=== PATIENT | female | born 1945 | race Caucasian/White ===

== ENCOUNTER → 2017-12-27 12:06 | Outpatient (CLI) | payer MEDICARE, OTHER, SELFPAY ==
--- NOTE | 2017-12-27 | IMM_PTH ---
PATIENT: GABBY TOWNSEND LOC: [facility] U#:[id number] AGE/SX: 80/F ROOM: RE12/27/[address]: Dr. Alexandre Otto MD : 1945 BED: DIS: SPEC #: [id number] RECD: 12/28/17 10:25 STATUS: LUZ REDeniz #: [id number] RENATA: 12/27/17 00:[address]: Alexandre Otto DEPT: IMMUNOHISTOCHEMISTRY RECD BY: Gianna Belle ENTERED: 12/28/17 10:26 SP TYPE: IMMUNO OTHR DR: Dr. Jb Cast MD Tissues: Right breast, NOS Procedures: CK5-6 (add) CK8 (add) E-CAD (add) HER2 CHONG (add) KI-67 (add) P53 (add) KY (add) ER (initial) PHYSICIAN & INSTITUTION [place] [id number] SPECIMEN INFORMATION: Tissue Source: Right breast Clinical Info: Right breast lump Specimen Number: [id number] CPT code: 46741, 73037 x4, 46412 x3 METHODOLOGY: Deparaffinized sections of prefer/formalin-fixed tissue or PAP/DQ stained slides are incubated with monoclonal/polyclonal antibodies/oligonucleotide probes. Localization is made via biotin free immunoperoxidase method. Appropriate controls are performed and reacted as expected. Results on target cell population are indicated in the following table: RESULTS: ANTIBODY / CLONE RESULT E-Cad (ECH-6) positive CK8 (49ogioN24) positive CK5-6 (D5 & 1684) negative Ki-67 (30-9) positive, low P53 (DO-7) positive MORPHOMETRIC ANALYSIS ER (clone 6F11) >95%, strong KY (clone 16/1E2) 51%, weak Her-2Neu (clone CB11) 0 The prognostic test for HER2 is performed on formalin-fixed paraffin embedded tissue. A 3+ (positive) staining pattern is defined as intense, homogeneous, complete, circumferential membranous staining in >10% of contiguous tumor cells. A similar weak (2+) staining pattern is interpreted as equivocal. ARISTIDES follow-up testing is recommended for all equivocal cases. Positivity/negativity for ER/KY is reported if > or < 1% of the tumor cells are immuno- reactive, respectively. The ASCO/CAP criteria is used for scoring. Reference: Journal of Clinical Oncology, 2013; 31:9871-4042 & 2010; 16:0079-5004. Duration of fixation: 9.5 Hrs; Sample Adequate: Yes. These assays have not been validated on decalcified tissues. Results should be interpreted with caution given the likelihood of false negativity on decalcified specimens. These tests were developed and their performance characteristics determined by [facility]. They may not have been cleared or approved by the U.S. Food and Drug Administration. The FDA has determined that such clearance or approval is not necessary. INTERPRETATION: Right breast, biopsy: Invasive ductal carcinoma, nuclear grade 2. Positive for estrogen receptors (favorable prognostic indicator). Positive for progesterone receptors (favorable prognostic indicator). Negative for overexpression of [id number]. SJ:tori 12/31/17
--- NOTE | 2017-12-27 10:00 | BRBX_PTH ---
PATIENT: GABBY TOWNSEDN LOC: [facility] U#:[id number] AGE/SX: 80/F ROOM: RE12/27/[address]: Dr. Alexandre Otto MD : 1945 BED: DIS: SPEC #: [id number] RECD: 12/27/17 11:50 STATUS: LUZ JUDY #: [id number] RENATA: 12/27/17 10:[address]: Alexandre Otto DEPT: SURGICAL PATHOLOGY RECD BY: Desmond Richardson ENTERED: 12/27/17 13:27 SP TYPE: BREAST BX OTHR DR: Dr. Jb Cast MD Tissues: Right breast, NOS Procedures: Surgery Specimen Level IV HEADER OPERATION: Right breast biopsy PRE-OP DIAGNOSIS: Right breast lump TISSUE SUBMITTED: Right breast tissue ISCHEMIC TIME: 1 minute FIXATION TIME: 9.5 hours MICROSCOPIC DIAGNOSIS Right breast, core biopsy: Invasive ductal carcinoma with apocrine features, nuclear 2 (1 cm in greatest length). SJ:tori 12/28/17 COMMENT Immunohistochemistry ([id number]) supports the above diagnosis. ER/OR/Zrx4taw studies are being performed on sections of tumor and the results from this study will be reported separately ([id number]). Case has been reviewed in consultation with Dr. Beck who concurs with the above diagnosis. IDC:AM MICROSCOPIC DESCRIPTION Slides are reviewed. GROSS DESCRIPTION Received in fixative is one container labeled with the patient's name and designated right breast. The specimen consists of two elongated fragments of coreas-yellow fibroadipose tissue that in aggregate measure 2 x 0.2 x 0.1 cm. The entire specimen is submitted in one cassette. / JACK:tori 12/27/17 TC:0 CPT: 36067
== END ==
PROVIDERS: Visit Provider Surgery
DX: C50.911 Malignant neoplasm of unspecified site of right female breast (principal)
CPT/HCPCS: 88305; 88341; 88342

== ENCOUNTER → 2018-01-08 09:09 | Outpatient (CLI) | payer MEDICARE, OTHER, SELFPAY ==
--- NOTE | 2018-01-08 09:18 | MRI_ITS ---
STUDY: BILATERAL BREAST MR WITHOUT AND WITH CONTRAST REASON FOR EXAM: Female, 72 years old. Newly diagnosed right invasive ductal carcinoma. TECHNIQUE: Multi-sequence multi-echo imaging of both breasts was performed with a dedicated breast coil. T1-weighted and T2-weighted images were performed before the administration of contrast. T1-weighted images were also performed after the administration of 10 mL of Gadavist contrast intravenously without complications. COMPARISON: Bilateral mammogram dated December 12, 2017 and right breast ultrasound dated December 18, 2017. FINDINGS: RIGHT BREAST: The breast tissue is fatty with minimal background enhancement. At the 9:00 position of the right breast there is a 1.4 cm x 1 cm x 0.9 cm. Irregular enhancing mass corresponding to the hypoechoic mass seen on the right breast ultrasound dated December 18, 2017. LEFT BREAST: The breast tissue is fatty with minimal background enhancement. At the 12:00 position of the left breast approximately 3.2 cm above the nipple and 4.8 cm behind the nipple there is an irregular enhancing mass measuring 1.9 cm x 1.5 cm x 1.3 cm. This lesion is highly suspicious for a contralateral breast cancer and a second look ultrasound with subsequent ultrasound-guided biopsy of this lesion is recommended. There are no enlarged or abnormal lymph nodes. There is no abnormality in the visualized regions of the chest or liver. MRI/Breast w/o and/or W Cont Bilat IMPRESSION: Lesion in the right breast corresponding to the ultrasonographic abnormality representing invasive ductal carcinoma. Left breast lesion highly suspicious, for which second look ultrasound with subsequent ultrasound-guided biopsy is recommended. Dr. Otto, the referring physician was given this information by Dr. Perez by phone at 1:35 PM, EST. CATEGORY: BIRADS Category 0: Incomplete. Need additional imaging evaluation. A letter regarding these results will be sent to the patient by the facility within 30 days. N.B. : The above information has been verbally conveyed by Blayne Perez MD to Alexandre Gannon , Referring Physician, on 01/08/2018 13:41:31 (ET). Electronically Signed: Blayne Perez MD at 13:43 EST , Service support , N.B. : The above information has been verbally conveyed by Blayne Perez MD to Alexandre Gannon , Referring Physician, on 01/08/2018 13:41:31 (ET).
--- NOTE | 2018-01-08 15:12 | US_ITS ---
STUDY: ULTRASOUND BREAST - LEFT REASON FOR EXAM: Female, 72 years old. Pain in the left breast. TECHNIQUE: Axial and longitudinal images of the LEFT breast were performed with a high resolution ultrasound transducer. COMPARISON: Comparison is made with prior MRI of the breast done earlier in the day. FINDINGS: LEFT Breast: There is a 1.1 cm x 1 cm x 1.2 cm hypoechoic irregular solid nodule at the 12:00 position of the breast at 3 cm from nipple. This lesion is taller than wide. A biopsy is recommended for further evaluation. US/Breast Limited Unilateral IMPRESSION: 1.1 cm x 1 cm x 1.2 cm irregular nodule at the 12:00 position of the breast at 3 cm from nipple as described. A biopsy is recommended. ASSESSMENT CATEGORY: BIRADS Category 5: Highly Suggestive of Malignancy - Appropriate Action Should Be Taken. A letter regarding these results will be sent to the patient by the facility within 30 days. Electronically Signed: Gabriel Tabor MD at 16:01 EST Tel [phone], Service support ,
== END ==
PROVIDERS: Family Provider Family Medicine; PCP Family Medicine; Visit Provider Surgery
DX: C50.911 Malignant neoplasm of unspecified site of right female breast (principal); N64.4 Mastodynia
CPT/HCPCS: 76642; 77059; A9585; C8908

== ENCOUNTER → 2018-01-10 12:40 | Outpatient (CLI) | payer MEDICARE, OTHER, SELFPAY ==
--- NOTE | 2018-01-10 | IMM_PTH ---
PATIENT: GABBY TOWNSEND LOC: [facility] U#:[id number] AGE/SX: 80/F ROOM: RE01/10/[address]: Dr. Alexandre Otto MD : 1945 BED: DIS: SPEC #: [id number] RECD: 01/11/18 10:58 STATUS: LUZ REQ #: [id number] RENATA: 01/10/18 00:[address]: Alexandre Otto DEPT: IMMUNOHISTOCHEMISTRY RECD BY: Gianna Belle ENTERED: 01/11/18 10:59 SP TYPE: IMMUNO OTHR DR: Dr. Jb Cast MD Tissues: Left breast, NOS Procedures: CALPONIN-1 (add) CK5-6 (add) CK8 (add) E-CAD (add) HER2 CHONG (add) KI-67 (add) P53 (add) GA (add) P40 (add) ER (initial) PHYSICIAN & INSTITUTION [address] [address] SPECIMEN INFORMATION: Tissue Source: Left breast tissue Clinical Info: Left breast abnormal MRI Specimen Number: [id number] CPT code: 00527, 11445 x6, 37933 x3 METHODOLOGY: Deparaffinized sections of prefer/formalin-fixed tissue or PAP/DQ stained slides are incubated with monoclonal/polyclonal antibodies/oligonucleotide probes. Localization is made via biotin free immunoperoxidase method. Appropriate controls are performed and reacted as expected. Results on target cell population are indicated in the following table: RESULTS: ANTIBODY / CLONE RESULT P53 (DO-7) positive, 5% Ki-67 (30-9) positive, low to moderate CK8 (40frwsH86) positive CK5-6 (D5 & 1684) negative Calponin-1 (WQ176K) negative P40 (BC28) negative E-Cad (ECH-6) positive MORPHOMETRIC ANALYSIS ER (clone 6F11) >95%, strong GA (clone 16/1E2) 3%, dim Her-2Neu (clone CB11) 3+ The prognostic test for HER2 is performed on formalin-fixed paraffin embedded tissue. A 3+ (positive) staining pattern is defined as intense, homogeneous, complete, circumferential membranous staining in >10% of contiguous tumor cells. A similar weak (2+) staining pattern is interpreted as equivocal. ARISTIDES follow-up testing is recommended for all equivocal cases. Positivity/negativity for ER/GA is reported if > or < 1% of the tumor cells are immuno- reactive, respectively. The ASCO/CAP criteria is used for scoring. Reference: Journal of Clinical Oncology, 2013; 31:0638-5083 & 2010; 16:9087-9932. Duration of fixation: 8 Hrs; Sample Adequate: Yes. These assays have not been validated on decalcified tissues. Results should be interpreted with caution given the likelihood of false negativity on decalcified specimens. These tests were developed and their performance characteristics determined by [facility]. They may not have been cleared or approved by the U.S. Food and Drug Administration. The FDA has determined that such clearance or approval is not necessary. INTERPRETATION: Left breast, biopsy: Invasive ductal carcinoma, nuclear grade 3/3. Positive for estrogen receptors (favorable prognostic indicator). Positive for progesterone receptors (favorable prognostic indicator). Positive for overexpression of EMO0akz. AM:tori 01/14/18
--- NOTE | 2018-01-10 | BRBX_PTH ---
PATIENT: GABBY TOWNSEND [facility] U#:[id number] AGE/SX: 80/F ROOM: RE01/10/[address]: Dr. Alexandre Otto MD : 1945 BED: DIS: SPEC #: [id number] RECD: 01/10/18 15:00 STATUS: LUZ JUDY #: [id number] RENATA: 01/10/18 00:[address]: Alexandre Otto DEPT: SURGICAL PATHOLOGY RECD BY: Raul Serrano ENTERED: 01/10/18 15:00 SP TYPE: BREAST BX OTHR DR: Dr. Jb Cast MD Tissues: Left breast, NOS Procedures: Surgery Specimen Level IV HEADER OPERATION: Left breast biopsy PRE-OP DIAGNOSIS: Left breast abnormal MRI TISSUE SUBMITTED: Left breast tissue ISCHEMIC TIME: 1 minute FIXATION TIME: 8 hours MICROSCOPIC DIAGNOSIS Left breast, core biopsy: Invasive ductal carcinoma with the following characteristics: Maximal length - 8 mm Nuclear grade ? 01/26 AM:rg 01/11/18 COMMENT The carcinoma has apocrine features. ER/NE/Wgp4mym studies are being performed on sections of tumor and the results from this study will be reported separately ([id number]). Reference is made to the patient?s right breast needle core biopsy from 12/28/17 ([id number]) in which invasive ductal carcinoma with apocrine features and nuclear grade 2 was identified. Case has been reviewed in consultation with Dr. Escobar who concurs with the above diagnosis. IDC:JACK MICROSCOPIC DESCRIPTION Slides are reviewed. GROSS DESCRIPTION Received in fixative is one container labeled with the patient's name and designated left breast. The specimen consists of multiple elongated fragments of coreas-yellow fibroadipose tissue that in aggregate measure 2.5 x 0.5 x 0.1 cm. The entire specimen is submitted in one cassette. / JACK:tori 01/10/18 TC:0 CPT: 40874
== END ==
PROVIDERS: Family Provider Family Medicine; PCP Family Medicine; Visit Provider Surgery
DX: R92.8 Other abnormal and inconclusive findings on diagnostic imaging of breast (principal); C50.912 Malignant neoplasm of unspecified site of left female breast
CPT/HCPCS: 88305; 88341; 88342

== ENCOUNTER → 2018-01-14 07:24 | Outpatient (CLI) | payer MEDICARE, OTHER, SELFPAY ==
--- NOTE | 2018-01-14 08:00 | PET_ITS ---
EXAMINATION: FDG PET CT INDICATIONS: A 72-year-old female with reported history of carcinoma of the breast presenting for initial staging examination. COMPARISON EXAMINATION: None available. INDEX LESION SIZE SUV INTERPRETATION Left breast nodular 11.6 mm (frame 227) 4.4 Fulfills quantitative criteria for viable neoplasm NON-INDEX LESION SIZE SUV INTERPRETATION Left adrenal gland 1.9 Quantitative criteria for viable neoplasm are not fulfilled TECHNIQUE: Following the intravenous administration of 13.4 mCi of F-18 deoxyglucose via the left hand, multiplanar image acquisitions of the neck, chest, abdomen and pelvis to level of mid thigh, obtained at one hour post radiopharmaceutical administration contemporaneously interpreted with the current CT of the neck, chest, abdomen and pelvis to level of mid thigh, dated 01/14/18 via coregistration reveal: SERUM GLUCOSE LEVEL: 133 mg/dl. HEIGHT: 65 inches. WEIGHT: 230 lbs. FINDINGS: 1. Focal increased glucose concentration is defined in a single nodular focus within the left breast. The calculated maximum standard uptake value is 4.4. The maximal axial diameter of the corresponding metabolic, morphologic abnormality on review of CT of the thorax dated 01/14/18 is 11.6 mm (AP). 2. Asymmetric increased glucose concentration is observed in the left upper abdomen contiguous to the left adrenal gland generating a calculated maximum standard uptake value of 1.9. Quantitative criteria for viable neoplasm are not fulfilled. 3. Normal physiologic distribution of the radiopharmaceutical is apparent in the hepatic (2.9) and splenic parenchyma, both renal units, bladder and visualized intestinal tract. There is uniform distribution of the radiopharmaceutical concentration compared on the cerebellar hemispheres and cerebral cortex. Diffuse intestinal tract activity is noted throughout all four quadrants of the abdominal-pelvic retroperitoneum, mesentery consistent with normal physiologic distribution of the radiopharmaceutical. Prominent glucose metabolism is diffusely defined in the descending thoracic and focally apparent in the abdominal aorta. Pertinent CT findings are as follows. CHEST: An azygos fissure is defined. There are no parenchymal densities-nodules noted in the right-left hemithorax manifesting quantitatively significant increased glucose metabolism. Bilateral subcentimeter axillary soft tissue densities-lymph nodes with fatty hilus formation are ametabolic. Atherosclerotic calcification is defined in the thoracic aorta without evidence of dilatation, aneurysm formation. Coronary arterial calcification is observed. ABDOMEN AND PELVIS: Atherosclerotic calcification is defined in the abdominal aorta without evidence of dilatation, aneurysm formation. Abdominal-pelvic arterial calcification is observed. A fat-containing ventral periumbilical hernia is noted. Colonic diverticulosis is defined. Calcifications are noted in the bilateral lower hemipelvis in proximity to the adnexa without evidence of facilitated glucose metabolism. SKELETAL: Degenerative changes defined in the cervical, thoracic and lumbar spine demonstrate no evidence for glucose hypermetabolism. PET/PET/CT Tumor Base -Thigh Init IMPRESSION: 1. ABNORMAL EXAMINATION INDICATIVE OF MALIGNANT VIABLE NEOPLASM. 2. Increased glucose concentration observed in the left breast fulfills quantitative criteria for viable neoplasm. 3. Enhanced glucose concentration demonstrated in the left adrenal gland does not fulfill quantitative criteria for viable adrenal gland neoplasm. (Jessi and Chito, Journal of Nuclear Medicine 42:151 P 2002. Lyle, Journal of Nuclear Medicine 45:1340, 2004). 4. Facilitated glucose metabolism manifest in descending thoracic, as well as abdominal aorta is commensurate with activated leukocytes associated with atherosclerotic plaque formation. (Margo hamlin al, Clinical Nuclear Medicine 29:93, 2004). 5. No other quantitatively significant hypermetabolic abnormalities are noted. There is no definitive scintigraphic evidence of distant metastatic disease. Electronic Signature Desmond Delgado D.O. Electronically Signed: Desmond Delgado DO at 23:06 EST Tel , Service support ,
== END ==
PROVIDERS: Family Provider Family Medicine; PCP Family Medicine; Visit Provider Surgery
DX: C50.411 Malignant neoplasm of upper-outer quadrant of right female breast (principal); C50.912 Malignant neoplasm of unspecified site of left female breast
CPT/HCPCS: 78815; A9552

== ENCOUNTER 2018-01-16 10:39 | Observation (INO) | payer MEDICARE, OTHER, SELFPAY ==
[2018-01-08 09:43] LABS: Hematocrit 43.5 % (37-47); Mean Corp Hgb Conc 32.2 g/gl (32-36); Mean Corpuscular Hgb 29.2 pg (27.0-32.0); Mean Corpuscular Volume 90.6 fL (81-99); Mean Platelet Vol. 10.2 fl (6.2-12.0); Platelet Count 347 K/mm3 (150-450); RBC Distribution Width CV 13.4 % (11.6-14.6); Scan Indicated on CBC? Y/N NO
[2018-01-08 09:48] LABS: ALB/GLOB Ratio 0.9 RATIO (0.9-2.4); AST(SGOT) 12 U/L (15-37); Alanine Aminotransfer ALT/SGPT 22 U/L (13-56); Albumin, Serum 3.7 g/dL (3.2-5.0); Alkaline Phosphatase 77 U/L (45-117); Anion Gap 5 (5-15); BUN 13 mg/dL (7-18); BUN/Creat Ratio 16.8 RATIO (10-20); Calcium,Total 9.5 mg/dL (8.5-10.1); Chloride 101 mmol/L (98-107); Creatinine, Serum 0.78 mg/dL (0.55-1.02); EST Glomerular Filtration Rate 78 mL/min (>60); Est Glom Filt Rate - Afr Amer 94 mL/min (>60); Globulin 4.1 g/dL (2.2-4.2); Glucose 178 mg/dL (74-106); Potassium 3.8 mmol/L (3.5-5.1); Protein, Total 7.8 g/dL (6.4-8.2); Sodium Level 138 mmol/L (136-145)
--- NOTE | 2018-01-08 10:51 | EKG12_ITS ---
Test Reason : PRE OP Blood Pressure : / mmHG Vent. Rate : 066 BPM Atrial Rate : 066 BPM P-R Int : 144 ms QRS Dur : 094 ms QT Int : 402 ms P-R-T Axes : 019 030 048 degrees QTc Int : 421 ms Sinus rhythm with frequent Premature ventricular complexes in a pattern of bigeminy Confirmed by DEVIKA CHERY, THOMAS ([id number]), marketing editor SAY GARCIA ([id number]) on 01/09/2018 1:25:29 PM Referred By: Alexandre Otto Confirmed By:THOMAS FORTUNE MD
--- NOTE | 2018-01-08 11:00 | RAD_ITS ---
STUDY: X-RAY CHEST REASON FOR EXAM: Female, 72 years old. Preoperative evaluation. Right breast lumpectomy. TECHNIQUE: Frontal and lateral views of the chest. COMPARISON: November 23, 2015 FINDINGS: The lungs are clear and expanded. There is no demonstrated pleural abnormality. There is stable borderline cardiomegaly. Normal mediastinum and miryam. Normal visualized pulmonary arteries. Normal visualized aortic arch and descending thoracic aorta. There are diffuse degenerative changes of the visualized thoracic spine. Normal visualized ribs, clavicles, and shoulders. There is no demonstrated abnormality of the visualized soft tissue structures of the upper abdomen. RAD/Chest PA and Lateral IMPRESSION: No active or acute cardiopulmonary disease. Electronically Signed: Blayne Perez MD at 11:37 EST , Service support ,
[2018-01-08 13:58] LABS: Hemoglobin A1c 6.9 % (4.2-6.3)
[2018-01-16] VITALS (14 sets, daily range): BP systolic 117–171; BP diastolic 58–70; PULSE 61–78; RESP 16–20; TEMP 36.6–36.7; O2SAT 92–97; BMI 38.0
--- NOTE | 2018-01-16 | IMM_PTH ---
PATIENT: GABBY TOWNSEND LOC: [facility] U#:[id number] AGE/SX: 72/F ROOM: [facility]08 RE01/16/[address]: Dr. Alexandre Otto MD : 1945 BED: 1 DIS: 01/17/2018 SPEC #: [id number] RECD: 01/18/18 10:46 STATUS: LUZ REQ #: [id number] RENATA: 01/16/18 00:[address]: Alexandre Otto DEPT: IMMUNOHISTOCHEMISTRY RECD BY: Gianna Belle ENTERED: 01/18/18 10:49 SP TYPE: IMMUNO OTHR DR: Dr. Jb Cast MD Tissues: A - Axillary lymph node, NOS B - Axillary lymph node, NOS C - Axillary lymph node, NOS Procedures: CK7 (add) Pankeratin (initial) Pankeratin (add) PHYSICIAN & INSTITUTION [place] [address] SPECIMEN INFORMATION: Tissue Source: A ? Right axillary sentinel lymph nodes, B ? Right breast and additional sentinel lymph node, C - Left axillary sentinel lymph nodes Clinical Info: Bilateral breast CA Specimen Number: [id number] A1-A3, A5-A13, B1 & 2, C1-C6 CPT code: 88992 x3, 15231 x37 METHODOLOGY: Deparaffinized sections of prefer/formalin-fixed tissue or PAP/DQ stained slides are incubated with monoclonal/polyclonal antibodies/oligonucleotide probes. Localization is made via biotin free immunoperoxidase method. Appropriate controls are performed and reacted as expected. Results on target cell population are indicated in the following table: RESULTS: ANTIBODY / CLONE RESULT Block A1 AE1-3 (AE1/AE3/PCK26) negative CK7 (OV-TL12/30) negative Block A2 AE1-3 (AE1/AE3/PCK26) negative CK7 (OV-TL12/30) negative Block A3 AE1-3 (AE1/AE3/PCK26) negative CK7 (OV-TL12/30) negative Block A5 AE1-3 (AE1/AE3/PCK26) negative CK7 (OV-TL12/30) negative Block A6 AE1-3 (AE1/AE3/PCK26) negative CK7 (OV-TL12/30) negative Block A7 AE1-3 (AE1/AE3/PCK26) negative CK7 (OV-TL12/30) negative Block A8 AE1-3 (AE1/AE3/PCK26) negative CK7 (OV-TL12/30) negative Block A9 AE1-3 (AE1/AE3/PCK26) negative CK7 (OV-TL12/30) negative Block A10 AE1-3 (AE1/AE3/PCK26) negative CK7 (OV-TL12/30) negative Block A11 AE1-3 (AE1/AE3/PCK26) negative CK7 (OV-TL12/30) negative Block A12 AE1-3 (AE1/AE3/PCK26) negative CK7 (OV-TL12/30) negative Block A13 AE1-3 (AE1/AE3/PCK26) negative CK7 (OV-TL12/30) negative Block B1 AE1-3 (AE1/AE3/PCK26) negative CK7 (OV-TL12/30) negative Block B2 AE1-3 (AE1/AE3/PCK26) negative CK7 (OV-TL12/30) negative Block C1 AE1-3 (AE1/AE3/PCK26) negative CK7 (OV-TL12/30) negative Block C2 AE1-3 (AE1/AE3/PCK26) negative CK7 (OV-TL12/30) negative Block C3 AE1-3 (AE1/AE3/PCK26) negative CK7 (OV-TL12/30) negative Block C4 AE1-3 (AE1/AE3/PCK26) negative CK7 (OV-TL12/30) negative Block C5 AE1-3 (AE1/AE3/PCK26) negative CK7 (OV-TL12/30) negative Block C6 AE1-3 (AE1/AE3/PCK26) negative CK7 (OV-TL12/30) negative These tests were developed and their performance characteristics determined by [facility]. They may not have been cleared or approved by the U.S. Food and Drug Administration. The FDA has determined that such clearance or approval is not necessary. INTERPRETATION: A. Right axillary sentinel lymph nodes, biopsy: Four out of four lymph nodes, negative for metastatic carcinoma. B. Right breast and sentinel lymph node, mastectomy and sentinel lymph node, biopsy: One lymph node, negative for metastatic carcinoma. C. Left axillary sentinel lymph nodes, biopsy: Three out of three lymph nodes, negative for metastatic carcinoma. SJ:tori 01/21/18
--- NOTE | 2018-01-16 | AXNB_PTH ---
PATIENT: GABBY TOWNSEND LOC: MS2 U#:[id number] AGE/SX: 72/F ROOM: [facility] [place] [facility] [place] RE01/16/[address]: Dr. Alexandre Otto MD : 1945 BED: 1 DIS: 01/17/2018 SPEC #: [id number] RECD: 01/16/18 08:26 STATUS: LUZ REDeniz #: [id number] RENATA: 01/16/18 00:[address]: Alexandre Otto DEPT: SURGICAL PATHOLOGY RECD BY: Gianna Belle ENTERED: 01/16/18 09:34 SP TYPE: AX NODE BX OTHR DR: Dr. Jb Cast MD Tissues: A - Axillary lymph node, NOS B - Axillary lymph node, NOS C - Axillary lymph node, NOS D - Left breast, NOS Procedures: Frozen Section (charge) Frozen Section Add'l ([facility]) Surgery Specimen Level V Surgery Specimen Level Frozen (no charge) HEADER OPERATION: Bilateral mastectomy with sentinel lymph node biopsies PRE-OP DIAGNOSIS: Bilateral breast CA TISSUE SUBMITTED: A ? Right sentinel lymph node tissue FS 0823, B ? Right breast and sentinel node FS 0839, C ? Left sentinel node FS 0953, D ? Left breast (suture at axillary aspect) FROZEN SECTION DIAGNOSIS A. Right axillary sentinel lymph nodes, biopsy: Four out of four lymph nodes negative for carcinoma. B. Right breast additional sentinel lymph node, biopsy: One out of one lymph node negative for carcinoma. C. Left axillary sentinel lymph node, biopsy: Two out of two lymph nodes negative for carcinoma. AM:tori 01/16/18 MICROSCOPIC DIAGNOSIS A. Right axillary sentinel lymph node tissue, biopsy: Four out of four lymph nodes, negative for metastatic carcinoma. B. 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 One sentinel lymph node, negative for metastatic carcinoma. C. Left axillary sentinel lymph node tissue, biopsy: Three out of three lymph nodes, negative for metastatic carcinoma. D. 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 INVASIVE BREAST CANCER SUMMARY: (Including specimens A & B) Right breast and axillary sentinel lymph nodes. Specimen ? total breast (including nipple and skin). Procedure ? total mastectomy (including nipple and skin). Lymph node sampling ? sentinel lymph nodes Specimen integrity ? single, intact specimen Specimen laterality ? right breast Tumor site ? central portion Tumor size ? 1.5 x 1.2 x 1 cm Tumor focality ? single focus of invasive carcinoma. Macroscopic and Microscopic extent of tumor: Skin ? invasive carcinoma does not invade into the dermis or epidermis. Nipple ? ductal carcinoma does not involve nipple epidermis. Skeletal muscle ? 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 Extensive intraductal component (EIC) - negative Estimated size (extent) of DCIS - ductal carcinoma in situ comprises about 10% of the total tumor volume and it is present in the area of invasive ductal carcinoma. Number of blocks with DCIS - 2 Number of blocks examined ? 10 (breast tissue) Architectural patterns ? solid and cribriform Nuclear grade ? grade 2 (intermediate) Necrosis ? present, focal (single cell necrosis) Lobular carcinoma in situ (LCIS) ? not identified Histologic type of invasive carcinoma ? invasive ductal carcinoma (no special type) Histologic Grade ([place] grade): Glandular/tubular differentiation - score 3 Nuclear pleomorphism - score 2 Mitotic count ? score 1 Overall grade - 2 (score of 6) Margins: Margins uninvolved by invasive carcinoma. The invasive ductal carcinoma and ductal carcinoma in situ are 1.6 cm away from closest posterior margin. Treatment effect ? response to presurgical (neoadjuvant) therapy ? no known presurgical therapy. Lymph-Vascular invasion ? not identified Dermal lymph-vascular invasion - not identified Lymph nodes: Number of sentinel lymph nodes examined - 5 Total number of lymph nodes examined (sentinel and nonsentinel) - 5 Number of lymph nodes with macrometastases - 0 Number of lymph nodes with micrometastases - 0 Number of lymph nodes with isolated tumor cells - 0 Method of evaluation of sentinel lymph nodes - H & E, multiple levels and IHC. Distance metastasis ? not applicable Additional pathologic findings ? fibrocystic changes Ancillary studies - previously performed on section of tumor ([id number] / [id number]). ER ? positive (>95%, strong) UT ? positive (51%, weak) Her2 homero ? negative (0) Her2 by dual ARISTIDES ? not performed Microcalcifications ? not identified Clinical history - please make reference to previous specimen ([id number]) right breast, core biopsy with diagnosis of invasive ductal carcinoma with apocrine features, nuclear grade 2. PATHOLOGIC STAGE: pT1c pN0(sn) Mx The above summary is in compliance with [employer] (CAP) Cancer Protocols Checklist and [place] [employer] Committee on Cancer (AJCC), Staging Manual, 8th Ed. INVASIVE BREAST CANCER SUMMARY: (including specimens C & D) left breast and sentinel lymph node. Specimen ? total breast (including nipple and skin). Procedure ? total mastectomy (including nipple and skin). Lymph node sampling ? sentinel lymph node Specimen integrity ? single, intact specimen Specimen laterality - left Tumor site ? central portion Tumor size ? 1.5 cm in diameter Tumor focality ? single focus of invasive carcinoma Macroscopic and Microscopic extent of tumor: Skin - invasive carcinoma does not invade into the dermis or epidermis. Nipple - ductal carcinoma in situ does not involve nipple epidermis. Skeletal muscle ? no skeletal muscle present. 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 Extensive intraductal component (EIC) - negative Estimated size (extent) of DCIS - ductal carcinoma in situ comprises about 1% of the total tumor volume and present in the area of invasive ductal carcinoma. Number of blocks with DCIS - 3 Number of blocks examined - 12 Architectural patterns ? cribriform Nuclear grade ? nuclear grade 3 (high) Necrosis ? not identified Lobular carcinoma in situ (LCIS) ? not present Histologic type of invasive carcinoma - invasive ductal carcinoma (no special type) Histologic Grade ([place] grade): Glandular/tubular differentiation - score 3 Nuclear pleomorphism - score 3 Mitotic count ? score 1 Overall grade - 2 (score of 7) Margins: Margins uninvolved by invasive carcinoma. The invasive carcinoma and ductal carcinoma in situ are 3 cm away from the closest posterior margin. Treatment effect ? response to presurgical (neoadjuvant) therapy ? no known presurgical therapy. Lymph-Vascular invasion ? not identified Dermal lymph-vascular invasion - not identified Lymph nodes: Number of sentinel lymph nodes examined - 3 Total number of lymph nodes examined (sentinel and nonsentinel) - 3 Number of lymph nodes with macrometastases, micrometastases and isolated tumor cells - 0 Method of evaluation of sentinel lymph nodes - H & E, multiple levels and IHC. Distance metastasis ? not applicable Additional pathologic findings ? fibrocystic changes and intraductal hyperplasia without atypia. Ancillary studies - previously performed on section of tumor ([id number] / [id number]). ER ? positive (>95%, strong) UT ? positive (3%, dim) Her2 homero ? positive (+) Her2 by dual ARISTIDES ? not performed Microcalcifications ? present in benign breast tissue Clinical history - please make reference to previous specimen ([id number]) left breast, core biopsy with diagnosis of invasive ductal carcinoma. PATHOLOGIC STAGE: pT1c pN0(sn) Mx The above summary is in compliance with [employer] (CAP) Cancer Protocols Checklist and [place] [employer] Committee on Cancer (AJCC), Staging Manual, 8th Ed. SJ:tori 01/21/18 COMMENT A-C. The lymph nodes are negative for metastatic carcinoma on multiple H & E levels and immunohistochemical stains for cytokeratins ([id number]). Case has been reviewed in consultation with Dr. Beck who concurs with the above diagnosis. IDC:AM MICROSCOPIC DESCRIPTION Slides are reviewed. GROSS DESCRIPTION A - Received fresh for frozen section diagnosis labeled with the patient's name is a specimen designated right sentinel lymph node tissue. The specimen consists of a piece of adipose tissue containing nodule measuring 10 x 10 x 2 cm. Four fatty lymph nodes are identified measuring 1, 2, 3.5 and 5 cm in greatest dimension. Four frozen sections are done as follows: 1 ? one lymph node, entirely submitted, 2 ? one lymph node, entirely submitted, 3 ? lead generation representative section third largest lymph node, 4- lead generation representative section fourth lymph node (largest lymph node). / AM:tori 01/16/18 More sections are submitted as follows: 5-9 ? lymph node (third largest lymph node), 10-13 ? lymph node (largest lymph node). Fatty portions of the lymph nodes are not submitted. / SJ:tori 01/17/18 B - Received fresh for frozen section consultation labeled with the patient's name is a specimen designated right breast. The specimen consists of a right mastectomy specimen measuring 29 x 21 x 6.5 cm and weighing 1091 gm. The anterior surface contains an ellipse of skin containing grossly unremarkable nipple and areola. The skin fragment measures 18 x 8.5 cm. The axillary portion of the breast is marked with a suture adjacent to a lymph node. The nodule at the suture measures 2.5 x 1.5 x 0.8 cm. This nodule is serially sectioned and totally submitted for frozen section consultation in two blocks. The mastectomy specimen is inked as follows: superior ? blue, inferior ? green and posterior ? black. Serial sections reveal a firm, coreas-white mass measuring 1.5 x 1.2 x 1 cm in the central portion of breast. The mass is located 1.6 cm from its closest (posterior) margin of excision. The remainder of the breast parenchyma is coreas-yellow and interrupted focally by dense white fibrous streaks. No other mass lesions are identified. Careful dissection of the tissue from its most medial portion does not reveal additional nodules resembling lymph node. Block Tester sections are submitted in 12 cassettes as follows: 1 & 2 ? lymph node for frozen section, 3 ? nipple and areola, 4 ? perpendicular superior and inferior margins, 5 ? perpendicular medial margin, 6 ? perpendicular lateral margin, 7 & 8 ? tumor, totally submitted, 9-12 ? lead generation representative sections of uninvolved breast parenchyma. / AM: 01/16/18 More sections are submitted as follows: 13 ? posterior resection margin. / SJ: 01/18/18 C - Received fresh for frozen section diagnosis labeled with the patient's name is a specimen designated left sentinel lymph node. The specimen consists of two pieces of yellow adipose tissue containing nodule measuring 10 x 5.5 x 2 cm. Two lymph nodes are identified measuring 2 and 5 cm in greatest dimension. The lymph nodes are submitted for frozen section diagnosis as follows: 1 ? one smaller lymph node, entirely submitted, 2 ? lead generation representative section of larger lymph node. / AM: 01/16/18 A third smaller lymph node measuring 0.5 cm in greatest dimension is also noted. More sections are submitted as follows: 3-5 ? lead generation representative sections of larger lymph node, (fatty portion is not submitted). 6 ? smallest bisected lymph node, entirely submitted. / SJ: 01/17/18 D - Received in fixative is one container labeled with the patient's name and designated left breast. The specimen consists of a mastectomy specimen consisting of breast tissue with overlying skin ellipse and portion of axillary tail. The breast tissue measures 23 x 22 x 7 cm and the axillary tail measures 8 x 3 x 3 cm. The overlying skin ellipse measures 22 x 6 cm and nipple measures 1 cm in greatest dimension. No skin lesion is identified. The resection margins are inked as follows: superior ? blue, inferior ? green, medial ? red, lateral ? orange including axillary tail, posterior ? black. Serial sections reveal a coreas round nodular mass in the central portion of the breast tissue measuring 1.5 cm in diameter. The tumor is 3 cm away from the closest posterior margin. Sections of the rest of the specimen reveal coreas-yellow adipose cut surfaces mixed with coreas-white fibrous areas. Sections of the axillary tail tissue do not reveal any obvious lymph node tissue. Block Tester sections are submitted in 12 cassettes as follows: 1 ? nipple, entirely submitted, 2 ? perpendicular medial, lateral margin and skin, 3 ? perpendicular superior margin and posterior margin, 4-6 ? entire tumor, 7 & 8 ? lead generation representative sections adjacent to the tumor, 9-12 - lead generation representative sections away from the tumor. / JACK:tori 01/17/18 TC:0 CPT: 98715 x3, 45974, 43959 x3, 26799 x5
[2018-01-16 06:15] LABS: Bedside Glucose 149 mg/dL (70-110)
--- NOTE | 2018-01-16 06:47 | PCM.DC.BS ---
Discharge Diet: No Restrictions Discharge Activity: May Not Drive - for 2-3 days or while taking narcotic pain meds. May shower in (days): 6 - May shower 1 day after drains removed Lifting Restrictions: 10 pounds for 1 week. Call your doctor if your incision/area has: Continuous Slow Oozing, Sudden Increased Bleeding Call your doctor if you observe: Fever of 101 or Higher Suture Line Care: Avoid Pulling/Pushing, Avoid Pinching/Bending Remove Dressing in (days):: 1 Additional Dressing/Incision Instructions:: Please change the dressings around your drains daily. You may use Q-tips and peroxide to cleanse around the drains themselves. We apply dry gauze and paper tape. You may then reapply the bias ply elastic wrap to hold dressings in place Allergies/Adverse Reactions: Allergies povidone-iodine [From Betadine] Allergy (Verified 01/07/18 08:50) Itching soap [From Betadine] Allergy (Verified 01/07/18 08:50) Itching pravastatin sodium [From Pravachol] Adverse Reaction (Verified 01/07/18 08:50) LEG CRAMPS rosuvastatin calcium [From Crestor] Adverse Reaction (Verified 01/07/18 08:50) LEG CRAMPS simvastatin Adverse Reaction (Verified 01/07/18 08:50) LEG CRAMPS Medications to take at Discharge Atorvastatin Calcium [Lipitor] 10 mg PO QHS 05/26/15 Ergocalciferol [Vitamin D] 50,000 unit PO MOTH 05/26/15 Hydrochlorothiazide [Hctz] 25 mg PO DAILY 05/26/15 Nitroglycerin [Nitrostat] 0.4 mg SUBLINGUAL Q5M PRN 05/26/15 Ramipril [Altace] 2.5 mg PO DAILY 05/26/15 Aspirin [Aspirin, Baby] 81 mg PO DAILY@0800 #1 06/10/15 Atenolol [Tenormin (beta leonard)] 50 mg PO DAILY 11/23/15 Ibandronate Sodium [Boniva] 150 mg PO Q30D 11/23/15 Metformin HCl [Glucophage] 500 mg PO BIDCM 11/23/15 Isosorbide Mononitrate [Imdur] 30 mg PO DAILY #30 tab 11/24/15 Hydrocodone Bitart/Apap 5-325 [[place] 5MG-325MG] 1 tab PO Q6H PRN PRN 3 Days #10 tab 01/16/18 The following prescriptions were given: Hydrocodone Bitart/Apap 5-325 [[place] 5MG-325MG] 1 tab PO Q6H PRN PRN 3 Days #10 tab PRN Reason: Pain Primary Care Physician: Jb Cast MD [Primary Care Provider] - Please Follow Up With: Alexandre Otto MD When: [phone] Appt. on Sunday 01/21 please
--- NOTE | 2018-01-16 06:50 | DCINST_ITS ---
Discharge Diet: No Restrictions Discharge Activity: May Not Drive - for 2-3 days or while taking narcotic pain meds. May shower in (days): 6 - May shower 1 day after drains removed Lifting Restrictions: 10 pounds for 1 week. Call your doctor if your incision/area has: Continuous Slow Oozing, Sudden Increased Bleeding Call your doctor if you observe: Fever of 101 or Higher Suture Line Care: Avoid Pulling/Pushing, Avoid Pinching/Bending Remove Dressing in (days):: 1 Additional Dressing/Incision Instructions:: Please change the dressings around your drains daily. You may use Q-tips and peroxide to cleanse around the drains themselves. We apply dry gauze and paper tape. You may then reapply the bias ply elastic wrap to hold dressings in place Allergies/Adverse Reactions: Allergies povidone-iodine [From Betadine] Allergy (Verified 01/07/18 08:50) Itching soap [From Betadine] Allergy (Verified 01/07/18 08:50) Itching pravastatin sodium [From Pravachol] Adverse Reaction (Verified 01/07/18 08:50) LEG CRAMPS rosuvastatin calcium [From Crestor] Adverse Reaction (Verified 01/07/18 08:50) LEG CRAMPS simvastatin Adverse Reaction (Verified 01/07/18 08:50) LEG CRAMPS Medications to take at Discharge Atorvastatin Calcium [Lipitor] 10 mg PO QHS 05/26/15 Ergocalciferol [Vitamin D] 50,000 unit PO MOTH 05/26/15 Hydrochlorothiazide [Hctz] 25 mg PO DAILY 05/26/15 Nitroglycerin [Nitrostat] 0.4 mg SUBLINGUAL Q5M PRN 05/26/15 Ramipril [Altace] 2.5 mg PO DAILY 05/26/15 Aspirin [Aspirin, Baby] 81 mg PO DAILY@0800 #1 06/10/15 Atenolol [Tenormin (beta leonard)] 50 mg PO DAILY 11/23/15 Ibandronate Sodium [Boniva] 150 mg PO Q30D 11/23/15 Metformin HCl [Glucophage] 500 mg PO BIDCM 11/23/15 Isosorbide Mononitrate [Imdur] 30 mg PO DAILY #30 tab 11/24/15 Hydrocodone Bitart/Apap 5-325 [[place] 5MG-325MG] 1 tab PO Q6H PRN PRN 3 Days #10 tab 01/16/18 The following prescriptions were given: Hydrocodone Bitart/Apap 5-325 [[place] 5MG-325MG] 1 tab PO Q6H PRN PRN 3 Days #10 tab PRN Reason: Pain Primary Care Physician: Jb Cast MD [Primary Care Provider] - Please Follow Up With: Alexandre Otto MD When: [phone] Appt. on Sunday 01/21 please
[2018-01-16] MEDS: Isosulfan Blue 1% 5 ML Vial (07:35)
--- NOTE | 2018-01-16 10:50 | OP.PCM_ITS ---
Problem List (1) Bilateral breast cancer Status: Acute Qualifiers: Breast location: unspecified site of breast Estrogen receptor status: positive Patient sex: female Qualified Code(s): C50.911 - Malignant neoplasm of unspecified site of right female breast; C50.912 - Malignant neoplasm of unspecified site of left female breast; Z17.0 - Estrogen receptor positive status [ER+] Report of Operation Date of Procedure: 01/16/18 Pre-Operative Diagnosis: Outer mid right breast cancer, invasive ductal carcinoma. Upper mid left breast cancer, invasive ductal carcinoma Post-Operative Diagnosis: Same Surgery/Procedure Performed:: Bilateral axillary blue dye sentinel lymph node biopsies with bilateral mastectomies Description of Surgical Findings:: Timeout and informed consent was obtained. 72-year-old female was taken out from placement table. She underwent general anesthesia. Bilateral arms were carefully wrapped with soft roll. There were placed at right angles to the table on arm holders. Then the right breast was prepped with alcohol 2 cc of oral size over an blue dye was injected retroareolar this was chased with 5 cc of saline massage was performed for 3 minutes. Subsequently bilateral breasts were prepped and draped. A transverse elliptical excision of the nipple areolar complex on the right and a mastectomy form was pursued. Superior flaps were created first hemostasis was obtained throughout with hemoclips and electrocautery. The axillary was encountered and large fibrofatty conglomerate of lymph nodes encountered I dissected that free with hemostasis attained electrocautery and hemoclips that was submitted as axillary tissue on retrograde dissection identified blue dye lymphatic tracking that went to a single lymph node that was marked with a nylon suture and kept in place with the axillary tail the breast. The inferior flap was then created. The breast tissue was dissected off the pectoralis major with the electrocautery. 4 nodes in the axillary conglomerate was said to be negative for metastatic disease. The separate sentinel lymph node also is negative. That entire breast specimen was submitted fresh. Irrigation was performed with sterile water. Hemostasis was intact. 2 stab incision was made inferior and lateral to the wound and 2 BECCA drains were placed. There was secured skin with 3-0 nylon. The axillary drain was shortened. Then the superior and inferior flaps were secured to the chest wall with multiple sutures of interrupted 3-0 Vicryl. The wound was then closed with the same interrupted 3-0 Vicryl subdermal stitch. A similar procedure was performed on the left. Blue dye was injected retroareolar he was massaged after chasing it with 5 cc of saline. Again a transverse ellipse to include the nipple areolar complex was performed the superior flaps are created blue dye tracking was very quickly identified on the left this was used to dissect out 2 lymph nodes which were submitted and on frozen section was said to be negative. The inferior flaps were then created and again as on the right the breast tissue was dissected off the pectoralis major including the fascia with the specimen. A suture was placed in the axillary area of that specimen. Hemostasis was again intact again the wound was closed by completing the flaps to the chest wall with multiple interrupted 3 -0 Vicryl. Again 2 additional drains were placed in the left the wound was closed with the same technique. Steri-Strips Telfa bulky dry dressings were applied. The drains were connected to bulb suction. Sponge instrument and needle count were reported to the surgeon to be correct. Blood loss throughout the procedure was actually quite minimal at likely well under 100 cc for both procedures. Specimens include the right axillary conglomerative nodes. The right mastectomy with the suture marked sentinel node. The left blue dye sentinel lymph nodes ?2. The left breast specimen. Drains: 2 BECCA drains on either side. Blood loss minimal at less than 100 cc. Complications none. Alexandre Otto M.D., F.A.C.S.
[2018-01-16 11:36] LABS: Bedside Glucose 151 mg/dL (70-110)
[2018-01-16] MEDS: Lactated Ringers 1,000 ML 30 ML IV (11:50)
[2018-01-16 18:06] LABS: Bedside Glucose 152 mg/dL (70-110)
[2018-01-16] MEDS: Atorvastatin Calcium 10 MG Tablet PO (21:00)
[2018-01-16 21:35] LABS: Bedside Glucose 132 mg/dL (70-110)
[2018-01-16] MEDS: HYDROcodone Bitartrate/Apap 5/325 Tablet PO (21:57)
[2018-01-17 02:47] VITALS: BP 131/54; PULSE 69; RESP 18; TEMP 36.6; O2SAT 94
--- NOTE | 2018-01-17 05:57 | PCM.PROGNOTE ---
Patient Problems: Active and Suspected Problems (Last Reviewed 01/01/18 @ 10:13 by Mayr Lou Samuels) Bilateral breast cancer (Acute) Subjective: Pt comfortable ON oxygen--she stated this happened after a cscope as well - Physical Exam Lungs: - - Mastectomy incisions clean and viable Vital Signs Temp Pulse Resp BP Pulse Ox 97.9 F 69 18 131/54 H 94 01/17/18 02:47 01/17/18 02:47 01/17/18 02:47 01/17/18 02:47 01/17/18 02:47 Oxygen Flow Rate 1 Oxygen Delivery Method Room Air Weight: 228 lb 13.437 oz Body Mass Index (BMI) 38.0 Finger Stick Blood Glucose 151 Intake and Output for Last 24 Hours 01/15/18 01/16/18 01/17/18 23:59 23:59 23:59 Intake Total 3233 / 3233 256 / 256 Output Total 859 / 859 291 / 291 Balance 2374 / 2374 -35 / -35 POC Glucose 01/16/18 01/16/18 01/16/18 20:54 17:27 11:31 POC Glucose 132 H 152 H 151 H 01/16/18 06:12 POC Glucose 149 H Assessment/Plan Active and Suspected Problems (Last Reviewed 01/01/18 @ 10:13 by Mary Lou Samuels) Bilateral breast cancer (Acute) Dressing change Discharge Home oxygen if required F/U appt Sunday
--- NOTE | 2018-01-17 07:07 | NURSING ---
dressing to breast changed. telfa dressing applied to chest incision. steri stripes intact with old dried blood. hard to get quaze off due to sticking.then 4x4 quaze then abd dressing applied. drain sponge applied around ryan after site cleaned with perioxide. then new bio dressing applied
[2018-01-17 07:11] LABS: Bedside Glucose 119 mg/dL (70-110)
[2018-01-17 08:07] VITALS: O2SAT 92
[2018-01-17] MEDS: Aspirin 81 MG TAB.CHEW PO (08:13)
[2018-01-17 08:54] VITALS: BP 150/55; PULSE 75; RESP 16; TEMP 37.3; O2SAT 96
== END 2018-01-17 10:02 | disposition home or self-care (01) ==
LOC: SDC 11:49
PROVIDERS: Admitting Provider Surgery; Family Provider Family Medicine; PCP Family Medicine; Visit Provider Surgery
PROC: (CPT 19307; principal; 2018-01-16 07:00)
DX: C50.811 Malignant neoplasm of overlapping sites of right female breast (principal); C50.812 Malignant neoplasm of overlapping sites of left female breast; Z17.0 Estrogen receptor positive status [ER+]; Z79.899 Other long term (current) drug therapy; Z79.84 Long term (current) use of oral hypoglycemic drugs; Z79.82 Long term (current) use of aspirin; I10 Essential (primary) hypertension; Z95.5 Presence of coronary angioplasty implant and graft; E11.9 Type 2 diabetes mellitus without complications; I25.10 Atherosclerotic heart disease of native coronary artery without angina pectoris; E78.5 Hyperlipidemia, unspecified; Z86.718 Personal history of other venous thrombosis and embolism
CPT/HCPCS: 01922; 19303; 38525; 38900; 36415; 71046; 80053; 82962; 83036; 85027; 88305; 88307; 88309; 88331; 88332; 88341; 88342; 93005; 94762; 96374; 97802; 99218; J7120; G0378; G0379; J2405; J3490; Q9968

== ENCOUNTER → 2018-02-11 09:30 | Outpatient (CLI) | payer MEDICARE, OTHER, SELFPAY ==
--- NOTE | 2018-02-11 09:32 | ECHOD_ITS ---
Reason For Study: malignant neoplasm of right and left breast, EF evalualtion prior to chem. Procedure This was a 2D Doppler, Color Flow transthoracic echocardiogram. Exam performed in department. Left Ventricle Normal LV size. Left ventricular systolic function is normal. The estimated ejection fraction is 60 %. Transmitral and pulmonary venous doppler flow suggestive of elevated left atrial pressure. Transmitral diastolic flow velocities suggest mild (stage 1) diastolic dysfunction (reversed pattern). No regional wall motion abnormalities noted. Right Ventricle Normal RV size. Normal systolic function. Atria Normal left atrium. Normal right atrium. Mitral Valve Normal mitral valve. Tricuspid Valve Normal tricuspid valve. Aortic Valve Normal aortic valve. Pulmonic Valve Normal pulmonic valve. Great Vessels Normal aortic root. The pulmonary artery is normal size. Inferior vena cava collapse with respiration. Pericardium/Pleural No pericardial effusion. MMode/2D Measurements & Calculations LVIDd: 4.3 cm IVSd: 1.2 cm Ao root diam: 3.1 cm LVIDs: 3.0 cm LVPWd: 1.1 cm LA dimension: 4.0 cm RVDd: 3.1 cm FS: 30.4 % LAV(MOD-bp): 62.2 ml EDV(MOD-sp4): 80.3 ml EDV(MOD-sp2): 71.0 ml LAV(MOD-bp) Indexed: 30.2 ml/m2 ESV(MOD-sp4): 37.0 ml EF(MOD-sp2): 60.9 % LAV(MOD-sp2): 58.3 ml EF(MOD-sp4): 53.9 % LAV(MOD-sp4): 57.4 ml SV(MOD-sp4): 43.2 ml SV(MOD-sp2): 43.3 ml LA A4 area: 20.7 cm2 RA A4 area: 17.0 cm2 Time Measurements MV dec time: 0.21 sec Doppler Measurements & Calculations MV E max lc: 101.2 cm/sec Lat Peak E' Lc: 10.5 cm/sec Med Peak E' Lc: 13.5 cm/sec MV A max lc: 81.1 cm/sec E/E' lat: 9.7 E/E' med: 7.5 MV E/A: 1.2 Ao V2 max: 133.2 cm/sec LV V1 max: 94.8 cm/sec PA V2 max: 87.9 cm/sec Ao max P.1 mmHg LV V1 max P.6 mmHg TR max lc: 278.7 cm/sec TR max P.2 mmHg Interpretation Summary Normal LV size. Left ventricular systolic function is normal. The estimated ejection fraction is 60 %. Transmitral and pulmonary venous doppler flow suggestive of elevated left atrial pressure. Transmitral diastolic flow velocities suggest mild (stage 1) diastolic dysfunction (reversed pattern). Ordering Physician: Jessica Ochoa Referring Physician: Jb Cast Performed By: Mary Lou Fuchs RDCS, RVT
== END ==
PROVIDERS: Family Provider Family Medicine; PCP Family Medicine; Visit Provider Internal Medicine Hematology & Oncology
DX: Z01.818 Encounter for other preprocedural examination (principal); C50.911 Malignant neoplasm of unspecified site of right female breast; C50.912 Malignant neoplasm of unspecified site of left female breast; N64.89 Other specified disorders of breast
CPT/HCPCS: 87070; 87075; 87205; 93306

== ENCOUNTER → 2018-02-11 18:33 | Outpatient (CLI) | payer MEDICARE, OTHER, SELFPAY | PROVIDERS: Family Provider Family Medicine; Visit Provider Physician Assistant | DX: N64.89 Other specified disorders of breast (principal) | CPT/HCPCS: 87070; 87075; 87205 ==

== ENCOUNTER 2018-03-11 05:43 | Day surgery (SDC) | payer MEDICARE, OTHER, SELFPAY ==
[2018-03-11] VITALS (8 sets, daily range): BP systolic 107–154; BP diastolic 65–71; PULSE 53–58; RESP 16–18; TEMP 36.2–36.7; O2SAT 91–97; BMI 38.4
[2018-03-11 06:29] LABS: BUN 10 mg/dL (7-18); Calcium,Total 8.8 mg/dL (8.5-10.1); Chloride 106 mmol/L (98-107); Creatinine, Serum 0.72 mg/dL (0.55-1.02); EST Glomerular Filtration Rate 85 mL/min (>60); Est Glom Filt Rate - Afr Amer 103 mL/min (>60); Glucose 162 mg/dL (74-106); Potassium 3.7 mmol/L (3.5-5.1); Sodium Level 141 mmol/L (136-145)
[2018-03-11 06:30] LABS: Anion Gap 6 (5-15)
[2018-03-11 06:31] LABS: Hematocrit 41.8 % (37-47); Hemoglobin 13.1 g/dl (12.0-15.0); Mean Corp Hgb Conc 31.3 g/gl (32-36); Mean Corpuscular Hgb 28.1 pg (27.0-32.0); Mean Corpuscular Volume 89.5 fL (81-99); Mean Platelet Vol. 9.8 fl (6.2-12.0); Platelet Count 326 K/mm3 (150-450); RBC Distribution Width CV 13.7 % (11.6-14.6); RBC Distribution Width SD 44.4 fl (35.1-43.9); Red Blood Count 4.67 M/mm3 (4.2-5.4); White Blood Count 7.5 K/mm3 (4.4-11.0)
[2018-03-11 06:33] LABS: Scan Indicated on CBC? Y/N NO
--- NOTE | 2018-03-11 07:04 | RAD_ITS ---
STUDY: X-RAY CHEST REASON FOR EXAM: Female, 72 years old. Left-sided port placement. TECHNIQUE: Single AP portable view of the chest. COMPARISON: Comparison is made with prior study dated January 08, 2018. FINDINGS: A left-sided Port-A-Cath has been placed. The tip is at the junction of the left brachiocephalic vein and superior vena cava. The lungs are clear and expanded. There is no demonstrated pleural abnormality. There is moderate cardiac enlargement. Normal mediastinum and miryam. Normal visualized pulmonary arteries. Normal visualized aortic arch and descending thoracic aorta. There are diffuse degenerative changes of the visualized thoracic spine. Normal visualized ribs, clavicles, and shoulders. There is no demonstrated abnormality of the visualized soft tissue structures of the upper abdomen. RAD/CXR for Line Placement IMPRESSION: A left-sided portacatheter is seen. The tip is at the junction of the left brachiocephalic vein and superior vena cava. Electronically Signed: Gabriel Tabor MD at 9:48 EDT Tel [phone], Service support ,
--- NOTE | 2018-03-11 07:04 | PCM.DC.GS ---
Discharge Diet: Light diet - advance as tolerated - if you have questions about your diet instructions, please talk to you doctor. Discharge Activity: May Not Drive - for 1 week or while taking narcotic pain medicine. May shower in (days): 1 Lifting Restrictions: 10 pounds Call your doctor if your incision/area has: Continuous Slow Oozing, Sudden Increased Bleeding, Increased Pain/ Swelling, Increased Redness, Foul Smelling Discharge Call your doctor if you observe: Fever of 101 or Higher Suture Line Care: Avoid Pulling/Pushing, Avoid Pinching/Bending Additional Dressing/Incision Instructions:: Change or remove dressing in 3 days. Leave steri-strips in place for 1 week. Allergies/Adverse Reactions: Allergies povidone-iodine [From Betadine] Adverse Reaction (Severe, Verified 03/08/18 11:03) Itching pravastatin sodium [From Pravachol] Adverse Reaction (Severe, Verified 03/08/18 11:03) LEG CRAMPS rosuvastatin calcium [From Crestor] Adverse Reaction (Severe, Verified 03/08/18 11:03) LEG CRAMPS simvastatin Adverse Reaction (Severe, Verified 03/08/18 11:03) LEG CRAMPS soap [From Betadine] Adverse Reaction (Severe, Verified 03/08/18 11:03) Itching Medications to take at Discharge Atorvastatin Calcium [Lipitor] 10 mg PO QHS 05/26/15 Ergocalciferol [Vitamin D] 50,000 unit PO MOTH 05/26/15 Hydrochlorothiazide [Hctz] 25 mg PO DAILY 05/26/15 Nitroglycerin [Nitrostat] 0.4 mg SUBLINGUAL Q5M PRN 05/26/15 Ramipril [Altace] 2.5 mg PO DAILY 05/26/15 Aspirin [Aspirin, Baby] 81 mg PO DAILY@0800 #1 06/10/15 Atenolol [Tenormin (beta leonard)] 50 mg PO DAILY 11/23/15 Ibandronate Sodium [Boniva] 150 mg PO Q30D 11/23/15 Metformin HCl [Glucophage] 500 mg PO BIDCM 11/23/15 silver sulfadiazine 1 % topical cream 1 applic TOPICAL BID #25 g 02/04/18 potassium chloride ER 10 mEq tablet,extended release 20 meq PO BID #360 tab 02/11/18 isosorbide mononitrate ER 30 mg tablet,extended release 24 hr 30 mg PO DAILY #90 tab 03/07/18 Primary Care Physician: Jb Cast MD [Primary Care Provider] - Please Follow Up With: Alexandre Otto MD - [phone] When: Call to make an appointment to be seen in about 10 days.
[2018-03-11 07:06] LABS: Bedside Glucose 175 mg/dL (70-110)
[2018-03-11] MEDS: Cefazolin 2 GM in 0.9% Normal Saline 100 ML IV (07:08)
[2018-03-11] MEDS: Bupivacaine Mpf 0.5% 30 ML VIAL (07:31)
--- NOTE | 2018-03-11 08:27 | PCM.OPRPT ---
Problem List (1) Bilateral malignant neoplasm of breast in female Status: Acute Qualifiers: Breast location: unspecified site of breast Estrogen receptor status: unspecified Qualified Code(s): C50.911 - Malignant neoplasm of unspecified site of right female breast; C50.912 - Malignant neoplasm of unspecified site of left female breast Report of Operation Date of Procedure: 03/11/18 Pre-Operative Diagnosis: Bilateral breast cancer Post-Operative Diagnosis: Same Surgery/Procedure Performed:: left internal jugular 6 Romanian PowerPort placement Description of Surgical Findings:: Timeout and informed consent was obtained. 72-year-old female was taken out from placement table underwent monitored care local anesthetic Ancef 2 g given the left neck and chest were sterilely prepped draped with ChloraPrep under ultrasound guidance 1% lidocaine mixed 50-50 with 0.5% Marcaine was used as a local anesthetic a total of 25 cc was used. Under ultrasound guidance a micropuncture needle was inserted and left internal jugular vein by Seldinger wire advancement local was instilled down upon the left chest wall rather high left chest wall to stay away from this mastectomy site transverse incision was created and electrocautery was used to make a subtenons pocket. The tubing was tunneled from the chest of the neck. Then the 035 J-wire was inserted through the sheath however the sheath dilator could not be advanced several maneuvers and additionally using 035 angled Glidewire was attempted then I switched out to an 035 Magic wire and was able to advance the sheath dilator over that the dilator and wire removed the catheter was advanced to the sheath the sheath was split the catheter was positioned at the SVC atrial junction the tubing was connected the port secured the port attachment device port was placed in the pocket and secured there with 2-0 silk skin edges proximate interrupted 4 Monocryl subdermal stitches Steri-Strips Telfa and OpSite dressings applied the port was accessed it aspirated easily was flushed with saline and 2 cc of heparinized saline sponge instrument and needle counts were reported to the surgeon for correct blood loss was minimal specimens none. Drains none. She was taken to the recovery room where stat portable chest x-ray is pending Alexandre Otto M.D., F.A.C.S.
--- NOTE | 2018-03-11 10:21 | RAD_ITS ---
STUDY: X-RAY CHEST REASON FOR EXAM: Female, 72 years old. Post line placement. TECHNIQUE: Single AP portable view of the chest. COMPARISON: Comparison is made with prior examination done earlier in the day. FINDINGS: A left-sided portacatheter has been placed. The tip is in the midportion of the superior vena cava. The lungs are clear and expanded. There is no demonstrated pleural abnormality. There is mild cardiac enlargement. Normal mediastinum and miryam. Normal visualized pulmonary arteries. Normal visualized aortic arch and descending thoracic aorta. Normal visualized thoracic spine. Normal visualized ribs, clavicles, and shoulders. There is no demonstrated abnormality of the visualized soft tissue structures of the upper abdomen. RAD/Chest 1 View (Portable) IMPRESSION: The tip of the karyn catheter is in the midportion of the superior vena cava. Electronically Signed: Gabriel Tabro MD at 11:24 EDT Tel [phone], Service support ,
--- NOTE | 2018-03-11 11:20 | SUR.PHASEII ---
SECOND PORTABLE CHEST X-RAY DONE
== END 2018-03-11 11:50 | disposition home or self-care (01) ==
LOC: SDC 05:43 → AC 05:44
PROVIDERS: Anesthesiology; Family Provider Family Medicine; PCP Family Medicine; Visit Provider Surgery
PROC: (CPT 36561; principal; 2018-03-11 07:00)
DX: C50.911 Malignant neoplasm of unspecified site of right female breast (principal); C50.912 Malignant neoplasm of unspecified site of left female breast; Z17.0 Estrogen receptor positive status [ER+]; I25.10 Atherosclerotic heart disease of native coronary artery without angina pectoris; E11.9 Type 2 diabetes mellitus without complications; I10 Essential (primary) hypertension; E78.5 Hyperlipidemia, unspecified; G47.30 Sleep apnea, unspecified; Z79.84 Long term (current) use of oral hypoglycemic drugs; Z79.82 Long term (current) use of aspirin; Z79.899 Other long term (current) drug therapy; Z86.718 Personal history of other venous thrombosis and embolism; Z95.5 Presence of coronary angioplasty implant and graft
CPT/HCPCS: 36561; 76937; 36415; 71045; 77001; 80048; 82962; 85027; 87070; 87075; 87077; 87186; 87205; J7120; C1769; C1788; J2405

== ENCOUNTER → 2018-05-20 09:11 | Outpatient (CLI) | payer MEDICARE, OTHER, SELFPAY ==
[2018-05-20 10:28] LABS: AST(SGOT) 16 U/L (15-37); Alanine Aminotransfer ALT/SGPT 21 U/L (13-56); Albumin, Serum 3.4 g/dL (3.2-5.0); Alkaline Phosphatase 87 U/L (45-117); Bilirubin, Direct 0.15 mg/dL (0.00-0.30); Cholesterol 137 mg/dL (200); High Density Lipoprotein 39 mg/dL; Protein, Total 7.4 g/dL (6.4-8.2); Triglycerides 216 mg/dL; Very Low Density Lipoprotein 43 mg/dL (5-40)
== END ==
PROVIDERS: Family Provider Family Medicine; PCP Family Medicine; Visit Provider Physician Assistant Medical
DX: E78.5 Hyperlipidemia, unspecified (principal); Z79.899 Other long term (current) drug therapy
CPT/HCPCS: 36415; 80061; 80076

== ENCOUNTER → 2018-06-10 13:48 | Outpatient (CLI) | payer MEDICARE, OTHER, SELFPAY ==
--- NOTE | 2018-06-10 14:05 | ECHOD_ITS ---
Reason For Study: THERAPEUTIC DRUG LEVEL MONITORING Procedure This was a 2D Doppler, Color Flow transthoracic echocardiogram. Exam performed in department. Left Ventricle Normal LV size. Mild concentric left ventricular hypertrophy. Left ventricular systolic function is normal. The estimated ejection fraction is 65 %. Transmitral diastolic flow velocities suggest mild (stage 1) diastolic dysfunction (reversed pattern). No regional wall motion abnormalities noted. Right Ventricle Normal RV size. Normal systolic function. Atria Normal left atrium. Normal right atrium. Mitral Valve Normal mitral valve. Tricuspid Valve Normal tricuspid valve. Mild (1+) tricuspid valve insufficiency. Pulmonary artery systolic pressure is 38 mmHg. Aortic Valve Normal aortic valve. Trisinus/trileaflet aortic valve. Pulmonic Valve Normal pulmonic valve. Great Vessels Normal aortic root. The pulmonary artery is normal size. Normal inferior vena cava. Pericardium/Pleural No pericardial effusion. MMode/2D Measurements & Calculations LVIDd: 3.9 cm IVSd: 1.2 cm Ao root diam: 3.4 cm LVIDs: 2.1 cm LVPWd: 1.3 cm LA dimension: 4.0 cm RVDd: 2.9 cm FS: 44.8 % LAV(MOD-bp): 55.5 ml LVAd ap4: 29.7 cm2 SV(MOD-sp4): 55.5 ml LAV(MOD-bp) Indexed: 27.1 ml/m2 EDV(MOD-sp4): 93.8 ml LAV(MOD-sp2): 49.5 ml EDV(sp4-el): 97.1 ml LAV(MOD-sp4): 53.9 ml LVAs ap4: 17.0 cm2 ESV(MOD-sp4): 38.3 ml ESV(sp4-el): 38.6 ml EF(MOD-sp4): 59.1 % EF(sp4-el): 60.2 % SV(sp4-el): 58.4 ml LA A4 area: 19.5 cm2 RA A4 area: 15.7 cm2 Time Measurements MV dec time: 0.25 sec Doppler Measurements & Calculations MV E max lc: 76.1 cm/sec Lat Peak E' Lc: 8.1 cm/sec Med Peak E' Lc: 5.4 cm/sec MV A max lc: 99.3 cm/sec E/E' lat: 9.3 E/E' med: 14.2 MV E/A: 0.77 Ao V2 max: 191.0 cm/sec AI max lc: 347.7 cm/sec LV V1 max: 133.4 cm/sec Ao max P.6 mmHg AI max P.4 mmHg LV V1 max P.1 mmHg AI dec slope: 159.5 cm/sec2 AI P1/2t: 638.6 msec PA V2 max: 130.0 cm/sec TR max lc: 285.4 cm/sec TR max P.6 mmHg Interpretation Summary Normal LV size. Mild concentric left ventricular hypertrophy. Left ventricular systolic function is normal. The estimated ejection fraction is 65 %. Transmitral diastolic flow velocities suggest mild (stage 1) diastolic dysfunction (reversed pattern). Global longitudinal strain of 19.-- Normal Ordering Physician: Xiomara Ramirez Referring Physician: THOMAS GOLDSTEIN Performed By: Mel Patterson RDCS
== END ==
PROVIDERS: Family Provider Family Medicine; PCP Family Medicine; Visit Provider Nurse Practitioner Family
DX: Z79.899 Other long term (current) drug therapy (principal)
CPT/HCPCS: 93306

== ENCOUNTER → 2018-07-23 13:27 | Outpatient (CLI) | payer MEDICARE, OTHER, SELFPAY | PROVIDERS: Family Provider Family Medicine; PCP Family Medicine; Visit Provider Internal Medicine Hematology & Oncology | DX: C50.911 Malignant neoplasm of unspecified site of right female breast (principal); C50.912 Malignant neoplasm of unspecified site of left female breast; Z78.0 Asymptomatic menopausal state; Z79.899 Other long term (current) drug therapy | CPT/HCPCS: 77080 ==

== ENCOUNTER 2018-08-18 08:48 | Emergency (ER) | payer MEDICARE, OTHER, SELFPAY ==
[2018-08-18 08:48] VITALS: BP 198/87; PULSE 72; RESP 18; TEMP 36.6; O2SAT 96; BMI 34.8
--- NOTE | 2018-08-18 09:07 | ED.DCSUM_ITS ---
- ER Visit Summary Date of Service: 08/18/18 Chief Complaint: Stiff neck History of Present Illness: The patient is a 72 F with a stiff neck for the past couple days. She denies any new injury. She has not had cough or congestion. Patient did start a new medication for breast cancer possibly 3 weeks ago. She is concerned about this being a side effect of the medication as arthritis and bone pain is listed as a side effect. She took a single dose of Aleve yesterday without significant improvement. Patient does not have pain radiating into her arms. She does not have paresthesias. She describes a sensation of a full feeling in the back of her head. Physical Examination: Blood pressure is 198/87, temperature 98, heart rate 72, respiratory rate 18, pulse ox 96% on room air. Head neck examination reveals no external sign of trauma. She has no midline cervical tenderness. She has no meningismus. She does have bilateral cervical paraspinal tenderness, right greater than left. She does have reproducible pain with turning her head. Heart is regular rate and rhythm. Lung sounds are clear. Port is noted in the left upper chest. Abdomen is soft nontender. Neuro exam reveals good strength and sensation throughout. Strong radial pulses are noted bilaterally and equal. Test Results: [] Emergency Department Course and Treatment: Patient is given a dose of Naprosyn and 2 mg of p.o. Valium as a muscle relaxer. I did speak with Dr. Summers. He suggested a C-spine x-ray to ensure no evidence of bony metastasis. C-spine x- ray shows no acute osseous abnormality. There is mild narrowing of the disc spaces. He advised the patient could hold her medication tonight and come see him in the clinic tomorrow to discuss this. This was discussed with the patient she is in agreement. Treatment Plan: [] Disposition: Discharge Impression: Cervical muscle spasm This note was generated with [employer] dictation software. It may contain incorrect words, spelling, and punctuation that were not noted in review of the chart prior to signing ED Disposition - Plan for ED Patient: Chief Complaint: Other, Pain/Inj Referrals: Jb Cast MD [Primary Care Provider] -
--- NOTE | 2018-08-18 09:48 | RAD_ITS ---
STUDY: X-RAY - CERVICAL SPINE REASON FOR EXAM: Female, 72 years old. Right neck and head pain x4 days. No trauma. TECHNIQUE: 3 view(s) of the cervical spine were obtained. COMPARISON: None FINDINGS: Degenerative narrowing of the predental space. Normal odontoid process. Normal cervical lordosis. Normal vertebral bodies and endplates. Mild disc space height narrowing at C4-C5, C5-C6, C6-C7 and C7-T1 disc space levels. The soft tissue structures are unremarkable. RAD/Cerv Spine 2 or 3 Views IMPRESSION: 1. No acute osseous abnormality of the cervical spine. 2. Mild narrowing of the disc space heights at C4-C5 down to C7-T1 disc space levels. 3. Left IJ approach Ftkg-G-Beiytevs tip is in the SVC. Electronically Signed: Allen Martinez MD at 10:27 EDT , Service support ,
[2018-08-18] MEDS: diazePAM 2 MG Tablet PO (09:52)
[2018-08-18] MEDS: Naproxen 500 MG Tablet PO (09:52)
--- NOTE | 2018-08-18 10:38 | ED.DEP ---
ED Disposition - Plan for ED Patient: Disposition: Home or Assisted Living Chief Complaint: Other, Pain/Inj Instructions: ED Spasm Neck No Injury Prescriptions: Diazepam [Valium] 2 mg PO TID PRN PRN #10 tablet PRN Reason: Spasms Referrals: Jessica Ochoa MD [STAFF PHYSICIAN] - 1 Day
[2018-08-18 11:13] VITALS: BP 95/66; PULSE 58; RESP 18; O2SAT 92
== END 2018-08-18 11:14 | disposition home or self-care (01) ==
PROVIDERS: Emergency Provider Emergency Medicine; Family Provider Family Medicine; PCP Family Medicine
DX: M62.838 Other muscle spasm (principal); M54.2 Cervicalgia; E11.9 Type 2 diabetes mellitus without complications; I10 Essential (primary) hypertension; Z79.84 Long term (current) use of oral hypoglycemic drugs; Z79.82 Long term (current) use of aspirin; Z79.899 Other long term (current) drug therapy; Z86.718 Personal history of other venous thrombosis and embolism; Z85.3 Personal history of malignant neoplasm of breast; Z90.13 Acquired absence of bilateral breasts and nipples
CPT/HCPCS: 72040; 99283

== ENCOUNTER → 2018-09-11 12:41 | Outpatient (CLI) | payer MEDICARE, OTHER, SELFPAY ==
--- NOTE | 2018-09-11 12:44 | ECHOLONC_ITS ---
Reason For Study: BREAST CANCER Procedure This was a limited 2D transthoracic echocardiogram. Myocardial strain analysis was performed in this exam to aid in the assessment of cardiac function. Exam performed in department. Left Ventricle Normal left ventricle. Left ventricular systolic function is normal. The estimated ejection fraction is 60 %. The global longitudinal strain = -16.6% (abnormal). No regional wall motion abnormalities noted. Mitral Valve Normal mitral valve. Tricuspid Valve Normal tricuspid valve. Pericardium/Pleural No pericardial effusion. MMode/2D Measurements & Calculations LVIDd: 4.4 cm IVSd: 1.0 cm LVAd ap4: 29.7 cm2 LVIDs: 2.8 cm LVPWd: 0.97 cm EDV(MOD-sp4): 93.9 ml FS: 36.3 % EDV(sp4-el): 98.8 ml LVAs ap4: 17.9 cm2 ESV(MOD-sp4): 40.5 ml ESV(sp4-el): 41.9 ml EF(MOD-sp4): 56.9 % EF(sp4-el): 57.5 % SV(MOD-sp4): 53.4 ml SV(sp4-el): 56.9 ml Interpretation Summary Normal left ventricle. Left ventricular systolic function is normal. The estimated ejection fraction is 60 %. The global longitudinal strain = -16.6% (borderline). Ordering Physician: Jessica Ochoa Referring Physician: THOMAS ALVA Performed By: Archer, Mel, RDCS
== END ==
PROVIDERS: Family Provider Family Medicine; PCP Family Medicine; Referring Provider Internal Medicine Hematology & Oncology; Visit Provider Internal Medicine Hematology & Oncology
DX: Z01.818 Encounter for other preprocedural examination (principal); C50.911 Malignant neoplasm of unspecified site of right female breast; C50.912 Malignant neoplasm of unspecified site of left female breast; Z79.899 Other long term (current) drug therapy
CPT/HCPCS: 0399T; 93308

== ENCOUNTER → 2018-12-02 13:52 | Outpatient (CLI) | payer MEDICARE, OTHER, SELFPAY ==
[2018-11-20 09:34] VITALS: BMI 37.1
--- NOTE | 2018-12-02 14:09 | ECHODONC_ITS ---
Reason For Study: HIGH RISK MEDS Procedure This was a 2D Doppler, Color Flow transthoracic echocardiogram. Myocardial strain analysis was performed in this exam to aid in the assessment of cardiac function. Exam performed portable in patient room. Left Ventricle Normal LV size. Left ventricular systolic function is normal. The estimated ejection fraction is 60 %. Stage 2 diastolic dysfunction. No regional wall motion abnormalities noted. Right Ventricle Normal RV size. Normal systolic function. Atria Normal left atrium. Normal right atrium. Mitral Valve Normal mitral valve. Tricuspid Valve Normal tricuspid valve. Mild (1+) tricuspid valve insufficiency. Pulmonary artery systolic pressure is 34 mmHg. Aortic Valve Trisinus/trileaflet aortic valve. Mild focal aortic valve thickening. Pulmonic Valve Normal pulmonic valve. Great Vessels Normal aortic root. The pulmonary artery is normal size. Normal inferior vena cava. Pericardium/Pleural No pericardial effusion. MMode/2D Measurements & Calculations LVIDd: 4.6 cm IVSd: 1.0 cm Ao root diam: 3.8 cm LVIDs: 3.1 cm LVPWd: 0.94 cm RVDd: 3.1 cm FS: 32.7 % LAV(MOD-bp): 55.8 ml EDV(MOD-sp4): 92.4 ml EDV(MOD-sp2): 84.8 ml LAV(MOD-bp) Indexed: 27.6 ml/m2 ESV(MOD-sp4): 39.9 ml EF(MOD-sp2): 66.3 % LAV(MOD-sp2): 55.6 ml EF(MOD-sp4): 56.8 % LAV(MOD-sp4): 55.3 ml SV(MOD-sp4): 52.5 ml SV(MOD-sp2): 56.2 ml LA A4 area: 20.3 cm2 LA dimension(2D): 4.7 cm RA A4 area: 16.3 cm2 Time Measurements MV dec time: 0.30 sec Doppler Measurements & Calculations MV E max lc: 94.1 cm/sec Lat Peak E' Lc: 8.7 cm/sec Med Peak E' Lc: 6.3 cm/sec MV A max lc: 74.4 cm/sec E/E' lat: 10.8 E/E' med: 15.0 MV E/A: 1.3 Ao V2 max: 169.4 cm/sec LV V1 max: 112.2 cm/sec PA V2 max: 116.6 cm/sec Ao max P.5 mmHg LV V1 max P.0 mmHg PI end-d lc: 97.7 cm/sec TR max lc: 271.1 cm/sec TR max P.5 mmHg Interpretation Summary Normal LV size. Left ventricular systolic function is normal. The estimated ejection fraction is 60 %. Stage 2 diastolic dysfunction. Mild (1+) tricuspid valve insufficiency. The global longitudinal strain is normal. The global longitudinal strain = -17.7 % (normal). Ordering Physician: Xiomara Ramirez Referring Physician: THOMAS ALVA Performed By: Heidi Matos, VI, RVT
== END ==
PROVIDERS: Family Provider Family Medicine; PCP Family Medicine; Referring Provider Nurse Practitioner Family; Visit Provider Nurse Practitioner Family
DX: Z51.81 Encounter for therapeutic drug level monitoring (principal); Z79.899 Other long term (current) drug therapy
CPT/HCPCS: 0399T; 93306

== ENCOUNTER → 2018-12-10 09:08 | Outpatient (CLI) | payer MEDICARE, OTHER, SELFPAY ==
[2018-11-20 09:34] VITALS: BMI 37.1
[2018-12-10 10:23] LABS: AST(SGOT) 11 U/L (15-37); Alanine Aminotransfer ALT/SGPT 20 U/L (13-56); Albumin, Serum 3.9 g/dL (3.2-5.0); Alkaline Phosphatase 88 U/L (45-117); Bilirubin, Direct 0.23 mg/dL (0.00-0.30); Cholesterol 159 mg/dL (200); Globulin 3.9 g/dL (2.2-4.2); High Density Lipoprotein 51 mg/dL; Protein, Total 7.8 g/dL (6.4-8.2); Triglycerides 171 mg/dL; Very Low Density Lipoprotein 34 mg/dL (5-40)
== END ==
PROVIDERS: Family Provider Family Medicine; PCP Family Medicine; Referring Provider Physician Assistant Medical; Visit Provider Physician Assistant Medical
DX: E78.5 Hyperlipidemia, unspecified (principal)
CPT/HCPCS: 36415; 80061; 80076

== ENCOUNTER → 2019-02-12 11:57 | Outpatient (CLI) | payer MEDICARE, OTHER, SELFPAY ==
[2019-02-12 09:07] VITALS: BMI 37.5
--- NOTE | 2019-02-12 12:00 | RAD_ITS ---
STUDY: X-RAY - PELVIS AND RIGHT HIP REASON FOR EXAM: Female, 73 years old. Right hip pain. Currently undergoing treatment for breast cancer. TECHNIQUE: 3 views of the pelvis and hip. COMPARISON: None. FINDINGS: There is a non-specific bowel gas pattern. Normal visualized soft tissue structures. There are multilevel degenerative changes of the visualized lumbar spine. Probable post laminectomy defect at L4. There are cortical enthesophytes at the lateral margins of the bilateral iliac wings. Normal bilateral sacroiliac joints and visualized sacrum. Normal bilateral superior and inferior pubic rami. There are mild degenerative changes of the pubic symphysis with some articular narrowing and sclerosis. Normal bilateral ischial tuberosities. Normal visualized femoral head. There is early osteoarthritic spur formation of the acetabular rim. Normal hip joint. There is no demonstrated osseous structure lesion or acute fracture. RAD/HIP, UNI W/ Pelvis 2-3 Views IMPRESSION: Degenerative changes of the spine and pelvis, as noted. No demonstrated osseous destructive lesion or fracture. Electronically Signed: Oscar Molina MD at 16:07 EDT , Service support ,
== END ==
PROVIDERS: Family Provider Family Medicine; PCP Family Medicine; Referring Provider Nurse Practitioner Family; Visit Provider Nurse Practitioner Family
DX: M25.551 Pain in right hip (principal); C50.911 Malignant neoplasm of unspecified site of right female breast
CPT/HCPCS: 36591; 73502; 80053; 85025; 96413; J7050; J9355; A4216

== ENCOUNTER → 2019-03-03 07:45 | Outpatient (CLI) | payer MEDICARE, OTHER, SELFPAY ==
[2018-11-20 09:34] VITALS: BMI 37.1
[2019-02-12 09:07] VITALS: BMI 37.5
--- NOTE | 2019-03-03 07:48 | ECHOCSONC_ITS ---
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 Procedure This was a 2D Doppler, Color Flow transthoracic echocardiogram. Myocardial strain analysis was performed in this exam to aid in the assessment of cardiac function. Exam performed in department. Left Ventricle Normal LV size. Left ventricular systolic function is normal. The estimated ejection fraction is 60 %. Stage 2 diastolic dysfunction. No regional wall motion abnormalities noted. Right Ventricle Normal RV size. Normal systolic function. Atria The left atrium is mildly enlarged. Normal right atrium. Mitral Valve Normal mitral valve. Trivial eccentric mitral valve insufficiency. Tricuspid Valve Normal tricuspid valve. Mild (1+) tricuspid valve insufficiency. Pulmonary artery systolic pressure is 37 mmHg. Aortic Valve Normal aortic valve. Pulmonic Valve Normal pulmonic valve. Great Vessels Normal aortic root. The pulmonary artery is normal size. Normal inferior vena cava. Pericardium/Pleural No pericardial effusion. MMode/2D Measurements & Calculations LVIDd: 4.9 cm IVSd: 1.2 cm Ao root diam: 3.6 cm LVIDs: 3.3 cm LVPWd: 1.1 cm RVDd: 3.5 cm FS: 31.6 % LAV(MOD-bp): 72.0 ml LA A4 area: 21.5 cm2 LA dimension(2D): 4.3 cm LAV(MOD-bp) Indexed: 35.6 ml/m2 LAV(MOD-sp2): 68.4 ml LAV(MOD-sp4): 68.7 ml RA A4 area: 18.4 cm2 Time Measurements MV dec time: 0.27 sec Doppler Measurements & Calculations MV E max lc: 95.8 cm/sec Lat Peak E' Lc: 8.8 cm/sec Med Peak E' Lc: 6.4 cm/sec MV A max lc: 80.1 cm/sec E/E' lat: 10.9 E/E' med: 15.1 MV E/A: 1.2 Ao V2 max: 170.8 cm/sec LV V1 max: 105.2 cm/sec PA V2 max: 101.2 cm/sec Ao max P.7 mmHg LV V1 max P.4 mmHg PI dec slope: 146.1 cm/sec2 TR max lc: 285.6 cm/sec TR max P.7 mmHg Interpretation Summary Normal LV size. Left ventricular systolic function is normal. The estimated ejection fraction is 60 %. Stage 2 diastolic dysfunction. Mild (1+) tricuspid valve insufficiency. The global longitudinal strain is normal. The global longitudinal strain = -19.1 % (normal). Ordering Physician: Xiomara Ramirez Referring Physician: Xiomara Ramirez Performed By: Mary Lou Fuchs RDCS, RVT
== END ==
PROVIDERS: Family Provider Family Medicine; PCP Family Medicine; Referring Provider Nurse Practitioner Family; Visit Provider Nurse Practitioner Family
DX: Z51.81 Encounter for therapeutic drug level monitoring (principal); Z79.899 Other long term (current) drug therapy
CPT/HCPCS: 0399T; 93306; C8929

== ENCOUNTER 2019-07-23 08:56 | Inpatient (IN) | payer MEDICARE, OTHER, SELFPAY ==
[2019-06-25 11:33] VITALS: BMI 37.1
[2019-07-23 08:57] VITALS: BP 133/97; PULSE 60; RESP 11; TEMP 36.8; O2SAT 95; BMI 41.7
--- NOTE | 2019-07-23 09:28 | ED.DCSUM_ITS ---
History of Present Illness Chief Complaint: Lower Extremity Injury Narrative: 73-year-old female presents with right hip pain. She suffered a mechanical fall on her porch landing directly on her right hip. She did not lose consciousness or hit her head. She denies any other injuries other than her right hip. She was unable to bear weight afterwards. The pain is currently moderate in severity. Past Medical History - Allergies and Home Meds Allergies/Adverse Reactions: Allergies iodine Allergy (Severe, Verified 07/23/19 11:57) Rash povidone-iodine [From Betadine] Adverse Reaction (Severe, Verified 07/23/19 11:57) Itching pravastatin sodium [From Pravachol] Adverse Reaction (Severe, Verified 07/23/19 11:57) LEG CRAMPS rosuvastatin calcium [From Crestor] Adverse Reaction (Severe, Verified 07/23/19 11:57) LEG CRAMPS simvastatin Adverse Reaction (Severe, Verified 07/23/19 11:57) LEG CRAMPS soap [From Betadine] Adverse Reaction (Severe, Verified 07/23/19 11:57) Itching Surgical History: angioplasty Smoking Status: Never smoker - Family History Paternal Family History: Family History (Last Reviewed 06/25/19 @ 11:32 by Lety Larsen) Sister Pancreatic cancer Diabetes Heart disease Breast cancer Hypertension Leukemia Brother Diabetes Bone cancer Heart disease Hypertension CVA (cerebral vascular accident) Leukemia Mother Ovarian cancer Father Heart disease Family History: Reports: No pertinent history Additional Family History: As above Maternal Family History: Family History (Last Reviewed 06/25/19 @ 11:32 by Lety Larsen) Sister Pancreatic cancer Diabetes Heart disease Breast cancer Hypertension Leukemia Brother Diabetes Bone cancer Heart disease Hypertension CVA (cerebral vascular accident) Leukemia Mother Ovarian cancer Father Heart disease Family History: Reports: No pertinent history Sibling Family History: Family History (Last Reviewed 06/25/19 @ 11:32 by Lety Larsen) Sister Pancreatic cancer Diabetes Heart disease Breast cancer Hypertension Leukemia Brother Diabetes Bone cancer Heart disease Hypertension CVA (cerebral vascular accident) Leukemia Mother Ovarian cancer Father Heart disease Family History: Reports: No pertinent history Additional Family History: As above Review of Systems General: Denies: Chills, Fever, Sweats Eyes: Denies: Visual changes - bilaterally, Diplopia ENT: Denies: Rhinorrhea, Sore throat Cardiovascular: Denies: Chest pain, Palpitations Respiratory: Denies: Dyspnea, Cough, Dyspnea on exertion Gastrointestinal: Denies: Abdominal pain, Nausea, Vomiting, Diarrhea, Melena, Hematochezia Genitourinary: Denies: Dysuria, Hematuria, Frequency Musculoskeletal: Reports: Extremity Pain. Denies: Back pain Skin: Denies: Rash, Wounds Neurological: Denies: Headache, Weakness, Numbness Physical Exam Vital Signs/Narrative: Vital Signs Temp Pulse Resp BP Pulse Ox 07/23/19 08:57 98.3 F 60 11 L 133/97 H 95 General: Well nourished, Well developed, No Acute Distress Head: Normocephalic, Atraumatic Eyes: Perrl, EOMI ENT: Moist mucous membranes, No rhinorrhea Neck: Supple, Nontender Cardiovascular: Regular rate, Regular rhythm, No murmurs Respiratory: No distress, CTA bilaterally, Chest nontender Abdomen: Soft, Nontender, Nondistended, Normal bowel sounds Back: Nontender, Normal Inspection Extremities: No edema, Tenderness - right hip laterally Skin: Normal color, No rash Neurological: Alert, Oriented x3, Cranial nerves II-XII grossly intact, Normal Strength, Normal Sensation Psychological: Normal affect, Normal Mood Diagnostic/Tx/Re-eval - Medical Decision Making Initial right hip plain film was somewhat equivocal. Questionable avulsion fracture at the greater trochanter. Subsequent CT scan confirmed this fracture. No apparent extension into the intertrochanteric space. I discussed the case with Dr. Piedra who recommended an MRI. She will be admitted medically because she is unable to bear weight. Dr. Piedra will check MRI results. ED Disposition - Plan for ED Patient: Disposition: Acute Care Hospital [facility] Diagnosis: Fracture of hip, right, closed
--- NOTE | 2019-07-23 09:33 | RAD_ITS ---
STUDY: X-RAY - PELVIS AND RIGHT HIP REASON FOR EXAM: Female, 73 years old. Right hip pain following a fall. TECHNIQUE: 3 views of the pelvis and hip. COMPARISON: None. FINDINGS: There is a non-specific bowel gas pattern. There are multiple calcified phleboliths. There is narrowing with cortical sclerosis and osteophyte formation of the sacroiliac joint consistent with degenerative osteoarthritic changes. Normal bilateral superior and inferior pubic rami. There are degenerative changes of the pubic symphysis with articular narrowing and sclerosis. Normal bilateral ischial tuberosities. I suspect an avulsion fracture of the greater trochanter of the proximal right femur. There is mild articular joint space narrowing of the hip. RAD/HIP, UNI W/ Pelvis 2-3 Views IMPRESSION: Findings suggestive of a nondisplaced avulsion fracture of the right greater trochanter. Electronically Signed: Gabriel Tabor, at 10:13 EDT , Service support ,
--- NOTE | 2019-07-23 09:43 | ED.RN ---
PUREWICK PLACED FOR PT COMFORT.
--- NOTE | 2019-07-23 10:21 | CT_ITS ---
STUDY: CT RIGHT FEMUR WITHOUT CONTRAST REASON FOR EXAM: Female, 73 years old. Right-sided hip pain following a recent fall. RADIATION DOSAGE (If Supplied By Facility): CTDIvol = ( 26.83 ) mGy, DLP = ( 719 ) mGycm TECHNIQUE: Transaxial CT imaging of the femur was performed. Sagittal and coronal images were reconstructed. Individualized dose optimization techniques were used for this CT. COMPARISON: Comparison is made with prior radiographs of the right hip done earlier in the day. FINDINGS: There is a nondisplaced comminuted avulsion fracture of the greater trochanter of the proximal right femur. This extends posteriorly. This does not involve the intertrochanteric region of the proximal right femur. Soft tissue swelling. CT/Extremity Lower without Contra IMPRESSION: Comminuted nondisplaced avulsion fracture of the greater trochanter of the proximal right femur as described. This does not extend into the intertrochanteric region. Electronically Signed: Gabriel Tabor, at 11:26 EDT , Service support ,
--- NOTE | 2019-07-23 11:43 | MRI_ITS ---
STUDY: MRI RIGHT HIP REASON FOR EXAM: Female, 73 years old. Fall. Right hip pain. Abnormal CT scan. TECHNIQUE: Standardized fat and water weighted pulse sequences were obtained in all 3 orthogonal planes. COMPARISON: CT scan from the same day. FINDINGS: Reidentified comminuted avulsed right greater trochanter fracture. No intertrochanteric extension. No proximal femoral extension. Femoral head intact. Proximal femoral shaft intact. No dislocation. No bone destruction. Moderate/severe tissue swelling at the right hip. Small-volume hip joint effusion. Bilateral hip labral degeneration without discrete tears. Right greater trochanteric bursitis. Mild bilateral hamstring tendinosis without tears. Mild right gluteus medius/minimus tendinosis with high-grade partial tear (axial images 18 through 23 series 2). Left gluteus medius/minimus tendons intact with minimal peritendinitis. Normal bilateral rectus femoris tendons. Normal bilateral iliopsoas tendons. Normal bilateral adductor tendons. No muscle atrophy. Visualized intra-abdominal/pelvic findings within normal limits. No solid, cystic or lipomatous soft tissue lesions. Normal bilateral neural vascular bundles. Visualized sacrum intact. Visualized pelvis intact. Visualized lower lumbar spine intact. Moderate pubic symphysis arthrosis. Mild bilateral hip arthrosis. Normal sacroiliac joints. Levoscoliosis. Mild lumbar spine arthrosis. MRI/Lower Ext Joint Only (Routine) IMPRESSION: Reidentified comminuted avulsed right greater trochanter fracture without additional extension High-grade partial-thickness right gluteus medius/minimus tendon tears Soft tissue swelling, greater trochanteric bursitis and hip joint effusion Osteoarthritic changes with labral degeneration Electronically Signed: Darin Madrid DO at 13:47 EDT Tel , Service support ,
--- NOTE | 2019-07-23 11:50 | NURSING ---
DR WANG MCNALLY
--- NOTE | 2019-07-23 11:57 | NURSING ---
MED SURG HIP FX, CAD, HX BREAST CA SEMENTI
--- NOTE | 2019-07-23 12:06 | CON.PCM_ITS ---
Reason for Consult Date of Consultation: 07/23/19 History of Present Illness: The patient is a 73 year old F [] Past Medical History Past Medical History (Chronic Problems): Chronic Problems (Last Reviewed 06/25/19 @ 11:32 by Lety Larsen) Atherosclerotic heart disease of [place] coronary artery without angina pectoris (Chronic) PTCA of the DX1 10/04; PCI/HOOD of CX and balloon angioplasty of AV groove diag 09/26/11; IVUS for stenting mid DX1 with fractured pre existing stent 03/12/12 Presence of stent in coronary artery (Chronic) PTCA of the DX1 10/04; PCI/HOOD of CX and balloon angioplasty of AV groove diag 09/26/11; IVUS for stenting mid DX1 with fractured pre existing stent 03/12/12 Bilateral malignant neoplasm of breast in female (Chronic) TP 53 (variant of uncertain significance) Murmur, cardiac (Chronic) HLD (hyperlipidemia) (Chronic) HTN (hypertension) (Chronic) Medical History: Medical History (Last Reviewed 06/25/19 @ 11:32 by Lety Larsen) Pulmonary hypertension (Acute) I27.20 Nonrheumatic tricuspid (valve) insufficiency (Acute) I36.1 Nonrheumatic mitral valve regurgitation (Acute) I34.0 Atherosclerotic heart disease of [place] coronary artery without angina pectoris (Chronic) I25.10 PTCA of the DX1 10/04; PCI/HOOD of CX and balloon angioplasty of AV groove diag 09/26/11; IVUS for stenting mid DX1 with fractured pre existing stent 03/12/12 Diabetes (Acute) E11.9 Chest pain (Acute) R07.9 Dyspnea (Acute) R06.00 Fatigue (Acute) R53.83 Murmur, cardiac (Chronic) R01.1 HLD (hyperlipidemia) (Chronic) E78.5 HTN (hypertension) (Chronic) I10 Heel spur M77.30 History of DVT (deep vein thrombosis) Z86.718 ZITA (obstructive sleep apnea) G47.33 PORT PLACEMENT Osteoarthritis M19.90 Allergies iodine Allergy (Severe, Verified 07/23/19 11:57) Rash povidone-iodine [From Betadine] Adverse Reaction (Severe, Verified 07/23/19 11:57) Itching pravastatin sodium [From Pravachol] Adverse Reaction (Severe, Verified 07/23/19 11:57) LEG CRAMPS rosuvastatin calcium [From Crestor] Adverse Reaction (Severe, Verified 07/23/19 11:57) LEG CRAMPS simvastatin Adverse Reaction (Severe, Verified 07/23/19 11:57) LEG CRAMPS soap [From Betadine] Adverse Reaction (Severe, Verified 07/23/19 11:57) Itching Home Medications: Ambulatory Orders Medication Instructions Recorded Ergocalciferol [Vitamin D] 50,000 unit PO MOTH 05/26/15 Nitroglycerin (INPATIENT USE) 0.4 mg SUBLINGUAL Q5M PRN 05/26/15 [Nitrostat] Aspirin [Aspirin, Baby] 81 mg PO DAILY@0800 #1 06/10/15 Ibandronate Sodium [Boniva] 150 mg PO Q30D 11/23/15 silver sulfadiazine 1 % topical 1 applic TOPICAL BID #25 g 02/04/18 cream Loperamide [Imodium] 2 mg PO Q4H PRN PRN 04/24/18 metformin 500 mg tablet 1,000 mg PO BIDCM tab 06/28/18 atenolol 50 mg tablet 50 mg PO DAILY #90 tab 07/01/18 atorvastatin 10 mg tablet 10 mg PO QHS #90 tab 07/01/18 hydrochlorothiazide 25 mg tablet 25 mg PO DAILY #90 tab 07/01/18 ramipril 2.5 mg capsule 2.5 mg PO DAILY #90 cap 07/01/18 Diazepam [Valium] 2 mg PO TID PRN PRN #10 tab 08/18/18 isosorbide mononitrate ER 30 mg 30 mg PO DAILY #90 tab 02/14/19 tablet,extended release 24 hr potassium chloride ER 10 mEq 20 meq PO BID #360 tab 02/14/19 tablet,extended release Anastrozole [Arimidex] 1 mg PO DAILY #90 tab 06/25/19 Surgical History: Surgical History (Last Reviewed 06/25/19 @ 11:32 by Lety Larsen) Presence of stent in coronary artery (Chronic) Z95.5 PTCA of the DX1 10/04; PCI/HOOD of CX and balloon angioplasty of AV groove diag 09/26/11; IVUS for stenting mid DX1 with fractured pre existing stent 03/12/12 Postsurgical percutaneous transluminal coronary angioplasty (PTCA) status Z98.61 PTCA of the DX1 10/04; PCI/HOOD of CX and balloon angioplasty of AV groove diag 09/26/11; IVUS for stenting mid DX1 with fractured pre existing stent 03/12/12 History of bilateral mastectomy Z90.13 History of carpal tunnel surgery Z98.890 History of cholecystectomy Z90.49 History of colonoscopy Z98.890 History of knee joint replacement Z96.659 History of right breast biopsy Z98.890 Surgical History: angioplasty Smoking Status: Never smoker - *Family History Paternal Family History: Family History (Last Reviewed 06/25/19 @ 11:32 by Lety Larsen) Sister Pancreatic cancer Diabetes Heart disease Breast cancer Hypertension Leukemia Brother Diabetes Bone cancer Heart disease Hypertension CVA (cerebral vascular accident) Leukemia Mother Ovarian cancer Father Heart disease History Items: No pertinent history Maternal Family History: Family History (Last Reviewed 06/25/19 @ 11:32 by Lety Larsen) Sister Pancreatic cancer Diabetes Heart disease Breast cancer Hypertension Leukemia Brother Diabetes Bone cancer Heart disease Hypertension CVA (cerebral vascular accident) Leukemia Mother Ovarian cancer Father Heart disease History Items: No pertinent history Sibling Family History: Family History (Last Reviewed 06/25/19 @ 11:32 by Lety Larsen) Sister Pancreatic cancer Diabetes Heart disease Breast cancer Hypertension Leukemia Brother Diabetes Bone cancer Heart disease Hypertension CVA (cerebral vascular accident) Leukemia Mother Ovarian cancer Father Heart disease History Items: No pertinent history - Physical Exam Vital Signs Temp Pulse Resp BP Pulse Ox 98.3 F 60 11 L 133/97 H 95 07/23/19 08:57 07/23/19 08:57 07/23/19 08:57 07/23/19 08:57 07/23/19 08:57 Oxygen Delivery Method Room Air Weight: 242 lb 15.19 oz Body Mass Index (BMI) 41.7 Finger Stick Blood Glucose 151 Assessment/Plan All Active Problems (Last Reviewed 06/25/19 @ 11:32 by Lety Larsen) Encounter for monitoring cardiotoxic drug therapy (Acute) Pulmonary hypertension (Acute) Nonrheumatic tricuspid (valve) insufficiency (Acute) Nonrheumatic mitral valve regurgitation (Acute) Chemotherapy induced diarrhea (Acute) Genetic counseling (Acute) Chemotherapy management, encounter for (Acute) Rash and nonspecific skin eruption (Resolved) Educational circumstance (Acute) Breast cancer (Acute) Dehiscence of incision (Acute) Diabetes (Acute) Chest pain (Acute) Dyspnea (Acute) Fatigue (Acute)
[2019-07-23 13:45] VITALS: BP 110/85; PULSE 64; RESP 18; TEMP 36.8; O2SAT 97; BMI 36.6; BMI 36.7
[2019-07-23 13:51] LABS: Absolute Lymphocyte Count 2.29 X10^3/uL (0.83-4.51); Absolute Neutrophil Count 8.9 X10^3/uL (2.0-7.7); Basophil# 0.04 X10^3/uL; Basophil% 0.3 % (0-1); Eosinophil# 0.16 X10^3/uL; Eosinophils% 1.3 % (0-5); Hematocrit 39.4 % (37-47); Hemoglobin 12.9 g/dL (12.0-15.0); Lymphocyte # 2.29 X10^3/ul (4.0); Lymphocyte % 18.6 % (19-41); Mean Corp Hgb Conc 32.7 g/dL (32-36); Mean Corpuscular Hgb 28.7 pg (27.0-32.0); Mean Corpuscular Volume 87.6 fL (81-99); Mean Platelet Vol. 9.8 fl (6.2-12.0); Monocyte# 0.82 X10^3/uL; Monocyte% 6.7 % (0-10); NRBC Flagged by Analyzer 0 % (0-5); Neutrophil # 8.94 X10^3/uL (2.7-7.7); Neutrophil % 72.7 % (47-70); Platelet Count 300 K/mm3 (150-450); RBC Distribution Width CV 13.3 % (11.6-14.6); RBC Distribution Width SD 42.7 fl (35.1-43.9); White Blood Count 12.3 K/mm3 (4.4-11.0)
[2019-07-23 14:00] VITALS: PULSE 65
[2019-07-23 14:03] LABS: Anion Gap 8 (5-15); BUN 14 mg/dL (7-18); Calcium,Total 9.4 mg/dL (8.5-10.1); Chloride 105 mmol/L (98-107); Creatinine, Serum 0.67 mg/dL (0.55-1.02); EST Glomerular Filtration Rate 92 mL/min (>60); Est Glom Filt Rate - Afr Amer 112 mL/min (>60); Estimated Creatinine Clearance 43.91 ml/min; Glucose 99 mg/dL (74-106); International Normalized Ratio 1.1; Potassium 3.8 mmol/L (3.5-5.1); Prothrombin Time (Protime)PT. 13.5 SECONDS (11.7-14.9); Sodium Level 143 mmol/L (136-145)
--- NOTE | 2019-07-23 14:16 | HP.PCM_ITS ---
Problem List (1) Fracture of hip, right, closed Status: Acute (2) ZITA (obstructive sleep apnea) Status: Chronic (3) Pulmonary hypertension Status: Chronic (4) Nonrheumatic tricuspid (valve) insufficiency Status: Chronic (5) Nonrheumatic mitral valve regurgitation Status: Chronic (6) Atherosclerotic heart disease of [place] coronary artery without angina pectoris Status: Chronic Qualifiers: [place] vs. transplanted heart: [place] heart Qualified Code(s): I25.10 - A therosclerotic heart disease of [place] coronary artery without angina pectoris Comment: PTCA of the DX1 10/04; PCI/HOOD of CX and balloon angioplasty of AV groove diag 09/26/11; IVUS for stenting mid DX1 with fractured pre existing stent 03/12/12 (7) Presence of stent in coronary artery Status: Chronic Comment: PTCA of the DX1 10/04; PCI/HOOD of CX and balloon angioplasty of AV groove diag 09/26/11; IVUS for stenting mid DX1 with fractured pre existing stent 03/12/12 (8) Breast cancer Status: Chronic Qualifiers: Breast location: unspecified site of breast Estrogen receptor status: positive Patient sex: female Laterality: bilateral Qualified Code(s): C50.911 - Malignant neoplasm of unspecified site of right female breast; C50.912 - Malignant neoplasm of unspecified site of left female breast; Z17.0 - Estrogen receptor positive status [ER+] (9) Diabetes Status: Chronic Qualifiers: Diabetes mellitus type: type 2 (10) HLD (hyperlipidemia) Status: Chronic Qualifiers: Hyperlipidemia type: unspecified Qualified Code(s): E78.5 - Hyperlipidemia, unspecified (11) HTN (hypertension) Status: Chronic Qualifiers: Hypertension type: unspecified Qualified Code(s): I10 - Essential (primary) hypertension History of Present Illness Date of Admission: 07/23/19 Chief Complaint: fall on right hip The patient is a 73 year old F with pmhx as above who presents to the ER after a fall today. She was cleaning the rail on her back porch and tripped over a chair, falling onto her right hip. She developed severe hip pain and subsequently could not walk. She denied striking any other parts of her body. She had no dizziness/LH prior to fall. She was brought to the ER and was found to have an acute right trochanteric avulsion fracture. Dr. Harper agreed to see the patient. Pain is currently 8/10 with no movement, worse with any movement. No numbess/tingling in the RLE. She is agreeable to surgery. [] Past Medical History Past Medical History (Chronic Problems): Chronic Problems (Last Reviewed 06/25/19 @ 11:32 by Lety Larsen) ZITA (obstructive sleep apnea) (Chronic) Pulmonary hypertension (Chronic) Nonrheumatic tricuspid (valve) insufficiency (Chronic) Nonrheumatic mitral valve regurgitation (Chronic) Atherosclerotic heart disease of [place] coronary artery without angina pectoris (Chronic) PTCA of the DX1 10/04; PCI/HOOD of CX and balloon angioplasty of AV groove diag 09/26/11; IVUS for stenting mid DX1 with fractured pre existing stent 03/12/12 Presence of stent in coronary artery (Chronic) PTCA of the DX1 10/04; PCI/HOOD of CX and balloon angioplasty of AV groove diag 09/26/11; IVUS for stenting mid DX1 with fractured pre existing stent 03/12/12 Bilateral malignant neoplasm of breast in female (Chronic) TP 53 (variant of uncertain significance) Breast cancer (Chronic) Diabetes (Chronic) Murmur, cardiac (Chronic) HLD (hyperlipidemia) (Chronic) HTN (hypertension) (Chronic) Medical History: Medical History (Last Reviewed 06/25/19 @ 11:32 by Lety Larsen) Pulmonary hypertension (Acute) I27.20 Nonrheumatic tricuspid (valve) insufficiency (Acute) I36.1 Nonrheumatic mitral valve regurgitation (Acute) I34.0 Atherosclerotic heart disease of [place] coronary artery without angina pectoris (Chronic) I25.10 PTCA of the DX1 10/04; PCI/HOOD of CX and balloon angioplasty of AV groove diag 09/26/11; IVUS for stenting mid DX1 with fractured pre existing stent 03/12/12 Diabetes (Acute) E11.9 Chest pain (Acute) R07.9 Dyspnea (Acute) R06.00 Fatigue (Acute) R53.83 Murmur, cardiac (Chronic) R01.1 HLD (hyperlipidemia) (Chronic) E78.5 HTN (hypertension) (Chronic) I10 Heel spur M77.30 History of DVT (deep vein thrombosis) Z86.718 IZTA (obstructive sleep apnea) G47.33 PORT PLACEMENT Osteoarthritis M19.90 Allergies iodine Allergy (Severe, Verified 07/23/19 11:57) Rash povidone-iodine [From Betadine] Adverse Reaction (Severe, Verified 07/23/19 11:57) Itching pravastatin sodium [From Pravachol] Adverse Reaction (Severe, Verified 07/23/19 11:57) LEG CRAMPS rosuvastatin calcium [From Crestor] Adverse Reaction (Severe, Verified 07/23/19 11:57) LEG CRAMPS simvastatin Adverse Reaction (Severe, Verified 07/23/19 11:57) LEG CRAMPS soap [From Betadine] Adverse Reaction (Severe, Verified 07/23/19 11:57) Itching Home Medications: Ambulatory Orders Medication Instructions Recorded Ergocalciferol [Vitamin D] 50,000 unit PO MOTH 05/26/15 Aspirin [Aspirin, Baby] 81 mg PO DAILY@0800 #1 06/10/15 Ibandronate Sodium [Boniva] 150 mg PO Q30D 11/23/15 metformin 500 mg tablet 1,000 mg PO BIDCM tab 06/28/18 atenolol 50 mg tablet 50 mg PO DAILY #90 tab 07/01/18 atorvastatin 10 mg tablet 10 mg PO QHS #90 tab 07/01/18 hydrochlorothiazide 25 mg tablet 25 mg PO DAILY #90 tab 07/01/18 Diazepam [Valium] 2 mg PO TID PRN PRN #10 tab 08/18/18 isosorbide mononitrate ER 30 mg 30 mg PO DAILY #90 tab 02/14/19 tablet,extended release 24 hr Anastrozole [Arimidex] 1 mg PO DAILY #90 tab 06/25/19 Potassium Chloride [K-Tab ER] 10 meq PO 4X/DAY 07/23/19 Ramipril [Altace] 2.5 mg PO DAILY 07/23/19 Surgical History: Surgical History (Last Reviewed 06/25/19 @ 11:32 by Lety Larsen) Presence of stent in coronary artery (Chronic) Z95.5 PTCA of the DX1 10/04; PCI/HOOD of CX and balloon angioplasty of AV groove diag 09/26/11; IVUS for stenting mid DX1 with fractured pre existing stent 03/12/12 Postsurgical percutaneous transluminal coronary angioplasty (PTCA) status Z98.61 PTCA of the DX1 10/04; PCI/HOOD of CX and balloon angioplasty of AV groove diag 09/26/11; IVUS for stenting mid DX1 with fractured pre existing stent 03/12/12 History of bilateral mastectomy Z90.13 History of carpal tunnel surgery Z98.890 History of cholecystectomy Z90.49 History of colonoscopy Z98.890 History of knee joint replacement Z96.659 History of right breast biopsy Z98.890 Surgical History: angioplasty, arthroscopy, knee, cholecystectomy, - - bone spur removal Psychiatric History: No pertinent psych hx TAX APPRAISER History: No pertinent TAX 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 history Lives: Alone Smoking Status: Never smoker Tobacco Use: Non-smoker Alcohol: None Drugs: None - *Family History Paternal Family History: Family History (Last Reviewed 06/25/19 @ 11:32 by Lety Larsen) Sister Pancreatic cancer Diabetes Heart disease Breast cancer Hypertension Leukemia Brother Diabetes Bone cancer Heart disease Hypertension CVA (cerebral vascular accident) Leukemia Mother Ovarian cancer Father Heart disease History Items: No pertinent history Maternal Family History: Family History (Last Reviewed 06/25/19 @ 11:32 by Lety Larsen) Sister Pancreatic cancer Diabetes Heart disease Breast cancer Hypertension Leukemia Brother Diabetes Bone cancer Heart disease Hypertension CVA (cerebral vascular accident) Leukemia Mother Ovarian cancer Father Heart disease History Items: No pertinent history Sibling Family History: Family History (Last Reviewed 06/25/19 @ 11:32 by eLty Larsen) Sister Pancreatic cancer Diabetes Heart disease Breast cancer Hypertension Leukemia Brother Diabetes Bone cancer Heart disease Hypertension CVA (cerebral vascular accident) Leukemia Mother Ovarian cancer Father Heart disease History Items: No pertinent history Review of Systems Constitutional: Denies: Chills, Fever, Weight Change HEENT: Denies: Head Aches, Sinus Congestion, Sinus Drainage Cardiovascular: Denies: Chest Pain, Palpitations Respiratory: Denies: Cough, Shortness of breath at rest, Sputum production Gastrointestinal: Denies: Abdominal Pain, Nausea, Vomiting Genitourinary: Denies: Dysuria Musculoskeletal: Reports: Joint Pain, Joint swelling, Joint Tenderness. Denies: Neck Pain Skin: Denies: Rash, Wounds Neurological: Denies: Numbness, Tingling, Focal weakness Psychiatric: Denies: Anxiety, Depression, Homicidal Ideations, Suicidal Ideations Hematologic/ Lymphatic: Denies: Easy Bruising, Easy Bleeding VTE Information - Inpt Only VTE Present on Admission: No VTE Mechan Device Prophylaxis: None VTE Pharm Prophylaxis ordered?: Yes Patient Problems: Active and Suspected Problems (Last Reviewed 06/25/19 @ 11:32 by Lety Larsen) Fracture of hip, right, closed (Acute) - Physical Exam General: Alert, Oriented x3, Cooperative HEENT: Atraumatic, PERRLA, EOMI, Normocephalic Neck: Supple, No JVD, Negative Carotid Bruits Lungs: Clear to auscultation, Normal air movement Cardiovascular: Regular rate, No murmurs Abdomen: Bowel Sounds Present, Soft, Non Tender Extremities: No edema, Capillary Refill Less than 3 Seconds Skin: No rashes, No breakdown Musculoskeletal: No Tenderness to Palpation of Joints or Extremities, - - PMS intact BL LE Neurological: Cranial nerves II-XII grossly intact Psych/Mental Status: Normal Affect, Appropriate, Alert and oriented to time, place, person, mood and affect Vital Signs Temp Pulse Resp BP Pulse Ox 98.2 F 64 18 110/85 H 97 07/23/19 13:45 07/23/19 13:45 07/23/19 13:45 07/23/19 13:45 07/23/19 13:45 Oxygen Delivery Method Room Air Weight: 213 lb 12.8 oz Body Mass Index (BMI) 36.6 Finger Stick Blood Glucose 151 Laboratory Tests Past 24 Hrs 07/23/19 07/23/19 07/23/19 13:40 13:40 13:40 WBC 12.3 H RBC 4.50 Hgb 12.9 Hct 39.4 MCV 87.6 MCH 28.7 MCHC 32.7 RDW Std Deviation 42.7 RDW Coeff of Ruel 13.3 Plt Count 300 MPV 9.8 Immature Gran % (Auto) 0.400 Neut % (Auto) 72.7 H Lymph % (Auto) 18.6 L [place] % (Auto) 6.7 Eos % (Auto) 1.3 Baso % (Auto) 0.3 Absolute Neuts (auto) 8.9 H Absolute Lymphs (auto) 2.29 Nucleated RBC % 0 PT 13.5 INR 1.1 Sodium 143 Potassium 3.8 Chloride 105 Carbon Dioxide 30.0 Anion Gap 8 BUN 14 Creatinine 0.67 Estim Creat Clear Calc 43.91 Est GFR (MDRD) Af Amer 112 Est GFR (MDRD) Non-Af 92 BUN/Creatinine Ratio 21.0 H Glucose 99 Calcium 9.4 Assessment/Plan All Active Problems (Last Reviewed 06/25/19 @ 11:32 by Lety Larsen) Encounter for monitoring cardiotoxic drug therapy (Acute) Fracture of hip, right, closed (Acute) Chemotherapy induced diarrhea (Acute) Genetic counseling (Acute) Chemotherapy management, encounter for (Acute) Rash and nonspecific skin eruption (Resolved) Educational circumstance (Acute) Dehiscence of incision (Acute) Chest pain (Acute) Dyspnea (Acute) Fatigue (Acute) 1. Acute right trochanteric avulsion fracture and right gluteus minimus tears, bursitis, hip effusion 2/2 mechanical fall - See MRI report. Dr. Jones following. Mild reactive leukocytosis - trend. No prior hx of issues with anaesthesia. Last ate at 8am today. 2. CAD with hx stents, HTN, HLD - last seen by Dr. Segovia in July and was doing well at that time. Echo 02/2019 with EF 60%, St2 diastolic dysfunction, PASP 37mmHg. On JENNI-I, beta leonard, aspirin, statin, HCTZ, isosorbide 3. Hx Breast cancer reportedly in remission - on azathioprine. Pt of Dr. Ochoa. Prior BL mastectomy. 4. Hx DVT - not on OAC. 5. Hx ZITA - compliant with Bipap at home - she will have this brought in today. 6. DMt2 - hold orals - SSI. 7. Anxiety - prn valium 8. Osteoporosis - ibandronate, Vit D. DVT ppx: per ortho DC planning: PTOT - lives alone This patient was seen by Eladio Heath PA-C under the supervision of Dr. Sarabia.
[2019-07-23 16:00] VITALS: PULSE 65
[2019-07-23 16:31] LABS: Bedside Glucose 112 mg/dL (70-110)
[2019-07-23 16:44] LABS: Hemoglobin A1c 6.8 % (4.2-6.3)
[2019-07-23] MEDS: oxyCODONE 5 MG Tablet PO ×2 (17:36→21:53)
[2019-07-23 20:01] VITALS: BP 126/54; PULSE 67; RESP 18; TEMP 37.1; O2SAT 94
[2019-07-23 20:02] VITALS: PULSE 67
[2019-07-23] MEDS: Atorvastatin Calcium 10 MG Tablet PO (21:47)
[2019-07-23] MEDS: Insulin Lispro 100 UNIT/ML INSULN.PEN SC (21:52)
[2019-07-23 22:01] LABS: Bedside Glucose 162 mg/dL (70-110)
[2019-07-24] VITALS (8 sets, daily range): BP systolic 129–147; BP diastolic 56–67; PULSE 61–72; RESP 18; TEMP 37–37.2; O2SAT 94–96
[2019-07-24] MEDS: oxyCODONE 5 MG Tablet PO (06:20)
[2019-07-24] MEDS: 0.9% NaCl Peripheral Flush Adult/Peds IV (06:31)
[2019-07-24 06:36] LABS: Bedside Glucose 132 mg/dL (70-110)
[2019-07-24] MEDS: Aspirin 81 MG TAB.CHEW PO (08:29)
--- NOTE | 2019-07-24 09:30 | CASEMGMT ---
Social Work Note ARTIE spoke with Marta with [facility]. Marta states [facility] is able to accept pt if pt is agreeable. ARTIE informed Marta this worker will speak with pt. Plan: [facility] if pt is agreeable Joselyn Couch POLISHER AND BUFFER, SOFTWARE TEST ANALYST
[2019-07-24] MEDS: Atenolol 50 MG Tablet PO (10:01)
[2019-07-24] MEDS: Isosorbide Mononitrate 30 MG Tablet PO (10:01)
[2019-07-24] MEDS: Anastrozole 1 MG Tablet PO (10:01)
[2019-07-24] MEDS: Enoxaparin 40 MG/0.4 ML Syringe SC (10:01)
[2019-07-24] MEDS: hydroCHLOROthiazide 25 MG Tablet PO (10:01)
[2019-07-24] MEDS: Ramipril 2.5 MG Capsule PO (10:01)
--- NOTE | 2019-07-24 11:04 | CASEMGMT ---
Social Work Assessment Referral Date: 07/24/2019 Date of Assessment: 07/24/2019 Reason for consult: [facility] Informant: SW Personal Status: SW met with pt to complete initial assessment. SW introduced self and role at [facility]. Pt is alert and orientated x4. Pt states that she lives alone in a one story home with one step to enter. Pt states that she was previously independent with ADLs. DME include cane and walker. PCP is Dr. Cast and preferred pharmacy is [facility]. Substance Abuse Hx: Pt denied Mental Health Hx: Pt denied SW reviewed PT/OT and the recommendation is for pt to go to [facility]. SW discussed [facility] with pt. Pt is agreeable to [facility]. Physician updated. SW placed a call to Marta with [facility] and updated her that pt is agreeable to [facility] and will be discharged today. Plan: [facility] today Joselyn Couch INSULATION MANAGER, TECHNICIAN ANATOMIC PATHOLOGY
--- NOTE | 2019-07-24 11:22 | DCINST_ITS ---
- Discharge Diagnoses Current Active Problems: Current Active and Chronic Problems (Last Reviewed 06/25/19 @ 11:32 by Lety Larsen) Fracture of hip, right, closed (Acute) ZITA (obstructive sleep apnea) (Chronic) You will use the following diet at home:: Calorie/Carbohydrate Controlled (specify 1200, 1400, etc) - 1800, Cardiac Your food should be the consistency of: Regular Your liquids should be the consistency of: Regular/Thin Discharge Activity: Use Walker Allergies/Adverse Reactions: Allergies iodine Allergy (Severe, Verified 07/23/19 11:57) Rash povidone-iodine [From Betadine] Adverse Reaction (Severe, Verified 07/23/19 11:57) Itching pravastatin sodium [From Pravachol] Adverse Reaction (Severe, Verified 07/23/19 11:57) LEG CRAMPS rosuvastatin calcium [From Crestor] Adverse Reaction (Severe, Verified 07/23/19 11:57) LEG CRAMPS simvastatin Adverse Reaction (Severe, Verified 07/23/19 11:57) LEG CRAMPS soap [From Betadine] Adverse Reaction (Severe, Verified 07/23/19 11:57) Itching Medications to take at Discharge Ergocalciferol [Vitamin D] 50,000 unit PO MOTH 05/26/15 Ibandronate Sodium [Boniva] 150 mg PO Q30D 11/23/15 metformin 500 mg tablet 1,000 mg PO BIDCM tab 06/28/18 atenolol 50 mg tablet 50 mg PO DAILY #90 tab 07/01/18 atorvastatin 10 mg tablet 10 mg PO QHS #90 tab 07/01/18 hydrochlorothiazide 25 mg tablet 25 mg PO DAILY #90 tab 07/01/18 Diazepam [Valium] 2 mg PO TID PRN PRN #10 tab 08/18/18 isosorbide mononitrate ER 30 mg tablet,extended release 24 hr 30 mg PO DAILY #90 tab 02/14/19 Anastrozole [Arimidex] 1 mg PO DAILY #90 tab 06/25/19 Potassium Chloride [K-Tab ER] 10 meq PO 4X/DAY 07/23/19 Ramipril [Altace] 2.5 mg PO DAILY 07/23/19 Acetaminophen [Tylenol Tablet] 650 mg PO Q6H PRN PRN tab 07/24/19 Aspirin [Aspirin, Baby] 81 mg PO BID #1 07/24/19 Mag Hydrox/Al Hydrox/Simeth [Mylanta II] 30 ml PO Q6H PRN PRN udc 07/24/19 Magnesium Hydroxide [Milk Of Magnesia] 30 ml PO DAILY PRN PRN #1 udc 07/24/19 Melatonin 3 mg PO QHS tab 07/24/19 Nitroglycerin (INPATIENT USE) [Nitrostat] 0.4 mg SUBLINGUAL Q5M PRN tab.subl 07/24/19 Oxycodone [Oxyir] 5 mg PO Q4H PRN PRN 1 Days #1 tab 07/24/19 The following prescriptions were given: Magnesium Hydroxide [Milk Of Magnesia] 30 ml PO DAILY PRN PRN #1 udc PRN Reason: Constipation Primary Care Physician: Jb Cast MD [Primary Care Provider] - Please follow up with your Primary Care Physician in: following DC from rehab Test Results: Test results from this visit will be discussed in further detail at your follow- up appointment, if applicable. Please Follow Up With: Jenny Jones DO When: 3 weeks Proposed Discharge Date: 07/24/19
--- NOTE | 2019-07-24 11:28 | DS.PCM_ITS ---
Discharge Date and Diagnosis - Problem List Patient Problems: Active and Suspected Problems (Last Reviewed 06/25/19 @ 11:32 by Lety Larsen) Fall (Acute) Diabetes mellitus type 2 in obese (Acute) Fracture of hip, right, closed (Acute) Date of Admission: 07/23/19 Date of Discharge: 07/24/19 - Primary Discharge Diagnosis Active and Suspected Problems (Last Reviewed 06/25/19 @ 11:32 by Lety Larsen) Fall (Acute) Traumatic Fracture of R hip due to a fall, closed (Acute) - Secondary Discharge Diagnosis Chronic Problems (Last Reviewed 06/25/19 @ 11:32 by Lety Larsen) Obesity (BMI 30-39.9) (Chronic) Encounter for monitoring cardiotoxic drug therapy (Chronic) ZITA (obstructive sleep apnea) (Chronic) Pulmonary hypertension (Chronic) Nonrheumatic tricuspid (valve) insufficiency (Chronic) Nonrheumatic mitral valve regurgitation (Chronic) Atherosclerotic heart disease of [place] coronary artery without angina pectoris (Chronic) PTCA of the DX1 10/04; PCI/HOOD of CX and balloon angioplasty of AV groove diag 09/26/11; IVUS for stenting mid DX1 with fractured pre existing stent 03/12/12 Presence of stent in coronary artery (Chronic) PTCA of the DX1 10/04; PCI/HOOD of CX and balloon angioplasty of AV groove diag 09/26/11; IVUS for stenting mid DX1 with fractured pre existing stent 03/12/12 Chemotherapy induced diarrhea (Chronic) Genetic counseling (Chronic) Chemotherapy management, encounter for (Chronic) Bilateral malignant neoplasm of breast in female (Chronic) TP 53 (variant of uncertain significance) Breast cancer (Chronic) Diabetes Mellitus II (Chronic) Murmur, cardiac (Chronic) HLD (hyperlipidemia) (Chronic) HTN (hypertension) (Chronic) Hospital Course and Treatment Imaging Results: Clinical Impression(s) from Imaging Studies Hip/Pelvis X-Ray 07/23/19 09:33 IMPRESSION: Findings suggestive of a nondisplaced avulsion fracture of the right greater trochanter. Electronically Signed: Gabriel Tabor, at 10:13 EDT , Service support , Lower Extremity CT 07/23/19 10:21 IMPRESSION: Comminuted nondisplaced avulsion fracture of the greater trochanter of the proximal right femur as described. This does not extend into the intertrochanteric region. Electronically Signed: Gabriel Sharona, at 11:26 EDT , Service support , Lower Extremity MRI 07/23/19 11:43 IMPRESSION: Reidentified comminuted avulsed right greater trochanter fracture without additional extension High-grade partial-thickness right gluteus medius/minimus tendon tears Soft tissue swelling, greater trochanteric bursitis and hip joint effusion Osteoarthritic changes with labral degeneration Electronically Signed: Darin Madrid, DO at 13:47 EDT Tel , Service support , Laboratory Results - last 24 hr 07/23/19 07/23/19 07/23/19 13:40 13:40 13:40 WBC 12.3 H RBC 4.50 Hgb 12.9 Hct 39.4 MCV 87.6 MCH 28.7 MCHC 32.7 RDW Std Deviation 42.7 RDW Coeff of Ruel 13.3 Plt Count 300 MPV 9.8 Immature Gran % (Auto) 0.400 Neut % (Auto) 72.7 H Lymph % (Auto) 18.6 L [place] % (Auto) 6.7 Eos % (Auto) 1.3 Baso % (Auto) 0.3 Absolute Neuts (auto) 8.9 H Absolute Lymphs (auto) 2.29 Nucleated RBC % 0 PT 13.5 INR 1.1 Sodium 143 Potassium 3.8 Chloride 105 Carbon Dioxide 30.0 Anion Gap 8 BUN 14 Creatinine 0.67 Estim Creat Clear Calc 43.91 Est GFR (MDRD) Af Amer 112 Est GFR (MDRD) Non-Af 92 BUN/Creatinine Ratio 21.0 H Glucose 99 Hemoglobin A1c Calcium 9.4 POC Glucose 07/23/19 07/23/19 07/23/19 13:51 16:14 21:45 WBC RBC Hgb Hct MCV MCH MCHC RDW Std Deviation RDW Coeff of Ruel Plt Count MPV Immature Gran % (Auto) Neut % (Auto) Lymph % (Auto) [place] % (Auto) Eos % (Auto) Baso % (Auto) Absolute Neuts (auto) Absolute Lymphs (auto) Nucleated RBC % PT INR Sodium Potassium Chloride Carbon Dioxide Anion Gap BUN Creatinine Estim Creat Clear Calc Est GFR (MDRD) Af Amer Est GFR (MDRD) Non-Af BUN/Creatinine Ratio Glucose Hemoglobin A1c 6.8 H Calcium POC Glucose 112 H 162 H 07/24/19 06:29 WBC RBC Hgb Hct MCV MCH MCHC RDW Std Deviation RDW Coeff of Ruel Plt Count MPV Immature Gran % (Auto) Neut % (Auto) Lymph % (Auto) [place] % (Auto) Eos % (Auto) Baso % (Auto) Absolute Neuts (auto) Absolute Lymphs (auto) Nucleated RBC % PT INR Sodium Potassium Chloride Carbon Dioxide Anion Gap BUN Creatinine Estim Creat Clear Calc Est GFR (MDRD) Af Amer Est GFR (MDRD) Non-Af BUN/Creatinine Ratio Glucose Hemoglobin A1c Calcium POC Glucose [address] Jenny Jones-orthopedics Operations: None Procedures: None Summary of Care Provided: Mrs. Wolfe is a 73 YO F with a past medical history of PTCA/HOOD of the CX and mid diagonal #1, diabetes mellitus type 2, obesity, breast cancer (follow with Dr. Ochoa), BL mastectomy, hyperlipidemia and HTN who tripped and fell at home and landed on her R hip. She had severe pain and was unable to bear weight. She had plain x-ray, CT scan and an MRI of the right hip and results were consistent with an avulsion fracture of the right greater trochanter without intertrochanteric extension. She was seen in consultation by Dr. Jones who recommended pain control and weightbearing as tolerated. No surgical intervention was indicated. Patient lives by herself and had some difficulty using the walker. Physical therapy recommended rehab. She was agreeable and she was transferred to the rehab unit at [facility] on 07/24/2019. She was afebrile in the hospital with stable vital signs. Prior to discharge she stated her pain was adequately controlled with OxyIR 5 mg every 4 hours as needed. Bed admission was unremarkable. Blood sugars are well controlled and her hemoglobin A1c was 6.8. He denied nausea, vomiting, abdominal pain, constipation, shortness of breath or chest pain at the time of discharge. PHYSICAL EXAM: GENERAL: alert, oriented X 3, Cooperative, NAD, sitting in the recliner when I examined her. I observed her ambulating in the room and she is very slow and a little unsteady. ORAL: moist mucosa, no mucosal lesions NECK: No JVD, supple, trachea midline LUNGS: CTA, symmetric chest expansion....with BL mastectomies HEART: RRR, Normal S1 and S2, no rub, no gallop ABDOMEN: soft, NT, ND, BS present, no guarding with palpation EXTREMITIES: no edema, no cyanosis, no calf tenderness, intact neurovascular bundle to both LE's SKIN: No rashes, no breakdown NEUROLOGIC: no focal neurologic deficits PSYCH: appropriate, normal affect, pleasant This note was generated with [employer] dictation software. It may contain incorrect words, spelling, and punctuation that were not noted in checking the note before signing. Patient Problems: Active and Suspected Problems (Last Reviewed 06/25/19 @ 11:32 by Lety Larsen) Fall (Acute) Diabetes mellitus type 2 in obese (Acute) Fracture of hip, right, closed (Acute) - Physical Exam Vital Signs Temp Pulse Resp BP Pulse Ox 98.6 F 72 18 147/67 H 94 07/24/19 08:25 07/24/19 08:35 07/24/19 08:25 07/24/19 08:25 07/24/19 08:25 Oxygen Delivery Method Room Air Weight: 213 lb 12.8 oz Body Mass Index (BMI) 36.6 Finger Stick Blood Glucose 151 Intake and Output for Last 24 Hours 07/22/19 07/23/19 07/24/19 23:59 23:59 23:59 Intake Total 600 / 600 Output Total 250 / 250 450 / 450 Balance 350 / 350 -450 / -450 Laboratory Tests Past 24 Hrs 07/23/19 07/23/19 07/23/19 13:40 13:40 13:40 WBC 12.3 H RBC 4.50 Hgb 12.9 Hct 39.4 MCV 87.6 MCH 28.7 MCHC 32.7 RDW Std Deviation 42.7 RDW Coeff of Ruel 13.3 Plt Count 300 MPV 9.8 Immature Gran % (Auto) 0.400 Neut % (Auto) 72.7 H Lymph % (Auto) 18.6 L [place] % (Auto) 6.7 Eos % (Auto) 1.3 Baso % (Auto) 0.3 Absolute Neuts (auto) 8.9 H Absolute Lymphs (auto) 2.29 Nucleated RBC % 0 PT 13.5 INR 1.1 Sodium 143 Potassium 3.8 Chloride 105 Carbon Dioxide 30.0 Anion Gap 8 BUN 14 Creatinine 0.67 Estim Creat Clear Calc 43.91 Est GFR (MDRD) Af Amer 112 Est GFR (MDRD) Non-Af 92 BUN/Creatinine Ratio 21.0 H Glucose 99 Hemoglobin A1c Calcium 9.4 07/23/19 13:51 WBC RBC Hgb Hct MCV MCH MCHC RDW Std Deviation RDW Coeff of Ruel Plt Count MPV Immature Gran % (Auto) Neut % (Auto) Lymph % (Auto) [place] % (Auto) Eos % (Auto) Baso % (Auto) Absolute Neuts (auto) Absolute Lymphs (auto) Nucleated RBC % PT INR Sodium Potassium Chloride Carbon Dioxide Anion Gap BUN Creatinine Estim Creat Clear Calc Est GFR (MDRD) Af Amer Est GFR (MDRD) Non-Af BUN/Creatinine Ratio Glucose Hemoglobin A1c 6.8 H Calcium POC Glucose 07/24/19 07/23/19 07/23/19 06:29 21:45 16:14 POC Glucose 132 H 162 H 112 H Discharge Activity: Use Walker Home Medications: Medications to take at Discharge Ergocalciferol [Vitamin D] 50,000 unit PO MOTH 05/26/15 Ibandronate Sodium [Boniva] 150 mg PO Q30D 11/23/15 metformin 500 mg tablet 1,000 mg PO BIDCM tab 06/28/18 atenolol 50 mg tablet 50 mg PO DAILY #90 tab 07/01/18 atorvastatin 10 mg tablet 10 mg PO QHS #90 tab 07/01/18 hydrochlorothiazide 25 mg tablet 25 mg PO DAILY #90 tab 07/01/18 Diazepam [Valium] 2 mg PO TID PRN PRN #10 tab 08/18/18 isosorbide mononitrate ER 30 mg tablet,extended release 24 hr 30 mg PO DAILY #90 tab 02/14/19 Anastrozole [Arimidex] 1 mg PO DAILY #90 tab 06/25/19 Potassium Chloride [K-Tab ER] 10 meq PO 4X/DAY 07/23/19 Ramipril [Altace] 2.5 mg PO DAILY 07/23/19 Acetaminophen [Tylenol Tablet] 650 mg PO Q6H PRN PRN tab 07/24/19 Aspirin [Aspirin, Baby] 81 mg PO BID #1 07/24/19 Mag Hydrox/Al Hydrox/Simeth [Mylanta II] 30 ml PO Q6H PRN PRN udc 07/24/19 Magnesium Hydroxide [Milk Of Magnesia] 30 ml PO DAILY PRN PRN #1 udc 07/24/19 Melatonin 3 mg PO QHS tab 07/24/19 Nitroglycerin (INPATIENT USE) [Nitrostat] 0.4 mg SUBLINGUAL Q5M PRN tab.subl 07/24/19 Oxycodone [Oxyir] 5 mg PO Q4H PRN PRN 1 Days #1 tab 07/24/19 Following Prescrptions Were Given to Patient: Magnesium Hydroxide [Milk Of Magnesia] 30 ml PO DAILY PRN PRN #1 udc PRN Reason: Constipation Primary Care Physician: Jb Cast MD [Primary Care Provider] - Please follow up with your Primary Care Physician in: following DC from rehab Please Follow Up With: Jenny Jones DO When: 3 weeks Disposition: Inpt Rehab Unit/Facility - [facility] rehab floor Minutes spent on discharge:: 30 Patient Condition:: Good Medical Necessity - Tobacco Use Smoking Status: Never smoker Tobacco Use: Non-smoker Meaningful Use Info Meaningful Use Diagnoses (Choose all that apply): None applicable Code Visit Inpatient E&M: 59358 Disch Hosp
[2019-07-24] MEDS: Insulin Lispro 100 UNIT/ML INSULN.PEN SC (11:39)
[2019-07-24 11:46] LABS: Bedside Glucose 152 mg/dL (70-110)
--- NOTE | 2019-07-24 14:13 | PCM.HP.COS ---
History of Present Illness Date of Admission: 07/24/19 Chief Complaint: Debility secondary to right greater trochanter fx, nonsurgical The patient is a 73 year old F with PMH of HTN, ZITA, DM type II, HLD, Osteoporosis, Chronic nonrheumatic tricuspid insufficiency, nonrheumatic mitral valve regurgitation, atherosclerosis heart disease with HX of stent placement x3, HX of breast CA, post bilateral mastectomy in 2016, with last chemotherapy in March [address] Ochoa, admitted to [facility] on 07/24/19 for debility secondary to right trochanter fx-nonsurgical for greater than 3 hours of therapy per day with a goal of returning home at or near her prior level of independence. Patient was cleaning her porch rail off to hang sheets on them, she tripped over a porch chair and fell onto her right hip. She denies hitting head. X-ray of right hip and pelvis showed a nondisplaced avulsion fx of the right greater trochanter. CT of right femur showed a comminute nondisplaced avulsion fx of the greater trochanter ot the proximal right femur, without extension into intertochanteric region. MRI of right hip showed comminuted avulsed right greater trochanter fx without additional extension with high high-grade partial-thickness right gluteus medius/minimus tendon tears, Soft tissue swelling, greater trochanteric bursitis and hip joint effusion, Osteoarthritic changes with labral degeneration. Orthopedic surgeon Dr. Jones was consulted, no surgery required, RLE WBAT, and pain control. Patient lives alone in a one level house with 1 step to enter. Patient was independent with all ADLs, mobility and driving prior to hospitalization. Past Medical History Past Medical History (Chronic Problems): Chronic Problems (Last Updated 07/24/19 @ 11:24 by Odilia Sarabia DO) Obesity (BMI 30-39.9) (Chronic) Encounter for monitoring cardiotoxic drug therapy (Chronic) ZITA (obstructive sleep apnea) (Chronic) Pulmonary hypertension (Chronic) Nonrheumatic tricuspid (valve) insufficiency (Chronic) Nonrheumatic mitral valve regurgitation (Chronic) Atherosclerotic heart disease of [place] coronary artery without angina pectoris (Chronic) PTCA of the DX1 10/04; PCI/HOOD of CX and balloon angioplasty of AV groove diag 09/26/11; IVUS for stenting mid DX1 with fractured pre existing stent 03/12/12 Presence of stent in coronary artery (Chronic) PTCA of the DX1 10/04; PCI/HOOD of CX and balloon angioplasty of AV groove diag 09/26/11; IVUS for stenting mid DX1 with fractured pre existing stent 03/12/12 Chemotherapy induced diarrhea (Chronic) Genetic counseling (Chronic) Chemotherapy management, encounter for (Chronic) Bilateral malignant neoplasm of breast in female (Chronic) TP 53 (variant of uncertain significance) Breast cancer (Chronic) Diabetes (Chronic) Murmur, cardiac (Chronic) HLD (hyperlipidemia) (Chronic) HTN (hypertension) (Chronic) Medical History: Medical History (Last Updated 07/24/19 @ 11:24 by Odilia Sarabia DO) Pulmonary hypertension (Chronic) I27.20 Nonrheumatic tricuspid (valve) insufficiency (Chronic) I36.1 Nonrheumatic mitral valve regurgitation (Chronic) I34.0 Atherosclerotic heart disease of [place] coronary artery without angina pectoris (Chronic) I25.10 PTCA of the DX1 10/04; PCI/HOOD of CX and balloon angioplasty of AV groove diag 09/26/11; IVUS for stenting mid DX1 with fractured pre existing stent 03/12/12 Diabetes (Chronic) E11.9 Murmur, cardiac (Chronic) R01.1 HLD (hyperlipidemia) (Chronic) E78.5 HTN (hypertension) (Chronic) I10 Heel spur M77.30 History of DVT (deep vein thrombosis) Z86.718 ZITA (obstructive sleep apnea) G47.33 PORT PLACEMENT Osteoarthritis M19.90 Chest pain (Resolved) R07.9 Allergies iodine Allergy (Severe, Verified 07/23/19 11:57) Rash povidone-iodine [From Betadine] Adverse Reaction (Severe, Verified 07/23/19 11:57) Itching pravastatin sodium [From Pravachol] Adverse Reaction (Severe, Verified 07/23/19 11:57) LEG CRAMPS rosuvastatin calcium [From Crestor] Adverse Reaction (Severe, Verified 07/23/19 11:57) LEG CRAMPS simvastatin Adverse Reaction (Severe, Verified 07/23/19 11:57) LEG CRAMPS soap [From Betadine] Adverse Reaction (Severe, Verified 07/23/19 11:57) Itching Home Medications: Ambulatory Orders Medication Instructions Recorded Ergocalciferol [Vitamin D] 50,000 unit PO MOTH 05/26/15 Ibandronate Sodium [Boniva] 150 mg PO Q30D 11/23/15 metformin 500 mg tablet 1,000 mg PO BIDCM tab 06/28/18 atenolol 50 mg tablet 50 mg PO DAILY #90 tab 07/01/18 atorvastatin 10 mg tablet 10 mg PO QHS #90 tab 07/01/18 hydrochlorothiazide 25 mg tablet 25 mg PO DAILY #90 tab 07/01/18 Diazepam [Valium] 2 mg PO TID PRN PRN #10 tab 08/18/18 isosorbide mononitrate ER 30 mg 30 mg PO DAILY #90 tab 02/14/19 tablet,extended release 24 hr Anastrozole [Arimidex] 1 mg PO DAILY #90 tab 06/25/19 Potassium Chloride [K-Tab ER] 10 meq PO 4X/DAY 07/23/19 Ramipril [Altace] 2.5 mg PO DAILY 07/23/19 Acetaminophen [Tylenol Tablet] 650 mg PO Q6H PRN PRN tab 07/24/19 Aspirin [Aspirin, Baby] 81 mg PO BID #1 07/24/19 Mag Hydrox/Al Hydrox/Simeth 30 ml PO Q6H PRN PRN udc 07/24/19 [Mylanta II] Magnesium Hydroxide [Milk Of 30 ml PO DAILY PRN PRN #1 udc 07/24/19 Magnesia] Melatonin 3 mg PO QHS tab 07/24/19 Nitroglycerin (INPATIENT USE) 0.4 mg SUBLINGUAL Q5M PRN tab.subl 07/24/19 [Nitrostat] Oxycodone [Oxyir] 5 mg PO Q4H PRN PRN 1 Days #1 tab 07/24/19 Surgical History: Surgical History (Last Reviewed 06/25/19 @ 11:32 by Lety Larsen) Presence of stent in coronary artery (Chronic) Z95.5 PTCA of the DX1 10/04; PCI/HOOD of CX and balloon angioplasty of AV groove diag 09/26/11; IVUS for stenting mid DX1 with fractured pre existing stent 03/12/12 Postsurgical percutaneous transluminal coronary angioplasty (PTCA) status Z98.61 PTCA of the DX1 10/04; PCI/HOOD of CX and balloon angioplasty of AV groove diag 09/26/11; IVUS for stenting mid DX1 with fractured pre existing stent 03/12/12 History of bilateral mastectomy Z90.13 History of carpal tunnel surgery Z98.890 History of cholecystectomy Z90.49 History of colonoscopy Z98.890 History of knee joint replacement Z96.659 History of right breast biopsy Z98.890 Surgical History: angioplasty, arthroscopy, knee, cholecystectomy, - - bone spur removal bilateral heels Psychiatric History: No pertinent psych hx FAMILY RESOURCE MANAGEMENT PROFESSOR History: No pertinent FAMILY RESOURCE MANAGEMENT PROFESSOR history Lives: Alone Smoking Status: Never smoker Tobacco Use: Non-smoker Alcohol: None Drugs: None - *Family History Paternal Family History: Family History (Last Updated 07/24/19 @ 14:49 by BELINDA Daily) Sister Pancreatic cancer Diabetes Heart disease Leukemia Breast cancer Hypertension Brother Diabetes Bone cancer Heart disease Hypertension CVA (cerebral vascular accident) Father No problems noted. History Items: Heart Disease, - - Heart attack at age 62 Maternal Family History: Family History (Last Updated 07/24/19 @ 14:49 by BELINDA Daily) Sister Pancreatic cancer Diabetes Heart disease Leukemia Breast cancer Hypertension Brother Diabetes Bone cancer Heart disease Hypertension CVA (cerebral vascular accident) Father No problems noted. History Items: Heart Disease, - - Ovarian CA at age 76 Sibling Family History: Family History (Last Updated 07/24/19 @ 14:43 by BELINDA Daily) Sister No problems noted. Brother No problems noted. Father No problems noted. Other Bone cancer Breast cancer CVA (cerebral vascular accident) Diabetes Heart disease Hypertension Leukemia Myocardial infarction Ovarian cancer Pancreatic cancer Review of Systems Constitutional: Denies: Chills, Fever, Weight Change Eyes: Denies: Blurred vision, Cataracts, Double vision, Vision Change HEENT: Denies: Difficulty Hearing, Difficulty Swallowing, Head Aches, Sinus Congestion, Sinus Drainage Cardiovascular: Denies: Chest Pain, Chest Pressure, Chest Tightness, Palpitations Respiratory: Denies: Cough, Shortness of Breath, Shortness of breath at rest, Sputum production Gastrointestinal: Denies: Abdominal Pain, Constipation, Diarrhea, Nausea, Vomiting Genitourinary: Denies: Dysuria, Frequency, Urgency Musculoskeletal: Reports: Joint Pain - mild to right hip Neurological: Denies: Balance problems, Double vision, Change in Speech, Slurred speech, Confusion, Focal weakness, Numbness, Tingling Psychiatric: Denies: Anxiety, Depression, Homicidal Ideations, Suicidal Ideations Hematologic/ Lymphatic: Denies: Easy Bruising, Easy Bleeding VTE Information - Inpt Only VTE Present on Admission: No VTE Mechan Device Prophylaxis: Knee High AMANDA Hose VTE Pharm Prophylaxis ordered?: Yes Patient Problems: Active and Suspected Problems (Last Updated 07/24/19 @ 11:24 by Odilia Sarabia DO) Fall (Acute) Diabetes mellitus type 2 in obese (Acute) Fracture of hip, right, closed (Acute) - Physical Exam General: Alert, Oriented x3, Cooperative HEENT: Atraumatic Oral: Moist Mucosa Neck: Supple, No JVD Lungs: Clear to auscultation, Normal air movement Cardiovascular: Regular rate, Regular Rhythm Abdomen: Bowel Sounds Present, Soft, Non Tender Extremities: No clubbing, No cyanosis, No edema Skin: - - ecchymotic area to right hip Neurological: Cranial nerves II-XII grossly intact, Deep Tendon Reflexes 2+/4 and Symmetrical, Motor Exam 5/5 strength throughout Psych/Mental Status: Normal Affect, Appropriate, Alert and oriented to time, place, person, mood and affect Vital Signs Temp Pulse Resp BP Pulse Ox 98.6 F 68 18 147/67 H 94 07/24/19 08:25 07/24/19 13:49 07/24/19 08:25 07/24/19 08:25 07/24/19 08:25 Oxygen Delivery Method Room Air Weight: 96.978 kg Body Mass Index (BMI) 36.6 Finger Stick Blood Glucose 151 Intake and Output for Last 24 Hours 07/22/19 07/23/19 07/24/19 23:59 23:59 23:59 Intake Total 600 / 600 Output Total 250 / 250 450 / 450 Balance 350 / 350 -450 / -450 Laboratory Tests Past 24 Hrs 07/23/19 07/23/19 13:40 13:51 PT 13.5 INR 1.1 Hemoglobin A1c 6.8 H POC Glucose 07/24/19 07/24/19 07/23/19 11:37 06:29 21:45 POC Glucose 152 H 132 H 162 H 07/23/19 16:14 POC Glucose 112 H Assessment/Plan All Active Problems (Last Updated 07/24/19 @ 11:24 by Odilia Sarabia DO) Fall (Acute) Diabetes mellitus type 2 in obese (Acute) Fracture of hip, right, closed (Acute) Rash and nonspecific skin eruption (Resolved) Chest pain (Resolved) Dehiscence of incision (Resolved) Educational circumstance (Resolved) The patient is a 73 year old F with PMH of HTN, ZITA, DM type II, HLD, Osteoporosis, Chronic nonrheumatic tricuspid insufficiency, nonrheumatic mitral valve regurgitation, atherosclerosis heart disease with HX of stent placement x3, HX of breast CA, post bilateral mastectomy in 2017, with last chemotherapy in March [address] Ochoa, admitted to [facility] on 07/24/19 for debility secondary to right trochanter fx-nonsurgical for greater than 3 hours of therapy per day with a goal of returning home at or near her prior level of independence. Patient was cleaning her porch rail off to hang sheets on them, she tripped over a porch chair and fell onto her right hip. She denies hitting head. X-ray of right hip and pelvis showed a nondisplaced avulsion fx of the right greater trochanter. CT of right femur showed a comminute nondisplaced avulsion fx of the greater trochanter ot the proximal right femur, without extension into intertochanteric region. MRI of right hip showed comminuted avulsed right greater trochanter fx without additional extension with high high-grade partial-thickness right gluteus medius/minimus tendon tears, Soft tissue swelling, greater trochanteric bursitis and hip joint effusion, Osteoarthritic changes with labral degeneration. Orthopedic surgeon Dr. Jones was consulted, no surgery required, RLE WBAT, and pain control. Patient lives alone in a one level house with 1 step to enter. Patient was independent with all ADLs, mobility and driving prior to hospitalization. Plan - PT for mobility - OT for ADLs - Analgesics - Right greater trochanter- non-surgical- WBAT, pain control - HTN on atenolol, Hctz, isosorbide mononitrate, Altace - DM type II on metformin, humalog S.C. monitor glucose AC&HS - HLD on lipitor - Osteoporosis on Vitamin D and Boniva - ZITA on Bipap - CAD on asa - Breast CA- post bilateral mastectomy by Dr. Otto, last chemotherapy March [address] Ochoa - currently on Arimidex - GI/DVT prophylaxis - pepcid/lovenox, knee high amanda hose - Medical management per hospitalist- consult - Bowel protocol - Fall precautions - F/U with PCP, Dr. Jones, Dr. Ochoa
== END 2019-07-24 16:02 | DRG 536 ==
LOC: ED 09:59 → MS3 12:13
PROVIDERS: Admitting Provider Internal Medicine; Emergency Provider Emergency Medicine; Family Provider Family Medicine; PCP Family Medicine; Referring Provider Internal Medicine; Visit Provider Internal Medicine
DX: S72.111A Displaced fracture of greater trochanter of right femur, initial encounter for closed fracture (principal); W01.0XXA Fall on same level from slipping, tripping and stumbling without subsequent striking against object, initial encounter; Y92.018 Other place in single-family (private) house as the place of occurrence of the external cause; M81.0 Age-related osteoporosis without current pathological fracture; E11.9 Type 2 diabetes mellitus without complications; G47.33 Obstructive sleep apnea (adult) (pediatric); Z86.718 Personal history of other venous thrombosis and embolism; Z85.3 Personal history of malignant neoplasm of breast; Z90.13 Acquired absence of bilateral breasts and nipples; I25.10 Atherosclerotic heart disease of native coronary artery without angina pectoris; Z95.5 Presence of coronary angioplasty implant and graft; Z79.84 Long term (current) use of oral hypoglycemic drugs; I36.1 Nonrheumatic tricuspid (valve) insufficiency; I27.20 Pulmonary hypertension, unspecified; E66.9 Obesity, unspecified; Z68.36 Body mass index [BMI] 36.0-36.9, adult; I10 Essential (primary) hypertension; E78.5 Hyperlipidemia, unspecified
CPT/HCPCS: 73502; 73700; 73721; 80048; 82962; 83036; 85025; 85610; 97162; 97166; 99285; A4216

== ENCOUNTER 2019-07-24 16:03 | Inpatient (IN) | payer MEDICARE, OTHER, SELFPAY ==
[2019-07-23 13:45] VITALS: BMI 36.6
[2019-07-24 16:14] VITALS: BP 109/79; PULSE 72; RESP 16; TEMP 37.2; O2SAT 93; BMI 36.4
[2019-07-24 17:01] LABS: Bedside Glucose 116 mg/dL (70-110)
[2019-07-24] MEDS: metFORMIN HCl 500 MG Tablet 1000 MG PO (17:42)
[2019-07-24] MEDS: Aspirin 81 MG TAB.CHEW PO (17:43)
[2019-07-24 18:40] VITALS: BP 126/63; PULSE 79; RESP 16; TEMP 37; O2SAT 92
[2019-07-24] MEDS: Acetaminophen 325 MG Tablet 650 MG PO (19:42)
[2019-07-24] MEDS: Atorvastatin Calcium 10 MG Tablet PO (20:38)
[2019-07-24] MEDS: Senna/Docusate Sodium 1 Tablet 2 TABLET PO (20:38)
[2019-07-24 20:56] LABS: Bedside Glucose 107 mg/dL (70-110)
[2019-07-24 23:26] VITALS: O2SAT 96
[2019-07-25 05:39] LABS: Hematocrit 39.9 % (37-47); Hemoglobin 12.9 g/dL (12.0-15.0); Mean Corp Hgb Conc 32.3 g/dL (32-36); Mean Corpuscular Hgb 28.3 pg (27.0-32.0); Mean Corpuscular Volume 87.5 fL (81-99); Mean Platelet Vol. 10.1 fl (6.2-12.0); Platelet Count 263 K/mm3 (150-450); RBC Distribution Width CV 13.5 % (11.6-14.6); Red Blood Count 4.56 M/mm3 (4.2-5.4); White Blood Count 9.8 K/mm3 (4.4-11.0)
[2019-07-25 05:51] LABS: Anion Gap 7 (5-15); BUN 17 mg/dL (7-18); BUN/Creat Ratio 20.1 RATIO (10-20); Calcium,Total 9.1 mg/dL (8.5-10.1); Chloride 102 mmol/L (98-107); Creatinine, Serum 0.85 mg/dL (0.55-1.02); EST Glomerular Filtration Rate 70 mL/min (>60); Est Glom Filt Rate - Afr Amer 85 mL/min (>60); Estimated Creatinine Clearance 51.66 ml/min; Glucose 139 mg/dL (74-106); Potassium 3.7 mmol/L (3.5-5.1); Sodium Level 139 mmol/L (136-145)
[2019-07-25] MEDS: Enoxaparin 40 MG/0.4 ML Syringe SC ×2 (05:57→07:58)
[2019-07-25] MEDS: Acetaminophen 325 MG Tablet 650 MG PO ×2 (05:57→21:34)
[2019-07-25 06:21] LABS: Bedside Glucose 138 mg/dL (70-110)
[2019-07-25] MEDS: Atenolol 50 MG Tablet PO (07:56)
[2019-07-25] MEDS: Isosorbide Mononitrate 30 MG Tablet PO (07:56)
[2019-07-25] MEDS: Famotidine 20 MG Tablet PO (07:56)
[2019-07-25] MEDS: Aspirin 81 MG TAB.CHEW PO ×2 (07:58→17:55)
[2019-07-25] MEDS: metFORMIN HCl 500 MG Tablet 1000 MG PO ×2 (07:58→17:55)
[2019-07-25] MEDS: Senna/Docusate Sodium 1 Tablet 2 TABLET PO ×2 (07:58→21:34)
[2019-07-25] MEDS: hydroCHLOROthiazide 25 MG Tablet PO (07:58)
[2019-07-25] MEDS: Anastrozole 1 MG Tablet PO (07:58)
[2019-07-25] MEDS: Ramipril 2.5 MG Capsule PO (07:58)
[2019-07-25 08:00] VITALS: BP 128/70; PULSE 68; RESP 18; TEMP 36.7; O2SAT 93
--- NOTE | 2019-07-25 09:26 | REHABEVAL_ITS ---
Admission Information Status Changes from Prescreening?: No changes Identified Actual Problem List:: Mobility Impaired, Self Care Deficit Potential Problem List:: DVT, Bleeding, Infection, UTI, Aspiration, Falls, Skin Integrity, Depression Risk of Complications DVT: LMWH, AMANDA Hose, Sequential Compression Device Bleeding: Monitor Lab Values, Nursing to Teach Precautions for anti-coagulation therapy., Wound, if applicable, to be assessed every shift., Stroke patients assessed for lethargy or change in status. Infection: Clinical Staff to Monitor for S/S of infection:, S/S of infection include fever, redness, warmth, etc. Urinary Tract Infection: Monitor for frequency, burning, discomfort, or incontinence., Nursing will obtain urine sample for urinalysis and C&S when ordered. Aspiration: Clinical staff will monitor for coughing, drooling, congestion., Speech will evaluate swallowing and dsyphasia., Nursing will monitor patient swallowing during meals. Falls: Patient will be evaluated for Fall Precautions, Patient will be placed on Fall Precautions as indicated per protocol. Skin Breakdown: Nursing will assess skin daily using assessment tool., Nursing will place on Skin Breakdown Precautions as indicated. Pain: Clinical staff will assess patient's pain level per protocol., Medications will be given, if needed, and the pain level reassessed., Other methods: Massage, distraction, decrease stimulus, etc. used PRN. Plan of Care Patient requires physician specializing in physical medicine and rehab oversight to provide close medical supervision of rehab issues including: Pain Management, Sleep Problems, Bowel and Bladder, Medical and co-morbidity Management, DVT prophylaxis, Rehabilitation Leadership, Coordination of treatment team Patient needs Physical Therapy: For a minimum of 1 hour, At least 5 out of 7 days Patient needs Physical Therapy to improve:: Mobility, Mobility, Mobility, Strengthening, Transfers, Stretching, ROM, Endurance, Stairs, Gait, Balance Patient needs Occupational Therapy: For a minimum of 1 hour, At least 5 out of 7 days Patient needs Occupational Therapy to improve ADL's incl.: Eating, Grooming, Bathing, Dressing, Toileting, Toilet transfers, Community Reintegration, Higher functioning activities, Household tasks, Adaptive Equipment, Splinting, Other activities as determined Patient requires speech therapy: For a minimum of 1 hour, At least 5 out of 7 days Patient requires speech therapy for: Swallowing, Cognition, Language Skills, Compensatory Strategies Patient requires 24/ Rehabilitation Nursing for: Pain Issues, Identifying and preventing risk factors, Monitoring and reporting current medical conditions, Assisting with ambulation, transfer, and all ADL's, Teaching patients about disease process and medications, Family teaching, Providing safe environment, Bowel and Bladder Issues, Skin integrity, Medication Management Patient needs Repairer Evaporator/ Case Management for: Discharge Planning, Arranging Home Equipment or Services, Family Interventions Patient needs Dietary and Nutrition Services for: Adequate Nutrition, Nutritional Supplements, Nutritional Education Goals Patient will remain: free from falls, or injury at time of discharge. Patient will perform bed mobility at: MOD I level of assist. Patient will complete transfers from bed to chair at: MOD I level of assist. Patient will ambulate: 100 feet, with MOD I assist, with LRD Patient will complete upper body dressing at: MOD I level of assist. Patient will complete lower body dressing at: MOD I level of assist. Patient will complete toileting at: MOD I level of assist. Patient will perform bathing at: MOD I level of assist. Patient will complete grooming at: MOD I level of assist. Patient will complete home management skills at: MOD I level of assist. Patient will achieve: 12 stairs, at MOD I assist Patient will have pain level of: of 3 or less Patient's skin will: remain intact, free from infection. Patient will receive: adequate nutrition. Discharge Planning Pt Prognosis for Sig. Practical Improv. w/in Reasonable Time: Good Estimated Length of stay (days): 16 Anticipated D/C Destination: Home with Outpt Therapy Was Preadmission Assessment Accurate?: Yes
--- NOTE | 2019-07-25 10:23 | PCM.PN.NEU ---
Patient Problems: Active and Suspected Problems (Last Updated 07/24/19 @ 11:24 by Odilia Sarabia DO) Fall (Acute) Diabetes mellitus type 2 in obese (Acute) Subjective: Per nursing, no issues overnight. Per patient tolerating therapies well this am, voiced only mild pain to right hip and tylenol prn is effective. Denies further questions or concerns. - Physical Exam General: Alert, Oriented x3, Cooperative HEENT: Atraumatic, PERRLA Oral: Moist Mucosa Neck: Supple, No JVD Lungs: Clear to auscultation, Normal air movement Cardiovascular: Regular rate, Regular Rhythm Abdomen: Bowel Sounds Present, Soft, Non Tender Extremities: No clubbing, No cyanosis, No edema Skin: - - ecchymotic to right hip Neurological: Cranial nerves II-XII grossly intact, Deep Tendon Reflexes 2+/4 and Symmetrical, Motor Exam 5/5 strength throughout Psych/Mental Status: Normal Affect, Appropriate, Alert and oriented to time, place, person, mood and affect Vital Signs Temp Pulse Resp BP Pulse Ox 98.1 F 68 18 128/70 H 93 07/25/19 08:00 07/25/19 08:00 07/25/19 08:00 07/25/19 08:00 07/25/19 08:00 Oxygen Delivery Method Room Air Weight: 96.3 kg Body Mass Index (BMI) 36.4 Finger Stick Blood Glucose 151 Intake and Output for Last 24 Hours 07/23/19 07/24/19 07/25/19 23:59 23:59 23:59 Intake Total 440 / 440 440 / 440 Output Total 200 / 200 200 / 200 Balance 240 / 240 240 / 240 Laboratory Tests Past 24 Hrs 07/25/19 07/25/19 05:10 05:10 WBC 9.8 RBC 4.56 Hgb 12.9 Hct 39.9 MCV 87.5 MCH 28.3 MCHC 32.3 RDW Std Deviation 43.0 RDW Coeff of Ruel 13.5 Plt Count 263 MPV 10.1 Sodium 139 Potassium 3.7 Chloride 102 Carbon Dioxide 30.0 Anion Gap 7 BUN 17 Creatinine 0.85 Estim Creat Clear Calc 51.66 Est GFR (MDRD) Af Amer 85 Est GFR (MDRD) Non-Af 70 BUN/Creatinine Ratio 20.1 H Glucose 139 H Calcium 9.1 POC Glucose 07/25/19 07/24/19 07/24/19 06:12 20:44 16:55 POC Glucose 138 H 107 116 H Medical Necessity - Tobacco Use Smoking Status: Never smoker Assessment/Plan All Active Problems (Last Updated 07/24/19 @ 11:24 by Odilia Sarabia DO) Fall (Acute) Diabetes mellitus type 2 in obese (Acute) Fracture of hip, right, closed (Acute) Rash and nonspecific skin eruption (Resolved) Chest pain (Resolved) Dehiscence of incision (Resolved) Educational circumstance (Resolved) The patient is a 73 year old F with PMH of HTN, ZITA, DM type II, HLD, Osteoporosis, Chronic nonrheumatic tricuspid insufficiency, nonrheumatic mitral valve regurgitation, atherosclerosis heart disease with HX of stent placement x3, HX of breast CA, post bilateral mastectomy in 2016, with last chemotherapy in March [address] Ochoa, admitted to [email or web address] on 07/24/19 for debility secondary to right trochanter fx-nonsurgical for greater than 3 hours of therapy per day with a goal of returning home at or near her prior level of independence. Patient was cleaning her porch rail off to hang sheets on them, she tripped over a porch chair and fell onto her right hip. She denies hitting head. X-ray of right hip and pelvis showed a nondisplaced avulsion fx of the right greater trochanter. CT of right femur showed a comminute nondisplaced avulsion fx of the greater trochanter ot the proximal right femur, without extension into intertochanteric region. MRI of right hip showed comminuted avulsed right greater trochanter fx without additional extension with high high-grade partial-thickness right gluteus medius/minimus tendon tears, Soft tissue swelling, greater trochanteric bursitis and hip joint effusion, Osteoarthritic changes with labral degeneration. Orthopedic surgeon Dr. Jones was consulted, no surgery required, RLE WBAT, and pain control. Patient lives alone in a one level house with 1 step to enter. Patient was independent with all ADLs, mobility and driving prior to hospitalization. Plan - PT for mobility - OT for ADLs - Analgesics - Right greater trochanter- non-surgical- WBAT, pain control - HTN on atenolol, Hctz, isosorbide mononitrate, Altace - DM type II on metformin, humalog S.C. monitor glucose AC&HS - HLD on lipitor - Osteoporosis on Vitamin D and Boniva - ZITA on Bipap - CAD on asa - Breast CA- post bilateral mastectomy by Dr. Otto, last chemotherapy March [address] Ochoa - currently on Arimidex - GI/DVT prophylaxis - pepcid/lovenox, knee high davis hose - Medical management per hospitalist- consult - Bowel protocol - Fall precautions - F/U with PCP, Dr. Jones, Dr. Ochoa
[2019-07-25 10:57] VITALS: O2SAT 97
[2019-07-25 11:51] LABS: Bedside Glucose 116 mg/dL (70-110)
[2019-07-25 16:55] LABS: Bedside Glucose 149 mg/dL (70-110)
[2019-07-25 19:53] VITALS: BP 121/64; PULSE 80; RESP 16; TEMP 36.9; O2SAT 92
[2019-07-25 20:56] LABS: Bedside Glucose 176 mg/dL (70-110)
[2019-07-25] MEDS: Atorvastatin Calcium 10 MG Tablet PO (21:34)
[2019-07-25] MEDS: Insulin Lispro 100 UNIT/ML INSULN.PEN SC (21:35)
[2019-07-25] MEDS: MELATONIN 3 MG TABLET PO (21:40)
[2019-07-26] MEDS: Acetaminophen 325 MG Tablet 650 MG PO (07:04)
[2019-07-26 07:06] LABS: Bedside Glucose 143 mg/dL (70-110)
[2019-07-26] MEDS: Aspirin 81 MG TAB.CHEW PO ×2 (08:27→17:09)
[2019-07-26] MEDS: Famotidine 20 MG Tablet PO (08:27)
[2019-07-26] MEDS: Senna/Docusate Sodium 1 Tablet 2 TABLET PO ×2 (08:27→20:30)
[2019-07-26] MEDS: Isosorbide Mononitrate 30 MG Tablet PO (08:27)
[2019-07-26] MEDS: Anastrozole 1 MG Tablet PO (08:27)
[2019-07-26] MEDS: metFORMIN HCl 500 MG Tablet 1000 MG PO ×2 (08:27→17:09)
[2019-07-26] MEDS: hydroCHLOROthiazide 25 MG Tablet PO (08:27)
[2019-07-26] MEDS: Atenolol 50 MG Tablet PO (08:27)
[2019-07-26] MEDS: Enoxaparin 40 MG/0.4 ML Syringe SC (08:27)
[2019-07-26] MEDS: Ramipril 2.5 MG Capsule PO (08:27)
[2019-07-26] MEDS: oxyCODONE 5 MG Tablet PO ×2 (08:32→20:28)
[2019-07-26 09:57] VITALS: BP 140/77; PULSE 80; RESP 16; TEMP 36.6; O2SAT 97
[2019-07-26 11:45] LABS: Bedside Glucose 110 mg/dL (70-110)
[2019-07-26 16:56] LABS: Bedside Glucose 105 mg/dL (70-110)
[2019-07-26 19:46] VITALS: BP 119/78; PULSE 79; RESP 18; TEMP 36.9; O2SAT 95
[2019-07-26 20:05] LABS: Bedside Glucose 151 mg/dL (70-110)
[2019-07-26] MEDS: Atorvastatin Calcium 10 MG Tablet PO (20:29)
[2019-07-26] MEDS: MELATONIN 3 MG TABLET PO (20:29)
[2019-07-26] MEDS: Insulin Lispro 100 UNIT/ML INSULN.PEN SC (20:30)
[2019-07-27 06:40] LABS: Bedside Glucose 131 mg/dL (70-110)
[2019-07-27 07:29] VITALS: BP 153/77; PULSE 73; RESP 16; TEMP 36.6; O2SAT 96
[2019-07-27] MEDS: Famotidine 20 MG Tablet PO (07:56)
[2019-07-27] MEDS: Senna/Docusate Sodium 1 Tablet 2 TABLET PO (07:56)
[2019-07-27] MEDS: Atenolol 50 MG Tablet PO (07:56)
[2019-07-27] MEDS: metFORMIN HCl 500 MG Tablet 1000 MG PO ×2 (07:57→17:21)
[2019-07-27] MEDS: Isosorbide Mononitrate 30 MG Tablet PO (07:57)
[2019-07-27] MEDS: Ramipril 2.5 MG Capsule PO (07:57)
[2019-07-27] MEDS: hydroCHLOROthiazide 25 MG Tablet PO (07:57)
[2019-07-27] MEDS: Aspirin 81 MG TAB.CHEW PO ×2 (07:57→17:21)
[2019-07-27] MEDS: Anastrozole 1 MG Tablet PO (07:57)
[2019-07-27] MEDS: Enoxaparin 40 MG/0.4 ML Syringe SC (07:57)
[2019-07-27 11:46] LABS: Bedside Glucose 110 mg/dL (70-110)
[2019-07-27 16:30] VITALS: O2SAT 95
[2019-07-27 16:31] LABS: Bedside Glucose 113 mg/dL (70-110)
--- NOTE | 2019-07-27 18:40 | NURSING ---
Reviewed and agree with GAME ENGINEER's FIMS and charting
--- NOTE | 2019-07-27 19:49 | PCM.PROGNOTE ---
Subjective: Mrs. Wolfe is a 73 YO F with a past medical history of PTCA/HOOD of the CX and mid diagonal #1, diabetes mellitus type 2, obesity, breast cancer (follows with Dr. Ochoa), BL mastectomy, hyperlipidemia and HTN who tripped and fell at home and landed on her R hip. She had severe pain and was unable to bear weight. She had plain x-ray, CT scan and an MRI of the right hip and results were consistent with an avulsion fracture of the right greater trochanter without intertrochanteric extension. She was seen in consultation by Dr. Jones who recommended pain control and weightbearing as tolerated. No surgical intervention was indicated. Patient lives by herself and had some difficulty using the walker. Physical therapy recommended rehab. She was agreeable and she was transferred to the rehab unit at [facility] on 07/24/2019. She is afebrile with stable vital signs. She is complaining of some mild constipation despite senna/docusate 2 tablets p.o. twice daily. She tells me that she is drinking plenty of water. She states her pain is adequately controlled. She denies nausea, vomiting, abdominal pain. Denies lightheadedness. Denies chest pain and shortness of breath. She was having problems sleeping but last night had melatonin 3 mg and slept very well. Objective: PHYSICAL EXAM: GENERAL: alert, oriented X 3, Cooperative, NAD, sitting in the recliner when I examined her. Has been doing her exercises in the chair by herself since there is no physical therapy on Sunday. ORAL: moist mucosa, no mucosal lesions NECK: No JVD, supple, trachea midline LUNGS: CTA, symmetric chest expansion....with BL mastectomies HEART: RRR, Normal S1 and S2, no rub, no gallop ABDOMEN: soft, NT, ND, BS present, no guarding with palpation EXTREMITIES: no edema, no cyanosis, no calf tenderness, intact neurovascular bundle to both LE's SKIN: No rashes, no breakdown NEUROLOGIC: no focal neurologic deficits PSYCH: appropriate, normal affect, pleasant - Physical Exam Vital Signs Temp Pulse Resp BP Pulse Ox 97.8 F 73 16 153/77 H 95 07/27/19 07:07/27/19 07:07/27/19 07:07/27/19 07:07/27/19 16:30 Oxygen Delivery Method Room Air Weight: 212 lb 4.882 oz Body Mass Index (BMI) 36.4 Finger Stick Blood Glucose 151 Intake and Output for Last 24 Hours 07/25/19 07/26/19 07/27/19 23:59 23:59 23:59 Intake Total 920 / 920 540 / 540 Output Total 200 / 200 Balance 720 / 720 540 / 540 POC Glucose 07/27/19 07/27/19 07/27/19 16:25 11:38 06:32 POC Glucose 113 H 110 131 H 07/26/19 20:00 POC Glucose 151 H Medical Necessity - Tobacco Use Smoking Status: Never smoker Assessment/Plan All Active Problems (Last Updated 07/24/19 @ 11:24 by Odilia Sarabia DO) Fall (Acute) Diabetes mellitus type 2 in obese (Acute) Fracture of hip, right, closed (Acute) Rash and nonspecific skin eruption (Resolved) Chest pain (Resolved) Dehiscence of incision (Resolved) Educational circumstance (Resolved) Impressions 1. Traumatic avulsion fracture of the right hip secondary to a fall with no intertrochanteric extension. Continue PT/OT. 2. Diabetes mellitus type 2-blood sugars are well controlled 3. Obstructive sleep apnea-compliant with CPAP 4. Obesity 5. Pulmonary hypertension 6. History of coronary artery disease with PTCA/HOOD in the past 7. Breast cancer with bilateral mastectomy-follows with Dr. Ochoa 8. Hyperlipidemia 9. [id number] 10. Constipation-we will discontinue current stool softener and start MiraLAX 17 g p.o. daily. Will give prune juice with breakfast in the a.m.
[2019-07-27 20:12] VITALS: BP 136/60; PULSE 78; RESP 16; TEMP 36.8; O2SAT 95
[2019-07-27] MEDS: MELATONIN 3 MG TABLET PO (20:37)
[2019-07-27] MEDS: oxyCODONE 5 MG Tablet PO (20:38)
[2019-07-27] MEDS: Insulin Lispro 100 UNIT/ML INSULN.PEN SC (20:39)
[2019-07-27] MEDS: Atorvastatin Calcium 10 MG Tablet PO (20:39)
--- NOTE | 2019-07-27 21:42 | NURSING ---
Dr Sarabia in room to see pt and answer pt questions.
[2019-07-27 22:00] VITALS: PULSE 78; RESP 16; O2SAT 95
[2019-07-27 23:01] LABS: Bedside Glucose 161 mg/dL (70-110)
[2019-07-28] MEDS: oxyCODONE 5 MG Tablet PO ×2 (05:41→14:10)
[2019-07-28 07:10] LABS: Bedside Glucose 136 mg/dL (70-110)
[2019-07-28 07:25] VITALS: BP 137/82; PULSE 65; RESP 17; TEMP 36.6; O2SAT 99
[2019-07-28] MEDS: Isosorbide Mononitrate 30 MG Tablet PO (07:58)
[2019-07-28] MEDS: Aspirin 81 MG TAB.CHEW PO ×2 (07:58→17:18)
[2019-07-28] MEDS: Ramipril 2.5 MG Capsule PO (07:58)
[2019-07-28] MEDS: Atenolol 50 MG Tablet PO (07:58)
[2019-07-28] MEDS: hydroCHLOROthiazide 25 MG Tablet PO (07:58)
[2019-07-28] MEDS: Famotidine 20 MG Tablet PO (07:58)
[2019-07-28] MEDS: Enoxaparin 40 MG/0.4 ML Syringe SC (07:58)
[2019-07-28] MEDS: metFORMIN HCl 500 MG Tablet 1000 MG PO ×2 (07:58→17:18)
[2019-07-28] MEDS: Anastrozole 1 MG Tablet PO (07:58)
[2019-07-28 11:55] LABS: Bedside Glucose 84 mg/dL (70-110)
[2019-07-28 17:16] LABS: Bedside Glucose 113 mg/dL (70-110)
[2019-07-28 19:21] VITALS: BP 144/74; PULSE 67; RESP 16; TEMP 36.4; O2SAT 98
[2019-07-28 21:00] VITALS: BP 146/71; PULSE 74; RESP 16; TEMP 36.8; O2SAT 96
[2019-07-28] MEDS: Atorvastatin Calcium 10 MG Tablet PO (21:24)
[2019-07-28] MEDS: MELATONIN 3 MG TABLET PO (21:24)
[2019-07-28 21:35] LABS: Bedside Glucose 125 mg/dL (70-110)
--- NOTE | 2019-07-29 03:23 | NURSING ---
Reviewed and agree with TRANSLATION DIRECTOR documention and FIMs charting.
[2019-07-29] MEDS: oxyCODONE 5 MG Tablet PO (05:18)
[2019-07-29 07:10] LABS: Bedside Glucose 146 mg/dL (70-110)
[2019-07-29 07:24] VITALS: BP 139/71; PULSE 65; RESP 18; TEMP 36.8; O2SAT 98
--- NOTE | 2019-07-29 09:02 | PCM.PN.NEU ---
Subjective: Per nursing, no issues overnight. Patient pain is well controlled and is tolerating therapies well. Denies further questions or concerns. - Physical Exam General: Alert, Oriented x3, Cooperative HEENT: Atraumatic, PERRLA Oral: Moist Mucosa Neck: Supple, No JVD Lungs: Clear to auscultation, Normal air movement Cardiovascular: Regular rate, Regular Rhythm Abdomen: Bowel Sounds Present, Soft, Non Tender Extremities: No clubbing, No cyanosis, No edema Skin: - - ecchymotic area right hip improving Neurological: Cranial nerves II-XII grossly intact, Deep Tendon Reflexes 2+/4 and Symmetrical, Motor Exam 5/5 strength throughout Psych/Mental Status: Normal Affect, Appropriate, Alert and oriented to time, place, person, mood and affect Vital Signs Temp Pulse Resp BP Pulse Ox 98.3 F 65 18 139/71 H 98 07/29/19 07:24 07/29/19 07:24 07/29/19 07:24 07/29/19 07:24 07/29/19 07:24 Oxygen Delivery Method Room Air Weight: 96.3 kg Body Mass Index (BMI) 36.4 Finger Stick Blood Glucose 151 Intake and Output for Last 24 Hours 07/27/19 07/28/19 07/29/19 23:59 23:59 23:59 Intake Total 240 / 240 240 / 240 Balance 240 / 240 240 / 240 POC Glucose 07/29/19 07/28/19 07/28/19 06:58 20:58 17:04 POC Glucose 146 H 125 H 113 H 07/28/19 11:48 POC Glucose 84 Medical Necessity - Tobacco Use Smoking Status: Never smoker Assessment/Plan All Active Problems (Last Updated 07/24/19 @ 11:24 by Odilia Sarabia DO) Fall (Acute) Diabetes mellitus type 2 in obese (Acute) Fracture of hip, right, closed (Acute) Rash and nonspecific skin eruption (Resolved) Chest pain (Resolved) Dehiscence of incision (Resolved) Educational circumstance (Resolved) The patient is a 73 year old F with PMH of HTN, ZITA, DM type II, HLD, Osteoporosis, Chronic nonrheumatic tricuspid insufficiency, nonrheumatic mitral valve regurgitation, atherosclerosis heart disease with HX of stent placement x3, HX of breast CA, post bilateral mastectomy in 2016, with last chemotherapy in March [address] Ochoa, admitted to [facility] on 07/24/19 for debility secondary to right trochanter fx-nonsurgical for greater than 3 hours of therapy per day with a goal of returning home at or near her prior level of independence. Patient was cleaning her porch rail off to hang sheets on them, she tripped over a porch chair and fell onto her right hip. She denies hitting head. X-ray of right hip and pelvis showed a nondisplaced avulsion fx of the right greater trochanter. CT of right femur showed a comminute nondisplaced avulsion fx of the greater trochanter ot the proximal right femur, without extension into intertochanteric region. MRI of right hip showed comminuted avulsed right greater trochanter fx without additional extension with high high-grade partial-thickness right gluteus medius/minimus tendon tears, Soft tissue swelling, greater trochanteric bursitis and hip joint effusion, Osteoarthritic changes with labral degeneration. Orthopedic surgeon Dr. Jones was consulted, no surgery required, RLE WBAT, and pain control. Patient lives alone in a one level house with 1 step to enter. Patient was independent with all ADLs, mobility and driving prior to hospitalization. Plan - PT for mobility - OT for ADLs - Analgesics - Right greater trochanter- non-surgical- WBAT, pain control - HTN on atenolol, Hctz, isosorbide mononitrate, Altace - DM type II on metformin, humalog S.C. monitor glucose AC&HS - HLD on lipitor - Osteoporosis on Vitamin D and Boniva - ZITA on Bipap - CAD on asa - Breast CA- post bilateral mastectomy by Dr. Otto, last chemotherapy March [address] Ochoa - currently on Arimidex - DVT prophylaxis - lovenox, knee high davis hose - Medical management per hospitalist- consult - Bowel protocol - Fall precautions - F/U with PCP, Dr. Jones, Dr. Ochoa
[2019-07-29] MEDS: Atenolol 50 MG Tablet PO (09:25)
[2019-07-29] MEDS: Anastrozole 1 MG Tablet PO (09:25)
[2019-07-29] MEDS: Famotidine 20 MG Tablet PO (09:25)
[2019-07-29] MEDS: hydroCHLOROthiazide 25 MG Tablet PO (09:25)
[2019-07-29] MEDS: Polyethylene Glycol 3350 17 GM PACKET PO (09:25)
[2019-07-29] MEDS: Ramipril 2.5 MG Capsule PO (09:25)
[2019-07-29] MEDS: Isosorbide Mononitrate 30 MG Tablet PO (09:25)
[2019-07-29] MEDS: Enoxaparin 40 MG/0.4 ML Syringe SC (09:26)
[2019-07-29] MEDS: metFORMIN HCl 500 MG Tablet 1000 MG PO ×2 (09:26→17:32)
[2019-07-29] MEDS: Aspirin 81 MG TAB.CHEW PO ×2 (09:26→17:32)
[2019-07-29 11:46] LABS: Bedside Glucose 141 mg/dL (70-110)
--- NOTE | 2019-07-29 12:05 | CASEMGMT ---
Social Work IDT met with patient and daughter for Team Meeting. Patient doing well in therapy. SBA assist for transfers, walking long distances on different surfaces with FWW. SBA for ADLs. Pt ready to DC home tomorrow. IDT agreed. Pt good at completing home exercises - will let things heal and PCP or ortho can refer to outpatient therapy at f/u appt after DC. No DC needs. Plan: DC home alone with family support 07/30 with no DC needs. FRANKY Hampton ATHLETIC COACH
--- NOTE | 2019-07-29 14:48 | DCINST_ITS ---
- Discharge Diagnoses Reason(s) for Visit for Discharge Instructions: Debility secondary to right greater trochanter fx-(non-surgical) You will use the following diet at home:: Calorie/Carbohydrate Controlled (specify 1200, 1400, etc) - 1800 Your food should be the consistency of: Regular Your liquids should be the consistency of: Regular/Thin Discharge Activity: Return to Normal Activity, May Not Drive, May Shower, Use Walker Weight Bearing Status: Weight bearing as tolerated - Right lower extremity Call your doctor if you observe: Fever of 101 or Higher, Coldness, Increased Pain, Numbness or Tingling, Change in Color, Inability to urinate, Inability to have a bowel movement, Shortness of breath, Dizziness, Fainting spells, Swelling in the ankles, Chest pain, Prolonged hiccoughing, Increased palpitations (irregular heartbeat), Calf discomfort, Uncontrolled pain Allergies/Adverse Reactions: Allergies iodine Allergy (Severe, Verified 07/24/19 16:19) Rash povidone-iodine [From Betadine] Adverse Reaction (Severe, Verified 07/24/19 16:19) Itching pravastatin sodium [From Pravachol] Adverse Reaction (Severe, Verified 07/24/19 16:19) LEG CRAMPS rosuvastatin calcium [From Crestor] Adverse Reaction (Severe, Verified 07/24/19 16:19) LEG CRAMPS simvastatin Adverse Reaction (Severe, Verified 07/24/19 16:19) LEG CRAMPS soap [From Betadine] Adverse Reaction (Severe, Verified 07/24/19 16:19) Itching Medications to take at Discharge Ergocalciferol [Vitamin D] 50,000 unit PO MOTH 05/26/15 Ibandronate Sodium [Boniva] 150 mg PO Q30D 11/23/15 Anastrozole [Arimidex] 1 mg PO DAILY 07/24/19 Nitroglycerin (INPATIENT USE) [Nitrostat] 0.4 mg SUBLINGUAL Q5M PRN tab.subl 07/24/19 Acetaminophen [Tylenol Tablet] 650 mg PO Q6H PRN PRN tab 07/29/19 Aspirin [Aspirin, Baby] 81 mg PO BIDCM tab.chew 07/29/19 Atenolol [Tenormin (beta leonard)] 50 mg PO DAILY tab 07/29/19 Atorvastatin Calcium [Lipitor] 10 mg PO QHS tab 07/29/19 Hydrochlorothiazide [Hctz] 25 mg PO DAILY tab 07/29/19 Isosorbide Mononitrate [Imdur] 30 mg PO DAILY tab 07/29/19 Melatonin 3 mg PO QHS tab 07/29/19 Polyethylene Glycol 3350 [Miralax] 17 gm PO DAILY packet 07/29/19 Potassium Chloride [K-Dur] 20 meq PO BIDCM tab 07/29/19 Ramipril [Altace] 2.5 mg PO DAILY cap 07/29/19 metFORMIN HCl [Glucophage] 1,000 mg PO BIDCM tab 07/29/19 Primary Care Physician: Jb Cast MD [Primary Care Provider] - Test Results: Test results from this visit will be discussed in further detail at your follow- up appointment, if applicable. Please Follow Up With: Jb Cast MD When: call to schedule at discharge Please Follow Up With: Jessica Ochoa MD - [phone] When: call to schedule at discharge Please Follow Up With: Jenny Jones DO - [phone] When: call to schedule at discharge Proposed Discharge Date: 07/30/19
[2019-07-29 17:01] LABS: Bedside Glucose 106 mg/dL (70-110)
[2019-07-29 18:47] VITALS: BP 138/70; PULSE 73; RESP 16; TEMP 36.5; O2SAT 96
[2019-07-29] MEDS: Atorvastatin Calcium 10 MG Tablet PO (21:27)
[2019-07-29] MEDS: MELATONIN 3 MG TABLET PO (21:27)
[2019-07-29] MEDS: Acetaminophen 325 MG Tablet 650 MG PO (21:27)
[2019-07-29 22:00] VITALS: PULSE 73; RESP 16; O2SAT 96
[2019-07-29 22:25] LABS: Bedside Glucose 90 mg/dL (70-110)
[2019-07-30 06:35] LABS: Bedside Glucose 125 mg/dL (70-110)
[2019-07-30 07:03] VITALS: BP 130/73; PULSE 62; RESP 17; TEMP 36.9; O2SAT 95
[2019-07-30] MEDS: Famotidine 20 MG Tablet PO (07:39)
[2019-07-30] MEDS: hydroCHLOROthiazide 25 MG Tablet PO (07:40)
[2019-07-30] MEDS: Aspirin 81 MG TAB.CHEW PO (07:40)
[2019-07-30] MEDS: Isosorbide Mononitrate 30 MG Tablet PO (07:40)
[2019-07-30] MEDS: metFORMIN HCl 500 MG Tablet 1000 MG PO (07:40)
[2019-07-30] MEDS: Ramipril 2.5 MG Capsule PO (07:40)
[2019-07-30] MEDS: Anastrozole 1 MG Tablet PO (07:40)
[2019-07-30] MEDS: Atenolol 50 MG Tablet PO (07:41)
[2019-07-30 10:15] VITALS: BP 130/73; PULSE 62; RESP 17; TEMP 36.9; O2SAT 95
--- NOTE | 2019-07-30 10:15 | NURSING ---
Discharged to home, daughter and patient verbalized understanding to discharge instructions.
--- NOTE | 2019-07-30 11:00 | DS.PCM_ITS ---
Rehab Discharge Summary DATE OF ADMISSION: 07/24/19 DATE OF DISCHARGE: 07/30/19 - Rehab Diagnosis Debility secondary to Right greater trochanter fx - non-surgical Subjective: Patient tolerated therapies well and is pain to right hip is described as mild, intermittent, dull ache. Prn tylenol effective, denies need for RX for oxy-ir at discharge. Patient is ready to be discharged home today on 07/30/19. - Physical Exam General: Alert, Oriented x3, Cooperative HEENT: Atraumatic, PERRLA Oral: Moist Mucosa Neck: Supple, No JVD Lungs: Clear to auscultation, Normal air movement Cardiovascular: Regular rate, Regular Rhythm Abdomen: Bowel Sounds Present, Soft, Non Tender Extremities: No clubbing, No cyanosis, No edema Skin: - - ecchymotic area right hip improving Neurological: Cranial nerves II-XII grossly intact, Deep Tendon Reflexes 2+/4 and Symmetrical, Motor Exam 5/5 strength throughout Psych/Mental Status: Normal Affect, Appropriate, Alert and oriented to time, place, person, mood and affect Vital Signs Temp Pulse Resp BP Pulse Ox 98.4 F 62 17 130/73 H 95 07/30/19 10:15 07/30/19 10:15 07/30/19 10:15 07/30/19 10:15 07/30/19 10:15 Oxygen Delivery Method Room Air Weight: 95.4 kg Body Mass Index (BMI) 36.4 Finger Stick Blood Glucose 151 Intake and Output for Last 24 Hours 07/28/19 07/29/19 07/30/19 23:59 23:59 23:59 Intake Total 240 / 240 880 / 880 180 / 180 Balance 240 / 240 880 / 880 180 / 180 POC Glucose 07/30/19 07/29/19 07/29/19 06:15 21:25 16:51 POC Glucose 125 H 90 106 07/29/19 11:38 POC Glucose 141 H Discharge Diet: 1800 Calorie Control Diet Discharge Activity: Return to Normal Activity, May Not Drive, May Shower, Use Walker Weight Bearing Status: Weight bearing as tolerated - Right lower extremity Call your doctor if you observe: Fever of 101 or Higher, Coldness, Increased Pain, Numbness or Tingling, Change in Color, Inability to urinate, Inability to have a bowel movement, Shortness of breath, Dizziness, Fainting spells, Swelling in the ankles, Chest pain, Prolonged hiccoughing, Increased palpitations (irregular heartbeat), Calf discomfort, Uncontrolled pain Home Medications: Medications to take at Discharge Ergocalciferol [Vitamin D] 50,000 unit PO MOTH 05/26/15 Ibandronate Sodium [Boniva] 150 mg PO Q30D 11/23/15 Anastrozole [Arimidex] 1 mg PO DAILY 07/24/19 Nitroglycerin (INPATIENT USE) [Nitrostat] 0.4 mg SUBLINGUAL Q5M PRN tab.subl 07/24/19 Acetaminophen [Tylenol Tablet] 650 mg PO Q6H PRN PRN tab 07/29/19 Aspirin [Aspirin, Baby] 81 mg PO BIDCM tab.chew 07/29/19 Atenolol [Tenormin (beta leonard)] 50 mg PO DAILY tab 07/29/19 Atorvastatin Calcium [Lipitor] 10 mg PO QHS tab 07/29/19 Hydrochlorothiazide [Hctz] 25 mg PO DAILY tab 07/29/19 Isosorbide Mononitrate [Imdur] 30 mg PO DAILY tab 07/29/19 Melatonin 3 mg PO QHS tab 07/29/19 Polyethylene Glycol 3350 [Miralax] 17 gm PO DAILY packet 07/29/19 Potassium Chloride [K-Dur] 20 meq PO BIDCM tab 07/29/19 Ramipril [Altace] 2.5 mg PO DAILY cap 07/29/19 metFORMIN HCl [Glucophage] 1,000 mg PO BIDCM tab 07/29/19 Primary Care Physician: Jb Cast MD [Primary Care Provider] - Please Follow Up With: Jb Cast MD When: call to schedule at discharge Please Follow Up With: Jessica Ochoa MD - [phone] When: call to schedule at discharge Please Follow Up With: Jenny Jones DO - [phone] When: call to schedule at discharge Disposition: Home Patient Condition:: Stable Rehab Course The patient is a 73 year old F with PMH of HTN, ZITA, DM type II, HLD, Osteoporosis, Chronic nonrheumatic tricuspid insufficiency, nonrheumatic mitral valve regurgitation, atherosclerosis heart disease with HX of stent placement x3, HX of breast CA, post bilateral mastectomy in 2017, with last chemotherapy in March [address] Ochoa, admitted to [facility] on 07/24/19 for debility secondary to right trochanter fx-nonsurgical for greater than 3 hours of therapy per day with a goal of returning home at or near her prior level of independence. Patient was cleaning her porch rail off to hang sheets on them, she tripped over a porch chair and fell onto her right hip. She denies hitting head. X-ray of right hip and pelvis showed a nondisplaced avulsion fx of the right greater trochanter. CT of right femur showed a comminute nondisplaced avulsion fx of the greater trochanter to the proximal right femur, without extension into intertochanteric region. MRI of right hip showed comminuted avulsed right greater trochanter fx without additional extension with high high-grade partial- thickness right gluteus medius/minimus tendon tears, Soft tissue swelling, greater trochanteric bursitis and hip joint effusion, Osteoarthritic changes with labral degeneration. Orthopedic surgeon Dr. Jones was consulted, no surgery required, RLE WBAT, and pain control. Patient lives alone in a one level house with 1 step to enter. Patient was independent with all ADLs, mobility and driving prior to hospitalization. During IP RU course, was uncomplicated. Patient increased strength and mobility to return home, pain is well controlled with Tylenol as needed. Patient will be discharged home on 07/30/19 with no therapies recommendations at this time. Patient to F/U with PCP, Dr. Jones, and Dr. Ochoa. Meaningful Use Info Meaningful Use Diagnoses (Choose all that apply): None applicable
== END 2019-07-30 10:15 | disposition home or self-care (01) | DRG 561 ==
PROVIDERS: Internal Medicine; Nurse Practitioner Family; Admitting Provider Psychiatry & Neurology Neurology; Family Provider Family Medicine; PCP Family Medicine; Referring Provider Psychiatry & Neurology Neurology; Visit Provider Internal Medicine
DX: S72.114D Nondisplaced fracture of greater trochanter of right femur, subsequent encounter for closed fracture with routine healing (principal); W01.0XXD Fall on same level from slipping, tripping and stumbling without subsequent striking against object, subsequent encounter; G47.33 Obstructive sleep apnea (adult) (pediatric); E11.9 Type 2 diabetes mellitus without complications; E78.5 Hyperlipidemia, unspecified; I25.10 Atherosclerotic heart disease of native coronary artery without angina pectoris; I10 Essential (primary) hypertension; Z95.5 Presence of coronary angioplasty implant and graft; Z85.3 Personal history of malignant neoplasm of breast; E66.9 Obesity, unspecified; Z68.36 Body mass index [BMI] 36.0-36.9, adult; Z86.718 Personal history of other venous thrombosis and embolism; I27.20 Pulmonary hypertension, unspecified
CPT/HCPCS: 36415; 80048; 82962; 85027; 97110; 97116; 97162; 97166; 97530; 97535; 97802

== ENCOUNTER → 2019-08-14 06:32 | Outpatient (CLI) | payer MEDICARE, OTHER, SELFPAY ==
[2019-07-24 16:14] VITALS: BMI 36.4
[2019-08-14 07:38] LABS: AST(SGOT) 11 U/L (15-37); Alanine Aminotransfer ALT/SGPT 19 U/L (13-56); Albumin, Serum 4.1 g/dL (3.2-5.0); Alkaline Phosphatase 154 U/L (45-117); Cholesterol 159 mg/dL (200); Globulin 4.2 g/dL (2.2-4.2); High Density Lipoprotein 53 mg/dL; Protein, Total 8.3 g/dL (6.4-8.2); Triglycerides 231 mg/dL; Very Low Density Lipoprotein 46 mg/dL (5-40)
== END ==
PROVIDERS: Family Provider Family Medicine; PCP Family Medicine; Referring Provider Physician Assistant Medical; Visit Provider Physician Assistant Medical
DX: E78.5 Hyperlipidemia, unspecified (principal)
CPT/HCPCS: 36415; 80061; 80076

== ENCOUNTER → 2019-08-19 09:42 | Outpatient (CLI) | payer MEDICARE, OTHER, SELFPAY ==
[2019-08-19 09:00] VITALS: BMI 36.8
--- NOTE | 2019-08-19 09:44 | RAD_ITS ---
STUDY: X-RAY - PELVIS AND RIGHT HIP REASON FOR EXAM: Hip pain, injury. TECHNIQUE: 2 views of the pelvis and hip. COMPARISON: Radiographs 07/15/2019. FINDINGS: There are small pelvic phleboliths. There is enthesopathy of the iliac wings bilaterally. Normal bilateral sacroiliac joints and visualized sacrum. Normal bilateral superior and inferior pubic rami. Normal pubic symphysis. Normal bilateral ischial tuberosities. There is avulsion fracture of the right greater trochanter with increased resorption at the fracture site indicating healing. Normal acetabulum. Normal hip joint. RAD/HIP, UNI W/ Pelvis 2-3 Views IMPRESSION: Avulsion fracture of the right greater trochanter with increased resorption at the fracture site. Electronically Signed: Clinton Cho MD at 12:41 EDT Tel , Service support ,
== END ==
PROVIDERS: Family Provider Family Medicine; PCP Family Medicine; Referring Provider Orthopaedic Surgery; Visit Provider Orthopaedic Surgery
DX: M25.551 Pain in right hip (principal)
CPT/HCPCS: 73502

== ENCOUNTER → 2019-10-29 09:09 | Outpatient (CLI) | payer MEDICARE, OTHER, SELFPAY ==
[2019-09-24 13:03] VITALS: BMI 37.5
--- NOTE | 2019-10-29 09:15 | RAD_ITS ---
STUDY: X-RAY - LEFT HAND REASON FOR EXAM: Female, 74 years old. Arthritis, pain and swelling of fingers TECHNIQUE: 3 view(s) of the hand. COMPARISON: None. FINDINGS: Normal radiocarpal articulation. Normal distal radioulnar joint. Normal visualized carpal bones. Normal carpal articulations There are severe degenerative changes of the first metacarpal greater multangular joint. Normal second through fifth carpometacarpal joints. Normal metacarpi. Normal metacarpophalangeal joint of the thumb. Normal interphalangeal joint of the thumb. Normal proximal and distal phalanges of the thumb. Normal metacarpophalangeal joints of the second through fifth fingers. There are mild degenerative changes of the second and third DIP joints. Normal phalanges of the second through fifth fingers. The soft tissue structures are unremarkable. RAD/Hand Min 3 Views IMPRESSION: Severe arthritic changes of the first metacarpal greater multangular joint. Mild arthritic changes of the second and third DIP joints. Electronically Signed: Manjit Landon MD at 18:53 EST , Service support ,
== END ==
PROVIDERS: Family Provider Family Medicine; PCP Family Medicine; Referring Provider Family Medicine; Visit Provider Family Medicine
DX: M19.042 Primary osteoarthritis, left hand (principal)
CPT/HCPCS: 73130

== ENCOUNTER → 2020-04-05 12:50 | Outpatient (CLI) | payer MEDICARE, OTHER, SELFPAY ==
[2020-04-05 12:48] VITALS: BMI 38.2
--- NOTE | 2020-04-05 12:50 | MASS_PTH ---
PATIENT: GABBY TOWNSEND LOC: [facility] U#:[id number] AGE/SX: 80/F ROOM: RE04/05/[address]: Dr. Alexandre Otto MD : 1945 BED: DIS: SPEC #: [id number] RECD: 04/05/20 14:07 STATUS: LUZ JUDY #: [id number] RENATA: 04/05/20 12:[address]: Alexandre Otto DEPT: SURGICAL PATHOLOGY RECD BY: Cristine Elizabeth ENTERED: 04/06/20 08:57 SP TYPE: Mass OTHR DR: Dr. Jb Cast MD Tissues: Chest wall, NOS Procedures: Surgery Specimen Level IV HEADER OPERATION: Left chest wall biopsy PRE-OP DIAGNOSIS: Left chest mass TISSUE SUBMITTED: Left chest wall MICROSCOPIC DIAGNOSIS Left chest wall mass, core biopsy: Fragments of fibroadipose tissue with fat necrosis, chronic inflammation, histiocytic reaction and dystrophic calcifications. Negative for malignancy. SJ:tori 04/07/20 COMMENT Please make reference to previous specimen ([id number]) right breast and additional lymph node tissue, mastectomy and sentinel lymph node biopsy with diagnosis of invasive ductal carcinoma, focal ductal carcinoma in situ and one sentinel lymph node tissue negative for metastatic carcinoma and left breast mastectomy with diagnosis of invasive ductal carcinoma and focal ductal carcinoma in situ. MICROSCOPIC DESCRIPTION Slides are reviewed. GROSS DESCRIPTION Received in fixative is one container labeled with the patient name and designated left chest wall. The specimen consists of multiple elongated fragments of coreas-yellow fibroadipose tissue that in aggregate measure 1.5 x 0.5 x 0.1 cm. The entire specimen is submitted in one cassette. / JACK:tori 04/06/20 TC:5 CPT: 25987
== END ==
PROVIDERS: PCP Family Medicine; Referring Provider Surgery; Visit Provider Surgery
DX: R22.2 Localized swelling, mass and lump, trunk (principal)
CPT/HCPCS: 88305

== ENCOUNTER → 2020-04-26 09:31 | Outpatient (CLI) | payer MEDICARE, OTHER, SELFPAY ==
[2020-04-05 12:48] VITALS: BMI 38.2
[2020-04-26 13:02] LABS: AST(SGOT) 16 U/L (15-37); Alanine Aminotransfer ALT/SGPT 20 U/L (13-56); Albumin, Serum 3.8 g/dL (3.2-5.0); Alkaline Phosphatase 76 U/L (45-117); Bilirubin, Direct 0.18 mg/dL (0.00-0.30); Cholesterol 167 mg/dL (200); Globulin 3.9 g/dL (2.2-4.2); High Density Lipoprotein 47 mg/dL; Protein, Total 7.7 g/dL (6.4-8.2); Triglycerides 204 mg/dL; Very Low Density Lipoprotein 41 mg/dL (5-40)
== END ==
PROVIDERS: PCP Family Medicine; Referring Provider Internal Medicine Cardiovascular Disease; Visit Provider Internal Medicine Cardiovascular Disease
DX: E78.00 Pure hypercholesterolemia, unspecified (principal)
CPT/HCPCS: 36415; 80061; 80076

== ENCOUNTER → 2020-07-27 08:57 | Outpatient (CLI) | payer MEDICARE, OTHER, SELFPAY ==
[2020-07-07 13:22] VITALS: BMI 38.2
--- NOTE | 2020-07-27 09:07 | BD_ITS ---
STUDY: DUAL ENERGY X-RAY ABSORPTIOMETRY / DXA REASON FOR EXAM: Female, 74 years old. 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 COMPARISON: Comparison is made with prior study dated 07/23/2018. FINDINGS: Lumbar Spine (L1-L4): g/cm2 (1.279) / T-score (0.9) / Z-score (2.7) Findings are suggestive of normal bone density with a low fracture risk. Left Femur Total: g/cm2 (1.003) / T-score (0.0) / Z-score (1.6) Left Femoral Neck: g/cm2 (0.854) / T-score (-1.3) / Z-score (0.5) The T-Scores on the most recent prior examination were: Lumbar Spine (L1-L4): There has been worsening of bone density since the previous examination. Left Femur Total: which represents a worsening of 3%. BD/Dexa Bone Density Study IMPRESSION: The patient is considered osteopenic as outlined below according to World Edd Organization (WHO) criteria with a low fracture risk. There has been worsening of bone density since the previous examination. Reference Information: The T-score is the number of standard deviations above or below the standard which is normal for young adults at their peak bone mineral density. The World Health Organization (WHO) interprets the T-scores as follows: Above -1 Normal bone density Between -1 and -2.5 Osteopenia Equal to / or below -2.5 Osteoporosis As a practical clinical guideline, osteopenia may be graded as follows: Mild -1 through -1.5 Moderate -1.6 through -2.0 Severe -2.1 through -2.4 The Z-score is the number of standard deviations above or below age-matched controls. A Z-score of less than -1.5 would be considered abnormal. References: 1. NIH Osteoporosis and Related Bone Diseases http://www.osteo.org 2. International Society for Clinical Densitometry http://www.iscd.org 3. National Osteoporosis Foundation http://www.nof.org Electronically Signed: Gabriel Tabor, at 14:50 EDT , Service support ,
== END ==
PROVIDERS: PCP Family Medicine; Referring Provider Internal Medicine Hematology & Oncology; Visit Provider Internal Medicine Hematology & Oncology
DX: C50.911 Malignant neoplasm of unspecified site of right female breast (principal); C50.912 Malignant neoplasm of unspecified site of left female breast; Z78.0 Asymptomatic menopausal state; Z92.29 Personal history of other drug therapy
CPT/HCPCS: 77080

== ENCOUNTER → 2020-09-27 14:54 | Outpatient (CLI) | payer MEDICARE, OTHER, SELFPAY ==
[2020-07-07 13:22] VITALS: BMI 38.2
--- NOTE | 2020-09-27 15:00 | RAD_ITS ---
STUDY: X-RAY LEFT FOOT, FIRST TOE REASON FOR EXAM: Female, 74 years old. Left 1st toe pain after stubbing injury TECHNIQUE: 3 view(s) of the toe were obtained. COMPARISON: Left foot 10/29/2012 FINDINGS: Normal visualized metatarsus. Normal metatarsophalangeal (M.T.P) joint. Normal interphalangeal joints. Normal phalanges and interphalangeal joints. Deformity of the second proximal phalanx distal metaphysis not visualized on previous examination without acute cortical disruption. The soft tissue structures are unremarkable. RAD/Toe(s) Min 2 Views IMPRESSION: There is no acute displaced fracture or dislocation. Remote injury second proximal phalanx. Electronically Signed: Sugey Adorno MD at 5:36 EST , Service support ,
== END ==
PROVIDERS: PCP Family Medicine; Referring Provider Family Medicine; Visit Provider Family Medicine
DX: S92.912A Unspecified fracture of left toe(s), initial encounter for closed fracture (principal); X58.XXXA Exposure to other specified factors, initial encounter
CPT/HCPCS: 73660

== ENCOUNTER → 2020-11-17 09:37 | Outpatient (CLI) | payer MEDICARE, OTHER, SELFPAY ==
[2020-07-07 13:22] VITALS: BMI 38.2
--- NOTE | 2020-11-17 09:42 | ECHOD_ITS ---
Reason For Study: PHTN Procedure This was a 2D Doppler, Color Flow transthoracic echocardiogram. The study was technically difficult. Due to bilateral mastectomy. Exam performed in department. Left Ventricle Normal LV size. Left ventricular systolic function is normal. The estimated ejection fraction is 65 %. The global longitudinal strain = -20 % (normal). Diastolic function is indeterminate. No regional wall motion abnormalities noted. Right Ventricle Normal RV size. Normal systolic function. Atria The left atrium is mildly enlarged. Normal right atrium. No doppler evidence for ASD. Mitral Valve There is mild mitral annular calcification. Extension of the mitral annular calcification on the base of the posterior mitral valve leaflet. Trivial mitral valve insufficiency. Tricuspid Valve Normal tricuspid valve. Trivial tricuspid valve insufficiency. Right ventricular systolic pressure estimated to be 32 mmHg. Aortic Valve Trisinus/trileaflet aortic valve. Mild focal aortic valve calcification. Pulmonic Valve The pulmonic valve is not well visualized. Mild (1+) pulmonic valve insufficiency. Great Vessels Normal sized aortic root. Pericardium/Pleural No pericardial effusion. MMode/2D Measurements & Calculations LVIDd: 4.9 cm IVSd: 1.2 cm Ao root diam: 3.6 cm LVIDs: 3.3 cm LVPWd: 1.0 cm RVDd: 3.6 cm FS: 32.6 % LAV(MOD-bp): 75.4 ml LA A4 area: 21.0 cm2 LA dimension(2D): 4.3 cm LAV(MOD-bp) Indexed: 36.5 ml/m2 LAV(MOD-sp2): 79.0 ml LAV(MOD-sp4): 65.6 ml RA A4 area: 17.7 cm2 Time Measurements MV dec time: 0.31 sec Doppler Measurements & Calculations MV E max lc: 66.3 cm/sec Lat Peak E' Lc: 7.7 cm/sec Med Peak E' Lc: 4.9 cm/sec MV A max lc: 81.8 cm/sec E/E' lat: 8.6 E/E' med: 13.4 MV E/A: 0.81 Ao V2 max: 163.7 cm/sec LV V1 max: 106.1 cm/sec PA V2 max: 93.4 cm/sec Ao max P.7 mmHg LV V1 max P.5 mmHg TR max lc: 269.4 cm/sec TR max P.1 mmHg Interpretation Summary The study was technically difficult. Left ventricular systolic function is normal. The estimated ejection fraction is 65 %. The global longitudinal strain = -20 % (normal). The left atrium is mildly enlarged. There is mild mitral annular calcification. Extension of the mitral annular calcification on the base of the posterior mitral valve leaflet. Trivial mitral valve insufficiency. Trivial tricuspid valve insufficiency. Mild focal aortic valve calcification. Mild (1+) pulmonic valve insufficiency. Right ventricular systolic pressure estimated to be 32 mmHg. Diastolic function is indeterminate. Ordering Physician: Yunior^Alexandre^Diana^^ Referring Physician: Jb Cast Performed By: Mary Lou Fuchs, VI, RVT
== END ==
PROVIDERS: PCP Family Medicine; Referring Provider Internal Medicine Pulmonary Disease; Visit Provider Internal Medicine Pulmonary Disease
DX: I27.0 Primary pulmonary hypertension (principal)
CPT/HCPCS: 93306

== ENCOUNTER → 2020-11-24 11:57 | Outpatient (CLI) | payer MEDICARE, OTHER, SELFPAY ==
[2020-07-07 13:22] VITALS: BMI 38.2
== END ==
PROVIDERS: PCP Family Medicine; Visit Provider Family Medicine
DX: Z20.828 Contact with and (suspected) exposure to other viral communicable diseases (principal)
CPT/HCPCS: 87635; U0003

== ENCOUNTER → 2020-12-29 11:12 | Outpatient (CLI) | payer MEDICARE, OTHER, SELFPAY ==
[2020-12-29 10:16] VITALS: BMI 37.9
[2020-12-29 13:13] LABS: AST(SGOT) 14 U/L (15-37); Alanine Aminotransfer ALT/SGPT 21 U/L (13-56); Albumin, Serum 3.8 g/dL (3.2-5.0); Alkaline Phosphatase 86 U/L (45-117); Bilirubin, Direct 0.11 mg/dL (0.00-0.30); Cholesterol 187 mg/dL (200); High Density Lipoprotein 56 mg/dL; Protein, Total 7.8 g/dL (6.4-8.2); Triglycerides 180 mg/dL; Very Low Density Lipoprotein 36 mg/dL (5-40)
== END ==
PROVIDERS: PCP Family Medicine; Referring Provider Internal Medicine Cardiovascular Disease; Visit Provider Internal Medicine Cardiovascular Disease
DX: E78.00 Pure hypercholesterolemia, unspecified (principal)
CPT/HCPCS: 36415; 80061; 80076

== ENCOUNTER → 2021-01-25 06:17 | Outpatient (CLI) | payer MEDICARE, OTHER, SELFPAY ==
[2020-12-29 10:16] VITALS: BMI 37.9
--- NOTE | 2021-01-25 07:56 | STRESSREP ---
Stress Test Report Date: 01-25-2021 Procedure: Pharmacologic stress nuclear imaging study Indications: Chest pain; CAD; PCI Consent: Per the patient Procedure: The patient underwent pharmacologic (Regadenoson 0.4mg ) evaluation with a peak heart rate of 90 beats per minute (61%predicted maximal heart rate) and a peak blood pressure of 148/82 mmHg. The baseline ECG demonstrated sinus rhythm. The peak pharmacologic ECG demonstrated no obvious ECG changes. There were no cardiac dysrhythmias pretest, during pharmacologic infusion, or recovery. There was no complaint of chest discomfort during pharmacologic infusion or recovery. The examination was discontinued secondary to completion of protocol. Impression: 1. Pharmacologic (Regadenoson) evaluation 2. Peak pharmacologic ECG with no obvious ECG changes. 3. There were no cardiac dysrhythmias pretest, during pharmacologic infusion, or recovery. 4. Nuclear images pending Myocardial perfusion imaging study: Technique: The patient was injected with 13.6 millicuries of technetium 99m Cardiolite and subsequently rest SPECT Cardiolite nuclear imaging was obtained in the horizontal long, vertical long, and short axis views. The patient underwent pharmacologic (Regadenoson) evaluation with a peak heart rate of 90 beats per minute (61% percent predicted maximal heart rate) and a peak blood pressure of 148/82 mmHg. The patient was injected with 44.6 millicuries of technetium 99m Cardiolite and subsequently stress SPECT Cardiolite nuclear imaging was obtained in the horizontal long, vertical long, and short axis views. A gated Cardiolite study at peak stress was obtained. Interpretation: Rest and stress SPECT Cardiolite nuclear imaging status post realignment, normalization, and attenuation correction demonstrate at rest relative uniform tracer uptake and is post stress the appearance of subtle diminished tracer uptake in portions of the distal anterior and anteroapical segments. There are similar type findings on the resting and stress polar map images. There is end systolic thickening and brightening. The gated Cardiolite study demonstrates myocardial thickening and inward wall motion. The reported LVEF is 71%. Impression: 1. Rest and stress SPECT Cardiolite nuclear imaging demonstrate myocardial perfusion changes concerning for an area of stress-induced myocardial ischemia in portions of the distal anterior and anteroapical segments although an element of shifting soft tissue attenuation/artifact cannot necessarily be excluded. 2. The gated Cardiolite study reports an LVEF of 71%. This note was generated with Dragon dictation software. It may contain incorrect words, spelling, and punctuation that were not noted in checking the note before signing.
== END ==
PROVIDERS: PCP Family Medicine; Referring Provider Internal Medicine Cardiovascular Disease; Visit Provider Internal Medicine Cardiovascular Disease
DX: I25.10 Atherosclerotic heart disease of native coronary artery without angina pectoris (principal); R07.9 Chest pain, unspecified; Z95.5 Presence of coronary angioplasty implant and graft
CPT/HCPCS: 78452; 93017; A9500; A4216; J2785

== ENCOUNTER 2021-02-02 07:03 | Day surgery (SDC) | payer MEDICARE, OTHER, SELFPAY ==
[2020-12-29 10:16] VITALS: BMI 37.9
--- NOTE | 2021-01-28 08:38 | RAD_ITS ---
STUDY: X-RAY CHEST REASON FOR EXAM: Female, 75 years old. Chest pain . Abnormal stress test. TECHNIQUE: PA and lateral views of the chest. COMPARISON: Comparison is made with prior study 03/11/2018. FINDINGS: The previously seen left-sided portacatheter has been removed. Surgical clips are seen in both axillary regions. Stable minimal increased linear markings at the lung bases suggest mild bibasilar scarring There is no demonstrated pleural abnormality. Normal size heart. Normal mediastinum and miryam. Normal visualized pulmonary arteries. Normal visualized aortic arch and descending thoracic aorta. There are diffuse degenerative changes of the visualized thoracic spine. Mild degree of dextroscoliosis. Normal visualized ribs, clavicles, and shoulders. There is no demonstrated abnormality of the visualized soft tissue structures of the upper abdomen. RAD/Chest PA and Lateral IMPRESSION: Mild linear bibasilar scarring. Surgical clips are seen in both axillary regions. Electronically Signed: Gabriel Tabor MD at 12:47 EST , Service support ,
[2021-01-28 09:18] LABS: Hematocrit 41.4 % (37-47); Hemoglobin 13.8 g/dL (12.0-15.0); Mean Corp Hgb Conc 33.3 g/dL (32-36); Mean Corpuscular Hgb 30.5 pg (27.0-32.0); Mean Corpuscular Volume 91.4 fL (81-99); Mean Platelet Vol. 9.9 fl (6.2-12.0); Platelet Count 320 K/mm3 (150-450); RBC Distribution Width CV 13.4 % (11.6-14.6); RBC Distribution Width SD 43.8 fl (35.1-43.9); Red Blood Count 4.53 M/mm3 (4.2-5.4); White Blood Count 8.3 K/mm3 (4.4-11.0)
[2021-01-28 09:27] LABS: Prothrombin Time (Protime)PT. 12.2 SECONDS (11.7-14.9)
[2021-01-28 09:28] LABS: Partial Thromboplast Time 22.9 Seconds (24.1-36.2)
[2021-01-28 09:49] LABS: Anion Gap 6 (5-15); BUN 14 mg/dL (7-18); BUN/Creat Ratio 16.6 RATIO (10-20); Calcium,Total 9.7 mg/dL (8.5-10.1); Chloride 102 mmol/L (98-107); Creatinine, Serum 0.84 mg/dL (0.55-1.02); EST Glomerular Filtration Rate 70 mL/min (>60); Est Glom Filt Rate - Afr Amer 85 mL/min (>60); Glucose 177 mg/dL (74-106); Potassium 3.9 mmol/L (3.5-5.1); Sodium Level 140 mmol/L (136-145)
[2021-01-31 12:58] VITALS: BMI 38.9
[2021-02-01 11:36] VITALS: BMI 37.8
--- NOTE | 2021-02-02 08:01 | PCM.HP.BLA ---
Problem List (1) Chest pain Status: Acute (2) Abnormal stress test Status: Acute (3) CAD (coronary artery disease) Status: Acute (4) Presence of stent in coronary artery Status: Chronic Comment: PTCA of the DX1 10/04; PCI/HOOD of CX and balloon angioplasty of AV groove diag 09/26/11; IVUS for stenting mid DX1 with fractured pre existing stent 03/12/12 (5) HLD (hyperlipidemia) Status: Chronic Qualifiers: History and Physical Date of Admission: 02/02/21 [facility] [address] [place] [address] OFFICE VISIT Date of Service: 12/29/20 MR#: [id number] Acct: [id number] Name: GABBY TOWNSEND Rep #: [id number] : 1945 Provider: Dr. Jb Segovia MD Age/Sex: 75/F Location: [facility] Status: Signed HPI HPI History of Present Illness Details: GABBY TOWNSEND, is a 75 year old white female who presents to the office today for outpatient cardiovascular follow-up of her history of underlying CAD status post PCI superimposed on hyperlipidemia and hypertension. She states she has been getting intermittent episodes of precordial chest pressure/tightness. She notes that these episodes can come when she is sitting doing nothing and not necessarily just when she is up and active. They do not necessarily radiate nor are they necessarily associated with other symptoms. They can be brief. They can occur daily. She has not had any orthopnea or PND or ongoing peripheral pitting edema. There has been no near syncope or syncope. She had an ECG in the office today. She was noted to be in sinus rhythm with poor R wave progression. She recently had a transthoracic echocardiogram performed in October 2020. The results are as noted below. Her other noninvasive and invasive cardiovascular history was reviewed with her. It is noted below. 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: No Accompanied by: Self Allergies iodine Allergy (Severe, Verified 12/29/20 10:16) Rash povidone-iodine [From Betadine] Adverse Reaction (Severe, Verified 12/29/20 10:16) Itching pravastatin sodium [From Pravachol] Adverse Reaction (Severe, Verified 12/29/20 10:16) LEG CRAMPS rosuvastatin calcium [From Crestor] Adverse Reaction (Severe, Verified 12/29/20 10:16) LEG CRAMPS simvastatin Adverse Reaction (Severe, Verified 12/29/20 10:16) LEG CRAMPS soap [From Betadine] Adverse Reaction (Severe, Verified 12/29/20 10:16) Itching Medications Nitroglycerin (INPATIENT USE) [Nitrostat] 0.4 mg SUBLINGUAL Q5M PRN tab.subl 07/24/19 [Rx Confirmed 12/29/20] Acetaminophen [Tylenol Tablet] 650 mg PO Q6H PRN PRN tab 07/29/19 [Rx Confirmed 12/29/20] Potassium Chloride [K-Dur] 20 meq PO BIDCM tab 07/29/19 [Rx Confirmed 12/29/20] metFORMIN HCl [Glucophage] 1,000 mg PO BIDCM tab 07/29/19 [Rx Confirmed 12/29/20] aspirin 81 mg chewable tablet 81 mg PO DAILY tab 05/24/20 [History Confirmed 12/29/20] atenolol 50 mg tablet 50 mg PO DAILY #90 tab 05/24/20 [Rx Confirmed 12/29/20] atorvastatin 10 mg tablet 10 mg PO QHS #90 tab 05/24/20 [Rx Confirmed 12/29/20] ergocalciferol (vitamin D2) 1,250 mcg (50,000 unit) capsule 50,000 unit PO 2XW cap 05/24/20 [History Confirmed 12/29/20] hydrochlorothiazide 25 mg tablet 25 mg PO DAILY #90 tab 05/24/20 [Rx Confirmed 12/29/20] isosorbide mononitrate 30 mg tablet,extended release 24 hr 30 mg PO DAILY #90 tab 05/24/20 [Rx Confirmed 12/29/20] ramipril 2.5 mg capsule 2.5 mg PO DAILY #90 cap 05/24/20 [Rx Confirmed 12/29/20] Anastrozole [Arimidex] 1 mg PO DAILY 90 Days #90 tab 08/18/20 [Rx Confirmed 12/29/20] calcium citrate 250 mg PO BID 12/29/20 [History Confirmed 12/29/20] dicyclomine 20 mg tablet 20 mg PO BID 12/29/20 [History Confirmed 12/29/20] FORMERLY [facility], [facility] Medical History Mass of left breast (Acute) Essential hypertension (Chronic) Diabetes mellitus type 2 in obese (Chronic) Fracture of hip, right, closed (Resolved) ZITA (obstructive sleep apnea) (Chronic) Pulmonary hypertension (Chronic) Nonrheumatic tricuspid (valve) insufficiency (Chronic) Nonrheumatic mitral valve regurgitation (Chronic) Atherosclerotic heart disease of [place] coronary artery without angina pectoris (Chronic) Presence of stent in coronary artery (Chronic ~03/12/12) Chemotherapy induced diarrhea (Chronic) Genetic counseling (Chronic) Chemotherapy management, encounter for (Chronic) Bilateral malignant neoplasm of breast in female (Chronic) Breast cancer (Chronic) Murmur, cardiac (Chronic) HLD (hyperlipidemia) (Chronic) Heel spur (Acute) History of DVT (deep vein thrombosis) (Acute) ZITA (obstructive sleep apnea) (Acute) PORT PLACEMENT (Acute) Osteoarthritis (Chronic) Chest pain (Resolved) Surgical History Postsurgical percutaneous transluminal coronary angioplasty (PTCA) status (Chronic) Presence of coronary angioplasty implant and graft (Chronic ~03/12/12) History of bilateral mastectomy (Resolved) History of carpal tunnel surgery (Resolved) History of cholecystectomy (Resolved) History of colonoscopy (Resolved) History of knee joint replacement (Resolved) History of right breast biopsy (Resolved) Family History Sister Pancreatic cancer Diabetes Heart disease Leukemia Breast cancer Hypertension Brother Diabetes Bone cancer Heart disease Hypertension CVA (cerebral vascular accident) Father No problems noted. Social History (Updated 12/29/20 @ 11:[address] Jb Segovia MD) Smoking Status: Never smoker alcohol intake: never substance use type: does not use ROS Const Const: Negative for fatigue, weakness, frequent falls, excessive sweating, weight gain or weight loss Eyes Eyes: Negative for transient loss of vision, blurry vision or change in vision ENT ENT: Negative for dizziness or balance problems Cardio Chest Pain: Yes (occasional) Character: dull Onset: at rest Location: left chest, other (across chest) Duration: minutes (30 minutes) Relieving: rest Palpitations: No Edema: None Muscle aches with walking: None Resp Respiratory: Positive for SOB with activity (baseline); negative for SOB at rest GI GI: Negative vomiting or vomiting blood/hematemesis : Negative for hematuria Musc Musc: Negative for muscle aches/ myalgia, muscle weakness, joint pain or balance problems Skin Skin: Negative non-healing lesions or rash Neuro Neuro: Negative for dizziness, lightheadedness, orthostatic symptoms, frequent falls, weakness or blurry vision Randy Hematologic/Lymphatic: Negative for easy bleeding Endo Endo: Negative for fatigue or excessive sweating Psych Psych: Negative for anxiety or depression Allergy Allergy/Immunology: Negative for hives, Negative for rash Cardiology Exam Const Appearance: cooperative, healthy appearing, comfortable, no acute distress, well developed and well groomed Nutritional Appearance: overweight Orientation: alert, awake and oriented x3 Head Head: normal to inspection, normocephalic and atraumatic Ears: hearing grossly normal bilaterally Nose: external nose normal Face and Sinus: face symmetric Eyes Eyelids: eyelids normal Conjunctivae: conjunctivae normal Pupils: PERRL EOM: EOM intact bilaterally Neck Neck: normal visual inspection and full ROM Carotids: normal carotid upstroke Chest Chest inspection: normal inspection of the chest, symmetric chest movement and normal respiratory effort Auscultation: Bilateral: Clear to Auscultation Cardio Palpation: normal PMI Rate: regular rate Heart sounds: S1 normal, S2 normal and positive S4 Murmur: Grade 2/6, soft, mid systolic and sternal notch GI GI: normal to inspection, soft and bowel sounds present Neuro General: alert, awake, oriented x3, gait normal and moves all extremities Skin Skin: no rashes or lesions noted Extremities Pulses: Normal: Right Radial Pulse, Left Radial Pulse Lower Extremity Edema: None: Bilateral Psych Psychological: normal affect Assessment & Plan 1. Atherosclerosis of [place] coronary artery of [place] heart without angina pectoris I25.10 PTCA of the DX1 10/04; PCI/HOOD of CX and balloon angioplasty of AV groove diag 09/26/11; IVUS for stenting mid DX1 with fractured pre existing stent 03/12/12 Plan At the present time she does have a history of CAD and previous PCI as noted. Her symptoms are somewhat mixed with characteristics that are concerning for angina pectoris but other characteristics that are not necessarily classic for angina pectoris. However based upon her history, her previous risk factors, her previous diagnosis, etc. she will undergo further evaluation. This will include an exercise tolerance test/imaging study which for her will be a pharmacologic stress nuclear imaging study as she is unable to walk on a treadmill. Depending upon the findings she may or may not need reevaluation in the cardiac catheterization laboratory. Orders Orders: 12 Lead EKG performed by [facility] Today 2. Presence of stent in coronary artery Z95.5 PTCA of the DX1 10/04; PCI/HOOD of CX and balloon angioplasty of AV groove diag 09/26/11; IVUS for stenting mid DX1 with fractured pre existing stent 03/12/12 Plan She will continue evaluation care as noted above. Orders Orders: 12 Lead EKG performed by [facility] Today Nuclear Stress Test - Chemical Today 3. Hyperlipidemia, unspecified hyperlipidemia type E78.5 Plan She will be asked to have future fasting lipid and hepatic profile performed. 4. Essential hypertension I10 Plan Her blood pressure appears to be reasonably well controlled. She will continue medical therapy. 5. Precordial pain R07.2 Plan Again she has chest pressure/precordial discomfort. The concerns are as noted above. She will be asked to proceed with further noninvasive evaluation at this time. Plan Detail Other Orders Orders: Lipid Profile 1 Day E78.00 Liver Profile 1 Day E78.00 Follow Up 6 Months (PFM) Coding Level of Care Code Off vis,est,level 4 Diagnoses Atherosclerosis of [place] coronary artery of [place] heart without angina pectoris I25.10 ??[place] vs. transplanted heart: [place] heart Presence of stent in coronary artery Z95.5 Hyperlipidemia, unspecified hyperlipidemia type E78.5 ??Hyperlipidemia type: unspecified Essential hypertension I10 Precordial pain R07.2 ??Chest pain type: precordial pain Coding Level of Care Code Off vis,est,level 4 Diagnoses Atherosclerosis of [place] coronary artery of [place] heart without angina pectoris I25.10 ??[place] vs. transplanted heart: [place] heart Presence of stent in coronary artery Z95.5 Hyperlipidemia, unspecified hyperlipidemia type E78.5 ??Hyperlipidemia type: unspecified Essential hypertension I10 Precordial pain R07.2 ??Chest pain type: precordial pain Supplemental Info Supplemental Information Transthoracic echocardiogram: 03-03-19 Interpretation Summary Normal LV size. Left ventricular systolic function is normal. The estimated ejection fraction is 60 %. Stage 2 diastolic dysfunction. Mild (1+) tricuspid valve insufficiency. The global longitudinal strain is normal. The global longitudinal strain = -19.1 % (normal). Echocardiogram: 11/17/2020 Interpretation Summary The study was technically difficult. Left ventricular systolic function is normal. The estimated ejection fraction is 65 %. The global longitudinal strain = -20 % (normal). The left atrium is mildly enlarged. There is mild mitral annular calcification. Extension of the mitral annular calcification on the base of the posterior mitral valve leaflet. Trivial mitral valve insufficiency. Trivial tricuspid valve insufficiency. Mild focal aortic valve calcification. Mild (1+) pulmonic valve insufficiency. Right ventricular systolic pressure estimated to be 32 mmHg. Diastolic function is indeterminate. He had a stress test performed at [facility] on 03/12/2015. The patient underwent pharmacologic (regadenoson) evaluation with a peak heart rate of 87 beats per minute (57% predicted maximum heart rate) with a peak blood pressure of 138/76 mmHg. The baseline ECG demonstrated normal sinus rhythm. The peak pharmacologic ECG demonstrated no obvious ECG changes. There were occasional PVCs in the form of ventricular bigeminy pretest, during pharmacologic infusion, and occasional PVCs in the form of ventricular bigeminy and trigeminy in recovery. Of note, the PVCs appeared to be uniform in morphology. There was no complaint of chest discomfort during pharmacologic infusion or recovery. The examination was discontinued secondary to secondary to completion of protocol. IMPRESSION: 1. Pharmacologic (regadenoson) evaluation. 2. Peak pharmacologic ECG with no obvious ECG changes. 3. Occasional PVCs in the form of ventricular bigeminy pretest and during pharmacologic infusion and occasional PVCs in the form of ventricular bigeminy/ trigeminy during recovery. 4. Nuclear images pending. MYOCARDIAL PERFUSION IMAGING STUDY: TECHNIQUE: The patient was injected with 15.0 mCi of Tc99m Cardiolite and subsequently stress SPECT Cardiolite nuclear imaging was obtained in the horizontal long, vertical long, and short axes views. The patient underwent pharmacologic ( regadenoson) evaluation with a peak heart rate of 87 beats per minute (57% predicted maximum heart rate) and a peak blood pressure of 138/76 mmHg. The patient was injected with 44.6 mCi of Tc99m Cardiolite and subsequently stress SPECT Cardiolite nuclear imaging was obtained in the horizontal long, vertical long, and short axes views. A gated Cardiolite study at peak stress was obtained. INTERPRETATION: Rest and stress SPECT Cardiolite nuclear imaging both demonstrate an element of extracardiac/hepatic and gastrointestinal tracer uptake near the inferior segments. Otherwise there appears to be relative uniform tracer uptake. There is end systolic thickening and brightening. The gated Cardiolite study demonstrates myocardial thickening and inward wall motion. The reported LVEF is 58%. IMPRESSION: 1. Rest and stress SPECT Cardiolite nuclear imaging demonstrate relative uniform tracer uptake with no myocardial perfusion changes considered diagnostic for stress induced myocardial ischemia or previous myocardial injury/infarction. 2. The gated Cardiolite study reports an LVEF of 58%. Her most recent cardiac catheterization was performed at [facility] on 11/24/2015. impression: 1. Elevated left ventricular end diastolic pressure compatible decreased diastolic compliance 2. Left ventricle: A. Normal left ventricular size, wall motion, and systolic function 6. Estimated LVEF of 70 % 3. Left main coronary artery: A. Mild calcification 4. Left anterior descending coronary artery: A. Proximal mild calcification B. Mid to distal diffuse minimal luminal irregularities C. Apical 50% eccentric hazy appearing stenosis 5. Diagonal branch #2: A. Small caliber vessel B. Proximal stent: Patent: Minimal luminal irregularities 6. Left circumflex coronary artery: A. Ostial calcification and a 50% eccentric tapering/stenosis B. Proximal stent: Patent: Minimal luminal irregularities C. Immediately status post takeoff of the 1st ON there is 25-50% appearing stenosis subsequent followed by minimal luminal irregularities 7. Right coronary artery: A. Large dominant vessel B. Proximal minimal luminal irregularities C. Mid 10-25% eccentric appearing stenosis-serial lesions D. Distal: Minimal luminal irregularities 8. Mitral valve: A. Trace to mild mitral valve regurgitation: PVC induced Her most recent PCI procedure was performed at [facility] on 03/12/2012. At that time she received PTCA/stent of a fractured pre-existing stent and 70% stenosis in the mid first diagonal artery with notation of a patent pre-existing stent in the proximal LCx. Labs LDL Cholesterol 79 mg/dL (0-130) 04/26/20 HDL Cholesterol 47 mg/dL (40-) 04/26/20 Triglycerides 204 mg/dL (-199) H 04/26/20 VLDL Cholesterol 41 mg/dL (5-40) H 04/26/20 Diagnostics Electrocardiogram 12/29/20 Echocardiogram 11/17/20 Stress Test Nuclear Medicine 03/12/15 Cardiac Catheterization 11/24/15 Chest X-Ray 03/11/18 12/29/20 1106 <Electronically signed by Jb Segovia MD> Date Jb Segovia MD Cosigner Signature: Date (if applicable) CC: Dr. Jb Cast MD ~ I have examined the patient the following changes are noted: The patient underwent further evaluation with exercise tolerance test/imaging study. The results are as noted below. [facility] [address] [place] [address] MR#: [id number] Acct: [id number] Name: GABBY TOWNSEND Rep #: [id number] : 1945 75 From: Jb Segovia MD Primary Care: Dr. Jb Cast MD Status: REG I Referring Dr: Jb Segovia MD Sex: F C Stress Test Report Date: 01-25-2021 Procedure: Pharmacologic stress nuclear imaging study Indications: Chest pain; CAD; PCI Consent: Per the patient Procedure: The patient underwent pharmacologic (Regadenoson 0.4mg ) evaluation with a peak heart rate of 90 beats per minute (61%predicted maximal heart rate) and a peak blood pressure of 148/82 mmHg. The baseline ECG demonstrated sinus rhythm. The peak pharmacologic ECG demonstrated no obvious ECG changes. There were no cardiac dysrhythmias pretest, during pharmacologic infusion, or recovery. There was no complaint of chest discomfort during pharmacologic infusion or recovery. The examination was discontinued secondary to completion of protocol. Impression: 1. Pharmacologic (Regadenoson) evaluation 2. Peak pharmacologic ECG with no obvious ECG changes. 3. There were no cardiac dysrhythmias pretest, during pharmacologic infusion, or recovery. 4. Nuclear images pending Myocardial perfusion imaging study: Technique: The patient was injected with 13.6 millicuries of technetium 99m Cardiolite and subsequently rest SPECT Cardiolite nuclear imaging was obtained in the horizontal long, vertical long, and short axis views. The patient underwent pharmacologic (Regadenoson) evaluation with a peak heart rate of 90 beats per minute (61% percent predicted maximal heart rate) and a peak blood pressure of 148/82 mmHg. The patient was injected with 44.6 millicuries of technetium 99m Cardiolite and subsequently stress SPECT Cardiolite nuclear imaging was obtained in the horizontal long, vertical long, and short axis views. A gated Cardiolite study at peak stress was obtained. Interpretation: Rest and stress SPECT Cardiolite nuclear imaging status post realignment, normalization, and attenuation correction demonstrate at rest relative uniform tracer uptake and is post stress the appearance of subtle diminished tracer uptake in portions of the distal anterior and anteroapical segments. There are similar type findings on the resting and stress polar map images. There is end systolic thickening and brightening. The gated Cardiolite study demonstrates myocardial thickening and inward wall motion. The reported LVEF is 71%. Impression: 1. Rest and stress SPECT Cardiolite nuclear imaging demonstrate myocardial perfusion changes concerning for an area of stress-induced myocardial ischemia in portions of the distal anterior and anteroapical segments although an element of shifting soft tissue attenuation/artifact cannot necessarily be excluded. 2. The gated Cardiolite study reports an LVEF of 71%. This note was generated with OzVisionation software. It may contain incorrect words, spelling, and punctuation that were not noted in checking the note before signing. 01/25/21 0907 <Electronically signed by Jb Segovia MD> Date Jb Segovia MD CC: Dr. Jb Segovia MD; Dr. Jb Cast MD ~ Date Dictated: 01/25/21 0756 Date Transcribed: 01/25/21755 Assistant Professor Of English: PM Signed The patient was recommended for further evaluation with diagnostic cardiac catheterization. The procedure and risk were discussed with the patient. She was agreeable to this approach. Procedure Criteria Procedure Type: Elective COVID Risk Discussion: The surgeon/proceduralist and patient have discussed in detail the risk of exposure to and/or potential harm posed by the COVID-19 virus with having a surgery/procedure at this time versus the risk of delaying the surgery/procedure. It is not possible to know either the risk of delaying the surgery or procedure or chance of getting an infection with perfect accuracy, but a joint decision was made between the patient and the surgeon/proceduralist to proceed at this time with the scheduled surgery/procedure as indicated on the consent form.
--- NOTE | 2021-02-02 10:58 | CL.D_ITS ---
Patient Name: GABBY TOWNSEND Study Date: 02/02/2021 Performing: Jb Segovia MD Ht: 64.56 inches 164 cm : 1945 Wt: 224.87 lbs 102 kg Age: 75 Gender: female BSA: 2.07 PROCEDURE(S) PERFORMED [id number]/LV CLINICAL PROFILE AND INDICATIONS Indications: Worsening Angina, Suspected CAD Heart Failure: None Stress/Imaging Date: 01/25/2021tress Test with SPECT MPI: Positive Intermediate Risk Angina Classification Anginal Classification w/in 2 Weeks: CCS III CAD Presentations: Stable angina. CONCLUSIONS Normal Left Ventricular End Diastolic Pressure Normal LV size, wall motion,and systolic function LVEF: by LV gram 60 % [place] Multivessel CAD RECOMMENDATIONS Medical therapy Surgery consult for coronary revascularization DESCRIPTION OF PROCEDURE The patient arrived to the procedure lab. The risks and benefits of the procedure as well as a full d escription of our services here and current unavailability of surgical backup were fully explained to the patient and/or their significant other prior to the catheterization. The Timeout was completed, verifying the correct patient and procedure. The patient's procedural site was prepped and draped in the usual fashion. Local anesthetic was given subcutaneously to right groin region with Lidocaine 2%. Using a modified Seldinger technique, arterial access was obtained via the right femoral artery, a 4 Fr sheath was inserted Left Coronary Artery selective angiography was performed in multiple views us ing a 4 Fr. JL5 catheter. Right Coronary Artery selective angiography was then performed in multiple views using a 4 Fr. 3DRC catheter. Left Ventriculography was performed in TAVERA projection using a 4 Fr . Pigtail catheter. LV to AO pullback pressures were then recorded.The arterial sheath was pulled and manual compression applied until hemostasis is achieved. CORONARY ANGIOGRAPHY DOMINANCE: Right Dominant LEFT HEART ASSESSMENT Left Ventricular Ejection Fraction: by LV Gram 60 % Normal LV wall motion Normal Left Ventricular End Diastolic Pressure LVEDP: 12 mmHg LEFT MAIN: Mild calcification LEFT ANTERIOR DESCENDING ARTERY: OSTIAL LAD: 90 % Stenosis PROX LAD: Mild calcification, Previously placed stent is patent, Mild luminal irregularities MID LAD: Mild luminal irregularities DISTAL LAD: Mild luminal irregularities DIAGONAL 1: Ostial - 85 % Stenosis, Proximal - Mild luminal irregularities CIRCUMFLEX ARTERY: OSTIAL CIRC: 85 % Stenosis PROX CIRC: Previously placed stent has an instent hazy: 25 % restenosis RIGHT CORONARY ARTERY: Mild luminal irregularities AORTIC ROOT: Angiographically normal COMPLICATIONS No Complications PROCEDURE MEDICATIONS Versed 1 mg IV Oxygen: 2 L/min via nasal cannula Solu-medrol 125 mg IV 02/02/2021 08:12:43 SUMMARY OF HEMODYNAMIC DATA Time AIR REST ECG 07:26:43 AO 122/52 (81) SA 08:13:37 LV 123/-1, 17 08:21:21 LV 123/-12, 12 08:21:27 LV 124/-4, 19 08:22:21 LVp 124/-5, 17 08:22:26 AOp 121/49 (77) 08:22:32 Signed By Jb Segovia MD On 02/02/2021 10:57:15 Jb Segovia MD
== END 2021-02-02 13:43 | disposition short-term general hospital (02) ==
LOC: CLSP 07:04
PROVIDERS: PCP Family Medicine; Referring Provider Internal Medicine Cardiovascular Disease; Visit Provider Internal Medicine Cardiovascular Disease
DX: I25.119 Atherosclerotic heart disease of native coronary artery with unspecified angina pectoris (principal); I27.20 Pulmonary hypertension, unspecified; I49.3 Ventricular premature depolarization; E11.9 Type 2 diabetes mellitus without complications; I10 Essential (primary) hypertension; E78.5 Hyperlipidemia, unspecified; R07.9 Chest pain, unspecified; G47.33 Obstructive sleep apnea (adult) (pediatric); E66.9 Obesity, unspecified; Z79.84 Long term (current) use of oral hypoglycemic drugs; Z79.02 Long term (current) use of antithrombotics/antiplatelets; Z79.82 Long term (current) use of aspirin; Z79.899 Other long term (current) drug therapy; Z95.5 Presence of coronary angioplasty implant and graft; Z86.718 Personal history of other venous thrombosis and embolism
CPT/HCPCS: 36415; 71046; 80048; 85027; 85610; 85730; 93458; 99152; 99153; J7040; Q9967; C1769; C1894

== ENCOUNTER → 2021-03-17 10:01 | Outpatient (CLI) | payer MEDICARE, OTHER, SELFPAY ==
[2021-03-09 10:52] VITALS: BMI 36.5
--- NOTE | 2021-03-17 10:06 | CR.ITP_ITS ---
Diagnosis - General Information Admitting Diagnosis: S/P CABG Secondary Diagnosis: HYPERLIPIDEMIA, HYPERTENSION Personal Learning Style:: Written Barriers to Learning: Hearing Impairment, Vision Impairment Stage of change r/t lifestyle modifications:: Action Gave educational material for:: Treating Heart Disease, Emotions & Heart Disease, Stress Management & Relaxation, Sleep Disorders & Heart Disease, How The Heart Works, What it means to have Heart Disease, How Coronary Artery Disease is Diagnosed, Heart Procedures, What Heart Medications Do, Risk Factors & Modifications, Living an Active Life, Nutrition - Education/Goals Individual Counseling: Initial Assessment: Abnormal Cholesterol Levels, High Blood Pressure, Overweight/Obesity Cardiac Rehabilitation Goals: 1. Maintain the individual as the primary focus of care. 2. To improve the patient's quality of life. 3. Identification of cardiac risk factors and provide cardiac risk factor management. 4. Enhance the psychosocial status of the patient. 5. Reconditioning enough to allow the patient to resume customary activities. 6. Control symptoms of cardiac disease Personal Goals: Initial Assessment: Improve management of stress and emotions, Improve energy level, Participate in home exercise program, Improve knowledge of cardiac disease, Improve muscle strength and endurance, Improve diet and eating habits (eat healthier), Control risk factors (learn risk factor modification) Scale for measuring improvement of personal goals: Enter appropriate number in Comments. 2 = Unchanged. 3 = Slightly Better. 4 = Moderate Improvement. 5 = Met my Goal - Diagnosis & Disease Process Outcomes/Goals: Pt IDs own risk factors & lifestyle modifications by Session 10, Verbalizes symptoms of angina & response by session 3., Pt independently manages Plan/Interventions: Assist Pt to ID & engage in lifestyle modification to reduce CVD risk, Instruct on individual risk factors, Review symptoms of angina & emergency actions, Review secondary diagnosis & identify educational needs. - Safety Referral to Physical Therapy: No Referral to [facility] Case Management: No Fall Risk Assessed:: Yes Assistive Devices:: None Exercise - Initial Assessment - Visit Date of Eval: 03/17/21 Session #:: 0 - PRE-CARDIAC REHAB EVALUATION Mets: Pre-: >5 METS for 30 minutes by discharge - Physician Prescribed Exercise Modalities: Treadmill, Airdyne, NuStep, SciFit Frequency: 3x/week for 12 weeks [36 sessions] Intensity: 60-80% of age predicted maximum heart rate reserve Current METSs:: 2.5 Target Heart Rate:: 94-124 EKG Type: SINUS RHYTHM WITH POOR R WAVE PROGRESSION - Outcomes & Goals Goals:: Verbalizes understanding of THR, RPE & goal METS by session 6, Documents in home exercise log/reports 30 min aerobic 5 day/wk by DC, Demonstrates accurate pulse taking by DC - Intervention & Plan Exercise Program Goals: Instruct on personal THR & RPE, Instruct on MET level & personal MET goal, Show patient to take own pulse /validate performance until accurate, Instruct on home exercise - Physical Activity Home Exercise Physical Activity - Home Exercise: Safe Exercise, Warm-up, Self-monitoring, Cool-Down, Home Exercise > 30 min Daily, Sitting Time <3 hours/daily - Outcomes & Goals Outcomes/Goals: Demonstrates correct Warm-up/exercise Cool-Down (S3) if = 2.5 METs, Verbalizes symptoms of exercise intolerance by Session 3 (S3), Demonstrate safe equipment use (S3) & follows exercise prescrition (6) Nutrition - Initial Assessment - Program Goals Nutrition Program Goals: LDL <100 optimal. 100 - 129 Near optimal. 130 - 159 Borderline High. 160 - 189 High. Total Cholesterol <200 desirable. 200 - 239 Borderline High. >/= 240 High. HDL < 40 Low >/=60 High. Triglycerides <150 desirable. <199 optimal. VlDL 5 - 40. HgbA1C <7%. BMI <25 Patient has diagnosis of Hyperlipidemia (ICD E78)?: Yes - Visit Date of Assessment:: 03/17/21 Session #:: 0 - PRE-CARDIAC REHAB EVALUATION - Cholesterol/Lipids Triglycerides (mg/dL): 180 Total Cholesterol (mg/dL): 187 LDL Cholesterol (mg/dL): 95 HDL Cholesterol (mg/dL): 56 Determine presence & major risk factors that modify LDL goal: Hypertension or hypertensive medication, Age men > 45 years; women >/= 55 years Outcomes/Goals: Pt IDs own risk factors & lifestyle modifications by Session 10, Verbalizes symptoms of angina & response by session 3., Pt independently manages Intervention/Plan: Instruct on personal lipid levels & lipid goals/NCEP guidelines, Instruct on cholesterol Referral to dietitian:: Yes - MEDICAL NUTRITION THERAPY - Diabetes (Other Core Measures) Diabetes Type: Diagnosis Type II ICD-10 E11 Insulin dependent injection/pump?: No Non-Insulin Dependent?: Yes - METFORMIN 1,000MG BID Referral to Diabetic Clinic:: Yes - Weight Mgt (Other Care) Height: 5 ft 4.5 in Weight:: 216 lb BMI: 36.5 Diagnosis Overweight/Obesity BMI> 30% ICD-10 E66: Yes Diagnosis High BMI/Morbid Obesity BMI> 35% ICD-10 Z68: Yes Outcomes/Goals: Pt sets, maintains & shows weight loss goal & trend during rehab Intervention/Plan: Instruct on ideal BMI & set weight loss goal w/patient, Assist pt to ID & incorporate diet changes for weight loss by S9, Refer to Structured Weight Loss program as appropriate, Encourage goal of using 250- 300dcal per session for weight loss - Healthy Eating Habits Will attend diet classes:: Yes Outcomes/Goals:: Consume diet rich in vegs,fruits,whole grain/high fiber,fish,lean meat, Limit sat/trans fats,cholesterol & added salts & sugars Intervention/Plan:: Assess current eating habits Medical - Initial Assessment - Visit Date of Eval: 03/17/21 Session #:: 0 - PRE-CARDIAC REHAB EVALUATION - Medication Compliance Preventative Medication(s):: Aspirin, Clopidogrel/P2Y12 inhibit, Statin/lipid, Beta leonard H/O mental health issues: depression, anxiety, or addiction?: No Doesn?t believe in the benefits of treatment?: No Believes medications are unnecessary or harmful?: No Has a concern about medication side effects?: No Expresses concern over the cost of medications?: No Outcomes/Goals: Verbalizes medications,desired effect & common side effects @ DC, Pt self-reports following medication regimen, Keeps card in wallet w/medications listed by DC Interventions/plans: Instruct on medication effects & side effects, Review medication list w/patient every two weeks, Instruct importance of taking meds as ordered & assist problem solving - Tobacco Use Tobacco Use: Non-smoker - Hypertension Hypertension Diagnosis:: Hypertension ICD-10 I10 Resting Blood Pressure:: 108/64 [place] [employer] Hypertension Guidelines: [place] [employer] Hypertension Guidelines. Normal BP Less than 120/80. Elevated BP 120/80. Hypertension Stage 1: BP 130-139/80-89. Hypertesnion Stage 2: BP 140 or higher/90 or higher. Hypertension Crisis: BP higher than 180/120 Outcomes/Goals: Able to verbalize/achieve optimal blood pressure <130/80, Incorporates diet changes & exercise for blood pressure control by DC Interventions/plan: Instruct on optimal blood pressure, hypertension & medicatio ns, Instruct on effects of sodium, alcohol, stress, exercise &hypertension - Tobacco Cessation Referral Smoking Cessation Referral:: No Individual Education/Counseling:: No Education Schedule Given:: Yes Psychosocial - Initial Assess - VIsit Date of Eval: 03/17/21 Session #:: 0 - PRE-CARDIAC REHAB EVALUATION Not Applicable: Yes History of previous Mental disease:: No - Target Goals Target Goals: Assess presence or absence of depression. Using a valid screening tool, maximizes coping skills. Positive support system - Psychosocial Test Tool Used:: Tam Dsouza QOL Cardiac, PHQ-9 Questionnaire phq-9 Severity: Severity. 1-4 Minimal Depression. 5-9 Mild Depression. 10-14 Moderate Depression. 15-19 Moderately Sever Depression. 20-27 Severe Depression. Rule: See PHQ-9 Score: 17 - PHQ-9 score indicative of moderate-severe depression - Referral to Behavioral Health PS - Interventions: Yes Referral to Physician if PHQ-9 if score is 5-9: - PHQ-9 17, Yes Attend Stress Management Classes, No Referral to Behavioral Health if PHQ-9 score >9:, No Referral to [facility] - Outcomes/Goals: See list Psychosocial Outcomes/Goals:: ID's personal stressors & 2 strategies to manage stress by discharge - Intervention/Plan: See List Interventions/Plan:: Assess stressors,coping strategies & signs of derpression on admission, Instruct/assist pt to develop coping & personal stress Mgt strategies, Instruct patient to recognize signs & symptoms of depression, Instruct patient to recog Patient Health Questionnaire Initial Assessment 1. Little interest or pleasure in doing things: More than half the days 2. Feeling down, depressed, or hopeless: Several days 3. Trouble falling or staying asleep, or sleeping too much: Nearly every day 4. Feeling tired or having little energy: Nearly every day 5. Poor appetite or overeating: More than half the days 6. Feeling bad about yourself -- or that you are a failure or have let yourself or your family down: Several days 7. Trouble concentrating on things, such as reading the newspaper or watching television: Nearly every day 8. Moving or speaking so slowly that other people could have noticed. Or the opposite - being so fidgety or restless that you have been moving around a lot more than usual: More than half the days 9. Thoughts that you would be better off , or of hurting yourself in some way: Not at all How difficult have these problems made it for you to do your work, take care of things at home, or get along with other people?: Somewhat difficult Total Score: 17 SURINDER-Q SV Test - Statements CAD is a disease of the arteries in the heart: False Examples of risk factors for heart disease: False Angina is chest pain or discomfort: I Don't Know The benefits of resistance training include: I Don't Know Eating more meat and dairy products: False Anti-platelet medications such as aspirin are important: True The only effective way to manage stress: I Don't Know An exercise warm-up slowly increases heart rate: I Don't Know Prepared, processed foods usually have high sodium: True Depression is common after a heart attack: False The statin medications lower cholesterol: True To control blood pressure, lower the amount of sodium: True If someone gets chest discomfort during walking: False Transfats are partially hydrogenated vegetable oils: True Sleep apnea that is not treated increases the risk: True To control cholesterol, one should become a vegetarian: False Someone knows if he/she is exercising at the right level: I Don't Know Diabetes cannot be prevented with exercise & health eating: True Stress is a large risk for heart attack: True A diet that can help lower blood pressure is rich in: True - Total Score Total Correct Responses: 11 Self-Efficacy Initial Assessment We would like to know how confident you are in doing certain activities. Please select your confidence level for:: Select your confidence level for the following using the scale 1-10 where 1 is not at all confident and 10 is totally confident. Your score is the average of all 6 responses. Fatigue: How confident are you that you can keep the fatigue caused by your disease from interfering with the things you want to do? Select Number: 9 Physical Discomfort or Pain: How confident are you that you can keep the physical discomfort or pain of your disease from interfering with the things you want to do? Select Number: 8 Emotional Distress: How confident are you that you can keep the emotional distress caused by your disease from interfering with the things you want to do? Select Number: 9 Other Symptoms or Health Problems: How confident are you that you can keep other symptoms or health problems from interfering with the things you want to do? Select Number: 7 Different Tasks and Activities: How confident are you that you can do the different tasks and activities needed to manage your health condition so as to reduce your need to see a doctor? Select Number: 8 Medication: How confident are you that you can do things other than just taking medication to reduce how much your illness affects your everyday life? Select Number: 9 Total Score:: 8 Nutrition Survey - Nutrition Survey Instructions Scoring Instructions: Scoring is as follows: Yes = 1 points. No = 0 point. Patient score that is >/=12 is considered to be at potential nutritional risk and could benefit from a referral to a registered dietitian. - Nutrition Survey Initial Have you lost >10 lbs over the past 2 months without trying?: Yes Are you following a special diet at home for diabetes, low fat, or low salt?: Yes Are you interested in meeting with a dietitian for help understanding your diet?: No Do you eat less than 3 meals a day?: No Do you eat fatty meats (penny, sausage, ribs, etc), fried foods, desserts, large amounts of salad dressings, margarine, butter, or cheese most days?: Yes Do you have food allergies? [Enter types in comment field]: No Do you eat in restaurants more than 3 times a week?: No Do you season food with salt, seasoning salt, or garlic salt?: Yes Do you used canned, boxed, frozen meals, or soups, seasoning packets?: No - DM TYpe II, previous cancer patient, overweight BMI 36.5 Total Score:: 4
--- NOTE | 2021-03-17 10:07 | PCM.CR.HP2 ---
CR - History & Physical - General Arrival date:: 03/17/21 Arrival time:: 10:00 Date of Referral:: 03/09/21 Date of CR Evaluation:: 03/17/21 Referring Physician: Dr. Jb Segovia Primary Diagnosis: S/P CABG - History of Present Cardiac Event Onset Date: Enter Onset Date of cardiac illnesses in Comment field below Coronary Artery Bypass Graft:: Yes - Jennifer Merritt on 02/09/2021 Type of Symptoms:: chest pain,fatigue, and palpitations Interventions with present event:: Regular routine check-up; EKG and nuclear stress test, heart cath showed up - Medications Home Medications: Ambulatory Orders Medication Instructions Recorded Nitroglycerin (INPATIENT USE) 0.4 mg SL Q5M PRN tab.subl 07/24/19 [Nitrostat] Potassium Chloride Oral Tablet 20 meq PO BIDCM tab 07/29/19 [K-Dur] aspirin 81 mg chewable tablet 81 mg PO DAILY tab 05/24/20 atorvastatin 10 mg tablet 10 mg PO QHS #90 tab 05/24/20 ergocalciferol (vitamin D2) 1,250 50,000 unit PO 2XW cap 05/24/20 mcg (50,000 unit) capsule hydrochlorothiazide 25 mg tablet 25 mg PO DAILY #90 tab 05/24/20 ramipril 2.5 mg capsule 2.5 mg PO DAILY #90 cap 05/24/20 Anastrozole [Arimidex] 1 mg PO DAILY 90 Days #90 tab 08/18/20 clopidogrel 75 mg tablet 75 mg PO DAILY #30 tab 01/26/21 calcium citrate 315 mg 1 tablet PO BID 02/22/21 calcium-vitamin D3 6.25 mcg (250 unit) tablet dicyclomine 20 mg tablet 20 mg PO Q6H tablet 02/22/21 dulaglutide 0.75 mg/0.5 mL 0.75 mg SC QWEEK 02/22/21 subcutaneous pen injector metoprolol tartrate 25 mg tablet 25 mg PO BID 02/22/21 polyethylene glycol 3350 17 gram 17 gm PO DAILY 02/22/21 oral powder packet metformin 1,000 mg tablet 1,000 mg PO BID 03/09/21 - Allergies Allergies/Adverse Reactions: Allergies iodine Allergy (Severe, Verified 03/09/21 11:01) Rash povidone-iodine [From Betadine] Adverse Reaction (Severe, Verified 03/09/21 11:01) Itching pravastatin sodium [From Pravachol] Adverse Reaction (Severe, Verified 03/09/21 11:01) LEG CRAMPS rosuvastatin calcium [From Crestor] Adverse Reaction (Severe, Verified 03/09/21 11:01) LEG CRAMPS simvastatin Adverse Reaction (Severe, Verified 03/09/21 11:01) LEG CRAMPS soap [From Betadine] Adverse Reaction (Severe, Verified 03/09/21 11:01) Itching - Sleep Disorder Evaluation Hx of Sleep Apnea: Yes Do you snore loudly (louder than talking or can be heard through closed doors)?: Yes Do you often feel tired/ fatigued/ sleepy during daytime?: No Has anyone observed you stop breathing during sleep?: No History of Hypertension (for STOP score): Yes - wears CPAP at HS for ZITA. STOP Results: Positive Advanced Directives - Advanced Directives Power of Corporate Strategy Intern: No Living Will: No Advance Directives Information Provided: Yes Advance Directives on File: No DNR Order?:: No - MOLST See MOLST form: No Past Medical History - Covid-19 Screening Fever: No - jd has been fully vaccinated for COVID-19 Moderna shot. Unexplained muscle aches: No Current respiratory symptoms: No Upper respiratory infections symptoms: No Gastro-intestinal symptoms: No Pfj-[id number]-Qdmway symptoms: No Has tested positive for COVID-19 in last 30 days: No Has High Risk Exposures ID'd by Health dept/Inf Control team: No 65 years or older:: Yes Lives in Assisted Living facility:: No Has a chronic lung disease or moderate to severe asthma:: No Has a serious heart condition:: Yes Immunocompromised:: Yes Severely obese (Body Mass Index of 40 or higher):: No Diabetic:: No Has chronic kidney disease undergoing dialysis:: No Has liver disease:: No - Past Medical Illness Medical History: Past Medical History (Last Updated 03/09/21 @ 11:25 by Saranya Gerber) Essential hypertension (Chronic) I10 Diabetes mellitus type 2 in obese (Chronic) E11.69, E66.9 Fracture of hip, right, closed (Resolved) S72.001A Pulmonary hypertension (Chronic) I27.20 Nonrheumatic tricuspid (valve) insufficiency (Chronic) I36.1 Nonrheumatic mitral valve regurgitation (Chronic) I34.0 Atherosclerotic heart disease of [place] coronary artery without angina pectoris (Chronic) I25.10 PTCA of the DX1 10/04; PCI/HOOD of CX and balloon angioplasty of AV groove diag 09/26/11; IVUS for stenting mid DX1 with fractured pre existing stent 03/12/12 Presence of stent in coronary artery (Chronic) Onset Date: ~03/12/12 Z95.5 PTCA of the DX1 10/04; PCI/HOOD of CX and balloon angioplasty of AV groove diag 09/26/11; IVUS for stenting mid DX1 with fractured pre existing stent 03/12/12 Genetic counseling (Chronic) Murmur, cardiac (Chronic) R01.1 HLD (hyperlipidemia) (Chronic) E78.5 Heel spur M77.30 ZITA on CPAP G47.33, Z99.89 Osteoarthritis M19.90 Bilateral malignant neoplasm of breast in female C50.911, C50.912 TP 53 (variant of uncertain significance) Breast cancer C50.919 Chemotherapy induced diarrhea (Resolved) K52.1, T45.1X5A Chest pain (Resolved) R07.9 History of DVT (deep vein thrombosis) Z86.718 History of left heart catheterization (LHC) Onset Date: ~02/02/21 Z98.890 LEFT MAIN: Mild calcification; LEFT ANTERIOR DESCENDING ARTERY: OSTIAL LAD: 90 % Stenosis,PROX LAD: Mild calcification, Previously placed stent is patent, Mild luminal irregularities, MID LAD: Mild luminal irregularities DISTAL LAD: Mild luminal irregularities; DIAGONAL 1: Ostial - 85 % Stenosis, Proximal - Mild luminal irregularities; CIRCUMFLEX ARTERY: OSTIAL CIRC: 85 % Stenosis, PROX CIRC: Previously placed stent has an instent hazy: 25 % restenosis; RIGHT CORONARY ARTERY: Mild luminal irregularities; AORTIC ROOT: Angiographically normal; Recommendation: Surgery consult for coronary revascularization per cardiac cath 02/02/21 Mass of left breast N63.20 PORT PLACEMENT Chemotherapy management, encounter for Z51.11 - Past Surgical History Surgical History: Past Surgical History (Last Updated 02/22/21 @ 12:10 by Dora Alberts) S/P coronary artery bypass graft x 3 (Chronic) Onset Date: ~02/09/21 Z95.1 MAYS to LAD, SVG to OM, SVG to Diagonal by DR. Lao 02/09/21 @ [facility] History of coronary artery bypass graft x 3 (Chronic) Onset Date: ~02/09/21 Z95.1 MAYS to LAD, SVG to OM, SVG to Diagonal by DR. Lao 02/09/21 @ [facility] Postsurgical percutaneous transluminal coronary angioplasty (PTCA) status Z98.61 PTCA of the DX1 10/04; PCI/HOOD of CX and balloon angioplasty of AV groove diag 09/26/11; IVUS for stenting mid DX1 with fractured pre existing stent 03/12/12 Presence of coronary angioplasty implant and graft Onset Date: ~03/12/12 Z95.5 PTCA of the DX1 10/04; PCI/HOOD of CX and balloon angioplasty of AV groove diag 09/26/11; IVUS for stenting mid DX1 with fractured pre existing stent 03/12/12 History of bilateral mastectomy Z90.13 History of carpal tunnel surgery Z98.890 History of cholecystectomy Z90.49 History of colonoscopy Z98.890 History of knee joint replacement Z96.659 History of right breast biopsy Z98.890 Surgical History: angioplasty, arthroscopy, knee, cholecystectomy, - - bone spur removal bilateral heels - Family History Summary Family History: Family History (Last Reviewed 01/31/21 @ 12:55 by Lety Larsen) Sister Pancreatic cancer Diabetes Heart disease Leukemia Breast cancer Hypertension Brother Diabetes Bone cancer Heart disease Hypertension CVA (cerebral vascular accident) Father No problems noted. Social History - Smoking History Smoking Status: Never smoker Hx Tobacco Use: No Hx Smoking Exposure: No - Alcohol Use Alcohol Usage: No - Substance Abuse Hx Substance Use: No - Occupation Occupation (List type of work in comments):: Retired - Hobbies, Recreation, Social Activities Hobbies: Watch TV, Other - lunch w/friends 35 yrs. family. Play cards Recreational Activities: I am able to engage in most, but not all activities - at least 75% or them Social Environment - Status Marital Status: - Current Living Arrangements Living Environment:: Alone - Children How many children do you have?: 3 - local Do any of your children live nearby?: Yes - Safety Do you feel safe in your surroundings?: Yes Review of Systems - Review of Systems Hints: Right click = Denies ([place]). Left click = Reports ([place]) Review of Present Symptoms: Reports: Shortness of Breath with Exertion - still a little bit, somewhat improved since surgery., Fatigue - usually in the evening 5 or 6 o'clock will get tired occasionally take a nap. Routinely gets up and walks about every hour and does home P.T. exercises given to her at discharge., Appetite - Normal, Appetite - Special Diet - trying to watch, more mindful of what I am eating now., Sleep - Normal. Denies: Operative Discomfort, Dizziness/Lightheadedness, Heart Arrhythmia/Irregularities - Pain Is Patient Pain Free?: Yes Pain Location: none Pain Level: 0/10 - has had previous hip fracture and Right knee replacement done previously. Risk Factor Assessment - Chief Complaint Chief Complaint: yr old female patient of Dr. Segovia who presentst o cardiac rehab today following recent CABG done on 02/09/2021 at [facility] in [facility]. - Vital Signs Temperature: 97.3 F Pulse Ox: 18 Blood Pressure: 108/64 - Pulse Pulse Rate: 80 Pulse Rhythm: Regular - Hypertension Blood Pressure Sitting - Left Arm: 108/64 - Blood Cholesterol/Lipids Total Cholesterol (mg/dL) Goal = less than 200 mg/dL: 187 - 12/29/2020 HDL Cholesterol (mg/dL) Goal = less than 40 mg/dL: 56 LDL Cholesterol (mg/dL) Goal = less than 70 mg/dL: 95 Triglycerides (mg/dL) Goal = less than 150 mg/dL: 180 - Diabetes Diabetic History: Type II, Medication Dependent - Trulicty on Sunday's q/weekly adn the metformin 1,00mg BID. Nutrition Referral for Diabetes: Yes - Obesity Height: 5 ft 4.5 in Weight:: 216 lb Weight in Pounds: 216.0 lbs Weight Source: Standing Scale Body Mass Index (BMI): 36.5 Nutritional Referral for Obesity: Yes - Risk Stratification Risk Guidelines: Lowest Risk: Risk Factor for Smoking, Risk Factor for Diabetes, Risk Factor for Hypertension, Risk Factor for Depression, Moderate Risk: Risk Factor for Dyslipidemia, Risk Factor for Sedentary Lifestyle, Highest Risk: Risk Factor for Obesity - For Smoking Smoking Risk Guidelines: Smoking Low Risk: None or quit greater than 6 months ago. Smoking Moderate Risk: Smoker or quit 6 months or less ago. Smoking High Risk: Smoker - For Dyslipidemia Dyslipidemia Risk Guidelines: Low Risk: Moderate Risk: High Risk: 15-25% fat 25.1-29% fat >/= 30% fat. <7% sat fat 7-9% sat fat >9% sat fat. <150 mg chol 150-299 mg chol >/= 300 mg chol. LDL <100 LDL 100-129 LDL >/= 130. Chol/HDL ratio <5.0 Chol/HDL ratio 5.0-6.0 Chol/HDL ratio >6.0. Triglycerides <100 Triglycerides 100-149 Triglycerides >/= 150 - For Diabetes Mellitus Diabetes Risk Guidelines: Diabetes Low Risk: HgA1c <6.5% and/or FBG <120. Diabetes Moderate Risk: HgA1c 6.6-7.9% and/or FBG 120-180. Diabetes High Risk: HgA1c >/= 8% and/or FBG >180 - For Obesity/Overweight Obesity/Overweight Risk Guidelines: Obesity Low Risk: BMI <25.0. Obesity Moderate Risk: BMI 25-29.9. Obesity High Risk: BMI >/= 30.0 - For Hypertension Hypertension Risk Guidelines: Hypertension Low Risk: Systolic <120 and Diastolic <80. Hypertension Moderate Risk: Systolic 120-139 and Diastolic 80-89. Hypertension High Risk: Systolic >/= 140 and Diastolic >/= 90 - For Sedentary Lifestyle Sedentary Lifestyle Risk Guidelines: Sedentary Lifestyle Low Risk: >/= 1,500 kcal/week. Sedentary Lifestyle Moderate Risk: 700-1,499 kcal/week. Sedentary Lifestyle High Risk: < 700 kcal/week - For Depression Depression Risk Guidelines: Depression Low Risk: Not clinically depressed. Depression Moderate Risk: Mildly depressed. Depression High Risk: Clinically depressed - Family History Family History: Family History (Last Reviewed 01/31/21 @ 12:55 by Lety Larsen) Sister Pancreatic cancer Diabetes Heart disease Leukemia Breast cancer Hypertension Brother Diabetes Bone cancer Heart disease Hypertension CVA (cerebral vascular accident) Father No problems noted. Motivation - Motivation to Participate On a scale of 1 to 10, how prepared are you to commit to attending program?: 10 What do you see as barriers to successfully being able to complete the program?: none What do you see as the benefits of succesfully completing the program? In other words, what do you hope to get out of participating in the program?: improving life, energy and strength. Are there issues you are dealing with that will interfere with completing the program?: none Do you have a spouse or signficant other, family or friends who will help support you to complete the program?: yes
[2021-03-17 10:27] VITALS: BP 108/64; BMI 36.5
[2021-03-17 10:39] VITALS: BP 108/64; PULSE 80; TEMP 36.3; O2SAT 18; BMI 36.5
== END ==
PROVIDERS: PCP Family Medicine; Visit Provider Internal Medicine Cardiovascular Disease
DX: I25.10 Atherosclerotic heart disease of native coronary artery without angina pectoris (principal); E11.69 Type 2 diabetes mellitus with other specified complication; E78.5 Hyperlipidemia, unspecified; E66.9 Obesity, unspecified; Z95.1 Presence of aortocoronary bypass graft

== ENCOUNTER 2021-03-25 15:15 | Outpatient (RCR) | payer MEDICARE, OTHER, SELFPAY ==
[2021-03-17 10:27] VITALS: BMI 36.5
[2021-03-17 10:39] VITALS: BMI 36.5
== END 2021-03-25 23:59 ==
LOC: CR 15:15
PROVIDERS: PCP Family Medicine; Referring Provider Internal Medicine Cardiovascular Disease; Visit Provider Internal Medicine Cardiovascular Disease
DX: I25.10 Atherosclerotic heart disease of native coronary artery without angina pectoris (principal); Z95.1 Presence of aortocoronary bypass graft
CPT/HCPCS: 93798

== ENCOUNTER 2021-04-22 08:00 | Outpatient (RCR) | payer MEDICARE, OTHER, SELFPAY ==
[2021-03-17 10:27] VITALS: BMI 36.5
[2021-03-17 10:39] VITALS: BMI 36.5
--- NOTE | 2021-04-12 09:28 | PCM.CR.ITP ---
Diagnosis Exercise - 30-day Assessment - Visit Date of Eval: 04/12/21 Session #:: 10 - 100% compliant to date - Physician Prescribed Exercise Modalities: Treadmill, NuStep Frequency: 3x/week for 12 weeks [36 sessions] Intensity: 60-80% of age predicted maximum heart rate reserve Current METSs:: 2.0 unchanged Target Heart Rate:: 94-124 Current RPE:: 11 Maximum Excercise HR:: 96 Resting Blood Pressure: 136/68 - still somewhat elevated resting BPs Maximum Exercise Blood Pressure: 162/72 EKG Type: SR to sinus tach with occasional PAC - Outcomes & Goals Goals:: Verbalizes understanding of THR, RPE & goal METS by session 6, Documents in home exercise log/reports 30 min aerobic 5 day/wk by DC, Demonstrates accurate pulse taking by DC - Intervention & Plan Exercise Program Goals: Instruct on personal THR & RPE, Instruct on MET level & personal MET goal, Show patient to take own pulse /validate performance until accurate, Instruct on home exercise - 30-day Reassessments 30 day Reassessments:: Progressing - Physical Activity Home Exercise Physical Activity - Home Exercise: Safe Exercise, Warm-up, Self-monitoring, Cool-Down, Home Exercise > 30 min Daily, Sitting Time <3 hours/daily - Outcomes & Goals Outcomes/Goals: Demonstrates correct Warm-up/exercise Cool-Down (S3) if = 2.5 METs, Verbalizes symptoms of exercise intolerance by Session 3 (S3), Demonstrate safe equipment use (S3) & follows exercise prescrition (6) - Intervention & Plan Plan/Intervention: Instruct warm-up & cool-down if exercising at > 2 METs, Instruct on symptoms of exercise intolerance & actions to take, Instruct & monitor on saf, Assess intial functional capacity & safety risk - 30-day Reassessments 30 day Reassessments:: Progressing Nutrition - Initial Assessment Nutrition - 30-Day Assessment - Program Goals Nutrition Program Goals: LDL <100 optimal. 100 - 129 Near optimal. 130 - 159 Borderline High. 160 - 189 High. Total Cholesterol <200 desirable. 200 - 239 Borderline High. >/= 240 High. HDL < 40 Low >/=60 High. Triglycerides <150 desirable. <199 optimal. VlDL 5 - 40. HgbA1C <7%. BMI <25 Patient has diagnosis of Hyperlipidemia (ICD E78)?: Yes - Visit Date of Assessment:: 04/12/21 Session #:: 10 - Cholesterol/Lipids Triglycerides (mg/dL): 180 - 12/29/2020 Total Cholesterol (mg/dL): 187 LDL Cholesterol (mg/dL): 95 HDL Cholesterol (mg/dL): 56 Determine presence & major risk factors that modify LDL goal: Hypertension or hypertensive medication, Family history of premature CHD in Male < 55 years: female <65 yearsFa, Age men > 45 years; women >/= 55 years Outcomes/Goals: Pt IDs own risk factors & lifestyle modifications by Session 10, Verbalizes symptoms of angina & response by session 3., Pt independently manages Intervention/Plan: Instruct on personal lipid levels & lipid goals/NCEP guidelines, Instruct on cholesterol Referral to dietitian:: Yes - Medical Nutrition Therapy 30-day Reassessments:: Progressing - Diabetes (Other Core Measures) Diabetes Type: Diagnosis Type II ICD-10 E11 Fasting blood glucose:: 177 Hgb A1C (4.2 -6.3): 6.8 Insulin dependent injection/pump?: Yes - Dulaglutide 0.75mg/0.5ml Qweek Do you monitor your blood sugar at home?: Yes Referral to Diabetic Clinic:: Yes - [facility] & MNT Outcomes/Goals:: Able to state symptoms of, Able to state, Able to state Intervention/Plan:: Instruct on, Refer to, Instruct on 30-day Reassessments:: Progressing - Weight Mgt (Other Care) Not Applicable: No Height: 5 ft 4.5 in Weight:: 218 lb BMI: 36.8 Diagnosis Overweight/Obesity BMI> 30% ICD-10 E66: Yes Diagnosis High BMI/Morbid Obesity BMI> 35% ICD-10 Z68: Yes Outcomes/Goals: Pt sets, maintains & shows weight loss goal & trend during rehab Intervention/Plan: Instruct on ideal BMI & set weight loss goal w/patient, Assist pt to ID & incorporate diet changes for weight loss by S9, Refer to Structured Weight Loss program as appropriate, Encourage goal of using 250-300dcal per session for weight loss 30 day Reassessments:: Progressing - Healthy Eating Habits Will attend diet classes:: Yes Outcomes/Goals:: Consume diet rich in vegs,fruits,whole grain/high fiber,fish,lean meat, Limit sat/trans fats,cholesterol & added salts & sugars Intervention/Plan:: Assess current eating habits 30-day Reassessments:: Progressing - Education Gave educational materials for:: Signs & symptoms of hypoglycemia, Signs & symptoms of hyperglycemia, Relate diabetes to coronary artery disease, Healthy eating Nutrition - 60-Day Assessment Nutrition - 90-Day Assessment Nutrition - Final Assessment Medical - Initial Assessment Medical- 30-Day Assessment - Visit Date of Eval: 04/12/21 Session #:: 10 - Medication Compliance Preventative Medication(s):: Aspirin, Clopidogrel/P2Y12 inhibit, Statin/lipid, Beta leonard H/O mental health issues: depression, anxiety, or addiction?: No Doesn?t believe in the benefits of treatment?: No Believes medications are unnecessary or harmful?: No Has a concern about medication side effects?: No Expresses concern over the cost of medications?: No Outcomes/Goals: Verbalizes medications,desired effect & common side effects @ DC, Pt self-reports following medication regimen, Keeps card in wallet w/medications listed by DC Interventions/plans: Instruct on medication effects & side effects, Review medication list w/patient every two weeks, Instruct importance of taking meds as ordered & assist problem solving 30-day Reassessments:: Progressing - Tobacco Use Tobacco Use: Non-smoker - Hypertension Hypertension Diagnosis:: Hypertension ICD-10 I10 Resting Blood Pressure:: 136/68 [place] [employer] Hypertension Guidelines: [place] [employer] Hypertension Guidelines. Normal BP Less than 120/80. Elevated BP 120/80. Hypertension Stage 1: BP 130-139/80-89. Hypertesnion Stage 2: BP 140 or higher/90 or higher. Hypertension Crisis: BP higher than 180/120 Peak Exercise Blood Pressure:: 162/72 Outcomes/Goals: Able to verbalize/achieve optimal blood pressure <130/80, Incorporates diet changes & exercise for blood pressure control by DC Interventions/plan: Instruct on optimal blood pressure, hypertension & medications, Instruct on effects of sodium, alcohol, stress, exercise &hypertension 30 day Reassessments:: Progressing - Tobacco Cessation Referral Smoking Cessation Referral:: No Individual Education/Counseling:: No Education Schedule Given:: Yes Medical- 60-Day Assessment Medical- 90-Day Assessment Medical - Final Assessment Psychosocial - Initial Assess Psychosocial - 30-Day Assess - VIsit Date of Eval: 04/12/21 Session #:: 10 Not Applicable: Yes History of previous Mental disease:: No - Psychosocial Test Tool Used:: PHQ-9 Questionnaire phq-9 Severity: Severity. 1-4 Minimal Depression. 5-9 Mild Depression. 10-14 Moderate Depression. 15-19 Moderately Sever Depression. 20-27 Severe Depression. Rule: - Referral to Behavioral Health PS - Interventions: Yes Attend Stress Management Classes, No Referral to Behavioral Health if PHQ-9 score >9:, No Referral to [facility], No Referral to Physician if PHQ-9 if score is 5-9: - Outcomes/Goals: See list Psychosocial Outcomes/Goals:: ID's personal stressors & 2 strategies to manage stress by discharge - Intervention/Plan: See List Interventions/Plan:: Assess stressors,coping strategies & signs of derpression on admission, Instruct/assist pt to develop coping & personal stress Mgt strategies, Instruct patient to recognize signs & symptoms of depression, Instruct patient to recog - 30-day Reassessments: 30 day Reassessments:: Progressing Psychosocial - 60-Day Assess Psychosocial - 90-Day Assess Psychosocial - Final Assessmen Patient Health Questionnaire 30-Day Re-eval Assessment 1. Little interest or pleasure in doing things: More than half the days 2. Feeling down, depressed, or hopeless: Several days 3. Trouble falling or staying asleep, or sleeping too much: Nearly every day 4. Feeling tired or having little energy: Nearly every day 5. Poor appetite or overeating: More than half the days 6. Feeling bad about yourself -- or that you are a failure or have let yourself or your family down: Several days 7. Trouble concentrating on things, such as reading the newspaper or watching television: Nearly every day 8. Moving or speaking so slowly that other people could have noticed. Or the opposite - being so fidgety or restless that you have been moving around a lot more than usual: More than half the days 9. Thoughts that you would be better off , or of hurting yourself in some way: Not at all Total Score: 17 Self-Efficacy 30-Day Re-eval Assessment We would like to know how confident you are in doing certain activities. Please select your confidence level for:: Select your confidence level for the following using the scale 1-10 where 1 is not at all confident and 10 is totally confident. Your score is the average of all 6 responses. Fatigue: How confident are you that you can keep the fatigue caused by your disease from interfering with the things you want to do? Select Number: 9 Physical Discomfort or Pain: How confident are you that you can keep the physical discomfort or pain of your disease from interfering with the things you want to do? Select Number: 8 Emotional Distress: How confident are you that you can keep the emotional distress caused by your disease from interfering with the things you want to do? Select Number: 9 Other Symptoms or Health Problems: How confident are you that you can keep other symptoms or health problems from interfering with the things you want to do? Select Number: 8 Different Tasks and Activities: How confident are you that you can do the different tasks and activities needed to manage your health condition so as to reduce your need to see a doctor? Select Number: 9 Medication: How confident are you that you can do things other than just taking medication to reduce how much your illness affects your everyday life? Select Number: 9 Total Score:: 8 Nutrition Survey
[2021-04-12 09:37] VITALS: BP 136/68; BP 162/72; BMI 36.8
== END 2021-04-25 23:59 ==
LOC: CR 08:00
PROVIDERS: PCP Family Medicine; Referring Provider Internal Medicine Cardiovascular Disease; Visit Provider Internal Medicine Cardiovascular Disease
DX: I25.10 Atherosclerotic heart disease of native coronary artery without angina pectoris (principal); Z95.1 Presence of aortocoronary bypass graft; E78.5 Hyperlipidemia, unspecified; I10 Essential (primary) hypertension; E11.69 Type 2 diabetes mellitus with other specified complication; E66.9 Obesity, unspecified; Z68.36 Body mass index [BMI] 36.0-36.9, adult
CPT/HCPCS: 93798

== ENCOUNTER 2021-05-25 08:00 | Outpatient (RCR) | payer MEDICARE, OTHER, SELFPAY ==
[2021-03-17 10:39] VITALS: BMI 36.5
[2021-04-12 09:37] VITALS: BMI 36.8
[2021-04-26 00:37] VITALS: BP 136/68; BP 162/72
--- NOTE | 2021-05-13 07:21 | PCM.CR.ITP ---
Diagnosis Exercise - 60-day Assessment - Visit Date of Eval: 05/13/21 Session #:: 22 - Physician Prescribed Exercise Modalities: Treadmill, NuStep Frequency: 3x/week for 12 weeks [36 sessions] Intensity: 60-80% of age predicted maximum heart rate reserve Current METSs:: 3.5 unchanged fatigue and discomfort Target RPE 12-16:: Current RPE:: 12-13 Maximum Excercise HR:: 101 Resting Blood Pressure: 132/68 Maximum Exercise Blood Pressure: 178/80 EKG Type: NSR to sinus tach occasional PACs. - Outcomes & Goals Goals:: Verbalizes understanding of THR, RPE & goal METS by session 6, Documents in home exercise log/reports 30 min aerobic 5 day/wk by DC, Demonstrates accurate pulse taking by DC - Intervention & Plan Exercise Program Goals: Instruct on personal THR & RPE, Instruct on MET level & personal MET goal, Show patient to take own pulse /validate performance until accurate, Instruct on home exercise - 30-day Reassessments 30 day Reassessments:: Progressing - Physical Activity Home Exercise Physical Activity - Home Exercise: Safe Exercise, Warm-up, Self-monitoring, Cool-Down, Home Exercise > 30 min Daily, Sitting Time <3 hours/daily - Intervention & Plan Plan/Intervention: Instruct warm-up & cool-down if exercising at > 2 METs, Instruct on symptoms of exercise intolerance & actions to take, Instruct & monitor on saf, Assess intial functional capacity & safety risk - 30-day Reassessments 30 day Reassessments:: Progressing Nutrition - Initial Assessment Nutrition - 30-Day Assessment Nutrition - 60-Day Assessment - Program Goals Nutrition Program Goals: LDL <100 optimal. 100 - 129 Near optimal. 130 - 159 Borderline High. 160 - 189 High. Total Cholesterol <200 desirable. 200 - 239 Borderline High. >/= 240 High. HDL < 40 Low >/=60 High. Triglycerides <150 desirable. <199 optimal. VlDL 5 - 40. HgbA1C <7%. BMI <25 Patient has diagnosis of Hyperlipidemia (ICD E78)?: Yes - Visit Date of Assessment:: 05/13/21 Session #:: 22 - Cholesterol/Lipids Triglycerides (mg/dL): 180 - 12/29/2020 Total Cholesterol (mg/dL): 187 LDL Cholesterol (mg/dL): 95 HDL Cholesterol (mg/dL): 56 Determine presence & major risk factors that modify LDL goal: Hypertension or hypertensive medication, Family history of premature CHD in Male < 55 years: female <65 yearsFa, Age men > 45 years; women >/= 55 years Outcomes/Goals: Pt IDs own risk factors & lifestyle modifications by Session 10, Verbalizes symptoms of angina & response by session 3., Pt independently manages Intervention/Plan: Instruct on personal lipid levels & lipid goals/NCEP guidelines, Instruct on cholesterol Referral to dietitian:: Yes - MEdical Nutrition Therapy Why Weight program 30-day Reassessments:: Progressing - Diabetes (Other Core Measures) Diabetes Type: Diagnosis Type II ICD-10 E11 - in obese Insulin dependent injection/pump?: No Non-Insulin Dependent?: Yes - metformin 1,000mg BID Referral to Diabetic Clinic:: Yes Intervention/Plan:: Refer to 30-day Reassessments:: Progressing - Weight Mgt (Other Care) Not Applicable: No Height: 5 ft 4.5 in Weight:: 217 lb BMI: 36.6 Diagnosis Overweight/Obesity BMI> 30% ICD-10 E66: Yes Diagnosis High BMI/Morbid Obesity BMI> 35% ICD-10 Z68: Yes Outcomes/Goals: Pt sets, maintains & shows weight loss goal & trend during rehab Intervention/Plan: Instruct on ideal BMI & set weight loss goal w/patient, Assist pt to ID & incorporate diet changes for weight loss by S9, Refer to Structured Weight Loss program as appropriate, Encourage goal of using 250-300dcal per session for weight loss 30 day Reassessments:: Progressing - Healthy Eating Habits Will attend diet classes:: Yes Outcomes/Goals:: Consume diet rich in vegs,fruits,whole grain/high fiber,fish,lean meat, Limit sat/trans fats,cholesterol & added salts & sugars Intervention/Plan:: Assess current eating habits 30-day Reassessments:: Progressing - Education Gave educational materials for:: Healthy eating Nutrition - 90-Day Assessment Nutrition - Final Assessment Medical - Initial Assessment Medical- 30-Day Assessment Medical- 60-Day Assessment - Visit Date of Eval: 05/13/21 Session #:: 22 - Medication Compliance Preventative Medication(s):: Aspirin, Clopidogrel/P2Y12 inhibit, Statin/lipid, Beta leonard H/O mental health issues: depression, anxiety, or addiction?: No Doesn?t believe in the benefits of treatment?: No Believes medications are unnecessary or harmful?: No Has a concern about medication side effects?: No Expresses concern over the cost of medications?: No Outcomes/Goals: Verbalizes medications,desired effect & common side effects @ DC, Pt self-reports following medication regimen, Keeps card in wallet w/medications listed by DC Interventions/plans: Instruct on medication effects & side effects, Review medication list w/patient every two weeks, Instruct importance of taking meds as ordered & assist problem solving 30-day Reassessments:: Progressing - Tobacco Use Tobacco Use: Non-smoker - Hypertension Hypertension Diagnosis:: Hypertension ICD-10 I10 Resting Blood Pressure:: 132/68 [place] [employer] Hypertension Guidelines: [place] [employer] Hypertension Guidelines. Normal BP Less than 120/80. Elevated BP 120/80. Hypertension Stage 1: BP 130-139/80-89. Hypertesnion Stage 2: BP 140 or higher/90 or higher. Hypertension Crisis: BP higher than 180/120 Peak Exercise Blood Pressure:: 178/80 Outcomes/Goals: Able to verbalize/achieve optimal blood pressure <130/80, Incorporates diet changes & exercise for blood pressure control by DC Interventions/plan: Instruct on optimal blood pressure, hypertension & medications, Instruct on effects of sodium, alcohol, stress, exercise &hypertension 30 day Reassessments:: Progressing - Tobacco Cessation Referral Smoking Cessation Referral:: No Individual Education/Counseling:: No Education Schedule Given:: Yes Medical- 90-Day Assessment Medical - Final Assessment Psychosocial - Initial Assess Psychosocial - 30-Day Assess Psychosocial - 60-Day Assess - VIsit Date of Eval: 05/13/21 Session #:: 22 Not Applicable: Yes History of previous Mental disease:: No - Psychosocial Test Tool Used:: PHQ-9 Questionnaire phq-9 Severity: Severity. 1-4 Minimal Depression. 5-9 Mild Depression. 10-14 Moderate Depression. 15-19 Moderately Sever Depression. 20-27 Severe Depression. Rule: - Referral to Behavioral Health PS - Interventions: Yes Attend Stress Management Classes, No Referral to Behavioral Health if PHQ-9 score >9:, No Referral to [facility], No Referral to Physician if PHQ-9 if score is 5-9: - Outcomes/Goals: See list Psychosocial Outcomes/Goals:: ID's personal stressors & 2 strategies to manage stress by discharge - Intervention/Plan: See List Interventions/Plan:: Assess stressors,coping strategies & signs of derpression on admission, Instruct/assist pt to develop coping & personal stress Mgt strategies, Instruct patient to recognize signs & symptoms of depression, Instruct patient to recog - 30-day Reassessments: 30 day Reassessments:: Progressing Psychosocial - 90-Day Assess Psychosocial - Final Assessmen Patient Health Questionnaire 60-Day Re-eval Assessment 1. Little interest or pleasure in doing things: Several days 2. Feeling down, depressed, or hopeless: Not at all 3. Trouble falling or staying asleep, or sleeping too much: More than half the days 4. Feeling tired or having little energy: More than half the days 5. Poor appetite or overeating: Several days 6. Feeling bad about yourself -- or that you are a failure or have let yourself or your family down: Several days 7. Trouble concentrating on things, such as reading the newspaper or watching television: More than half the days 8. Moving or speaking so slowly that other people could have noticed. Or the opposite - being so fidgety or restless that you have been moving around a lot more than usual: More than half the days 9. Thoughts that you would be better off , or of hurting yourself in some way: Not at all How difficult have these problems made it for you to do your work, take care of things at home, or get along with other people?: Somewhat difficult Total Score: 11 Self-Efficacy 60-Day Re-eval Assessment We would like to know how confident you are in doing certain activities. Please select your confidence level for:: Select your confidence level for the following using the scale 1-10 where 1 is not at all confident and 10 is totally confident. Your score is the average of all 6 responses. Fatigue: How confident are you that you can keep the fatigue caused by your disease from interfering with the things you want to do? Select Number: 9 Physical Discomfort or Pain: How confident are you that you can keep the physical discomfort or pain of your disease from interfering with the things you want to do? Select Number: 8 Emotional Distress: How confident are you that you can keep the emotional distress caused by your disease from interfering with the things you want to do? Select Number: 9 Other Symptoms or Health Problems: How confident are you that you can keep other symptoms or health problems from interfering with the things you want to do? Select Number: 7 Different Tasks and Activities: How confident are you that you can do the different tasks and activities needed to manage your health condition so as to reduce your need to see a doctor? Select Number: 8 Medication: How confident are you that you can do things other than just taking medication to reduce how much your illness affects your everyday life? Select Number: 9 Total Score:: 8 Nutrition Survey
[2021-05-13 07:30] VITALS: BP 132/68; BP 178/80; BMI 36.6
== END 2021-05-25 23:59 ==
LOC: CR 08:00
PROVIDERS: PCP Family Medicine; Referring Provider Internal Medicine Cardiovascular Disease; Visit Provider Internal Medicine Cardiovascular Disease
DX: I25.10 Atherosclerotic heart disease of native coronary artery without angina pectoris (principal); Z95.1 Presence of aortocoronary bypass graft; E78.5 Hyperlipidemia, unspecified; I10 Essential (primary) hypertension; E11.69 Type 2 diabetes mellitus with other specified complication; E66.9 Obesity, unspecified
CPT/HCPCS: 93798

== ENCOUNTER 2021-06-15 08:00 | Outpatient (RCR) | payer MEDICARE, OTHER, SELFPAY ==
[2021-03-17 10:39] VITALS: BMI 36.5
[2021-05-13 07:30] VITALS: BMI 36.6
[2021-05-26 00:27] VITALS: BP 132/68; BP 178/80
[2021-06-06 14:25] VITALS: BMI 36.3
--- NOTE | 2021-06-10 07:07 | CR.ITP_ITS ---
Diagnosis Exercise - Final/Discharge - Visit Date of Eval: 06/10/21 Session #:: 33 - Physician Prescribed Exercise Modalities: Treadmill, NuStep Frequency: 3x/week for 12 weeks [36 sessions] Intensity: 60-80% of age predicted maximum heart rate reserve Current METSs:: 3.5 unchanged per patient request Current RPE:: 11-12 Maximum Excercise HR:: 99 Resting Blood Pressure: 124/60 - controlled with medications Maximum Exercise Blood Pressure: 148/80 EKG Type: NSR to sinus tach w/occas. PACs - Outcomes & Goals Goals:: Verbalizes understanding of THR, RPE & goal METS by session 6, Documents in home exercise log/reports 30 min aerobic 5 day/wk by DC, Demonstrates accurate pulse taking by DC - Intervention & Plan Exercise Program Goals: Instruct on personal THR & RPE, Instruct on MET level & personal MET goal, Show patient to take own pulse /validate performance until accurate, Instruct on home exercise - Physical Activity Home Exercise Physical Activity - Home Exercise: Safe Exercise, Warm-up, Self-monitoring, Cool-Down, Home Exercise > 30 min Daily, Sitting Time <3 hours/daily - Outcomes & Goals Outcomes/Goals: Demonstrates correct Warm-up/exercise Cool-Down (S3) if = 2.5 METs, Verbalizes symptoms of exercise intolerance by Session 3 (S3), Demonstrate safe equipment use (S3) & follows exercise prescrition (6) - Intervention & Plan Plan/Intervention: Instruct warm-up & cool-down if exercising at > 2 METs, Instruct on symptoms of exercise intolerance & actions to take, Instruct & monitor on saf, Assess intial functional capacity & safety risk - 30-day Reassessments 30 day Reassessments:: Not Met - Goal was to achieve 5.0 MET level. Nutrition - Initial Assessment Nutrition - 30-Day Assessment Nutrition - 60-Day Assessment Nutrition - 90-Day Assessment Nutrition - Final Assessment - Program Goals Nutrition Program Goals: LDL <100 optimal. 100 - 129 Near optimal. 130 - 159 Borderline High. 160 - 189 High. Total Cholesterol <200 desirable. 200 - 239 Borderline High. >/= 240 High. HDL < 40 Low >/=60 High. Triglycerides <150 desirable. <199 optimal. VlDL 5 - 40. HgbA1C <7%. BMI <25 Patient has diagnosis of Hyperlipidemia (ICD E78)?: Yes - Visit Date of Assessment:: 06/10/21 Session #:: 33 - Cholesterol/Lipids Triglycerides (mg/dL): 180 - 12/29/2020 Total Cholesterol (mg/dL): 187 LDL Cholesterol (mg/dL): 95 HDL Cholesterol (mg/dL): 56 Determine presence & major risk factors that modify LDL goal: Hypertension or hypertensive medication, Family history of premature CHD in Male < 55 years: female <65 yearsFa, Age men > 45 years; women >/= 55 years Outcomes/Goals: Pt IDs own risk factors & lifestyle modifications by Session 10, Verbalizes symptoms of angina & response by session 3., Pt independently manages Intervention/Plan: Instruct on personal lipid levels & lipid goals/NCEP guidelines, Instruct on cholesterol Referral to dietitian:: No - Patient declined services 30-day Reassessments:: Not Met - Diabetes (Other Core Measures) Diabetes Type: Not Applicable - Weight Mgt (Other Care) Not Applicable: No Height: 5 ft 4.5 in Weight:: 217 lb BMI: 36.6 Diagnosis Overweight/Obesity BMI> 30% ICD-10 E66: Yes Diagnosis High BMI/Morbid Obesity BMI> 35% ICD-10 Z68: Yes Outcomes/Goals: Pt sets, maintains & shows weight loss goal & trend during rehab Intervention/Plan: Instruct on ideal BMI & set weight loss goal w/patient, Assist pt to ID & incorporate diet changes for weight loss by S9, Encourage goal of using 250-300dcal per session for weight loss 30 day Reassessments:: Not Met - Patient lost no weight, refused participation in our structured weight loss program - Healthy Eating Habits Will attend diet classes:: Yes Outcomes/Goals:: Consume diet rich in vegs,fruits,whole grain/high fiber,fish,le an meat, Limit sat/trans fats,cholesterol & added salts & sugars Intervention/Plan:: Assess current eating habits Medical - Initial Assessment Medical- 30-Day Assessment Medical- 60-Day Assessment Medical- 90-Day Assessment Medical - Final Assessment - Visit Date of Eval: 06/10/21 Session #:: 33 - Medication Compliance Preventative Medication(s):: Aspirin, Clopidogrel/P2Y12 inhibit, Statin/lipid, Beta leonard H/O mental health issues: depression, anxiety, or addiction?: No Doesn?t believe in the benefits of treatment?: No Believes medications are unnecessary or harmful?: No Has a concern about medication side effects?: No Expresses concern over the cost of medications?: No Outcomes/Goals: Verbalizes medications,desired effect & common side effects @ DC, Pt self-reports following medication regimen, Keeps card in wallet w/medications listed by DC Interventions/plans: Instruct on medication effects & side effects, Review medication list w/patient every two weeks, Instruct importance of taking meds as ordered & assist problem solving 30-day Reassessments:: Progressing - Tobacco Use Tobacco Use: Non-smoker - Hypertension Hypertension Diagnosis:: Hypertension ICD-10 I10 Resting Blood Pressure:: 124/60 - controlled with medication [place] [employer] Hypertension Guidelines: [place] [employer] Hypertension Guidelines. Normal BP Less than 120/80. Elevated BP 120/80. Hypertension Stage 1: BP 130-139/80-89. Hypertesnion Stage 2: BP 140 or higher/90 or higher. Hypertension Crisis: BP higher than 180/120 Peak Exercise Blood Pressure:: 148/80 Outcomes/Goals: Able to verbalize/achieve optimal blood pressure <130/80, Incorporates diet changes & exercise for blood pressure control by DC Interventions/plan: Instruct on optimal blood pressure, hypertension & medications, Instruct on effects of sodium, alcohol, stress, exercise &hypertension 30 day Reassessments:: Progressing - Tobacco Cessation Referral Smoking Cessation Referral:: No Individual Education/Counseling:: No Education Schedule Given:: Yes Psychosocial - Initial Assess Psychosocial - 30-Day Assess Psychosocial - 60-Day Assess Psychosocial - 90-Day Assess Psychosocial - Final Assessmen - VIsit Date of Eval: 06/10/21 Session #:: 33 Not Applicable: Yes History of previous Mental disease:: No - Psychosocial Test Tool Used:: PHQ-9 Questionnaire phq-9 Severity: Severity. 1-4 Minimal Depression. 5-9 Mild Depression. 10-14 Moderate Depression. 15-19 Moderately Sever Depression. 20-27 Severe Depression. Rule: - Referral to Behavioral Health PS - Interventions: Yes Attend Stress Management Classes, No Referral to Behavioral Health if PHQ-9 score >9:, No Referral to [facility], No Referral to Physician if PHQ-9 if score is 5-9: - Outcomes/Goals: See list Psychosocial Outcomes/Goals:: ID's personal stressors & 2 strategies to manage stress by discharge - Intervention/Plan: See List Interventions/Plan:: Assess stressors,coping strategies & signs of derpression on admission, Instruct/assist pt to develop coping & personal stress Mgt strategies, Instruct patient to recognize signs & symptoms of depression, Instruct patient to recog - 30-day Reassessments: 30 day Reassessments:: Progressing Patient Health Questionnaire Discharge Assessment 1. Little interest or pleasure in doing things: Several days 2. Feeling down, depressed, or hopeless: Not at all 3. Trouble falling or staying asleep, or sleeping too much: Several days 4. Feeling tired or having little energy: Several days 5. Poor appetite or overeating: Not at all 6. Feeling bad about yourself -- or that you are a failure or have let yourself or your family down: Not at all 7. Trouble concentrating on things, such as reading the newspaper or watching television: Several days 8. Moving or speaking so slowly that other people could have noticed. Or the opposite - being so fidgety or restless that you have been moving around a lot more than usual: Several days 9. Thoughts that you would be better off , or of hurting yourself in some way: Not at all How difficult have these problems made it for you to do your work, take care of things at home, or get along with other people?: Somewhat difficult Total Score: 5 Self-Efficacy Discharge Assessment We would like to know how confident you are in doing certain activities. Please select your confidence level for:: Select your confidence level for the following using the scale 1-10 where 1 is not at all confident and 10 is totally confident. Your score is the average of all 6 responses. Fatigue: How confident are you that you can keep the fatigue caused by your disease from interfering with the things you want to do? Select Number: 9 Physical Discomfort or Pain: How confident are you that you can keep the physical discomfort or pain of your disease from interfering with the things you want to do? Select Number: 9 Emotional Distress: How confident are you that you can keep the emotional distress caused by your disease from interfering with the things you want to do? Select Number: 9 Other Symptoms or Health Problems: How confident are you that you can keep other symptoms or health problems from interfering with the things you want to do? Select Number: 9 Different Tasks and Activities: How confident are you that you can do the different tasks and activities needed to manage your health condition so as to reduce your need to see a doctor? Select Number: 9 Medication: How confident are you that you can do things other than just taking medication to reduce how much your illness affects your everyday life? Nutrition Survey
[2021-06-10 07:21] VITALS: BP 124/60; BP 148/80; BMI 36.6
== END 2021-06-25 23:59 ==
LOC: CR 08:00
PROVIDERS: PCP Family Medicine; Referring Provider Internal Medicine Cardiovascular Disease; Visit Provider Internal Medicine Cardiovascular Disease
DX: Z95.1 Presence of aortocoronary bypass graft (principal); I25.10 Atherosclerotic heart disease of native coronary artery without angina pectoris; E78.5 Hyperlipidemia, unspecified; E11.8 Type 2 diabetes mellitus with unspecified complications; I10 Essential (primary) hypertension
CPT/HCPCS: 93798

== ENCOUNTER → 2021-07-27 11:00 | Outpatient (CLI) | payer MEDICARE, OTHER, SELFPAY ==
[2021-06-10 07:21] VITALS: BMI 36.6
[2021-07-27 11:57] LABS: AST(SGOT) 15 U/L (15-37); Alanine Aminotransfer ALT/SGPT 23 U/L (13-56); Albumin, Serum 3.9 g/dL (3.2-5.0); Alkaline Phosphatase 82 U/L (45-117); Bilirubin, Direct 0.19 mg/dL (0.00-0.30); Cholesterol 203 mg/dL (200); Globulin 3.4 g/dL (2.2-4.2); High Density Lipoprotein 60 mg/dL; Protein, Total 7.3 g/dL (6.4-8.2); Triglycerides 172 mg/dL; Very Low Density Lipoprotein 34 mg/dL (5-40)
== END ==
PROVIDERS: PCP Family Medicine; Visit Provider Physician Assistant Medical
DX: E78.00 Pure hypercholesterolemia, unspecified (principal); E78.5 Hyperlipidemia, unspecified
CPT/HCPCS: 36415; 80061; 80076

== ENCOUNTER → 2021-08-31 16:36 | Outpatient (CLI) | payer MEDICARE, OTHER, SELFPAY ==
[2021-06-10 07:21] VITALS: BMI 36.6
[2021-08-31 18:09] LABS: Hemoglobin A1c 6.5 % (3.8-5.6)
[2021-08-31 18:10] LABS: Anion Gap 7 (5-15); BUN 16 mg/dL (7-18); BUN/Creat Ratio 18.4 RATIO (10-20); Calcium,Total 10.7 mg/dL (8.5-10.1); Chloride 101 mmol/L (98-107); Creatinine, Serum 0.87 mg/dL (0.55-1.02); EST Glomerular Filtration Rate 68 mL/min (>60); Est Glom Filt Rate - Afr Amer 82 mL/min (>60); Glucose 160 mg/dL (74-106); Potassium 3.7 mmol/L (3.5-5.1); Sodium Level 139 mmol/L (136-145)
== END ==
PROVIDERS: PCP Family Medicine; Referring Provider Family Medicine; Visit Provider Family Medicine
DX: E11.9 Type 2 diabetes mellitus without complications (principal)
CPT/HCPCS: 36415; 80048; 83036

== ENCOUNTER 2021-09-05 01:48 | Observation (INO) | payer MEDICARE, OTHER, SELFPAY ==
[2021-06-10 07:21] VITALS: BMI 36.6
[2021-09-05] VITALS (9 sets, daily range): BP systolic 112–142; BP diastolic 53–70; PULSE 63–77; RESP 15–18; TEMP 36.1–36.7; O2SAT 95–97; BMI 31.2; BMI 36.4
--- NOTE | 2021-09-05 02:07 | EKG12_ITS ---
Test Reason : CP Blood Pressure : / mmHG Vent. Rate : 066 BPM Atrial Rate : 066 BPM P-R Int : 150 ms QRS Dur : 088 ms QT Int : 402 ms P-R-T Axes : -02 007 004 degrees QTc Int : 421 ms Normal sinus rhythm with sinus arrhythmia Septal infarct , age undetermined Inferior infarct , age undetermined Abnormal ECG Confirmed by SUDHIR CHERY, IAN ([id number]), make up editor JESSICA HOFFMAN ([id number]) on 09/05/2021 1:11:34 PM Referred By: YON Confirmed By:IAN PEGUERO MD
--- NOTE | 2021-09-05 02:08 | EDS_ITS ---
HPI History of Present Illness Chief Complaint: Chest Pain Informant: patient Narrative Narrative: Patient had onset of some chest pressure to the left side of her chest at about 11:00 this evening. It radiated to her axilla and a little bit down the inside of her left arm. She had a little dyspnea with it. No nausea vomiting or diaphoresis. She took a nitroglycerin and it got better. But then it came back in about 15 minutes. She took a second nitroglycerin that helped it but now is down to just a dull ache on the left side. She just still feels that it has not gone completely away. She has no pleuritic pain. No fevers or chills. She has not been ill recently. Patient does have known heart disease. She had several stents. In January of this year she had triple bypass done at [facility]. She is only had 1 other episode where she took nitroglycerin and that was about 2 months ago where she took a single dose. She told her flat surfacer jewel. She was told to come to the hospital if she has to do this again. [facility] Medical History Atherosclerotic heart disease of [place] coronary artery without angina pectoris Bilateral malignant neoplasm of breast in female Breast cancer Chemotherapy induced diarrhea Chemotherapy management, encounter for Diabetes mellitus type 2 in obese Essential hypertension Fracture of hip, right, closed Genetic counseling Heel spur History of DVT (deep vein thrombosis) History of left heart catheterization (LHC) (~02/02/21) HLD (hyperlipidemia) Mass of left breast Nonrheumatic mitral valve regurgitation Nonrheumatic tricuspid (valve) insufficiency ZITA on CPAP Osteoarthritis PORT PLACEMENT Presence of stent in coronary artery (~03/12/12) Pulmonary hypertension Home Medications potassium chloride 20 meq PO BIDCM tab 07/29/19 [Rx Last Taken Unknown] aspirin 81 mg chewable tablet 81 mg PO DAILY tab 05/24/20 [History Last Taken 02/02/21] ergocalciferol (vitamin D2) 1,250 mcg (50,000 unit) capsule 50,000 unit PO 2XW cap 05/24/20 [History Last Taken Unknown] calcium citrate 315 mg calcium-vitamin D3 6.25 mcg (250 unit) tablet 1 tablet PO BID 02/22/21 [History Last Taken Unknown] dicyclomine 20 mg tablet 20 mg PO Q6H tablet 02/22/21 [History Last Taken Unknown] dulaglutide 0.75 mg/0.5 mL subcutaneous pen injector 0.75 mg SC QWEEK 02/22/21 [History Last Taken Unknown] polyethylene glycol 3350 17 gram oral powder packet 17 gm PO DAILY 02/22/21 [History Last Taken Unknown] metformin 1,000 mg tablet 1,000 mg PO BID 03/09/21 [History Last Taken Unknown] anastrozole 1 mg PO DAILY 90 Days #90 tab 06/06/21 [Rx Last Taken Unknown] Breast prosthesis (left) #1 ea 06/14/21 [Rx Last Taken Unknown] Breast prosthesis (right) #1 ea 06/14/21 [Rx Last Taken Unknown] mastectomy bra #12 ea 06/14/21 [Rx Last Taken Unknown] clopidogrel 75 mg tablet 75 mg PO DAILY #30 tab 06/22/21 [Rx Last Taken Unknown] atorvastatin 10 mg tablet 10 mg PO QHS #90 tab 06/23/21 [Rx Last Taken Unknown] metoprolol tartrate 25 mg tablet 25 mg PO BID #180 tab 07/22/21 [Rx Last Taken Unknown] nitroglycerin 0.4 mg sublingual tablet 0.4 mg SL Q5M PRN #25 tab 07/22/21 [Rx Last Taken Unknown] ramipril 2.5 mg capsule 2.5 mg PO DAILY #90 cap 08/16/21 [Rx Last Taken Unknown] hydrochlorothiazide 25 mg tablet 25 mg PO DAILY #90 tab 08/17/21 [Rx Last Taken Unknown] Allergy/AdvReac Type Severity Reaction Status Date / Time iodine Allergy Severe Rash Verified 09/05/21 01:51 povidone-iodine AdvReac Severe Itching Verified 09/05/21 01:51 [From Betadine] pravastatin sodium AdvReac Severe LEG CRAMPS Verified 09/05/21 01:51 [From Pravachol] rosuvastatin calcium AdvReac Severe LEG CRAMPS Verified 09/05/21 01:51 [From Crestor] simvastatin AdvReac Severe LEG CRAMPS Verified 09/05/21 01:51 soap [From Betadine] AdvReac Severe Itching Verified 09/05/21 01:51 Family History Sister Pancreatic cancer Diabetes Heart disease Leukemia Breast cancer Hypertension Brother Diabetes Bone cancer Heart disease Hypertension CVA (cerebral vascular accident) Father No problems noted. Surgical History History of bilateral mastectomy History of carpal tunnel surgery History of cholecystectomy History of colonoscopy History of coronary artery bypass graft x 3 (~02/09/21) History of knee joint replacement History of right breast biopsy Postsurgical percutaneous transluminal coronary angioplasty (PTCA) status Presence of coronary angioplasty implant and graft (~03/12/12) S/P coronary artery bypass graft x 3 (~02/09/21) Social History Smoking Status: Never smoker alcohol intake: never substance use type: does not use caffeine: Yes Type: tea Number of servings: 1 ROS ROS ED Constitutional Constitutional ED: Denies chills, subjective or sweats Eyes Eyes: Denies change in vision ENT ENT ED: Denies rhinorrhea or sore throat Cardiovascular Cardiovascular: Reports chest pain; Denies palpitations Respiratory/Chest Respiratory/Chest: Reports dyspnea; Denies cough or sputum Gastrointestinal Gastrointestinal: Denies nausea or vomiting Musculoskeletal Musculoskeletal: Reports other Details: Patient does have radiation to the left arm as above. ; Denies back pain or neck pain Integumentary Denies rash Neurologic Neurologic: Denies headache(s), paresthesias or weakness Psychiatric Psychiatric: Denies anxiety or depression Endocrine Endocrinology: Denies polyuria Hematologic/Lymphatic Hematologic/Lymphatic: Denies easy bleeding or easy bruising Allergic/Immunologic Allergic/Immunologic ED: Denies urticaria EXAM Physical Exam Const Vital Signs: 09/05/21 01:51 09/05/21 01:57 09/05/21 02:08 Temperature 96.9 F L Temperature Source Temporal Pulse Rate 66 Respiratory Rate 16 Respiratory Effort Normal Respiratory Pattern Normal Blood Pressure 133/69 H Blood Pressure Mean 90 Pulse Ox 97 Oxygen Delivery Method Room Air Room Air 09/05/21 02:12 09/05/21 02:41 Temperature Temperature Source Pulse Rate 69 Respiratory Rate Respiratory Effort Respiratory Pattern Blood Pressure 124/65 H 112/57 L Blood Pressure Mean 75 Pulse Ox Oxygen Delivery Method Positive well nourished and well developed General Appearance ED: well developed and NAD HEENT normocephalic and atraumatic Eyes General Eye ED: Negative for pale conjunctiva or scleral icterus Neck no JVD Chest Wall palpation of chest normal Resp normal respiratory effort Auscultation: Negative for rales, rhonchi or wheezes Cardio regular rate and regular rhythm GI normal to inspection, nondistended, normoactive bowel sounds, soft to palpation and non-tender Back/Spine no CVA tenderness Extremity General Extremety ED: Negative for edema or tenderness General Extremity: Negative for edema Neuro Sensorium / Orientation: awake and alert Psych mental status grossly normal Skin no rashes or lesions noted and no wounds Heart Score History: Moderately Suspicious ECG: Nonspecific Repolarization Age: >/= 65 years Risk Factors: >/= 3 Risk Factors or History of CAD Troponin: </= Normal Limit Score: 6 MDM MDM MDM Narrative Medical decision making narrative: Patient's blood work including CBC, electrolytes glucose and troponin show no acute process. Chest x-ray showed no acute process. EKG was okay and unchanged. However, patient has high heart score and high risk profile. I did discuss case with the hospitalist and the patient will be brought in the hospital. Lab Data Attestation: I reviewed the patient's lab results. Labs: Laboratory Results - last 24 hr 09/05/21 09/05/21 01:56 01:56 WBC 8.7 RBC 4.57 Hgb 13.0 Hct 40.7 MCV 89.1 MCH 28.4 MCHC 31.9 L RDW Std Deviation 44.9 H RDW Coeff of [place]uel 13.8 Plt Count 376 MPV 9.9 Immature Gran % (Auto) 0.300 Neut % (Auto) 52.4 Lymph % (Auto) 33.5 [place] % (Auto) 10.0 Eos % (Auto) 3.1 Baso % (Auto) 0.7 Absolute Neuts (auto) 4.5 Absolute Lymphs (auto) 2.90 Nucleated RBC % 0 Sodium 142 Potassium 3.9 Chloride 106 Carbon Dioxide 31.0 Anion Gap 5 BUN 11 Creatinine 0.75 Estim Creat Clear Calc 44.41 Est GFR (MDRD) Af Amer 97 Est GFR (MDRD) Non-Af 80 BUN/Creatinine Ratio 14.6 Glucose 111 H Calcium 9.5 Troponin I High Sens 10 Radiography Diagnostic Testing: Clinical Impression(s) from Imaging Studies Chest X-Ray 09/05/21 02:15 IMPRESSION: No acute findings in the chest. at 0239 Reported and signed by: Rito Kwon MD Electronically Signed: Rito Kwon MD at 2:38 EDT Tel , Service support , EKG Initial EKG: Comments: EKG done for chest pain read by me shows normal sinus rhythm with some sinus arrhythmia and overall rate of 66. She had nonspecific ST changes mostly anterior with slightly poor R wave progression. However this is similar to June of this year. No sign of acute ST elevation or depression consistent with infarct or ischemia. CO interval, QRS duration and QTc normal. Discharge Plan Triage Chief Complaint: Chest Pain ED Provider: Hernando Guerrero Dx/Rx/DC Orders Clinical Impression: Chest pain Primary Care Provider: Jb Cast Disposition Disposition: Acute Care Hospital [facility]
[2021-09-05] MEDS: Nitroglycerin SL (ED/IMG/CATH) 0.4 MG TABLET SL (02:12)
--- NOTE | 2021-09-05 02:15 | RAD_ITS ---
EXAM: XR CHEST, 1 VIEW : 1945 CLINICAL INDICATION: chest pain TECHNIQUE: Frontal view of the chest. This report was created using [employer] report generation technology. COMPARISON: 01/28/21 FINDINGS: LUNGS AND PLEURAL SPACES: Unremarkable. No consolidation or edema. No pneumothorax. No effusion. HEART: Mild enlargement of the cardiac silhouette. MEDIASTINUM: Surgical changes of the mediastinum. BONES/JOINTS: Unremarkable. SOFT TISSUES: Unremarkable. RAD/Chest 1 View (Portable) IMPRESSION: No acute findings in the chest. at 0239 Reported and signed by: Rito Kwon MD Electronically Signed: Rito Kwon MD at 2:38 EDT Tel , Service support ,
[2021-09-05 02:18] LABS: Absolute Neutrophil Count 4.5 X10^3/uL (2.0-7.7); Basophil# 0.06 X10^3/uL; Basophil% 0.7 % (0-1); Eosinophil# 0.27 X10^3/uL; Eosinophils% 3.1 % (0-5); Hematocrit 40.7 % (37-47); Lymphocyte % 33.5 % (19-41); Mean Corp Hgb Conc 31.9 g/dL (32-36); Mean Corpuscular Hgb 28.4 pg (27.0-32.0); Mean Corpuscular Volume 89.1 fL (81-99); Mean Platelet Vol. 9.9 fl (6.2-12.0); Monocyte# 0.87 X10^3/uL; NRBC Flagged by Analyzer 0 % (0-5); Neutrophil # 4.53 X10^3/uL (2.7-7.7); Neutrophil % 52.4 % (47-70); Platelet Count 376 K/mm3 (150-450); RBC Distribution Width CV 13.8 % (11.6-14.6); RBC Distribution Width SD 44.9 fl (35.1-43.9); Red Blood Count 4.57 M/mm3 (4.2-5.4); White Blood Count 8.7 K/mm3 (4.4-11.0)
[2021-09-05 02:27] LABS: Anion Gap 5 (5-15); BUN 11 mg/dL (7-18); BUN/Creat Ratio 14.6 RATIO (10-20); Calcium,Total 9.5 mg/dL (8.5-10.1); Chloride 106 mmol/L (98-107); Creatinine, Serum 0.75 mg/dL (0.55-1.02); EST Glomerular Filtration Rate 80 mL/min (>60); Est Glom Filt Rate - Afr Amer 97 mL/min (>60); Estimated Creatinine Clearance 44.41 ml/min; Glucose 111 mg/dL (74-106); Potassium 3.9 mmol/L (3.5-5.1); Sodium Level 142 mmol/L (136-145); Troponin-I HS 10 pg/mL (3.0-54.0)
--- NOTE | 2021-09-05 03:54 | HP.PCM.HOS_ITS ---
HPI - General HPI Narrative GABBY TOWNSEND, is a 75 F with a significant history of breast cancer status post double mastectomy; CAD status post CABG and 3 coronary stents who presents to the emergency department with a persistent left sided chest pain that radiated to under her left armpit. She described the pain as sharp and dull aching. She took 2 nitroglycerin at home and each gave her some relief only for her pain to return. At emergent department she was given nitroglycerin that helped with her pain. She denies any aggravating factors to the pain. Associated with her symptom is mild shortness of breath. Patient denies any nausea, vomiting and diaphoresis. In January 2021 patient had a triple-vessel CABG at [facility]. Patient follows up with Dr. Segovia, cardiology. [facility] Medical History Atherosclerotic heart disease of [place] coronary artery without angina pectoris Bilateral malignant neoplasm of breast in female Breast cancer Chemotherapy induced diarrhea Chemotherapy management, encounter for Diabetes mellitus type 2 in obese Essential hypertension Fracture of hip, right, closed Genetic counseling Heel spur History of DVT (deep vein thrombosis) History of left heart catheterization (LHC) (~02/02/21) HLD (hyperlipidemia) Mass of left breast Nonrheumatic mitral valve regurgitation Nonrheumatic tricuspid (valve) insufficiency ZITA on CPAP Osteoarthritis PORT PLACEMENT Presence of stent in coronary artery (~03/12/12) Pulmonary hypertension Home Medications potassium chloride 20 meq PO BIDCM tab 07/29/19 [Rx Last Taken Unknown] aspirin 81 mg chewable tablet 81 mg PO DAILY tab 05/24/20 [History Last Taken 02/02/21] ergocalciferol (vitamin D2) 1,250 mcg (50,000 unit) capsule 50,000 unit PO 2XW cap 05/24/20 [History Last Taken Unknown] calcium citrate 315 mg calcium-vitamin D3 6.25 mcg (250 unit) tablet 1 tablet PO BID 02/22/21 [History Last Taken Unknown] dicyclomine 20 mg tablet 20 mg PO Q6H tablet 02/22/21 [History Last Taken Unknown] dulaglutide 0.75 mg/0.5 mL subcutaneous pen injector 0.75 mg SC QWEEK 02/22/21 [History Last Taken Unknown] polyethylene glycol 3350 17 gram oral powder packet 17 gm PO DAILY 02/22/21 [History Last Taken Unknown] metformin 1,000 mg tablet 1,000 mg PO BID 03/09/21 [History Last Taken Unknown] anastrozole 1 mg PO DAILY 90 Days #90 tab 06/06/21 [Rx Last Taken Unknown] Breast prosthesis (left) #1 ea 06/14/21 [Rx Last Taken Unknown] Breast prosthesis (right) #1 ea 06/14/21 [Rx Last Taken Unknown] mastectomy bra #12 ea 06/14/21 [Rx Last Taken Unknown] clopidogrel 75 mg tablet 75 mg PO DAILY #30 tab 06/22/21 [Rx Last Taken Unknown] atorvastatin 10 mg tablet 10 mg PO QHS #90 tab 06/23/21 [Rx Last Taken Unknown] metoprolol tartrate 25 mg tablet 25 mg PO BID #180 tab 07/22/21 [Rx Last Taken Unknown] nitroglycerin 0.4 mg sublingual tablet 0.4 mg SL Q5M PRN #25 tab 07/22/21 [Rx Last Taken Unknown] ramipril 2.5 mg capsule 2.5 mg PO DAILY #90 cap 08/16/21 [Rx Last Taken Unknown] hydrochlorothiazide 25 mg tablet 25 mg PO DAILY #90 tab 08/17/21 [Rx Last Taken Unknown] Allergy/AdvReac Type Severity Reaction Status Date / Time iodine Allergy Severe Rash Verified 09/05/21 01:51 povidone-iodine AdvReac Severe Itching Verified 09/05/21 01:51 [From Betadine] pravastatin sodium AdvReac Severe LEG CRAMPS Verified 09/05/21 01:51 [From Pravachol] rosuvastatin calcium AdvReac Severe LEG CRAMPS Verified 09/05/21 01:51 [From Crestor] simvastatin AdvReac Severe LEG CRAMPS Verified 09/05/21 01:51 soap [From Betadine] AdvReac Severe Itching Verified 09/05/21 01:51 Family History Sister Pancreatic cancer Diabetes Heart disease Leukemia Breast cancer Hypertension Brother Diabetes Bone cancer Heart disease Hypertension CVA (cerebral vascular accident) Father No problems noted. Surgical History History of bilateral mastectomy History of carpal tunnel surgery History of cholecystectomy History of colonoscopy History of coronary artery bypass graft x 3 (~02/09/21) History of knee joint replacement History of right breast biopsy Postsurgical percutaneous transluminal coronary angioplasty (PTCA) status Presence of coronary angioplasty implant and graft (~03/12/12) S/P coronary artery bypass graft x 3 (~02/09/21) Social History Smoking Status: Never smoker alcohol intake: never substance use type: does not use caffeine: Yes Type: tea Number of servings: 1 ROS ROS Narrative Constitutional: Denies fever, chills, fatigue, anorexia and change in weight Eyes: Denies blurry vision, change in eye color, change in vision, discharge from eye(s), double vision, erythema, eye pain, loss of vision or other HEENT: Denies abnormal hearing, dysphagia, ear pain, epistaxis, headache(s), hearing loss, nasal congestion, nasal discharge, post nasal drip, sinus pressure, sore throat or other Cardiovascular: Reports chest pain. Denies palpitations. Respiratory/Chest: Reports SOB. Denies cough, excessive phlegm production. Gastrointestinal: Denies abdominal pain, coffee ground emesis, constipation, diarrhea, dyspepsia, hematemesis, hematochezia, loose stools, melena, nausea, vomiting or other Genitourinary: Denies burning urination, difficulty urinating, dysuria, hematuria, nocturia, urinary frequency, urinary hesitancy, urinary incontinence, urinary urgency or other Musculoskeletal: Denies arthralgias, back pain, joint pain, joint stiffness, joint swelling, myalgias, neck pain or other Neurologic: Denies abnormal gait, abnormal speech, confusion, disequilibrium, dizziness, focal weakness, headache(s), numbness, paresthesias, seizure-like activity, seizures, syncope, tingling, tremor(s) or other Psychiatric: Denies anxiety, depression, homicidal ideation, suicidal ideation or other Endocrinology: Denies change in body appearance, cold intolerance, excessive sweating, heat intolerance, polydipsia, polyuria or other Hematologic/Lymphatic: Denies anemia, easy bleeding, easy bruising, lymphadenopathy or other Integumentary: Denies rashes Allergic/Immunologic: Denies rhinitis, hives, eczema, asthma or other Vital Signs Vital Signs Vital Signs: 09/05/21 01:51 09/05/21 01:57 09/05/21 02:08 Temperature 96.9 F L Temperature Source Temporal Pulse Rate 66 Respiratory Rate 16 Respiratory Effort Normal Respiratory Pattern Normal Blood Pressure 133/69 H Blood Pressure Mean 90 Pulse Ox 97 Oxygen Delivery Method Room Air Room Air 09/05/21 02:12 09/05/21 02:41 Temperature Temperature Source Pulse Rate 69 Respiratory Rate Respiratory Effort Respiratory Pattern Blood Pressure 124/65 H 112/57 L Blood Pressure Mean 75 Pulse Ox Oxygen Delivery Method Weight Weight: 85.1 kg Body Mass Index (BMI) 31.2 Physical Exam Narrative Physical exam: General: Well-nourished, well-developed. Head: Normocephalic, atraumatic, no tenderness Eyes: PERRLA, EOMI ENT, no trauma, moist mucous membranes, no rhinorrhea Neck: Nontender, full range of motion, no spinal tenderness, deformities, step- off CVS: Regular rate and rhythm. S1-S2 present. No murmur, gallop or rub. Respiratory : clear to auscultation bilaterally, chest wall nontender, no wheezing Abdomen: Soft, nontender, nondistended, normal bowel sounds, no masses : Deferred Back: Nontender, no CVA tenderness, no midline spinal tenderness, deformities, step-offs Extremities: Nontender full range of motion, no trauma Skin: Normal color, no trauma, abrasions Neuro: Alert, oriented, cranial nerves II through XII grossly intact. Psychiatry: Normal mood. Normal affect. Not depressed. Not anxious. Results Lab / Micro Data Result Diagrams: 09/05/21 01:56 09/05/21 01:56 Labs: Laboratory Results - last 24 hr 09/05/21 01:56: WBC 8.7, RBC 4.57, Hgb 13.0, Hct 40.7, MCV 89.1, MCH 28.4, MCHC 31.9 L, RDW Std Deviation 44.9 H, RDW Coeff of [place] 13.8, Plt Count 376, MPV 9.9, Immature Gran % (Auto) 0.300, Neut % (Auto) 52.4, Lymph % (Auto) 33.5, [place] % (Auto) 10.0, Eos % (Auto) 3.1, Baso % (Auto) 0.7, Absolute Neuts (auto) 4.5, Absolute Lymphs (auto) 2.90, Nucleated RBC % 0 09/05/21 01:56: Sodium 142, Potassium 3.9, Chloride 106, Carbon Dioxide 31.0, Anion Gap 5, BUN 11, Creatinine 0.75, Estim Creat Clear Calc 44.41, Est GFR (MDRD) Af Amer 97, Est GFR (MDRD) Non-Af 80, BUN/Creatinine Ratio 14.6, Glucose 111 H, Calcium 9.5, Troponin I High Sens 10 Radiology Impression Chest X-Ray 09/05/21 02:15 IMPRESSION: No acute findings in the chest. at 0239 Reported and signed by: Rito Kwon MD Electronically Signed: Rito Kwon MD at 2:38 EDT Tel , Service support , Assessment & Plan Assessment/Plan (1) Chest pain: QUALIFIERS: Chest pain type: unspecified Qualified Code(s): R07.9 - Chest pain, unspecified PLAN: Chest pain Place on a monitored bed at the PCU Actual CXR image was independently visualized. No acute cardiopulmonary process was noted. I agree with alleges interpretation Actual EKG tracing was independently visualized. EKG tracing showed T waves in V1 and V2 and poor R wave progression. EKG was not different from that of June 2021. Patient is on daily baby aspirin and Plavix; continued. Discussed with emergency department doctor to give 162mg ASA SL NTG 0.4 mg prn as needed for chest pain ordered Morphine as needed for pain ordered We will check lipid panel. Statin: Continue home statin. Of note patient has adverse reactions to statins. Serial cardiac enzymes ordered Stat EKG as needed for chest pain Patient with high heart score and had a CABG in January 2021. Cardiology consult. Diabetes mellitus Patient with hyperglycemia on presentation Patient on home Trulicity that he takes every Sunday. Hold Trulicity in hospital. Hold Metformin. Accu-Chek with correction scale insulin ordered. Hypertension Blood pressure is stable Metoprolol and hydrochlorothiazide continued. Trend blood pressure and adjust blood pressure medications. DVT prophylaxis: SCD ordered. Charges/Coding Visit Charges OBSV E&M: 43432 Initial observation care L3
[2021-09-05] MEDS: Aspirin 81 MG TAB.CHEW 162 MG PO (04:24)
--- NOTE | 2021-09-05 05:46 | EKG12_ITS ---
Test Reason : CP Blood Pressure : / mmHG Vent. Rate : 061 BPM Atrial Rate : 061 BPM P-R Int : 142 ms QRS Dur : 098 ms QT Int : 426 ms P-R-T Axes : 053 042 031 degrees QTc Int : 428 ms Normal sinus rhythm Septal infarct , age undetermined Abnormal ECG When compared with ECG of 05-SEP-2021 02:12, MANUAL COMPARISON REQUIRED, DATA IS UNCONFIRMED Confirmed by SUDHIR CHERY, IAN ([id number]), make up editor JESSICA HOFFMAN ([id number]) on 09/06/2021 9:47:57 AM Referred By: GABBIE Confirmed By:IAN PEGUERO MD
--- NOTE | 2021-09-05 05:46 | PCS.PANDOC ---
PANDEMIC DOCUMENTATION INITIATED: Date: 07/11/2021 Time: 190
[2021-09-05 06:51] LABS: Anion Gap 5 (5-15); BUN 11 mg/dL (7-18); BUN/Creat Ratio 15.3 RATIO (10-20); Calcium,Total 9.2 mg/dL (8.5-10.1); Chloride 106 mmol/L (98-107); Cholesterol 139 mg/dL (200); Creatinine, Serum 0.72 mg/dL (0.55-1.02); EST Glomerular Filtration Rate 84 mL/min (>60); Est Glom Filt Rate - Afr Amer 102 mL/min (>60); Estimated Creatinine Clearance 44.41 ml/min; Glucose 121 mg/dL (74-106); High Density Lipoprotein 50 mg/dL; Potassium 3.7 mmol/L (3.5-5.1); Sodium Level 141 mmol/L (136-145); Triglycerides 178 mg/dL; Troponin-I HS 10 pg/mL (3.0-54.0); Very Low Density Lipoprotein 36 mg/dL (5-40)
[2021-09-05 07:01] LABS: Bedside Glucose 115 mg/dL (70-110)
--- NOTE | 2021-09-05 07:10 | CON.PCM.CA_ITS ---
Assessment & Plan Assessment/Plan (1) Chest pain: QUALIFIERS: Chest pain type: unspecified Qualified Code(s): R07.9 - Chest pain, unspecified PLAN: She presents with chest discomfort with some features suggestive of angina. She appears to be have been appropriately revascularized. Her cardiac enzymes are completely normal as well as her electrocardiogram demonstrating no acute changes. Based on the above I would suggest that we obtain a pharmacologic myocardial perfusion stress test and depending on the findings further recommendations made. We may need to optimize her medical therapy and added nitrates, or ranolazine or increase her beta-leonard. (2) S/P coronary artery bypass graft x 3: PLAN: She is status post recent coronary artery bypass surgery within the last 6 months. I do not think that this represents early graft failure. Will obtain an echocardiogram to make sure that there is no new ventricular wall motion abnormality. Her previous ejection fraction was noted to be 60%. If there is evidence of wall motion abnormality then we may need to investigate th is further. (3) Essential hypertension: PLAN: Her blood pressure appears to be under good control on the current medical therapy and I would not recommend we make any changes. (4) HLD (hyperlipidemia): QUALIFIERS: Hyperlipidemia type: unspecified Qualified Code(s): E78.5 - Hyperlipidemia, unspecified PLAN: She does have a history of hyperlipidemia with adequate control. She will remain on the current medical therapy. Thank you for allowing me to participate in the care of your patient. Please don't hesitate to call if any issues arise. HPI Consult Data Date of Consult: 09/05/21 HPI Narrative HPI Narrative: GABBY TOWNSEND, is a 75 F who presents to the emergency room with complaints of chest discomfort. She describes this as a heaviness across her chest. She has a known history of coronary artery disease status post cardiac catheterization earlier this year which demonstrated an ostial 90% LAD lesion, distal LAD with luminal irregularities, a first diagonal vessel with 85% stenosis, and ostial circumflex artery with 85% stenosis with the previously placed stent which was hazy. She was referred for coronary artery bypass surgery. She underwent coronary artery bypass surgery on February 09 with a left internal mammary artery to the left anterior descending artery, saphenous vein graft to obtuse marginal branch, and saphenous vein graft to the diagonal ve ssel. She had presented to the office in June of this year with an episode of chest discomfort woke her up in the middle of the night and having to use sublingual nitroglycerin. She was not able to complete her cardiac rehabilitation. She has not had any worsening shortness of breath no dizziness or diaphoresis near syncope or syncope she has been compliant with all her medications. She did take a sublingual nitroglycerin at home after this episode occurred with resolution. She subsequently had another episode of chest discomfort and so decided to present to the emergency room as had been instructed by her office visit. She is currently pain-free. [facility] Medical History Atherosclerotic heart disease of [place] coronary artery without angina pectoris Bilateral malignant neoplasm of breast in female Breast cancer Chemotherapy induced diarrhea Chemotherapy management, encounter for Diabetes mellitus type 2 in obese Essential hypertension Fracture of hip, right, closed Genetic counseling Heel spur History of DVT (deep vein thrombosis) History of left heart catheterization (LHC) (~02/02/21) HLD (hyperlipidemia) Mass of left breast Nonrheumatic mitral valve regurgitation Nonrheumatic tricuspid (valve) insufficiency ZITA on CPAP Osteoarthritis PORT PLACEMENT Presence of stent in coronary artery (~03/12/12) Pulmonary hypertension Home Medications potassium chloride 20 meq PO BIDCM tab 07/29/19 [Rx Last Taken Unknown] aspirin 81 mg chewable tablet 81 mg PO DAILY tab 05/24/20 [History Last Taken 02/02/21] ergocalciferol (vitamin D2) 1,250 mcg (50,000 unit) capsule 50,000 unit PO 2XW cap 05/24/20 [History Last Taken Unknown] calcium citrate 315 mg calcium-vitamin D3 6.25 mcg (250 unit) tablet 1 tablet PO BID 02/22/21 [History Last Taken Unknown] dicyclomine 20 mg tablet 20 mg PO Q6H PRN PRN tablet 02/22/21 [History Last Taken Unknown] dulaglutide 0.75 mg/0.5 mL subcutaneous pen injector 0.75 mg SC QWEEK 02/22/21 [History Last Taken Unknown] polyethylene glycol 3350 17 gram oral powder packet 17 gm PO DAILY 02/22/21 [History Last Taken Unknown] metformin 1,000 mg tablet 1,000 mg PO BID 03/09/21 [History Last Taken Unknown] anastrozole 1 mg PO DAILY 90 Days #90 tab 06/06/21 [Rx Last Taken Unknown] Breast prosthesis (left) #1 ea 06/14/21 [Rx Last Taken Unknown] Breast prosthesis (right) #1 ea 06/14/21 [Rx Last Taken Unknown] mastectomy bra #12 ea 06/14/21 [Rx Last Taken Unknown] clopidogrel 75 mg tablet 75 mg PO DAILY #30 tab 06/22/21 [Rx Last Taken Unknown] metoprolol tartrate 25 mg tablet 25 mg PO BID #180 tab 07/22/21 [Rx Last Taken Unknown] nitroglycerin 0.4 mg sublingual tablet 0.4 mg SL Q5M PRN #25 tab 07/22/21 [Rx Last Taken Unknown] ramipril 2.5 mg capsule 2.5 mg PO DAILY #90 cap 08/16/21 [Rx Last Taken Unknown] hydrochlorothiazide 25 mg tablet 25 mg PO DAILY #90 tab 08/17/21 [Rx Last Taken Unknown] Lipitor 20 mg PO/SL QHS 09/05/21 [History Last Taken Unknown] Allergy/AdvReac Type Severity Reaction Status Date / Time iodine Allergy Severe Rash Verified 09/05/21 05:58 povidone-iodine AdvReac Severe Itching Verified 09/05/21 05:58 [From Betadine] pravastatin sodium AdvReac Severe LEG CRAMPS Verified 09/05/21 05:58 [From Pravachol] rosuvastatin calcium AdvReac Severe LEG CRAMPS Verified 09/05/21 05:58 [From Crestor] simvastatin AdvReac Severe LEG CRAMPS Verified 09/05/21 05:58 soap [From Betadine] AdvReac Severe Itching Verified 09/05/21 05:58 Family History Sister Pancreatic cancer Diabetes Heart disease Leukemia Breast cancer Hypertension Brother Diabetes Bone cancer Heart disease Hypertension CVA (cerebral vascular accident) Father No problems noted. Surgical History History of bilateral mastectomy History of carpal tunnel surgery History of cholecystectomy History of colonoscopy History of coronary artery bypass graft x 3 (~02/09/21) History of knee joint replacement History of right breast biopsy Postsurgical percutaneous transluminal coronary angioplasty (PTCA) status Presence of coronary angioplasty implant and graft (~03/12/12) S/P coronary artery bypass graft x 3 (~02/09/21) Social History Smoking Status: Never smoker alcohol intake: never substance use type: does not use caffeine: Yes Type: tea Number of servings: 1 ROS Constitutional Constitutional: Denies fever(s) or weight loss Eyes Eyes: Reports systems reviewed and no addt'l complaints, except as documented ENT HEENT: Reports systems reviewed and no addt'l complaints, except as documented Cardiovascular Cardiovascular: Reports chest pain at rest and chest pain with activity; Denies dyspnea at rest, dyspnea on exertion, edema, palpitations or paroxysmal nocturnal dyspnea Respiratory/Chest Respiratory/Chest: Denies dyspnea on exertion, productive cough, shortness of b reath at rest or shortness of breath with exertion Gastrointestinal Gastrointestinal: Denies change in bowel habits, nausea, vomiting or weight changes Genitourinary Genitourinary: Denies difficulty urinating Musculoskeletal Musculoskeletal: Denies joint stiffness or muscle weakness Integumentary Integumentary: Denies lesions Neurologic Neurologic: Denies dizziness or syncope Psychiatric Psychiatric: Denies anxiety Endocrine Endocrinology: Denies excessive sweating or fatigue Hematologic/Lymphatic Hematologic/Lymphatic: Denies anemia Allergic/Immunologic Allergic/Immunologic: Denies seasonal rhinorrhea Physical Exam Const alert, oriented x3 and no apparent distress General Appearance: cooperative HEENT hearing grossly normal bilaterally Head and Scalp: atraumatic Eyes EOMs intact bilaterally Neck General: normal visual inspection Chest inspection of chest normal and palpation of chest normal Resp normal respiratory effort Auscultation: clear to auscultation bilaterally Cardio regular rate, regular rhythm, S1 normal heart sound and S2 normal heart sound Jugular Venous Distention: JVD GI normal to inspection, nondistended, normoactive bowel sounds Extremity normal capillary refill and no pedal edema Peripheral Pulses: Yes pulses 2+ throughout and femoral pulses present Skin no rashes or lesions noted Neuro oriented x3 and CN's II-XII intact bilaterally Psych Appearance: grossly normal and appropriate Objective Data Vital Signs: Vital Signs Temp Pulse Resp BP Pulse Ox 98.0 F 63 18 142/70 H 96 09/05/21 05:50 09/05/21 06:23 09/05/21 05:50 09/05/21 05:50 09/05/21 05:50 Oxygen Delivery Method Room Air Weight: 219 lb 2.232 oz Body Mass Index (BMI) 36.4 Intake & Output: Intake and Output for Last 24 Hours 09/03/21 09/04/21 09/05/21 23:59 23:59 23:59 Intake Total 0 / 0 Balance 0 / 0 Lab / Micro Data Result Diagrams: 09/05/21 01:56 09/05/21 06:12 Labs: Laboratory Results - last 24 hr 09/05/21 01:56: WBC 8.7, RBC 4.57, Hgb 13.0, Hct 40.7, MCV 89.1, MCH 28.4, MCHC 31.9 L, RDW Std Deviation 44.9 H, RDW Coeff of Ruel 13.8, Plt Count 376, MPV 9.9, Immature Gran % (Auto) 0.300, Neut % (Auto) 52.4, Lymph % (Auto) 33.5, Grainger % (Auto) 10.0, Eos % (Auto) 3.1, Baso % (Auto) 0.7, Absolute Neuts (auto) 4.5, A bsolute Lymphs (auto) 2.90, Nucleated RBC % 0 09/05/21 01:56: Sodium 142, Potassium 3.9, Chloride 106, Carbon Dioxide 31.0, Anion Gap 5, BUN 11, Creatinine 0.75, Estim Creat Clear Calc 44.41, Est GFR (MDRD) Af Amer 97, Est GFR (MDRD) Non-Af 80, BUN/Creatinine Ratio 14.6, Glucose 111 H, Calcium 9.5, Troponin I High Sens 10 09/05/21 06:12: Sodium 141, Potassium 3.7, Chloride 106, Carbon Dioxide 30.0, Anion Gap 5, BUN 11, Creatinine 0.72, Estim Creat Clear Calc 44.41, Est GFR (MDRD) Af Amer 102, Est GFR (MDRD) Non-Af 84, BUN/Creatinine Ratio 15.3, Glucose 121 H, Calcium 9.2, Troponin I High Sens 10, Triglycerides 178, Cholesterol 139, LDL Cholesterol 53, VLDL Cholesterol 36, HDL Cholesterol 50 09/05/21 06:17: POC Glucose 115 H Cardiology Labs/Tests 09/05/21 01:56: WBC 8.7, RBC 4.57, Hgb 13.0, Hct 40.7, MCV 89.1, MCH 28.4, MCHC 31.9 L, Plt Count 376, MPV 9.9, Immature Gran % (Auto) 0.300, Neut % (Auto) 52.4, Lymph % (Auto) 33.5, Grainger % (Auto) 10.0, Eos % (Auto) 3.1, Baso % (Auto) 0.7, Absolute Neuts (auto) 4.5, Nucleated RBC % 0 09/05/21 01:56: Sodium 142, Potassium 3.9, Chloride 106, Carbon Dioxide 31.0, Anion Gap 5, BUN 11, Creatinine 0.75, Est GFR (MDRD) Af Amer 97, Est GFR (MDRD) Non-Af 80, BUN/Creatinine Ratio 14.6, Glucose 111 H, Calcium 9.5 09/05/21 06:12: Sodium 141, Potassium 3.7, Chloride 106, Carbon Dioxide 30.0, Anion Gap 5, BUN 11, Creatinine 0.72, Est GFR (MDRD) Af Amer 102, Est GFR (MDRD) Non-Af 84, BUN/Creatinine Ratio 15.3, Glucose 121 H, Calcium 9.2, Triglycerides 178, Cholesterol 139, LDL Cholesterol 53, VLDL Cholesterol 36, HDL Cholesterol 50 Rhythm: EKG: Normal sinus rhythm with no acute changes ECHO: Stress Test: Cardiac Cath: PCI: CT Surgery: Holter monitor: EPS: PPM: CXR: Chest CT Scan: Radiography Diagnostic Testing: Radiology Impression Chest X-Ray 09/05/21 02:15 IMPRESSION: No acute findings in the chest. at 0239 Reported and signed by: Rito Kwon MD Electronically Signed: Rito Kwon MD at 2:38 EDT Tel , Service support ,
--- NOTE | 2021-09-05 07:17 | ECHOD_ITS ---
Reason For Study: s/p CABG Procedure This was a 2D Doppler, Color Flow transthoracic echocardiogram. Myocardial strain analysis was performed in this exam to aid in the assessment of cardiac function. Exam performed portable in patient room. Left Ventricle Normal LV size. Left ventricular systolic function is normal. The estimated ejection fraction is 60 %. No regional wall motion abnormalities noted. Right Ventricle Normal RV size. Normal systolic function. Atria Normal left atrium. Normal right atrium. Tricuspid Valve Normal tricuspid valve. Mild (1+) tricuspid valve insufficiency. Pulmonary artery systolic pressure is 37 mmHg. Aortic Valve Trisinus/trileaflet aortic valve. Trivial aortic valve insufficiency. Pulmonic Valve Normal pulmonic valve. Great Vessels Normal aortic root. The pulmonary artery is normal size. Normal inferior vena cava. Pericardium/Pleural No pericardial effusion. MMode/2D Measurements & Calculations LVIDd: 4.2 cm IVSd: 1.3 cm Ao root diam: 3.1 cm LVIDs: 2.1 cm LVPWd: 1.0 cm LA dimension: 4.4 cm FS: 50.4 % LAV(MOD-bp): 57.3 ml LA A4 area: 19.6 cm2 LA dimension(2D): 4.2 cm LAV(MOD-bp) Indexed: 27.9 ml/m2 LAV(MOD-sp2): 54.8 ml LAV(MOD-sp4): 55.8 ml RA A4 area: 13.3 cm2 Time Measurements MV dec time: 0.27 sec Doppler Measurements & Calculations MV E max lc: 103.5 cm/sec Lat Peak E' Lc: 9.3 cm/sec Med Peak E' Lc: 3.9 cm/sec MV A max lc: 94.4 cm/sec E/E' lat: 11.1 E/E' med: 26.3 MV E/A: 1.1 Ao V2 max: 151.0 cm/sec LV V1 max: 109.0 cm/sec PI dec slope: 227.8 cm/sec2 Ao max P.1 mmHg LV V1 max P.8 mmHg TR max lc: 289.9 cm/sec TR max P.6 mmHg ECHO/Echo Complete Interpretation Summary Normal LV size. Left ventricular systolic function is normal. The estimated ejection fraction is 60 %. The global longitudinal strain is normal. The global longitudinal strain = -19. 1 % (normal). Ordering Physician: Markel Guardado Referring Physician: Jb Cast Performed By: Angela Hdez RDCS, RVT
[2021-09-05 09:03] LABS: Troponin-I HS 10 pg/mL (3.0-54.0)
[2021-09-05] MEDS: 0.9% Saline Lock 10 ML Syringe IV (09:24)
--- NOTE | 2021-09-05 11:41 | STRESSREP ---
Stress Test Report Pharmacologic myocardial perfusion stress test. 75-year-old lady with a history of coronary bypass surgery. Stress protocol: Resting EKG demonstrates normal sinus rhythm with a rate of 63 bpm normal intervals are noted resting blood pressure is 142/62 mmHg. 0.4 mg of regadenoson was infused per usual protocol followed by rapid intravenous saline flush injection continuous EKG monitoring was performed. The maximum heart rate attained was 95 bpm which was 65% of maximum. Heart rate the maximum workload was 1 metabolic equivalent. At rest there were no ST or T wave changes noted to suggest abnormal flow reserve and at peak infusion nonspecific ST changes were noted. No clinical angina was noted. Myocardial perfusion protocol. 14.1 mCi of technetium 99m sestamibi was injected at rest. 0.4 mg of regadenoson was infused per usual protocol. At peak infusion 44.5 mCi of technetium 99m sestamibi was injected stress images were obtained stress and rest images were reconstructed in comparing the short axis vertical long horizontal long axis. Gated images were also obtained per Perfusion SPECT analysis: Review of the stress images demonstrate normal uptake of tracer noted in all areas of the myocardium. The resting images similarly demonstrate normal uptake of tracer noted in all areas of the myocardium. No areas of reversibility are noted to suggest ischemia and no previous infarct is noted. Gated SPECT analysis: The gated ejection fraction is noted to be 67%. Conclusion: Normal pharmacologic myocardial perfusion stress test. Preserved ejection fraction.
[2021-09-05 12:11] LABS: Bedside Glucose 146 mg/dL (70-110)
--- NOTE | 2021-09-05 12:54 | PCM.DC ---
Discharge Instructions Diet Discharge Diet: Low fat / Low cholesterol and 2000 mg Sodium Diet Activity Discharge Activity: Return to Normal Activity Follow Up Care Test Results: Test results from this visit will be discussed in further detail at your follow-up appointment, if applicable. Discharge Plan Admission Admit Date/Time: 09/05/21 03:42 Primary Reason for Your Visit: Acute chest pain Attending Provider: Jaclyn Grace Primary Care Provider: Jb Cast Consulting Providers: Alma Hartman Instructions Additional Instructions / Restrictions: Take note of changes to your medications. Continue to take your medications as ordered. Follow-up with cardiology within 2 weeks Discharge Orders/Prescriptions Prescriptions: New isosorbide mononitrate 30 mg Tablet Extended Release 24 Hr 30 mg PO DAILY 30 Days Qty: 30 RF: 0 metoprolol tartrate 50 mg Tablet 50 mg PO BID 30 Days Qty: 60 RF: 0 Continued aspirin 81 mg tablet,chewable 81 mg PO DAILY RF: 0 nitroglycerin 0.4 mg tablet, sublingual 0.4 mg SL Q5M PRN (Reason: Cardiac/Chest Pain) Qty: 25 RF: 3 metformin 1,000 mg tablet 1,000 mg PO BID RF: 0 ergocalciferol (vitamin D2) 1,250 mcg (50,000 unit) capsule 50,000 unit PO 2XW RF: 0 anastrozole 1 MG tablet 1 mg PO DAILY 90 Days Qty: 90 RF: 3 potassium chloride 10 MEQ tablet 20 meq PO BIDCM RF: 0 Lipitor 20 mg PO/SL QHS RF: 0 polyethylene glycol 3350 [Miralax] 17 gram powder in packet 17 gm PO DAILY RF: 0 Trulicity 0.75 mg/0.5 mL pen injector 0.75 mg SC QWEEK RF: 0 calcium citrate-vitamin D3 315 mg-6.25 mcg (250 unit) tablet 1 tablet PO BID RF: 0 dicyclomine 20 mg tablet 20 mg PO Q6H PRN PRN (Reason: Diarrhea) RF: 0 (DME) mastectomy bra See Rx Instructions .Route .MEDSUPPLY Qty: 12 RF: 0 (DME) Breast prosthesis (left) See Rx Instructions .Route .MEDSUPPLY Qty: 1 RF: 0 (DME) Breast prosthesis (right) See Rx Instructions .Route .MEDSUPPLY Qty: 1 RF: 0 clopidogrel 75 mg tablet 75 mg PO DAILY Qty: 30 RF: 3 ramipril 2.5 mg capsule 2.5 mg PO DAILY Qty: 90 RF: 4 hydrochlorothiazide 25 mg tablet 25 mg PO DAILY Qty: 90 RF: 4 Discontinued metoprolol tartrate 25 mg tablet 25 mg PO BID Qty: 180 RF: 3 Referrals / Follow Up: bJ Cast MD [Primary Care Provider] - Within 2 Weeks Jb Segovia MD [STAFF PHYSICIAN] - Within 2 Weeks Disposition Disposition (needs filled in before D/C Order can be placed): Home, Self Care
--- NOTE | 2021-09-05 13:07 | PCM.DC.SUM ---
Providers Date of Admission: 09/05/21 Date of Discharge: 09/05/21 Primary Care Physician: Dr. Jb Cast MD Consultations 09/05/21 05:46 Consult: Cardiology Routine Consulting Provider: Alma Hartman Reason for Consult: Chest Pain with high risk features EMERGENT Consult: No MD Notified: Yes Date Notified: 09/05/21 Time Notified: 06:40 Method of Notification: Text Reason For Visit: CHEST TOMA N Diagnosis Discharge Diagnosis (1) Chest pain: Status: Resolved Code(s): R07.9 - Chest pain, unspecified Qualifiers: Chest pain type: unspecified Qualified Code(s): R07.9 - Chest pain, unspecified (2) S/P coronary artery bypass graft x 3: Status: Chronic Code(s): Z95.1 - Presence of aortocoronary bypass graft (3) Essential hypertension: Status: Chronic Code(s): I10 - Essential (primary) hypertension (4) HLD (hyperlipidemia): Status: Chronic Code(s): E78.5 - Hyperlipidemia, unspecified Qualifiers: Hyperlipidemia type: unspecified Qualified Code(s): E78.5 - Hyperlipidemia, unspecified Medications at Discharge Home Medications potassium chloride 20 meq PO BIDCM tab 07/29/19 aspirin 81 mg chewable tablet 81 mg PO DAILY tab 05/24/20 ergocalciferol (vitamin D2) 1,250 mcg (50,000 unit) capsule 50,000 unit PO 2XW cap 05/24/20 calcium citrate 315 mg calcium-vitamin D3 6.25 mcg (250 unit) tablet 1 tablet PO BID 02/22/21 dicyclomine 20 mg tablet 20 mg PO Q6H PRN PRN tablet 02/22/21 dulaglutide 0.75 mg/0.5 mL subcutaneous pen injector 0.75 mg SC QWEEK 02/22/21 polyethylene glycol 3350 17 gram oral powder packet 17 gm PO DAILY 02/22/21 metformin 1,000 mg tablet 1,000 mg PO BID 03/09/21 anastrozole 1 mg PO DAILY 90 Days #90 tab 06/06/21 Breast prosthesis (left) #1 ea 06/14/21 Breast prosthesis (right) #1 ea 06/14/21 mastectomy bra #12 ea 06/14/21 clopidogrel 75 mg tablet 75 mg PO DAILY #30 tab 06/22/21 nitroglycerin 0.4 mg sublingual tablet 0.4 mg SL Q5M PRN #25 tab 07/22/21 ramipril 2.5 mg capsule 2.5 mg PO DAILY #90 cap 08/16/21 hydrochlorothiazide 25 mg tablet 25 mg PO DAILY #90 tab 08/17/21 Lipitor 20 mg PO/SL QHS 09/05/21 isosorbide mononitrate 30 mg PO DAILY 30 Days #30 tab 09/05/21 metoprolol tartrate 50 mg PO BID 30 Days #60 tab 09/05/21 Hospital Course Operations None Procedures Stress test Summary of Care Provided Minutes Spent on Discharge: 35 Hospital Course: 75 y/o female with past medical history of CAD status post CABG, stents, recently had a CABG done in January 2021, who comes in complains of substernal chest pain that radiates to the left and under her breast. Patient's admitting EKG showed no acute ST-T changes. Her chest pain improved with nitro. She was admitted to the telemetry floor and cardiology was consulted. She also underwent nuclear stress test that was unremarkable. There was no acute events during her hospital stay. Changes were made to her medications by cardiology; notably. Metoprolol was increased to 50 mg p.o. twice daily and she was started on nitrates. Patient will follow up with cardiology in the outpatient. Physical Exam Narrative Physical exam: General: Alert, Oriented x3, Cooperative, No apparent distress, Well developed HEENT: Atraumatic Oral: Moist Mucosa Neck: Supple Lungs: Clear to auscultation Cardiovascular: HS I+II, regular, no murmurs Abdomen: Bowel Sounds Present, Soft, Non Tender Extremities: No edema Weight / BMI Weight Weight: 99.4 kg Body Mass Index (BMI) 36.4 ABG / Lab / Microbiology Data Result Diagrams: 09/05/21 01:56 09/05/21 06:12 Laboratory: Laboratory Results - last 24 hr 09/05/21 01:56: WBC 8.7, RBC 4.57, Hgb 13.0, Hct 40.7, MCV 89.1, MCH 28.4, MCHC 31.9 L, RDW Std Deviation 44.9 H, RDW Coeff of Ruel 13.8, Plt Count 376, MPV 9.9, Immature Gran % (Auto) 0.300, Neut % (Auto) 52.4, Lymph % (Auto) 33.5, [place] % (Auto) 10.0, Eos % (Auto) 3.1, Baso % (Auto) 0.7, Absolute Neuts (auto) 4.5, Absolute Lymphs (auto) 2.90, Nucleated RBC % 0 09/05/21 01:56: Sodium 142, Potassium 3.9, Chloride 106, Carbon Dioxide 31.0, Anion Gap 5, BUN 11, Creatinine 0.75, Estim Creat Clear Calc 44.41, Est GFR (MDRD) Af Amer 97, Est GFR (MDRD) Non-Af 80, BUN/Creatinine Ratio 14.6, Glucose 111 H, Calcium 9.5, Troponin I High Sens 10 09/05/21 06:12: Sodium 141, Potassium 3.7, Chloride 106, Carbon Dioxide 30.0, Anion Gap 5, BUN 11, Creatinine 0.72, Estim Creat Clear Calc 44.41, Est GFR (MDRD) Af Amer 102, Est GFR (MDRD) Non-Af 84, BUN/Creatinine Ratio 15.3, Glucose 121 H, Calcium 9.2, Troponin I High Sens 10, Triglycerides 178, Cholesterol 139, LDL Cholesterol 53, VLDL Cholesterol 36, HDL Cholesterol 50 09/05/21 06:17: POC Glucose 115 H 09/05/21 08:06: Troponin I High Sens 10 09/05/21 12:00: POC Glucose 146 H Radiography Diagnostic Testing: Radiology Impression Chest X-Ray 09/05/21 02:15 IMPRESSION: No acute findings in the chest. at 0239 Reported and signed by: Rito Kwon MD Electronically Signed: Rito Kwon MD at 2:38 EDT Tel , Service support , D/C Instructions Discharge Diet: Low fat / Low cholesterol and 2000 mg Sodium Diet Meaningful Use Info Meaningful Use Diagnoses (Choose all that apply): None applicable Discharge Plan Admission Admit Date/Time: 09/05/21 03:42 Primary Reason for Your Visit: Acute chest pain Attending Provider: [place],Crawford Primary Care Provider: Jb Cast Consulting Providers: Alma Hartman Instructions Additional Instructions / Restrictions: Take note of changes to your medications. Continue to take your medications as ordered. Follow-up with cardiology within 2 weeks Discharge Orders/Prescriptions Prescriptions: New isosorbide mononitrate 30 mg Tablet Extended Release 24 Hr 30 mg PO DAILY 30 Days Qty: 30 RF: 0 metoprolol tartrate 50 mg Tablet 50 mg PO BID 30 Days Qty: 60 RF: 0 Continued aspirin 81 mg tablet,chewable 81 mg PO DAILY RF: 0 nitroglycerin 0.4 mg tablet, sublingual 0.4 mg SL Q5M PRN (Reason: Cardiac/Chest Pain) Qty: 25 RF: 3 metformin 1,000 mg tablet 1,000 mg PO BID RF: 0 ergocalciferol (vitamin D2) 1,250 mcg (50,000 unit) capsule 50,000 unit PO 2XW RF: 0 anastrozole 1 MG tablet 1 mg PO DAILY 90 Days Qty: 90 RF: 3 potassium chloride 10 MEQ tablet 20 meq PO BIDCM RF: 0 Lipitor 20 mg PO/SL QHS RF: 0 polyethylene glycol 3350 [Miralax] 17 gram powder in packet 17 gm PO DAILY RF: 0 Trulicity 0.75 mg/0.5 mL pen injector 0.75 mg SC QWEEK RF: 0 calcium citrate-vitamin D3 315 mg-6.25 mcg (250 unit) tablet 1 tablet PO BID RF: 0 dicyclomine 20 mg tablet 20 mg PO Q6H PRN PRN (Reason: Diarrhea) RF: 0 (DME) mastectomy bra See Rx Instructions .Route .MEDSUPPLY Qty: 12 RF: 0 (DME) Breast prosthesis (left) See Rx Instructions .Route .MEDSUPPLY Qty: 1 RF: 0 (DME) Breast prosthesis (right) See Rx Instructions .Route .MEDSUPPLY Qty: 1 RF: 0 clopidogrel 75 mg tablet 75 mg PO DAILY Qty: 30 RF: 3 ramipril 2.5 mg capsule 2.5 mg PO DAILY Qty: 90 RF: 4 hydrochlorothiazide 25 mg tablet 25 mg PO DAILY Qty: 90 RF: 4 Discontinued metoprolol tartrate 25 mg tablet 25 mg PO BID Qty: 180 RF: 3 Referrals / Follow Up: Jb Segovia MD [STAFF PHYSICIAN] - Within 2 Weeks Jb Cast MD [Primary Care Provider] - Within 2 Weeks Disposition Disposition (needs filled in before D/C Order can be placed): Home, Self Care Charges/Coding Visit Charges OBSV E&M: 14214 Observation care discharge
--- NOTE | 2021-09-05 14:10 | PHA.DC.MC ---
Pharmacy Service has performed discharge medication reconciliation and counseling for this patient. 1. ISOSORBIDE MONONITRATE 30MG PO DAILY The patient's discharge medication list was reviewed for discrepancies and discrepancies were resolved. Home Medications potassium chloride 20 meq PO BIDCM tab 07/29/19 aspirin 81 mg chewable tablet 81 mg PO DAILY tab 05/24/20 ergocalciferol (vitamin D2) 1,250 mcg (50,000 unit) capsule 50,000 unit PO 2XW cap 05/24/20 calcium citrate 315 mg calcium-vitamin D3 6.25 mcg (250 unit) tablet 1 tablet PO BID 02/22/21 dicyclomine 20 mg tablet 20 mg PO Q6H PRN PRN tablet 02/22/21 dulaglutide 0.75 mg/0.5 mL subcutaneous pen injector 0.75 mg SC QWEEK 02/22/21 polyethylene glycol 3350 17 gram oral powder packet 17 gm PO DAILY 02/22/21 metformin 1,000 mg tablet 1,000 mg PO BID 03/09/21 anastrozole 1 mg PO DAILY 90 Days #90 tab 06/06/21 Breast prosthesis (left) #1 ea 06/14/21 Breast prosthesis (right) #1 ea 06/14/21 mastectomy bra #12 ea 06/14/21 clopidogrel 75 mg tablet 75 mg PO DAILY #30 tab 06/22/21 nitroglycerin 0.4 mg sublingual tablet 0.4 mg SL Q5M PRN #25 tab 07/22/21 ramipril 2.5 mg capsule 2.5 mg PO DAILY #90 cap 08/16/21 hydrochlorothiazide 25 mg tablet 25 mg PO DAILY #90 tab 08/17/21 Lipitor 20 mg PO/SL QHS 09/05/21 isosorbide mononitrate 30 mg PO DAILY 30 Days #30 tab 09/05/21 metoprolol tartrate 50 mg PO BID 30 Days #60 tab 09/05/21 The patient was counseled on the following discharge medications and changes in medications for homegoing were reviewed. The Reason for Use, instructions for use, and potential side effects were reviewed for all new medications. The patient's questions regarding all of their medications were answered. The patient was able to verbally demonstrate an understanding of their discharge medications.
== END 2021-09-05 12:16 | disposition home or self-care (01) ==
LOC: ED 03:54 → PCU 04:52
PROVIDERS: Admitting Provider Hospitalist; Emergency Provider Emergency Medicine; PCP Family Medicine; Visit Provider Internal Medicine
DX: R07.89 Other chest pain (principal); I25.10 Atherosclerotic heart disease of native coronary artery without angina pectoris; E78.5 Hyperlipidemia, unspecified; E66.9 Obesity, unspecified; E11.65 Type 2 diabetes mellitus with hyperglycemia; I10 Essential (primary) hypertension; G47.33 Obstructive sleep apnea (adult) (pediatric); M19.90 Unspecified osteoarthritis, unspecified site; I27.20 Pulmonary hypertension, unspecified; Z79.899 Other long term (current) drug therapy; Z79.84 Long term (current) use of oral hypoglycemic drugs; Z86.718 Personal history of other venous thrombosis and embolism; Z79.82 Long term (current) use of aspirin; Z85.3 Personal history of malignant neoplasm of breast; Z95.1 Presence of aortocoronary bypass graft; Z79.02 Long term (current) use of antithrombotics/antiplatelets
CPT/HCPCS: 36415; 71045; 78452; 80048; 80061; 82962; 84484; 85025; 93005; 93017; 93306; 99218; 99283; A9500; A4216; G0378; J2785

== ENCOUNTER → 2022-04-17 | Outpatient (CLI) | payer MEDICARE, OTHER, SELFPAY ==
[2021-06-10 07:21] VITALS: BMI 36.6
[2022-04-17 10:41] LABS: AST(SGOT) 15 U/L (15-37); Alanine Aminotransfer ALT/SGPT 18 U/L (13-56); Albumin, Serum 3.8 g/dL (3.2-5.0); Alkaline Phosphatase 84 U/L (45-117); Bilirubin, Direct 0.25 mg/dL (0.00-0.30); Cholesterol 156 mg/dL (200); Globulin 3.7 g/dL (2.2-4.2); High Density Lipoprotein 53 mg/dL; Protein, Total 7.5 g/dL (6.4-8.2); Triglycerides 219 mg/dL; Very Low Density Lipoprotein 44 mg/dL (5-40)
== END | disposition home or self-care (01) ==
LOC: MTLAB 07:55
PROVIDERS: PCP Family Medicine; Referring Provider Physician Assistant Medical; Visit Provider Physician Assistant Medical
DX: E78.5 Hyperlipidemia, unspecified (principal); I10 Essential (primary) hypertension; I25.10 Atherosclerotic heart disease of native coronary artery without angina pectoris
CPT/HCPCS: 36415; 80061; 80076

== ENCOUNTER 2022-07-17 07:46 | Day surgery (SDC) | payer MEDICARE, OTHER, SELFPAY ==
[2021-06-10 07:21] VITALS: BMI 36.6
--- NOTE | 2022-07-17 | COLBX_PTH ---
PATIENT: GABBY TOWNSEND LOC: EN U#:[id number] AGE/SX: 76/F ROOM: RE07/17/[address]: Dr. Ivan Mar DO : 1945 BED: DIS: 07/17/2022 SPEC #: [id number] RECD: 07/17/22 12:34 STATUS: LUZ JUDY #: [id number] RENATA: 07/17/22 00:[address]: Ivan Mar DEPT: SURGICAL PATHOLOGY RECD BY: Raul Serrano ENTERED: 07/17/22 12:34 SP TYPE: COLON BX OTHR DR: Dr. Jb Cast MD Tissues: A - Cecum, NOS B - Sigmoid colon biopsy Procedures: Surgery Specimen Level IV HEADER OPERATION: Colonoscopy, snare of polyp (MAC) PRE-OP DIAGNOSIS: Screening, history of colon polyps TISSUE SUBMITTED: A ? Cecum polyp, B ? Sigmoid colon polyp MICROSCOPIC DIAGNOSIS A. Cecal polyp, biopsy: Fragments of tubular adenoma. Fragments of hyperplastic polyp. B. Sigmoid colon polyp, biopsy: Fragments of tubular adenoma. AM:tori 07/18/2022 COMMENT Case has been reviewed in consultation with Dr. Escobar who concurs with the above diagnosis. IDC:JACK MICROSCOPIC DESCRIPTION Slides are reviewed. GROSS DESCRIPTION A - Received in fixative is one container labeled with the patient's name and designated cecum polyp. The specimen consists of multiple irregular fragments of light coreas soft tissue mixed with fecal material that in aggregate measure 1.5 x 0.3 x 0.2 cm. The specimen is totally submitted in one cassette. B - Received in fixative is one container labeled with the patient's name and designated sigmoid colon polyp. The specimen consists of one irregular fragment of light coreas soft tissue that measures 0.3 x 0.3 x 0.2 cm. The specimen is totally submitted in one cassette. / JACK:tori 07/17/2022 TC:5 CPT: 31069 x2
[2022-07-17 08:10] VITALS: BP 120/85; PULSE 64; RESP 16; TEMP 36.8; O2SAT 96; BMI 34.0
[2022-07-17] MEDS: Lactated Ringers 1,000 ML 15 ML IV (08:26)
--- NOTE | 2022-07-17 08:41 | HP.PCM_ITS ---
History and Physical Date of Admission: 07/17/22 GABBY TOWNSEND, is a 76 F who presents to the office today for requests a screening colonoscopy, referred by Oncology. She herself has a hx of bilateral breast cancer, and she reports a strong FH cancers. She has had 2 screening colonoscopies, years ago by Dr Elias at [facility], she had benign polyps. She denies any bowel issues--no diarrhea, constipation, melena, hematochezia. No abdominal pain. She denies any upper GI complaints--no heartburn, reflux, pain, nausea, vomiting, difficulty swallowing. ROS Const Constitutional: No fatigue ENT ENT: No difficulty swallowing Cardio Cardiology: No leg pain with exertion Gastro GI: No abdominal pain, belching, bloating, change in bowel habits, change in stool character, coffee ground emesis, constipation, cramping, diarrhea, heartburn, difficulty swallowing, feeling full early, excessive flatus, incontinent of stools, Vomiting blood/hematemesis, Blood in stool, loose stools, Black,tarry stools, nausea/dyspepsia, pain with swallowing, vomiting or other Musc Musculoskeletal: No joint pain, back pain, stiffness, Arthritis or leg pain with exertion Skin Skin: No yellowing of the eye or itchy eyes Psych Psychiatric: No anxiety and No depression Endo Endocrine: No fatigue Aller/Imm Allergy/Immunologic: No itchy eyes Randy/Lymp Hematologic/Lymphatic: No easy bleeding or easy bruising Exam Const General: healthy appearing, well developed and well groomed Eyes General: appearance normal, both eyes and all related structures Neck Neck: normal visual inspection Resp Effort & Inspection: normal respiratory effort Neuro General: patient alert, patient awake and patient oriented x3 Cognition: normal cognition Speech: speech normal Gait: normal gait Psych Mood: euthymic mood Affect: normal affect Quality Reporting Tobacco Screening ([facility] 138) Smoking Status: Never smoker Assessment and Plan Assessment and Plan (1) Screening for colon cancer: ?Status:?Acute (2) History of colon polyps: ?Status:?Acute (3) Bilateral malignant neoplasm of breast in female: ?Status:?Resolved ?Qualifiers: ?Breast location:?unspecified site of breast??Estrogen receptor status:? unspecified? Qualified Code(s):?C50.911 - Malignant neoplasm of unspecified site of right female breast; C50.912 - Malignant neoplasm of unspecified site of left female breast ?Comment: TP 53 (variant of uncertain significance) ?Plan - Analy [employer], [employer]-C: 76-year-old female who will be scheduled for a screening colonoscopy considering her history of breast cancer and strong family history of other cancers (not colon cancer).? As per usual we will schedule 2 week follow-up after the endoscopy to review biopsy results. I have re-examined the patient. There are no clinical changes since date of franklyn talavera
[2022-07-17 09:40] VITALS: BP 120/85; BP 91/58; PULSE 59; RESP 16; TEMP 37.3; O2SAT 92
--- NOTE | 2022-07-17 09:41 | OP.COLON_ITS ---
Patient Name: Danii Wolfe Procedure Date: 07/17/2022 9:05 AM Date of : 1945 Age: 76 Procedure: Colonoscopy Indications: Screening for colorectal malignant neoplasm Providers: Ivan Mar DO Medicines: Monitored Anesthesia Care Patient Profile: Last Colonoscopy: 5 years ago. Complications: No immediate complications. Procedure: Pre-Anesthesia Assessment: - Prior to the procedure, a History and Physical was performed, and patient medications and allergies were reviewed. The patient is competent. The risks and benefits of the procedure and the sedation options and risks were discussed with the patient. All questions were answered and informed consent was obtained. Patient identification and proposed procedure were verified by the physician in the pre-procedure area. Mental Status Examination: alert and oriented. Airway Examination: normal oropharyngeal airway and neck mobility. Respiratory Examination: clear to auscultation. CV Examination: normal. Prophylactic Antibiotics: The patient does not require prophylactic antibiotics. Prior Anticoagulants: The patient has taken no previous anticoagulant or antiplatelet agents. ASA Grade Assessment: II - A patient with mild systemic disease. After reviewing the risks and benefits, the patient was deemed in satisfactory condition to undergo the procedure. The anesthesia plan was to use moderate sedation / analgesia (conscious sedation). Immediately prior to administration of medications, the patient was re-assessed for adequacy to receive sedatives. The heart rate, respiratory rate, oxygen saturations, blood pressure, adequacy of pulmonary ventilation, and response to care were monitored throughout the procedure. The physical status of the patient was re-assessed after the procedure. After I obtained informed consent, the scope was passed under direct vision. Throughout the procedure, the patient's blood pressure, pulse, and oxygen saturations were monitored continuously. The colonoscope was introduced through the anus and advanced to the cecum, identified by the appendiceal orifice, ileocecal valve and palpation. The colonoscopy was performed without difficulty. The patient tolerated the procedure well. The quality of the bowel preparation was good. Scope In: 9:16:00 AM Scope Withdrawal Time 0 hours 14 minutes 1 second Scope Out: 9:34:54 AM Total Procedure Duration Time 0 hours 18 minutes 54 seconds Findings: The perianal and digital rectal examinations were normal. Multiple small and large-mouthed diverticula were found in the recto-sigmoid colon, sigmoid colon and descending colon. Two sessile polyps were found in the sigmoid colon and cecum. The polyps were 1 to 2 mm in size. These polyps were removed with a hot snare. Resection and retrieval were complete. Verification of patient identification for the specimen was done. No additional abnormalities were found on retroflexion. Impression: - Diverticulosis in the recto-sigmoid colon, in the sigmoid colon and in the descending colon. - Two 1 to 2 mm polyps in the sigmoid colon and in the cecum, removed with a hot snare. Resected and retrieved. Recommendation: - Await pathology results. - Repeat colonoscopy in 5 years for surveillance. - Return to GI office in 1 week. - Continue present medications. Procedure Code(s): --- Professional --- 56812, Colonoscopy, flexible; with removal of tumor(s), polyp(s), or other lesion(s) by snare technique CPT copyright 2017 [employer]. All rights reserved. The codes documented in this report are preliminary and upon chief merchandising officer review may be revised to meet current compliance requirements. Ivan Mar DO 07/17/2022 9:40:33 AM This report has been signed electronically. Number of Addenda: 1 Note Initiated On: 07/17/2022 9:05 AM Addendum Number: 1 Addendum Date: 08/31/2022 6:09:31 AM MAC was used as sedation for this procedure. Ivan Mar DO 08/31/2022 6:09:35 AM This report has been signed electronically.
--- NOTE | 2022-07-17 09:42 | OP.CCLET_ITS ---
08/31/2022 Jb Cast MD [address] [place] [address] Re : Colonoscopy procedure for Danii Wolfe Dear Dr. Cast This procedure was performed on Sunday, July 17, 2022. My impressions and recommendations are as follows: Impressions : - Diverticulosis in the recto-sigmoid colon, in the sigmoid colon and in the descending colon. - Two 1 to 2 mm polyps in the sigmoid colon and in the cecum, removed with a hot snare. Resected and retrieved. Recommendations : - Await pathology results. - Repeat colonoscopy in 5 years for surveillance. - Return to GI office in 1 week. - Continue present medications. My findings are described in the full procedure note, which is enclosed. If I can be of further assistance, please feel free to contact me at . Sincerely, Ivan Mar, 07/17/2022 9:40:33 AM This report has been signed electronically.
[2022-07-17 09:45] VITALS: BP 120/85; BP 88/54; PULSE 61; RESP 16; O2SAT 92
[2022-07-17 09:45] LABS: Bedside Glucose 152 mg/dL (74-106)
[2022-07-17 09:50] VITALS: BP 107/58; BP 120/85; PULSE 59; RESP 16; O2SAT 93
[2022-07-17 09:56] VITALS: BP 103/59; BP 120/85; PULSE 64; RESP 16; O2SAT 96
[2022-07-17 10:17] VITALS: BP 120/85
== END 2022-07-17 10:23 | disposition home or self-care (01) ==
LOC: EN 07:47 → AC 07:48
PROVIDERS: PCP Family Medicine; Referring Provider Family Medicine; Visit Provider Internal Medicine Gastroenterology
PROC: 0DJD8ZZ Inspection of Lower Intestinal Tract, Via Natural or Artificial Opening Endoscopic (ICD-10-PCS; CPT 45378; principal; 2022-07-17 08:55)
DX: Z12.11 Encounter for screening for malignant neoplasm of colon (principal); D12.0 Benign neoplasm of cecum; D12.5 Benign neoplasm of sigmoid colon; K57.30 Diverticulosis of large intestine without perforation or abscess without bleeding; Z79.02 Long term (current) use of antithrombotics/antiplatelets; Z79.84 Long term (current) use of oral hypoglycemic drugs; Z79.899 Other long term (current) drug therapy; Z86.010 Personal history of colon polyps; Z85.3 Personal history of malignant neoplasm of breast
CPT/HCPCS: 45385; 82962; 88305; J7120; J2405

== ENCOUNTER → 2022-08-01 | Outpatient (CLI) | payer MEDICARE, OTHER, SELFPAY ==
[2021-06-10 07:21] VITALS: BMI 36.6
--- NOTE | 2022-08-01 08:50 | BD_ITS ---
STUDY: DUAL ENERGY X-RAY ABSORPTIOMETRY / DXA REASON FOR EXAM: Female, 76 years old. SCREENING TECHNIQUE: Bone Mineral Density (BMD) measurements of lumbar spine and left hip were obtained. COMPARISON: Comparison is made with prior study 07/27/2020. FINDINGS: Lumbar Spine (L1-L4): g/cm2 (1.110) / T-score (0.8) / Z-score (3.2) Findings are suggestive of normal bone density with a low fracture risk. Left Femur Total: g/cm2 (0.947) / T-score (0.0) / Z-score (1.9) Left Femoral Neck: g/cm2 (0.719) / T-score (-1.2) / Z-score (0.9) The T-Scores on the most recent prior examination were: Lumbar Spine (L1-L4): There has been worsening of bone density since the previous examination. Left Femur Total: which represents an improvement of 1.1%. BD/Dexa Bone Density Study IMPRESSION: The patient is considered osteopenic as outlined below according to World Edd Organization (WHO) criteria with a low fracture risk. There has been worsening of bone density since the previous examination. Reference Information: The T-score is the number of standard deviations above or below the standard which is normal for young adults at their peak bone mineral density. The World Health Organization (WHO) interprets the T-scores as follows: Above -1 Normal bone density Between -1 and -2.5 Osteopenia Equal to / or below -2.5 Osteoporosis As a practical clinical guideline, osteopenia may be graded as follows: Mild -1 through -1.5 Moderate -1.6 through -2.0 Severe -2.1 through -2.4 The Z-score is the number of standard deviations above or below age-matched controls. A Z-score of less than -1.5 would be considered abnormal. References: 1. NIH Osteoporosis and Related Bone Diseases www osteo.org 2. International Society for Clinical Densitometry www iscd.org 3. National Osteoporosis Foundation www nof.org Electronically Signed: Gabriel Tabor MD at 10:36 EDT ,
== END | disposition home or self-care (01) ==
LOC: OPBD 08:42
PROVIDERS: PCP Family Medicine; Visit Provider Internal Medicine Hematology & Oncology
DX: M85.852 Other specified disorders of bone density and structure, left thigh (principal); Z13.820 Encounter for screening for osteoporosis; Z79.811 Long term (current) use of aromatase inhibitors
CPT/HCPCS: 77080

== ENCOUNTER → 2022-11-15 | Outpatient (CLI) | payer MEDICARE, OTHER, SELFPAY ==
[2021-06-10 07:21] VITALS: BMI 36.6
--- NOTE | 2022-11-15 | IMM_PTH ---
PATIENT: GABBY TOWNSEND LOC: [facility] U#:[id number] AGE/SX: 77/F ROOM: RE11/15/[address]: Dr. Alexandre Otto MD : 1945 BED: DIS: 11/15/2022 SPEC #: [id number] RECD: 11/17/22 13:25 STATUS: LUZ REQ #: [id number] RENATA: 11/15/22 00:[address]: Alexandre Otto DEPT: IMMUNOHISTOCHEMISTRY RECD BY: Gianna Belle ENTERED: 11/17/22 13:27 SP TYPE: IMMUNO OTHR DR: Dr. Jb Cast MD Tissues: A - Chest wall, NOS Procedures: RCC (add) NAPSIN A (add) CK20 (add) CK5-6 (add) CK7 (add) CK8 (add) E-CAD (add) HEP PAR (add) HER2 CHONG (add) KI-67 (add) MAMM (add) NJ (add) TTF1 (add) Pankeratin (add) GATA3 (add) P40 (add) ER (initial) PHYSICIAN & INSTITUTION [facility] [id number] SPECIMEN INFORMATION: Tissue Source: A ? Left superior chest wall mass Clinical Info: Chest wall mass x2 Specimen Number: [id number] CPT code: 79627, 72141 x16 METHODOLOGY: Deparaffinized sections of prefer/formalin-fixed tissue or PAP/DQ stained slides are incubated with monoclonal/polyclonal antibodies/oligonucleotide probes. Localization is made via biotin free immunoperoxidase method. Appropriate controls are performed and reacted as expected. Results on target cell population are indicated in the following table: RESULTS: ANTIBODY / CLONE RESULT Block A ER (6F11) positive (>95%, strong intensity) NJ (1E2) positive (30%, weak intensity) AE1-3 (AE1/AE3/PCK26) positive CK7 (OV-TL12/30) negative CK8 (84oxivK84) positive CK20 (KS20.8) negative TTF-1 (8G7G3/1) negative Napsin A (Rabbit Polyclonal) negative HepPar (OCh1E5) negative RCC (PN-15) negative CK5-6 (D5 & 1684) negative P40 (BC28) negative Mammaglobin (31A5) positive GATA3 (L50-823) positive Ki-67 (30-9) positive, moderate Her-2neu (CB11) positive (3+) E-Cad (ECH-6) positive These tests were developed and their performance characteristics determined by [facility]. They may not have been cleared or approved by the U.S. Food and Drug Administration. The FDA has determined that such clearance or approval is not necessary. The above immunohistochemical/dualISH markers are ordered and reviewed by the Pathologist. INTERPRETATION: A. 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 SJ:tori 11/21/2022
--- NOTE | 2022-11-15 14:20 | MASS_PTH ---
PATIENT: GABBY TOWNSEND LOC: [facility] U#:[id number] AGE/SX: 77/F ROOM: RE11/15/[address]: Dr. Alexandre Otto MD : [id number] BED: DIS: 11/15/2022 SPEC #: [id number] RECD: 11/15/22 16:42 STATUS: LUZ REDeniz #: [id number] RENATA: 11/15/22 14:[address]: Alexandre Otto DEPT: SURGICAL PATHOLOGY RECD BY: Beronica Maddox ENTERED: 11/16/22 12:36 SP TYPE: Mass OTHR DR: MD Dr. Jb Li MD Tissues: A - Chest wall, NOS B - Chest wall, NOS Procedures: Surgery Specimen Level IV HEADER OPERATION: Biopsy of left chest wall mass x2 PRE-OP DIAGNOSIS: Chest wall mass x2 TISSUE SUBMITTED: A ? Left superior chest wall mass, B ? Left inferior chest wall mass MICROSCOPIC DIAGNOSIS A. Left superior chest wall mass, core biopsy: Consistent with recurrent/metastatic adenocarcinoma, consistent with breast primary (ductal carcinoma). See comment. B. Left inferior chest wall mass, core biopsy: Consistent with recurrent/metastatic adenocarcinoma, consistent with breast primary (ductal carcinoma). SJ:rg 11/17/2022 COMMENT A. Immunohistochemistry ([id number]) supports the above diagnosis. Tumor shows similar morphology in both specimen A & B. Please make reference to previous specimen ([id number]), right and left breast mastectomy with diagnosis of ?invasive ductal carcinoma.? Clinical correlation and appropriate follow up are necessary. MICROSCOPIC DESCRIPTION Slides are reviewed. GROSS DESCRIPTION A - Received in fixative is one container labeled with the patient's name and designated left superior mass. The specimen consists of one elongated piece of coreas soft tissue measuring 2 cm in length and 0.1 cm in diameter. The specimen is totally submitted in one cassette. B - Received in fixative is one container labeled with the patient's name and designated left inferior mass. The specimen consists of one elongated piece of coreas soft tissue measuring 1.5 cm in length and 0.1 cm in diameter. The specimen is totally submitted in one cassette. / SJ:rg 11/16/2022 TC:0 [facility]: [id number] x2 ADDENDUM ADDENDUM ADDENDUM ADDENDUM ADDENDUM ADDENDUM ADDENDUM ADDENDUM ADDENDUM ADDENDUM ADDENDUM ADDENDUM ADDENDUM ADDENDUM ADDENDUM ADDENDUM ADDENDUM ADDENDUM 03/26/2023 15:19 ADDENDUM 03/26/2023 15:19 ADDENDUM 03/26/2023 15:19 ADDENDUM 03/26/2023 15:19 ADDENDUM 03/26/2023 15:19 [facility] ADVANCED BREAST CANCER NGS REPORT FROM [facility] RESULT SUMMARY: Abnormal IMMUNOTHERAPY BIOMARKERS: Tumor Mutation [place]: Low (8.6 Mutations / MB) Microsatellite Instability: MSI Negative (2.44%) PERTINENT NEGATIVE RESULTS: The following genes are NEGATIVE for clinically relevant mutations. Mutational hotspots and surrounding exonic regions were interrogated for DNA level point mutations and indels (fusions not assayed). AKT1, AR, BESSY, ATR, ATRX, BARD1, BRAF, BRCA1, BRCA2, BRIP1, CDH1, CDK12, CHEK1, CHEK2, EGFR, EPCAM, ERBB3, ERBB4, ESR1, FANCA, FANCC, FANCL, FGFR1, FOXA1, KRAS, MLH1, MRE11A, MSH2, MSH6, MUTYH, MYC, NBN, PALB2, PIK3CA, PMS2, PTEN, RAD50, RAD51, RAD51B, RAD51C, RAD51D, RAD54L, RB1, RECQL4, TERT, TP53, XRCC2 Please see complete report in e-chart or EMR
== END | disposition home or self-care (01) ==
PROVIDERS: PCP Family Medicine; Visit Provider Surgery
DX: R22.2 Localized swelling, mass and lump, trunk (principal)
CPT/HCPCS: 88305; 88341; 88342

== ENCOUNTER → 2022-12-18 | Outpatient (CLI) | payer MEDICARE, OTHER, SELFPAY ==
[2021-06-10 07:21] VITALS: BMI 36.6
--- NOTE | 2022-12-18 12:33 | ECHODONC_ITS ---
Reason For Study: Malignant Neoplasm Procedure This was a 2D Doppler, Color Flow transthoracic echocardiogram. Myocardial strain analysis was performed in this exam to aid in the assessment of cardiac function. Exam performed in department. Left Ventricle Normal LV size. Left ventricular systolic function is normal. The estimated ejection fraction is 65 %. Stage 1 diastolic dysfunction. No regional wall motion abnormalities noted. Right Ventricle Normal RV size. Normal systolic function. Atria Normal left atrium. Normal right atrium. Mitral Valve Normal mitral valve. Tricuspid Valve Normal tricuspid valve. Mild tricuspid valve insufficiency. Pulmonary artery systolic pressure is 36 mmHg. Aortic Valve Trisinus/trileaflet aortic valve. Pulmonic Valve Normal pulmonic valve. Great Vessels Normal aortic root. The pulmonary artery is normal size. Normal inferior vena cava. Pericardium/Pleural No pericardial effusion. MMode/2D Measurements & Calculations LVIDd: 4.3 cm IVSd: 1.2 cm Ao root diam: 3.5 cm LVIDs: 2.0 cm LVPWd: 1.1 cm LA dimension: 4.6 cm RVDd: 3.3 cm FS: 54.2 % LAV(MOD-bp): 47.1 ml LVAd ap4: 23.9 cm2 SV(MOD-sp4): 47.9 ml LAV(MOD-bp) Indexed: 23.3 ml/m2 LVLd ap4: 6.9 cm LAV(MOD-sp2): 36.5 ml EDV(MOD-sp4): 69.4 ml LAV(MOD-sp4): 56.2 ml EDV(sp4-el): 70.6 ml LVAs ap4: 11.7 cm2 LVLs ap4: 5.7 cm ESV(MOD-sp4): 21.5 ml ESV(sp4-el): 20.6 ml EF(MOD-sp4): 69.0 % EF(sp4-el): 70.9 % SV(sp4-el): 50.1 ml LA A4 area: 20.6 cm2 RA A4 area: 16.5 cm2 Time Measurements MV dec time: 0.30 sec Doppler Measurements & Calculations MV E max lc: 66.8 cm/sec Lat Peak E' Lc: 10.0 cm/sec Med Peak E' Lc: 6.2 cm/sec MV A max lc: 91.8 cm/sec E/E' lat: 6.7 E/E' med: 10.8 MV E/A: 0.73 MV V2 max: 103.3 cm/sec MV P1/2t max lc: 95.3 cm/sec Ao V2 max: 190.7 cm/sec MV max P.3 mmHg MV P1/2t: 107.8 msec Ao max P.6 mmHg MV V2 mean: 53.5 cm/sec Ao V2 mean: 131.8 cm/sec MV mean P.4 mmHg MV dec slope: 258.9 cm/sec2 Ao mean P.8 mmHg MV V2 VTI: 27.0 cm MVA(P1/2t): 2.0 cm2 Ao V2 VTI: 41.0 cm AV (velocity ratio): 0.55 LV V1 max: 117.8 cm/sec PA V2 max: 129.4 cm/sec PI dec slope: 264.8 cm/sec2 LV V1 max P.6 mmHg LV V1 mean P.0 mmHg LV V1 mean: 80.8 cm/sec LV V1 VTI: 22.4 cm TR max lc: 285.4 cm/sec TR max P.6 mmHg ECHO/ONC Echo Complete Interpretation Summary Normal LV size. Left ventricular systolic function is normal. The estimated ejection fraction is 65 %. Stage 1 diastolic dysfunction. The global longitudinal strain = -16.2% (abnormal). The global longitudinal str ain is borderline abnormal. Ordering Physician: Jessica Ochoa Referring Physician: Jb Cast Performed By: Ken Watkins RCS
== END | disposition home or self-care (01) ==
LOC: CVS 12:32
PROVIDERS: PCP Family Medicine; Visit Provider Internal Medicine Hematology & Oncology
DX: I07.1 Rheumatic tricuspid insufficiency (principal)
CPT/HCPCS: 93306; 93356

== ENCOUNTER 2022-12-20 08:54 | Day surgery (SDC) | payer MEDICARE, OTHER, SELFPAY ==
[2021-06-10 07:21] VITALS: BMI 36.6
--- NOTE | 2022-12-18 12:31 | EKG12_ITS ---
Test Reason : PRE-OP Blood Pressure : / mmHG Vent. Rate : 080 BPM Atrial Rate : 080 BPM P-R Int : 144 ms QRS Dur : 080 ms QT Int : 386 ms P-R-T Axes : 002 018 015 degrees QTc Int : 445 ms Normal sinus rhythm with sinus arrhythmia Normal ECG Confirmed by SUDHIR CHERY, IAN ([id number]), city editor JESSICA HOFFMAN ([id number]) on 12/19/2022 11:29:33 AM Referred By: Alexandre Otto Confirmed By:IAN PEGUERO MD
[2022-12-20] VITALS (9 sets, daily range): BP systolic 100–125; BP diastolic 54–69; PULSE 76–95; RESP 16; TEMP 36.3–36.6; O2SAT 91–97; BMI 34.8
--- NOTE | 2022-12-20 09:07 | PCM.HP.BLA ---
History and Physical Date of Admission: 12/20/22 Visit Reasons:?PORT PLACEMENT Chief Complaint: port placement Traveling Engineer Required: No Is patient in pain?: No Allergies iodine Allergy (Severe, Verified 12/13/22 06:52) Rashpovidone-iodine [From Betadine] Adverse Reaction (Severe, Verified 12/13/22 06:52) Itchingpravastatin sodium [From Pravachol] Adverse Reaction (Severe, Verified 12/13/22 06:52) LEG CRAMPSrosuvastatin calcium [From Crestor] Adverse Reaction (Severe, Verified 12/13/22 06:52) LEG CRAMPSsimvastatin Adverse Reaction (Severe, Verified 12/13/22 06:52) LEG CRAMPSsoap [From Betadine] Adverse Reaction (Severe, Verified 12/13/22 06:52) Itchingramipril Adverse Reaction (Intermediate, Verified 12/13/22 06:52) coughing Medications potassium chloride 10 mEq tablet,extended release(part/cryst) 20 meq PO BIDCM 07/29/19 [Rx Confirmed 12/13/22] aspirin 81 mg chewable tablet 81 mg PO DAILY 05/24/20 [History Confirmed 12/13/22] ergocalciferol (vitamin D2) 1,250 mcg (50,000 unit) capsule 50,000 unit PO 2XW supplement 05/24/20 [History Confirmed 12/13/22] dulaglutide 0.75 mg/0.5 mL subcutaneous pen injector (Trulicity) 0.75 mg subcut QWEEK 02/22/21 [History Confirmed 12/13/22] metformin 1,000 mg tablet 1,000 mg PO BID 03/09/21 [History Confirmed 12/13/22] nitroglycerin 0.4 mg sublingual tablet 0.4 mg sublingual Q5M PRN Cardiac/Chest Pain #25 tabs 07/22/21 [Rx Confirmed 12/13/22] hydrochlorothiazide 25 mg tablet 25 mg PO DAILY #90 tabs 08/17/21 [Rx Confirmed 12/13/22] atorvastatin 20 mg tablet 20 mg PO QPM 10/03/21 [History Confirmed 12/13/22] calcium carbonate 600 mg calcium (1,500 mg) tablet (Calcium) 600 mg PO BID 01/06/22 [History Confirmed 12/13/22] isosorbide mononitrate 30 mg tablet,extended release 24 hr 30 mg PO DAILY #90 tabs 01/06/22 [Rx Confirmed 12/13/22] anastrozole 1 mg tablet 1 mg PO DAILY 90 days #90 tabs 06/12/22 [Rx Confirmed 12/13/22] metoprolol tartrate 50 mg tablet 50 mg PO BID #180 tabs 10/18/22 [Rx Confirmed 12/13/22] Breast prosthesis (left) #1 ea 11/07/22 [Rx Confirmed 12/13/22] Breast prosthesis (right) #3 ea 11/07/22 [Rx Confirmed 12/13/22] Mastectomy bra #3 ea 11/07/22 [Rx Confirmed 12/13/22] clopidogrel 75 mg tablet 75 mg PO DAILY #90 tabs 11/13/22 [Rx Confirmed 12/13/22] PFSH Medical History? Arthritis Atherosclerotic heart disease of [place] coronary artery without angina pectoris Bilateral malignant neoplasm of breast in female Bone metastases Breast cancer CAD (coronary artery disease) Cancer Cardiology follow-up encounter Chemotherapy induced diarrhea Chemotherapy management, encounter for CPAP (continuous positive airway pressure) dependence Diabetes Diabetes mellitus type 2 in obese Essential hypertension Fracture of hip, right, closed Genetic counseling Heel spur High cholesterol History of colon polyps History of DVT (deep vein thrombosis) History of echocardiogram History of left heart catheterization (LHC) (~02/02/21) History of stress test HLD (hyperlipidemia) Liver metastases Mass of left breast 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 Non-smoker Nonrheumatic mitral valve regurgitation Nonrheumatic tricuspid (valve) insufficiency ZITA on CPAP Osteoarthritis PORT PLACEMENT Presence of stent in coronary artery (~03/12/12) Pulmonary hypertension Recurrent breast cancer Screening for colon cancer Sleep apnea Surgical History? History of bilateral mastectomy History of cardiac catheterization History of carpal tunnel surgery History of cholecystectomy History of colonoscopy History of coronary artery bypass graft x 3 (~02/09/21) History of knee joint replacement History of right breast biopsy History of surgery Postsurgical percutaneous transluminal coronary angioplasty (PTCA) status Presence of coronary angioplasty implant and graft (~03/12/12) S/P coronary artery bypass graft x 3 (~02/09/21) Family History? Sister Pancreatic cancer Diabetes Heart disease Leukemia Breast cancer HypertensionBrother Diabetes Bone cancer Heart disease Hypertension CVA (cerebral vascular accident)Father ?? No problems noted. Social History? Smoking Status:? Never smoker alcohol intake:? never substance use type:? does not use caffeine:? Yes Type: tea Number of servings: 1 HPI HPI HPI: 77-year-old female who I have most recently seen in the office on November 15, 2022.? At that time I did an ultrasound-guided needle core biopsy left anterior mastectomy chest wall site x2 masses. A.? Left superior chest wall mass, core biopsy: Consistent with recurrent/metastatic adenocarcinoma, consistent with breast primary (ductal carcinoma). See comment. B.? Left inferior chest wall mass, core biopsy: Consistent with recurrent/metastatic adenocarcinoma, consistent with breast primary (ductal carcinoma Is yet to have a brain MRI.? She may need cerebral radiation.? She was not quite sure she wants to proceed with any of this.? It is very evident however that she is enjoying an extraordinarily high quality of life and her mentation is very clear and intact Patient presents today the patient's most recent medical oncology appointment with Dr. Jessica Ochoa on December 11, 2022.? The core biopsies estrogen receptor greater than 95% positive.? Progesterone receptor positive at 30%.? HER2/homero positive at 3+.? The patient had a PET/CT on December 06, 2022.? She had demonstrated increased uptake left mastectomy site.? There is increased uptake in the left axillary and retropectoral lymph nodes and retroclavicular lymph nodes.? There is Hanssen activity and seen in the left lobe of the liver.? Also left adrenal gland.? She is to be treated with Taxotere and Herceptin and Perjeta.? I requested the need for port placement 77-year-old female.? On January 16, 2018 I performed bilateral total mastectomies for her with bilateral sentinel lymph node biopsies.? The right breast a 1.5 cm area of invasive ductal carcinoma no lymphovascular invasion and 5 lymph nodes negative.? Margins were clear.? The left breast had invasive ductal carcinoma 1.5 cm in diameter with negative margins no lymphovascular invasion's and 3 sentinel lymph nodes were negative.? She had prolonged wound healing of the right chest wall that required wound VAC to facilitate. Patient is being referred because of lumps of her chest wall on the left.? It is of note that April 05, 2020 a left chest wall core biopsy was performed showing fragments of fibroadipose tissue and fat necrosis chronic inflammation and histiocytic reaction and was negative for malignancy at that time.? She is maintained on anastrozole therapy States that she has noted to left chest wall masses.? 1 has been there for an extended period of time and is simply been getting larger that is the more inferior 1.? The more superior 1 close to the pectoralis major is newer and it is slightly tender.? It is unclear as to whether either of these 2 sites were the sites that were biopsied April 05, 2020 ROS General General: Yes breast cancer; No weight change, appetite, fatigue, colon cancer or weakness HEENT HEENT: No difficulty swallowing, eye injury, eye surgery, swollen glands or hoarseness Endo Endocrine: Yes diabetes mellitus; No thyroid disease, thyroid cancer, Hair loss, heat intolerance or cold intolerance Skin Skin: No rash or changing moles Musc Musculoskeletal: Yes arthritis; No back problems, rheumatoid arthritis, gout or joint pain Cardio Cardiovascular: Yes murmur, heart disease, high blood pressure and heart stent; No pacemaker, atrial fibrillation, heart attack, palpitations, shortness of breat with exertion or chest pain Psych Psychiatric: No depression, anxiety or hearing voices Resp Respiratory: No shortness of breath, Yes sleep apnea, No cough, No COPD, No asthma, No emphysema and No wheezing Gastro Gastrointestinal: No abdominal pain, No nausea or vomiting, No diarrhea, No constipation, No blood in stool, No acid reflux, No hemorrhoids, No ulcers, No gallbladder problem and No black,tarry stools Randy Hematologic: Yes blood thinners, No blood disorders, No bleeding, No anemia and No blood clots Neuro Neurologic: No system reviewed and no additional complaints, except as documented, No as per HPI, No abnormal gait, No abnormal hearing, No abnormal movements, No abnormal speech, No behavioral changes, No burning sensations, No confusion, No convulsions, No disequilibrium, No dizziness, No localized weakness, No frequent falls, No headache(s), No lack of coordination, No loss of vision, No memory loss, No numbness, No other visual disturbances, No radicular pain, No restless legs, No sensory deficit, No syncope, No tingling, No tremor(s), No weakness and No other Exam Const General: cooperative, healthy appearing, comfortable and no acute distress [facility] Head: normal to inspection Eyes General: appearance normal, both eyes and all related structures Neck Neck: normal visual inspection Chest Other: Bilateral mastectomies.? Obvious tumor bulk left chest wall laterally Well-healed median sternotomy Resp Other: Slightly diminished bibasilar Cardio Rate: regular rate Rhythm: regular rhythm GI Palpation: soft and no hepatosplenomegaly Neuro General: patient alert, patient awake and patient oriented x3 Extrem General: no calf tenderness Psych Appearance: grossly normal Assessment and Plan Assessment and Plan (1) 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: ?Status:?Acute (2) Bone metastases: ?Status:?Acute (3) Liver metastases: ?Status:?Acute (4) Recurrent breast cancer: ?Status:?Acute ?Plan: The patient despite her metastatic disease appears to be enjoying an extraordinarily high quality of life.? I do recommend to her a port placement and will consider a right internal jugular placement.? I think with her high mentation and quality that at least a trial of oncologic treatment would be appropriate.? If the patient then elects to cease treatment then at least she would have given it an attempt.? She concurs with that.? With that in mind we will proceed with planned port placement on December 20, 2022.? I have explained the technique, benefit, risk, alternatives.? She has had an opportunity to ask and have questions answered.? We will proceed as noted. Copy: Dr. Jessica Ochoa and Dr. Jb Otto M.D., F.A.C.S. Plan I anticipate attempt at right internal jugular port placement.? The patient is aware of the technique, benefit, risk, alternatives.? She has had an opportunity to ask and have questions answered.? We will expedite the patient's care pending operating room availability. Copy: Dr. Jessica Ochoa and Dr. Ghassan Fox and Dr. Jb Otto M.D., F.A.C.S I have examined the patient and the H&P has been reviewed. There are no clinical changes since date of exam. Alexandre Otto M.D., F.A.C.S.
[2022-12-20] MEDS: Lactated Ringers 1,000 ML 15 ML IV (09:20)
--- NOTE | 2022-12-20 09:47 | DCINST_ITS ---
Discharge Instructions Procedure Port-A-Cath Diet Discharge Diet: No restrictions (Pain medication may cause nausea. You should typically eat light foods as you take your pain medication.) Activity Discharge Activity: Return to Normal Activity and May Shower (Leave the bandage on for 2-3 days. When you remove the bandage, leave the steri-strips intact until they fall off.) Additional Activity Instructions:: May not drive, work with heavy equipment, or sign legal documents for [address]. [address] if you are no longer taking narcotic pain medications. You may drive when you are no longer taking pain medications. Dressing / Incision Additional Dressing/Incision Instructions:: Leave the bandage on for 2-3 days. When you remove the bandage, leave the steri-strips intact until they fall off. Follow Up Care Please Follow Up With: Alexandre Otto MD When: Is call [phone] for any difficulties. Mandatory office follow-up will not be required unless of course you have concerns. Test Results: Test results from this visit will be discussed in further detail at your follow- up appointment, if applicable. Discharge Plan Admission Primary Reason for Your Visit: Establishment of IV access for chemotherapy Attending Provider: Alexandre Otto Primary Care Provider: Jb Cast Discharge Orders/Prescriptions Prescriptions: Continued aspirin 81 mg tablet,chewable 81 mg PO DAILY nitroglycerin 0.4 mg tablet, sublingual 0.4 mg SL Q5M PRN (Reason: Cardiac/Chest Pain) Qty: 25 3RF metformin 1,000 mg tablet 1,000 mg PO BID calcium carbonate [Calcium 600] 600 mg calcium (1,500 mg) tablet 600 mg PO BID isosorbide mononitrate 30 mg tablet extended release 24 hr 30 mg PO DAILY Qty: 90 4RF atorvastatin 20 mg tablet 20 mg PO QPM (DME) Breast prosthesis (left) See Rx Instructions .Route .MEDSUPPLY Qty: 1 0RF Rx Instructions: As directed (DME) Breast prosthesis (right) See Rx Instructions .Route .MEDSUPPLY Qty: 3 3RF Rx Instructions: As directed (DME) Mastectomy bra See Rx Instructions .Route .MEDSUPPLY Qty: 3 3RF Rx Instructions: As directed ondansetron 8 mg tablet,disintegrating 8 mg PO Q8H PRN (Reason: nausea and vomiting) Qty: 30 2RF lidocaine-prilocaine 2.5-2.5 % cream 1 applic topical ONCE PRN (Reason: port access) 30 Days Qty: 30 2RF dexamethasone 4 mg tablet 8 mg PO .COMPLEX Qty: 12 5RF Rx Instructions: 8 mg orally ONLY the day before, the day of, and the day after chemotherapy; omeprazole magnesium [Prilosec OTC] 20 mg tablet,delayed release (DR/EC) 20 mg PO DAILY Qty: 30 0RF ergocalciferol (vitamin D2) 1,250 mcg (50,000 unit) capsule 50,000 unit PO MOFR Label Comments: Vitamin D supplement TAKES 1 TAB 2X PER WEEK TAKES SUNDAY AND SUNDAY--supplement potassium chloride 10 MEQ tablet 20 meq PO BIDCM 0RF Trulicity 0.75 mg/0.5 mL pen injector 0.75 mg SC MO Rx Instructions: mondays hydrochlorothiazide 25 mg tablet 25 mg PO DAILY Qty: 90 4RF metoprolol tartrate 50 mg tablet 50 mg PO BID Qty: 180 3RF clopidogrel 75 mg tablet 75 mg PO DAILY Qty: 90 3RF Referrals / Follow Up: Jb Cast MD [Primary Care Provider] - Disposition Disposition (needs filled in before D/C Order can be placed): Home, Self Care
[2022-12-20] MEDS: Cefazolin 2 GM in 0.9% Normal Saline 100 ML IV (10:37)
[2022-12-20] MEDS: Lidocaine 1% (30 ml sdv) 30 ML Vial (10:37)
[2022-12-20] MEDS: Bupivacaine Mpf 0.5% 30 ML VIAL (10:37)
[2022-12-20 10:56] LABS: Bedside Glucose 116 mg/dL (74-106)
--- NOTE | 2022-12-20 11:43 | OP.PCM_ITS ---
Report of Operation Date of Procedure: 12/20/22 Pre-Operative Diagnosis: Metastatic breast cancer Post-Operative Diagnosis: Same Surgery/Procedure Performed:: Right internal jugular 6 [place] [employer] placemen reference [id number] Lot number [id number], expiry date 06/25/2024 t Description of Surgical Findings:: Timeout informed consent was obtained. The patient was taken to the operating placed upon the table the right neck was sterilely prepped and draped with chlorhexidine. She received 2 g of Ancef intravenously. 1% lidocaine mixed 50- 50 with 0.25% Marcaine was used as a local anesthetic. A total of 22 cc was used. Under ultrasound guidance local was instilled over the right internal jugular vein micropuncture technique used micropuncture wire inserted 6 micropuncture sheath inserted an 035 J-wire inserted fluoroscopy demonstrated good positioning local was instilled down upon the right anterior chest wall midclavicular space second and costal area transverse incision was created electrocautery was used to make a subcutaneous pocket the tubing was tunneled from the neck to the chest a sheath dilator was placed over the wire the dilator wire removed the catheter advanced through the sheath the sheath was split the cath was positioned at the SVC atrial junction it was amputated length connected the port secured with a port attachment device the port was placed in the pocket secured there with 2-0 silk the port site was closed interrupted 3-0 Vicryl and the neck site with interrupted 5-0 Vicryl subdermal stitches. The port was accessed it aspirated easily it was flushed with saline and then 2 cc of heparinized saline Steri-Strips Telfa OpSite dressings applied sponge and instrument and needle counts were reported to the surgeon to be correct Specimens none. Drains none. Blood loss minimal. The patient was taken to the recovery room in satisfied condition without apparent complication. Stat portable chest x-ray is pending. Alexandre Otto M.D., F.A.C.S. Surgeon: Alexandre Otto Type of Anesthesia: Local MAC Anesthesiologist: Frank Cabral
--- NOTE | 2022-12-20 11:50 | RAD_ITS ---
EXAM: XR CHEST, 1 VIEW CLINICAL INDICATION: Line placement TECHNIQUE: Frontal view of the chest. This report was created using [employer] report generation technology. COMPARISON: 09/05/2021. FINDINGS: LUNGS AND PLEURAL SPACES: Prominent interstitial lung markings in the left midlung, left lower lobe and right upper lobe. No effusion. No pneumothorax. HEART: Cardiomegaly is unchanged. Intact sternal wires from prior CABG procedure. MEDIASTINUM: Central airways and mediastinal contour are unremarkable. BONES/JOINTS: Unremarkable. SOFT TISSUES: Unremarkable. TUBES, LINES AND DEVICES: Right IJ approach karyn catheter tip is in the proximal SVC. RAD/CXR for Line Placement IMPRESSION: 1. No pneumothorax following right IJ approach portacatheter placement. 2. Suspicious interstitial infiltrates in the lower half of left lung and right upper lobe. If pneumonia is a clinical consideration, HRCT chest will help clarify. Electronically Signed: Allen Martinez MD at 12:25 [facility] ,
== END 2022-12-20 13:15 | disposition home or self-care (01) ==
LOC: SDC 08:55 → AC 08:56
PROVIDERS: PCP Family Medicine; Referring Provider Surgery; Visit Provider Surgery
PROC: (CPT 36561; principal; 2022-12-20 10:45)
DX: Z45.2 Encounter for adjustment and management of vascular access device (principal); C79.51 Secondary malignant neoplasm of bone; C78.7 Secondary malignant neoplasm of liver and intrahepatic bile duct; C50.919 Malignant neoplasm of unspecified site of unspecified female breast; E11.9 Type 2 diabetes mellitus without complications; Z79.84 Long term (current) use of oral hypoglycemic drugs; Z79.02 Long term (current) use of antithrombotics/antiplatelets; Z79.899 Other long term (current) drug therapy; Z85.3 Personal history of malignant neoplasm of breast; Z90.13 Acquired absence of bilateral breasts and nipples; Z95.1 Presence of aortocoronary bypass graft
CPT/HCPCS: 36561; 00532; 71045; 77001; 82962; 93005; J7120

== ENCOUNTER → 2022-12-21 | Outpatient (CLI) | payer MEDICARE, OTHER, SELFPAY ==
[2021-06-10 07:21] VITALS: BMI 36.6
[2022-12-21 12:56] LABS: AST(SGOT) 20 U/L (15-37); Alanine Aminotransfer ALT/SGPT 19 U/L (13-56); Albumin, Serum 3.7 g/dL (3.2-5.0); Alkaline Phosphatase 80 U/L (45-117); Bilirubin, Direct 0.16 mg/dL (0.00-0.30); Cholesterol 166 mg/dL (200); Globulin 3.8 g/dL (2.2-4.2); High Density Lipoprotein 54 mg/dL; Protein, Total 7.5 g/dL (6.4-8.2); Triglycerides 184 mg/dL; Very Low Density Lipoprotein 37 mg/dL (5-40)
== END | disposition home or self-care (01) ==
LOC: MTLAB 09:45
PROVIDERS: PCP Family Medicine; Referring Provider Physician Assistant Medical; Visit Provider Physician Assistant Medical
DX: E78.5 Hyperlipidemia, unspecified (principal)
CPT/HCPCS: 36415; 80061; 80076

== ENCOUNTER → 2022-12-25 | Outpatient (CLI) | payer MEDICARE, OTHER, SELFPAY ==
[2021-06-10 07:21] VITALS: BMI 36.6
--- NOTE | 2022-12-25 12:16 | MRI_ITS ---
HISTORY: Restaging recurrent breast cancer. TECHNIQUE: Multiplanar and multisequence MR images of the brain were obtained before and after the intravenous administration of 19 mL Clariscan. 669 images. COMPARISON: PET-CT 12/06/2022. FINDINGS: BRAIN PARENCHYMA: Mild periventricular white matter changes. No enhancing lesion in the brain parenchyma. No abnormal focus of restricted diffusion. No acute intracranial hemorrhage identified. CSF SPACES: Mild generalized volume loss. No significant midline shift or other mass effect.No extra-axial fluid collection. VASCULAR SYSTEM: Major intracranial flow voids are maintained. PARANASAL SINUSES AND MASTOID AIR CELLS: No significant air fluid levels. ORBITS: Symmetric contents. MRI/Brain W/WO Contrast IMPRESSION: No evidence for intracranial metastatic disease. Mild chronic involutional and white matter changes. Electronically Signed: Yoly Hernandez MD at 15:52 EST ,
== END | disposition home or self-care (01) ==
LOC: MRI 12:16
PROVIDERS: PCP Family Medicine; Referring Provider Internal Medicine Hematology & Oncology; Visit Provider Internal Medicine Hematology & Oncology
DX: C50.919 Malignant neoplasm of unspecified site of unspecified female breast (principal)
CPT/HCPCS: 70553; A9575

== ENCOUNTER 2023-01-02 10:13 | Emergency (ER) | payer MEDICARE, OTHER, SELFPAY ==
[2021-06-10 07:21] VITALS: BMI 36.6
[2023-01-02 10:15] VITALS: BP 140/75; PULSE 96; RESP 14; TEMP 36.2; O2SAT 95; BMI 33.5
--- NOTE | 2023-01-02 10:33 | EX.ED.DYSGE1 ---
HPI History of Present Illness Chief Complaint: Nausea/Vomiting/Diarrhea Detail of Chief Complaint: Nausea, vomiting, and diarrhea x6 days Informant: patient Narrative Narrative: Patient presents with vomiting and diarrhea x6 days. Patient states that she had chemotherapy 6 days ago and later that evening developed the symptoms. Patient vomiting frequently and having frequent watery stools. Patient states that about a week and 1/2 to 2 weeks ago she had a cold and was treated with antibiotics. Patient denies blood in her stool or black tarry stool. Patient says she cannot keep anything down. Overall she feels weak. Patient complains of some myalgias. She denies fever. She denies urinary symptoms. Prior similar symptoms: No PFSH PFSH Medical History Arthritis Atherosclerotic heart disease of [place] coronary artery without angina pectoris Bilateral malignant neoplasm of breast in female Bone metastases Breast cancer CAD (coronary artery disease) Cancer Cardiology follow-up encounter Chemotherapy induced diarrhea Chemotherapy management, encounter for CPAP (continuous positive airway pressure) dependence Diabetes Diabetes mellitus type 2 in obese Encounter for education Essential hypertension Fracture of hip, right, closed Genetic counseling Heel spur High cholesterol History of colon polyps History of DVT (deep vein thrombosis) History of echocardiogram History of left heart catheterization (LHC) (~02/02/21) History of stress test HLD (hyperlipidemia) Hypertension Liver metastases Mass of left breast 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 Non-smoker Nonrheumatic mitral valve regurgitation Nonrheumatic tricuspid (valve) insufficiency Osteoarthritis PORT PLACEMENT Presence of stent in coronary artery (~03/12/12) Pulmonary hypertension Recurrent breast cancer Screening for colon cancer Home Medications potassium chloride 10 mEq tablet,extended release(part/cryst) 20 meq PO BIDCM 07/29/19 [Rx Last Taken Unknown] aspirin 81 mg chewable tablet 81 mg PO DAILY 05/24/20 [History Last Taken 02/02/21] ergocalciferol (vitamin D2) 1,250 mcg (50,000 unit) capsule 50,000 unit PO MOFR supplement 05/24/20 [History Last Taken Unknown] dulaglutide 0.75 mg/0.5 mL subcutaneous pen injector (Trulicity) 0.75 mg subcut MO 02/22/21 [History Last Taken Unknown] metformin 1,000 mg tablet 1,000 mg PO BID 03/09/21 [History Last Taken Unknown] nitroglycerin 0.4 mg sublingual tablet 0.4 mg sublingual Q5M PRN Cardiac/Chest Pain #25 tabs 07/22/21 [Rx Last Taken Unknown] hydrochlorothiazide 25 mg tablet 25 mg PO DAILY #90 tabs 08/17/21 [Rx Last Taken Unknown] atorvastatin 20 mg tablet 20 mg PO QPM 10/03/21 [History Last Taken Unknown] calcium carbonate 600 mg calcium (1,500 mg) tablet (Calcium) 600 mg PO BID 01/06/22 [History Last Taken Unknown] isosorbide mononitrate 30 mg tablet,extended release 24 hr 30 mg PO DAILY #90 tabs 01/06/22 [Rx Last Taken 12/20/22] metoprolol tartrate 50 mg tablet 50 mg PO BID #180 tabs 10/18/22 [Rx Last Taken Unknown] Breast prosthesis (left) #1 ea 11/07/22 [Rx Last Taken Unknown] Breast prosthesis (right) #3 ea 11/07/22 [Rx Last Taken Unknown] Mastectomy bra #3 ea 11/07/22 [Rx Last Taken Unknown] clopidogrel 75 mg tablet 75 mg PO DAILY #90 tabs 11/13/22 [Rx Last Taken 12/16/22] dexamethasone 4 mg tablet 8 mg PO .COMPLEX #12 tabs 12/18/22 [Rx Last Taken Unknown] lidocaine-prilocaine 2.5 %-2.5 % topical cream 1 applic topical ONCE PRN port access 30 days #30 grams 12/18/22 [Rx Last Taken Unknown] omeprazole magnesium 20 mg tablet,delayed release (Prilosec OTC) 20 mg PO DAILY #30 tabs 12/18/22 [Rx Last Taken Unknown] ondansetron 8 mg disintegrating tablet 8 mg PO Q8H PRN nausea and vomiting #30 tabs 12/18/22 [Rx Last Taken Unknown] Allergy/AdvReac Type Severity Reaction Status Date / Time iodine Allergy Severe Rash Verified 01/02/23 10:19 povidone-iodine AdvReac Severe Itching Verified 01/02/23 10:19 [From Betadine] pravastatin sodium AdvReac Severe LEG CRAMPS Verified 01/02/23 10:19 [From Pravachol] rosuvastatin calcium AdvReac Severe LEG CRAMPS Verified 01/02/23 10:19 [From Crestor] simvastatin AdvReac Severe LEG CRAMPS Verified 01/02/23 10:19 soap [From Betadine] AdvReac Severe Itching Verified 01/02/23 10:19 ramipril AdvReac Intermediate coughing Verified 01/02/23 10:19 Family History Sister Pancreatic cancer Diabetes Heart disease Leukemia Breast cancer Hypertension Brother Diabetes Bone cancer Heart disease Hypertension CVA (cerebral vascular accident) Father No problems noted. Surgical History History of bilateral mastectomy History of cardiac catheterization History of carpal tunnel surgery History of cholecystectomy History of colonoscopy History of coronary artery bypass graft x 3 (~02/09/21) History of knee joint replacement History of right breast biopsy History of surgery Hx of colonoscopy Postsurgical percutaneous transluminal coronary angioplasty (PTCA) status Presence of coronary angioplasty implant and graft (~03/12/12) S/P coronary artery bypass graft x 3 (~02/09/21) Social History Smoking Status: Never smoker alcohol intake: never substance use type: does not use caffeine: Yes Type: tea Number of servings: 1 ROS ROS ED Review of Systems ROS Unobtainable: other Constitutional Constitutional ED: Reports lethargy; Denies chills, fever(s), sweats or weight loss Eyes Eyes: Denies blurry vision, change in vision or diplopia ENT ENT ED: Denies rhinorrhea or sore throat Cardiovascular Cardiovascular: Denies chest pain, orthopnea or racing heartbeat Respiratory/Chest Respiratory/Chest: Denies cough, dyspnea, dyspnea on exertion, orthopnea or sputum Gastrointestinal Gastrointestinal: Reports diarrhea, nausea and vomiting; Denies abdominal pain Genitourinary Genitourinary ED: Denies dysuria, hematuria or urinary frequency Musculoskeletal Musculoskeletal: Denies arthralgias, back pain, myalgias or neck pain Integumentary Denies abscess, Abrasions or rash Neurologic Neurologic: Denies headache(s) or weakness Psychiatric Psychiatric: Denies anxiety, depression or suicidal thoughts Endocrine Endocrinology: Denies polydipsia, polyphagia or polyuria Hematologic/Lymphatic Hematologic/Lymphatic: Denies easy bleeding, easy bruising or lymphadenopathy Allergic/Immunologic Allergic/Immunologic ED: Denies mouth swelling, tongue swelling or urticaria EXAM Physical Exam Const Vital Signs: 01/02/23 10:15 01/02/23 11:24 Temperature 97.1 F L Temperature Source Temporal Pulse Rate 96 94 Respiratory Rate 14 17 Blood Pressure 140/75 H 139/66 H Blood Pressure Mean 96 90 Pulse Ox 95 95 Oxygen Delivery Method Room Air Room Air Positive well nourished and well developed General Appearance ED: well developed and NAD HEENT Reports TM's clear and moist mucous membranes normocephalic and atraumatic; Negative for trauma or tenderness Tympanic Membrane ED: Yes TM's clear Eyes PERRL and EOMs intact bilaterally General Eye ED: Negative for pale conjunctiva or scleral icterus Neck no lymphadenopathy, supple and no JVD General: Negative for tenderness Chest Wall inspection of chest normal and palpation of chest normal Chest: Negative for tenderness Resp normal respiratory effort and clear to auscultation bilaterally Effort and Inspection: Negative for respiratory distress or pain with movement Auscultation: Negative for rhonchi, wheezes or diminished lung sounds Cardio regular rate, regular rhythm, S1 normal heart sound, S2 normal heart sound and no murmurs Peripheral Pulses: pulses 2+ throughout GI normal to inspection, nondistended, normoactive bowel sounds, soft to palpation, non-tender, non-distended and no masses Back/Spine no CVA tenderness and no thoracic nor lumbar tenderness Extremity normal to inspection General Extremety ED: Negative for edema General Extremity: Negative for edema Neuro oriented x3, CN's II-XII intact bilaterally, no sensory deficits noted and gait normal Sensorium / Orientation: awake, alert, oriented to person, oriented to place and oriented to time Motor Exam: strength 5/5 throughout and strength abnormal Psych mental status grossly normal Skin no rashes or lesions noted and no wounds MDM MDM MDM Narrative Medical decision making narrative: IV established on arrival. Patient given liter mostly of fluid bolus. Patient given Zofran 4 mg IV. Patient also given potassium 40 mEq p.o. after blood work did show a slightly depressed potassium of 3.1. CBC with differential white count 4.4 with absolute neutrophil count of 1.2. Lactate normal at 1.6. LFTs unremarkable. Urinalysis unremarkable. I did send stool for C. difficile as well as enteric pathogens. Patient had no further vomiting in the department. She is now not dizzy with standing. Patient feels well. She will be discharged to home. I did discuss case with oncologist on-call Dr. Summers who will inform her oncologist regarding patient's visit. Patient advised to return if persistent vomiting, diarrhea, dehydration. At this time she has no abdominal discomfort and her abdomen is benign therefore I do not feel any imaging is indicated. I suspect her vomiting and diarrhea may be related to the chemotherapy. Lab Data Attestation: I reviewed the patient's lab results. Labs: Laboratory Results - last 24 hr 01/02/23 01/02/23 01/02/23 10:50 10:50 10:50 WBC 4.4 RBC 4.54 Hgb 13.0 Hct 39.5 MCV 87.0 MCH 28.6 MCHC 32.9 RDW Std Deviation 43.1 RDW Coeff of [place]uel 13.4 Plt Count 317 MPV 10.1 Neut % (Auto) Not Reportable Absolute Neuts (auto) 1.2 L Absolute Lymphs (auto) 2.38 Total Counted 100 Neutrophils % (Manual) 25 L Band Neutrophils % 2 Lymphocytes % (Manual) 54 H Monocytes % (Manual) 11 H Eosinophils % (Manual) 3 Metamyelocytes % 1 Myelocytes % 1 H Promyelocytes % 1 H Blast Cells % 2 H* Nucleated RBCs/100 WBC 1 Diff Path Review May foll Platelet Estimate ADEQUATE RBC Morphology NORM C+C Sodium 138 Potassium 3.1 L Chloride 101 Carbon Dioxide 31.0 Anion Gap 6 BUN 13 Creatinine 0.78 Estim Creat Clear Calc 43.07 Est GFR (MDRD) Af Amer 93 Est GFR (MDRD) Non-Af 77 BUN/Creatinine Ratio 16.8 Glucose 131 H Lactic Acid 1.6 Calcium 8.6 Total Bilirubin 1.30 H AST 18 ALT 14 Alkaline Phosphatase 79 Total Protein 7.2 Albumin 3.3 Globulin 3.9 Albumin/Globulin Ratio 0.8 L Urine Color Urine Clarity Urine pH Ur Specific [place] Urine Protein Urine Glucose (UA) Urine Ketones Urine Occult Blood Urine Nitrite Urine Bilirubin Urine Urobilinogen Ur Leukocyte Esterase Urine RBC Urine WBC Ur Squamous Epith Cells Urine Bacteria Urine Mucus 01/02/23 12:30 WBC RBC Hgb Hct MCV MCH MCHC RDW Std Deviation RDW Coeff of [place] Plt Count MPV Neut % (Auto) Absolute Neuts (auto) Absolute Lymphs (auto) Total Counted Neutrophils % (Manual) Band Neutrophils % Lymphocytes % (Manual) Monocytes % (Manual) Eosinophils % (Manual) Metamyelocytes % Myelocytes % Promyelocytes % Blast Cells % Nucleated RBCs/100 WBC Diff Path Review Platelet Estimate RBC Morphology Sodium Potassium Chloride Carbon Dioxide Anion Gap BUN Creatinine Estim Creat Clear Calc Est GFR (MDRD) Af Amer Est GFR (MDRD) Non-Af BUN/Creatinine Ratio Glucose Lactic Acid Calcium Total Bilirubin AST ALT Alkaline Phosphatase Total Protein Albumin Globulin Albumin/Globulin Ratio Urine Color Yellow Urine Clarity Clear Urine pH 5.0 Ur Specific [place] 1.015 Urine Protein 30 H Urine Glucose (UA) Normal Urine Ketones 5 H Urine Occult Blood 10 H Urine Nitrite Negative Urine Bilirubin Negative Urine Urobilinogen Normal Ur Leukocyte Esterase 25 H Urine RBC 0-5 SEEN Urine WBC 0-5 SEEN Ur Squamous Epith Cells 0 SEEN Urine Bacteria 0 SEEN Urine Mucus 0 SEEN Discharge Plan Triage Chief Complaint: Nausea/Vomiting/Diarrhea ED Provider: Seth Mosqueda Dx/Rx/DC Orders Clinical Impression: Vomiting, Diarrhea, Side effect of drug, Acute hypokalemia Instructions: Cancer Tx Control Nausea Vomiting, ED Diarrhea, Unknown Cause, ED Diet Vomiting Diarrhea, ED Hypokalemia Prescriptions: No Action aspirin 81 mg tablet,chewable 81 mg PO DAILY nitroglycerin 0.4 mg tablet, sublingual 0.4 mg SL Q5M PRN (Reason: Cardiac/Chest Pain) Qty: 25 3RF metformin 1,000 mg tablet 1,000 mg PO BID calcium carbonate [Calcium 600] 600 mg calcium (1,500 mg) tablet 600 mg PO BID isosorbide mononitrate 30 mg tablet extended release 24 hr 30 mg PO DAILY Qty: 90 4RF atorvastatin 20 mg tablet 20 mg PO QPM (DME) Breast prosthesis (left) See Rx Instructions .Route .MEDSUPPLY Qty: 1 0RF Rx Instructions: As directed (DME) Breast prosthesis (right) See Rx Instructions .Route .MEDSUPPLY Qty: 3 3RF Rx Instructions: As directed (DME) Mastectomy bra See Rx Instructions .Route .MEDSUPPLY Qty: 3 3RF Rx Instructions: As directed ondansetron 8 mg tablet,disintegrating 8 mg PO Q8H PRN (Reason: nausea and vomiting) Qty: 30 2RF lidocaine-prilocaine 2.5-2.5 % cream 1 applic topical ONCE PRN (Reason: port access) 30 Days Qty: 30 2RF dexamethasone 4 mg tablet 8 mg PO .COMPLEX Qty: 12 5RF Rx Instructions: 8 mg orally ONLY the day before, the day of, and the day after chemotherapy; omeprazole magnesium [Prilosec OTC] 20 mg tablet,delayed release (DR/EC) 20 mg PO DAILY Qty: 30 0RF ergocalciferol (vitamin D2) 1,250 mcg (50,000 unit) capsule 50,000 unit PO MOFR Label Comments: Vitamin D supplement TAKES 1 TAB 2X PER WEEK TAKES SUNDAY AND SUNDAY--supplement potassium chloride 10 MEQ tablet 20 meq PO BIDCM 0RF Trulicity 0.75 mg/0.5 mL pen injector 0.75 mg SC MO Rx Instructions: mondays hydrochlorothiazide 25 mg tablet 25 mg PO DAILY Qty: 90 4RF metoprolol tartrate 50 mg tablet 50 mg PO BID Qty: 180 3RF clopidogrel 75 mg tablet 75 mg PO DAILY Qty: 90 3RF Primary Care Provider: Jb Cast Referrals: Jessica Ochoa MD [Med Staff - Active Staff] - 1-2 Days if not improving Jb Cast MD [Primary Care Provider] - Disposition Disposition: Home, Self Care
[2023-01-02] MEDS: 0.9% Normal Saline 1,000 ML 1000 ML IV (10:57)
[2023-01-02] MEDS: Ondansetron 4 MG/2 ML Vial IV (10:57)
[2023-01-02 11:01] LABS: Hematocrit 39.5 % (37-47); Mean Corp Hgb Conc 32.9 g/dL (32-36); Mean Corpuscular Hgb 28.6 pg (27.0-32.0); Mean Platelet Vol. 10.1 fl (6.2-12.0); POSITIVE COUNT YES; POSITIVE MORPHOLOGY YES; Platelet Count 317 K/mm3 (150-450); RBC Distribution Width CV 13.4 % (11.6-14.6); RBC Distribution Width SD 43.1 fl (35.1-43.9); Red Blood Count 4.54 M/mm3 (4.2-5.4); White Blood Count 4.4 K/mm3 (4.4-11.0)
[2023-01-02 11:13] LABS: ALB/GLOB Ratio 0.8 RATIO (0.9-2.4); AST(SGOT) 18 U/L (15-37); Alanine Aminotransfer ALT/SGPT 14 U/L (13-56); Albumin, Serum 3.3 g/dL (3.2-5.0); Alkaline Phosphatase 79 U/L (45-117); Anion Gap 6 (5-15); BUN 13 mg/dL (7-18); BUN/Creat Ratio 16.8 RATIO (10-20); Calcium,Total 8.6 mg/dL (8.5-10.1); Chloride 101 mmol/L (98-107); Creatinine, Serum 0.78 mg/dL (0.55-1.02); EST Glomerular Filtration Rate 77 mL/min (>60); Est Glom Filt Rate - Afr Amer 93 mL/min (>60); Estimated Creatinine Clearance 43.07 ml/min; Globulin 3.9 g/dL (2.2-4.2); Glucose 131 mg/dL (74-106); Potassium 3.1 mmol/L (3.5-5.1); Protein, Total 7.2 g/dL (6.4-8.2); Sodium Level 138 mmol/L (136-145)
[2023-01-02 11:17] LABS: Differential Indicated MANUAL DIFF
[2023-01-02 11:24] VITALS: BP 139/66; PULSE 94; RESP 17; O2SAT 95
[2023-01-02 11:31] LABS: Blast 2 % (0-0); Eosinophil 3 % (0-5); Lymphocyte 54 % (19-41); Metamyelocyte 1 % (0-1); Monocyte 11 % (0-10); Myelocyte 1 % (0-0); Neutrophil-Band 2 % (0-5); Neutrophil-Segmented 25 % (47-70); Nucleated Red Bld Cells,Manual 1 % (0-5); Promyelocyte 1 % (0-0); Total Cells Counted 100 (MANUAL DIFF)
[2023-01-02 11:32] LABS: Absolute Lymphocyte Count 2.38 X10^3/uL (0.83-4.51); Lymphocyte # 2.38 X10^3/ul (0.83-4.51); Platelet Estimate ADEQUATE (ADEQ); Red Cell Morphology NORM C+C NORMAL (NORM C&C)
[2023-01-02 11:33] LABS: Absolute Neutrophil Count 1.2 X10^3/uL (2.0-7.7); Neutrophil # 1.19 X10^3/uL (2.7-7.7)
[2023-01-02 11:53] LABS: Lactic Acid 1.6 mmol/L (0.4-1.9)
[2023-01-02 12:47] LABS: Bacteria 0 SEEN /hpf (None Seen); Mucous, Urine 0 SEEN /hpf (<or=2+); Squamous Epithelial Cells - UA 0 SEEN /hpf (5-10)
[2023-01-02 12:56] LABS: Color, Urine Yellow (Yellow); Glucose, Dipstick Normal (Normal); Ketone-Dipstick 5 mg/dl (Negative); Leukocyte Esterase-Dipstick 25 /ul (Negative); Nitrite-Dipstick Negative (Negative); Occult Blood-Urine 10 /ul (Negative); Protein-Dipstick 30 mg/dl (Negative); Specific Gravity, Urine 1.015 (1.002-1.030); Urine Bilirubin Dipstick Negative (Negative); Urine Clarity Clear (Clear); Urine Urobilinogen Normal (Normal)
[2023-01-02 13:08] LABS: Red Blood Cells-Urine 0-5 SEEN /hpf (0-5); White Blood Cells 0-5 SEEN /hpf (0-5)
[2023-01-02] MEDS: 0.9% Normal Saline 1,000 ML 999 ML IV (13:12)
[2023-01-02] MEDS: Potassium Chloride Oral Tablet 20 MEQ 40 MEQ PO (13:12)
[2023-01-02 14:55] VITALS: BP 130/61; PULSE 74; RESP 16; O2SAT 100
[2023-01-04 13:50] LABS: Pathologist Review Reviewed
== END 2023-01-02 15:22 | disposition home or self-care (01) ==
PROVIDERS: Emergency Provider Emergency Medicine; PCP Family Medicine; Visit Provider Emergency Medicine
DX: R11.2 Nausea with vomiting, unspecified (principal); E11.9 Type 2 diabetes mellitus without complications; E87.6 Hypokalemia; R19.7 Diarrhea, unspecified; I10 Essential (primary) hypertension; E78.5 Hyperlipidemia, unspecified; I25.10 Atherosclerotic heart disease of native coronary artery without angina pectoris; Z92.21 Personal history of antineoplastic chemotherapy
CPT/HCPCS: 36591; 80053; 81001; 83605; 85025; 87493; 87506; 96361; 96374; 99284; J7030; A4216; J2405

== ENCOUNTER 2023-01-21 07:19 | Emergency (ER) | payer MEDICARE, OTHER, SELFPAY ==
[2023-01-17 10:06] VITALS: BMI 36.6
[2023-01-21 07:20] VITALS: BP 143/68; PULSE 83; RESP 14; TEMP 35.9; O2SAT 93
[2023-01-21 08:20] LABS: Hemoglobin 11.8 g/dL (12.0-15.0); Mean Corp Hgb Conc 32.8 g/dL (32-36); Mean Corpuscular Hgb 29.2 pg (27.0-32.0); Mean Corpuscular Volume 89.1 fL (81-99); Mean Platelet Vol. 9.5 fl (6.2-12.0); POSITIVE COUNT YES; POSITIVE MORPHOLOGY YES; Platelet Count 369 K/mm3 (150-450); RBC Distribution Width CV 14.8 % (11.6-14.6); RBC Distribution Width SD 47.5 fl (35.1-43.9); Red Blood Count 4.04 M/mm3 (4.2-5.4); White Blood Count 16.2 K/mm3 (4.4-11.0)
[2023-01-21 08:23] LABS: Differential Indicated MANUAL DIFF
--- NOTE | 2023-01-21 08:27 | EDS_ITS ---
HPI History of Present Illness Chief Complaint: Weakness Informant: patient Narrative Narrative: Patient is a cancer patient presenting because she feels dehydrated due to poor appetite, nausea, and taking in little fluids. She has metastatic breast cancer, her last chemotherapy treatment was 4 days ago, she has been having nausea off and on but no vomiting. She did take a nausea pill today but is still feeling nauseated. Been drinking very poorly. Has been getting IV fluid infusions 3 times per week for this, today is Sunday and so she presents here asking for more fluids. As a separate issue but also 1 that she wants addressed, she is having a sore intertriginous red rash in both of her groins that she noticed 1 or 2 days ago. No recent antibiotics. She states when she first noticed it it had some white caking on it that she brushed off. She has had no bleeding or other discharge. She denies any recent fevers or chills or other illness. [facility] Medical History (Updated 01/21/23 @ 09:[address] Uday Goode MD) Arthritis Atherosclerotic heart disease of [place] coronary artery without angina pectoris Bilateral malignant neoplasm of breast in female Bone metastases Breast cancer CAD (coronary artery disease) Cancer Candidiasis Cardiology follow-up encounter Chemotherapy induced diarrhea Chemotherapy management, encounter for CPAP (continuous positive airway pressure) dependence Dehydration Diabetes Diabetes mellitus type 2 in obese Diarrhea due to drug Dysuria Electrolyte abnormality Encounter for education Essential hypertension Fracture of hip, right, closed Genetic counseling Heel spur High cholesterol History of colon polyps History of DVT (deep vein thrombosis) History of echocardiogram History of left heart catheterization (LHC) (~02/02/21) History of stress test HLD (hyperlipidemia) Hypertension Hypokalemia Liver metastases Mass of left breast 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 Mucositis Non-smoker Nonrheumatic mitral valve regurgitation Nonrheumatic tricuspid (valve) insufficiency Osteoarthritis PORT PLACEMENT Presence of stent in coronary artery (~03/12/12) Pulmonary hypertension Recurrent breast cancer Screening for colon cancer UTI (urinary tract infection) Home Medications potassium chloride 10 mEq tablet,extended release(part/cryst) 20 meq PO BIDCM 07/29/19 [Rx Last Taken Unknown] aspirin 81 mg chewable tablet 81 mg PO DAILY 05/24/20 [History Last Taken 02/02/21] ergocalciferol (vitamin D2) 1,250 mcg (50,000 unit) capsule 50,000 unit PO MOFR supplement 05/24/20 [History Last Taken Unknown] dulaglutide 0.75 mg/0.5 mL subcutaneous pen injector (Trulicity) 0.75 mg subcut MO 02/22/21 [History Last Taken Unknown] metformin 1,000 mg tablet 1,000 mg PO BID 03/09/21 [History Last Taken Unknown] nitroglycerin 0.4 mg sublingual tablet 0.4 mg sublingual Q5M PRN Cardiac/Chest Pain #25 tabs 07/22/21 [Rx Last Taken Unknown] hydrochlorothiazide 25 mg tablet 25 mg PO DAILY #90 tabs 08/17/21 [Rx Last Taken Unknown] atorvastatin 20 mg tablet 20 mg PO QPM 10/03/21 [History Last Taken Unknown] calcium carbonate 600 mg calcium (1,500 mg) tablet (Calcium) 600 mg PO BID 01/06 [History Last Taken Unknown] isosorbide mononitrate 30 mg tablet,extended release 24 hr 30 mg PO DAILY #90 tabs 01/06/22 [Rx Last Taken 12/20/22] metoprolol tartrate 50 mg tablet 50 mg PO BID #180 tabs 10/18/22 [Rx Last Taken Unknown] Breast prosthesis (left) #1 ea 11/07/22 [Rx Last Taken Unknown] Breast prosthesis (right) #3 ea 11/07/22 [Rx Last Taken Unknown] Mastectomy bra #3 ea 11/07/22 [Rx Last Taken Unknown] clopidogrel 75 mg tablet 75 mg PO DAILY #90 tabs 11/13/22 [Rx Last Taken 12/16/22] dexamethasone 4 mg tablet 8 mg PO .COMPLEX #12 tabs 12/18/22 [Rx Last Taken Unknown] lidocaine-prilocaine 2.5 %-2.5 % topical cream 1 applic topical ONCE PRN port access 30 days #30 grams 12/18/22 [Rx Last Taken Unknown] omeprazole magnesium 20 mg tablet,delayed release (Prilosec OTC) 20 mg PO DAILY #30 tabs 12/18/22 [Rx Last Taken Unknown] ondansetron 8 mg disintegrating tablet 8 mg PO Q8H PRN nausea and vomiting #30 tabs 12/18/22 [Rx Last Taken Unknown] nystatin 100,000 unit/gram topical cream 1 applic topical TID PRN Rash #30 grams 01/21/23 [Rx Last Taken Unknown] Allergy/AdvReac Type Severity Reaction Status Date / Time iodine Allergy Severe Rash Verified 01/21/23 07:20 povidone-iodine AdvReac Severe Itching Verified 01/21/23 07:20 [From Betadine] pravastatin sodium AdvReac Severe LEG CRAMPS Verified 01/21/23 07:20 [From Pravachol] rosuvastatin calcium AdvReac Severe LEG CRAMPS Verified 01/21/23 07:20 [From Crestor] simvastatin AdvReac Severe LEG CRAMPS Verified 01/21/23 07:20 soap [From Betadine] AdvReac Severe Itching Verified 01/21/23 07:20 ramipril AdvReac Intermediate coughing Verified 01/21/23 07:20 Family History Sister Pancreatic cancer Diabetes Heart disease Leukemia Breast cancer Hypertension Brother Diabetes Bone cancer Heart disease Hypertension CVA (cerebral vascular accident) Father No problems noted. Surgical History History of bilateral mastectomy History of cardiac catheterization History of carpal tunnel surgery History of cholecystectomy History of colonoscopy History of coronary artery bypass graft x 3 (~02/09/21) History of knee joint replacement History of right breast biopsy History of surgery Hx of colonoscopy Postsurgical percutaneous transluminal coronary angioplasty (PTCA) status Presence of coronary angioplasty implant and graft (~03/12/12) S/P coronary artery bypass graft x 3 (~02/09/21) Social History Smoking Status: Never smoker alcohol intake: never substance use type: does not use caffeine: Yes Type: tea Number of servings: 1 ROS ROS ED Constitutional Constitutional ED: Reports malaise; Denies chills or fever(s) Eyes Eyes: Denies change in vision or diplopia ENT ENT ED: Denies rhinorrhea or sore throat Cardiovascular Cardiovascular: Denies chest pain or palpitations Respiratory/Chest Respiratory/Chest: Denies cough or dyspnea Gastrointestinal Gastrointestinal: Reports diarrhea, nausea and other Details: Diarrhea has been mild, loose, nonbloody nonmelanotic ; Denies abdominal pain or vomiting Genitourinary Genitourinary ED: Denies dysuria or hematuria Musculoskeletal Musculoskeletal: Denies back pain or neck pain Integumentary Reports rash; Denies abscess Neurologic Neurologic: Denies headache(s), paresthesias or weakness Psychiatric Psychiatric: Denies anxiety or suicidal thoughts EXAM Physical Exam Const Vital Signs: 01/21/23 07:20 01/21/23 09:03 01/21/23 09:03 Temperature 96.7 F L 98.8 F 98.8 F Temperature Source Temporal Oral Oral Pulse Rate 83 87 87 Respiratory Rate 14 16 16 Blood Pressure 143/68 H 111/58 L 111/58 L Blood Pressure Mean 93 75 75 Pulse Ox 93 98 98 Oxygen Delivery Method Room Air Room Air Room Air Positive well nourished, well developed and obese General Appearance ED: well developed and NAD Nutritional Appearance: obese HEENT Reports dry mucous membranes normocephalic and atraumatic Mouth ED: Yes dry mucous membranes Mouth: dry mucous membranes Eyes PERRL and EOMs intact bilaterally Neck full ROM and supple Resp normal respiratory effort and clear to auscultation bilaterally Cardio regular rate, regular rhythm and no murmurs Rate: Negative for tachycardic GI non-tender and non-distended Auscultation: normoactive bowel sounds Palpation: soft Back/Spine no CVA tenderness General Back: other FROM Extremity normal to inspection General Extremety ED: Negative for edema, pulses abnormal or tenderness General Extremity: Negative for edema or pulses abnormal Neuro oriented x3, CN's II-XII intact bilaterally and no sensory deficits noted Sensorium / Orientation: awake and alert Motor Exam: strength 5/5 throughout Psych mental status grossly normal Skin no wounds Skin Narrative: Bilateral inguinal intertriginous mildly tender erythematous rash with a few satellite lesions, no petechiae, bullae, papules or pustules MDM MDM MDM Narrative Medical decision making narrative: Patient was given IV fluids and Zofran while we checked some labs. She is a little prerenal and her potassium is low. We will give her oral and IV replacement prior to discharge. On reevaluation she was doing better after the fluids and Zofran. I suspect her rash is most likely Esther based on its appearance, I am happy to prescribe her an antifungal and she can follow-up after the weekend for that as well and she is comfortable with that plan. Lab Data Attestation: I reviewed the patient's lab results. Labs: Laboratory Results - last 24 hr 01/21/23 01/21/23 08:10 08:10 WBC 16.2 H RBC 4.04 L Hgb 11.8 L Hct 36.0 L MCV 89.1 MCH 29.2 MCHC 32.8 RDW Std Deviation 47.5 H RDW Coeff of Ruel 14.8 H Plt Count 369 MPV 9.5 Neut % (Auto) Not Reportable Absolute Neuts (auto) 15.2 H Absolute Lymphs (auto) 0.32 L Total Counted 100 Neutrophils % (Manual) 93 H Band Neutrophils % 1 Lymphocytes % (Manual) 2 L Metamyelocytes % 4 H Diff Path Review May foll Platelet Estimate ADEQUATE RBC Morphology NORM C+C Sodium 142 Potassium 3.2 L Chloride 104 Carbon Dioxide 34.0 H Anion Gap 4 L BUN 12 Creatinine 0.50 L Est GFR (MDRD) Af Amer 155 Est GFR (MDRD) Non-Af 128 BUN/Creatinine Ratio 24.0 H Glucose 124 H Calcium 7.4 L Discharge Plan Triage Chief Complaint: Weakness ED Provider: Uday Goode Dx/Rx/DC Orders Clinical Impression: Mild dehydration, Hypokalemia, Intertriginous candidiasis Instructions: ED Esther Skin Infection (Adult), ED Hypokalemia Prescriptions: Continued aspirin 81 mg tablet,chewable 81 mg PO DAILY nitroglycerin 0.4 mg tablet, sublingual 0.4 mg SL Q5M PRN (Reason: Cardiac/Chest Pain) Qty: 25 3RF metformin 1,000 mg tablet 1,000 mg PO BID calcium carbonate [Calcium 600] 600 mg calcium (1,500 mg) tablet 600 mg PO BID isosorbide mononitrate 30 mg tablet extended release 24 hr 30 mg PO DAILY Qty: 90 4RF atorvastatin 20 mg tablet 20 mg PO QPM ondansetron 8 mg tablet,disintegrating 8 mg PO Q8H PRN (Reason: nausea and vomiting) Qty: 30 2RF lidocaine-prilocaine 2.5-2.5 % cream 1 applic topical ONCE PRN (Reason: port access) 30 Days Qty: 30 2RF dexamethasone 4 mg tablet 8 mg PO .COMPLEX Qty: 12 5RF Rx Instructions: 8 mg orally ONLY the day before, the day of, and the day after chemotherapy; omeprazole magnesium [Prilosec OTC] 20 mg tablet,delayed release (DR/EC) 20 mg PO DAILY Qty: 30 0RF ergocalciferol (vitamin D2) 1,250 mcg (50,000 unit) capsule 50,000 unit PO MOFR Label Comments: Vitamin D supplement TAKES 1 TAB 2X PER WEEK TAKES SUNDAY AND SUNDAY--supplement potassium chloride 10 MEQ tablet 20 meq PO BIDCM 0RF Trulicity 0.75 mg/0.5 mL pen injector 0.75 mg SC MO Rx Instructions: mondays hydrochlorothiazide 25 mg tablet 25 mg PO DAILY Qty: 90 4RF metoprolol tartrate 50 mg tablet 50 mg PO BID Qty: 180 3RF clopidogrel 75 mg tablet 75 mg PO DAILY Qty: 90 3RF Changed nystatin 100,000 unit/gram cream 1 applic topical TID PRN (Reason: Rash) Qty: 30 0RF No Action (DME) Breast prosthesis (left) See Rx Instructions .Route .MEDSUPPLY Qty: 1 0RF Rx Instructions: As directed (DME) Breast prosthesis (right) See Rx Instructions .Route .MEDSUPPLY Qty: 3 3RF Rx Instructions: As directed (DME) Mastectomy bra See Rx Instructions .Route .MEDSUPPLY Qty: 3 3RF Rx Instructions: As directed Primary Care Provider: Jb Cast Referrals: Jb Cast MD [Primary Care Provider] - (And/or your oncologist this coming week) Disposition Disposition: Home, Self Care
[2023-01-21 08:39] LABS: Anion Gap 4 (5-15); BUN 12 mg/dL (7-18); Calcium,Total 7.4 mg/dL (8.5-10.1); Chloride 104 mmol/L (98-107); EST Glomerular Filtration Rate 128 mL/min (>60); Est Glom Filt Rate - Afr Amer 155 mL/min (>60); Glucose 124 mg/dL (74-106); Potassium 3.2 mmol/L (3.5-5.1); Sodium Level 142 mmol/L (136-145)
[2023-01-21] MEDS: 0.9% Normal Saline 1,000 ML 999 ML IV (08:42)
[2023-01-21] MEDS: Ondansetron 4 MG/2 ML Vial IV (08:43)
[2023-01-21 08:50] LABS: Lymphocyte 2 % (19-41); Metamyelocyte 4 % (0-1); Neutrophil-Band 1 % (0-5); Neutrophil-Segmented 93 % (47-70); Platelet Estimate ADEQUATE (ADEQ); Red Cell Morphology NORM C+C NORMAL (NORM C&C); Total Cells Counted 100 (MANUAL DIFF)
[2023-01-21 08:51] LABS: Absolute Neutrophil Count 15.2 X10^3/uL (2.0-7.7)
[2023-01-21 08:52] LABS: Absolute Lymphocyte Count 0.32 X10^3/uL (0.83-4.51)
[2023-01-21 09:03] VITALS: BP 111/58; PULSE 87; RESP 16; TEMP 37.1; O2SAT 98; BMI 35.8
[2023-01-21] MEDS: Potassium Chloride 10mEq/100mL 10 MEQ/100 ML IV.SOLN. 100 MEQ IV BOLUS (09:41)
[2023-01-21] MEDS: Potassium Chloride Oral Tablet 20 MEQ 40 MEQ PO (09:41)
[2023-01-21 10:52] VITALS: BP 113/59; PULSE 81; RESP 14; TEMP 36.9; O2SAT 93
[2023-01-21 11:37] VITALS: BP 129/61; PULSE 93; RESP 16; O2SAT 98
[2023-01-21 11:40] VITALS: BP 129/61; PULSE 93; RESP 16; O2SAT 98
[2023-01-22 14:26] LABS: Pathologist Review Reviewed
== END 2023-01-21 11:41 | disposition home or self-care (01) ==
PROVIDERS: Emergency Provider Emergency Medicine; PCP Family Medicine; Visit Provider Emergency Medicine
DX: E86.0 Dehydration (principal); C50.919 Malignant neoplasm of unspecified site of unspecified female breast; E11.9 Type 2 diabetes mellitus without complications; E87.6 Hypokalemia; I25.10 Atherosclerotic heart disease of native coronary artery without angina pectoris; E78.00 Pure hypercholesterolemia, unspecified; R11.0 Nausea; I10 Essential (primary) hypertension; B37.2 Candidiasis of skin and nail; R19.7 Diarrhea, unspecified
CPT/HCPCS: 96361; 96365; 96375; 99283; 36591; 80048; 85025; J7030; A4216; J2405

== ENCOUNTER 2023-01-22 15:39 | Inpatient (IN) | payer MEDICARE, OTHER, SELFPAY ==
[2023-01-17 10:06] VITALS: BMI 36.6
[2023-01-22] VITALS (7 sets, daily range): BP systolic 116–134; BP diastolic 54–69; PULSE 100–110; RESP 18; TEMP 36.9–38.2; O2SAT 91–94; BMI 35.4; BMI 34.2
--- NOTE | 2023-01-22 15:58 | EX.ED.DYSGE1 ---
HPI History of Present Illness Chief Complaint: Nausea/Vomiting/Diarrhea Detail of Chief Complaint: Nausea, vomiting and diarrhea due to chemotherapy. Informant: patient, family and other (Nurse practitioner Caprice Beauchamp) Onset/Context/Timing Onset: Yesterday Context: Sudden Onset Timing: Continuous Quality: Nausea, vomiting diarrhea Location: GI Current Severity: Severe Maximum Severity: Severe Worsened by: Chemotherapy Relieved by: Nothing Associated Symptoms Associated Symptoms: Thirst, dry mouth, weakness, lightheadedness Narrative Narrative: Patient is a 77-year-old female with recurrent breast cancer diagnosed December 2017. She was noted to have invasive ductal carcinoma ER positive and H ER?2 positive. Patient was seen on Sunday at the infusion center and receive IV fluids. She was seen today at the infusion center. Blood work was obtained. White count is 2.6. She is day 10 from last cycle of chemo. H&H is elevated from baseline to to 13.4 and 40.4. Platelet count was normal. Differential is unremarkable. BUN and creatinine are 9 and 0.9 with an estimated GFR of 94. Glucose was slightly elevated 155. Calcium is 7.2, which is low. Magnesium is low at 1.5 with the lower limit of normal being 1.6. Patient had a colonoscopy for cancer screening by Dr. Mar that was unremarkable. Patient states she had 4-5 large emesis since last night. She filled the sink with each emesis. She did not know blood or coffee-ground material. She has had profuse diarrhea with mucus and no blood. Patient reports being weak and lightheaded. Patient denies fever, chills night sweats. Patient denies cough or shortness of breath. Patient denies urologic symptoms. Patient is amenable to palliative care. Confirmed that she was given option for different chemotherapy which would be less GI toxic and more tolerable. She and family confirmed that she was given that option and would like to pursue that option. Prior similar symptoms: Yes Recent Illness/Hospitalization: No PFSH PFSH Medical History Arthritis Atherosclerotic heart disease of [place] coronary artery without angina pectoris Bilateral malignant neoplasm of breast in female Bone metastases Breast cancer CAD (coronary artery disease) Cancer Candidiasis Cardiology follow-up encounter Chemotherapy induced diarrhea Chemotherapy management, encounter for CPAP (continuous positive airway pressure) dependence Dehydration Diabetes Diabetes mellitus type 2 in obese Diarrhea due to drug Dysuria Electrolyte abnormality Encounter for education Essential hypertension Fracture of hip, right, closed Genetic counseling Heel spur High cholesterol History of colon polyps History of DVT (deep vein thrombosis) History of echocardiogram History of left heart catheterization (LHC) (~02/02/21) History of stress test HLD (hyperlipidemia) Hypertension Hypokalemia Liver metastases Mass of left breast 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 Mucositis Non-smoker Nonrheumatic mitral valve regurgitation Nonrheumatic tricuspid (valve) insufficiency Osteoarthritis PORT PLACEMENT Presence of stent in coronary artery (~03/12/12) Pulmonary hypertension Recurrent breast cancer Screening for colon cancer UTI (urinary tract infection) Home Medications potassium chloride 10 mEq tablet,extended release(part/cryst) 20 meq PO BIDCM 07/29/19 [Rx Last Taken 01/21/23] aspirin 81 mg chewable tablet 81 mg PO DAILY 05/24/20 [History Last Taken 1 Week Ago ~01/15/23] ergocalciferol (vitamin D2) 1,250 mcg (50,000 unit) capsule 50,000 unit PO MOFR supplement 05/24/20 [History Last Taken 1 Week Ago ~01/15/23] dulaglutide 0.75 mg/0.5 mL subcutaneous pen injector (Trulicity) 0.75 mg subcut MO 02/22/21 [History Last Taken 01/15/23] metformin 1,000 mg tablet 1,000 mg PO BID 03/09/21 [History Last Taken 1 Week Ago ~01/15/23] nitroglycerin 0.4 mg sublingual tablet 0.4 mg sublingual Q5M PRN Cardiac/Chest Pain #25 tabs 07/22/21 [Rx Last Taken Unknown] hydrochlorothiazide 25 mg tablet 25 mg PO DAILY #90 tabs 08/17/21 [Rx Last Taken 1 Week Ago ~01/15/23] atorvastatin 20 mg tablet 20 mg PO QPM 10/03/21 [History Last Taken 1 Week Ago ~01/15/23] calcium carbonate 600 mg calcium (1,500 mg) tablet (Calcium) 600 mg PO BID 01/06/22 [History Last Taken 1 Week Ago ~01/15/23] isosorbide mononitrate 30 mg tablet,extended release 24 hr 30 mg PO DAILY #90 tabs 01/06/22 [Rx Last Taken 1 Week Ago ~01/15/23] metoprolol tartrate 50 mg tablet 50 mg PO BID #180 tabs 10/18/22 [Rx Last Taken 1 Week Ago ~01/15/23] Breast prosthesis (left) #1 ea 11/07/22 [Rx Last Taken Unknown] Breast prosthesis (right) #3 ea 11/07/22 [Rx Last Taken Unknown] Mastectomy bra #3 ea 11/07/22 [Rx Last Taken Unknown] clopidogrel 75 mg tablet 75 mg PO DAILY #90 tabs 11/13/22 [Rx Last Taken 1 Week Ago ~01/15/23] dexamethasone 4 mg tablet 8 mg PO .COMPLEX #12 tabs 12/18/22 [Rx Last Taken 01/18/23] lidocaine-prilocaine 2.5 %-2.5 % topical cream 1 applic topical ONCE PRN port access 30 days #30 grams 12/18/22 [Rx Last Taken 01/22/23] omeprazole magnesium 20 mg tablet,delayed release (Prilosec OTC) 20 mg PO DAILY #30 tabs 12/18/22 [Rx Last Taken 01/18/23] ondansetron 8 mg disintegrating tablet 8 mg PO Q8H PRN nausea and vomiting #30 tabs 12/18/22 [Rx Last Taken 01/21/23] nystatin 100,000 unit/gram topical cream 1 applic topical TID PRN Rash #30 grams 01/21/23 [Rx Last Taken 01/22/23] Allergy/AdvReac Type Severity Reaction Status Date / Time iodine Allergy Severe Rash Verified 01/22/23 15:40 povidone-iodine AdvReac Severe Itching Verified 01/22/23 15:40 [From Betadine] pravastatin sodium AdvReac Severe LEG CRAMPS Verified 01/22/23 15:40 [From Pravachol] rosuvastatin calcium AdvReac Severe LEG CRAMPS Verified 01/22/23 15:40 [From Crestor] simvastatin AdvReac Severe LEG CRAMPS Verified 01/22/23 15:40 soap [From Betadine] AdvReac Severe Itching Verified 01/22/23 15:40 ramipril AdvReac Intermediate coughing Verified 01/22/23 15:40 Family History Sister Pancreatic cancer Diabetes Heart disease Leukemia Breast cancer Hypertension Brother Diabetes Bone cancer Heart disease Hypertension CVA (cerebral vascular accident) Father No problems noted. Surgical History History of bilateral mastectomy History of cardiac catheterization History of carpal tunnel surgery History of cholecystectomy History of colonoscopy History of coronary artery bypass graft x 3 (~02/09/21) History of knee joint replacement History of right breast biopsy History of surgery Hx of colonoscopy Postsurgical percutaneous transluminal coronary angioplasty (PTCA) status Presence of coronary angioplasty implant and graft (~03/12/12) S/P coronary artery bypass graft x 3 (~02/09/21) Social History Smoking Status: Never smoker alcohol intake: never substance use type: does not use caffeine: Yes Type: tea Number of servings: 1 ROS ROS ED Constitutional Constitutional ED: Reports weight loss; Denies chills, fever(s), subjective or sweats Eyes Eyes: Denies blurry vision, change in vision or diplopia ENT ENT ED: Denies ear pain, rhinorrhea or sore throat Cardiovascular Cardiovascular: Reports palpitations and racing heartbeat; Denies chest pain, orthopnea or paroxysmal nocturnal dyspnea Respiratory/Chest Respiratory/Chest: Denies cough, dyspnea, dyspnea on exertion, orthopnea or paroxysmal nocturnal dyspnea Gastrointestinal Gastrointestinal: Reports abdominal pain, diarrhea, nausea and vomiting; Denies constipation or melena Genitourinary Genitourinary ED: Denies dysuria, hematuria or urinary frequency Musculoskeletal Musculoskeletal: Denies arthralgias, back pain, myalgias or neck pain Neurologic Neurologic: Reports weakness; Denies headache(s) or paresthesias Psychiatric Psychiatric: Denies anxiety or depression Endocrine Endocrinology: Denies cold intolerance or heat intolerance Hematologic/Lymphatic Hematologic/Lymphatic: Denies anemia, easy bleeding or easy bruising EXAM Physical Exam Const Vital Signs: 01/22/23 15:40 01/22/23 16:15 Temperature 98.5 F Temperature Source Oral Pulse Rate 110 H Respiratory Rate 18 Blood Pressure 127/68 H Blood Pressure [Lying] 125/69 H Blood Pressure Mean 87 Blood Pressure Mean [Lying] 87 Pulse Ox 93 Oxygen Delivery Method Room Air Positive well nourished, well developed and obese Constitutional Narrative: Patient appears pale and not well. General Appearance ED: well developed; Negative for cyanotic, diaphoretic or pallor Nutritional Appearance: obese HEENT Reports dry mucous membranes HEENT Narrative: Head is atraumatic normocephalic. Ears normal. Nares patent. Posterior pharynx is normal. Mouth ED: Yes dry mucous membranes Mouth: dry mucous membranes Eyes PERRL and EOMs intact bilaterally General Eye ED: Negative for pale conjunctiva or scleral icterus Neck supple and no JVD Neck Narrative: Trachea is midline. Chest Wall Negative for inspection of chest normal or palpation of chest normal Resp normal respiratory effort and clear to auscultation bilaterally Cardio regular rhythm, S1 normal heart sound, S2 normal heart sound and no murmurs GI normal to inspection, nondistended, normoactive bowel sounds, non-tender and non-distended; Negative for hepatosplenomegaly Auscultation: hypoactive bowel sounds Palpation: soft Extremity normal to inspection General Extremety ED: Negative for tenderness Neuro oriented x3, CN's II-XII intact bilaterally and no sensory deficits noted Neuro Narrative: Patient is awake but not alert she answers questions appropriately. Sensorium / Orientation: Negative for alert Psych Psych Narrative: Affect is flat. Skin no rashes or lesions noted, no wounds and No skin turgor normal General Skin Exam: Negative for elasticity normal, jaundice or pallor MDM MDM MDM Narrative Medical decision making narrative: Blood work was not repeated since this was performed 1 to 2 hours prior to presentation. Clinically she appears dehydrated and tachycardic. 1 L of normal saline was ordered followed by a 250 cc/h infusion. Liver profile was obtained to assess total protein and albumin since she has hypocalcemia. Patient's white count is expected be normal. She did get Neulasta per Caprice. Patient's absolute neutrophil count is greater than the thousand. Lab Data Attestation: I reviewed the patient's lab results. Lab results narrative: Total bili is slightly elevated 1.1 with a direct of 0.34. Albumin is low at 2.7. Calcium is 8.0 mg/dL once corrected for albumin of 2.7. Labs: Laboratory Results - last 24 hr 01/22/23 16:04 Total Bilirubin 1.10 H Direct Bilirubin 0.34 H AST 12 L ALT 18 Alkaline Phosphatase 89 Total Protein 5.7 L Albumin 2.7 L Globulin 3.0 Rhythm Strip Rhythm Strip: Sinus Tach Rate: 108 Ectopy: None Discharge Plan Triage Chief Complaint: Nausea/Vomiting/Diarrhea ED Provider: Devonte Priest Dx/Rx/DC Orders Clinical Impression: Abdominal pain, vomiting, and diarrhea, Atherosclerotic heart disease of [place] coronary artery without angina pectoris, Essential hypertension, Recurrent breast cancer, Liver metastases, Bone metastases, Neutropenia due to and not concurrent with chemotherapy, Hypocalcemia Prescriptions: No Action aspirin 81 mg tablet,chewable 81 mg PO DAILY nitroglycerin 0.4 mg tablet, sublingual 0.4 mg SL Q5M PRN (Reason: Cardiac/Chest Pain) Qty: 25 3RF metformin 1,000 mg tablet 1,000 mg PO BID calcium carbonate [Calcium 600] 600 mg calcium (1,500 mg) tablet 600 mg PO BID isosorbide mononitrate 30 mg tablet extended release 24 hr 30 mg PO DAILY Qty: 90 4RF atorvastatin 20 mg tablet 20 mg PO QPM (DME) Breast prosthesis (left) See Rx Instructions .Route .MEDSUPPLY Qty: 1 0RF Rx Instructions: As directed (DME) Breast prosthesis (right) See Rx Instructions .Route .MEDSUPPLY Qty: 3 3RF Rx Instructions: As directed (DME) Mastectomy bra See Rx Instructions .Route .MEDSUPPLY Qty: 3 3RF Rx Instructions: As directed ondansetron 8 mg tablet,disintegrating 8 mg PO Q8H PRN (Reason: nausea and vomiting) Qty: 30 2RF lidocaine-prilocaine 2.5-2.5 % cream 1 applic topical ONCE PRN (Reason: port access) 30 Days Qty: 30 2RF dexamethasone 4 mg tablet 8 mg PO .COMPLEX Qty: 12 5RF Rx Instructions: 8 mg orally ONLY the day before, the day of, and the day after chemotherapy; omeprazole magnesium [Prilosec OTC] 20 mg tablet,delayed release (DR/EC) 20 mg PO DAILY Qty: 30 0RF ergocalciferol (vitamin D2) 1,250 mcg (50,000 unit) capsule 50,000 unit PO MOFR Label Comments: Vitamin D supplement TAKES 1 TAB 2X PER WEEK TAKES SUNDAY AND SUNDAY--supplement potassium chloride 10 MEQ tablet 20 meq PO BIDCM 0RF nystatin 100,000 unit/gram cream 1 applic topical TID PRN (Reason: Rash) Qty: 30 0RF Trulicity 0.75 mg/0.5 mL pen injector 0.75 mg SC MO Rx Instructions: mondays hydrochlorothiazide 25 mg tablet 25 mg PO DAILY Qty: 90 4RF metoprolol tartrate 50 mg tablet 50 mg PO BID Qty: 180 3RF clopidogrel 75 mg tablet 75 mg PO DAILY Qty: 90 3RF Primary Care Provider: Jb Cast Referrals: Jb Cast MD [Primary Care Provider] - Disposition Disposition: Acute Care Hospital [facility]
[2023-01-22] MEDS: 0.9% Normal Saline 1,000 ML 1000 ML IV (16:10)
[2023-01-22 16:31] LABS: AST(SGOT) 12 U/L (15-37); Alanine Aminotransfer ALT/SGPT 18 U/L (13-56); Albumin, Serum 2.7 g/dL (3.2-5.0); Alkaline Phosphatase 89 U/L (45-117); Bilirubin, Direct 0.34 mg/dL (0.00-0.30); Protein, Total 5.7 g/dL (6.4-8.2)
[2023-01-22] MEDS: 0.9% Normal Saline 1,000 ML 250 ML IV (17:28)
--- NOTE | 2023-01-22 18:50 | CT_ITS ---
EXAM: CT ABDOMEN AND PELVIS WITHOUT INTRAVENOUS CONTRAST CLINICAL INDICATION: abdominal pain, N/V/D TECHNIQUE: Helically acquired images were obtained of the abdomen and pelvis without intravenous contrast. This CT exam was performed using one or more of the following dose reduction techniques: automated exposure control, adjustment of the mA and/or kV according to patient size, and/or use of iterative reconstruction technique. This report was created using [employer] report generation technology. COMPARISON: PET/CT scan dated 12/06/2022. FINDINGS: LOWER THORAX: Unremarkable. Lung bases are clear. No cardiomegaly. No significant pericardial effusion. ABDOMEN: LIVER: Unremarkable. Homogeneous. GALLBLADDER AND BILE DUCTS: Unremarkable. No calcified gallstones. No gallbladder distention or wall edema. No intra- or extrahepatic biliary ductal dilation. PANCREAS: Unremarkable. No focal cystic mass. SPLEEN: Unremarkable. Normal size without focal cystic or solid mass. ADRENALS: There is a left adrenal mass that measures 2.5 x 2.8 cm which is stable. KIDNEYS AND URETERS: There is a small low-density mass in the left kidney compatible no follow-up imaging is necessary. No hydronephrosis. STOMACH AND BOWEL: There are fluid-filled loops of large and small bowel. No stomach or bowel distention. No focal inflammatory change. PELVIS: APPENDIX: No evidence of acute appendicitis. BLADDER: Unremarkable. REPRODUCTIVE: Unremarkable as visualized. No mass. ABDOMEN and PELVIS: INTRAPERITONEAL SPACE: Unremarkable. No ascites or other fluid collection. No free air. BONES/JOINTS: Unremarkable. No suspicious lytic or blastic abnormality. SOFT TISSUES: Unremarkable. No discrete abdominal or pelvic wall hernia. VASCULATURE: Unremarkable. Abdominal aorta is non-dilated. LYMPH NODES: Unremarkable. No enlarged lymph nodes. CT/Abdomen/Pelvis without Cont IMPRESSION: 1. Fluid-filled loops of large and small bow which may represent enteritis with incipient diarrhea. No other acute abnormalities are identified. 2. Stable left adrenal mass. Electronically Signed: Josue Yang MD at 19:52 EST ,
--- NOTE | 2023-01-22 18:51 | HP.PCM.HOS_ITS ---
HPI - General General Date of Admission: 01/22/23 Date of Service: 01/22/23 Chief Complaint: Nausea, vomiting and diarrhea HPI Narrative GABBY TOWNSEND, is a 77 F who presents presents with ongoing nausea, vomiting and diarrhea. This is been cyclical over the past several weeks. Though this bout appears to be worse than previous. Patient is unable to keep anything down and has been having nausea vomiting and diarrhea. She has also gotten weak during this time. Patient presented to the emergency room where her work-up was unremarkable. Patient did receive IV fluids in the emergency room. [facility] Medical History Arthritis Atherosclerotic heart disease of [place] coronary artery without angina pectoris Bilateral malignant neoplasm of breast in female Bone metastases Breast cancer CAD (coronary artery disease) Cancer Candidiasis Cardiology follow-up encounter Chemotherapy induced diarrhea Chemotherapy management, encounter for CPAP (continuous positive airway pressure) dependence Dehydration Diabetes Diabetes mellitus type 2 in obese Diarrhea due to drug Dysuria Electrolyte abnormality Encounter for education Essential hypertension Fracture of hip, right, closed Genetic counseling Heel spur High cholesterol History of colon polyps History of DVT (deep vein thrombosis) History of echocardiogram History of left heart catheterization (LHC) (~02/02/21) History of stress test HLD (hyperlipidemia) Hypertension Hypokalemia Liver metastases Mass of left breast 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 Mucositis Non-smoker Nonrheumatic mitral valve regurgitation Nonrheumatic tricuspid (valve) insufficiency Osteoarthritis PORT PLACEMENT Presence of stent in coronary artery (~03/12/12) Pulmonary hypertension Recurrent breast cancer Screening for colon cancer UTI (urinary tract infection) Home Medications potassium chloride 10 mEq tablet,extended release(part/cryst) 20 meq PO BIDCM 07/29/19 [Rx Last Taken 01/21/23] aspirin 81 mg chewable tablet 81 mg PO DAILY 05/24/20 [History Last Taken 1 Week Ago ~01/15/23] ergocalciferol (vitamin D2) 1,250 mcg (50,000 unit) capsule 50,000 unit PO MOFR supplement 05/24/20 [History Last Taken 1 Week Ago ~01/15/23] dulaglutide 0.75 mg/0.5 mL subcutaneous pen injector (Trulicity) 0.75 mg subcut MO 02/22/21 [History Last Taken 01/15/23] metformin 1,000 mg tablet 1,000 mg PO BID 03/09/21 [History Last Taken 1 Week Ago ~01/15/23] nitroglycerin 0.4 mg sublingual tablet 0.4 mg sublingual Q5M PRN Cardiac/Chest Pain #25 tabs 07/22/21 [Rx Last Taken Unknown] hydrochlorothiazide 25 mg tablet 25 mg PO DAILY #90 tabs 08/17/21 [Rx Last Taken 1 Week Ago ~01/15/23] atorvastatin 20 mg tablet 20 mg PO QPM 10/03/21 [History Last Taken 1 Week Ago ~01/15/23] calcium carbonate 600 mg calcium (1,500 mg) tablet (Calcium) 600 mg PO BID 01/06/22 [History Last Taken 1 Week Ago ~01/15/23] isosorbide mononitrate 30 mg tablet,extended release 24 hr 30 mg PO DAILY #90 tabs 01/06/22 [Rx Last Taken 1 Week Ago ~01/15/23] metoprolol tartrate 50 mg tablet 50 mg PO BID #180 tabs 10/18/22 [Rx Last Taken 1 Week Ago ~01/15/23] Breast prosthesis (left) #1 ea 11/07/22 [Rx Last Taken Unknown] Breast prosthesis (right) #3 ea 11/07/22 [Rx Last Taken Unknown] Mastectomy bra #3 ea 11/07/22 [Rx Last Taken Unknown] clopidogrel 75 mg tablet 75 mg PO DAILY #90 tabs 11/13/22 [Rx Last Taken 1 Week Ago ~01/15/23] dexamethasone 4 mg tablet 8 mg PO .COMPLEX #12 tabs 12/18/22 [Rx Last Taken 01/18/23] lidocaine-prilocaine 2.5 %-2.5 % topical cream 1 applic topical ONCE PRN port access 30 days #30 grams 12/18/22 [Rx Last Taken 01/22/23] omeprazole magnesium 20 mg tablet,delayed release (Prilosec OTC) 20 mg PO DAILY #30 tabs 12/18/22 [Rx Last Taken 01/18/23] ondansetron 8 mg disintegrating tablet 8 mg PO Q8H PRN nausea and vomiting #30 tabs 12/18/22 [Rx Last Taken 01/21/23] nystatin 100,000 unit/gram topical cream 1 applic topical TID PRN Rash #30 grams 01/21/23 [Rx Last Taken 01/22/23] Allergy/AdvReac Type Severity Reaction Status Date / Time iodine Allergy Severe Rash Verified 01/22/23 15:40 povidone-iodine AdvReac Severe Itching Verified 01/22/23 15:40 [From Betadine] pravastatin sodium AdvReac Severe LEG CRAMPS Verified 01/22/23 15:40 [From Pravachol] rosuvastatin calcium AdvReac Severe LEG CRAMPS Verified 01/22/23 15:40 [From Crestor] simvastatin AdvReac Severe LEG CRAMPS Verified 01/22/23 15:40 soap [From Betadine] AdvReac Severe Itching Verified 01/22/23 15:40 ramipril AdvReac Intermediate coughing Verified 01/22/23 15:40 Family History Sister Pancreatic cancer Diabetes Heart disease Leukemia Breast cancer Hypertension Brother Diabetes Bone cancer Heart disease Hypertension CVA (cerebral vascular accident) Father No problems noted. Surgical History History of bilateral mastectomy History of cardiac catheterization History of carpal tunnel surgery History of cholecystectomy History of colonoscopy History of coronary artery bypass graft x 3 (~02/09/21) History of knee joint replacement History of right breast biopsy History of surgery Hx of colonoscopy Postsurgical percutaneous transluminal coronary angioplasty (PTCA) status Presence of coronary angioplasty implant and graft (~03/12/12) S/P coronary artery bypass graft x 3 (~02/09/21) Social History Smoking Status: Never smoker alcohol intake: never substance use type: does not use caffeine: Yes Type: tea Number of servings: 1 ROS ROS Narrative Does complain of abdominal bloating. But denies abdominal tenderness. All review of systems were negative except as mentioned above in the history of present illness and the other review of systems. Vital Signs Vital Signs Vital Signs: 01/22/23 15:40 01/22/23 16:15 Temperature 36.9 C Temperature Source Oral Pulse Rate 110 H Respiratory Rate 18 Blood Pressure 127/68 H Blood Pressure [Lying] 125/69 H Blood Pressure Mean 87 Blood Pressure Mean [Lying] 87 Pulse Ox 93 Oxygen Delivery Method Room Air Weight Weight: 96.6 kg Body Mass Index (BMI) 35.4 Physical Exam Narrative - Physical Exam General: Alert, Oriented x3, Cooperative HEENT: Atraumatic, PERRLA, EOMI, Normocephalic Oral: Moist Mucosa, No Gingival or Mucosal Lesions/ Ulcerations Neck: Supple, No JVD, Negative Carotid Bruits Lungs: Clear to auscultation, Normal air movement Cardiovascular: Regular rate, Normal S1, Normal S2, No murmurs Abdomen: Bowel Sounds Present, Soft, Non-Distended, No Hepato-splenomegaly, generalized mild abdominal tenderness. Extremities: No clubbing, No cyanosis, No edema, Capillary Refill Less than 3 Seconds Skin: No rashes, No breakdown Musculoskeletal: No Tenderness to Palpation of Joints or Extremities Neurological: Neuro grossly intact Psych/Mental Status: Normal Affect, Appropriate Results Lab / Micro Data Attestation: I reviewed the patient's lab results. Labs: Laboratory Results - last 24 hr 01/22/23 16:04: Total Bilirubin 1.10 H, Direct Bilirubin 0.34 H, AST 12 L, ALT 18, Alkaline Phosphatase 89, Total Protein 5.7 L, Albumin 2.7 L, Globulin 3.0 Rhythm Strip Rhythm Strip: Sinus Tach Rate: 108 Ectopy: None Assessment & Plan Assessment/Plan (1) Abdominal pain, vomiting, and diarrhea: PLAN: Likely chemotherapy induced. Patient has previously been checked for C. difficile and enteric pathogens which have been negative. Certainly not a surgical abdomen but will check a CAT scan without contrast. Checking CAT scan with Compal contrast as patient will not be able to tolerate oral contrast and does have a known iodine allergy. Recheck C. difficile and enteric pathogen's Supportive management with antiemetics, pain control (2) Neutropenia due to and not concurrent with chemotherapy: PLAN: ANC 1500. Would continue to monitor for now (3) Hypokalemia: PLAN: Secondary to nausea vomiting and diarrhea Replace Check magnesium PLAN: Plan Chronic conditions * Breast cancer: Follow-up with oncology as outpatient. Patient only takes dexamethasone around chemotherapy is not a chronic medication so I do not feel the patient is going through an adrenal crisis. Patient has a history of bilateral breast cancers. Patient had a PET scan in November 2022 that showed widespread metastatic disease involving liver, bones in addition to the chest wall recurrence. * Diabetes mellitus type 2: Hold dulaglutide and metformin for now * Hypertension: Stable at this time. Monitor * Coronary artery disease: Continue with metoprolol, aspirin and clopidogrel. VTE prophylaxis: Moderate risk. Enoxaparin. CODE STATUS: Addressed with the patient and family. Patient is full code. Charges/Coding Visit Charges Inpatient E&M: 50566 Init Hosp L3
[2023-01-22] MEDS: 0.9% Normal Saline 1,000 ML 150 ML IV (21:30)
[2023-01-22] MEDS: Potassium Chloride 10mEq/100mL 10 MEQ/100 ML IV.SOLN. 100 MEQ IV BOLUS ×3 (21:30→23:19)
[2023-01-22] MEDS: Metoprolol Tartrate 50 MG Tablet PO (22:25)
[2023-01-22 23:50] LABS: Bedside Glucose 114 mg/dL (74-106)
[2023-01-23] MEDS: Ondansetron 4 MG/2 ML Vial IV ×2 (02:08→10:27)
[2023-01-23] MEDS: 0.9% Saline Lock 10 ML Syringe IV (02:08)
[2023-01-23] MEDS: 0.9% Normal Saline 1,000 ML 150 ML IV ×3 (05:00→17:37)
[2023-01-23 06:00] VITALS: BP 103/53; PULSE 81; RESP 18; TEMP 36.6; O2SAT 93
[2023-01-23] MEDS: Menthol/Lanolin/Calamine/Znox 113 GM Tube 1 APPLIC TOPICAL ×3 (06:07→22:07)
[2023-01-23] MEDS: Nystatin Ointment 1 APPLIC TOPICAL (06:09)
[2023-01-23 06:45] LABS: Absolute Lymphocyte Count 0.94 X10^3/uL (0.83-4.51); Absolute Neutrophil Count 0.6 X10^3/uL (2.0-7.7); Basophil# 0.06 X10^3/uL; Eosinophil# 0.09 X10^3/uL; Eosinophils% 4.5 % (0-5); Hematocrit 34.9 % (37-47); Hemoglobin 11.2 g/dL (12.0-15.0); Lymphocyte # 0.94 X10^3/ul (0.83-4.51); Lymphocyte % 46.8 % (19-41); Mean Corp Hgb Conc 32.1 g/dL (32-36); Mean Corpuscular Hgb 28.4 pg (27.0-32.0); Mean Corpuscular Volume 88.4 fL (81-99); Mean Platelet Vol. 10.3 fl (6.2-12.0); Monocyte# 0.33 X10^3/uL; Monocyte% 16.4 % (0-10); NRBC Flagged by Analyzer 0 % (0-5); Neutrophil # 0.58 X10^3/uL (2.7-7.7); Neutrophil % 28.8 % (47-70); POSITIVE DIFFERENTIAL YES; POSITIVE MORPHOLOGY YES; Platelet Count 313 K/mm3 (150-450); RBC Distribution Width CV 14.8 % (11.6-14.6); RBC Distribution Width SD 47.5 fl (35.1-43.9); Red Blood Count 3.95 M/mm3 (4.2-5.4)
[2023-01-23 06:53] LABS: Differential Indicated SCAN CRITERIA MET
[2023-01-23 07:11] LABS: Bedside Glucose 104 mg/dL (74-106)
[2023-01-23 07:27] LABS: ALB/GLOB Ratio 0.9 RATIO (0.9-2.4); AST(SGOT) 21 U/L (15-37); Alanine Aminotransfer ALT/SGPT 18 U/L (13-56); Albumin, Serum 2.3 g/dL (3.2-5.0); Alkaline Phosphatase 75 U/L (45-117); Anion Gap 7 (5-15); BUN 9 mg/dL (7-18); BUN/Creat Ratio 18.2 RATIO (10-20); Calcium,Total 6.2 mg/dL (8.5-10.1); Chloride 109 mmol/L (98-107); Creatinine, Serum 0.49 mg/dL (0.55-1.02); EST Glomerular Filtration Rate 129 mL/min (>60); Est Glom Filt Rate - Afr Amer 156 mL/min (>60); Estimated Creatinine Clearance 43.07 ml/min; Globulin 2.6 g/dL (2.2-4.2); Glucose 114 mg/dL (74-106); Magnesium 1.6 mg/dL (1.6-2.6); Potassium 3.2 mmol/L (3.5-5.1); Protein, Total 4.9 g/dL (6.4-8.2); Sodium Level 141 mmol/L (136-145)
[2023-01-23 08:11] LABS: Differential Comment SCANNED
[2023-01-23 10:21] VITALS: PULSE 90
[2023-01-23] MEDS: Enoxaparin 40 MG/0.4 ML Syringe SC (10:21)
[2023-01-23] MEDS: Aspirin 81 MG TAB.CHEW PO (10:21)
[2023-01-23] MEDS: Clopidogrel Bisulfate 75 MG Tablet PO (10:21)
[2023-01-23] MEDS: Metoprolol Tartrate 50 MG Tablet PO (10:21)
[2023-01-23 11:00] VITALS: BP 97/44; PULSE 76; RESP 18; TEMP 37.3; O2SAT 95
[2023-01-23 11:00] LABS: Bedside Glucose 92 mg/dL (74-106)
[2023-01-23] MEDS: Potassium Chloride 10mEq/100mL 10 MEQ/100 ML IV.SOLN. 100 MEQ IV BOLUS ×2 (13:58→16:35)
--- NOTE | 2023-01-23 14:00 | CASEMGMT ---
FLAVIA MALDONADO DC Planning Assessment: Face to Face with patient for initial transition planning/care coordination assessment. FLAVIA MALDONADO introduced self and role at [facility], pt voices understanding. Pt easily aroused, alert and oriented x4. Pt's son and DIL at bedside and pt agreeable to participating in the assessment with family present. Care providers, pharmacy, and demographics verified. Admitting Dx: Intractable n/v/d 2/2 chemo, Breast CA with mets to bone and liver PCP: [facility] Specialists: Kristopher (oncology), Yunior (pulmonary), Luca (cardiology) Preferred [facility]acy: [facility] Insurance: MCR A/B, [employer] Prescription Benefit: yes Living Will/HPOA: Yes/Yes, Asked pt to have documents brought in for inclusion in her medical record LNOK: Daughter Sanford, son Haider and son Robert Living Arrangements: Pt lives alone in a single story home with two steps to enter without a handrail. Pt states she is independent with ADLS including self care and household tasks. Pt's family is supportive and able to assist if needed. Transportation: Pt drives and family is able to assist if needed. DME: walker, raised toilet seat, shower chair, hand held shower, grab bars, Cpap from [employer] without O2, glucometer. Pt states she checks her sugars daily. SNF/HHC: denies any previous providers Plan: Pt plans to return home with the support of her family. Pt states she participated in therapy today and denies any concerns with returning home at this time. Will continue to monitor and assist with DC needs as identified. Kamille Mendes RN CM
[2023-01-23 16:45] VITALS: BP 101/46; PULSE 72; RESP 18; TEMP 37.4; O2SAT 94
[2023-01-23] MEDS: Ensure Clear 120 ML Liquid PO (17:41)
[2023-01-23 18:05] LABS: Bedside Glucose 95 mg/dL (74-106)
--- NOTE | 2023-01-23 18:47 | PN.HOSP_ITS ---
Reason for Visit Reason for Visit: Diagnoses Agranulocytosis secondary to cancer chemotherapy (01/22/23) Hypokalemia (01/22/23) Unspecified abdominal pain (01/22/23) Vomiting, unspecified (01/22/23) Diarrhea, unspecified (01/22/23) Adverse effect of antineoplastic and immunosuppressive drugs, sequela (01/22/23) Subjective Subjective Patient was seen and examined today, she states her nausea was better today but she still had some diarrhea-nursing stated to me that they were not aware of any diarrhea today from the patient however. Patient requested that her diet be increased if possible-she was okay with a regular diet. I placed the patient on Bentyl to see if it was slow down any diarrhea. Patient's enteric panel and C. difficile test were negative. Objective Data Objective Data Vital Signs: Vital Signs Temp Pulse Resp BP Pulse Ox O2 Del Method 99.3 F H 72 18 101/46 L 94 Room Air 01/23/23 16:45 01/23/23 16:45 01/23/23 16:45 01/23/23 16:45 01/23/23 16:45 01/23/23 16:45 Oxygen Delivery Method Room Air Weight: 93.5 kg Body Mass Index (BMI) 34.2 Intake & Output: Intake and Output for Last 24 Hours 01/21/23 01/22/23 01/23/23 23:59 23:59 23:59 Intake Total 2181.67 / 2181.67 3355 / 3355 Balance 2181.67 / 2181.67 3355 / 3355 Lab / Micro Data Result Diagrams: 01/23/23 06:15 01/23/23 06:15 Labs: Laboratory Results - last 24 hr 01/22/23 23:15: POC Glucose 114 H 01/23/23 06:11: POC Glucose 104 01/23/23 06:15: WBC 2.0 L, RBC 3.95 L, Hgb 11.2 L, Hct 34.9 L, MCV 88.4, MCH 28.4, MCHC 32.1, RDW Std Deviation 47.5 H, RDW Coeff of Ruel 14.8 H, Plt Count 313, MPV 10.3, Immature Gran % (Auto) 0.500, Neut % (Auto) 28.8 L, Lymph % (Auto) 46.8 H, [place] % (Auto) 16.4 H, Eos % (Auto) 4.5, Baso % (Auto) 3.0 H, Absolute Neuts (auto) 0.6 L, Absolute Lymphs (auto) 0.94, Nucleated RBC % 0, Differential Comment SCANNED 01/23/23 06:15: Sodium 141, Potassium 3.2 L, Chloride 109 H, Carbon Dioxide 25.0, Anion Gap 7, BUN 9, Creatinine 0.49 L, Estim Creat Clear Calc 43.07, Est GFR (MDRD) Af Amer 156, Est GFR (MDRD) Non-Af 129, BUN/Creatinine Ratio 18.2, Glucose 114 H, Calcium 6.2 L*, Magnesium 1.6, Total Bilirubin 0.70, AST 21, ALT 18, Alkaline Phosphatase 75, Total Protein 4.9 L, Albumin 2.3 L, Globulin 2.6, Albumin/Globulin Ratio 0.9 01/23/23 10:39: POC Glucose 92 01/23/23 17:45: POC Glucose 95 Micro: Microbiology 01/22/23 21:50 Stool C. difficile DNA Amplification - Final 01/22/23 21:50 Stool Enteric Bacteriology - Final Radiography Diagnostic Testing: Radiology Impression Abdomen/Pelvis CT 01/22/23 18:50 IMPRESSION: 1. Fluid-filled loops of large and small bow which may represent enteritis with incipient diarrhea. No other acute abnormalities are identified. 2. Stable left adrenal mass. Electronically Signed: Josue Yang MD at 19:52 EST Reading Location ID and State: [facility] / [place] Tel , Service support , Rhythm Strip Rhythm Strip: Sinus Tach Rate: 108 Ectopy: None Physical Exam Const alert, oriented x3, no apparent distress, average body habitus and healthy appearing General Appearance: cooperative, well kempt and well developed Orientation / Consciousness: awake, oriented to person, oriented to place and oriented to time HEENT normocephalic and moist oral mucous membranes Eyes PERRL, EOMs intact bilaterally and conjunctivae normal Neck supple, no JVD, thyroid normal and no carotid bruits General: trachea midline Resp normal respiratory effort and clear to auscultation bilaterally Auscultation: Negative for rales, rhonchi or wheezes Cardio regular rate, regular rhythm, S1 normal heart sound, S2 normal heart sound, no murmurs, no rub and no gallops GI normal to inspection, nondistended, normoactive bowel sounds, soft to palpation, non-tender and non-distended Extremity normal to inspection and no clubbing, cyanosis or edema Skin no rashes or lesions noted General Skin Exam: no breakdown Neuro oriented x3, CN's II-XII intact bilaterally, moves all extremities, no focal motor deficits and no sensory deficits noted Sensorium / Orientation: awake, alert, oriented to person, oriented to place and oriented to time Speech: speech normal Psych affect normal Assessment & Plan Assessment/Plan (1) Abdominal pain, vomiting, and diarrhea: PLAN: Plan 1. Nausea and vomiting with diarrhea-etiology unclear, possibly secondary to chemotherapy, I will advance patient's diet and continue IV fluids for now at 100 cc/h, patient was placed on Bentyl for prevention of diarrhea. #2 hypokalemia-patient was given potassium supplementation today, labs will be rechecked tomorrow #3 hypocalcemia-patient was given IV calcium supplementation today #4 neutropenia-secondary to chemotherapy, patient will be monitored as needed #5 breast cancer-complicates care, medical course, recovery, and prognosis Total clinical time spent by myself addressing the patient's medical issues, reviewing all of her data, and collaborating with patient's care team: 35 minutes. Charges/Coding Visit Charges Inpatient E&M: 85533 Subs Hosp L2
[2023-01-23 22:04] VITALS: BP 109/50; PULSE 92; RESP 16; TEMP 37.2; O2SAT 95
[2023-01-23 22:09] VITALS: BP 109/50; PULSE 92
[2023-01-23 22:45] LABS: Bedside Glucose 93 mg/dL (74-106)
[2023-01-24] VITALS (7 sets, daily range): BP systolic 97–124; BP diastolic 53–77; PULSE 69–93; RESP 16–18; TEMP 36.8–37.2; O2SAT 94–96
[2023-01-24] MEDS: 0.9% Normal Saline 1,000 ML 100 ML IV ×3 (00:59→21:49)
[2023-01-24] MEDS: Menthol/Lanolin/Calamine/Znox 113 GM Tube 1 APPLIC TOPICAL ×3 (06:47→21:41)
[2023-01-24] MEDS: Dicyclomine 10 MG Capsule PO ×3 (06:48→16:21)
[2023-01-24 07:10] LABS: Bedside Glucose 85 mg/dL (74-106)
[2023-01-24 07:53] LABS: ALB/GLOB Ratio 0.8 RATIO (0.9-2.4); AST(SGOT) 13 U/L (15-37); Alanine Aminotransfer ALT/SGPT 15 U/L (13-56); Albumin, Serum 2.2 g/dL (3.2-5.0); Alkaline Phosphatase 70 U/L (45-117); Anion Gap 5 (5-15); BUN 6 mg/dL (7-18); BUN/Creat Ratio 12.3 RATIO (10-20); Calcium,Total 6.2 mg/dL (8.5-10.1); Chloride 113 mmol/L (98-107); Creatinine, Serum 0.49 mg/dL (0.55-1.02); EST Glomerular Filtration Rate 131 mL/min (>60); Est Glom Filt Rate - Afr Amer 159 mL/min (>60); Estimated Creatinine Clearance 43.07 ml/min; Globulin 2.7 g/dL (2.2-4.2); Glucose 90 mg/dL (74-106); Potassium 3.2 mmol/L (3.5-5.1); Protein, Total 4.9 g/dL (6.4-8.2); Sodium Level 143 mmol/L (136-145)
--- NOTE | 2023-01-24 07:59 | WOUNDNOTE ---
Dr Salmon aware that Ca+ level is 6.2 again this am.
[2023-01-24] MEDS: Ondansetron 4 MG/2 ML Vial IV ×2 (08:58→17:03)
--- NOTE | 2023-01-24 09:52 | CASEMGMT ---
FLAVIA CM in to pt room, pt friend at bedside. Pt states she feels that she is getting better but not quite where she wants to be. States the hospitalist will re evaluate her this afternoon for dc home. Pt states she does still want to go home. She denies any homegoing needs. She states she is walking to the bathroom and getting to the chair on her own. Pt states she just needs to get her nausea under control.
[2023-01-24] MEDS: Aspirin 81 MG TAB.CHEW PO (10:59)
[2023-01-24] MEDS: Metoprolol Tartrate 50 MG Tablet PO (10:59)
[2023-01-24] MEDS: Enoxaparin 40 MG/0.4 ML Syringe SC (11:03)
[2023-01-24] MEDS: Clopidogrel Bisulfate 75 MG Tablet PO (11:04)
[2023-01-24 12:36] LABS: Bedside Glucose 94 mg/dL (74-106)
--- NOTE | 2023-01-24 14:35 | CASEMGMT ---
Social work Pt confirmed with SW that Robert Wolfe is agent named in HCPOA documents. Pt stated also has LW. SW informed copies of these documents are not on file with [facility] and pt could bring copies in and either give to Education Reviewer or if later, drop them off at Medical Records Department. Pt disagreeing, stated does not want them on file. MINH Pink
[2023-01-24 16:25] LABS: Bedside Glucose 90 mg/dL (74-106)
--- NOTE | 2023-01-24 17:07 | PCM.PN.HOSP ---
Reason for Visit Reason for Visit: Diagnoses Agranulocytosis secondary to cancer chemotherapy (01/22/23) Hypokalemia (01/22/23) Unspecified abdominal pain (01/22/23) Vomiting, unspecified (01/22/23) Diarrhea, unspecified (01/22/23) Adverse effect of antineoplastic and immunosuppressive drugs, sequela (01/22/23) Subjective Subjective Patient was seen and examined today, she states she is more nauseated today and does not feel well in general. Patient's calcium today was 6.2, I will write for IV replacement. Objective Data Objective Data Vital Signs: Vital Signs Temp Pulse Resp BP Pulse Ox O2 Del Method 98.9 F 93 18 124/56 H 96 Room Air 01/24/23 09:09 01/24/23 10:59 01/24/23 09:09 01/24/23 10:59 01/24/23 09:09 01/24/23 17:04 Oxygen Delivery Method Room Air Weight: 93.5 kg Body Mass Index (BMI) 34.2 Intake & Output: Intake and Output for Last 24 Hours 01/22/23 01/23/23 01/24/23 23:59 23:59 23:59 Intake Total 2181.67 / 2181.67 3560 / 3560 2160 / 2160 Balance 2181.67 / 2181.67 3560 / 3560 2160 / 2160 Lab / Micro Data Result Diagrams: 01/23/23 06:15 01/24/23 06:10 Labs: Laboratory Results - last 24 hr 01/23/23 17:45: POC Glucose 95 01/23/23 22:24: POC Glucose 93 01/24/23 06:10: Sodium 143, Potassium 3.2 L, Chloride 113 H, Carbon Dioxide 25.0, Anion Gap 5, BUN 6 L, Creatinine 0.49 L, Estim Creat Clear Calc 43.07, Est GFR (MDRD) Af Amer 159, Est GFR (MDRD) Non-Af 131, BUN/Creatinine Ratio 12.3, Glucose 90, Calcium 6.2 L*, Total Bilirubin 0.50, AST 13 L, ALT 15, Alkaline Phosphatase 70, Total Protein 4.9 L, Albumin 2.2 L, Globulin 2.7, Albumin/Globulin Ratio 0.8 L 01/24/23 06:46: POC Glucose 85 01/24/23 11:21: POC Glucose 94 01/24/23 16:05: POC Glucose 90 Micro: Microbiology 01/22/23 21:50 Stool C. difficile DNA Amplification - Final 01/22/23 21:50 Stool Enteric Bacteriology - Final Rhythm Strip Rhythm Strip: Sinus Tach Rate: 108 Ectopy: None Physical Exam Narrative alert, oriented x3, no apparent distress, average body habitus and healthy appearing General Appearance: cooperative, well kempt and well developed Orientation / Consciousness: awake, oriented to person, oriented to place and oriented to time HEENT normocephalic and moist oral mucous membranes Eyes PERRL, EOMs intact bilaterally and conjunctivae normal Neck supple, no JVD, thyroid normal and no carotid bruits General: trachea midline Resp normal respiratory effort and clear to auscultation bilaterally Auscultation: Negative for rales, rhonchi or wheezes Cardio regular rate, regular rhythm, S1 normal heart sound, S2 normal heart sound, no murmurs, no rub and no gallops GI normal to inspection, nondistended, normoactive bowel sounds, soft to palpation, non-tender and non-distended Extremity normal to inspection and no clubbing, cyanosis or edema Skin no rashes or lesions noted General Skin Exam: no breakdown Neuro oriented x3, CN's II-XII intact bilaterally, moves all extremities, no focal motor deficits and no sensory deficits noted Sensorium / Orientation: awake, alert, oriented to person, oriented to place and oriented to time Speech: speech normal Psych affect normal Assessment & Plan Assessment/Plan (1) Abdominal pain, vomiting, and diarrhea: PLAN: Plan 1. Nausea and vomiting with diarrhea-etiology unclear, possibly secondary to chemotherapy, I will advance patient's diet and continue IV fluids for now at 100 cc/h, patient was placed on Bentyl for prevention of diarrhea. #2 hypokalemia-patient was given potassium supplementation today, labs will be rechecked tomorrow #3 hypocalcemia-patient was given IV calcium supplementation today #4 neutropenia-secondary to chemotherapy, patient will be monitored as needed #5 breast cancer-complicates care, medical course, recovery, and prognosis Total clinical time spent by myself addressing the patient's medical issues, reviewing all of her data, and collaborating with patient's care team: 35 minutes. Charges/Coding Visit Charges Inpatient E&M: 07518 Subs Hosp L2
[2023-01-24] MEDS: Potassium Chloride Oral Tablet 20 MEQ 40 MEQ PO (18:00)
[2023-01-24 22:11] LABS: Bedside Glucose 97 mg/dL (74-106)
[2023-01-25 04:49] VITALS: BP 113/45; PULSE 83; RESP 18; TEMP 36.7; O2SAT 95
[2023-01-25 06:29] LABS: Hematocrit 34.5 % (37-47); Hemoglobin 10.8 g/dL (12.0-15.0); Mean Corp Hgb Conc 31.3 g/dL (32-36); Mean Corpuscular Hgb 28.6 pg (27.0-32.0); Mean Corpuscular Volume 91.5 fL (81-99); POSITIVE COUNT YES; POSITIVE DIFFERENTIAL YES; POSITIVE MORPHOLOGY YES; Platelet Count 354 K/mm3 (150-450); RBC Distribution Width CV 15.9 % (11.6-14.6); RBC Distribution Width SD 51.8 fl (35.1-43.9); Red Blood Count 3.77 M/mm3 (4.2-5.4); White Blood Count 22.1 K/mm3 (4.4-11.0)
[2023-01-25 06:38] LABS: Differential Indicated MANUAL DIFF
[2023-01-25] MEDS: 0.9% Normal Saline 1,000 ML 100 ML IV (06:41)
[2023-01-25] MEDS: Menthol/Lanolin/Calamine/Znox 113 GM Tube 1 APPLIC TOPICAL ×2 (06:42→15:37)
[2023-01-25 06:59] LABS: Eosinophil 1 % (0-5); Lymphocyte 13 % (19-41); Metamyelocyte 4 % (0-1); Monocyte 6 % (0-10); Myelocyte 2 % (0-0); Neutrophil-Band 14 % (0-5); Neutrophil-Segmented 60 % (47-70); Total Cells Counted 100 (MANUAL DIFF)
[2023-01-25 07:00] LABS: Platelet Estimate ADEQUATE (ADEQ)
[2023-01-25 07:01] LABS: Absolute Neutrophil Count 16.4 X10^3/uL (2.0-7.7); Acanthocytes RARE; Anisocytosis 1+; Macrocytosis RARE; Microcytosis RARE; Neutrophil # 16.37 X10^3/uL (2.7-7.7); Ovalocyte RARE; Polychromasia RARE
[2023-01-25 07:02] LABS: Absolute Lymphocyte Count 2.88 X10^3/uL (0.83-4.51); Lymphocyte # 2.88 X10^3/ul (0.83-4.51)
[2023-01-25 07:06] LABS: ALB/GLOB Ratio 0.9 RATIO (0.9-2.4); AST(SGOT) 15 U/L (15-37); Alanine Aminotransfer ALT/SGPT 14 U/L (13-56); Albumin, Serum 2.3 g/dL (3.2-5.0); Alkaline Phosphatase 75 U/L (45-117); Anion Gap 8 (5-15); BUN 3 mg/dL (7-18); Calcium,Total 6.7 mg/dL (8.5-10.1); Chloride 116 mmol/L (98-107); EST Glomerular Filtration Rate 127 mL/min (>60); Est Glom Filt Rate - Afr Amer 153 mL/min (>60); Estimated Creatinine Clearance 43.07 ml/min; Globulin 2.7 g/dL (2.2-4.2); Glucose 88 mg/dL (74-106); Potassium 3.1 mmol/L (3.5-5.1); Sodium Level 146 mmol/L (136-145)
[2023-01-25 07:11] LABS: Bedside Glucose 88 mg/dL (74-106)
[2023-01-25 08:12] VITALS: BP 139/63; PULSE 94; RESP 18; TEMP 36.7; O2SAT 96
[2023-01-25] MEDS: Aspirin 81 MG TAB.CHEW PO (08:15)
[2023-01-25 09:21] VITALS: O2SAT 96
[2023-01-25 09:54] VITALS: BP 139/63; PULSE 94
[2023-01-25] MEDS: Metoprolol Tartrate 50 MG Tablet PO (09:54)
[2023-01-25] MEDS: Enoxaparin 40 MG/0.4 ML Syringe SC (09:54)
[2023-01-25] MEDS: Clopidogrel Bisulfate 75 MG Tablet PO (09:55)
[2023-01-25 13:01] LABS: Pathologist Review Reviewed
[2023-01-25] MEDS: Ondansetron 4 MG/2 ML Vial IV (15:38)
[2023-01-25] MEDS: Potassium Chloride 10mEq/100mL 10 MEQ/100 ML IV.SOLN. 100 MEQ IV BOLUS ×2 (15:50→16:52)
[2023-01-25 15:53] VITALS: BP 106/64; PULSE 84; RESP 16; TEMP 36.8; O2SAT 94
[2023-01-25 16:16] LABS: Bedside Glucose 106 mg/dL (74-106)
[2023-01-25 16:25] LABS: Bedside Glucose 98 mg/dL (74-106)
--- NOTE | 2023-01-25 16:36 | DCINST_ITS ---
Discharge Instructions Diet Discharge Diet: 1800 Calorie Control Diet Activity Discharge Activity: Return to Normal Activity Weight Bearing Status: Full weight bearing Follow Up Care Test Results: Test results from this visit will be discussed in further detail at your follow- up appointment, if applicable. Discharge Plan Admission Admit Date/Time: 01/22/23 18:40 Primary Reason for Your Visit: nausea/vomiting/diarrhea Attending Provider: Claudio Ovalle Primary Care Provider: Jb Cast Consulting Providers: Darin Goodwin Instructions Additional Instructions / Restrictions: Take Immodium for diarrhea Discharge Orders/Prescriptions Prescriptions: Continued aspirin 81 mg tablet,chewable 81 mg PO DAILY nitroglycerin 0.4 mg tablet, sublingual 0.4 mg SL Q5M PRN (Reason: Cardiac/Chest Pain) Qty: 25 3RF metformin 1,000 mg tablet 1,000 mg PO BID calcium carbonate [Calcium 600] 600 mg calcium (1,500 mg) tablet 600 mg PO BID isosorbide mononitrate 30 mg tablet extended release 24 hr 30 mg PO DAILY Qty: 90 4RF atorvastatin 20 mg tablet 20 mg PO QPM (DME) Breast prosthesis (left) See Rx Instructions .Route .MEDSUPPLY Qty: 1 0RF Rx Instructions: As directed (DME) Breast prosthesis (right) See Rx Instructions .Route .MEDSUPPLY Qty: 3 3RF Rx Instructions: As directed (DME) Mastectomy bra See Rx Instructions .Route .MEDSUPPLY Qty: 3 3RF Rx Instructions: As directed ondansetron 8 mg tablet,disintegrating 8 mg PO Q8H PRN (Reason: nausea and vomiting) Qty: 30 2RF lidocaine-prilocaine 2.5-2.5 % cream 1 applic topical ONCE PRN (Reason: port access) 30 Days Qty: 30 2RF dexamethasone 4 mg tablet 8 mg PO .COMPLEX Qty: 12 5RF Rx Instructions: 8 mg orally ONLY the day before, the day of, and the day after chemotherapy; omeprazole magnesium [Prilosec OTC] 20 mg tablet,delayed release (DR/EC) 20 mg PO DAILY Qty: 30 0RF ergocalciferol (vitamin D2) 1,250 mcg (50,000 unit) capsule 50,000 unit PO MOFR Label Comments: Vitamin D supplement TAKES 1 TAB 2X PER WEEK TAKES SUNDAY AND SUNDAY--supplement potassium chloride 10 MEQ tablet 20 meq PO BIDCM 0RF nystatin 100,000 unit/gram cream 1 applic topical TID PRN (Reason: Rash) Qty: 30 0RF Trulicity 0.75 mg/0.5 mL pen injector 0.75 mg SC MO Rx Instructions: mondays metoprolol tartrate 50 mg tablet 50 mg PO BID Qty: 180 3RF clopidogrel 75 mg tablet 75 mg PO DAILY Qty: 90 3RF Discontinued hydrochlorothiazide 25 mg tablet 25 mg PO DAILY Qty: 90 4RF Referrals / Follow Up: Jessica Ochoa MD [Med Staff - Active Staff] - See Referral Note (call office for appointment) Jb Cast MD [Primary Care Provider] - Within 2 Weeks Disposition Disposition (needs filled in before D/C Order can be placed): Home, Self Care
--- NOTE | 2023-01-25 16:43 | DS.PCM_ITS ---
Providers Date of Admission: 01/22/23 Date of Discharge: 01/25/23 Primary Care Physician: Dr. Jb Cast MD Reason For Visit: INTRACTABLE N/V/D Diagnosis Discharge Diagnosis (1) Abdominal pain, vomiting, and diarrhea: Status: Resolved Code(s): R10.9 - Unspecified abdominal pain; R11.10 - Vomiting, unspecified; R19.7 - Diarrhea, unspecified Plan 1. Nausea and vomiting with diarrhea-etiology unclear, possibly secondary to chemotherapy, I will advance patient's diet and continue IV fluids for now at 100 cc/h, patient was placed on Bentyl for prevention of diarrhea. #2 hypokalemia-patient was given potassium supplementation today, labs will be rechecked tomorrow #3 hypocalcemia-patient was given IV calcium supplementation today #4 neutropenia-secondary to chemotherapy, patient will be monitored as needed #5 breast cancer-complicates care, medical course, recovery, and prognosis Total clinical time spent by myself addressing the patient's medical issues, reviewing all of her data, and collaborating with patient's care team: 35 minutes. Medications at Discharge Home Medications potassium chloride 10 mEq tablet,extended release(part/cryst) 20 meq PO BIDCM 07/29/19 aspirin 81 mg chewable tablet 81 mg PO DAILY 05/24/20 ergocalciferol (vitamin D2) 1,250 mcg (50,000 unit) capsule 50,000 unit PO MOFR supplement 05/24/20 dulaglutide 0.75 mg/0.5 mL subcutaneous pen injector (Trulicity) 0.75 mg subcut MO 02/22/21 metformin 1,000 mg tablet 1,000 mg PO BID 03/09/21 nitroglycerin 0.4 mg sublingual tablet 0.4 mg sublingual Q5M PRN Cardiac/Chest Pain #25 tabs 07/22/21 atorvastatin 20 mg tablet 20 mg PO QPM 10/03/21 calcium carbonate 600 mg calcium (1,500 mg) tablet (Calcium) 600 mg PO BID 01/06/22 isosorbide mononitrate 30 mg tablet,extended release 24 hr 30 mg PO DAILY #90 tabs 01/06/22 metoprolol tartrate 50 mg tablet 50 mg PO BID #180 tabs 10/18/22 Breast prosthesis (left) #1 ea 11/07/22 Breast prosthesis (right) #3 ea 11/07/22 Mastectomy bra #3 ea 11/07/22 clopidogrel 75 mg tablet 75 mg PO DAILY #90 tabs 11/13/22 dexamethasone 4 mg tablet 8 mg PO .COMPLEX #12 tabs 12/18/22 lidocaine-prilocaine 2.5 %-2.5 % topical cream 1 applic topical ONCE PRN port access 30 days #30 grams 12/18/22 omeprazole magnesium 20 mg tablet,delayed release (Prilosec OTC) 20 mg PO DAILY #30 tabs 12/18/22 ondansetron 8 mg disintegrating tablet 8 mg PO Q8H PRN nausea and vomiting #30 tabs 12/18/22 nystatin 100,000 unit/gram topical cream 1 applic topical TID PRN Rash #30 grams 01/21/23 Hospital Course Operations None Procedures None Summary of Care Provided Minutes Spent on Discharge: 31 Hospital Course: This 77-year-old white female was seen in the emergency room at [facility] with complaints of nausea, vomiting, and diarrhea. She had received IV fluids as an outpatient 3 days prior at the infusion center, patient is being treated for invasive ductal carcinoma of the breast. Lab obtained in the emergency room showed a normal BUN and creatinine, calcium was 7.2 and magnesium was 1.5. Patient received IV fluids in the emergency room but was too weak to go home and she was admitted to [place] [address] and given IV fluids, IV calcium replacement, and IV potassium supplementation. On 01/25/2023, patient was seen and examined: On examination she appeared in good health and spirits, she does not appear to be in any distress. Vital signs as documented. Skin warm and dry and without overt rashes. Neck without JVD, thyroid appears normal, trachea is midline, neck is supple. Lungs clear, normal air movement was noted. Heart exam notable for regular rhythm, normal sounds and absence of murmurs, rubs or gallops. Abdomen unremarkable and without evidence of organomegaly, masses, or abdominal aortic enlargement, bowel sounds are present in all 4 quadrants, no abdominal tenderness was noted. Extremities nonedematous, no cyanosis was noted, no clubbing was noted. Neuro: Cranial nerves II through XII are grossly intact, no focal motor deficits were noted, sensation to light touch and pinprick is intact, motor exam 5/5 throughout. Psych: Patient is alert and oriented x3, she does not appear anxious or depressed, she does not appear agitated. Patient appears stable for discharge home on 01/25/2023. Weight / BMI Weight Weight: 93.5 kg Body Mass Index (BMI) 34.2 ABG / Lab / Microbiology Data Result Diagrams: 01/25/23 06:00 01/25/23 06:00 Laboratory: Laboratory Results - last 24 hr 01/24/23 21:40: POC Glucose 97 01/25/23 06:00: Sodium 146 H, Potassium 3.1 L, Chloride 116 H, Carbon Dioxide 22.0, Anion Gap 8, BUN 3 L, Creatinine 0.50 L, Estim Creat Clear Calc 43.07, Est GFR (MDRD) Af Amer 153, Est GFR (MDRD) Non-Af 127, BUN/Creatinine Ratio 6.0 L, Glucose 88, Calcium 6.7 L, Total Bilirubin 0.40, AST 15, ALT 14, Alkaline Phosphatase 75, Total Protein 5.0 L, Albumin 2.3 L, Globulin 2.7, Albumin/Globulin Ratio 0.9 01/25/23 06:00: WBC 22.1 H, RBC 3.77 L, Hgb 10.8 L, Hct 34.5 L, MCV 91.5, MCH 28.6, MCHC 31.3 L, RDW Std Deviation 51.8 H, RDW Coeff of Ruel 15.9 H, Plt Count 354, MPV 10.0, Neut % (Auto) Not Reportable, Absolute Neuts (auto) 16.4 H, Absolute Lymphs (auto) 2.88, Total Counted 100, Neutrophils % (Manual) 60, Band Neutrophils % 14 H, Lymphocytes % (Manual) 13 L, Monocytes % (Manual) 6, Eosinophils % (Manual) 1, Metamyelocytes % 4 H, Myelocytes % 2 H, Diff Path Review Reviewed, Platelet Estimate ADEQUATE, Polychromasia RARE, Anisocytosis 1+, Microcytosis RARE, Macrocytosis RARE, Ovalocytes RARE, Acanthocytes (Spur) RARE 01/25/23 06:46: POC Glucose 88 01/25/23 11:42: POC Glucose 106 01/25/23 16:02: POC Glucose 98 Microbiology: Microbiology 01/22/23 21:50 Stool C. difficile DNA Amplification - Final 01/22/23 21:50 Stool Enteric Bacteriology - Final D/C Instructions Discharge Diet: 1800 Calorie Control Diet Weight Bearing Status: Full weight bearing Meaningful Use Info Meaningful Use Diagnoses (Choose all that apply): None applicable Discharge Plan Admission Admit Date/Time: 01/22/23 18:40 Primary Reason for Your Visit: nausea/vomiting/diarrhea Attending Provider: Claudio Ovalle Primary Care Provider: Jb Cast Consulting Providers: Darin Goodwin Instructions Additional Instructions / Restrictions: Take Immodium for diarrhea Discharge Orders/Prescriptions Prescriptions: Continued aspirin 81 mg tablet,chewable 81 mg PO DAILY nitroglycerin 0.4 mg tablet, sublingual 0.4 mg SL Q5M PRN (Reason: Cardiac/Chest Pain) Qty: 25 3RF metformin 1,000 mg tablet 1,000 mg PO BID calcium carbonate [Calcium 600] 600 mg calcium (1,500 mg) tablet 600 mg PO BID isosorbide mononitrate 30 mg tablet extended release 24 hr 30 mg PO DAILY Qty: 90 4RF atorvastatin 20 mg tablet 20 mg PO QPM (DME) Breast prosthesis (left) See Rx Instructions .Route .MEDSUPPLY Qty: 1 0RF Rx Instructions: As directed (DME) Breast prosthesis (right) See Rx Instructions .Route .MEDSUPPLY Qty: 3 3RF Rx Instructions: As directed (DME) Mastectomy bra See Rx Instructions .Route .MEDSUPPLY Qty: 3 3RF Rx Instructions: As directed ondansetron 8 mg tablet,disintegrating 8 mg PO Q8H PRN (Reason: nausea and vomiting) Qty: 30 2RF lidocaine-prilocaine 2.5-2.5 % cream 1 applic topical ONCE PRN (Reason: port access) 30 Days Qty: 30 2RF dexamethasone 4 mg tablet 8 mg PO .COMPLEX Qty: 12 5RF Rx Instructions: 8 mg orally ONLY the day before, the day of, and the day after chemotherapy; omeprazole magnesium [Prilosec OTC] 20 mg tablet,delayed release (DR/EC) 20 mg PO DAILY Qty: 30 0RF ergocalciferol (vitamin D2) 1,250 mcg (50,000 unit) capsule 50,000 unit PO MOFR Label Comments: Vitamin D supplement TAKES 1 TAB 2X PER WEEK TAKES SUNDAY AND SUNDAY--supplement potassium chloride 10 MEQ tablet 20 meq PO BIDCM 0RF nystatin 100,000 unit/gram cream 1 applic topical TID PRN (Reason: Rash) Qty: 30 0RF Trulicity 0.75 mg/0.5 mL pen injector 0.75 mg SC MO Rx Instructions: mondays metoprolol tartrate 50 mg tablet 50 mg PO BID Qty: 180 3RF clopidogrel 75 mg tablet 75 mg PO DAILY Qty: 90 3RF Discontinued hydrochlorothiazide 25 mg tablet 25 mg PO DAILY Qty: 90 4RF Referrals / Follow Up: Jessica Ochoa MD [Med Staff - Active Staff] - See Referral Note (call office for appointment) Jb Cast MD [Primary Care Provider] - Within 2 Weeks Disposition Disposition (needs filled in before D/C Order can be placed): Home, Self Care Charges/Coding Visit Charges Inpatient E&M: 48847 Disch Hosp >30min
[2023-01-25 18:00] VITALS: BP 112/76; PULSE 78; RESP 18; TEMP 36.6; O2SAT 97
[2023-01-25] MEDS: 0.9% Saline Lock 10 ML Syringe IV (18:28)
== END 2023-01-25 18:45 | disposition home or self-care (01) | DRG 394 ==
LOC: ED 17:43 → MS3 01-23 00:29
PROVIDERS: Emergency Provider Emergency Medicine; PCP Family Medicine; Visit Provider Internal Medicine
DX: K52.1 Toxic gastroenteritis and colitis (principal); C79.51 Secondary malignant neoplasm of bone; C79.89 Secondary malignant neoplasm of other specified sites; C78.7 Secondary malignant neoplasm of liver and intrahepatic bile duct; D70.1 Agranulocytosis secondary to cancer chemotherapy; E83.51 Hypocalcemia; C50.811 Malignant neoplasm of overlapping sites of right female breast; E86.0 Dehydration; C50.812 Malignant neoplasm of overlapping sites of left female breast; E11.65 Type 2 diabetes mellitus with hyperglycemia; R11.2 Nausea with vomiting, unspecified; I10 Essential (primary) hypertension; E78.00 Pure hypercholesterolemia, unspecified; I25.10 Atherosclerotic heart disease of native coronary artery without angina pectoris; E87.6 Hypokalemia; B37.2 Candidiasis of skin and nail; T45.1X5A Adverse effect of antineoplastic and immunosuppressive drugs, initial encounter; R30.0 Dysuria; Z79.52 Long term (current) use of systemic steroids; Z79.02 Long term (current) use of antithrombotics/antiplatelets; Z79.82 Long term (current) use of aspirin; Z95.5 Presence of coronary angioplasty implant and graft; Z95.1 Presence of aortocoronary bypass graft; Z90.13 Acquired absence of bilateral breasts and nipples; Z79.899 Other long term (current) drug therapy
CPT/HCPCS: 36415; 36591; 74176; 80048; 80053; 80076; 82962; 83735; 85025; 87493; 87506; 96360; 96361; 96365; 96375; 97162; 97166; 97530; 99283; 99284; J7030; A4216; J0610; J2405

== ENCOUNTER → 2023-03-22 | Outpatient (CLI) | payer MEDICARE, OTHER, SELFPAY ==
[2023-01-17 10:06] VITALS: BMI 36.6
--- NOTE | 2023-03-22 12:42 | ECHODONC_ITS ---
Reason For Study: SHORTNESS OF BREATH Procedure This was a 2D Doppler, Color Flow transthoracic echocardiogram. Myocardial strain analysis was performed in this exam to aid in the assessment of cardiac function. Exam performed in department. Left Ventricle Normal LV size. Left ventricular systolic function is normal. The estimated ejection fraction is 60 %. Stage 2 diastolic dysfunction. No regional wall motion abnormalities noted. Right Ventricle Normal RV size. Normal systolic function. Atria Normal left atrium. Normal right atrium. Mitral Valve Normal mitral valve. Tricuspid Valve Normal tricuspid valve. Mild (1+) tricuspid valve insufficiency. Pulmonary artery systolic pressure is 42 mmHg. Aortic Valve Trisinus/trileaflet aortic valve. Pulmonic Valve Normal pulmonic valve. Mild (1+) pulmonic valve insufficiency. Great Vessels Normal aortic root. The pulmonary artery is normal size. Normal inferior vena cava. Pericardium/Pleural No pericardial effusion. MMode/2D Measurements & Calculations LVIDd: 4.4 cm IVSd: 1.0 cm Ao root diam: 3.3 cm LVIDs: 2.8 cm LVPWd: 0.73 cm RVDd: 4.0 cm FS: 37.7 % LAV(MOD-bp): 56.7 ml LVAd ap4: 26.8 cm2 SV(MOD-sp4): 57.4 ml LAV(MOD-bp) Indexed: 28.3 ml/m2 LVLd ap4: 7.4 cm LAV(MOD-sp2): 55.9 ml EDV(MOD-sp4): 82.3 ml LAV(MOD-sp4): 57.9 ml EDV(sp4-el): 82.2 ml LVAs ap4: 14.1 cm2 LVLs ap4: 6.5 cm ESV(MOD-sp4): 24.9 ml ESV(sp4-el): 26.0 ml EF(MOD-sp4): 69.8 % EF(sp4-el): 68.4 % SV(sp4-el): 56.3 ml LA A4 area: 20.6 cm2 LA dimension(2D): 4.2 cm RA A4 area: 18.7 cm2 Time Measurements MV dec time: 0.22 sec Doppler Measurements & Calculations MV E max lc: 101.4 cm/sec Lat Peak E' Lc: 13.3 cm/sec Med Peak E' Lc: 8.7 cm/sec MV A max lc: 77.1 cm/sec E/E' lat: 7.6 E/E' med: 11.6 MV E/A: 1.3 Ao V2 max: 164.5 cm/sec LV V1 max: 96.9 cm/sec PA V2 max: 114.1 cm/sec Ao max P.8 mmHg LV V1 max P.8 mmHg TR max lc: 309.4 cm/sec TR max P.3 mmHg ECHO/ONC Echo Complete Interpretation Summary Normal LV size. Left ventricular systolic function is normal. The estimated ejection fraction is 60 %. Stage 2 diastolic dysfunction. Mild (1+) tricuspid valve insufficiency. The global longitudinal strain is normal. The global longitudinal strain = -17. 9 % (normal). The global longitudinal strain has improved. Ordering Physician: Xiomara Ramirez Referring Physician: THOMAS ALVA Performed By: Mel Patterson RDCS
== END | disposition home or self-care (01) ==
LOC: CVS 12:40
PROVIDERS: PCP Family Medicine; Referring Provider Nurse Practitioner Family; Visit Provider Nurse Practitioner Family
DX: R06.02 Shortness of breath (principal); Z51.81 Encounter for therapeutic drug level monitoring; Z79.899 Other long term (current) drug therapy
CPT/HCPCS: 93306; 93356

== ENCOUNTER 2023-06-18 08:43 | Outpatient (CLI) | payer MEDICARE, OTHER, SELFPAY ==
[2023-01-17 10:06] VITALS: BMI 36.6
--- NOTE | 2023-06-18 08:46 | ECHOLONC_ITS ---
Reason For Study: [employer] Drug Therapy Procedure This was a limited 2D transthoracic echocardiogram. Myocardial strain analysis was performed in this exam to aid in the assessment of cardiac function. Exam performed in department. Left Ventricle Normal LV size. The estimated ejection fraction is 55 %. No regional wall motion abnormalities noted. Right Ventricle Normal RV size. Normal systolic function. Tricuspid Valve Normal tricuspid valve. Mild tricuspid valve insufficiency. Pulmonary artery systolic pressure is 31 mmHg. Aortic Valve Trivial aortic valve insufficiency. Great Vessels Normal aortic root. The pulmonary artery is normal size. Pericardium/Pleural No pericardial effusion. MMode/2D Measurements & Calculations LVIDd: 4.5 cm IVSd: 1.2 cm LVIDs: 2.9 cm LVPWd: 1.0 cm LVAd ap4: 21.1 cm2 FS: 35.3 % LVLd ap4: 6.6 cm EDV(MOD-sp4): 56.3 ml EDV(sp4-el): 57.3 ml LVAs ap4: 12.9 cm2 LVLs ap4: 6.3 cm ESV(MOD-sp4): 22.6 ml ESV(sp4-el): 22.4 ml EF(MOD-sp4): 59.8 % EF(sp4-el): 60.9 % SV(MOD-sp4): 33.7 ml SV(sp4-el): 34.9 ml Doppler Measurements & Calculations TR max nadine: 262.5 cm/sec TR max P.6 mmHg ECHO/ONC Echo, Limited Study Interpretation Summary Normal LV size. The estimated ejection fraction is 55 %. The global longitudinal strain is moderately abnormal. The global longitudinal strain = -14.2% (abnormal). Compared to previous study, the left ventricular systolic function has worsened.. The global longitudinal strain has worsened. Ordering Physician: Jessica Ochoa Referring Physician: Jb Cast Performed By: Angela Hdez, VI, RVT
== END 2023-06-18 23:59 | disposition home or self-care (01) ==
LOC: CVS 08:45
PROVIDERS: PCP Family Medicine; Referring Provider Internal Medicine Hematology & Oncology; Visit Provider Internal Medicine Hematology & Oncology
DX: Z51.81 Encounter for therapeutic drug level monitoring (principal); Z79.899 Other long term (current) drug therapy
CPT/HCPCS: 93308; 93356

== ENCOUNTER → 2023-06-22 | Outpatient (CLI) | payer MEDICARE, OTHER, SELFPAY ==
[2023-01-17 10:06] VITALS: BMI 36.6
== END | disposition home or self-care (01) ==
LOC: LABSPEC 15:51
PROVIDERS: PCP Family Medicine; Referring Provider Family Medicine; Visit Provider Family Medicine
DX: R30.0 Dysuria (principal)
CPT/HCPCS: 87077; 87086; 87088; 87186

== ENCOUNTER → 2023-08-20 | Outpatient (CLI) | payer MEDICARE, OTHER, SELFPAY ==
[2023-01-17 10:06] VITALS: BMI 36.6
[2023-08-20 12:08] LABS: Absolute Lymphocyte Count 2.76 X10^3/uL (0.83-4.51); Absolute Neutrophil Count 4.9 X10^3/uL (2.0-7.7); Basophil# 0.05 X10^3/uL; Basophil% 0.6 % (0-1); Eosinophil# 0.12 X10^3/uL; Eosinophils% 1.4 % (0-5); Hematocrit 40.1 % (37-47); Hemoglobin 12.6 g/dL (12.0-15.0); Lymphocyte # 2.76 X10^3/ul (0.83-4.51); Lymphocyte % 32.5 % (19-41); Mean Corp Hgb Conc 31.4 g/dL (32-36); Mean Corpuscular Hgb 28.7 pg (27.0-32.0); Mean Corpuscular Volume 91.3 fL (81-99); Mean Platelet Vol. 9.9 fl (6.2-12.0); Monocyte# 0.65 X10^3/uL; Monocyte% 7.6 % (0-10); NRBC Flagged by Analyzer 0 % (0-5); Neutrophil # 4.87 X10^3/uL (2.7-7.7); Neutrophil % 57.3 % (47-70); Platelet Count 272 K/mm3 (150-450); RBC Distribution Width CV 15.8 % (11.6-14.6); RBC Distribution Width SD 52.7 fl (35.1-43.9); Red Blood Count 4.39 M/mm3 (4.2-5.4); White Blood Count 8.5 K/mm3 (4.4-11.0)
[2023-08-20 12:32] LABS: ALB/GLOB Ratio 0.9 RATIO (0.9-2.4); AST(SGOT) 23 U/L (15-37); Alanine Aminotransfer ALT/SGPT 39 U/L (13-56); Albumin, Serum 3.4 g/dL (3.2-5.0); Alkaline Phosphatase 61 U/L (45-117); Anion Gap 3 (5-15); BUN 21 mg/dL (7-18); BUN/Creat Ratio 23.8 RATIO (10-20); Chloride 107 mmol/L (98-107); Cholesterol 207 mg/dL (200); Creatinine, Serum 0.88 mg/dL (0.55-1.02); EST Glomerular Filtration Rate 66 mL/min (>60); Est Glom Filt Rate - Afr Amer 80 mL/min (>60); Globulin 3.7 g/dL (2.2-4.2); Glucose 131 mg/dL (74-106); High Density Lipoprotein 92 mg/dL; Potassium 3.9 mmol/L (3.5-5.1); Protein, Total 7.1 g/dL (6.4-8.2); Sodium Level 140 mmol/L (136-145); Triglycerides 94 mg/dL; Very Low Density Lipoprotein 19 mg/dL (5-40)
== END | disposition home or self-care (01) ==
LOC: MTLAB 10:06
PROVIDERS: PCP Family Medicine; Referring Provider Nurse Practitioner Family; Visit Provider Nurse Practitioner Family
DX: E11.9 Type 2 diabetes mellitus without complications (principal); C79.89 Secondary malignant neoplasm of other specified sites; C79.51 Secondary malignant neoplasm of bone; C50.911 Malignant neoplasm of unspecified site of right female breast; C50.912 Malignant neoplasm of unspecified site of left female breast
CPT/HCPCS: 36415; 80053; 80061; 85025; 86300

== ENCOUNTER → 2023-09-10 | Outpatient (CLI) | payer MEDICARE, OTHER, SELFPAY ==
[2023-01-17 10:06] VITALS: BMI 36.6
--- NOTE | 2023-09-10 08:55 | ECHODONC_ITS ---
Reason For Study: SOB Procedure This was a 2D Doppler, Color Flow transthoracic echocardiogram. Myocardial strain analysis was performed in this exam to aid in the assessment of cardiac function. Exam performed in department. Left Ventricle Normal LV size. Left ventricular systolic function is normal. The estimated ejection fraction is 55 %. Stage 1 diastolic dysfunction. No regional wall motion abnormalities noted. Right Ventricle Normal RV size. Normal systolic function. Atria Normal left atrium. Normal right atrium. Mitral Valve Normal mitral valve. There is mild mitral annular calcification. Mild (1+) eccentric mitral valve insufficiency. Tricuspid Valve Normal tricuspid valve. Mild (1+) tricuspid valve insufficiency. Pulmonary artery systolic pressure is 38 mmHg. Aortic Valve Normal aortic valve. Mild (1+) aortic valve insufficiency. Pulmonic Valve Normal pulmonic valve. Great Vessels Normal aortic root. The pulmonary artery is normal size. Normal inferior vena cava. Pericardium/Pleural No pericardial effusion. MMode/2D Measurements & Calculations LVIDd: 4.6 cm IVSd: 1.0 cm Ao root diam: 3.3 cm LVIDs: 2.9 cm LVPWd: 0.86 cm RVDd: 3.7 cm FS: 36.8 % LAV(MOD-bp): 45.8 ml LVAd ap4: 19.3 cm2 SV(MOD-sp4): 28.2 ml LAV(MOD-bp) Indexed: 22.7 ml/m2 LVLd ap4: 6.3 cm LAV(MOD-sp2): 34.1 ml EDV(MOD-sp4): 49.2 ml LAV(MOD-sp4): 54.0 ml EDV(sp4-el): 49.7 ml LVAs ap4: 12.0 cm2 LVLs ap4: 5.8 cm ESV(MOD-sp4): 21.0 ml ESV(sp4-el): 21.1 ml EF(MOD-sp4): 57.3 % EF(sp4-el): 57.5 % SV(sp4-el): 28.6 ml LA A4 area: 20.3 cm2 LA dimension(2D): 4.8 cm RA A4 area: 16.8 cm2 Time Measurements MV dec time: 0.19 sec Doppler Measurements & Calculations MV E max lc: 71.6 cm/sec Lat Peak E' Lc: 11.6 cm/sec Med Peak E' Lc: 4.9 cm/sec MV A max lc: 75.4 cm/sec E/E' lat: 6.2 E/E' med: 14.7 MV E/A: 0.95 Ao V2 max: 138.1 cm/sec LV V1 max: 112.9 cm/sec MV dec slope: 377.6 cm/sec2 Ao max P.6 mmHg LV V1 max P.1 mmHg Ao V2 mean: 106.2 cm/sec Ao mean P.9 mmHg Ao V2 VTI: 31.5 cm PA V2 max: 107.8 cm/sec PI end-d lc: 122.2 cm/sec TR max lc: 290.5 cm/sec TR max P.7 mmHg ECHO/ONC Echo Complete Interpretation Summary Normal LV size. Left ventricular systolic function is normal. The estimated ejection fraction is 55 %. Stage 1 diastolic dysfunction. Mild (1+) eccentric mitral valve insufficiency. Mild (1+) aortic valve insufficiency. The global longitudinal strain is moderately abnormal. The global longitudinal strain = -13.6% (abnormal). Ordering Physician: Xiomara Ramirez Referring Physician: Jb Cast Performed By: Angela Hdez, VI, RVT
== END | disposition home or self-care (01) ==
PROVIDERS: PCP Family Medicine; Referring Provider Nurse Practitioner Family; Visit Provider Nurse Practitioner Family
DX: R06.02 Shortness of breath (principal); C50.919 Malignant neoplasm of unspecified site of unspecified female breast; Z51.81 Encounter for therapeutic drug level monitoring; Z79.899 Other long term (current) drug therapy
CPT/HCPCS: 93306; 93356

== ENCOUNTER 2023-11-30 05:54 | Emergency (ER) | payer MEDICARE, OTHER, SELFPAY ==
[2023-01-17 10:06] VITALS: BMI 36.6
[2023-11-30 05:55] VITALS: BP 147/55; PULSE 93; RESP 18; TEMP 35.6; O2SAT 94; BMI 35.2
--- NOTE | 2023-11-30 06:03 | CT_ITS ---
EXAM: CT ABDOMEN AND PELVIS WITHOUT INTRAVENOUS CONTRAST CLINICAL INDICATION: bilious vomiting TECHNIQUE: Helically acquired images were obtained of the abdomen and pelvis without intravenous contrast. This CT exam was performed using one or more of the following dose reduction techniques: automated exposure control, adjustment of the mA and/or kV according to patient size, and/or use of iterative reconstruction technique. RADIATION DOSE: CTDIvol = 18.36 mGy, DLP = 1105.51 mGy-cm COMPARISON: CT abdomen and pelvis 01/22/2023 FINDINGS: LOWER THORAX: Unremarkable. Lung bases are clear. No cardiomegaly. No significant pericardial effusion. ABDOMEN: LIVER: Indeterminate hypodense lesion in the right hepatic lobe measuring 3 cm. GALLBLADDER AND BILE DUCTS: Cholecystectomy. No intra- or extrahepatic biliary ductal dilation. PANCREAS: Unremarkable. No focal cystic mass. SPLEEN: Unremarkable. Normal size without focal cystic or solid mass. ADRENALS: Stable previously described left adrenal lesion. KIDNEYS AND URETERS: Unremarkable. Normal renal size and position. No hydronephrosis. STOMACH AND BOWEL: Diverticular disease of the colon with no diverticulitis. No stomach or bowel distention. PELVIS: APPENDIX: No evidence of acute appendicitis. BLADDER: Unremarkable. REPRODUCTIVE: Unremarkable as visualized. No mass. ABDOMEN and PELVIS: INTRAPERITONEAL SPACE: Unremarkable. No ascites or other fluid collection. No free air. BONES/JOINTS: Sclerotic lesion in the T7 vertebral body. Degenerative changes of the spine. SOFT TISSUES: Unremarkable. No discrete abdominal or pelvic wall hernia. VASCULATURE: Unremarkable. Abdominal aorta is non-dilated. LYMPH NODES: Unremarkable. No enlarged lymph nodes. CT/Abdomen/Pelvis without Cont IMPRESSION: 1. No acute abnormalities identified in the abdomen/pelvis. 2. Indeterminate hypodense lesion in the right hepatic lobe measuring 3 cm. This does not meet simple cyst criteria, and may indicate metastatic disease. Follow-up hepatic protocol MRI or CT is recommended. 3. Stable previously described left adrenal lesion. 4. Sclerotic lesion in the T7 vertebral body. This likely indicates metastatic disease. Electronically Signed: Rito Kwon MD at 6:58 EST ,
--- NOTE | 2023-11-30 06:04 | ED.VIS.GI ---
HPI HPI - GI History of Present Illness Chief Complaint: Nausea/Vomiting Informant: patient and family Nausea/Vomiting/Emesis GI Symptom: Positive for Nausea and Vomiting Onset: Hours (10) Quality: Positive for - ( Green ) Severity: Severe Diarrhea/Melena/Hematochezia GI Symptom: Negative for Diarrhea, Melena or Hematochezia Associated Symptoms Associated Symptoms: Negative for Dysuria, Frequency or Hematuria Narrative Narrative: 78-year-old female states she started Ozempic injections weekly about 7 or 8 weeks ago, and she has been nauseated almost daily, intermittently, for the past 5 or 6 weeks. For the past 10 hours or so she has been vomiting despite not eating anything this past day, she tried to eat a piece of an orange at 1 point but vomited it up immediately. She denies having any pain with this. She denies any fevers or chills. She has a history of metastatic breast cancer and is on Herceptin, and the daughter states that diarrhea is a daily fact of life, but the patient states she has not had any bowel movements or diarrhea in the past day or so. She is feeling lightheaded, but has had no syncope. She is concerned that this is the medication doing this. She denies any known sick contacts. [facility] Medical History Arthritis Atherosclerotic heart disease of [place] coronary artery without angina pectoris Bilateral malignant neoplasm of breast in female Bone metastases Breast cancer CAD (coronary artery disease) Cancer Candidiasis Cardiology follow-up encounter Chemotherapy induced diarrhea Chemotherapy management, encounter for CPAP (continuous positive airway pressure) dependence Dehydration Diabetes Diabetes mellitus type 2 in obese Diarrhea due to drug Dysuria Electrolyte abnormality Encounter for education Essential hypertension Fracture of hip, right, closed Genetic counseling Heel spur HER2-positive carcinoma of breast High cholesterol History of colon polyps History of DVT (deep vein thrombosis) History of echocardiogram History of left heart catheterization (LHC) (~02/02/21) History of stress test HLD (hyperlipidemia) Hypertension Hypokalemia Liver metastases Mass of left breast 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 Mucositis Non-smoker Nonrheumatic mitral valve regurgitation Nonrheumatic tricuspid (valve) insufficiency Osteoarthritis PORT PLACEMENT Presence of stent in coronary artery (~03/12/12) Pulmonary hypertension Recurrent breast cancer Screening for colon cancer Shortness of breath UTI (urinary tract infection) Home Medications aspirin 81 mg chewable tablet 81 mg PO DAILY 05/24/20 [History Last Taken 1 Week Ago ~01/15/23] ergocalciferol (vitamin D2) 1,250 mcg (50,000 unit) capsule 50,000 unit PO MOFR supplement 05/24/20 [History Last Taken 1 Week Ago ~01/15/23] nitroglycerin 0.4 mg sublingual tablet 0.4 mg sublingual Q5M PRN Cardiac/Chest Pain #25 tabs 07/22/21 [Rx Last Taken Unknown] atorvastatin 20 mg tablet 20 mg PO QPM 10/03/21 [History Last Taken 1 Week Ago ~01/15/23] calcium carbonate 600 mg calcium (1,500 mg) tablet (Calcium) 600 mg PO BID 01/06/22 [History Last Taken 1 Week Ago ~01/15/23] Mastectomy bra #3 ea 11/07/22 [Rx Last Taken Unknown] lidocaine-prilocaine 2.5 %-2.5 % topical cream 1 applic topical ONCE PRN port access 30 days #30 grams 12/18/22 [Rx Last Taken 01/22/23] potassium chloride 10 mEq tablet,extended release(part/cryst) 10 meq PO 4X/DAY 02/07/23 [History Last Taken Unknown] isosorbide mononitrate 30 mg tablet,extended release 24 hr 30 mg PO DAILY #90 tabs 02/13/23 [Rx Last Taken Unknown] hydrochlorothiazide 25 mg tablet 25 tablet PO DAILY 03/29/23 [History Last Taken Unknown] metformin 625 mg tablet 625 mg PO BID 03/29/23 [History Last Taken Unknown] omeprazole 20 mg capsule,delayed release 20 mg PO DAILY 03/29/23 [History Last Taken Unknown] clopidogrel 75 mg tablet 75 mg PO DAILY #90 tabs 04/16/23 [Rx Last Taken Unknown] Breast prosthesis (left) #1 ea 08/27/23 [Rx Last Taken Unknown] Breast prosthesis (right) #3 ea 08/27/23 [Rx Last Taken Unknown] semaglutide 0.25 mg or 0.5 mg (2 mg/3 mL) subcutaneous pen injector (Ozempic) 0.5 mg subcut QWEEK 10/29/23 [History Last Taken Unknown] metoprolol tartrate 50 mg tablet 50 mg PO BID #180 tabs 11/21/23 [Rx Last Taken Unknown] ondansetron 8 mg disintegrating tablet 8 mg PO Q8H PRN nausea and vomiting #20 tabs 11/30/23 [Rx Last Taken Unknown] Allergy/AdvReac Type Severity Reaction Status Date / Time iodine Allergy Severe Rash Verified 11/30/23 06:06 povidone-iodine AdvReac Severe Itching Verified 11/30/23 06:06 [From Betadine] pravastatin sodium AdvReac Severe LEG CRAMPS Verified 11/30/23 06:06 [From Pravachol] rosuvastatin calcium AdvReac Severe LEG CRAMPS Verified 11/30/23 06:06 [From Crestor] simvastatin AdvReac Severe LEG CRAMPS Verified 11/30/23 06:06 soap [From Betadine] AdvReac Severe Itching Verified 11/30/23 06:06 ramipril AdvReac Intermediate coughing Verified 11/30/23 06:06 Family History Sister Pancreatic cancer Diabetes Heart disease Leukemia Breast cancer Hypertension Brother Diabetes Bone cancer Heart disease Hypertension CVA (cerebral vascular accident) Father No problems noted. Surgical History History of bilateral mastectomy History of cardiac catheterization History of carpal tunnel surgery History of cholecystectomy History of colonoscopy History of coronary artery bypass graft x 3 (~02/09/21) History of knee joint replacement History of right breast biopsy History of surgery Hx of colonoscopy Postsurgical percutaneous transluminal coronary angioplasty (PTCA) status Presence of coronary angioplasty implant and graft (~03/12/12) S/P coronary artery bypass graft x 3 (~02/09/21) Social History Smoking Status: Never smoker alcohol intake: never substance use type: does not use caffeine: Yes Type: tea Number of servings: 1 ROS ROS ED Constitutional Constitutional ED: Reports weakness; Denies chills or fever(s) Eyes Eyes: Denies change in vision or diplopia ENT ENT ED: Denies rhinorrhea or sore throat Cardiovascular Cardiovascular: Reports lightheadedness; Denies chest pain, palpitations or syncope Respiratory/Chest Respiratory/Chest: Denies cough or dyspnea Gastrointestinal Gastrointestinal: Reports nausea and vomiting; Denies abdominal pain, diarrhea, hematemesis, hematochezia or melena Genitourinary Genitourinary ED: Denies dysuria or hematuria Musculoskeletal Musculoskeletal: Denies back pain or neck pain Integumentary Denies abscess or rash Neurologic Neurologic: Denies headache(s), paresthesias or weakness Psychiatric Psychiatric: Denies anxiety or suicidal thoughts EXAM Physical Exam Const Vital Signs: 11/30/23 05:55 Temperature 96.1 F L Temperature Source Temporal Pulse Rate 93 Respiratory Rate 18 Blood Pressure 147/55 H Blood Pressure Mean 85 Pulse Ox 94 Oxygen Delivery Method Room Air Positive well nourished and well developed General Appearance ED: well developed and NAD HEENT Reports moist mucous membranes normocephalic and atraumatic Eyes PERRL and EOMs intact bilaterally Neck full ROM and supple Resp normal respiratory effort and clear to auscultation bilaterally Cardio regular rate, regular rhythm and no murmurs Rate: Negative for tachycardic GI non-tender and non-distended Auscultation: hypoactive bowel sounds Palpation: soft Back/Spine no CVA tenderness General Back: other FROM Extremity normal to inspection General Extremety ED: Negative for edema, pulses abnormal or tenderness General Extremity: Negative for edema or pulses abnormal Neuro oriented x3, CN's II-XII intact bilaterally and no sensory deficits noted Sensorium / Orientation: awake and alert Motor Exam: strength 5/5 throughout Psych mental status grossly normal and thought process normal Skin no rashes or lesions noted and no wounds MDM MDM MDM Narrative Medical decision making narrative: Differential here includes a viral illness which is highly prevalent in the community right now, multiple causes, in addition to medication side effect certainly are possible, but given that she has hypoactive bowel sounds and a history of breast cancer with metastases to the liver and other areas, stage IV, I think in addition to getting labs and hydrating her and treating her symptoms, a CT is warranted in order to make sure she does not have a bowel obstruction or other organic intra-abdominal etiology given that she is suggesting that the vomiting is bilious. Acute coronary syndrome with atypical presentation in an older diabetic female is also in the differential diagnosis, but on my interpretation her EKG is normal, and a high-sensitivity troponin is also within normal limits, arguing against this after 10 hours of symptoms. Labs are reviewed and unremarkable except for mild hypokalemia likely due to GI losses but not necessarily low enough to require emergent replacement, and slightly higher total bilirubin compared with her prior but the rest of her liver enzymes are normal. This is probably related to her metastatic disease to the liver which is already known. I reviewed the CT images and report which I agree with, it is negative for small bowel obstruction or anything else acute. No known sequela of metastatic disease are noted on the CT. Patient is doing much better after IV fluids and Zofran. Tolerating oral fluids. Will discharge her home with Zofran and she can follow-up and talk with her doctor about whether they are going to change any of her medications which may or may not be related to her vomiting this morning. Lab Data Attestation: I reviewed the patient's lab results. Labs: Laboratory Results - last 24 hr 11/30/23 06:25 WBC 9.1 RBC 4.66 Hgb 13.5 Hct 41.8 MCV 89.7 MCH 29.0 MCHC 32.3 RDW Std Deviation 43.1 RDW Coeff of [place]uel 13.2 Plt Count 319 MPV 10.0 Immature Gran % (Auto) 0.600 Neut % (Auto) 75.4 H Lymph % (Auto) 14.7 L [place] % (Auto) 6.3 Eos % (Auto) 2.8 Baso % (Auto) 0.2 Absolute Neuts (auto) 6.8 Absolute Lymphs (auto) 1.33 Nucleated RBC % 0 Sodium 140 Potassium 3.4 L Chloride 101 Carbon Dioxide 31.0 Anion Gap 8 BUN 13 Creatinine 0.88 Estim Creat Clear Calc 48.17 Est GFR (MDRD) Af Amer 80 Est GFR (MDRD) Non-Af 66 BUN/Creatinine Ratio 14.7 Glucose 189 H Calcium 9.4 Total Bilirubin 1.80 H AST 23 ALT 19 Alkaline Phosphatase 78 Troponin I High Sens 15 Total Protein 7.4 Albumin 3.3 Globulin 4.1 Albumin/Globulin Ratio 0.8 L Lipase 25 Radiography Diagnostic Testing: Clinical Impression(s) from Imaging Studies Abdomen/Pelvis CT 11/30/23 06:03 IMPRESSION: 1. No acute abnormalities identified in the abdomen/pelvis. 2. Indeterminate hypodense lesion in the right hepatic lobe measuring 3 cm. This does not meet simple cyst criteria, and may indicate metastatic disease. Follow-up hepatic protocol MRI or CT is recommended. 3. Stable previously described left adrenal lesion. 4. Sclerotic lesion in the T7 vertebral body. This likely indicates metastatic disease. Electronically Signed: Rito Kwon MD at 6:58 EST , Rhythm Strip Rhythm Strip: Sinus Rhythm Rate: 90 Ectopy: None EKG Initial EKG: Attestation: I personally reviewed and interpreted this EKG as follows: Interpretation: Sinus Rhythm and No Acute Injury Pattern Comments: Normal EKG Discharge Plan Triage Chief Complaint: Nausea/Vomiting ED Provider: Uday Goode Dx/Rx/DC Orders Clinical Impression: Hypokalemia due to excessive gastrointestinal loss of potassium, Bilateral malignant neoplasm of breast in female, Vomiting Instructions: ED Hypokalemia, ED Vomiting (Adult) Prescriptions: Continued ondansetron 8 mg tablet,disintegrating 8 mg PO Q8H PRN (Reason: nausea and vomiting) Qty: 20 0RF No Action aspirin 81 mg tablet,chewable 81 mg PO DAILY nitroglycerin 0.4 mg tablet, sublingual 0.4 mg SL Q5M PRN (Reason: Cardiac/Chest Pain) Qty: 25 3RF calcium carbonate [Calcium 600] 600 mg calcium (1,500 mg) tablet 600 mg PO BID atorvastatin 20 mg tablet 20 mg PO QPM (DME) Mastectomy bra See Rx Instructions .Route .MEDSUPPLY Qty: 3 3RF Rx Instructions: As directed lidocaine-prilocaine 2.5-2.5 % cream 1 applic topical ONCE PRN (Reason: port access) 30 Days Qty: 30 2RF potassium chloride 10 MEQ tablet,ER particles/crystals 10 meq PO 4X/DAY omeprazole 20 mg capsule,delayed release(DR/EC) 20 mg PO DAILY hydrochlorothiazide 25 mg tablet 25 tablet PO DAILY metformin 625 mg tablet 625 mg PO BID (DME) Breast prosthesis (left) See Rx Instructions .Route .MEDSUPPLY Qty: 1 0RF Rx Instructions: As directed (DME) Breast prosthesis (right) See Rx Instructions .Route .MEDSUPPLY Qty: 3 3RF Rx Instructions: As directed Ozempic 0.25 mg or 0.5 mg (2 mg/3 mL) pen injector 0.5 mg subcut QWEEK ergocalciferol (vitamin D2) 1,250 mcg (50,000 unit) capsule 50,000 unit PO MOFR Patient Comments: Vitamin D supplement TAKES 1 TAB 2X PER WEEK TAKES SUNDAY AND SUNDAY--supplement isosorbide mononitrate 30 mg tablet extended release 24 hr 30 mg PO DAILY Qty: 90 4RF clopidogrel 75 mg tablet 75 mg PO DAILY Qty: 90 3RF metoprolol tartrate 50 mg tablet 50 mg PO BID Qty: 180 3RF Primary Care Provider: Jb Cast Referrals: Jb Cast MD [Primary Care Provider] - As soon as possible Disposition Disposition: Home, Self Care
[2023-11-30] MEDS: Ondansetron 4 MG/2 ML Vial IV (06:19)
[2023-11-30] MEDS: 0.9% Normal Saline (1000mL) 1,000 ML 125 ML IV (06:21)
[2023-11-30 06:31] LABS: Absolute Lymphocyte Count 1.33 X10^3/uL (0.83-4.51); Absolute Neutrophil Count 6.8 X10^3/uL (2.0-7.7); Basophil# 0.02 X10^3/uL; Basophil% 0.2 % (0-1); Eosinophil# 0.25 X10^3/uL; Eosinophils% 2.8 % (0-5); Hematocrit 41.8 % (37-47); Hemoglobin 13.5 g/dL (12.0-15.0); Lymphocyte # 1.33 X10^3/ul (0.83-4.51); Lymphocyte % 14.7 % (19-41); Mean Corp Hgb Conc 32.3 g/dL (32-36); Mean Corpuscular Volume 89.7 fL (81-99); Monocyte# 0.57 X10^3/uL; Monocyte% 6.3 % (0-10); NRBC Flagged by Analyzer 0 % (0-5); Neutrophil # 6.83 X10^3/uL (2.7-7.7); Neutrophil % 75.4 % (47-70); POSITIVE COUNT YES; RBC Distribution Width CV 13.2 % (11.6-14.6); RBC Distribution Width SD 43.1 fl (35.1-43.9); Red Blood Count 4.66 M/mm3 (4.2-5.4); White Blood Count 9.1 K/mm3 (4.4-11.0)
[2023-11-30 06:43] LABS: Differential Indicated SCAN CRITERIA MET
[2023-11-30 06:51] LABS: ALB/GLOB Ratio 0.8 RATIO (0.9-2.4); AST(SGOT) 23 U/L (15-37); Alanine Aminotransfer ALT/SGPT 19 U/L (13-56); Albumin, Serum 3.3 g/dL (3.2-5.0); Alkaline Phosphatase 78 U/L (45-117); Anion Gap 8 (5-15); BUN 13 mg/dL (7-18); BUN/Creat Ratio 14.7 RATIO (10-20); Calcium,Total 9.4 mg/dL (8.5-10.1); Chloride 101 mmol/L (98-107); Creatinine, Serum 0.88 mg/dL (0.55-1.02); EST Glomerular Filtration Rate 66 mL/min (>60); Est Glom Filt Rate - Afr Amer 80 mL/min (>60); Estimated Creatinine Clearance 48.17 ml/min; Globulin 4.1 g/dL (2.2-4.2); Glucose 189 mg/dL (74-106); Lipase 25 U/L (13-75); Potassium 3.4 mmol/L (3.5-5.1); Protein, Total 7.4 g/dL (6.4-8.2); Sodium Level 140 mmol/L (136-145); Troponin-I HS 15 pg/mL (3.0-54.0)
[2023-11-30 07:16] LABS: Platelet Estimate ADEQUATE (ADEQ)
== END 2023-11-30 07:34 | disposition home or self-care (01) ==
LOC: ED 07:11
PROVIDERS: Emergency Provider Emergency Medicine; PCP Family Medicine; Visit Provider Emergency Medicine
DX: E87.6 Hypokalemia (principal); C50.911 Malignant neoplasm of unspecified site of right female breast; C50.912 Malignant neoplasm of unspecified site of left female breast; E11.9 Type 2 diabetes mellitus without complications; R11.2 Nausea with vomiting, unspecified; R19.7 Diarrhea, unspecified; I10 Essential (primary) hypertension; E78.00 Pure hypercholesterolemia, unspecified; Z79.82 Long term (current) use of aspirin; Z79.02 Long term (current) use of antithrombotics/antiplatelets; Z79.84 Long term (current) use of oral hypoglycemic drugs; Z79.85 Long-term (current) use of injectable non-insulin antidiabetic drugs; Z79.899 Other long term (current) drug therapy; Z95.1 Presence of aortocoronary bypass graft; Z95.5 Presence of coronary angioplasty implant and graft
CPT/HCPCS: 74176; 80053; 83690; 84484; 85025; 93005; 96361; 96374; 99282; J7030; A4216; J2405

== ENCOUNTER 2023-12-19 08:04 | Emergency (ER) | payer MEDICARE, OTHER, SELFPAY ==
[2023-01-17 10:06] VITALS: BMI 36.6
[2023-12-19 08:05] VITALS: BP 199/100; PULSE 86; RESP 14; TEMP 36.3; O2SAT 99; BMI 35.6
--- NOTE | 2023-12-19 08:21 | EDS_ITS ---
HPI History of Present Illness Chief Complaint: Upper Extremity Injury Detail of Chief Complaint: Left shoulder/arm pain Informant: patient Onset/Context/Timing Onset: Days (Onset Sunday) Context: Sudden Onset Timing: Continuous Quality of Pain: - (Pain) Location: Anterior left chest and left shoulder region Current Severity: Mild Maximum Severity: Moderate Worsened by: Movement Relieved by: Lying on Associated Symptoms Associated Symptoms: Negative for Parasthesia, Weakness or Loss of Funtion Narrative Narrative: Patient is a 78-year-old [id number] woman who presents with left anterior chest pain, left shoulder and left arm pain that started Sunday. Pain constant. This pain is similar to when she had angina requiring multiple stents 7 years ago. She does report improvement if she lies on it. She reports increased pain with movement. There is no history of trauma or overuse. She denies associated symptoms. She is status post three-vessel bypass surgery 3 years ago at [facility]. She does have a history of metastatic breast cancer. She has a remote history of DVT. She denies swelling of her left upper extremity, discoloration or difference in size. She denies pleuritic pain. She denies leg pain, asymmetry or discoloration. She is on a baby aspirin. She is on no anticoagulant. Prior similar symptoms: Yes Recent Illness/Hospitalization: No PFSH PFSH Medical History Arthritis Atherosclerotic heart disease of [place] coronary artery without angina pectoris Bilateral malignant neoplasm of breast in female Bone metastases Breast cancer CAD (coronary artery disease) Cancer Candidiasis Cardiology follow-up encounter Chemotherapy induced diarrhea Chemotherapy management, encounter for CPAP (continuous positive airway pressure) dependence Dehydration Diabetes Diabetes mellitus type 2 in obese Diarrhea due to drug Dysuria Electrolyte abnormality Encounter for education Essential hypertension Fracture of hip, right, closed Genetic counseling Heel spur HER2-positive carcinoma of breast High cholesterol History of colon polyps History of DVT (deep vein thrombosis) History of echocardiogram History of left heart catheterization (LHC) (~02/02/21) History of stress test HLD (hyperlipidemia) Hypertension Hypokalemia Liver metastases Mass of left breast 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 Mucositis Non-smoker Nonrheumatic mitral valve regurgitation Nonrheumatic tricuspid (valve) insufficiency Osteoarthritis PORT PLACEMENT Presence of stent in coronary artery (~03/12/12) Pulmonary hypertension Recurrent breast cancer Screening for colon cancer Shortness of breath UTI (urinary tract infection) Home Medications aspirin 81 mg chewable tablet 81 mg PO DAILY 05/24/20 [History Last Taken 1 Week Ago ~01/15/23] ergocalciferol (vitamin D2) 1,250 mcg (50,000 unit) capsule 50,000 unit PO MOFR supplement 05/24/20 [History Last Taken 1 Week Ago ~01/15/23] nitroglycerin 0.4 mg sublingual tablet 0.4 mg sublingual Q5M PRN Cardiac/Chest Pain #25 tabs 07/22/21 [Rx Last Taken Unknown] atorvastatin 20 mg tablet 20 mg PO QPM 10/03/21 [History Last Taken 1 Week Ago ~01/15/23] calcium carbonate 600 mg calcium (1,500 mg) tablet (Calcium) 600 mg PO BID 01/06/22 [History Last Taken 1 Week Ago ~01/15/23] Mastectomy bra #3 ea 11/07/22 [Rx Last Taken Unknown] lidocaine-prilocaine 2.5 %-2.5 % topical cream 1 applic topical ONCE PRN port access 30 days #30 grams 12/18/22 [Rx Last Taken 01/22/23] potassium chloride 10 mEq tablet,extended release(part/cryst) 10 meq PO 4X/DAY 02/07/23 [History Last Taken Unknown] isosorbide mononitrate 30 mg tablet,extended release 24 hr 30 mg PO DAILY #90 tabs 02/13/23 [Rx Last Taken Unknown] hydrochlorothiazide 25 mg tablet 25 tablet PO DAILY 03/29/23 [History Last Taken Unknown] metformin 625 mg tablet 625 mg PO BID 03/29/23 [History Last Taken Unknown] omeprazole 20 mg capsule,delayed release 20 mg PO DAILY 03/29/23 [History Last Taken Unknown] clopidogrel 75 mg tablet 75 mg PO DAILY #90 tabs 04/16/23 [Rx Last Taken Unknown] Breast prosthesis (left) #1 ea 08/27/23 [Rx Last Taken Unknown] Breast prosthesis (right) #3 ea 08/27/23 [Rx Last Taken Unknown] metoprolol tartrate 50 mg tablet 50 mg PO BID #180 tabs 11/21/23 [Rx Last Taken Unknown] ondansetron 8 mg disintegrating tablet 8 mg PO Q8H PRN nausea and vomiting #20 tabs 11/30/23 [Rx Last Taken Unknown] hydrocodone-acetaminophen 5-325mg 5mg-325mg 1 tab PO Q6H PRN PRN Pain 3 days #10 TABLETS 12/19/23 [Rx Last Taken Unknown] Allergy/AdvReac Type Severity Reaction Status Date / Time iodine Allergy Severe Rash Verified 12/19/23 08:07 povidone-iodine AdvReac Severe Itching Verified 12/19/23 08:07 [From Betadine] pravastatin sodium AdvReac Severe LEG CRAMPS Verified 12/19/23 08:07 [From Pravachol] rosuvastatin calcium AdvReac Severe LEG CRAMPS Verified 12/19/23 08:07 [From Crestor] simvastatin AdvReac Severe LEG CRAMPS Verified 12/19/23 08:07 soap [From Betadine] AdvReac Severe Itching Verified 12/19/23 08:07 ramipril AdvReac Intermediate coughing Verified 12/19/23 08:07 Family History Sister Pancreatic cancer Diabetes Heart disease Leukemia Breast cancer Hypertension Brother Diabetes Bone cancer Heart disease Hypertension CVA (cerebral vascular accident) Father No problems noted. Surgical History History of bilateral mastectomy History of cardiac catheterization History of carpal tunnel surgery History of cholecystectomy History of colonoscopy History of coronary artery bypass graft x 3 (~02/09/21) History of knee joint replacement History of right breast biopsy History of surgery Hx of colonoscopy Postsurgical percutaneous transluminal coronary angioplasty (PTCA) status Presence of coronary angioplasty implant and graft (~03/12/12) S/P coronary artery bypass graft x 3 (~02/09/21) Social History Smoking Status: Never smoker alcohol intake: never substance use type: does not use caffeine: Yes Type: tea Number of servings: 1 ROS ROS ED Constitutional Constitutional ED: Denies chills, fever(s), subjective, sweats or weight loss Eyes Eyes: Denies blurry vision or change in vision ENT ENT ED: Denies ear pain, rhinorrhea or sore throat Cardiovascular Cardiovascular: Reports chest pain; Denies orthopnea, palpitations, paroxysmal nocturnal dyspnea or racing heartbeat Respiratory/Chest Respiratory/Chest: Denies cough, dyspnea, dyspnea on exertion, orthopnea or paroxysmal nocturnal dyspnea Gastrointestinal Gastrointestinal: Denies abdominal pain, nausea or vomiting Musculoskeletal Musculoskeletal: Denies back pain or neck pain Integumentary Denies rash Neurologic Neurologic: Denies headache(s) or paresthesias Hematologic/Lymphatic Hematologic/Lymphatic: Denies easy bleeding or easy bruising EXAM Physical Exam Const Vital Signs: 12/19/23 08:05 Temperature 97.4 F L Temperature Source Temporal Pulse Rate 86 Respiratory Rate 14 Blood Pressure 199/100 H Blood Pressure Mean 133 Pulse Ox 99 Oxygen Delivery Method Room Air Positive well nourished and well developed General Appearance ED: well developed and NAD; Negative for cyanotic or diaphoretic HEENT Reports moist mucous membranes normocephalic and atraumatic Eyes PERRL and EOMs intact bilaterally Eyes Narrative: Ears normal. Nares patent. Neck full ROM and supple Neck Narrative: There is no JVD. Trachea is midline. Chest Wall inspection of chest normal and palpation of chest normal Resp normal respiratory effort and clear to auscultation bilaterally Cardio regular rate, regular rhythm, S1 normal heart sound, S2 normal heart sound and no murmurs GI non-tender, non-distended and no masses GI Narrative: There is no palpable pulsatile mass. There is no abdominal bruit. Auscultation: hypoactive bowel sounds Palpation: soft Back/Spine no CVA tenderness Extremity normal to inspection Extremity Narrative: Patient motion is limited due to pain. There is reproducible pain over the region of the bicipital groove. There is also pain involving the joint. There is no pain ovation over the clavicle or AC joint. Axillary, median, radial and ulnar function intact. There is no pain outpatient over the lateral or medial epicondyle or radial head. There is no pain ovation over the wrist, metacarpal bones or phalanges. Passive external rotation causes her discomfort in the shoulder. Passive abduction past 90 degrees causes her discomfort in the shoulder. Neuro oriented x3, CN's II-XII intact bilaterally and moves all extremities Neuro Narrative: Documented under the extremity portion of the medical record. Sensorium / Orientation: alert Psych mental status grossly normal Skin General Skin Exam: Negative for petechiae Lesions: no lesions Rashes: no rashes Trauma: no lacerations or abrasions MDM MDM MDM Narrative Medical decision making narrative: Since patient had similar discomfort prior to cardiac catheterization with placement of multiple stents obtain EKG and troponin since her pain has been constant since the weekend. Suspect this is musculoskeletal. X-ray was obtained to assess for degenerative changes. Doubt fracture. Lab Data Attestation: I reviewed the patient's lab results. Lab results narrative: Troponin is 12. With 4 to 5 days of continuous pain and a normal troponin with a unremarkable EKG there is no concern that this is atypical presentation for cardiac disease. Will treat her shoulder pain with opiate analgesics since NSAIDs are contraindicated. Radiography Chest X-Ray - ED: Read by ED Physician (4 view x-ray of the left shoulder was independent reviewed interpreted by me as negative for any acute process. There is no fracture, subluxation or dislocation. There is no significant arthritic changes noted. X-ray was interpreted at 0910.) EKG Initial EKG: Attestation: I personally reviewed and interpreted this EKG as follows: Interpretation: Sinus Rhythm (Rate is 83. Patient has an intraventricular conduction delay. CA interval is 158 ms. QRS duration 94 ms. QT duration 378 ms. [place] is normal. There is decreased anterior force noted.) Prior: Unchanged Discharge Plan Triage Chief Complaint: Upper Extremity Injury ED Provider: Devonte Priest Dx/Rx/DC Orders Clinical Impression: Arthralgia of left shoulder region, HER2-positive carcinoma of breast, Diabetes mellitus type 2 in obese, Obesity (BMI 30-39.9), History of coronary artery bypass graft x 3, HLD (hyperlipidemia) Instructions: ED Shoulder Pain, Uncertain Cause Prescriptions: New hydrocodone-acetaminophen [hydrocodone-acetaminophen] 5-325 mg tablet 1 tab PO Q6H PRN PRN (Reason: Pain) 3 Days Qty: 10 0RF No Action aspirin 81 mg tablet,chewable 81 mg PO DAILY nitroglycerin 0.4 mg tablet, sublingual 0.4 mg SL Q5M PRN (Reason: Cardiac/Chest Pain) Qty: 25 3RF calcium carbonate [Calcium 600] 600 mg calcium (1,500 mg) tablet 600 mg PO BID atorvastatin 20 mg tablet 20 mg PO QPM (DME) Mastectomy bra See Rx Instructions .Route .MEDSUPPLY Qty: 3 3RF Rx Instructions: As directed lidocaine-prilocaine 2.5-2.5 % cream 1 applic topical ONCE PRN (Reason: port access) 30 Days Qty: 30 2RF potassium chloride 10 MEQ tablet,ER particles/crystals 10 meq PO 4X/DAY omeprazole 20 mg capsule,delayed release(DR/EC) 20 mg PO DAILY hydrochlorothiazide 25 mg tablet 25 tablet PO DAILY metformin 625 mg tablet 625 mg PO BID (DME) Breast prosthesis (left) See Rx Instructions .Route .MEDSUPPLY Qty: 1 0RF Rx Instructions: As directed (DME) Breast prosthesis (right) See Rx Instructions .Route .MEDSUPPLY Qty: 3 3RF Rx Instructions: As directed ergocalciferol (vitamin D2) 1,250 mcg (50,000 unit) capsule 50,000 unit PO MOFR Patient Comments: Vitamin D supplement TAKES 1 TAB 2X PER WEEK TAKES SUNDAY AND SUNDAY--supplement ondansetron 8 mg tablet,disintegrating 8 mg PO Q8H PRN (Reason: nausea and vomiting) Qty: 20 0RF isosorbide mononitrate 30 mg tablet extended release 24 hr 30 mg PO DAILY Qty: 90 4RF clopidogrel 75 mg tablet 75 mg PO DAILY Qty: 90 3RF metoprolol tartrate 50 mg tablet 50 mg PO BID Qty: 180 3RF Primary Care Provider: Jb Cast Referrals: Jb Cast MD [Primary Care Provider] - 3-5 Days if not improving Disposition Disposition: Home, Self Care
--- NOTE | 2023-12-19 08:35 | RAD_ITS ---
STUDY: X-RAY - LEFT SHOULDER REASON FOR EXAM: Female, 78 years old. One week history of pain. No known injury. TECHNIQUE: 4 view(s) of the shoulder. COMPARISON: None. FINDINGS: Normal glenohumeral articulation. There is degenerative arthrosis of the acromioclavicular joint without inferior osseous spur formation. Normal acromion. Normal humeral head and visualized proximal humerus. The soft tissue structures are unremarkable. Normal visualized pulmonary apex. RAD/Shoulder min 2 Views IMPRESSION: Mild degree of osteoarthritis. No fracture or dislocation is seen. Electronically Signed: Gabriel Tabor MD at 9:07 EST ,
[2023-12-19 08:55] LABS: Troponin-I HS 12 pg/mL (3.0-54.0)
[2023-12-19 09:05] VITALS: BP 144/73; PULSE 84; RESP 18; O2SAT 94
[2023-12-19 09:19] VITALS: BP 130/64; PULSE 78; RESP 16; TEMP 36.4; O2SAT 99
== END 2023-12-19 09:23 | disposition home or self-care (01) ==
PROVIDERS: Emergency Provider Emergency Medicine; PCP Family Medicine; Visit Provider Emergency Medicine
DX: M25.512 Pain in left shoulder (principal); C50.919 Malignant neoplasm of unspecified site of unspecified female breast; E11.9 Type 2 diabetes mellitus without complications; R07.89 Other chest pain; M79.602 Pain in left arm; E66.9 Obesity, unspecified; I25.10 Atherosclerotic heart disease of native coronary artery without angina pectoris; E78.5 Hyperlipidemia, unspecified; Z79.82 Long term (current) use of aspirin; Z79.84 Long term (current) use of oral hypoglycemic drugs; Z79.01 Long term (current) use of anticoagulants; Z79.899 Other long term (current) drug therapy; Z86.718 Personal history of other venous thrombosis and embolism; Z95.1 Presence of aortocoronary bypass graft; Z95.5 Presence of coronary angioplasty implant and graft
CPT/HCPCS: 73030; 84484; 93005; 99282; A4216

== ENCOUNTER → 2024-01-24 | Outpatient (CLI) | payer MEDICARE, OTHER, SELFPAY ==
[2023-01-17 10:06] VITALS: BMI 36.6
--- NOTE | 2024-01-24 09:45 | RAD_ITS ---
STUDY: PORTOGRAM. REASON FOR EXAM: Female, 78 years old. PROBLEMS WITH PORT FLUOROSCOPY TIME (if supplied): ( 44 seconds ) minutes/seconds. 8.59 mGy TECHNIQUE: Under direct fluoroscopic guidance, contrast was injected into the indwelling portacatheter. Free flow of contrast. No evidence obstruction. COMPARISON: None. RAD/Con Inj Chase Eval CVP Inc Fluro IMPRESSION: Normal portogram. Electronically Signed: Gabriel Tabor MD at 12:28 EST ,
[2024-01-24] MEDS: 0.9% Saline Lock 10 ML Syringe IV (10:00)
== END | disposition home or self-care (01) ==
PROVIDERS: PCP Family Medicine; Referring Provider Internal Medicine Hematology & Oncology; Visit Provider Internal Medicine Hematology & Oncology
DX: Z45.2 Encounter for adjustment and management of vascular access device (principal)
CPT/HCPCS: 36598; Q9967; A4216

== ENCOUNTER → 2024-02-26 | Outpatient (CLI) | payer MEDICARE, OTHER, SELFPAY ==
[2023-01-17 10:06] VITALS: BMI 36.6
--- NOTE | 2024-02-26 10:46 | ECHOLONC_ITS ---
Reason For Study: DRUG LEVEL MONITORING Procedure This was a limited 2D transthoracic echocardiogram. Myocardial strain analysis was performed in this exam to aid in the assessment of cardiac function. Exam performed in department. Left Ventricle Normal LV size. The left ventricular ejection fraction is 55 %. No regional wall motion abnormalities noted. Right Ventricle Normal RV size. Normal systolic function. Atria The left atrium is mildly enlarged. The right atrium is mildly enlarged. Mitral Valve Normal mitral valve. Mild (1+) eccentric mitral valve insufficiency. Tricuspid Valve Normal tricuspid valve. Mild (1+) tricuspid valve insufficiency. Pulmonary artery systolic pressure is 30 mmHg. Aortic Valve Trisinus/trileaflet aortic valve. MMode/2D Measurements & Calculations LVIDd: 4.5 cm IVSd: 0.96 cm Ao root diam: 3.5 cm LVIDs: 3.0 cm LVPWd: 1.1 cm FS: 34.7 % LAV(MOD-bp): 73.6 ml LVAd ap4: 21.9 cm2 LVAd ap2: 23.4 cm2 LAV(MOD-bp) Indexed: 36.9 ml/m2 LVLd ap4: 6.5 cm LVLd ap2: 7.0 cm LAV(MOD-sp2): 53.7 ml EDV(MOD-sp4): 63.6 ml EDV(MOD-sp2): 67.6 ml LAV(MOD-sp4): 75.4 ml EDV(sp4-el): 62.2 ml EDV(sp2-el): 66.5 ml LVAs ap4: 12.8 cm2 LVAs ap2: 13.4 cm2 LVLs ap4: 5.9 cm LVLs ap2: 6.0 cm ESV(MOD-sp4): 24.3 ml ESV(MOD-sp2): 27.7 ml ESV(sp4-el): 23.6 ml ESV(sp2-el): 25.3 ml EF(MOD-sp4): 61.7 % EF(MOD-sp2): 59.0 % EF(sp4-el): 62.0 % SV(MOD-sp4): 39.3 ml SV(MOD-sp2): 39.9 ml SV(sp4-el): 38.6 ml LA A4 area: 24.7 cm2 LA dimension(2D): 4.7 cm RA A4 area: 23.0 cm2 TAPSE: 1.3 cm Time Measurements MV dec time: 0.19 sec Doppler Measurements & Calculations MV E max lc: 96.5 cm/sec Lat Peak E' Lc: 11.0 cm/sec Med Peak E' Lc: 8.2 cm/sec MV A max lc: 76.1 cm/sec E/E' lat: 8.8 E/E' med: 11.7 MV E/A: 1.3 Ao V2 max: 118.5 cm/sec LV V1 max: 86.8 cm/sec MV dec slope: 510.9 cm/sec2 Ao max P.6 mmHg LV V1 max P.0 mmHg Ao V2 mean: 94.0 cm/sec LV V1 mean P.7 mmHg Ao mean P.8 mmHg LV V1 mean: 61.9 cm/sec Ao V2 VTI: 25.7 cm LV V1 VTI: 17.1 cm AV (velocity ratio): 0.67 PA V2 max: 100.6 cm/sec PI end-d lc: 91.0 cm/sec TR max lc: 259.8 cm/sec TR max P.0 mmHg ECHO/ONC Echo, Limited Study Interpretation Summary Normal LV size. The left ventricular ejection fraction is 55 %. Pulmonary artery systolic pressure is 30 mmHg. The global longitudinal strain is mildly abnormal. The global longitudinal stra in = -14.2% (abnormal). The global longitudinal strain has worsened. Compared to previous s betty, the left ventricular systolic function is the same.. Ordering Physician: Jessica Ochoa Referring Physician: Jb Cast Performed By: Michelle Magallanes RDCS
== END | disposition home or self-care (01) ==
LOC: CVS 10:45
PROVIDERS: PCP Family Medicine; Referring Provider Internal Medicine Hematology & Oncology; Visit Provider Internal Medicine Hematology & Oncology
DX: C79.89 Secondary malignant neoplasm of other specified sites (principal)
CPT/HCPCS: 93308; 93356

== ENCOUNTER → 2024-03-05 | Outpatient (CLI) | payer MEDICARE, OTHER, SELFPAY ==
[2023-01-17 10:06] VITALS: BMI 36.6
[2024-03-05 18:15] LABS: Uric Acid 7.4 mg/dL (2.6-6.0)
== END | disposition home or self-care (01) ==
LOC: MFPLAB 16:43
PROVIDERS: PCP Family Medicine; Visit Provider Family Medicine
DX: M10.9 Gout, unspecified (principal)
CPT/HCPCS: 36415; 84550

== ENCOUNTER 2024-03-15 08:30 | Emergency (ER) | payer MEDICARE, OTHER, SELFPAY ==
[2023-01-17 10:06] VITALS: BMI 36.6
[2024-03-15 08:31] VITALS: BP 189/78; PULSE 80; RESP 18; TEMP 36.4; O2SAT 96; BMI 35.9
--- NOTE | 2024-03-15 08:36 | RAD_ITS ---
INDICATION: injury EXAMINATION/TECHNIQUE: X-RAY - LEFT XR Wrist Min 3 Views 3 VIEWS COMPARISON: No relevant prior comparison study available FINDINGS: SOFT TISSUES: No soft tissue swelling or gas. No radiopaque foreign body. BONES/JOINTS: No evidence of acute fracture or dislocation. Normal alignment. Severe degenerative arthrosis of the carpometacarpal joint of the thumb. No sclerotic or destructive changes observed. RAD/Wrist min 3 Views IMPRESSION: Degenerative arthrosis. No evidence of acute fracture. Electronically Signed: Adalid Salas MD at 9:41 EDT ,
--- NOTE | 2024-03-15 08:44 | CT_ITS ---
INDICATION: head trauma EXAMINATION: CT BRAIN - CT Head or Brain W/O Contrast Injection TECHNIQUE: Multiple axial images were obtained of the head without intravenous contrast. A radiation dose optimization technique was used for this scan. IV Contrast dosage and agent: None. RADIATION DOSAGE (If Supplied By Facility): CTDIvol = ( 44.99 ) mGy, DLP = ( 779.24 ) mGycm COMPARISON: MRI of the brain of 12/25/2022 FINDINGS: BRAIN PARENCHYMA: No intra- or extra-axial hemorrhage. No evidence of acute infarct. No intracranial mass or mass effect. There is preservation of the [place]/white matter interface. Mild periventricular departmental changes likely due to mild chronic microvascular disease. Posterior fossa structures are unremarkable. Atherosclerotic calcifications of the cavernous internal carotid arteries. CSF SPACES: Appropriate for age. No hydrocephalus. Basal cisterns are patent. CALVARIUM, SKULL BASE, PARANASAL SINUSES AND MASTOID AIR CELLS: Mucosal thickening of the right maxillary sinus. No discrete lytic or blastic abnormalities. ORBITS: Both globes, extraocular muscles, optic nerves and retrobulbar fat appear unremarkable. CT/Brain/Head without Contrast IMPRESSION: No acute intracranial process. Electronically Signed: Adalid Salas MD at 9:49 EDT ,
--- NOTE | 2024-03-15 08:44 | EX.ED.UPPERE ---
HPI History of Present Illness HPI Narrative: 78-year-old female was in her basement 2 days ago on slipped on a plastic bag was on the floor fell forward struck her left forehead causing a laceration. May have had a brief loss of consciousness. Also when she fell she injured her left wrist. Initially thought she was okay was not evaluated till the day but she has had continued pain in her left wrist. Denies any headache or vomiting. She is on both Plavix and baby aspirin. Denies a headache. Denies vomiting. Chief Complaint: Upper Extremity Injury Informant: patient Occured/Mechanism Mechanism/Context: Yes injury and Yes blunt trauma Onset/Context/Timing Onset: Days Context: Sudden Onset Timing: Continuous Quality of Pain: Sharp Maximum Severity: Mild Associated Symptoms Associated Symptoms: Negative for Parasthesia, Weakness or Loss of Funtion Narrative Narrative: 78-year-old female fell 2 days ago injuring her left forehead with a laceration and her left wrist. She is right-hand dominant. Was not seen until today. Prior similar symptoms: No Recent Illness/Hospitalization: No PFSH PFSH Medical History Arthritis Atherosclerotic heart disease of [place] coronary artery without angina pectoris Bilateral malignant neoplasm of breast in female Bone metastases Breast cancer CAD (coronary artery disease) Cancer Candidiasis Cardiology follow-up encounter Chemotherapy induced diarrhea Chemotherapy management, encounter for CPAP (continuous positive airway pressure) dependence Dehydration Diabetes Diabetes mellitus type 2 in obese Diarrhea due to drug Dysuria Electrolyte abnormality Encounter for education Essential hypertension Fracture of hip, right, closed Genetic counseling Heel spur HER2-positive carcinoma of breast High cholesterol History of colon polyps History of DVT (deep vein thrombosis) History of echocardiogram History of left heart catheterization (LHC) (~02/02/21) History of stress test HLD (hyperlipidemia) Hypertension Hypokalemia Liver metastases Mass of left breast 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 Mucositis Non-smoker Nonrheumatic mitral valve regurgitation Nonrheumatic tricuspid (valve) insufficiency Osteoarthritis PORT PLACEMENT Presence of stent in coronary artery (~03/12/12) Pulmonary hypertension Recurrent breast cancer Screening for colon cancer Shortness of breath UTI (urinary tract infection) Home Medications aspirin 81 mg chewable tablet 81 mg PO DAILY 05/24/20 [History Last Taken 1 Week Ago ~01/15/23] nitroglycerin 0.4 mg sublingual tablet 0.4 mg sublingual Q5M PRN Cardiac/Chest Pain #25 tabs 07/22/21 [Rx Last Taken Unknown] lidocaine-prilocaine 2.5 %-2.5 % topical cream 1 applic topical ONCE PRN port access 30 days #30 grams 12/18/22 [Rx Last Taken 01/22/23] potassium chloride 10 mEq tablet,extended release(part/cryst) 10 meq PO 4X/DAY 02/07/23 [History Last Taken Unknown] isosorbide mononitrate 30 mg tablet,extended release 24 hr 30 mg PO DAILY #90 tabs 02/13/23 [Rx Last Taken Unknown] hydrochlorothiazide 25 mg tablet 25 tablet PO DAILY 03/29/23 [History Last Taken Unknown] metformin 625 mg tablet 625 mg PO BID 03/29/23 [History Last Taken Unknown] metoprolol tartrate 50 mg tablet 50 mg PO BID #180 tabs 11/21/23 [Rx Last Taken Unknown] ondansetron 8 mg disintegrating tablet 8 mg PO Q8H PRN nausea and vomiting #20 tabs 11/30/23 [Rx Last Taken Unknown] hydrocodone-acetaminophen 5-325mg 5mg-325mg 1 tab PO Q6H PRN PRN Pain 3 days #10 TABLETS 12/19/23 [Rx Last Taken Unknown] dulaglutide 0.75 mg/0.5 mL subcutaneous pen injector (Trulicity) mg subcut 12/31/23 [History Last Taken Unknown] tamoxifen 20 mg tablet 20 mg PO DAILY #30 tabs 12/31/23 [Rx Last Taken Unknown] Breast prosthesis (left) #1 ea 02/13/24 [Rx Last Taken Unknown] Breast prosthesis (right) #3 ea 02/13/24 [Rx Last Taken Unknown] Mastectomy bra #3 ea 02/13/24 [Rx Last Taken Unknown] clopidogrel 75 mg tablet 75 mg PO DAILY 03/15/24 [History Last Taken Unknown] Allergy/AdvReac Type Severity Reaction Status Date / Time iodine Allergy Severe Rash Verified 03/15/24 08:31 povidone-iodine AdvReac Severe Itching Verified 03/15/24 08:31 [From Betadine] pravastatin sodium AdvReac Severe LEG CRAMPS Verified 03/15/24 08:31 [From Pravachol] rosuvastatin calcium AdvReac Severe LEG CRAMPS Verified 03/15/24 08:31 [From Crestor] simvastatin AdvReac Severe LEG CRAMPS Verified 03/15/24 08:31 soap [From Betadine] AdvReac Severe Itching Verified 03/15/24 08:31 ramipril AdvReac Intermediate coughing Verified 03/15/24 08:31 Family History Sister Pancreatic cancer Diabetes Heart disease Leukemia Breast cancer Hypertension Brother Diabetes Bone cancer Heart disease Hypertension CVA (cerebral vascular accident) Father No problems noted. Surgical History History of bilateral mastectomy History of cardiac catheterization History of carpal tunnel surgery History of cholecystectomy History of colonoscopy History of coronary artery bypass graft x 3 (~02/09/21) History of knee joint replacement History of right breast biopsy History of surgery Hx of colonoscopy Postsurgical percutaneous transluminal coronary angioplasty (PTCA) status Presence of coronary angioplasty implant and graft (~03/12/12) S/P coronary artery bypass graft x 3 (~02/09/21) Social History Smoking Status: Never smoker alcohol intake: never substance use type: does not use caffeine: Yes Type: tea Number of servings: 1 ROS ROS ED ROS Narrative Denies recent illness. Denies headache. Review of Systems ROS Unobtainable: Denies due to encephalopathy Constitutional Constitutional ED: Denies chills or fever(s) Eyes Eyes: Denies blurry vision ENT ENT ED: Denies ear pain Cardiovascular Cardiovascular: Denies chest pain or palpitations Respiratory/Chest Respiratory/Chest: Denies cough or dyspnea Gastrointestinal Gastrointestinal: Denies abdominal pain, nausea or vomiting Genitourinary Genitourinary ED: Denies dysuria or hematuria Musculoskeletal Musculoskeletal: Denies back pain Integumentary Denies abscess Neurologic Neurologic: Denies headache(s) Endocrine Endocrinology: Denies cold intolerance Hematologic/Lymphatic Hematologic/Lymphatic: Denies lymphadenopathy Allergic/Immunologic Allergic/Immunologic ED: Denies mouth swelling, tongue swelling or urticaria EXAM Physical Exam Narrative Exam Narrative: Well-appearing 78-year-old female. Vital signs stable afebrile. HEENT exam pupils round and light extra motions intact. She is a Band-Aid on the left forehead above her eyebrow she is about a 1 to 2 inch laceration there that is 2 days old and is healing. No bleeding. She has a small bruise on her left cheek. Scalp nontender. Neck and back are nontender. Trachea midline. Normal range of motion of her neck. Lungs clear to auscultation. Heart regular rhythm no murmur. Chest wall and ribs nontender. Abdomen soft nontender. Pelvic girdle intact. Moving all 4 extremities. Tender over her distal radius with mild swelling. And decreased flexion extension due to pain. He is able to open close her left hand. No deformity to the hand. Left elbow and shoulder unremarkable. Right upper and both lower extremities are nontender with normal range of motion. Neurologically she is awake and alert with no focal motor deficits. Const Vital Signs: 03/15/24 08:31 Temperature 97.6 F L Temperature Source Temporal Pulse Rate 80 Respiratory Rate 18 Blood Pressure 189/78 H Blood Pressure Mean 115 Pulse Ox 96 Oxygen Delivery Method Room Air Positive well nourished and well developed; Negative for cachectic, contractures or unkempt General Appearance ED: well developed and NAD; Negative for unkempt, cachectic, contractures, cyanotic or diaphoretic Nutritional Appearance: Negative for cachectic HEENT Reports moist mucous membranes normocephalic, trauma and tenderness; Negative for atraumatic Eyes PERRL and EOMs intact bilaterally Neck supple General: Negative for tenderness Lymph Lymphatic: Negative for other Chest Wall inspection of chest normal and palpation of chest normal Chest: Negative for other Resp normal respiratory effort and clear to auscultation bilaterally Effort and Inspection: Negative for pain with movement Auscultation: Negative for rales, rhonchi or wheezes Cardio regular rate, regular rhythm, S1 normal heart sound, S2 normal heart sound and no murmurs Rate: Negative for bradycardia, tachycardic or other Rhythm: Negative for abnormal rhythm GI non-tender, non-distended and no masses Inspection: Negative for abdominal distention Auscultation: normoactive bowel sounds Palpation: soft; Negative for tender, guarding or rebound tenderness present Back/Spine no CVA tenderness General Back: Negative for CVA tenderness Cervical Spine: Negative for cervical spine tenderness Thoracic Spine / Upper Back: Negative for thoracic spinal tenderness Lumbar Spine / Lower Back: Negative for lumbar spinal tenderness Extremity normal to inspection and full ROM Extremity Narrative: Except left wrist. Tender distally. Swollen. Decreased range of motion and pain with range of motion. Concern for possible fracture versus sprain. General Extremety ED: Yes edema General Extremity: edema Neuro oriented x3, CN's II-XII intact bilaterally, moves all extremities and no focal motor deficits Sensorium / Orientation: alert, oriented to person, oriented to place and oriented to time; Negative for orientation impaired, lethargic or stuporous Motor Exam: strength 5/5 throughout Psych mental status grossly normal Appearance: Negative for unkempt Attitude: No agitated Mood & Affect: Negative for depressed, anxious or tearful Skin Lesions: no lesions Rashes: no rashes MDM MDM MDM Narrative Medical decision making narrative: 78-year-old female fell 2 days ago on at home when she slipped on a plastic bag. Struck the left side of her head causing a laceration. She is on Plavix and aspirin will get a CAT scan of her head. I suspicion is low though for an intracranial bleed. She is a laceration that will be repaired as again it is 2 days old. She also injured her left wrist were obtaining an x-ray for possible left wrist fracture. Repeat exam patient is doing well at 9:25 AM. I went over the wrist x-rays with her. Also the CAT scan of the brain. She knows we are awaiting formal radiology interpretation of the CAT scan. She will be discharged home. Head injury instructions. Left wrist sprain. Ice and elevate. Follow-up if not improving. History & Record Review Discussion w/independent historian: Patient Additional record(s) reviewed:: Prior inpatient record, Prior outpatient record, Prior ED visit and Prior labs Radiography Chest X-Ray - ED: Read by ED Physician Diagnostic Testing: Left wrist x-ray, 3 views, interpreted by myself shows no acute fracture. No dislocation. Degenerative arthritis at the carpal bones near the thumb. Interpreted by myself. CAT scan of the brain shows no acute bleed. Chronic changes. Calcifications. Interpreted by myself but awaiting formal radiology interpretation of the CAT scan of the brain. Discharge Plan Triage Chief Complaint: Upper Extremity Injury ED Provider: Osman Whitman Dx/Rx/DC Orders Clinical Impression: Head injury, Forehead laceration, Fall, Left wrist sprain Instructions: ED Head Injury (Adult), ED Wrist Sprain Prescriptions: No Action aspirin 81 mg tablet,chewable 81 mg PO DAILY nitroglycerin 0.4 mg tablet, sublingual 0.4 mg SL Q5M PRN (Reason: Cardiac/Chest Pain) Qty: 25 3RF lidocaine-prilocaine 2.5-2.5 % cream 1 applic topical ONCE PRN (Reason: port access) 30 Days Qty: 30 2RF potassium chloride 10 MEQ tablet,ER particles/crystals 10 meq PO 4X/DAY hydrochlorothiazide 25 mg tablet 25 tablet PO DAILY metformin 625 mg tablet 625 mg PO BID Trulicity 0.75 mg/0.5 mL pen injector subcut tamoxifen 20 mg tablet 20 mg PO DAILY Qty: 30 12RF hydrocodone-acetaminophen [hydrocodone-acetaminophen] 5-325 mg tablet 1 tab PO Q6H PRN PRN (Reason: Pain) 3 Days Qty: 10 0RF ondansetron 8 mg tablet,disintegrating 8 mg PO Q8H PRN (Reason: nausea and vomiting) Qty: 20 0RF clopidogrel 75 mg tablet 75 mg PO DAILY isosorbide mononitrate 30 mg tablet extended release 24 hr 30 mg PO DAILY Qty: 90 4RF metoprolol tartrate 50 mg tablet 50 mg PO BID Qty: 180 3RF (DME) Breast prosthesis (left) See Rx Instructions .Route .MEDSUPPLY Qty: 1 0RF Rx Instructions: As directed (DME) Breast prosthesis (right) See Rx Instructions .Route .MEDSUPPLY Qty: 3 3RF Rx Instructions: As directed (DME) Mastectomy bra See Rx Instructions .Route .MEDSUPPLY Qty: 3 3RF Rx Instructions: As directed Primary Care Provider: Jb Cast Referrals: Jb Cast MD [Primary Care Provider] - 1 Week if not improving Activity Restrictions/Additional Instructions: Ice and elevate your wrist to decrease pain and swelling. There is no broken bones on the x-ray. The inflammation should progressively improve over the next week. Tylenol for pain. If you get a severe headache, have intractable vomiting or you not acting right return but the CAT scan your brain looks good also. There is no signs of bleeding in your brain. Follow-up with your doctor if not improving. If your wrist pain does not improve over the next 1 to 2 weeks and get back to normal get it fidel-rayed. Keep the laceration on your left forehead clean. Watch for any signs of infection. It should heal over the next 1 to 2 weeks. Disposition Disposition: Home, Self Care
[2024-03-15 10:07] VITALS: BP 152/75; PULSE 66; RESP 16; TEMP 36.6; O2SAT 98
== END 2024-03-15 10:09 | disposition home or self-care (01) ==
LOC: ED 09:37
PROVIDERS: Emergency Provider Emergency Medicine; PCP Family Medicine; Visit Provider Emergency Medicine
DX: S01.81XA Laceration without foreign body of other part of head, initial encounter (principal); E11.9 Type 2 diabetes mellitus without complications; S63.92XA Sprain of unspecified part of left wrist and hand, initial encounter; W01.10XA Fall on same level from slipping, tripping and stumbling with subsequent striking against unspecified object, initial encounter; Y92.89 Other specified places as the place of occurrence of the external cause; I25.10 Atherosclerotic heart disease of native coronary artery without angina pectoris; I10 Essential (primary) hypertension; E78.00 Pure hypercholesterolemia, unspecified; Z79.84 Long term (current) use of oral hypoglycemic drugs; Z79.02 Long term (current) use of antithrombotics/antiplatelets; Z79.899 Other long term (current) drug therapy; Z95.1 Presence of aortocoronary bypass graft; Z79.82 Long term (current) use of aspirin; Z95.5 Presence of coronary angioplasty implant and graft
CPT/HCPCS: 70450; 73110; 99283

== ENCOUNTER → 2024-05-07 | Outpatient (CLI) | payer MEDICARE, OTHER, SELFPAY ==
[2023-01-17 10:06] VITALS: BMI 36.6
--- NOTE | 2024-05-07 10:35 | RAD_ITS ---
STUDY: X-RAY - LEFT HAND REASON FOR EXAM: Female, 78 years old. SWELLING OF LEFT HAND TECHNIQUE: 3 view(s) of the hand. COMPARISON: Comparison is made with prior study October 29, 2019. FINDINGS: Normal radiocarpal articulation. Normal distal radioulnar joint. Normal visualized carpal bones. Normal carpal articulations There is degenerative arthrosis of the carpometacarpal (CMC) articulation of the thumb. Normal second through fifth carpometacarpal joints. Normal metacarpi. Normal metacarpophalangeal joint of the thumb. Normal interphalangeal joint of the thumb. Normal proximal and distal phalanges of the thumb. Normal metacarpophalangeal joints of the second through fifth fingers. Normal proximal and distal interphalangeal joints of the second through fifth fingers. Normal phalanges of the second through fifth fingers. Diffuse soft tissue swelling. RAD/Hand Min 3 Views IMPRESSION: Degenerative joint disease of the hand, as described above. Soft tissue swelling. Electronically Signed: Gabriel Tabor MD at 15:52 EDT ,
== END | disposition home or self-care (01) ==
PROVIDERS: PCP Family Medicine; Referring Provider Family Medicine; Visit Provider Family Medicine
DX: M79.89 Other specified soft tissue disorders (principal)
CPT/HCPCS: 73130

== ENCOUNTER → 2024-06-10 | Outpatient (CLI) | payer MEDICARE, OTHER, SELFPAY ==
[2023-01-17 10:06] VITALS: BMI 36.6
--- NOTE | 2024-06-10 12:34 | ECHOLONC_ITS ---
Reason For Study: [facility] [employer] [employer] [employer] [facility] Procedure This was a limited 2D transthoracic echocardiogram. Myocardial strain analysis was performed in this exam to aid in the assessment of cardiac function. Exam performed in department. Left Ventricle Normal LV size. Left ventricular systolic function is normal. The left ventricular ejection fraction is 65 %. No regional wall motion abnormalities noted. Right Ventricle Normal RV size. Normal systolic function. Atria Normal left atrium. Normal right atrium. Mitral Valve Normal mitral valve. Tricuspid Valve Normal tricuspid valve. Aortic Valve Trisinus/trileaflet aortic valve. Mild focal aortic valve calcification. Pulmonic Valve Normal pulmonic valve. Great Vessels Normal aortic root. The pulmonary artery is normal size. Normal inferior vena cava. Pericardium/Pleural No pericardial effusion. MMode/2D Measurements & Calculations LVIDd: 5.1 cm IVSd: 1.0 cm Ao root diam: 3.7 cm LVIDs: 3.3 cm LVPWd: 0.94 cm RVDd: 3.4 cm FS: 35.6 % LAV(MOD-bp): 92.1 ml LVAd ap4: 24.8 cm2 SV(MOD-sp4): 46.6 ml LAV(MOD-bp) Indexed: 46.8 ml/m2 LVLd ap4: 7.2 cm LAV(MOD-sp2): 83.1 ml EDV(MOD-sp4): 73.9 ml LAV(MOD-sp4): 97.8 ml EDV(sp4-el): 72.5 ml LVAs ap4: 13.6 cm2 LVLs ap4: 6.1 cm ESV(MOD-sp4): 27.2 ml ESV(sp4-el): 25.7 ml EF(MOD-sp4): 63.1 % EF(sp4-el): 64.6 % SV(sp4-el): 46.8 ml LA A4 area: 27.6 cm2 LA dimension(2D): 4.6 cm RA A4 area: 23.0 cm2 TAPSE: 2.1 cm ECHO/ONC Echo, Limited Study Interpretation Summary Normal LV size. Left ventricular systolic function is normal. The left ventricular ejection fraction is 65 %. The global longitudinal strain = -16.3% (abnormal). The global longitudinal str ain is mildly abnormal. Compared to previous study, the left ventricular systolic function cueto s improved.. The prior global longitudinal strain was -14 % . Ordering Physician: Jessica Ochoa Referring Physician: Jb Cast Performed By: Mary Lou Fuchs RDCS, RVT
== END | disposition home or self-care (01) ==
LOC: CVS 12:34
PROVIDERS: PCP Family Medicine; Referring Provider Internal Medicine Hematology & Oncology; Visit Provider Internal Medicine Hematology & Oncology
DX: Z79.899 Other long term (current) drug therapy (principal); Z51.81 Encounter for therapeutic drug level monitoring
CPT/HCPCS: 93308; 93356

== ENCOUNTER → 2024-09-22 | Outpatient (CLI) | payer MEDICARE, OTHER, SELFPAY ==
[2023-01-17 10:06] VITALS: BMI 36.6
--- NOTE | 2024-09-22 07:45 | ECHOLONC_ITS ---
Version 2 Reason For Study: antineoplastic chemo Procedure Myocardial strain analysis was performed in this exam to aid in the assessment of cardiac function. This was a limited 2D transthoracic echocardiogram. Exam performed in department. Left Ventricle Normal LV size. Left ventricular systolic function is normal. The estimated ejection fraction is 58 %. No regional wall motion abnormalities noted. Right Ventricle Normal RV size. Normal systolic function. Atria Normal left atrium. The right atrium is moderately enlarged. Mitral Valve Normal mitral valve. Tricuspid Valve Normal tricuspid valve. Aortic Valve Trisinus/trileaflet aortic valve. Pulmonic Valve Normal pulmonic valve. Great Vessels Normal aortic root. The pulmonary artery is normal size. Inferior vena cava collapse with respiration. Pericardium/Pleural No pericardial effusion. MMode/2D Measurements & Calculations LVIDd: 4.1 cm IVSd: 1.1 cm LVOT diam: 2.2 cm LVIDs: 2.9 cm LVPWd: 1.3 cm LVOT area: 3.6 cm2 FS: 30.1 % LAV(MOD-bp): 60.3 ml LVAd ap4: 23.6 cm2 SV(MOD-sp4): 35.3 ml LAV(MOD-bp) Indexed: 30.6 ml/m2 LVLd ap4: 7.1 cm LAV(MOD-sp2): 53.7 ml EDV(MOD-sp4): 67.7 ml LAV(MOD-sp4): 57.5 ml EDV(sp4-el): 66.1 ml LVAs ap4: 14.8 cm2 LVLs ap4: 6.2 cm ESV(MOD-sp4): 32.4 ml ESV(sp4-el): 29.6 ml EF(MOD-sp4): 52.2 % EF(sp4-el): 55.3 % SV(sp4-el): 36.6 ml LA A4 area: 20.4 cm2 LA dimension(2D): 4.4 cm RA A4 area: 25.0 cm2 ECHO/ONC Echo, Limited Study Interpretation Summary Normal LV size. Left ventricular systolic function is normal. The right atrium is moderately enlarged. The estimated ejection fraction is 58 %. The global longitudinal strain is borderline abnormal. The global longitudinal strain = -16.9% (abnormal). Ordering Physician: Jessica Ochoa Referring Physician: Jessica Ochoa Performed By: Malina Lopez RCS
--- OUTSIDE RECORDS SUMMARY | 2024-09-22 08:07 | XMS RPT_ITS | CCD ---
Author Organization [facility] ion Partnership [facility] [place] [facility] Care Team Providers Care Outsole Caser Name Role Phone Aristeo ALEJANDRO, Dora Clancy Unavailable TRESSA GRAY Attending Unavailable NENA LESLIE Referring Unavailable JB ALVA Primary Care Unavailable YADIRA LOCKHART Attending Unavailable YADIRA LOCKHART Referring Unavailable JB ALVA Primary Care Unavailable TRESSA GRAY Attending Unavailable ANUJ, NENA S Referring Unavailable JB ALVA Primary Care Unavailable Unavailable Primary Care Provider Unavailwil e Mana, Harumi Y Unavailable Unavailable HARITHA Delgado, Dora Hopper Unavailable [phone] Ethel Benavides RN Unavailable Unavailable Yecenia Zaragoza Unavailable Yecenia Zaragoza Unavailable Allergies Allergy Classification Reported Allergen(s) Allergy Type Date of Onset Reaction(s) Facility (7 sources) iodine; Translations: [IODINE] Drug Allergy 1 CT dye/Heart cath dye - RASH [facility] Work Phone: [phone] (6 sources) pravastatin Drug Allergy 3 myalgias [facility] Work Phone: [phone] (6 sources) rosuvastatin Drug Allergy 3 myalgias [facility] Work Phone: [phone] (8 sources) simvastatin; Translations: [SIMVASTATIN] Drug Allergy 3 myalgias [facility] Work Phone: [phone] (1 source) Petrolatum; Translations: [PETROLATUM] Drug Allergy 8 [facility] Repository (1 source) Povidone-Iodine; Translations: [POVIDONE IODINE] Drug Allergy 8 [facility] Repository (2 sources) Pravastatin; Translations: [PRAVASTATIN SODIUM] Drug Allergy 8 [facility] Repository (2 sources) rosuvastatin; Translations: [ROSUVASTATIN CALCIUM] Drug Allergy 8 [facility] Repository (1 source) Povidone-Iodine Drug Allergy 1 [facility] Work Phone: (1 source) Iodides Propensity to adverse reactions to drug 1 Other (See Comments) [facility] Work Phone: Medications Current Medications Medication Drug Class(es) Dates Sig (Normalized) Sig (Original) acetaminophen 500 mg oral tablet (1 source) Start: 02-09-2021 take 1000 mg by mouth every eight hours, then take 4000 mg by mouth every twenty-four hours 1,000 mg, Oral, EVERY 8 HOURS, First dose on Sun02/09/21 at 2200 Maximum dose of acetaminophen is 4000 mg from all sources in 24 hours. Post-op acetaminophen 325 mg / oxyCODONE hydrochloride 5 mg oral tablet (1 source) Opioid Agonist Start: 02-13-2021 End: 02-20-2021 take 1 tablet by mouth every eight hours as needed for pain, then take 1 tablet by mouth as needed for pain oxyCODONE-acetamino phen (PERCOCET) 5-325 MG per tablet Indications: S/P CABG (coronary artery bypass graft) Take 1 tablet by mouth every 8 hours as needed for Pain for up to 7 days. Intended supply: 7 days. Take lowest dose possible to manage pain 21 tablet 0 02/13/2021 02/20/2021 Active 20 ml albumin human, senior living 250 mg/ml injection (1 source) Human Serum Albumin Start: 02-09-2021 25 g, Intravenous, PRN, Other, first fluid bolus challenge PRN: PAD below goal (18) and Low CI (less than 2.0) and/or Low BP (less than 90 SBP and/or less than 60 MAP) and/or Low urine output (less than 30ml/hr) per hemodynamic goals, Starting Sun02/09/21 at 1445, For 1 dose Use if hgb greater than 7.5 and PAD below goal (18) and Low CI (less than 2.0) and/or Low BP (less than 90 SBP and/or less than 60 MAP) and/or Low urine output (less than 30ml/hr) per hemodynamic goals If hemodynamic goals unattained, proceed to second fluid bolus challenge. &nb sp; If hgb less than 7.5 notify surgeon for orders. Post-op aspirin 81 mg chewable tablet (20 sources) Platelet Aggregation Inhibitor, Nonsteroidal Anti-inflammatory Drug Start: 02-10-2021 take 81 mg by mouth once daily 81 mg, Oral, DAILY, First dose on Pamela 02/10/21 at 0900 Start: 02-03-2021 End: 02-08-2021 aspirin chewable tablet 81 m g Start: 05-07-2012 take 1 tablet by oneida th once daily ASPIRIN 81 MG TABS One tablet by mouth daily ASPIRIN [id number] Olinda Penn RN Start: 05-07-2012 take 1 tablet by oneida th once daily ASPIRIN EC 81 MG TBEC Take one tab by mouth daily ASPIRIN [id number] Lety Larsen LPN Start: 02-20-2011 take 1 tablet by oneida th once daily ASPIRIN 325 MG TABS One tablet by mouth daily ASPIRIN [id number] Marija Scales atorvastatin 10 mg oral tablet (20 sources) HMG-CoA Reductase Inhibitor Start: 02-13-2021 take 1 tablet by mouth once daily atorvastatin (LIPITOR) 10 MG tablet Take 1 tablet by mouth nightly 30 tablet 3 02/13/2021 Active Start: 02-10-2021 take 10 mg by mouth once daily 10 mg, Oral, NIGHTLY, First dose on Pamela 02/10/21 at 2100 Start: 02-09-2014 ATORVASTATIN C ALCIUM 20 MG TABS One half tablet by mouth daily ATORVASTATIN CALCIUM [id number] Jb Segovia MD Start: 12-04-2012 End: 02-13-2021 take 1 tablet by mouth once daily LIPITOR 10 MG TABS One tablet by mouth daily at night ATORVASTATIN CALCIUM [id number] Jb Segovia MD calcium citrate 1500 mg / cholecalciferol 250 unt oral tablet (1 source) Vitamin D take 1 tablet by mouth twice daily at mealtime calcium citrate-vitamin D (CITRICAL + D) 315-250 MG-UNIT TABS per tablet Take 1 tablet by mouth 2 times daily (with meals) 0 Active clopidogrel 75 mg oral tablet (15 sources) P2Y12 Platelet Inhibitor Start: 02-14-20 take 1 tablet by mouth once daily clopidogrel (PLAVIX) 75 MG tablet Take 1 tablet by mouth daily 30 tablet 3 02/13/2021 Active Start: 02-20-2011 End: 02-13-2021 take 75 mg by mouth once daily 75 mg, Oral, DAILY, [facility]ir [facility] dose on 02/12/21 at 0900 dicyclomine hydrochloride 20 mg oral tablet (1 source) Anticholinergic take 1 tablet by mouth every six hours dicyclomine (BENTYL) 20 MG tablet Take 20 mg by mouth every 6 hours 0 Active docusate sodium 50 mg / sennosides, senior living 8.6 mg oral tablet (2 sources) Start: 02-09-2021 take 2 tablets by mouth once daily 2 tablet, Oral, NIGHTLY, First dose on Sun02/09/21 at 2100, Post-op Start: 02-08-2021 End: 02-09-2021 sennosides-docusate sodium ( SENOKOT-S) 8.6-50 MG tablet 2 tablet 0.5 ml dulaglutide 1.5 mg/ml auto-injector (1 source) GLP-1 Receptor Agonist Start: 02-13-2021 Dulaglutide (TRULICITY) 0.75 MG/0.5ML SOPN Inject 0.75 mg into the skin once a week 4 pen 1 02/13/2021 Active Start: 02-13-2021 Dulaglutide (T RULICITY) 0.75 MG/0.5ML SOPN Inject 0.75 mg into the skin once a week 4 pen 1 02/13/2021 Active 0.4 ml enoxaparin sodium 100 mg/ml prefilled syringe (2 sources) Low Molecular Weight Heparin Start: 02-10-2021 enoxaparin (LOVENOX) injection 40 mg Start: 02-03-2021 End: 02-07-2021 enoxaparin (LOVENOX) injecti on 40 mg glucagon (rdna) 1 mg injection (1 source) Antihypoglycemic Agent Start: 02-09-2021 take 1 mL intravenous route every hour 1 mg, Intramuscular, PRN, Low blood sugar, Blood glucose less than 70 mg/dL and patient NOT ALERT or NPO and does not have IV access., Starting Sun02/09/21 at 1751 After administration, attempt intravenous access and start D5W at 100 mL/hr. Repeat blood glucose in 15 minutes x2 and notify provider. 1000 ml glucose 500 mg/ml injection (3 sources) Start: 02-09-2021 15 g, Oral, PRN, Low blood sugar, Starting Sun02/09/21 at 1751 If blood glucose less than 50 mg/dL and patient ALERT and TOLERATING PO, give 2 tubes glucose gel. If blood glucose less than 70 mg/dL and patient ALERT and TOLERATING PO, give 1 tube glucose gel. Repeat blood glucose in 15 minutes. If blood glucose is less than 70 mg/dL, repeat treatment and recheck blood glucose in 15 minutes x2 and notify provider. Post-op Start: 02-09-2021 12.5 g, Intrav enous, PRN, Low blood sugar, Blood glucose less than 70 mg/dL and patient NOT ALERT or NPO., Starting Sun02/09/21 at 1751 If patient does not respond within 5 minutes, repeat dose x1. Start D5W at 100 mL/hour until ordering provider can be reached. Repeat blood glucose in 15 minutes. If blood glucose is less than 70 mg/dL, repeat treatment and recheck blood glucose in 15 minutes x2. If using Glucostabilizer, dose as instructed per system. Post-op Start: 02-09-2021 100 mL/hr, Int ravenous, at 100 mL/hr, PRN, Low blood sugar, Starting Sun02/09/21 at 1751 Start infusion following administration of dextrose 50% or glucagon. Post-op hydroCHLOROthiazide 25 mg oral tablet (10 sources) Thiazide Diuretic Start: 02-13-2021 take 25 mg by mouth once daily 25 mg, Oral, DAILY, First dose (after last reorder) on 02/13/21 at 0900 Start: 02-20-2011 End: 02-08-2021 take 25 mg by mouth once daily 25 mg, Oral, DAILY, Fir st dose on Pamela 02/03/21 at 1015 insulin glargine 100 unt/ml injectable solution (1 source) Insulin Analog Start: 02-11-2021 insulin glargi ne (LANTUS) injection vial 20 Units insulin lispro 100 unt/ml injectable solution (5 sources) Insulin Analog Start: 02-13-2021 insulin lispro (HUMALOG) injection vial 6 Units Start: 02-11-2021 insulin lispro (HUMALOG) injection vial 0-12 Units Start: 02-11-2021 End: 02-12-2021 insulin lispro (HUMALOG) inj ection vial 8 Units Start: 02-02-2021 End: 02-09-2021 insulin lispro (HUMALOG) inj ection vial 0-6 Units lidocaine 0.04 mg/mg medicated patch (1 source) Antiarrhythmic, Amide Local Anesthetic Start: 02-09-2021 lidocaine 4 % external patch 1 patch 50 ml magnesium sulfate 40 mg/ml injection (1 source) Start: 02-09-2021 2,000 mg, Intravenous, at 25 mL/hr, Administer over 2 Hours, PRN, Other, hypomagnesemia, Starting 02/09/21 at 1751 Via central line - If patient has acute/chronic renal failure do not initiate protocol, call MD for management.&nbsp ;Mag level &nbsp ; Dose Less than or equal to 1.0 & nbsp; &nbsp ; &nb sp; Give 2 grams at 1 gm/hr. Call MD. Monitor BP and EKG. Repeat Magnesium level 60 minutes post infusion. 1 .1 - 1.5 & nbsp; &nbsp ; &nb sp; & nbsp; &nbsp ; &nb sp; & nbsp; &nbsp ; &nb sp; & nbsp; &nbsp ; &nb sp; & nbsp; Give 2 grams at 1 gm/hr. Repeat Magnesium level 60 minutes post infusion 1.6 - 1.9 & nbsp; &nbsp ; &nb sp; & nbsp; &nbsp ; &nb sp; & nbsp; &nbsp ; &nb sp; & nbsp; &nbsp ; &nb sp; & nbsp; Give 2 grams at 1 gm/hr. Repeat Magnesium level 60 minutes post infusion Gr eater than 1.9 & nbsp; &nbsp ; &nb sp; & nbsp; &nbsp ; &nb sp; & nbsp; &nbsp ; &nb sp;No coverage Post-op metoprolol tartrate 25 mg oral tablet (4 sources) beta-Adrenergic Leonard Start: 02-13-2021 take 1 tablet by mouth twice daily metoprolol tartrate (LOPRESSOR) 25 MG tablet Take 1 tablet by mouth 2 times daily 60 tablet 3 02/13/2021 Active Start: 02-12-2021 metoprolol tar trate (LOPRESSOR) tablet 25 mg Start: 02-10-2021 End: 02-12-2021 metoprolol tartrate (LOPRESS OR) tablet 12.5 mg Start: 02-02-2021 End: 02-09-2021 metoprolol tartrate (LOPRESS OR) tablet 25 mg morphine (PF) injection 2 mg (1 source) Start: 02-09-2021 morphine (PF) injection 2 mg mupirocin 0.02 mg/mg topical ointment (2 sources) RNA Synthetase Inhibitor Antibacterial Start: 02-08-2021 End: 02-13-2021 Nasal, 2 TIMES DAILY, First dose on Sun02/09/21 at 2100, For 4 days, Post-op 2 ml ondansetron 2 mg/ml injection (1 source) Serotonin-3 Receptor Antagonist Start: 02-09-2021 4 mg, Intravenous, EVERY 8 HOURS PRN, Nausea, Starting Sun02/09/21 at 1751, Post-op oxyCODONE (1 source) Opioid Agonist Start: 02-09-2021 oxyCODONE (ROXICODONE) immediate release tablet 5 mg polyethylene glycol [id number] [id number] mg powder for oral solution (2 sources) Osmotic Laxative Start: 02-09-2021 End: 03-15-2021 take 17 g by mouth once daily polyethylene glycol (GLYCOLAX) 17 g packet Take 17 g by mouth daily 30 each 0 02/13/2021 03/15/2021 Active 50 ml potassium chloride 0.4 meq/ml injection (20 sources) Start: 02-09-2021 potassium chlo ride 20 mEq/50 mL IVPB (Central Line) Start: 02-09-2021 20 mEq, Oral, 2 TIMES DAILY, First dose on Sun02/13/21 at 0900 Do not crush or break. Start: 02-09-2021 20 mEq, Intrav enous, at 50 mL/hr, Administer over 60 Minutes, PRN, Other, hypokalemia, Starting Sun02/09/21 at 1751 Via central line - do not use if urine output below 30 mL/hr or if patient is on total parental nutrition, peritoneal or hemodialysis. Potassium Level Dose: Less than or equal to 3.5-Give 20mEq x 2 doses. Less than or equal to 2-Call provider. Repeat potassium level 2 hour post-infusion and follow protocol as indicated. Post-op Start: 02-06-2012 take 2 tablets by mo uth once daily POTASSIUM CHLORIDE 20 MEQ PACK Two tablets by mouth daily POTASSIUM CHLORIDE [id number] Leeanne Simon RN Start: 02-06-2012 take 2 tablets by mo uth once daily POTASSIUM CHLORIDE 20 MEQ PACK Two tablets by mouth daily POTASSIUM CHLORIDE [id number] Leeanne Simon RN Start: 02-06-2012 take 2 tablets by mo [facility] twice daily K-TAB 10 MEQ CR-TABS Two tablets by mouth twice daily POTASSIUM CHLORIDE [id number] Jb Segovia MD Start: 02-06-2012 take 2 tablets by mo [facility] once daily K-TAB 10 MEQ CR-TABS Two tablets by mouth daily POTASSIUM CHLORIDE [id number] Jb Segovia MD Start: 02-20-2011 take 1 tablet by oneida once daily POTASSIUM CHLORIDE 20 MEQ PACK 1 1/2 tablets by mouth daily POTASSIUM CHLORIDE [id number] Marija Hopper Yordy Start: 02-20-2011 take 1 tablet by oneida once daily POTASSIUM CHLORIDE 20 MEQ PACK 1 1/2 tablets by mouth daily POTASSIUM CHLORIDE [id number] Marija Saldañaward take [facility], then take 1 capsule by mouth potassium chloride (MICRO-K) 10 MEQ extended release capsule Take 20 mEq by mouth 2 times daily 0 Active ramipril 2.5 mg oral capsule (20 sources) Angiotensin Converting Enzyme Inhibitor Start: 02-13-2021 take 2.5 mg by mouth once daily 2.5 mg, Oral, DAILY, First dose on Sun02/13/21 at 0900 Start: 05-20-2012 take 1 tablet by oneida once daily ALTACE 2.5 MG CAPS One tablet by mouth daily RAMIPRIL [id number] Jb Segovia MD Start: 02-20-2011 End: 05-07-2012 take 1 tablet by mouth once daily ALTACE 2.5 MG CAPS One tablet by mouth daily RAMIPRIL [id number] Olinda Penn RN regular insulin, human 100 unt/ml injectable solution (1 source) Insulin Start: 02-09-2021 take 2 [IU] intravenous route once as needed 4 Units, Intravenous, PRN, High Blood Hernandez gar, Insulin Bolus per Post op Open Heart Insulin drip, Starting Sun02/09/21 at 1751 Post Open Heart Insulin Drip To be used as outlined in protocol for Blood Sugar Range between 181-240: If patient's blood sugar is 50-100 mg/dl lower from previous blood sugar then continue same rate. If blood sugar is lower than last blood sugar by greater than 100 then decrease rate by 25%; if blood sugar is lower than previous blood sugar by less than 50 mg/dl or higher than last blood sugar then initiate PRN bolus and bolus with 4 units IV and increase rate by 2 units/hr. Intervention to be used only when patient is on insulin drip for post op open heart surgery. When insulin drip discontinued, order no longer valid. 3 ml sodium chloride 9 mg/ml injection (5 sources) Start: 02-09-2021 10 mL, Intracatheter, EVERY 8 HOURS, First dose on Sun02/09/21 at 1815 Flush each lumen when not in use. Line Care. Use 10 mL or larger syringe. Start: 02-09-2021 10 mL, Intraca theter, PRN, Line Care, before and after blood draws, infusion or medication administration, Starting Sun02/09/21 at 1751 Use 10 mL or larger syringe. Start: 02-09-2021 take 10 mL intraveno us route once 10 mL, Intravenous, PRN, Line Care, Starting Sun02/09/21 at 1751 After every IV line use Post-op Start: 02-09-2021 250 mL (2.56 m L/kg), Intravenous, at 1,500 mL/hr, Administer over 10 Minutes, PRN, 2nd fluid bolus challenge: PAD below goal (18) and Low CI (less than 2.0) and/or Low BP (less than 90 SBP and/or less than 60 MAP) and/or Low urine output (less than 30ml/hr) per hemodynamic goals, Starting Sun02/09/21 at 1751, For 1 dose If first fluid bolus challenge unsuccessful at reaching hemodynamic goals use second fluid bolus challenge if hgb greater than 7.5 and PAD below goal (18) and Low CI (less than 2.0) and/or Low BP (less than 90 SBP and/or less than 60 MAP) and/or Low urine output (less than 30ml/hr) per hemodynamic goals Notify surgeon for further orders if bolus does not help reach hemodynamic goals If hgb less than 7.5 notify surgeon for orders. Post-op Start: 02-09-2021 Intravenous, a t 20 mL/hr, CONTINUOUS, Starting Sun02/09/21 at 1815 20 ml/hr to SP(introducer) and WT on [place] Catheter; once [place] discontinued run at 20 ml/hr through SP(introducer) Post-op Completed/Discontinued Medications Medication Drug Class(es) Dates Sig (Normalized) Sig (Original) acetaminophen 325 mg / HYDROcodone bitartrate 5 mg oral tablet (8 sources) Opioid Agonist Start: 09-17-2015 End: 10-08-2017 NORCO 5-325 MG TABS as needed HYDROCODONE-ACETA MINOPHEN [id number] Odilia Garcia RN amLODIPine 5 mg oral tablet (1 source) Dihydropyridine Calcium Channel Leonard Start: 02-06-2021 End: 02-09-2021 amLODIPine (NORVASC) tablet 5 mg anastrozole 1 mg oral tablet (2 sources) Aromatase Inhibitor Start: 02-03-2021 End: 02-09-2021 take 1 mg by mouth once daily 1 mg, Oral, DAILY, First dose on Pamela 02/03/21 at 1015 Hazardous Medication -- Refer to facility policy for handling and disposal. atenolol 50 mg oral tablet (7 sources) beta-Adrenergic Leonard Start: 02-20-2011 End: 02-13-2021 take 1 tablet by mouth once daily ATENOLOL 50 MG TABS One tablet by mouth daily ATENOLOL [id number] Jb Segovia MD calcium carbonate 1250 mg / cholecalciferol 200 unt oral tablet (1 source) Vitamin D Start: 02-03-2021 End: 02-09-2021 calcium-cholecalc iferol 500-200 MG-UNIT per tablet 1 tablet calcium gluconate 2,000 mg in dextrose 5 % 100 mL IVPB (1 source) Start: 02-09-2021 2,000 mg, Intravenous, PRN, Starting Sun02/09/21 at 1751, Until Discontinued Via central line. Infuse over 2 hours, Repeat serum ionized calcium [address] infusion completed. Place order for recheck under surgeon Post-op ceFAZolin 2000 mg injection (1 source) Cephalosporin Antibacterial Start: 02-09-2021 End: 02-11-2021 2,000 mg, Intravenous, EVERY 8 HOURS, 5 doses, First dose on Sun02/09/21 at 2200, Last dose on Sun02/11/21 at 0600, Post-op chlorhexidine gluconate 1.2 mg/ml mouthwash (2 sources) Start: 02-09-2021 End: 02-10-2021 take 15 mL by mouth twice daily 15 mL, Mouth/Throat, 2 TIMES DAILY, First dose on Sun02/09/21 at 2100, For 7 days Rinse and spit. Do not swallow. Post-op Start: 02-08-2021 End: 02-09-2021 chlorhexidine (PERIDEX) 0.12 % solution 15 mL citalopram 10 mg oral tablet (12 sources) Serotonin Reuptake Inhibitor Start: 08-17-2014 End: 04-29-2015 take 1 tablet by mouth once daily CITALOPRAM HYDROBROMIDE 10 MG TABS One tablet by mouth daily CITALOPRAM HYDROBROMIDE [id number] Dora Delgado PA-C diphenhydrAMINE hydrochloride 25 mg oral tablet (1 source) Histamine-1 Receptor Antagonist End: 02-13-2021 take 2 tablets by mouth every six hours as needed diphenhydrAMINE (BENADRYL) 25 MG tablet Take 50 mg by mouth every 6 hours as needed for Itching Take at HS the night before a procedure 0 02/13/2021 Discontinued (Stop Taking at Discharge) EPINEPHrine (EPINEPHrine HCL) 5 mg in dextrose 5 % 250 mL infusion (1 source) Start: 02-09-2021 End: 02-10-2021 0.01 mcg/kg/min 97.5 kg (2.925 mL/hr, rounded to 2.9 mL/hr), Intravenous, at 2.9 mL/hr, CONTINUOUS PRN, Initiate if Cardiac Index below 2.0; SBP less than 90 mmHg; and PAD above 18, Starting Sun02/09/21 at 1751 May titrate up to 0.1 mcg/kg/min to maintain SBP greater than 90 and less than 130 Titrate by 0.02 mcg/kg/min no faster than every 15 minutes to goal May titrate outside of defined titration parameters (increments and frequency) under the direction of the provider If SBP greater than 130 wean drip, titrate by 0.02 mcg/kg/min no faster than every 15 minutes to goal SBP greater than 90 but less than 130 ergocalciferol 84007 unt oral tablet (9 sources) Provitamin D2 Compound Start: 07-07-2013 take 1 tablet by mouth two times weekly VITAMIN D (ERGOCALCIFEROL) 72587 UNIT CAPS One tablet by mouth twice weekly ERGOCALCIFEROL [id number] Jb Segovia MD Start: 07-07-2013 take 2 tablets by mo ut every week VITAMIN D (ERGOCALCIFEROL) 68563 UNIT CAPS two tablet by mouth weekly ERGOCALCIFEROL [id number] Erna Hdez NP Start: 07-07-2013 take 1 tablet by oneida th two times weekly VITAMIN D (ERGOCALCIFEROL) 00488 UNIT CAPS One tablet by mouth twice weekly ERGOCALCIFEROL [id number] Jb Segovia MD Start: 07-07-2013 take 1 tablet by oneida th two times weekly VITAMIN D (ERGOCALCIFEROL) 71894 UNIT CAPS One tablet by mouth twice weekly ERGOCALCIFEROL [id number] Jb Segovia MD take 1.25 mg by mout h every week vitamin D (ERGOCALCIFEROL) 1.25 MG (26631 UT) CAPS capsule Take 50,000 Units by mouth once a week Mondays and fridays 0 Active 4 ml furosemide 10 mg/ml injection (3 sources) Loop Diuretic Start: 02-11-2021 End: 02-12-2021 furosemide (LASIX) injection 20 mg Start: 02-10-2021 End: 02-10-2021 furosemide (LASIX) injection 40 mg ibandronic acid 150 mg oral tablet (8 sources) Bisphosphonate Start: 12-18-2016 IBANDRONATE SO DIUM 150 MG TABS monthly IBANDRONATE SODIUM [id number] Erna Hdez NP Start: 12-18-2016 IBANDRONATE SO DIUM 150 MG TABS weekly IBANDRONATE SODIUM [id number] Dora Delgado PA-C insulin regular (MYXREDLIN) 100 units in sodium chloride 0.9 % 100 ml infusion (1 source) Start: 02-09-2021 End: 02-11-2021 take 1 [IU] intravenous route every hour 1 Units/hr (1 mL/hr), Intravenous, at 1 mL/hr, CONTINUOUS, Starting 02/09/21 at 1815 Target glucose 90-120mg/dl; if glucose <40 or >500 draw confirmation and send to lab; While on insulin drip follow hypoglycemic orders as outlined below. o Blood Glucose Initial Administration Rate/Additional IV Insulin Bolus protocol > 90-120mg/dl - 1 unit/hr 121-150mg/dl - 2 units/hr 150-180mg/dl - 2.5 units/hr 181- 240mg/dl - 3.5 units/hr + 4 unit bolus 241-300mg/dl - 5 units/hr + 6 unit bolus 301-360mg/dl - 6.5 units/hr + 8 unit bolus > 360mg/dl - 8 units/hr + 10 unit bolus o Glucose by finger stick 30 minutes after infusion has started, then per Floor Blood Glucose guidelines below o When BGT is between 90-120mg/dl with < 15mg/dl change and insulin rate remains unchanged x 3 hours, then may test every 2 hours. o Adjust insulin infusion rate in response to blood glucose levels as follows: o < 60mg/dl: BGT check in 30 minutes: 1. Stop infusion. 2. Give 25ml dextrose 50% IVP, recheck BG in 30 mins When BG is > 80 and < 120mg/dl, restart drip at 50% of the previous rate, recheck in 30 minutes. If BG > 120, restart drip at 75% of the previous rate, recheck in 30 minutes o 60-69mg/dl: BGT check in 30 minutes: 1. Stop infusion. If previous BG > 100mg/dl give 25ml dextrose 50% IVP, recheck BG in 30 minutes. When BG > 80 and < 120mg/dl, restart drip at 50% of previous rate, recheck BG in 30 minutes. If BG > 120mg/dl or more restart drip at 75% of the previous rate, recheck BG in 30 minutes. o 70-89mg/dl: BGT check every 1 hour. Has BG dropped > 10mg/dl from the last BG? Yes: Decrease rate by 50% Has BG dropped from the last BG < 10mg/dl or = to 10mg/dl? Yes: decrease the rate by 0.5units/hr. If BG greater than or equal to the last test, maintain same rate. o 90-120mg/dl: BGT check in 1 hour. TITRATE DRIP RATE TO MAINTAIN THIS RANGE Has BG increased > 10mg/dl from the last BG? Yes: increase rate by 0.5units/hr. Has BG dropped from the last BG by more than 10mg/dl? Yes: decrease the rate by 0.5 units/hr: No: Same rate. o 121-150mg/dl: BGT check in 1 hour Has BG dropped 20-50mg/dl from last BG? Yes: Same rate. Has BG increased from last BG by > 20mg/dl? Yes: increase rate by 1.5 units/hr. Has BG dropped by more than 50mg/dl? Yes: decrease rate by 50%. Is BG within 20mg/dl of the last test? Yes: increase rate by 1 unit/hr. o 151-180mg/dl: BGT check every 1 hour Has BG dropped > 30mg/dl? Yes: same rate Has BG dropped from last BG by < 30 mg/dl OR is BG higher than the last test? Yes: increase rate by 1.5 units/hr. o 181-240mg/dl: BGT check in 1 hour Is BG 50-100mg/dl lower from the last BG? Yes: continue at the same rate. Is BG lower than the last BG by >100mg/dl? Yes: decrease rate by 25%. Is BG lower than the last BG by < 50mg/dl OR higher than the last test? Yes: bolus with 4 units insulin IV and increase rate by 2 units/hr. Note: If BG 181-240mg/dl and has not dropped after 3 consecutive increases in insulin, then bolus with 4 units and double the insulin rate. o > 240mg/dl: BGT check in 30 minutes Has BG dropped > 100mg/dl from last BG? Yes: same rate Is BG lower than the last test by < 100mg/dl OR higher than the last test? Yes: IV Bolus with regular insulin as per IV infusion Bolus dosage scale and double insulin drip rate. o > 300mg/dl: Continue to follow the appropriate interventions based on BGT and call the It Security Administrator. o Maximum insulin infusion drip rate may not exceed 30 units/hr; Insulin drip may NOT be discontinued unless approved by It Security Administrator. Discontinue all subcutaneous Insulin orders (if patient is on subcutaneous insulin). Post-op 24 hr isosorbide mononitrate 30 mg extended release oral tablet (20 sources) Nitrate Vasodilator Start: 12-08-2015 End: 02-13-2021 take 30 mg by mouth once daily 30 mg, Oral, DAILY, First dose on Pamela 02/03/21 at 1015 Do not crush or chew. Start: 03-11-2012 End: 05-20-2012 take 1 tablet by mouth twice daily ISOSORBIDE MONONITRATE 20 MG TABS One tablet by mouth twice daily ISOSORBIDE MONONITRATE [id number] Bernard Alex MD isosorbide dinitrate 20 mg oral tablet (6 sources) Nitrate Vasodilator Start: 02-20-2011 take 1 tablet by mouth twice daily ISOSORBIDE DINITRATE 20 MG TABS One tablet by mouth twice daily (Ismo) ISOSORBIDE DINITRATE [id number] Marija Scales lansoprazole 30 mg extended release oral tablet (12 sources) Proton Pump Inhibitor Start: 09-20-2012 End: 08-17-2014 take 1 tablet by mouth once daily LANSOPRAZOLE 30 MG TBDP One tablet by mouth daily LANSOPRAZOLE Bernard Alex MD lisinopril 10 mg oral tablet (12 sources) Angiotensin Converting Enzyme Inhibitor Start: 05-07-2012 End: 07-07-2013 take 1 tablet by mouth once daily LISINOPRIL 10 MG TABS One tablet by mouth daily LISINOPRIL [id number] Olinda Penn, RN LORazepam 0.5 mg oral tablet (1 source) Benzodiazepine Start: 02-02-2021 End: 02-02-2021 LORazepam (ATIVAN) tablet 0.5 mg metFORMIN hydrochloride 500 mg oral tablet (9 sources) Biguanide Start: 12-13-2015 take 1 tablet by mouth twice daily METFORMIN HCL 500 MG TABS One tablet by mouth twice daily METFORMIN HCL [id number] Jb Segovia MD Start: 12-13-2015 take 1 tablet by oneida th twice daily METFORMIN HCL 1000 MG TABS One tablet by mouth twice daily METFORMIN HCL [id number] Erna Hdez [employer] 24 hr niacin 500 mg extended release oral tablet (18 sources) Nicotinic Acid Start: 02-20-2011 End: 09-20-2015 take 1 tablet by mouth at bedtime NIASPAN 500 MG CR-TABS 1 tablet by mouth at bedtime, take ASA 30 mins before NIACIN (ANTIHYPERLIPIDEMIC) [id number] Dora Delgado PA-C Start: 02-20-2011 End: 09-20-2015 take 1 tablet by mouth at bedtime NIASPAN 500 MG CR-TABS 1 tablet by mouth at bedtime, take ASA 30 mins before NIACIN (ANTIHYPERLIPIDEMIC) [id number] Dora Delgado PA-C niCARdipine (CARDENE) 25 mg in sodium chloride 0.9 % 250 mL infusion (1 source) Start: 02-09-2021 End: 02-10-2021 5 mg/hr (50 mL/hr), Intravenous, at 50 mL/hr, CONTINUOUS PRN, 1st line agent for hypertension: Initiate if SBP greater than 130, Starting Sun02/09/21 at 1445 Titrate to keep SBP less than 130 but greater than 90 Max Dose: 15 mg/hr Titrate at 2.5 mg/hr no faster than every 15 minutes May titrate outside of defined titration parameters (increments and frequency) under the direction of the provider. If SBP falls below goal, wean drip; titrate at 2.5 mg/hr no faster than every 15 minutes to goal nitroglycerin 0.4 mg sublingual tablet (19 sources) Nitrate Vasodilator Start: 02-20-2011 End: 02-13-2021 NITROSTAT 0.4 MG SUBL 1 tablet under tongue every 5 min up to 3 X NITROGLYCERIN [id number] Jb Segovia MD pravastatin sodium 80 mg oral tablet (12 sources) HMG-CoA Reductase Inhibitor Start: 01-25-2012 End: 02-06-2012 take 1 tablet by mouth once daily at bedtime PRAVACHOL 80 MG TABS One tablet by mouth daily at bedtime 01/25/12 HOLD for one week and call re: myalgias PRAVASTATIN SODIUM [id number] Ethel Benavides RN 100 ml propofol 10 mg/ml injection (1 source) General Anesthetic Start: 02-09-2021 End: 02-10-2021 10 mcg/kg/min 97.5 kg (5.85 mL/hr, rounded to 5.9 mL/hr), Intravenous, at 5.9 mL/hr, CONTINUOUS, Starting 02/09/21 at 1815 For sedation, titrate to RASS +1 to -1 Dose Range: 5 to 50 mcg/kg/min Max dose: 50 mcg/kg/min Contact physician if max dose does not achieve desired response If RASS 1 point below goal - decrease rate by 5mcg/kg/min no faster than every 5 min If RASS 2 points below goal- decrease rate by 10mcg/kg/min no faster than every 5 min If RASS at goal, continue current rate If RASS 2 or more points above goal - increase rate by 10mcg/kg/min no faster than every 5 min If RASS 1 point above goal - increase rate by 5mcg/kg/min no faster than every 5 min If after titration rate change patient exhibits adverse hemodynamic response, next titration rate change may be adjusted by one-half of the previous rate change If patient fails sedation interruption, resume propofol titration at 50% of previous rate Do not administer through the same I.V. catheter with blood or plasma. Tubing and any unused portions of propofol vials should be discarded after 12 hours. Post-op rivaroxaban 10 mg oral tablet (12 sources) Factor Xa Inhibitor Start: 09-17-2015 End: 09-20-2015 take 1 tablet by mouth once daily XARELTO 10 MG TABS One tablet by mouth daily RIVAROXABAN [id number] Odilia Garcia RN rosuvastatin calcium 10 mg oral tablet (12 sources) HMG-CoA Reductase Inhibitor Start: 03-11-2012 End: 12-02-2012 take 1 tablet by mouth at bedtime CRESTOR 10 MG TABS One tablet by mouth at bedtime. ROSUVASTATIN CALCIUM [id number] Bernard Alex MD simvastatin 40 mg oral tablet (12 sources) HMG-CoA Reductase Inhibitor Start: 02-20-2011 End: 01-25-2012 take 1 tablet by mouth at bedtime SIMVASTATIN 40 MG TABS One tablet by mouth at bedtime. SIMVASTATIN [id number] Marija Scales Problems Active Problems Problem Classification Problem Date Documented Da te Episodic/Chronic Coronary atherosclerosis and other heart disease (20 sources) Coronary atherosclerosis; Translations: [Coronary arteriosclerosis] Onset: 02-20-2011 06-20-2016 Chronic Coronary atherosclerosis and other heart disease (8 sources) Coronary angioplasty status; Translations: [History of coronary artery bypass grafting] Onset: 02-20-2011 02-20-2011 Episodic Diabetes mellitus without complication (1 source) Diabetes mellitus; Translations: [Diabetes] Onset: 02-08-2021 02-08-2021 Chronic Disorders of lipid metabolism (6 sources) Hyperlipidemia; Translations: [Hyperlipidemia, unspecified] Onset: 02-20-2011 02-20-2011 Chronic Essential hypertension (6 sources) Hypertensive disorder; Translations: [Essential (primary) hypertension] Onset: 02-20-2011 02-20-2011 Chronic Other nutritional; endocrine; and metabolic disorders (11 sources) Body mass index (BMI) 38.0-38.9, adult; Translations: [Body mass index (BMI) 40.0-44.9, adult] Onset: 02-09-2014 Resolved: 12-18-2016 12-18-2016 Chronic Other nutritional; endocrine; and metabolic disorders (2 sources) Obesity; Translations: [Class 2 severe obesity with serious comorbidity and body mass index (BMI) of 37.0 to 37.9 in adult (HCC)] 02-13-2021 Chronic Other nutritional; endocrine; and metabolic disorders (10 sources) Body mass index (BMI) 40.0-44.9, adult; Translations: [Body mass index (BMI) 40.0-44.9, adult] Onset: 12-13-2015 Resolved: 12-18-2016 12-18-2016 Chronic Other nutritional; endocrine; and metabolic disorders (10 sources) Finding of body mass index; Translations: [Body mass index (BMI) 38.0-38.9, adult] Onset: 08-17-2014 Resolved: 03-01-2015 03-01-2015 Chronic Other nutritional; endocrine; and metabolic disorders (5 sources) Body mass index (BMI) 39.0-39.9, adult; Translations: [Body Mass Index 39.0-39.9, adult] Onset: 02-09-2014 02-09-2014 Chronic Unclassified (1 source) Long-term drug therapy; Translations: [Other mcfp (current) drug therapy] Onset: 02-20-2011 02-20-2011 Past or Other Problems Problem Classification Problem Date Documented Da te Episodic/Chronic Other aftercare (5 sources) Long-term drug therapy; Translations: [Other mcfp (current) drug therapy] Onset: 02-20-2011 02-20-2011 Episodic Residual codes; unclassified (6 sources) Family history of ischemic heart disease and other diseases of the circulatory system; Translations: [Family history of coronary arteriosclerosis] 08-17-2014 Episodic Results Test Name Value Interpretation Reference Range Facility Basic Metabolic Panelon 01-25 Calcium [Mass/Vol] 8.1 mg/dL Low 8.4-10.4 [facility] Comment on above: Performed By: #### B GLU #### [facility] [address] [place], [place] Glucose [Mass/Vol] 125 mg/dL High 70-100 [facility] Comment on above: Performed By: #### B GLU #### [facility] [address], [place] Urea nitrogen [Mass/Vol] 20 mg/dL Normal 7-20 [facility] Comment on above: Performed By: #### B GLU #### [facility] [address] [place], [place] Anion gap [Moles/Vol] 4 mmol/L Normal 3-13 [facility] Comment on above: Performed By: #### B GLU #### [facility] [address], [place] CO2 [Moles/Vol] 34 mmol/L High 22-30 [facility] Comment on above: Performed By: #### B GLU #### [place] [address] [place], [place] Creatinine [Mass/Vol] 0.61 mg/dL Normal 0.52-1.25 [facility] Comment on above: Performed By: #### B GLU #### [facility] [address], [place] GFR/1.73 sq M.predicted among blacks MDRD (S/P/Bld) [Vol rate/Area] mL/min/{1.73_m2} Normal >60 [facility] Comment on above: Performed By: #### B GLU #### [facility] [address], [place] GFR/1.73 sq M.predicted among non-blacks MDRD (S/P/Bld) [Vol rate/Area] 89.1 mL/min/{1.73_m2} Normal >60 [facility] Comment on above: Result Comment: KDIG O guidelines provide the following GFR categories: Stage GFR(ml/min/1.73 m2) Terms G1 >=90 Normal or high G2 60-89 Mildly decreased* G3a 45-59 Mildly to moderately decreased G3b 30-44 Moderately to severely decreased G4 15-29 Severely decreased G5 <15 Kidney failure *Relative to young adult level. In the absence of evidence of kidney damage, neither GFR category G1 nor G2 fulfill the criteria for CKD. The CKD-EPI equation is validated in individuals 18 years of age and older. Currently the best equation for estimating glomerular filtration rate (GFR) from serum creatinine in children is the Bedside Garcia equation. It is less accurate in patients with extremes of muscle mass, restriction of dietary protein, ingestion of creatine, extra-renal metabolism of creatinine, or treatment with medications that affect renal tubular creatinine secretion. Performed By: #### B GLU #### [facility] [address] [place], [place] Potassium [Moles/Vol] 3.2 mmol/L Low 3.5-5.1 [facility] Comment on above: Performed By: #### B GLU #### [place] [address] [address] [place], [place] Chloride [Moles/Vol] 100 mmol/L Normal 98-107 [facility] Comment on above: Performed By: #### B GLU #### [place] [address] [place], [place] Sodium [Moles/Vol] 137 mmol/L Normal 135-145 [facility] Comment on above: Performed By: #### B GLU #### [place] [address] [place], [place] Anion gap [Moles/Vol] 4 mmol/L 3 - 13 mmol/L [facility] Work Phone: Calcium [Mass/Vol] 8.1 mg/dL Low 8.4 - 10. 4 mg/dL [facility] Work Phone: Chloride [Moles/Vol] 100 mmol/L 98 - 10 7 mmol/L [facility] Work Phone: CO2 [Moles/Vol] 34 mmol/L High 22 - 30 mmol/L [facility] Work Phone: Creatinine [Mass/Vol] 0.61 mg/dL 0.52 - 1.25 mg/dL [facility] Work Phone: EGFR IF NonAfrican [place]i 89.1 mL/min >60 [facility] Work Phone: Comment on above: KDIGO guidelines pro vide the following GFR categories: Stage GFR(ml/min/1.73 m2) Terms G1 >=90 Normal or high G2 60-89 Mildly decreased* G3a 45-59 Mildly to moderately decreased G3b 30-44 Moderately to severely decreased G4 15-29 Severely decreased G5 <15 Kidney failure *Relative to young adult level. In the absence of evidence of kidney damage, neither GFR category G1 nor G2 fulfill the criteria for CKD. The CKD-EPI equation is validated in individuals 18 years of age and older. Currently the best equation for estimating glomerular filtration rate (GFR) from serum creatinine in children is the Bedside Garcia equation. It is less accurate in patients with extremes of muscle mass, restriction of dietary protein, ingestion of creatine, extra-renal metabolism of creatinine, or treatment with medications that affect renal tubular creatinine secretion. GFR/1.73 sq M predicted among blacks MDRD (S/P/Bld) [Vol rate/Area] mL/min/{1.73_m2} >60 mL/min [facility] Work Phone: Glucose [Mass/Vol] 125 mg/dL High 70 - 100 mg/dL [facility] Work Phone: [phone] Interpretation and review of laboratory results Abnormal [employer] Work Phone: [phone] Potassium [Moles/Vol] 3.2 mmol/L Low 3.5 - 5.1 mmol/L [facility] Work Phone: [phone] Sodium [Moles/Vol] 137 mmol/L 135 - 145 mmol/L [facility] Work Phone: [phone] Urea nitrogen [Mass/Vol] 20 mg/dL 7 - 20 mg/dL [facility] Work Phone: CBCon 02-13-2021 Erythrocyte distribution width (RBC) [Ratio] 13.8 % 11.5 - 14.5 % [facility] Work Phone: [phone] Hematocrit (Bld) [Volume fraction] 30.6 % Low 35.0 - 47.0 % [facility] Work Phone: [phone] Hemoglobin (Bld) [Mass/Vol] 10.2 g/dL Low 11.7 - 16.0 g/dL [facility] Work Phone: [phone] Interpretation and review of laboratory results Abnormal [facility] Work Phone: MCH (RBC) [Entitic mass] 29.4 pg 26.0 - 34.0 pg [facility] Work Phone: [phone] MCHC (RBC) [Mass/Vol] 33.2 % 32.0 - 36.0 % [facility] Work Phone: MCV (RBC) [Entitic vol] 88.6 fL 79.0 - 98.0 fL [facility] Work Phone: Platelet mean volume (Bld) [Entitic vol] 8.2 fL 7.4 - 10.4 fL [facility] Work Phone: [phone] Platelets (Bld) [#/Vol] 288 10*3/uL 140 - 440 10*3/uL [facility] Work Phone: [phone] RBC (Bld) [#/Vol] 3.46 10*6/uL Low 3.80 - 5.2 0 10*6/uL [facility] Work Phone: [phone] WBC (Bld) [#/Vol] 12.8 10*3/uL High 3.6 - 10.7 10*3/uL [facility] Work Phone: Test Performed by [facility], [address] [place] [id number] [facility] Work Phone: CR Chest Portableon 02-14-20 21 CR Chest Portable Patient Name: DANII WOLFE Diagnostic Radiology ACCESSION EXAM DATE/TIME PROCEDURE ORDERING PROVIDER [id number] 02/13/2021 05:57 EDT CR Chest Portable [id number] DMITRY BARTLETT CPT code 56158 Reason For Exam (CR Chest Portable) Shortness of breath Report CHEST CLINICAL INDICATION: Shortness of breath TECHNIQUE: AP COMPARISON: 02/12/2021 FINDINGS: Postsurgical changes are noted along the anterior mediastinum. Interval removal of the left-sided chest tubes. Stable small left apical pneumothorax. The heart and mediastinum are normal. The lungs are clear. Costophrenic angles are sharp. Degenerative changes are noted within the thoracic spine. IMPRESSION: Stable small left apical pneumothorax. Report Dictated on Final Dictated: 02/13/2021 7:47 am Dictating Physician: DO SARGENT RACHEL Signed Date and Time: 02/13/2021 7:49 am Signed by: DO SARGENT RACHEL Transcribed Date and Time: 02/13/2021 7:47 Normal [facility] Hemogramon 02-13-2021 Erythrocyte distribution width (RBC) [Ratio] 13.8 % Normal 11.5-14.5 [facility] Comment on above: Performed By: #### B GLU #### [place] [address] [place], [place] Hematocrit (Bld) [Volume fraction] 30.6 % Low 35.0-47.0 [facility] Comment on above: Performed By: #### B GLU #### [place] [address] [place], [place] Hemoglobin (Bld) [Mass/Vol] 10.2 g/dL Low 11.7-16.0 [facility] Comment on above: Performed By: #### B GLU #### [place] [address] [address] [place], [place] MCH (RBC) [Entitic mass] 29.4 pg Normal 26.0-34.0 [facility] Comment on above: Performed By: #### B GLU #### [place] [address] [place], [place] MCHC 33.2 % Normal 32.0-36.0 [facility] Comment on above: Performed By: #### B GLU #### [place] [address] [address] [place], [place] MCV (RBC) [Entitic vol] 88.6 fL Normal 79.0-98.0 [facility] Comment on above: Performed By: #### B GLU #### [address] Platelet mean volume (Bld) [Entitic vol] 8.2 fL Normal 7.4-10.4 [facility] Comment on above: Performed By: #### B GLU #### [address] [place], [place] Platelets (Bld) [#/Vol] 288 10*3/uL Normal 140-440 [facility] Comment on above: Performed By: #### B GLU #### [place] [address] [place] [address] RBC (Bld) [#/Vol] 3.46 10*6/uL Low 3.80-5.20 [facility] Comment on above: Performed By: #### B GLU #### [place] [address] [place] [address] WBC (Bld) [#/Vol] 12.8 10*3/uL High 3.6-10.7 [facility] Comment on above: Performed By: #### B GLU #### [place] [address] [place] [address] Magnesiumon 02-13-2021 Magnesium [Mass/Vol] 2.0 mg/dL Normal 1.6-2.3 [facility] Comment on above: Performed By: #### B GLU #### [place] [address] [place] [address] Magnesium [Mass/Vol] 2.0 mg/dL 1.6 - 2 .3 mg/dL [facility] Work Phone: Otheron 02-13-2021 Test Performed by [facility], [address] [place] [id number] [facility] Work Phone: XR CHEST PORTABLEon 02-14-20 21 [place], [facility] Incoming Radiology Results From [facility] - 02/13/2021 7:50 AM EDT Patient Name: DANII WOLFE Diagnostic Radiology ACCESSION EXAM DATE/TIME PROCEDURE ORDERING PROVIDER [id number] 02/13/2021 05:57 EDT CR Chest Portable [id number] DMITRY BARTLETT CPT code 91434 Reason For Exam (CR Chest Portable) Shortness of breath Report CHEST CLINICAL INDICATION: Shortness of breath TECHNIQUE: AP COMPARISON: 02/12/2021 FINDINGS: Postsurgical changes are noted along the anterior mediastinum. Interval removal of the left-sided chest tubes. Stable small left apical pneumothorax. The heart and mediastinum are normal. The lungs are clear. Costophrenic angles are sharp. Degenerative changes are noted within the thoracic spine. IMPRESSION: Stable small left apical pneumothorax. Report Dictated on --- Final --- Dictated: 02/13/2021 7:47 am Dictating Physician: DO SARGENT RACHEL Signed Date and Time: 02/13/2021 7:49 am Signed by: DO SARGENT RACHEL Transcribed Date and Time: 02/13/2021 7:47 [facility] Work Phone: Patient Name: DANII WOLFE Diagnostic Radiology ACCESSION EXAM DATE/TIME PROCEDURE ORDERING PROVIDER [id number] 02/13/2021 05:57 EDT CR Chest Portable [id number] DMITRY BEGUM CPT code 69328 Reason For Exam (CR Chest Portable) Shortness of breath Report CHEST CLINICAL INDICATION: Shortness of breath TECHNIQUE: AP COMPARISON: 02/12/2021 FINDINGS: Postsurgical changes are noted along the anterior mediastinum. Interval removal of the left-sided chest tubes. Stable small left apical pneumothorax. The heart and mediastinum are normal. The lungs are clear. Costophrenic angles are sharp. Degenerative changes are noted within the thoracic spine. IMPRESSION: Stable small left apical pneumothorax. Report Dictated on --- Final --- Dictated: 02/13/2021 7:47 am Dictating Physician: DO SARGENT RACHEL Signed Date and Time: 02/13/2021 7:49 am Signed by: DO SARGENT RACHEL Transcribed Date and Time: 02/13/2021 7:47 [facility] Work Phone: Basic Metabolic Panelon 01-25 Anion gap [Moles/Vol] 7 mmol/L Normal 3-13 [facility] Comment on above: Performed By: #### M G3, BMP3, HEMOG ####[address] [address] Calcium [Mass/Vol] 8.5 mg/dL Normal 8.4-10.4 [facility] Comment on above: Performed By: #### M G3, BMP3, HEMOG ####[place] [address] [place], [place] CO2 [Moles/Vol] 31 mmol/L High 22-30 [facility] Comment on above: Performed By: #### M G3, BMP3, HEMOG ####[place] [address] [place], [place] Glucose [Mass/Vol] 145 mg/dL High 70-100 [facility] Comment on above: Performed By: #### M G3, BMP3, HEMOG ####[place] [place], [place] Urea nitrogen [Mass/Vol] 19 mg/dL Normal 7-20 [facility] Comment on above: Performed By: #### M G3, BMP3, HEMOG ####[place] [address] [place], [place] Creatinine [Mass/Vol] 0.62 mg/dL Normal 0.52-1.25 [facility] Comment on above: Performed By: #### M G3, BMP3, HEMOG ####[place] [address] [place], [place] GFR/1.73 sq M.predicted among blacks MDRD (S/P/Bld) [Vol rate/Area] mL/min/{1.73_m2} Normal >60 [facility] Comment on above: Performed By: #### M G3, BMP3, HEMOG ####[place] [place], [place] GFR/1.73 sq M.predicted among non-blacks MDRD (S/P/Bld) [Vol rate/Area] 88.6 mL/min/{1.73_m2} Normal >60 [facility] Comment on above: Result Comment: KDIG O guidelines provide the following GFR categories: Stage GFR(ml/min/1.73 m2) Terms G1 >=90 Normal or high G2 60-89 Mildly decreased* G3a 45-59 Mildly to moderately decreased G3b 30-44 Moderately to severely decreased G4 15-29 Severely decreased G5 <15 Kidney failure *Relative to young adult level. In the absence of evidence of kidney damage, neither GFR category G1 nor G2 fulfill the criteria for CKD. The CKD-EPI equation is validated in individuals 18 years of age and older. Currently the best equation for estimating glomerular filtration rate (GFR) from serum creatinine in children is the Bedside Garcia equation. It is less accurate in patients with extremes of muscle mass, restriction of dietary protein, ingestion of creatine, extra-renal metabolism of creatinine, or treatment with medications that affect renal tubular creatinine secretion. Performed By: #### M TERRIE Chau3, HEMOG ####[facility] [employer] [id number] [place] Potassium [Moles/Vol] 4.0 mmol/L Normal 3.5-5.1 [facility] Comment on above: Result Comment: Slig htly hemolysed, interpret with caution. Performed By: #### TERRIE Judge3, HEMOG ####[place] [address] [place] Sodium [Moles/Vol] 137 mmol/L Normal 135-145 [facility] Comment on above: Performed By: #### TERRIE Judge3, HEMOG ####[facility] [employer] [id number] [place] Chloride [Moles/Vol] 99 mmol/L Normal 98-107 [facility] Comment on above: Performed By: #### Ruchi Chau BMP3, HEMOG ####[place] [address] [place], [place] Anion gap [Moles/Vol] 7 mmol/L 3 - 13 mmol/L [facility] Work Phone: Calcium [Mass/Vol] 8.5 mg/dL 8.4 - 10. 4 mg/dL [facility] Work Phone: Chloride [Moles/Vol] 99 mmol/L 98 - 10 7 mmol/L [facility] Work Phone: CO2 [Moles/Vol] 31 mmol/L High 22 - 30 mmol/L [facility] Work Phone: Creatinine [Mass/Vol] 0.62 mg/dL 0.52 - 1.25 mg/dL [employer] Work Phone: [phone] EGFR IF NonAfrican [place]i 88.6 mL/min >60 [employer] Work Phone: [phone] Comment on above: KDIGO guidelines pro vide the following GFR categories: Stage GFR(ml/min/1.73 m2) Terms G1 >=90 Normal or high G2 60-89 Mildly decreased* G3a 45-59 Mildly to moderately decreased G3b 30-44 Moderately to severely decreased G4 15-29 Severely decreased G5 <15 Kidney failure *Relative to young adult level. In the absence of evidence of kidney damage, neither GFR category G1 nor G2 fulfill the criteria for CKD. The CKD-EPI equation is validated in individuals 18 years of age and older. Currently the best equation for estimating glomerular filtration rate (GFR) from serum creatinine in children is the Bedside Garcia equation. It is less accurate in patients with extremes of muscle mass, restriction of dietary protein, ingestion of creatine, extra-renal metabolism of creatinine, or treatment with medications that affect renal tubular creatinine secretion. GFR/1.73 sq M predicted among blacks MDRD (S/P/Bld) [Vol rate/Area] mL/min/{1.73_m2} >60 mL/min [employer] Work Phone: [phone] Glucose [Mass/Vol] 145 mg/dL High 70 - 100 mg/dL [employer] Work Phone: [phone] Interpretation and review of laboratory results Abnormal [employer] Work Phone: [phone] Potassium [Moles/Vol] 4.0 mmol/L 3.5 - 5.1 mmol/L [employer] Work Phone: [phone] Comment on above: Slightly hemolysed, interpret with caution. Sodium [Moles/Vol] 137 mmol/L 135 - 145 mmol/L [employer] Work Phone: [phone] Urea nitrogen [Mass/Vol] 19 mg/dL 7 - 20 mg/dL [employer] Phone: [phone] CBCon 02-12-2021 Erythrocyte distribution width (RBC) [Ratio] 13.5 % 11.5 - 14.5 % [employer] Work Phone: [phone] Hematocrit (Bld) [Volume fraction] 32.6 % Low 35.0 - 47.0 % [facility] Work Phone: Hemoglobin (Bld) [Mass/Vol] 10.8 g/dL Low 11.7 - 16.0 g/dL [facility] Work Phone: Interpretation and review of laboratory results Abnormal [facility] Work Phone: MCH (RBC) [Entitic mass] 29.2 pg 26.0 - 34.0 pg [facility] Work Phone: [phone] MCHC (RBC) [Mass/Vol] 33.0 % 32.0 - 36.0 % [facility] Work Phone: MCV (RBC) [Entitic vol] 88.5 fL 79.0 - 98.0 fL [facility] Work Phone: Platelet mean volume (Bld) [Entitic vol] 9.0 fL 7.4 - 10.4 fL [facility] Work Phone: Platelets (Bld) [#/Vol] 232 10*3/uL 140 - 440 10*3/uL [facility] Work Phone: RBC (Bld) [#/Vol] 3.68 10*6/uL Low 3.80 - 5.2 0 10*6/uL [facility] Work Phone: WBC (Bld) [#/Vol] 17.2 10*3/uL High 3.6 - 10.7 10*3/uL [facility] Work Phone: Test Performed by [facility], [address] [place] [address] [facility] Work Phone: CR Chest Portableon 02-13-20 21 CR Chest Portable Patient Name: DANII WOLFE Diagnostic Radiology ACCESSION EXAM DATE/TIME PROCEDURE ORDERING PROVIDER [id number] 02/12/2021 05:59 EDT CR Chest Portable [id number] DMITRY BARTLETT CPT code 87144 Reason For Exam (CR Chest Portable) Shortness of breath Report Portable chest 02/12/2021: Clinical Information: Respiratory distress. Findings: A single AP portable view of the chest was obtained at 521 hours. Comparison was made to the prior study prior day. The various lines and tubes are unchanged. No pulmonary vascular congestion or consolidation is currently identified. When compared to prior day's study, there is now a tiny left apical pneumothorax. Report Dictated on Final Dictated: 02/12/2021 7:13 am Dictating Physician: MD ARNOLD RISA Signed Date and Time: 02/12/2021 7:14 am Signed by: MD ARNOLD RISA Transcribed Date and Time: 02/12/2021 7:13 Normal [facility] Glucose,Bedsideon 02-12-2021 Glucose [Mass/Vol] 138 mg/dL High 70-100 [facility] Comment on above: Result Comment: Test performed by glucose meter. Results may be 10%-15% lower than serum/plasma values. (CLIA ID [id number]) Performed By: #### B GLU ####[facility] [address] [place], [place] Glucose [Mass/Vol] 175 mg/dL High 70-100 [facility] Comment on above: Result Comment: Test performed by glucose meter. Results may be 10%-15% lower than serum/plasma values. (CLIA ID [id number]) Performed By: #### B GLU #### [facility] [address] [place], [place] Glucose [Mass/Vol] 200 mg/dL High 70-100 [facility] Comment on above: Result Comment: Test performed by glucose meter. Results may be 10%-15% lower than serum/plasma values. (CLIA ID [id number]) Performed By: #### B GLU #### [facility] [address] [place], [place] Hemogramon 02-12-2021 Erythrocyte distribution width (RBC) [Ratio] 13.5 % Normal 11.5-14.5 [facility] Comment on above: Performed By: #### M G3, BMP3, HEMOG ####[facility] [address] [place], [place] Hematocrit (Bld) [Volume fraction] 32.6 % Low 35.0-47.0 [facility] Comment on above: Performed By: #### KENNY Judge, HEMOG ####[address] [place], [place] Hemoglobin (Bld) [Mass/Vol] 10.8 g/dL Low 11.7-16.0 [facility] Comment on above: Performed By: #### KENNY Judge, HEMOG ####[address] MCH (RBC) [Entitic mass] 29.2 pg Normal 26.0-34.0 [facility] Comment on above: Performed By: #### KENNY Judge, HEMOG ####[address] MCHC 33.0 % Normal 32.0-36.0 [facility] Comment on above: Performed By: #### KENNY Judge, HEMOG ####[address] MCV (RBC) [Entitic vol] 88.5 fL Normal 79.0-98.0 [facility] Comment on above: Performed By: #### KENNY Judge, HEMOG ####[address] Platelet mean volume (Bld) [Entitic vol] 9.0 fL Normal 7.4-10.4 [facility] Comment on above: Performed By: #### KENNY Judge, HEMOG ####[address] Platelets (Bld) [#/Vol] 232 10*3/uL Normal 140-440 [facility] Comment on above: Performed By: #### KENNY Judge, HEMOG ####[address] RBC (Bld) [#/Vol] 3.68 10*6/uL Low 3.80-5.20 [facility] Comment on above: Performed By: #### KENNY Judge, HEMOG ####[facility] [address] [place] [address] WBC (Bld) [#/Vol] 17.2 10*3/uL High 3.6-10.7 [facility] Comment on above: Performed By: #### M G3TERRIE3, HEMOG ####[facility] [address] [place] [address] Magnesiumon 02-12-2021 Magnesium [Mass/Vol] 2.1 mg/dL Normal 1.6-2.3 [facility] Comment on above: Result Comment: Slig htly hemolysed, interpret with caution. Performed By: #### M G3, TERRIE3, HEMOG ####[facility] [place] [address] Magnesium [Mass/Vol] 2.1 mg/dL 1.6 - 2 .3 mg/dL [facility] Work Phone: Comment on above: Slightly hemolysed, interpret with caution. Otheron 02-12-2021 Test Performed by [facility], [facility] [place] [address] [facility] Work Phone: POCT Glucoseon 02-12-2021 Glucose [Mass/Vol] 138 mg/dL High 70 - 100 mg/dL [facility] Work Phone: Comment on above: Test performed by gl ucose meter. Results may be 10%-15% lower than serum/plasma values. (CLIA ID [id number]) Interpretation and review of laboratory results Abnormal [facility] Work Phone: Test Performed by [facility], [facility] [place] [address] [facility] Work Phone: Glucose [Mass/Vol] 175 mg/dL High 70 - 100 mg/dL [facility] Work Phone: Comment on above: Test performed by gl ucose meter. Results may be 10%-15% lower than serum/plasma values. (CLIA ID [id number]) Interpretation and review of laboratory results Abnormal [facility] Work Phone: Test Performed by [facility], [facility] [place] [address] [facility] Work Phone: Glucose [Mass/Vol] 200 mg/dL High 70 - 100 mg/dL [facility] Work Phone: Comment on above: Test performed by gl ucose meter. Results may be 10%-15% lower than serum/plasma values. (CLIA ID [id number]) Interpretation and review of laboratory results Abnormal [facility] Work Phone: Test Performed by [facility], [address] [place] [address] [facility] Work Phone: XR CHEST PORTABLEon 02-13-20 Patient Name: DANII WOLFE Diagnostic Radiology ACCESSION EXAM DATE/TIME PROCEDURE ORDERING PROVIDER [id number] 02/12/2021 05:59 EDT CR Chest Portable [id number] CHOI CPT code 52518 Reason For Exam (CR Chest Portable) Shortness of breath Report Portable chest 02/12/2021: Clinical Information: Respiratory distress. Findings: A single AP portable view of the chest was obtained at 521 hours. Comparison was made to the prior study prior day. The various lines and tubes are unchanged. No pulmonary vascular congestion or consolidation is currently identified. When compared to prior day's study, there is now a tiny left apical pneumothorax. Report Dictated on --- Final --- Dictated: 02/12/2021 7:13 am Dictating Physician: MD ARNOLD RISA Signed Date and Time: 02/12/2021 7:14 am Signed by: MD ARNOLD RISA Transcribed Date and Time: 02/12/2021 7:13 [facility] Work Phone: Bunny, Jennifer Incoming Radiology Results From [facility] - 02/12/2021 7:16 AM EDT Patient Name: DANII WOLFE Diagnostic Radiology ACCESSION EXAM DATE/TIME PROCEDURE ORDERING PROVIDER [id number] 02/12/2021 05:59 EDT CR Chest Portable [id number] -DMITRY BEGUM CPT code 37904 Reason For Exam (CR Chest Portable) Shortness of breath Report Portable chest 02/12/2021: Clinical Information: Respiratory distress. Findings: A single AP portable view of the chest was obtained at 521 hours. Comparison was made to the prior study prior day. The various lines and tubes are unchanged. No pulmonary vascular congestion or consolidation is currently identified. When compared to prior day's study, there is now a tiny left apical pneumothorax. Report Dictated on --- Final --- Dictated: 02/12/2021 7:13 am Dictating Physician: MD ARNOLD RISA Signed Date and Time: 02/12/2021 7:14 am Signed by: MD ARNOLD RISA Transcribed Date and Time: 02/12/2021 7:13 [facility] Work Phone: Basic Metabolic Panelon 01-24 Calcium [Mass/Vol] 8.1 mg/dL Low 8.4-10.4 [facility] Comment on above: Performed By: #### H EMOG, BMP3, MG3 ####[facility] [address] [place] [address] Glucose [Mass/Vol] 84 mg/dL Normal 70-100 [facility] Comment on above: Performed By: #### H EMOG, BMP3, MG3 ####[facility] [address] [place] [address] Urea nitrogen [Mass/Vol] 17 mg/dL Normal 7-20 [facility] Comment on above: Performed By: #### H EMOG, BMP3, MG3 ####[facility] [employer] [place] [address] Anion gap [Moles/Vol] 7 mmol/L Normal 3-13 [facility] Comment on above: Performed By: #### H EMOG, BMP3, MG3 ####[facility] [address] [place] [address] CO2 [Moles/Vol] 28 mmol/L Normal 22-30 [facility] Comment on above: Performed By: #### H EMOG, BMP3, MG3 ####[address] [place], [place] Creatinine [Mass/Vol] 0.80 mg/dL Normal 0.52-1.25 [facility] Comment on above: Performed By: #### H KENNY PEPPER MG3 ####[address] [place] [address] GFR/1.73 sq M.predicted among blacks MDRD (S/P/Bld) [Vol rate/Area] 84.0 mL/min/{1.73_m2} Normal >60 [facility] Comment on above: Performed By: #### H KENNY PEPPER MG3 ####[address] [address] GFR/1.73 sq M.predicted among non-blacks MDRD (S/P/Bld) [Vol rate/Area] 72.4 mL/min/{1.73_m2} Normal >60 [facility] Comment on above: Result Comment: KDIG O guidelines provide the following GFR categories: Stage GFR(ml/min/1.73 m2) Terms G1 >=90 Normal or high G2 60-89 Mildly decreased* G3a 45-59 Mildly to moderately decreased G3b 30-44 Moderately to severely decreased G4 15-29 Severely decreased G5 <15 Kidney failure *Relative to young adult level. In the absence of evidence of kidney damage, neither GFR category G1 nor G2 fulfill the criteria for CKD. The CKD-EPI equation is validated in individuals 18 years of age and older. Currently the best equation for estimating glomerular filtration rate (GFR) from serum creatinine in children is the Bedside Garcia equation. It is less accurate in patients with extremes of muscle mass, restriction of dietary protein, ingestion of creatine, extra-renal metabolism of creatinine, or treatment with medications that affect renal tubular creatinine secretion. Performed By: #### H KENNY PEPPER MG3 ####[address] [place], [place] Chloride [Moles/Vol] 98 mmol/L Normal 98-107 [facility] Comment on above: Performed By: #### H KENNY PEPPER MG3 ####[address] [place] [address] Potassium [Moles/Vol] 3.2 mmol/L Low 3.5-5.1 [facility] Comment on above: Performed By: #### H TERRIE PEPPER3, MG3 ####[facility] [place] [address] Sodium [Moles/Vol] 133 mmol/L Low 135-145 [facility] Comment on above: Performed By: #### H TERRIE PEPPER3, MG3 ####[facility] [place] [address] Anion gap [Moles/Vol] 7 mmol/L 3 - 13 mmol/L [facility] Work Phone: Calcium [Mass/Vol] 8.1 mg/dL Low 8.4 - 10. 4 mg/dL [facility] Work Phone: Chloride [Moles/Vol] 98 mmol/L 98 - 10 7 mmol/L [facility] Work Phone: [phone] CO2 [Moles/Vol] 28 mmol/L 22 - 30 mmol/L [facility] Work Phone: Creatinine [Mass/Vol] 0.8 mg/dL 0.52 - 1.25 mg/dL [facility] Work Phone: EGFR IF NonAfrican Yemeni 72.4 mL/min >60 [facility] Work Phone: Comment on above: KDIGO guidelines pro vide the following GFR categories: Stage GFR(ml/min/1.73 m2) Terms G1 >=90 Normal or high G2 60-89 Mildly decreased* G3a 45-59 Mildly to moderately decreased G3b 30-44 Moderately to severely decreased G4 15-29 Severely decreased G5 <15 Kidney failure *Relative to young adult level. In the absence of evidence of kidney damage, neither GFR category G1 nor G2 fulfill the criteria for CKD. The CKD-EPI equation is validated in individuals 18 years of age and older. Currently the best equation for estimating glomerular filtration rate (GFR) from serum creatinine in children is the Bedside Garcia equation. It is less accurate in patients with extremes of muscle mass, restriction of dietary protein, ingestion of creatine, extra-renal metabolism of creatinine, or treatment with medications that affect renal tubular creatinine secretion. GFR/1.73 sq M predicted among blacks MDRD (S/P/Bld) [Vol rate/Area] 84.0 mL/min/{1.73_m2} >60 [facility] Work Phone: Glucose [Mass/Vol] 84 mg/dL 70 - 100 mg/dL [facility] Work Phone: Interpretation and review of laboratory results Abnormal [facility] Work Phone: Potassium [Moles/Vol] 3.2 mmol/L Low 3.5 - 5.1 mmol/L [facility] Work Phone: Sodium [Moles/Vol] 133 mmol/L Low 135 - 145 mmol/L [facility] Work Phone: Urea nitrogen [Mass/Vol] 17 mg/dL 7 - 20 mg/dL [facility] Work Phone: CBCon 02-11-2021 Erythrocyte distribution width (RBC) [Ratio] 13.8 % 11.5 - 14.5 % [facility] Work Phone: Hematocrit (Bld) [Volume fraction] 31.4 % Low 35.0 - 47.0 % [facility] Work Phone: Hemoglobin (Bld) [Mass/Vol] 10.4 g/dL Low 11.7 - 16.0 g/dL [facility] Work Phone: [phone] Interpretation and review of laboratory results Abnormal [facility] Work Phone: MCH (RBC) [Entitic mass] 29.1 pg 26.0 - 34.0 pg [facility] Work Phone: MCHC (RBC) [Mass/Vol] 33.0 % 32.0 - 36.0 % [facility] Work Phone: [phone] MCV (RBC) [Entitic vol] 88.2 fL 79.0 - 98.0 fL [facility] Work Phone: Platelet mean volume (Bld) [Entitic vol] 8.7 fL 7.4 - 10.4 fL [facility] Work Phone: Platelets (Bld) [#/Vol] 187 10*3/uL 140 - 440 10*3/uL [facility] Work Phone: RBC (Bld) [#/Vol] 3.56 10*6/uL Low 3.80 - 5.2 0 10*6/uL [facility] Work Phone: [phone] WBC (Bld) [#/Vol] 14.6 10*3/uL High 3.6 - 10.7 10*3/uL [facility] Work Phone: Test Performed by [facility], [address] [place] [address] [employer] Work Phone: CR Chest Portableon 02-12-20 21 CR Chest Portable Patient Name: DANII WOLFE Diagnostic Radiology ACCESSION EXAM DATE/TIME PROCEDURE ORDERING PROVIDER [id number] 02/11/2021 05:53 EDT CR Chest Portable [id number] -DMITRY BEGUM CPT code 33944 Reason For Exam (CR Chest Portable) Shortness of breath Report PORTABLE CHEST X-RAY CLINICAL INDICATION: Shortness of breath A portable frontal view of the chest was obtained. COMPARISON: 02/10/2021 FINDINGS: Heart size is at the upper limits of normal, similar to the prior study. Previously noted right jugular [place] Plata-Luis catheter has been removed. A right jugular sheath remains in place. Mediastinal drain and left-sided chest tube are unchanged. Mild left basilar atelectasis is similar to the prior study. No new areas of consolidation are seen. There is no large pleural effusion or pneumothorax. There are degenerative changes of the spine. IMPRESSION: La Plata-Luis catheter has been withdrawn. Right jugular sheath remains in place. Left basilar atelectasis and low lung volumes, similar to the prior study. Report Dictated on Final Dictated: 02/11/2021 5:23 am Dictating Physician: MD VELIZ JONATHAN R Signed Date and Time: 02/11/2021 5:24 am Signed by: MD VELIZ JONATHAN R Transcribed Date and Time: 02/11/2021 5:23 Normal [facility] Glucose,Bedsideon 02-11-2021 Glucose [Mass/Vol] 128 mg/dL High 70-100 [facility] Comment on above: Result Comment: Test performed by glucose meter. Results may be 10%-15% lower than serum/plasma values. (CLIA ID [id number]) Performed By: #### L RC #### [address] [address] #### TSGL #### [facility] Glucose [Mass/Vol] 188 mg/dL High 70-100 [facility] Comment on above: Result Comment: Test performed by glucose meter. Results may be 10%-15% lower than serum/plasma values. (CLIA ID [id number]) Performed By: #### B GLU #### [facility] [address] [place] [address] Glucose [Mass/Vol] 144 mg/dL High 70-100 [facility] Comment on above: Result Comment: Test performed by glucose meter. Results may be 10%-15% lower than serum/plasma values. (CLIA ID [id number]) Performed By: #### B GLU ####[facility] [address] [place] [address] Glucose [Mass/Vol] 225 mg/dL High 70-100 [facility] Comment on above: Result Comment: Test performed by glucose meter. Results may be 10%-15% lower than serum/plasma values. (CLIA ID [id number]) Performed By: #### B GLU #### [facility] [address] [place] [address] Glucose [Mass/Vol] 190 mg/dL High 70-100 [facility] Comment on above: Result Comment: Test performed by glucose meter. Results may be 10%-15% lower than serum/plasma values. (CLIA ID [id number]) Performed By: #### B GLU #### [facility] [address] [place] [address] Glucose [Mass/Vol] 113 mg/dL High 70-100 [facility] Comment on above: Result Comment: Test performed by glucose meter. Results may be 10%-15% lower than serum/plasma values. (CLIA ID [id number]) Performed By: #### B GLU ####[facility] [address] [place] [address] Glucose [Mass/Vol] 106 mg/dL High 70-100 [facility] Comment on above: Result Comment: Test performed by glucose meter. Results may be 10%-15% lower than serum/plasma values. (CLIA ID [id number]) Performed By: #### B GLU ####[facility] [address] [place] [address] Glucose [Mass/Vol] 99 mg/dL Normal 70-100 [facility] Comment on above: Result Comment: Test performed by glucose meter. Results may be 10%-15% lower than serum/plasma values. (CLIA ID [id number]) Performed By: #### B GLU #### [facility] [address] [facility] [place] [address] Glucose [Mass/Vol] 106 mg/dL High 70-100 [facility] Comment on above: Result Comment: Test performed by glucose meter. Results may be 10%-15% lower than serum/plasma values. (CLIA ID [id number]) Performed By: #### B GLU #### [employer] [facility] [address] [place] [address] Glucose [Mass/Vol] 85 mg/dL Normal 70-100 [facility] Comment on above: Result Comment: Test performed by glucose meter. Results may be 10%-15% lower than serum/plasma values. (CLIA ID [id number]) Performed By: #### B GLU #### [employer] [facility] [address] [place] [address] Glucose [Mass/Vol] 86 mg/dL Normal 70-100 [facility] Comment on above: Result Comment: Test performed by glucose meter. Results may be 10%-15% lower than serum/plasma values. (CLIA ID [id number]) Performed By: #### B GLU #### [employer] [facility] [address] [place] [address] Glucose [Mass/Vol] 98 mg/dL Normal 70-100 [facility] Comment on above: Result Comment: Test performed by glucose meter. Results may be 10%-15% lower than serum/plasma values. (CLIA ID [id number]) Performed By: #### B GLU #### [facility] [address] [place], [place] Hematologyon 02-11-2021 ABO and Rh group Nom (Bld) 6[address] [facility] Work Phone: Hemogramon 02-11-2021 Erythrocyte distribution width (RBC) [Ratio] 13.8 % Normal 11.5-14.5 [facility] Comment on above: Performed By: #### H TERRIE PEPPER3, MG3 ####[facility] [address] [place], [place] Hematocrit (Bld) [Volume fraction] 31.4 % Low 35.0-47.0 [facility] Comment on above: Performed By: #### H TERRIE PEPPER3, MG3 ####[facility] [address] [place], [place] Hemoglobin (Bld) [Mass/Vol] 10.4 g/dL Low 11.7-16.0 [facility] Comment on above: Performed By: #### H TERRIE PEPPER3, MG3 ####[facility] [address] [place], [place] MCH (RBC) [Entitic mass] 29.1 pg Normal 26.0-34.0 [facility] Comment on above: Performed By: #### H EMOMarisol BMP3, MG3 ####[facility] [address] [place], [place] MCHC 33.0 % Normal 32.0-36.0 [facility] Comment on above: Performed By: #### H SHANTELLE BMP3, MG3 ####[facility] [address] MCV (RBC) [Entitic vol] 88.2 fL Normal 79.0-98.0 [facility] Comment on above: Performed By: #### H SHANTELLE BMP3, MG3 ####[facility] [address], [place] Platelet mean volume (Bld) [Entitic vol] 8.7 fL Normal 7.4-10.4 [facility] Comment on above: Performed By: #### H SHANTELLE, BMP3, MG3 ####[address] [place] [address] Platelets (Bld) [#/Vol] 187 10*3/uL Normal 140-440 [facility] Comment on above: Performed By: #### H EMOG, BMP3, MG3 ####[address] [place], [place] RBC (Bld) [#/Vol] 3.56 10*6/uL Low 3.80-5.20 [facility] Comment on above: Performed By: #### H EMOMarisol, BMP3, MG3 ####[address] WBC (Bld) [#/Vol] 14.6 10*3/uL High 3.6-10.7 [facility] Comment on above: Performed By: #### H SHANTELLE, BMP3, MG3 ####[facility] [address] [place], [place] Leukodepleted Red Cellson Leukodepleted Red Cells Leukodepleted Red Cells: [id number] released 02/11/21 07:20 JMV Unit Blood Type: A Unit Blood Rh: POS Blood Product Code: AS1 Unit Number: [id number] Unit Status: released Barcoded Unit Number: =[id number] Barcoded Product Code: = Barcoded ABO/Rh: =%6200 Unit Expiration: [id number] Leukodepleted Red Cells: [id number] released 02/11/21 07:20 JMV Unit Blood Type: A Unit Blood Rh: POS Blood Product Code: AS1 Unit Number: [id number] Unit Status: released Barcoded Unit Number: =[id number] Barcoded Product Code: = Barcoded ABO/Rh: =%6200 Unit Expiration: Normal [facility] Comment on above: Performed By: #### B GLU #### [facility] [address] [place] [address] Magnesiumon 02-11-2021 Magnesium [Mass/Vol] 2.3 mg/dL Normal 1.6-2.3 [facility] Comment on above: Performed By: #### L RC #### [address] [address] #### TSGL #### [facility] Magnesium [Mass/Vol] 2.3 mg/dL 1.6 - 2 .3 mg/dL [facility] Work Phone: [phone] Metabolic Panelon 02-11-2021 Sodium [Moles/Vol] [id number] [facility] Work Phone: [phone] Sodium [Moles/Vol] released [facility] Work Phone: [phone] Sodium [Moles/Vol] [id number] mmol/L [facility] Work Phone: [phone] Otheron 02-11-2021 Test Performed by [facility], [address] [place] [address] [facility] Work Phone: [phone] POCT Glucoseon 02-11-2021 Glucose [Mass/Vol] 128 mg/dL High 70 - 100 mg/dL [facility] Work Phone: [phone] Comment on above: Test performed by gl ucose meter. Results may be 10%-15% lower than serum/plasma values. (CLIA ID [id number]) Interpretation and review of laboratory results Abnormal [facility] Work Phone: [phone] Test Performed by [facility], [address] [place] [address] [facility] Work Phone: [phone] Glucose [Mass/Vol] 188 mg/dL High 70 - 100 mg/dL [facility] Work Phone: [phone] Comment on above: Test performed by gl ucose meter. Results may be 10%-15% lower than serum/plasma values. (CLIA ID [id number]) Interpretation and review of laboratory results Abnormal [facility] Work Phone: Test Performed by [employer], [address] [place] [address], [place] [address] [facility] Work Phone: [phone] Glucose [Mass/Vol] 144 mg/dL High 70 - 100 mg/dL [facility] Work Phone: [phone] Comment on above: Test performed by gl ucose meter. Results may be 10%-15% lower than serum/plasma values. (CLIA ID [id number]) Interpretation and review of laboratory results Abnormal [facility] Work Phone: [phone] Test Performed by [employer], [facility] [place] [address] [facility] Work Phone: [phone] Glucose [Mass/Vol] 225 mg/dL High 70 - 100 mg/dL [facility] Work Phone: [phone] Comment on above: Test performed by gl ucose meter. Results may be 10%-15% lower than serum/plasma values. (CLIA ID [id number]) Interpretation and review of laboratory results Abnormal [facility] Work Phone: [phone] Test Performed by [employer], [facility] [place] [address] [facility] Work Phone: [phone] Glucose [Mass/Vol] 190 mg/dL High 70 - 100 mg/dL [facility] Work Phone: [phone] Comment on above: Test performed by gl ucose meter. Results may be 10%-15% lower than serum/plasma values. (CLIA ID [id number]) Interpretation and review of laboratory results Abnormal [facility] Work Phone: [phone] Test Performed by [employer], [facility] [place] [address] [facility] Work Phone: [phone] Glucose [Mass/Vol] 113 mg/dL High 70 - 100 mg/dL [facility] Work Phone: [phone] Comment on above: Test performed by gl ucose meter. Results may be 10%-15% lower than serum/plasma values. (CLIA ID [id number]) Interpretation and review of laboratory results Abnormal [facility] Work Phone: [phone] Test Performed by [employer], [place] [address] [facility] Work Phone: [phone] Glucose [Mass/Vol] 106 mg/dL High 70 - 100 mg/dL [facility] Work Phone: [phone] Comment on above: Test performed by gl ucose meter. Results may be 10%-15% lower than serum/plasma values. (CLIA ID [id number]) Interpretation and review of laboratory results Abnormal [facility] Work Phone: [phone] Test Performed by [employer], [facility] [place] [address] [facility] Work Phone: [phone] Glucose [Mass/Vol] 99 mg/dL 70 - 100 mg/dL [facility] Work Phone: [phone] Comment on above: Test performed by gl ucose meter. Results may be 10%-15% lower than serum/plasma values. (CLIA ID [id number]) Test Performed by [employer], [facility] [place] [address] [facility] Work Phone: [phone] Glucose [Mass/Vol] 106 mg/dL High 70 - 100 mg/dL [facility] Work Phone: [phone] Comment on above: Test performed by gl ucose meter. Results may be 10%-15% lower than serum/plasma values. (CLIA ID [id number]) Interpretation and review of laboratory results Abnormal [facility] Work Phone: [phone] Test Performed by [employer], [facility] [employer] [place] [address] [facility] Work Phone: [phone] Glucose [Mass/Vol] 85 mg/dL 70 - 100 mg/dL [facility] Work Phone: [phone] Comment on above: Test performed by gl ucose meter. Results may be 10%-15% lower than serum/plasma values. (CLIA ID [id number]) Test Performed by [employer], [facility] [place] [place] [address] [facility] Work Phone: [phone] PREPARE RBC (CROSSMATCH), 2 Unitson 02-11-2021 Blood product unit ID (Dose) [#] [id number] [facility] Work Phone: [phone] Blood product unit ID (Dose) [#] [id number] [facility] Work Phone: [facility] Work Phone: Potassiumon 02-11-2021 Potassium [Moles/Vol] 4.4 mmol/L Normal 3.5-5.1 [facility] Comment on above: Performed By: #### B GLU #### [address] [address] Potassium [Moles/Vol] 4.4 mmol/L 3.5 - 5.1 mmol/L [facility] Work Phone: Test Performed by [facility], [address] [place] [address] [facility] Work Phone: XR CHEST PORTABLEon 02-12-20 21 [place], [facility] Incoming Radiology Results From [employer] - 02/11/2021 5:53 AM EDT Patient Name: DANII WOLFE Diagnostic Radiology ACCESSION EXAM DATE/TIME PROCEDURE ORDERING PROVIDER [id number] 02/11/2021 05:53 EDT CR Chest Portable [id number] -MDITRY BGEUM CPT code 63721 Reason For Exam (CR Chest Portable) Shortness of breath Report PORTABLE CHEST X-RAY CLINICAL INDICATION: Shortness of breath A portable frontal view of the chest was obtained. COMPARISON: 02/10/2021 FINDINGS: Heart size is at the upper limits of normal, similar to the prior study. Previously noted right jugular La Plata-Luis catheter has been removed. A right jugular sheath remains in place. Mediastinal drain and left-sided chest tube are unchanged. Mild left basilar atelectasis is similar to the prior study. No new areas of consolidation are seen. There is no large pleural effusion or pneumothorax. There are degenerative changes of the spine. IMPRESSION: La Plata-Luis catheter has been withdrawn. Right jugular sheath remains in place. Left basilar atelectasis and low lung volumes, similar to the prior study. Report Dictated on Workstation: [id number] --- Final --- Dictated: 02/11/2021 5:23 am Dictating Physician: MD VELIZ JONATHAN R Signed Date and Time: 02/11/2021 5:24 am Signed by: MD VELIZ JONATHAN R Transcribed Date and Time: 02/11/2021 5:23 [facility] Work Phone: [id number] Radiology ACCESSION EXAM DATE/TIME PROCEDURE ORDERING PROVIDER [id number] 02/11/2021 05:53 EDT CR Chest Portable [id number] -DMITRY BEGUM CPT code 06929 Reason For Exam (CR Chest Portable) Shortness of breath Report PORTABLE CHEST X-RAY CLINICAL INDICATION: Shortness of breath A portable frontal view of the chest was obtained. COMPARISON: 02/10/2021 FINDINGS: Heart size is at the upper limits of normal, similar to the prior study. Previously noted right jugular La Plata-Luis catheter has been removed. A right jugular sheath remains in place. Mediastinal drain and left-sided chest tube are unchanged. Mild left basilar atelectasis is similar to the prior study. No new areas of consolidation are seen. There is no large pleural effusion or pneumothorax. There are degenerative changes of the spine. IMPRESSION: La Plata-Luis catheter has been withdrawn. Right jugular sheath remains in place. Left basilar atelectasis and low lung volumes, similar to the prior study. Report Dictated on --- Final --- Dictated: 02/11/2021 5:23 am Dictating Physician: MD VELIZ JONATHAN R Signed Date and Time: 02/11/2021 5:24 am Signed by: MD VELIZ JONATHAN R Transcribed Date and Time: 02/11/2021 5:23 [facility] Work Phone: Basic Metabolic Panelon 01-24 Calcium [Mass/Vol] 8.3 mg/dL Low 8.4-10.4 [facility] Comment on above: Performed By: #### B GLU #### [facility] [address] [address] Glucose [Mass/Vol] 160 mg/dL High 70-100 [facility] Comment on above: Performed By: #### B GLU #### [facility] [address] [place] [address] Anion gap [Moles/Vol] 9 mmol/L Normal 3-13 [facility] Comment on above: Performed By: #### B GLU #### [facility] [address] [place] [address] CO2 [Moles/Vol] 24 mmol/L Normal 22-30 [facility] Comment on above: Performed By: #### B GLU #### [facility] [address] [place] [address] Creatinine [Mass/Vol] 0.79 mg/dL Normal 0.52-1.25 [facility] Comment on above: Performed By: #### B GLU #### [facility] [address] [place] [address] GFR/1.73 sq M.predicted among blacks MDRD (S/P/Bld) [Vol rate/Area] 85.2 mL/min/{1.73_m2} Normal >60 [facility] Comment on above: Performed By: #### B GLU #### [facility] [address] [place] [address] GFR/1.73 sq M.predicted among non-blacks MDRD (S/P/Bld) [Vol rate/Area] 73.6 mL/min/{1.73_m2} Normal >60 [facility] Comment on above: Result Comment: KDIG O guidelines provide the following GFR categories: Stage GFR(ml/min/1.73 m2) Terms G1 >=90 Normal or high G2 60-89 Mildly decreased* G3a 45-59 Mildly to moderately decreased G3b 30-44 Moderately to severely decreased G4 15-29 Severely decreased G5 <15 Kidney failure *Relative to young adult level. In the absence of evidence of kidney damage, neither GFR category G1 nor G2 fulfill the criteria for CKD. The CKD-EPI equation is validated in individuals 18 years of age and older. Currently the best equation for estimating glomerular filtration rate (GFR) from serum creatinine in children is the Bedside Garcia equation. It is less accurate in patients with extremes of muscle mass, restriction of dietary protein, ingestion of creatine, extra-renal metabolism of creatinine, or treatment with medications that affect renal tubular creatinine secretion. Performed By: #### B GLU #### [facility] [address] [place] [address] Urea nitrogen [Mass/Vol] 18 mg/dL Normal 7-20 [facility] Comment on above: Performed By: #### B GLU #### [facility] [address] [place] [address] Chloride [Moles/Vol] 109 mmol/L High 98-107 [facility] Comment on above: Performed By: #### B GLU #### [facility] [address] [place] [address] Potassium [Moles/Vol] 3.9 mmol/L Normal 3.5-5.1 [facility] Comment on above: Performed By: #### B GLU #### [facility] [address] [place] [address] Sodium [Moles/Vol] 143 mmol/L Normal 135-145 [facility] Comment on above: Performed By: #### B GLU #### [facility] [address] [place] [address] Anion gap [Moles/Vol] 9 mmol/L 3 - 13 mmol/L [facility] Work Phone: Calcium [Mass/Vol] 8.3 mg/dL Low 8.4 - 10. 4 mg/dL [facility] Work Phone: Chloride [Moles/Vol] 109 mmol/L High 98 - 10 7 mmol/L [facility] Work Phone: CO2 [Moles/Vol] 24 mmol/L 22 - 30 mmol/L [facility] Work Phone: Creatinine [Mass/Vol] 0.79 mg/dL 0.52 - 1.25 mg/dL [facility] Work Phone: EGFR IF NonAfrican Yemeni 73.6 mL/min >60 [facility] Work Phone: Comment on above: KDIGO guidelines pro vide the following GFR categories: Stage GFR(ml/min/1.73 m2) Terms G1 >=90 Normal or high G2 60-89 Mildly decreased* G3a 45-59 Mildly to moderately decreased G3b 30-44 Moderately to severely decreased G4 15-29 Severely decreased G5 <15 Kidney failure *Relative to young adult level. In the absence of evidence of kidney damage, neither GFR category G1 nor G2 fulfill the criteria for CKD. The CKD-EPI equation is validated in individuals 18 years of age and older. Currently the best equation for estimating glomerular filtration rate (GFR) from serum creatinine in children is the Bedside Garcia equation. It is less accurate in patients with extremes of muscle mass, restriction of dietary protein, ingestion of creatine, extra-renal metabolism of creatinine, or treatment with medications that affect renal tubular creatinine secretion. GFR/1.73 sq M predicted among blacks MDRD (S/P/Bld) [Vol rate/Area] 85.2 mL/min/{1.73_m2} >60 [facility] Work Phone: [phone] Glucose [Mass/Vol] 160 mg/dL High 70 - 100 mg/dL [facility] TV Phone: [phone] Potassium [Moles/Vol] 3.9 mmol/L 3.5 - 5.1 mmol/L [facility] Work Phone: [phone] Sodium [Moles/Vol] 143 mmol/L 135 - 145 mmol/L [facility] Work Phone: [phone] Urea nitrogen [Mass/Vol] 18 mg/dL 7 - 20 mg/dL [facility] Work Phone: [phone] CBCon 02-10-2021 Erythrocyte distribution width (RBC) [Ratio] 13.4 % 11.5 - 14.5 % [facility] Work Phone: Hematocrit (Bld) [Volume fraction] 30.8 % Low 35.0 - 47.0 % [facility] Work Phone: Hemoglobin (Bld) [Mass/Vol] 10.4 g/dL Low 11.7 - 16.0 g/dL [facility] Work Phone: Interpretation and review of laboratory results Abnormal [facility] Work Phone: MCH (RBC) [Entitic mass] 29.5 pg 26.0 - 34.0 pg [facility] Work Phone: MCHC (RBC) [Mass/Vol] 33.8 % 32.0 - 36.0 % [facility] Work Phone: MCV (RBC) [Entitic vol] 87.3 fL 79.0 - 98.0 fL [facility] Work Phone: Platelet mean volume (Bld) [Entitic vol] 8.3 fL 7.4 - 10.4 fL [employer] Work Phone: [phone] Platelets (Bld) [#/Vol] 204 10*3/uL 140 - 440 10*3/uL [facility] Work Phone: [phone] RBC (Bld) [#/Vol] 3.52 10*6/uL Low 3.80 - 5.2 0 10*6/uL [facility] Work Phone: [phone] WBC (Bld) [#/Vol] 10.5 10*3/uL 3.6 - 10.7 10*3/uL [facility] Work Phone: Test Performed by [facility], [address] [place] [address] [facility] Work Phone: CR Chest Portableon 02-11-20 21 CR Chest Portable Patient Name: DANII WOLFE Diagnostic Radiology ACCESSION EXAM DATE/TIME PROCEDURE ORDERING PROVIDER [id number] 02/10/2021 05:54 EDT CR Chest Portable [id number] -DMITRY BEGUM CPT code 00963 Reason For Exam (CR Chest Portable) Shortness of breath Report PORTABLE CHEST X-RAY CLINICAL INDICATION: Shortness of breath A portable frontal view of the chest was obtained. COMPARISON: 02/09/2021 FINDINGS: Heart size is at the upper limits of normal. Previously noted endotracheal tube and feeding tube have been removed. Right jugular La Plata-Luis catheter, mediastinal drain, and left basilar chest tube are unchanged. Low lung volumes are present. There is atelectasis at the left lung base. There is no pleural effusion or evidence of pneumothorax. There are degenerative changes of the spine. IMPRESSION: Endotracheal tube and feeding tube have been withdrawn. Additional lines and tubes otherwise unchanged. Low lung volumes. Left basilar atelectasis. Report Dictated on Workstation: [id number] Final Dictated: 02/10/2021 5:15 am Dictating Physician: MD VELIZ JONATHAN R Signed Date and Time: 02/10/2021 5:16 am Signed by: MD VELIZ JONATHAN R Transcribed Date and Time: 02/10/2021 5:15 Normal [facility] EKG 12 leadon 02-10-2021 [place], [facility] Incoming Cardiology Results From [facility] - 02/10/2021 5:11 PM EDT [facility] Test Date: 2021-02-10 Pat Name: Danii Wolfe Department: [facility] Room: [facility] Gender: F 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 : 1945 Requested By: DMITRY BEGUM Order Number: [id number] Reading : Garcia Barajas Measurements Intervals Griffin Rate: 84 P: -2 WV: 164 QRS: 11 QRSD: 97 T: 3 QT: 417 QTc: 493 Interpretive Statements Sinus rhythm Borderline criteria for anterolateral infarct, acute Compared to ECG 02/09/2021 18:00:35 Myocardial infarct finding now present Early repolarization no longer present Repeat EKG to assess for evolutionary changes Electronically Signed On 02-10-2021 17:10:36 EDT by Garcia Barajas Ning Work Phone: [facility] Test Date: 2021-02-10 Pat Name: Danii Wolfe Department: [facility] Room: [facility] Gender: F 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 : 1945 Requested By: DMITRY BEGUM Order Number: [id number] Reading : Garcia Barajas Measurements Intervals Griffin Rate: 84 P: -2 WV: 164 QRS: 11 QRSD: 97 T: 3 QT: 417 QTc: 493 Interpretive Statements Sinus rhythm Borderline criteria for anterolateral infarct, acute Compared to ECG 02/09/2021 18:00:35 Myocardial infarct finding now present Early repolarization no longer present Repeat EKG to assess for evolutionary changes Electronically Signed On 02-10-2021 17:10:36 EDT by Garcia Barajas [employer] Work Phone: [facility], [facility] Incoming Cardiology Results From [employer] - 02/10/2021 8:34 AM EDT [facility] Test Date: 2021-02-09 Pat Name: Danii Wolfe Department: 1[facility] Room: [facility] Gender: F Computing Machine Operator: : 1945 Requested By: DMITRY BEGUM Order Number: [id number] Reading MD: Garcia Barajas Measurements Intervals Griffin Rate: 79 P: -23 WV: 108 QRS: 62 QRSD: 114 T: 19 QT: 536 QTc: 615 Interpretive Statements Sinus rhythm Short WV interval LVH with secondary repolarization abnormality Prolonged QT interval Electronically Signed On 02-10-2021 8:33:23 EDT by Garcia [employer] Work Phone: [facility] Test Date: 2021-02-09 Pat Name: Danii Wolfe Department: [facility] Room: [facility] Gender: F Computing Machine Operator: : 1945 Requested By: DMITRY BEGUM Order Number: [id number] Reading MD: Garcia Barajas Measurements Intervals Griffin Rate: 79 P: -23 WV: 108 QRS: 62 QRSD: 114 T: 19 QT: 536 QTc: 615 Interpretive Statements Sinus rhythm Short WV interval LVH with secondary repolarization abnormality Prolonged QT interval Electronically Signed On 02-10-2021 8:33:23 EDT by Garcia Barajas [employer] Work Phone: Echocardiogram transesophage erickson 02-10-2021 [place], [facility] Incoming Cardiology Results From [facility] - 02/10/2021 5:52 AM EDT TRANSESOPHAGEAL ECHOCARDIOGRAM PATIENT: Danii Wolfe STUDY DATE: 02/09/2021 : 1945 AGE: 75 HT/WT: 165.1 cm (65 96.4 kg (212 in) lb) GENDER: F BP: 149 / 76 LOCATION: [facility] PATIENT Inpatient main STATUS: *ORDERING PHYSICIAN: * Dmitry Begum *READING PHYSICIAN: * Davis Nava, *MECHANICAL MANUFACTURING TECHNICIAN: * Lois Winston RDCS, AE MD -- INDICATIONS: CABG. -- CONCLUSIONS SUMMARY: 1. Left ventricle: Systolic function is normal by visual assessment. The estimated ejection fraction is 60%. There are no regional wall motion abnormalities. 2. Right ventricle: Systolic function is normal. La Plata catherter seen in RA and RV 3. Left atrium: The atrium is normal in size. There is no evidence of a thrombus in the atrial cavity or appendage. 4. Mitral valve: Structurally normal valve. There is mild, 1+ regurgitation. 5. Aortic valve: Structurally normal valve. Trileaflet. 6. Tricuspid valve: Structurally normal valve. 7. Aorta: There is no atheroma. 8. Pericardium, extracardiac: There is a moderate-sized left pleural effusion. RECOMMENDATIONS: Findings discussed with CT surgery in OR. -- STUDY DATA: Transesophageal echocardiography was performed. Procedure: Initial setup. Surface ECG leads, blood pressure measurements, and pulse oximetric signals were monitored. A transesophageal probe was inserted by the ed teacher under direct supervision of the attending cardiologistwithout difficulty. Image quality was fair. Complete 2D, complete spectral Doppler, and color flow Doppler images were acquired and archived for permanent storage and are available for subsequent review. Study status: Routine. Patient status: Inpatient. Location: Procedure room. Consent: The risks, benefits, and alternatives to the procedure were explained to the patient and informed consent was obtained. Administered medications: General anesthesia given with Isoflurane. ECG RHYTHM: NSR -- FINDINGS LEFT VENTRICLE: The cavity size is normal. Systolic function is normal by visual assessment. The estimated ejection fraction is 60%. There are no regional wall motion abnormalities. RIGHT VENTRICLE: The cavity size is normal. Systolic function is normal. La Plata catherter seen in RA and RV VENTRICULAR SEPTUM: There is no evidence of a ventricular septal defect. There is no evidence of a ventricular septal defect. LEFT ATRIUM: The atrium is normal in size. There is no evidence of a thrombus in the atrial cavity or appendage. No spontaneous echo contrast is observed. The appendage is of normal size. Emptying velocity is normal. RIGHT ATRIUM: The atrium is normal in size. ATRIAL SEPTUM: No evidence of patent foramen ovale or atrial septal defect. There is no evidence of right to left shunting with injection of agitated saline contrast. MITRAL VALVE: Structurally normal valve. Leaflet separation is normal. Doppler: There is mild, 1+ regurgitation. AORTIC VALVE: Structurally normal valve. Trileaflet. Cusp separation is normal. Doppler: There is no stenosis. There is no regurgitation. TRICUSPID VALVE: Structurally normal valve. Leaflet separation is normal. Doppler: There is trivial, less than 1+ regurgitation. PULMONIC VALVE: No thickening. Cusp separation is normal. Doppler: There is trivial, less than 1+ regurgitation. AORTA: There is no atheroma. There is no evidence for aneurysm. There is no evidence for dissection. Aortic root: The aortic root is not dilated. PULMONARY ARTERY: The main pulmonary artery is normal in size. PERICARDIUM: There is no pericardial effusion. There is a moderate-sized left pleural effusion. SYSTEMIC VEINS: Superior vena cava: The vessel is normal in size. Electronically signed by Davis Nava MD 02/10/2021 05:51 Prior Signatures: [facility] Work Phone: TRANSESOPHAGEAL ECHOCARDIOGRAM PATIENT: Danii Wolfe STUDY DATE: 02/09/2021 : 1945 AGE: 75 HT/WT: 165.1 cm (65 96.4 kg (212 in) lb) GENDER: F BP: 149 / 76 LOCATION: [facility] PATIENT Inpatient main STATUS: *ORDERING PHYSICIAN: * Dmitry Begum *READING PHYSICIAN: * Davis Nava, *MECHANICAL MANUFACTURING TECHNICIAN: * Lois Winston RDCS, AE MD -- INDICATIONS: CABG. -- CONCLUSIONS SUMMARY: 1. Left ventricle: Systolic function is normal by visual assessment. The estimated ejection fraction is 60%. There are no regional wall motion abnormalities. 2. Right ventricle: Systolic function is normal. La Plata catherter seen in RA and RV 3. Left atrium: The atrium is normal in size. There is no evidence of a thrombus in the atrial cavity or appendage. 4. Mitral valve: Structurally normal valve. There is mild, 1+ regurgitation. 5. Aortic valve: Structurally normal valve. Trileaflet. 6. Tricuspid valve: Structurally normal valve. 7. Aorta: There is no atheroma. 8. Pericardium, extracardiac: There is a moderate-sized left pleural effusion. RECOMMENDATIONS: Findings discussed with CT surgery in OR. -- STUDY DATA: Transesophageal echocardiography was performed. Procedure: Initial setup. Surface ECG leads, blood pressure measurements, and pulse oximetric signals were monitored. A transesophageal probe was inserted by the ed teacher under direct supervision of the attending cardiologistwithout difficulty. Image quality was fair. Complete 2D, complete spectral Doppler, and color flow Doppler images were acquired and archived for permanent storage and are available for subsequent review. Study status: Routine. Patient status: Inpatient. Location: Procedure room. Consent: The risks, benefits, and alternatives to the procedure were explained to the patient and informed consent was obtained. Administered medications: General anesthesia given with Isoflurane. ECG RHYTHM: NSR -- FINDINGS LEFT VENTRICLE: The cavity size is normal. Systolic function is normal by visual assessment. The estimated ejection fraction is 60%. There are no regional wall motion abnormalities. RIGHT VENTRICLE: The cavity size is normal. Systolic function is normal. [place] catherter seen in RA and RV VENTRICULAR SEPTUM: There is no evidence of a ventricular septal defect. There is no evidence of a ventricular septal defect. LEFT ATRIUM: The atrium is normal in size. There is no evidence of a thrombus in the atrial cavity or appendage. No spontaneous echo contrast is observed. The appendage is of normal size. Emptying velocity is normal. RIGHT ATRIUM: The atrium is normal in size. ATRIAL SEPTUM: No evidence of patent foramen ovale or atrial septal defect. There is no evidence of right to left shunting with injection of agitated saline contrast. MITRAL VALVE: Structurally normal valve. Leaflet separation is normal. Doppler: There is mild, 1+ regurgitation. AORTIC VALVE: Structurally normal valve. Trileaflet. Cusp separation is normal. Doppler: There is no stenosis. There is no regurgitation. TRICUSPID VALVE: Structurally normal valve. Leaflet separation is normal. Doppler: There is trivial, less than 1+ regurgitation. PULMONIC VALVE: No thickening. Cusp separation is normal. Doppler: There is trivial, less than 1+ regurgitation. AORTA: There is no atheroma. There is no evidence for aneurysm. There is no evidence for dissection. Aortic root: The aortic root is not dilated. PULMONARY ARTERY: The main pulmonary artery is normal in size. PERICARDIUM: There is no pericardial effusion. There is a moderate-sized left pleural effusion. SYSTEMIC VEINS: Superior vena cava: The vessel is normal in size. Electronically signed by Davis Nava MD 02/10/2021 05:51 Prior Signatures: Ning Work Phone: Glucose,Bedsideon 02-10-2021 Glucose [Mass/Vol] 92 mg/dL Normal 70-100 [facility] Comment on above: Result Comment: Test performed by glucose meter. Results may be 10%-15% lower than serum/plasma values. (CLIA ID [id number]) Performed By: #### B GLU #### [facility] [address] [place] [address] Glucose [Mass/Vol] 98 mg/dL Normal 70-100 [facility] Comment on above: Result Comment: Test performed by glucose meter. Results may be 10%-15% lower than serum/plasma values. (CLIA ID [id number]) Performed By: #### B GLU #### [facility] [address] [place] [address] Glucose [Mass/Vol] 118 mg/dL High 70-100 [facility] Comment on above: Result Comment: Test performed by glucose meter. Results may be 10%-15% lower than serum/plasma values. (CLIA ID [id number]) Performed By: #### B GLU #### [facility] [address] [place] [address] Glucose [Mass/Vol] 99 mg/dL Normal 70-100 [facility] Comment on above: Result Comment: Test performed by glucose meter. Results may be 10%-15% lower than serum/plasma values. (CLIA ID [id number]) Performed By: #### B GLU #### [facility] [address] [place] [address] Glucose [Mass/Vol] 101 mg/dL High 70-100 [facility] Comment on above: Result Comment: Test performed by glucose meter. Results may be 10%-15% lower than serum/plasma values. (CLIA ID [id number]) Performed By: #### B GLU #### [employer] [address] [place] [address] Glucose [Mass/Vol] 109 mg/dL High 70-100 [facility] Comment on above: Result Comment: Test performed by glucose meter. Results may be 10%-15% lower than serum/plasma values. (CLIA ID [id number]) Performed By: #### B GLU #### [facility] [address] [facility] [place] [address] Glucose [Mass/Vol] 132 mg/dL High 70-100 [facility] Comment on above: Result Comment: Test performed by glucose meter. Results may be 10%-15% lower than serum/plasma values. (CLIA ID [id number]) Performed By: #### B GLU #### [facility] [address] [facility] [place] [address] Glucose [Mass/Vol] 130 mg/dL High 70-100 [facility] Comment on above: Result Comment: Test performed by glucose meter. Results may be 10%-15% lower than serum/plasma values. (CLIA ID [id number]) Performed By: #### B GLU #### [facility] [address] [facility] [place] [address] Glucose [Mass/Vol] 85 mg/dL Normal 70-100 [facility] Comment on above: Result Comment: Test performed by glucose meter. Results may be 10%-15% lower than serum/plasma values. (CLIA ID [id number]) Performed By: #### B GLU #### [facility] [address] [facility] [place] [address] Glucose [Mass/Vol] 89 mg/dL Normal 70-100 [facility] Comment on above: Result Comment: Test performed by glucose meter. Results may be 10%-15% lower than serum/plasma values. (CLIA ID [id number]) Performed By: #### B GLU #### [facility] [address] [facility] [place] [address] Glucose [Mass/Vol] 96 mg/dL Normal 70-100 [facility] Comment on above: Result Comment: Test performed by glucose meter. Results may be 10%-15% lower than serum/plasma values. (CLIA ID [id number]) Performed By: #### L RC #### [address] [address] #### TSGL #### [facility] Glucose [Mass/Vol] 102 mg/dL High 70-100 [facility] Comment on above: Result Comment: Test performed by glucose meter. Results may be 10%-15% lower than serum/plasma values. (CLIA ID [id number]) Performed By: #### L RC #### [address] [address] #### TSGL #### [facility] Glucose [Mass/Vol] 108 mg/dL High 70-100 [facility] Comment on above: Result Comment: Test performed by glucose meter. Results may be 10%-15% lower than serum/plasma values. (CLIA ID [id number]) Performed By: #### B GLU #### [facility] [address] [place] [address] Glucose [Mass/Vol] 141 mg/dL High 70-100 [facility] Comment on above: Result Comment: Test performed by glucose meter. Results may be 10%-15% lower than serum/plasma values. (CLIA ID [id number]) Performed By: #### L RC #### [address] [address] #### TSGL #### [facility] Glucose [Mass/Vol] 141 mg/dL High 70-100 [facility] Comment on above: Result Comment: Test performed by glucose meter. Results may be 10%-15% lower than serum/plasma values. (CLIA ID [id number]) Performed By: #### B GLU #### [facility] [address] [place] [address] Glucose [Mass/Vol] 128 mg/dL High 70-100 [facility] Work Phone: Comment on above: Test performed by gl ucose meter. Results may be 10%-15% lower than serum/plasma values. (CLIA ID [id number]) Result Comment: Test performed by glucose meter. Results may be 10%-15% lower than serum/plasma values. (CLIA ID [id number]) Performed By: #### L RC #### [address] [address] #### TSGL #### [facility] Glucose [Mass/Vol] 148 mg/dL High 70-100 [facility] Comment on above: Result Comment: Test performed by glucose meter. Results may be 10%-15% lower than serum/plasma values. (CLIA ID [id number]) Performed By: #### B GLU #### [address] [address] Glucose [Mass/Vol] 131 mg/dL High 70-100 [facility] Comment on above: Result Comment: Test performed by glucose meter. Results may be 10%-15% lower than serum/plasma values. (CLIA ID [id number]) Performed By: #### B GLU #### [address] [address] Glucose [Mass/Vol] 151 mg/dL High 70-100 [facility] Comment on above: Result Comment: Test performed by glucose meter. Results may be 10%-15% lower than serum/plasma values. (CLIA ID [id number]) Performed By: #### B GLU #### [address] [address] Glucose [Mass/Vol] 170 mg/dL High 70-100 [facility] Comment on above: Result Comment: Test performed by glucose meter. Results may be 10%-15% lower than serum/plasma values. (CLIA ID [id number]) Performed By: #### B GLU #### [address] [address] Glucose [Mass/Vol] 112 mg/dL High 70-100 [facility] Comment on above: Result Comment: Test performed by glucose meter. Results may be 10%-15% lower than serum/plasma values. (CLIA ID [id number]) Performed By: #### B GLU #### [address] Glucose [Mass/Vol] 192 mg/dL High 70-100 [facility] Comment on above: Result Comment: Test performed by glucose meter. Results may be 10%-15% lower than serum/plasma values. (CLIA ID [id number]) Performed By: #### B GLU #### [facility] [address], [place] Glucose [Mass/Vol] 172 mg/dL High 70-100 [facility] Comment on above: Result Comment: Test performed by glucose meter. Results may be 10%-15% lower than serum/plasma values. (CLIA ID [id number]) Performed By: #### B GLU #### [facility] [address], [place] Hemogramon 02-10-2021 Erythrocyte distribution width (RBC) [Ratio] 13.4 % Normal 11.5-14.5 [facility] Comment on above: Performed By: #### B GLU #### [place] [address] [place], [place] Hematocrit (Bld) [Volume fraction] 30.8 % Low 35.0-47.0 [facility] Comment on above: Performed By: #### B GLU #### [place] [address] [place], [place] Hemoglobin (Bld) [Mass/Vol] 10.4 g/dL Low 11.7-16.0 [facility] Comment on above: Performed By: #### B GLU #### [place] [address] [place], [place] MCH (RBC) [Entitic mass] 29.5 pg Normal 26.0-34.0 [facility] Comment on above: Performed By: #### B GLU #### [place] [address] [place], [place] MCHC 33.8 % Normal 32.0-36.0 [facility] Comment on above: Performed By: #### B GLU #### [place] [address] [place], [place] MCV (RBC) [Entitic vol] 87.3 fL Normal 79.0-98.0 [facility] Comment on above: Performed By: #### B GLU #### [facility] [address], [place] Platelet mean volume (Bld) [Entitic vol] 8.3 fL Normal 7.4-10.4 [facility] Comment on above: Performed By: #### B GLU #### [place] [address] [place] [address] Platelets (Bld) [#/Vol] 204 10*3/uL Normal 140-440 [facility] Comment on above: Performed By: #### B GLU #### [place] [address] [place], [place] RBC (Bld) [#/Vol] 3.52 10*6/uL Low 3.80-5.20 [facility] Comment on above: Performed By: #### B GLU #### [place] [address] [place], [place] WBC (Bld) [#/Vol] 10.5 10*3/uL Normal 3.6-10.7 [facility] Comment on above: Performed By: #### B GLU #### [place] [address] [place], [place] Magnesiumon 02-10-2021 Magnesium [Mass/Vol] 2.8 mg/dL High 1.6-2.3 [facility] Comment on above: Performed By: #### B GLU #### [place] [address] [place], [place] Magnesium [Mass/Vol] 2.8 mg/dL High 1.6 - 2 .3 mg/dL [facility] Work Phone: Otheron 02-10-2021 Interpretation and review of laboratory results Abnormal [facility] Work Phone: Test Performed by [facility], [address] [place] [address] [facility] Work Phone: Interpretation and review of laboratory results Abnormal [facility] Work Phone: Test Performed by [facility], [address] [place] [address] [facility] Work Phone: POCT Glucoseon 02-10-2021 Glucose [Mass/Vol] 86 mg/dL 70 - 100 mg/dL [facility] Work Phone: [phone] Comment on above: Test performed by gl ucose meter. Results may be 10%-15% lower than serum/plasma values. (CLIA ID [id number]) Test Performed by [employer], [address] [place] [address] [facility] Work Phone: Glucose [Mass/Vol] 98 mg/dL 70 - 100 mg/dL [facility] Work Phone: [phone] Comment on above: Test performed by gl ucose meter. Results may be 10%-15% lower than serum/plasma values. (CLIA ID [id number]) Test Performed by [employer] [facility], [address] [place] [address] [facility] Work Phone: [phone] Glucose [Mass/Vol] 92 mg/dL 70 - 100 mg/dL [facility] Work Phone: [phone] Comment on above: Test performed by gl ucose meter. Results may be 10%-15% lower than serum/plasma values. (CLIA ID [id number]) Test Performed by [employer], [address] [place] [address] [facility] Work Phone: [phone] Glucose [Mass/Vol] 98 mg/dL 70 - 100 mg/dL [facility] Work Phone: [phone] Comment on above: Test performed by gl ucose meter. Results may be 10%-15% lower than serum/plasma values. (CLIA ID [id number]) Test Performed by [employer], [address] [place] [address] [facility] Work Phone: Glucose [Mass/Vol] 118 mg/dL High 70 - 100 mg/dL [facility] Work Phone: [phone] Comment on above: Test performed by gl ucose meter. Results may be 10%-15% lower than serum/plasma values. (CLIA ID [id number]) Interpretation and review of laboratory results Abnormal [facility] Work Phone: [phone] Test Performed by [employer], [facility] [place] [address] [facility] Work Phone: [phone] Glucose [Mass/Vol] 99 mg/dL 70 - 100 mg/dL [facility] Work Phone: [phone] Comment on above: Test performed by gl ucose meter. Results may be 10%-15% lower than serum/plasma values. (CLIA ID [id number]) Test Performed by [employer], [facility] [place] [address] [facility] Work Phone: [phone] Glucose [Mass/Vol] 101 mg/dL High 70 - 100 mg/dL [facility] Work Phone: [phone] Comment on above: Test performed by gl ucose meter. Results may be 10%-15% lower than serum/plasma values. (CLIA ID [id number]) Interpretation and review of laboratory results Abnormal [facility] Work Phone: [phone] Test Performed by [employer], [facility] [place] [address] [facility] Work Phone: [phone] Glucose [Mass/Vol] 132 mg/dL High 70 - 100 mg/dL [facility] Work Phone: [phone] Comment on above: Test performed by gl ucose meter. Results may be 10%-15% lower than serum/plasma values. (CLIA ID [id number]) Glucose [Mass/Vol] 130 mg/dL High 70 - 100 mg/dL [facility] Work Phone: [phone] Comment on above: Test performed by gl ucose meter. Results may be 10%-15% lower than serum/plasma values. (CLIA ID [id number]) Glucose [Mass/Vol] 109 mg/dL High 70 - 100 mg/dL [facility] Work Phone: Comment on above: Test performed by gl ucose meter. Results may be 10%-15% lower than serum/plasma values. (CLIA ID [id number]) Glucose [Mass/Vol] 85 mg/dL 70 - 100 mg/dL [facility] Work Phone: [phone] Comment on above: Test performed by gl ucose meter. Results may be 10%-15% lower than serum/plasma values. (CLIA ID [id number]) Test Performed by [employer], [facility] [place] [address] [facility] Work Phone: [phone] Glucose [Mass/Vol] 89 mg/dL 70 - 100 mg/dL [facility] Work Phone: [phone] Comment on above: Test performed by gl ucose meter. Results may be 10%-15% lower than serum/plasma values. (CLIA ID [id number]) Test Performed by [employer], [facility] [place] [address] [facility] Work Phone: [phone] Glucose [Mass/Vol] 96 mg/dL 70 - 100 mg/dL [facility] Work Phone: [phone] Comment on above: Test performed by gl ucose meter. Results may be 10%-15% lower than serum/plasma values. (CLIA ID [id number]) Test Performed by [employer], [facility] [place] [address] [facility] Work Phone: [phone] Glucose [Mass/Vol] 102 mg/dL High 70 - 100 mg/dL [facility] Work Phone: [phone] Comment on above: Test performed by gl ucose meter. Results may be 10%-15% lower than serum/plasma values. (CLIA ID [id number]) Interpretation and review of laboratory results Abnormal [facility] Work Phone: [phone] Test Performed by [employer], [facility] [place] [address] [facility] Work Phone: [phone] Glucose [Mass/Vol] 108 mg/dL High 70 - 100 mg/dL [facility] Work Phone: [phone] Comment on above: Test performed by gl ucose meter. Results may be 10%-15% lower than serum/plasma values. (CLIA ID [id number]) Interpretation and review of laboratory results Abnormal [facility] Work Phone: [phone] Test Performed by [employer], [facility] [place] [place] [address] [facility] Work Phone: [phone] Interpretation and review of laboratory results Abnormal [facility] Work Phone: [phone] Test Performed by [employer], [facility] [place] [address] [facility] Work Phone: [phone] Glucose [Mass/Vol] 141 mg/dL High 70 - 100 mg/dL [facility] Work Phone: [phone] Comment on above: Test performed by gl ucose meter. Results may be 10%-15% lower than serum/plasma values. (CLIA ID [id number]) Interpretation and review of laboratory results Abnormal [facility] Work Phone: [phone] Test Performed by [employer], [facility] [place] [address] [facility] Work Phone: [phone] Glucose [Mass/Vol] 141 mg/dL High 70 - 100 mg/dL [facility] Work Phone: [phone] Comment on above: Test performed by gl ucose meter. Results may be 10%-15% lower than serum/plasma values. (CLIA ID [id number]) Interpretation and review of laboratory results Abnormal [facility] Work Phone: [phone] Test Performed by [employer], [facility] [place] [address] [facility] Work Phone: [phone] Glucose [Mass/Vol] 148 mg/dL High 70 - 100 mg/dL [facility] Work Phone: [phone] Comment on above: Test performed by gl ucose meter. Results may be 10%-15% lower than serum/plasma values. (CLIA ID [id number]) Interpretation and review of laboratory results Abnormal [facility] Work Phone: [phone] Test Performed by [employer], [facility] [place] [address] [facility] Work Phone: [phone] Glucose [Mass/Vol] 131 mg/dL High 70 - 100 mg/dL [facility] Work Phone: [phone] Comment on above: Test performed by gl ucose meter. Results may be 10%-15% lower than serum/plasma values. (CLIA ID [id number]) Interpretation and review of laboratory results Abnormal [facility] Work Phone: Test Performed by [employer], [place] [address] [facility] Work Phone: [phone] Glucose [Mass/Vol] 151 mg/dL High 70 - 100 mg/dL [facility] Work Phone: [phone] Comment on above: Test performed by gl ucose meter. Results may be 10%-15% lower than serum/plasma values. (CLIA ID [id number]) Interpretation and review of laboratory results Abnormal [facility] Work Phone: [phone] Test Performed by [employer], [place] [address] [facility] Work Phone: [phone] Glucose [Mass/Vol] 170 mg/dL High 70 - 100 mg/dL [facility] Work Phone: [phone] Comment on above: Test performed by gl ucose meter. Results may be 10%-15% lower than serum/plasma values. (CLIA ID [id number]) Interpretation and review of laboratory results Abnormal [facility] Work Phone: [phone] Test Performed by [employer], [place] [address] [facility] Work Phone: [phone] Glucose [Mass/Vol] 112 mg/dL High 70 - 100 mg/dL [facility] Work Phone: [phone] Comment on above: Test performed by gl ucose meter. Results may be 10%-15% lower than serum/plasma values. (CLIA ID [id number]) Interpretation and review of laboratory results Abnormal [facility] Work Phone: [phone] Test Performed by [employer], [place] [address] [facility] Work Phone: XR CHEST PORTABLEon 02-11-20 21 Patient Name: DANII WOLFE Diagnostic Radiology ACCESSION EXAM DATE/TIME PROCEDURE ORDERING PROVIDER [id number] 02/10/2021 05:54 EDT CR Chest Portable DMITRY PENNY CPT code 16219 Reason For Exam (CR Chest Portable) Shortness of breath Report PORTABLE CHEST X-RAY CLINICAL INDICATION: Shortness of breath A portable frontal view of the chest was obtained. COMPARISON: 02/09/2021 FINDINGS: Heart size is at the upper limits of normal. Previously noted endotracheal tube and feeding tube have been removed. Right jugular [place]-Luis catheter, mediastinal drain, and left basilar chest tube are unchanged. Low lung volumes are present. There is atelectasis at the left lung base. There is no pleural effusion or evidence of pneumothorax. There are degenerative changes of the spine. IMPRESSION: Endotracheal tube and feeding tube have been withdrawn. Additional lines and tubes otherwise unchanged. Low lung volumes. Left basilar atelectasis. Report Dictated on --- Final --- Dictated: 02/10/2021 5:15 am Dictating Physician: MD VELIZ JONATHAN R Signed Date and Time: 02/10/2021 5:16 am Signed by: MD VELIZ JONATHAN R Transcribed Date and Time: 02/10/2021 5:15 [facility] Work Phone: [facility], [facility] Incoming Radiology Results From [facility] - 02/10/2021 5:54 AM EDT Patient Name: DANII WOLFE Diagnostic Radiology ACCESSION EXAM DATE/TIME PROCEDURE ORDERING PROVIDER [id number] 02/10/2021 05:54 EDT CR Chest Portable Terri DMITRY BARTLETT CPT code 51011 Reason For Exam (CR Chest Portable) Shortness of breath Report PORTABLE CHEST X-RAY CLINICAL INDICATION: Shortness of breath A portable frontal view of the chest was obtained. COMPARISON: 02/09/2021 FINDINGS: Heart size is at the upper limits of normal. Previously noted endotracheal tube and feeding tube have been removed. Right jugular [place]-Luis catheter, mediastinal drain, and left basilar chest tube are unchanged. Low lung volumes are present. There is atelectasis at the left lung base. There is no pleural effusion or evidence of pneumothorax. There are degenerative changes of the spine. IMPRESSION: Endotracheal tube and feeding tube have been withdrawn. Additional lines and tubes otherwise unchanged. Low lung volumes. Left basilar atelectasis. Report Dictated on --- Final --- Dictated: 02/10/2021 5:15 am Dictating Physician: MD VELIZ JONATHAN R Signed Date and Time: 02/10/2021 5:16 am Signed by: MD VELIZ JONATHAN R Transcribed Date and Time: 02/10/2021 5:15 [facility] Work Phone: Arterial Blood Gaseson 02-09 CO2 [Moles/Vol] 27.5 mmol/L High 23.0-27.0 [facility] Comment on above: Performed By: #### B GLU #### [place] [address] [place], [place] HCO3 (Bld) [Moles/Vol] 26.2 mmol/L High 21.0-25.0 [facility] Comment on above: Performed By: #### B GLU #### [place] [address] [place], [place] Hemoglobin (Bld) [Mass/Vol] 10.0 g/dL Normal ScreenOnly [facility] Comment on above: Performed By: #### B GLU #### [place] [address] [place], [place] Oxygen (Bld) [Partial pressure] 127.2 mm[Hg] High 80.0-100.0 [facility] Comment on above: Performed By: #### B GLU #### [place] [address] [place], [place] Oxygen saturation in Blood 97.9 % Normal 95.0-100.0 [facility] Comment on above: Performed By: #### B GLU #### [place] [address] [place], [place] pCO2 43.0 mm[Hg] Normal 35.0-45.0 [facility] Comment on above: Performed By: #### B GLU #### [place] [address] [place], [place] pH 7.403 Normal 7.350-7.450 [facility] Comment on above: Performed By: #### B GLU #### [facility] [address], [place] Std Base Excess 1.3 mmol/L Normal -3.0-3.0 [facility] Comment on above: Performed By: #### B GLU #### [facility] [address], [place] FIO2 No data Normal [facility] Comment on above: Performed By: #### B GLU #### [facility] [address], [place] Basic Metabolic Panelon - Anion gap [Moles/Vol] 11 mmol/L Normal 3-13 [facility] Comment on above: Performed By: #### B GLU #### [place] [address] [place], [place] Calcium [Mass/Vol] 9.0 mg/dL Normal 8.4-10.4 [facility] Comment on above: Performed By: #### B GLU #### [facility] [address], [place] CO2 [Moles/Vol] 23 mmol/L Normal 22-30 [facility] Comment on above: Performed By: #### B GLU #### [facility] [address], [place] Glucose [Mass/Vol] 113 mg/dL High 70-100 [facility] Comment on above: Performed By: #### B GLU #### [facility] [address], [place] Urea nitrogen [Mass/Vol] 19 mg/dL Normal 7-20 [facility] Comment on above: Performed By: #### B GLU #### [facility] [address], [place] Creatinine [Mass/Vol] 0.79 mg/dL Normal 0.52-1.25 [facility] Comment on above: Performed By: #### B GLU #### [facility] [address] [place], [place] GFR/1.73 sq M.predicted among blacks MDRD (S/P/Bld) [Vol rate/Area] 85.3 mL/min/{1.73_m2} Normal >60 [facility] Comment on above: Performed By: #### B GLU #### [address] GFR/1.73 sq M.predicted among non-blacks MDRD (S/P/Bld) [Vol rate/Area] 73.6 mL/min/{1.73_m2} Normal >60 [facility] Comment on above: Result Comment: KDIG O guidelines provide the following GFR categories: Stage GFR(ml/min/1.73 m2) Terms G1 >=90 Normal or high G2 60-89 Mildly decreased* G3a 45-59 Mildly to moderately decreased G3b 30-44 Moderately to severely decreased G4 15-29 Severely decreased G5 <15 Kidney failure *Relative to young adult level. In the absence of evidence of kidney damage, neither GFR category G1 nor G2 fulfill the criteria for CKD. The CKD-EPI equation is validated in individuals 18 years of age and older. Currently the best equation for estimating glomerular filtration rate (GFR) from serum creatinine in children is the Bedside Garcia equation. It is less accurate in patients with extremes of muscle mass, restriction of dietary protein, ingestion of creatine, extra-renal metabolism of creatinine, or treatment with medications that affect renal tubular creatinine secretion. Performed By: #### B GLU #### [address] [address] [place], [place] Potassium [Moles/Vol] 2.6 mmol/L Critically low 3.5-5.1 [facility] Comment on above: Performed By: #### B GLU #### [address] [address] [place], [place] Sodium [Moles/Vol] 142 mmol/L Normal 135-145 [facility] Comment on above: Performed By: #### B GLU #### [address] Chloride [Moles/Vol] 108 mmol/L High 98-107 [facility] Comment on above: Performed By: #### B GLU #### [address] [address] [place], [place] Anion gap [Moles/Vol] 13 mmol/L Normal 3-13 [facility] Comment on above: Performed By: #### A BG, MG3, ICA, BMP3, PHOS3, PT/AP, HEMOG ####[address] [place], [place] Calcium [Mass/Vol] 9.6 mg/dL Normal 8.4-10.4 [facility] Comment on above: Performed By: #### A BG, MG3, ICA, BMP3, PHOS3, PT/AP, HEMOG ####[address] [place], [place] CO2 [Moles/Vol] 25 mmol/L Normal 22-30 [facility] Comment on above: Performed By: #### A BG, MG3, ICA, BMP3, PHOS3, PT/AP, HEMOG ####[address] [place], [place] Glucose [Mass/Vol] 113 mg/dL High 70-100 [facility] Comment on above: Performed By: #### A BG, MG3, ICA, BMP3, PHOS3, PT/AP, HEMOG ####[address] [place], [place] Urea nitrogen [Mass/Vol] 20 mg/dL Normal 7-20 [facility] Comment on above: Performed By: #### A BG, MG3, ICA, BMP3, PHOS3, PT/AP, HEMOG ####[address] [place], [place] Creatinine [Mass/Vol] 0.83 mg/dL Normal 0.52-1.25 [facility] Comment on above: Performed By: #### A BG, MG3, ICA, BMP3, PHOS3, PT/AP, HEMOG ####[address] [place], [place] GFR/1.73 sq M.predicted among blacks MDRD (S/P/Bld) [Vol rate/Area] 80.3 mL/min/{1.73_m2} Normal >60 [facility] Comment on above: Performed By: #### A BG, MG3, ICA, BMP3, PHOS3, PT/AP, HEMOG ####[address] [place], [place] GFR/1.73 sq M.predicted among non-blacks MDRD (S/P/Bld) [Vol rate/Area] 69.3 mL/min/{1.73_m2} Normal >60 [facility] Comment on above: Result Comment: KDIG O guidelines provide the following GFR categories: Stage GFR(ml/min/1.73 m2) Terms G1 >=90 Normal or high G2 60-89 Mildly decreased* G3a 45-59 Mildly to moderately decreased G3b 30-44 Moderately to severely decreased G4 15-29 Severely decreased G5 <15 Kidney failure *Relative to young adult level. In the absence of evidence of kidney damage, neither GFR category G1 nor G2 fulfill the criteria for CKD. The CKD-EPI equation is validated in individuals 18 years of age and older. Currently the best equation for estimating glomerular filtration rate (GFR) from serum creatinine in children is the Bedside Garcia equation. It is less accurate in patients with extremes of muscle mass, restriction of dietary protein, ingestion of creatine, extra-renal metabolism of creatinine, or treatment with medications that affect renal tubular creatinine secretion. Performed By: #### A BG, MG3, ICA, BMP3, PHOS3, PT/AP, HEMOG ####[address] [place], [place] Potassium [Moles/Vol] 2.9 mmol/L Low 3.5-5.1 [facility] Comment on above: Performed By: #### A BG, MG3, ICA, BMP3, PHOS3, PT/AP, HEMOG ####[address] [place], [place] Sodium [Moles/Vol] 142 mmol/L Normal 135-145 [facility] Comment on above: Performed By: #### A BG, MG3, ICA, BMP3, PHOS3, PT/AP, HEMOG ####[address] [place], [place] Chloride [Moles/Vol] 104 mmol/L Normal 98-107 [facility] Comment on above: Performed By: #### A BG, MG3, ICA, BMP3, PHOS3, PT/AP, HEMOG ####[address] [place] [address] Anion gap [Moles/Vol] 11 mmol/L 3 - 13 mmol/L [facility] Work Phone: Calcium [Mass/Vol] 9.0 mg/dL 8.4 - 10. 4 mg/dL [facility] Work Phone: Chloride [Moles/Vol] 108 mmol/L High 98 - 10 7 mmol/L [facility] Work Phone: CO2 [Moles/Vol] 23 mmol/L 22 - 30 mmol/L [facility] Work Phone: Creatinine [Mass/Vol] 0.79 mg/dL 0.52 - 1.25 mg/dL [facility] Work Phone: EGFR IF NonAfrican [place]i 73.6 mL/min >60 [facility] Work Phone: Comment on above: KDIGO guidelines pro vide the following GFR categories: Stage GFR(ml/min/1.73 m2) Terms G1 >=90 Normal or high G2 60-89 Mildly decreased* G3a 45-59 Mildly to moderately decreased G3b 30-44 Moderately to severely decreased G4 15-29 Severely decreased G5 <15 Kidney failure *Relative to young adult level. In the absence of evidence of kidney damage, neither GFR category G1 nor G2 fulfill the criteria for CKD. The CKD-EPI equation is validated in individuals 18 years of age and older. Currently the best equation for estimating glomerular filtration rate (GFR) from serum creatinine in children is the Bedside Garcia equation. It is less accurate in patients with extremes of muscle mass, restriction of dietary protein, ingestion of creatine, extra-renal metabolism of creatinine, or treatment with medications that affect renal tubular creatinine secretion. GFR/1.73 sq M predicted among blacks MDRD (S/P/Bld) [Vol rate/Area] 85.3 mL/min/{1.73_m2} >60 [facility] Work Phone: Glucose [Mass/Vol] 113 mg/dL High 70 - 100 mg/dL [facility] Work Phone: Potassium [Moles/Vol] 2.6 mmol/L Critically low 3.5 - 5.1 mmol/L [facility] Work Phone: [phone] Sodium [Moles/Vol] 142 mmol/L 135 - 145 mmol/L [facility] Work Phone: [phone] Urea nitrogen [Mass/Vol] 19 mg/dL 7 - 20 mg/dL [facility] Work Phone: [phone] Anion gap [Moles/Vol] 13 mmol/L 3 - 13 mmol/L [facility] Work Phone: [phone] Calcium [Mass/Vol] 9.6 mg/dL 8.4 - 10. 4 mg/dL [facility] Work Phone: [phone] Chloride [Moles/Vol] 104 mmol/L 98 - 10 7 mmol/L [facility] Work Phone: [phone] CO2 [Moles/Vol] 25 mmol/L 22 - 30 mmol/L [facility] Work Phone: [phone] Creatinine [Mass/Vol] 0.83 mg/dL 0.52 - 1.25 mg/dL [facility] Work Phone: [phone] EGFR IF NonAfrican [place]i 69.3 mL/min >60 [facility] Work Phone: [phone] Comment on above: KDIGO guidelines pro vide the following GFR categories: Stage GFR(ml/min/1.73 m2) Terms G1 >=90 Normal or high G2 60-89 Mildly decreased* G3a 45-59 Mildly to moderately decreased G3b 30-44 Moderately to severely decreased G4 15-29 Severely decreased G5 <15 Kidney failure *Relative to young adult level. In the absence of evidence of kidney damage, neither GFR category G1 nor G2 fulfill the criteria for CKD. The CKD-EPI equation is validated in individuals 18 years of age and older. Currently the best equation for estimating glomerular filtration rate (GFR) from serum creatinine in children is the Bedside Garcia equation. It is less accurate in patients with extremes of muscle mass, restriction of dietary protein, ingestion of creatine, extra-renal metabolism of creatinine, or treatment with medications that affect renal tubular creatinine secretion. GFR/1.73 sq M predicted among blacks MDRD (S/P/Bld) [Vol rate/Area] 80.3 mL/min/{1.73_m2} >60 [facility] Work Phone: [phone] Glucose [Mass/Vol] 113 mg/dL High 70 - 100 mg/dL [facility] Work Phone: [phone] Potassium [Moles/Vol] 2.9 mmol/L Low 3.5 - 5.1 mmol/L [facility] Work Phone: [phone] Sodium [Moles/Vol] 142 mmol/L 135 - 145 mmol/L [facility] Work Phone: [phone] Urea nitrogen [Mass/Vol] 20 mg/dL 7 - 20 mg/dL [facility] Work Phone: [phone] Blood Gas, Arterialon 2020 Base Excess, Arterial 1.3 mmol/L -3.0 - 3.0 mmol/L [facility] Work Phone: [phone] HCO3, Arterial 26.2 mmol/L High 21.0 - 25.0 mmol/L [facility] Work Phone: [phone] Hemoglobin (Bld) [Mass/Vol] 10 g/dL ScreenOnly [facility] Work Phone: [phone] Interpretation and review of laboratory results Abnormal [facility] Work Phone: [phone] Oxygen saturation in Blood 97.9 % 95.0 - 100.0 % [facility] Work Phone: [phone] pCO2, Arterial 43.0 mm[Hg] 35.0 - 45.0 mm[Hg] [facility] Work Phone: [phone] pH, Arterial 7.403 [facility] Work Phone: 222 pO2, Arterial 127.2 mm[Hg] High 80.0 - 100.0 mm[Hg] [facility] Work Phone: [phone] Sodium [Moles/Vol] No data [facility] Work Phone: [phone] TCO2, Arterial 27.5 mmol/L High 23.0 - 27.0 mmol/L [facility] Work Phone: [phone] Test Performed by [facility], [address] [place] [id number] [facility] Work Phone: [phone] CBCon 02-09-2021 Erythrocyte distribution width (RBC) [Ratio] 13.7 % 11.5 - 14.5 % [facility] Work Phone: [phone] Hematocrit (Bld) [Volume fraction] 28.5 % Low 35.0 - 47.0 % [facility] Work Phone: 222 Hemoglobin (Bld) [Mass/Vol] 9.7 g/dL Low 11.7 - 16.0 g/dL [facility] Work Phone: [phone] Interpretation and review of laboratory results Abnormal [facility] Work Phone: MCH (RBC) [Entitic mass] 29.4 pg 26.0 - 34.0 pg [facility] Work Phone: ) MCHC (RBC) [Mass/Vol] 34.0 % 32.0 - 36.0 % [facility] Work Phone: MCV (RBC) [Entitic vol] 86.6 fL 79.0 - 98.0 fL [facility] Work Phone: Platelet mean volume (Bld) [Entitic vol] 8.1 fL 7.4 - 10.4 fL [facility] Work Phone: ) 222 Platelets (Bld) [#/Vol] 193 10*3/uL 140 - 440 10*3/uL [facility] Work Phone: ) 222 RBC (Bld) [#/Vol] 3.29 10*6/uL Low 3.80 - 5.2 0 10*6/uL [facility] Work Phone: ) 222 WBC (Bld) [#/Vol] 16.0 10*3/uL High 3.6 - 10.7 10*3/uL [facility] Work Phone: ) 222 Test Performed by [facility], [address] [place] [id number] [facility] Work Phone: ) [phone] Erythrocyte distribution width (RBC) [Ratio] 13.7 % 11.5 - 14.5 % [facility] Work Phone: Hematocrit (Bld) [Volume fraction] 27.0 % Low 35.0 - 47.0 % [facility] Work Phone: 222 Hemoglobin (Bld) [Mass/Vol] 9.0 g/dL Low 11.7 - 16.0 g/dL [facility] Work Phone: Interpretation and review of laboratory results Abnormal [facility] Work Phone: MCH (RBC) [Entitic mass] 28.8 pg 26.0 - 34.0 pg [facility] Work Phone: [phone] MCHC (RBC) [Mass/Vol] 33.2 % 32.0 - 36.0 % [facility] Work Phone: MCV (RBC) [Entitic vol] 86.7 fL 79.0 - 98.0 fL [facility] Work Phone: Platelet mean volume (Bld) [Entitic vol] 7.9 fL 7.4 - 10.4 fL [facility] Work Phone: Platelets (Bld) [#/Vol] 215 10*3/uL 140 - 440 10*3/uL [facility] Work Phone: RBC (Bld) [#/Vol] 3.11 10*6/uL Low 3.80 - 5.2 0 10*6/uL [facility] Work Phone: WBC (Bld) [#/Vol] 16.6 10*3/uL High 3.6 - 10.7 10*3/uL [facility] Work Phone: Test Performed by [facility], [address] [place] [id number] [facility] Work Phone: CR Chest Portableon 02-10-20 21 CR Chest Portable Patient Name: DANII WOLFE [facility]#: [id number] Diagnostic Radiology ACCESSION EXAM DATE/TIME PROCEDURE ORDERING PROVIDER [id number] 02/09/2021 19:15 EDT CR Chest Portable [id number] DMITRY BARTLETT CPT code 65130 Reason For Exam (CR Chest Portable) ETT placement Report CHEST PORTABLE CLINICAL INDICATION: ETT placement TECHNIQUE: Single, portable chest x-ray. COMPARISON: January,. FINDINGS: ET tube tip projects approximately 3.5 cm above the brenda. Enteric tube extends just below the diaphragm, although side-port appears above the GE junction and may be advanced somewhat. Left thoracostomy tube projects laterally over the costophrenic angle. Right IJ La Plata-Luis catheter tip projects over the main pulmonary trunk. Postsurgical changes project over the heart. Cardiac silhouette stable. Lungs show probable mild left basilar atelectasis. No focal consolidation or apparent pneumothorax. IMPRESSION: 1. Tubes, lines and postsurgical changes, as reported. 2. Probable left basilar atelectasis. Report Dictated on Workstation: JODEE Final Dictated: 02/09/2021 6:31 pm Dictating Physician: MD PAK WENDELL Signed Date and Time: 02/09/2021 6:39 pm Signed by: MD PAK WENDELL Transcribed Date and Time: 02/09/2021 6:31 Normal [facility] Calcium, Ionizedon Ionized Ca 4.60 mg/dL 4.30 - 5.20 mg/dL [facility] Work Phone: pH (Bld) 7.42 [pH] [facility] Work Phone: Test Performed by [facility], [address] [place] [id number] [place] [address] Work Phone: Calcium,Ionizedon 02-09-2021 Ionized Ca,Measured 4.60 mg/dL Normal 4.30-5.20 [facility] Comment on above: Performed By: #### B GLU #### [address] [address] pH, Ionized Calcium 7.42 Normal 7.31-7.46 [facility] Comment on above: Performed By: #### B GLU #### [address] [address] Echo 2D/3D ROHAN w/wo Contrast on 02-09-2021 Echo 2D/3D ROHAN w/wo Contrast Patient Name: DANII WOLFE Ultrasound ACCESSION EXAM DATE/TIME PROCEDURE ORDERING PROVIDER [id number] 02/09/2021 12:57 EDT Echo 2D/3D ROHAN w/wo [id number] -DMITRY BEGUM Reason For Exam (Echo 2D/3D ROHAN w/wo Contrast) Surgery Report TRANSESOPHAGEAL ECHOCARDIOGRAM PATIENT: Danii Wolfe STUDY DATE: 02/09/2021 [facility]#: [id number] : 1945 AGE: 75 HT/WT: 165.1 cm (65 96.4 kg (212 in) lb) GENDER: F BP: 149 / 76 LOCATION: [facility] PATIENT Inpatient main STATUS: *ORDERING PHYSICIAN: * Dmitry Begum *READING PHYSICIAN: * Davis Nava, *MECHANICAL MANUFACTURING TECHNICIAN: * Lois Winston RDCS, AE MD -- INDICATIONS: CABG. -- CONCLUSIONS SUMMARY: 1. Left ventricle: Systolic function is normal by visual assessment. The estimated ejection fraction is 60%. There are no regional wall motion abnormalities. 2. Right ventricle: Systolic function is normal. La Plata catherter seen in RA and RV 3. Left atrium: The atrium is normal in size. There is no evidence of a thrombus in the atrial cavity or appendage. 4. Mitral valve: Structurally normal valve. There is mild, 1+ regurgitation. 5. Aortic valve: Structurally normal valve. Trileaflet. 6. Tricuspid valve: Structurally normal valve. 7. Aorta: There is no atheroma. 8. Pericardium, extracardiac: There is a moderate-sized left pleural effusion. RECOMMENDATIONS: Findings discussed with CT surgery in OR. -- STUDY DATA: Transesophageal echocardiography was performed. Procedure: Initial setup. Surface ECG leads, blood pressure measurements, and pulse oximetric signals were monitored. A transesophageal probe was inserted by the ed teacher under direct supervision of the attending cardiologistwithout difficulty. Image quality was fair. Complete 2D, complete spectral Doppler, and Ultrasound Report color flow Doppler images were acquired and archived for permanent storage and are available for subsequent review. Study status: Routine. Patient status: Inpatient. Location: Procedure room. Consent: The risks, benefits, and alternatives to the procedure were explained to the patient and informed consent was obtained. Administered medications: General anesthesia given with Isoflurane. ECG RHYTHM: NSR -- FINDINGS LEFT VENTRICLE: The cavity size is normal. Systolic function is normal by visual assessment. The estimated ejection fraction is 60%. There are no regional wall motion abnormalities. RIGHT VENTRICLE: The cavity size is normal. Systolic function is normal. [place] catherter seen in RA and RV VENTRICULAR SEPTUM: There is no evidence of a ventricular septal defect. There is no evidence of a ventricular septal defect. LEFT ATRIUM: The atrium is normal in size. There is no evidence of a thrombus in the atrial cavity or appendage. No spontaneous echo contrast is observed. The appendage is of normal size. Emptying velocity is normal. RIGHT ATRIUM: The atrium is normal in size. ATRIAL SEPTUM: No evidence of patent foramen ovale or atrial septal defect. There is no evidence of right to left shunting with injection of agitated saline contrast. MITRAL VALVE: Structurally normal valve. Leaflet separation is normal. Doppler: There is mild, 1+ regurgitation. AORTIC VALVE: Structurally normal valve. Trileaflet. Cusp separation is normal. Doppler: There is no stenosis. There is no regurgitation. TRICUSPID VALVE: Structurally normal valve. Leaflet separation is normal. Doppler: There is trivial, less than 1+ regurgitation. PULMONIC VALVE: No thickening. Cusp separation is normal. Doppler: There is trivial, less than 1+ regurgitation. AORTA: There is no atheroma. There is no evidence for aneurysm. There is no evidence for dissection. Aortic root: The aortic root is not dilated. PULMONARY ARTERY: The main pulmonary artery is normal in size. PERICARDIUM: There is no pericardial effusion. There is a moderate-sized left pleural effusion. SYSTEMIC VEINS: Superior vena cava: The vessel is normal in size. Electronically signed by Davis Nava MD 02/10/2021 05:51 Prior Signatures: Final Dictated: 02/10/2021 5:52 am Dictating Physician: Ricardo NAVA TED Signed Date and Time: 02/10/2021 5:52 am Signed by: Ricardo NAVA TED Normal [facility] Glucose,Bedsideon 02-09-2021 Glucose [Mass/Vol] 147 mg/dL High 70100 [facility] Comment on above: Result Comment: Test performed by glucose meter. Results may be 10%-15% lower than serum/plasma values. (CLIA ID [id number]) Performed By: #### B GLU #### [facility] [employer] [facility] [place] [address] Glucose [Mass/Vol] 131 mg/dL [facility] [address] Comment on above: Result Comment: Test performed by glucose meter. Results may be 10%-15% lower than serum/plasma values. (CLIA ID [id number]) Performed By: #### B GLU #### [facility] [address] [place] [address] Glucose [Mass/Vol] 113 mg/dL High [address]0100 [facility] Comment on above: Result Comment: Test performed by glucose meter. Results may be 10%-15% lower than serum/plasma values. (CLIA ID [id number]) Performed By: #### B GLU #### [facility] [employer] [facility] [place] [address] Glucose [Mass/Vol] 106 mg/dL High [address] Comment on above: Result Comment: Test performed by glucose meter. Results may be 10%-15% lower than serum/plasma values. (CLIA ID [id number]) Performed By: #### B GLU #### [facility] [address], [place] Hemogramon 02-09-2021 Erythrocyte distribution width (RBC) [Ratio] 13.7 % Normal 11.5-14.5 [facility] Comment on above: Performed By: #### B GLU #### [address] [place], [place] Hematocrit (Bld) [Volume fraction] 28.5 % Low 35.0-47.0 [facility] Comment on above: Performed By: #### B GLU #### [address] [place], [place] Hemoglobin (Bld) [Mass/Vol] 9.7 g/dL Low 11.7-16.0 [facility] Comment on above: Performed By: #### B GLU #### [address] [place], [place] MCH (RBC) [Entitic mass] 29.4 pg Normal 26.0-34.0 [facility] Comment on above: Performed By: #### B GLU #### [address] [place], [place] MCHC 34.0 % Normal 32.0-36.0 [facility] Comment on above: Performed By: #### B GLU #### [address] [place], [place] MCV (RBC) [Entitic vol] 86.6 fL Normal 79.0-98.0 [facility] Comment on above: Performed By: #### B GLU #### [address] [place], [place] Platelet mean volume (Bld) [Entitic vol] 8.1 fL Normal 7.4-10.4 [facility] Comment on above: Performed By: #### B GLU #### [address] Platelets (Bld) [#/Vol] 193 10*3/uL Normal 140-440 [facility] Comment on above: Performed By: #### B GLU #### [address] [place], [place] RBC (Bld) [#/Vol] 3.29 10*6/uL Low 3.80-5.20 [facility] Comment on above: Performed By: #### B GLU #### [address] [place], [place] WBC (Bld) [#/Vol] 16.0 10*3/uL High 3.6-10.7 [facility] Comment on above: Performed By: #### B GLU #### [address] [place], [place] Erythrocyte distribution width (RBC) [Ratio] 13.7 % Normal 11.5-14.5 [facility] Comment on above: Performed By: #### B GLU #### [address] [place], [place] Hematocrit (Bld) [Volume fraction] 27.0 % Low 35.0-47.0 [facility] Comment on above: Performed By: #### B GLU #### [address] [place], [place] Hemoglobin (Bld) [Mass/Vol] 9.0 g/dL Low 11.7-16.0 [facility] Comment on above: Performed By: #### B GLU #### [address] [place], [place] MCH (RBC) [Entitic mass] 28.8 pg Normal 26.0-34.0 [facility] Comment on above: Performed By: #### B GLU #### [address] [place], [place] MCHC 33.2 % Normal 32.0-36.0 [facility] Comment on above: Performed By: #### B GLU #### [address] [place], [place] MCV (RBC) [Entitic vol] 86.7 fL Normal 79.0-98.0 [facility] Comment on above: Performed By: #### B GLU #### [address] [place], [place] Platelet mean volume (Bld) [Entitic vol] 7.9 fL Normal 7.4-10.4 [facility] Comment on above: Performed By: #### B GLU #### [address] [place] [address] Platelets (Bld) [#/Vol] 215 10*3/uL Normal 140-440 [facility] Comment on above: Performed By: #### B GLU #### [address] [place], [place] RBC (Bld) [#/Vol] 3.11 10*6/uL Low 3.80-5.20 [facility] Comment on above: Performed By: #### B GLU #### [address] [address] [place], [place] WBC (Bld) [#/Vol] 16.6 10*3/uL High 3.6-10.7 [facility] Comment on above: Performed By: #### B GLU #### [address] Magnesiumon 02-09-2021 Magnesium [Mass/Vol] 4.2 mg/dL High 1.6-2.3 [facility] Comment on above: Performed By: #### B GLU #### [address] Magnesium [Mass/Vol] 5.1 mg/dL Critically high 1.6-2.3 [facility] Comment on above: Performed By: #### A BG, MG3, ICA, BMP3, PHOS3, PT/AP, HEMOG ####[facility] [place], [place] Magnesium [Mass/Vol] 4.2 mg/dL High 1.6 - 2 .3 mg/dL [facility] Work Phone: Magnesium [Mass/Vol] 5.1 mg/dL Critically high 1.6 - 2.3 mg/dL [facility] Work Phone: Otheron 02-09-2021 Interpretation and review of laboratory results Abnormal [facility] Work Phone: Test Performed by [facility], [facility] [place] [address] [facility] Work Phone: [phone] Interpretation and review of laboratory results Abnormal [facility] Work Phone: [phone] Test Performed by [employer], [address] [place] [address] [facility] Work Phone: [phone] POCT Glucoseon 02-09-2021 Glucose [Mass/Vol] 192 mg/dL High 70 - 100 mg/dL [facility] Work Phone: [phone] Comment on above: Test performed by gl ucose meter. Results may be 10%-15% lower than serum/plasma values. (CLIA ID [id number]) Interpretation and review of laboratory results Abnormal [facility] Work Phone: [phone] Test Performed by [employer], [address] [address] [place] [address] [facility] Work Phone: [phone] Glucose [Mass/Vol] 172 mg/dL High 70 - 100 mg/dL [facility] Work Phone: [phone] Comment on above: Test performed by gl ucose meter. Results may be 10%-15% lower than serum/plasma values. (CLIA ID [id number]) Interpretation and review of laboratory results Abnormal [facility] Work Phone: [phone] Test Performed by [employer], [address] [place] [address] [facility] Work Phone: [phone] Glucose [Mass/Vol] 147 mg/dL High 70 - 100 mg/dL [facility] Work Phone: [phone] Comment on above: Test performed by gl ucose meter. Results may be 10%-15% lower than serum/plasma values. (CLIA ID [id number]) Interpretation and review of laboratory results Abnormal [facility] Work Phone: [phone] Test Performed by [employer], [facility] [place] [address] [facility] Work Phone: [phone] Glucose [Mass/Vol] 131 mg/dL High 70 - 100 mg/dL [facility] Work Phone: [phone] Comment on above: Test performed by gl ucose meter. Results may be 10%-15% lower than serum/plasma values. (CLIA ID [id number]) Interpretation and review of laboratory results Abnormal [employer] Work Phone: [phone] Test Performed by [employer], [facility] [employer] [place] [address] [facility] Work Phone: [phone] Glucose [Mass/Vol] 113 mg/dL High 70 - 100 mg/dL [facility] Work Phone: [phone] Comment on above: Test performed by gl ucose meter. Results may be 10%-15% lower than serum/plasma values. (CLIA ID [id number]) Interpretation and review of laboratory results Abnormal [facility] Work Phone: [phone] Test Performed by [employer], [facility] [place] [place] [address] [facility] Work Phone: [phone] Glucose [Mass/Vol] 106 mg/dL High 70 - 100 mg/dL [facility] Work Phone: [phone] Comment on above: Test performed by gl ucose meter. Results may be 10%-15% lower than serum/plasma values. (CLIA ID [id number]) Interpretation and review of laboratory results Abnormal [employer] Work Phone: [phone] Test Performed by [employer], [facility] [employer] [place] [address] [employer] Work Phone: [phone] Phosphoruson 02-09-2021 Phosphate [Mass/Vol] 2.5 mg/dL Normal 2.5-4.5 [facility] [employer] Comment on above: Performed By: #### A BG, MG3, ICA, BMP3, PHOS3, PT/AP, HEMOG ####[employer] [email or web address] [address] Phosphate [Mass/Vol] 2.5 mg/dL 2.5 - 4 .5 mg/dL [employer] Work Phone: [phone] Protime AND APTTon aPTT Coag (Bld) [Time] 22.4 s Normal 20.0-30.5 [facility] Comment on above: Result Comment: NOTE : The therapeutic time for Heparin anticoagulation, based on Xa activity inhibition, is an APTT of 46-80 seconds. Performed By: #### B GLU #### [facility] [address] [place] [address] INR 1.2 High 0.9-1.1 [facility] Comment on above: Result Comment: Feroz mmended Anticoagulant Therapy: SEE BELOW ----- INR of 2.0 - 3.0 : - Prophylaxis of Venous Thrombosis (high-risk surgery) - Treatment of Venous Thrombosis - Treatment of Pulmonary Embolism (Includes tissue heart valves, Acute Myocardial Infarction to prevent systemic embolism, Valvular Heart Disease, and Atrial Fibrillation) ----- INR of 2.5 - 3.5 : - Mechanical Prosthetic Valves (high risk) - If oral anticoagulant therapy is used to prevent Myocardial Infarction Performed By: #### B GLU #### [address] [place] [address] PT Coag (PPP) [Time] 12.7 s High 9.0-12.0 [facility] Comment on above: Result Comment: . Performed By: #### B GLU #### [facility] [employer] [address] [place] [address] Protime/INR & PTTon 02-10-20 21 aPTT Coag (Bld) [Time] 22.4 s 20.0 - 30.5 s [facility] Work Phone: Comment on above: NOTE: The therapeuti c time for Heparin anticoagulation, based on Xa activity inhibition, is an APTT of 46-80 seconds. INR Coag (PPP) [Relative time] 1.2 {INR} High [facility] Work Phone: Comment on above: Recommended Anticoag ulant Therapy: SEE BELOW ----- INR of 2.0 - 3.0 : - Prophylaxis of Venous Thrombosis (high-risk surgery) - Treatment of Venous Thrombosis - Treatment of Pulmonary Embolism (Includes tissue heart valves, Acute Myocardial Infarction to prevent systemic embolism, Valvular Heart Disease, and Atrial Fibrillation) ----- INR of 2.5 - 3.5 : - Mechanical Prosthetic Valves (high risk) - If oral anticoagulant therapy is used to prevent Myocardial Infarction Interpretation and review of laboratory results Abnormal [facility] Work Phone: PT Coag (PPP) [Time] 12.7 s High 9.0 - 12.0 s [facility] Work Phone: Comment on above: . Test Performed by [facility], [address] [place] [address] [facility] Work Phone: XR CHEST PORTABLEon 02-10-20 Patient Name: DANII WOLFE Diagnostic Radiology ACCESSION EXAM DATE/TIME PROCEDURE ORDERING PROVIDER [id number] 02/09/2021 19:15 EDT CR Chest Portable DMITRY PENNY CPT code 53195 Reason For Exam (CR Chest Portable) ETT placement Report CHEST PORTABLE CLINICAL INDICATION: ETT placement TECHNIQUE: Single, portable chest x-ray. COMPARISON: January,. FINDINGS: ET tube tip projects approximately 3.5 cm above the brenda. Enteric tube extends just below the diaphragm, although side-port appears above the GE junction and may be advanced somewhat. Left thoracostomy tube projects laterally over the costophrenic angle. Right IJ La Plata-Luis catheter tip projects over the main pulmonary trunk. Postsurgical changes project over the heart. Cardiac silhouette stable. Lungs show probable mild left basilar atelectasis. No focal consolidation or apparent pneumothorax. IMPRESSION: 1. Tubes, lines and postsurgical changes, as reported. 2. Probable left basilar atelectasis. Report Dictated on Workstation: [id number] --- Final --- Dictated: 02/09/2021 6:31 pm Dictating Physician: MD PAK WENDELL Signed Date and Time: 02/09/2021 6:39 pm Signed by: MD PAK WENDELL Transcribed Date and Time: 02/09/2021 6:31 [facility] Work Phone: Bunny, [facility] Incoming Rad[facility] Results From [facility] - 02/09/2021 7:15 PM EDT Patient Name: DANII WOLFE Diagnostic Radiology ACCESSION EXAM DATE/TIME PROCEDURE ORDERING PROVIDER [id number] 02/09/2021 19:15 EDT CR Chest Portable DMITRY PENNY CPT code 49965 Reason For Exam (CR Chest Portable) ETT placement Report CHEST PORTABLE CLINICAL INDICATION: ETT placement TECHNIQUE: Single, portable chest x-ray. COMPARISON: January,. FINDINGS: ET tube tip projects approximately 3.5 cm above the brenda. Enteric tube extends just below the diaphragm, although side-port appears above the GE junction and may be advanced somewhat. Left thoracostomy tube projects laterally over the costophrenic angle. Right IJ La Plata-Luis catheter tip projects over the main pulmonary trunk. Postsurgical changes project over the heart. Cardiac silhouette stable. Lungs show probable mild left basilar atelectasis. No focal consolidation or apparent pneumothorax. IMPRESSION: 1. Tubes, lines and postsurgical changes, as reported. 2. Probable left basilar atelectasis. Report Dictated on Workstation: [email or web address] --- Final --- Dictated: 02/09/2021 6:31 pm Dictating Physician: MD PAK WENDELL Signed Date and Time: 02/09/2021 6:39 pm Signed by: MD PAK WENDELL Transcribed Date and Time: 02/09/2021 6:31 [facility] Work Phone: APTTon 02-08-2021 aPTT Coag (Bld) [Time] 23.1 s Normal 20.0-30.5 [facility] Comment on above: Result Comment: NOTE : The therapeutic time for Heparin anticoagulation, based on Xa activity inhibition, is an APTT of 46-80 seconds. Performed By: #### H EMDF, PT, APTT ####[employer] [address] [place] [address] aPTT Coag (Bld) [Time] 23.1 s 20.0 - 30.5 s [facility] Work Phone: Comment on above: NOTE: The therapeuti c time for Heparin anticoagulation, based on Xa activity inhibition, is an APTT of 46-80 seconds. CBC auto differentialon 01-24 Absolute Baso # 0.0 10*3/uL 0.0 - 0.2 10*3/uL [facility] Work Phone: Absolute Neut # 7.3 10*3/uL High 1.8 - 7.0 10*3/uL [facility] Work Phone: [phone]) 222 Basophils/100 WBC (Bld) 0.4 % 0.0 - 2.0 % [facility] Work Phone: [phone]) 222 Eosinophils (Bld) [#/Vol] 0.3 10*3/uL 0.0 - 0.5 10*3/uL [facility] Work Phone: [phone]) 222 Eosinophils/100 WBC (Bld) 2.6 % 1.0 - 6.0 % [facility] Work Phone: [phone]) 222 Erythrocyte distribution width (RBC) [Ratio] 13.8 % 11.5 - 14.5 % [facility] Work Phone: [phone]) 222 Granulocytes/100 WBC (Bld) 67.9 % 40.0 - 80.0 % [facility] Work Phone: ) 222 Hematocrit (Bld) [Volume fraction] 42.4 % 35.0 - 47.0 % [employer] Work Phone: ) 222 Hemoglobin (Bld) [Mass/Vol] 14.3 g/dL 11.7 - 16.0 g/dL [employer] Work Phone: [phone]) 222 Interpretation and review of laboratory results Abnormal [facility] Work Phone: [phone]) 222 Lymphocytes (Bld) [#/Vol] 2.4 10*3/uL 1.0 - 4.3 10*3/uL [employer] Work Phone: [phone]) 222 Lymphocytes/100 WBC (Bld) 21.9 % 20.0 - 40.0 % [facility] Work Phone: 1) 222 MCH (RBC) [Entitic mass] 29.2 pg 26.0 - 34.0 pg [facility] Work Phone: [phone]) 222 MCHC (RBC) [Mass/Vol] 33.6 % 32.0 - 36.0 % [facility] Work Phone: [phone]) 222 MCV (RBC) [Entitic vol] 86.8 fL 79.0 - 98.0 fL [facility] Work Phone: [phone] Monocytes (Bld) [#/Vol] 0.8 10*3/uL 0.0 - 0.8 10*3/uL [facility] Work Phone: Monocytes/100 WBC (Bld) 7.2 % 2.0 - 10.0 % [employer] Work Phone: Platelet mean volume (Bld) [Entitic vol] 8.4 fL 7.4 - 10.4 fL [employer] Work Phone: Platelets (Bld) [#/Vol] 361 10*3/uL 140 - 440 10*3/uL [facility] Work Phone: RBC (Bld) [#/Vol] 4.89 10*6/uL 3.80 - 5.2 0 10*6/uL [employer] Work Phone: WBC (Bld) [#/Vol] 10.8 10*3/uL High 3.6 - 10.7 10*3/uL [employer] Work Phone: [phone] Test Performed by [facility] [employer], [address] [place], [place] [id number] [place], [place] [address] Work Phone: [phone] Glucose,Bedsideon 02-08-2021 Glucose [Mass/Vol] 284 mg/dL High [address] Comment on above: Result Comment: Test performed by glucose meter. Results may be 10%-15% lower than serum/plasma values. (CLIA ID [id number]) Performed By: #### B GLU #### [employer] [address] [place] [address] Glucose [Mass/Vol] 181 mg/dL [facility] [address] Comment on above: Result Comment: Test performed by glucose meter. Results may be 10%-15% lower than serum/plasma values. (CLIA ID [id number]) Performed By: #### B GLU ####[address] [place] [address] Glucose [Mass/Vol] 265 mg/dL [facility] [address] Comment on above: Result Comment: Test performed by glucose meter. Results may be 10%-15% lower than serum/plasma values. (CLIA ID [id number]) Performed By: #### B GLU #### [employer] [address] [place], [place] Glucose [Mass/Vol] 204 mg/dL High 70-100 [facility] Comment on above: Result Comment: Test performed by glucose meter. Results may be 10%-15% lower than serum/plasma values. (CLIA ID [id number]) Performed By: #### B GLU #### [facility] [address] [place], [place] Glucose [Mass/Vol] 178 mg/dL High 70-100 [facility] Comment on above: Result Comment: Test performed by glucose meter. Results may be 10%-15% lower than serum/plasma values. (CLIA ID [id number]) Performed By: #### B GLU #### [facility] [address] [place], [place] Hemogram w/ Autodiffon 02-08 Abs Baso Cnt 0.0 10*3/uL Normal 0.0-0.2 [facility] Comment on above: Performed By: #### H EMDF, PT, APTT ####[facility] [id number] [place], [place] Abs Neutrophile Cnt 7.3 10*3/uL High 1.8-7.0 [facility] Comment on above: Performed By: #### H EMDF, PT, APTT ####[address] [place], [place] Basophils/100 WBC (Bld) 0.4 % Normal 0.0-2.0 [facility] Comment on above: Performed By: #### H EMDF, PT, APTT ####[address] [place], [place] Eosinophils (Bld) [#/Vol] 0.3 10*3/uL Normal 0.0-0.5 [facility] Comment on above: Performed By: #### H EMDF, PT, APTT ####[address] [place], [place] Eosinophils/100 WBC (Bld) 2.6 % Normal 1.0-6.0 [facility] Comment on above: Performed By: #### H EMDF, PT, APTT ####[address] Erythrocyte distribution width (RBC) [Ratio] 13.8 % Normal 11.5-14.5 [facility] Comment on above: Performed By: #### H EMDF, PT, APTT ####[address] Granulocytes/100 WBC (Bld) 67.9 % Normal 40.0-80.0 [facility] Comment on above: Performed By: #### H EMDF, PT, APTT ####[address] Hematocrit (Bld) [Volume fraction] 42.4 % Normal 35.0-47.0 [facility] Comment on above: Performed By: #### H EMDF, PT, APTT ####[address] Hemoglobin (Bld) [Mass/Vol] 14.3 g/dL Normal 11.7-16.0 [facility] Comment on above: Performed By: #### H EMDF, PT, APTT ####[address] Lymphocytes (Bld) [#/Vol] 2.4 10*3/uL Normal 1.0-4.3 [facility] Comment on above: Performed By: #### H EMDF, PT, APTT ####[address] Lymphocytes/100 WBC (Bld) 21.9 % Normal 20.0-40.0 [facility] Comment on above: Performed By: #### H EMDF, PT, APTT ####[address] MCH (RBC) [Entitic mass] 29.2 pg Normal 26.0-34.0 [facility] Comment on above: Performed By: #### H EMDF, PT, APTT ####[address] MCHC 33.6 % Normal 32.0-36.0 [facility] Comment on above: Performed By: #### H EMDF, PT, APTT ####[address] [place], [place] MCV (RBC) [Entitic vol] 86.8 fL Normal 79.0-98.0 [facility] Comment on above: Performed By: #### H EMDF, PT, APTT ####[address] Monocytes (Bld) [#/Vol] 0.8 10*3/uL Normal 0.0-0.8 [facility] Comment on above: Performed By: #### H EMDF, PT, APTT ####[address] Monocytes/100 WBC (Bld) 7.2 % Normal 2.0-10.0 [facility] Comment on above: Performed By: #### H EMDF, PT, APTT ####[address] Platelet mean volume (Bld) [Entitic vol] 8.4 fL Normal 7.4-10.4 [facility] Comment on above: Performed By: #### H EMDF, PT, APTT ####[address] Platelets (Bld) [#/Vol] 361 10*3/uL Normal 140-440 [facility] Comment on above: Performed By: #### H EMDF, PT, APTT ####[address] RBC (Bld) [#/Vol] 4.89 10*6/uL Normal 3.80-5.20 [facility] Comment on above: Performed By: #### H EMDF, PT, APTT ####[address] WBC (Bld) [#/Vol] 10.8 10*3/uL High 3.6-10.7 [facility] [facility] Comment on above: Performed By: #### H EMDF, PT, APTT ####[facility] [id number] [place] [address] Otheron 02-08-2021 Test Performed by [employer], [facility] [place] [address] [facility] Work Phone: [phone] POCT Glucoseon 02-08-2021 Glucose [Mass/Vol] 284 mg/dL High 70 - 100 mg/dL [employer] Work Phone: [phone] Comment on above: Test performed by gl ucose meter. Results may be 10%-15% lower than serum/plasma values. (CLIA ID [id number]) Interpretation and review of laboratory results Abnormal [employer] Work Phone: [phone] Test Performed by [employer], [facility] [place] [address] [facility] Work Phone: [phone] Glucose [Mass/Vol] 181 mg/dL High 70 - 100 mg/dL [employer] Work Phone: [phone] Comment on above: Test performed by gl ucose meter. Results may be 10%-15% lower than serum/plasma values. (CLIA ID [id number]) Interpretation and review of laboratory results Abnormal [employer] Work Phone: [phone] Test Performed by [employer], [facility] [place] [address] [facility] Work Phone: [phone] Glucose [Mass/Vol] 265 mg/dL High 70 - 100 mg/dL [facility] Work Phone: [phone] Comment on above: Test performed by gl ucose meter. Results may be 10%-15% lower than serum/plasma values. (CLIA ID [id number]) Interpretation and review of laboratory results Abnormal [facility] Work Phone: Test Performed by [employer], [facility] [place] [address] [facility] Work Phone: [phone] Glucose [Mass/Vol] 204 mg/dL High 70 - 100 mg/dL [facility] Work Phone: Comment on above: Test performed by gl ucose meter. Results may be 10%-15% lower than serum/plasma values. (CLIA ID [id number]) Interpretation and review of laboratory results Abnormal [employer] Work Phone: Test Performed by [employer], [facility] [place] [place] [address] [employer] Work Phone: Glucose [Mass/Vol] 178 mg/dL High 70 - 100 mg/dL [facility] Work Phone: [phone] Comment on above: Test performed by gl ucose meter. Results may be 10%-15% lower than serum/plasma values. (CLIA ID [id number]) Interpretation and review of laboratory results Abnormal [facility] Work Phone: Test Performed by [employer], [facility] [place] [address] [employer] Work Phone: Prothrombin Timeon INR 1.0 Normal 0.9-1.1 [facility] [employer] Comment on above: Result Comment: Feroz mmended Anticoagulant Therapy: SEE BELOW ----- INR of 2.0 - 3.0 : - Prophylaxis of Venous Thrombosis (high-risk surgery) - Treatment of Venous Thrombosis - Treatment of Pulmonary Embolism (Includes tissue heart valves, Acute Myocardial Infarction to prevent systemic embolism, Valvular Heart Disease, and Atrial Fibrillation) ----- INR of 2.5 - 3.5 : - Mechanical Prosthetic Valves (high risk) - If oral anticoagulant therapy is used to prevent Myocardial Infarction Performed By: #### H EMDF, PT, APTT ####[employer] [place] [address] PT Coag (PPP) [Time] 11.2 s Normal 9.0-12.0 [facility] [employer] Comment on above: Result Comment: . Performed By: #### H EMDF, PT, APTT ####[employer] [employer] [place] [address] Protime-INRon 02-08-2021 INR Coag (PPP) [Relative time] 1.0 {INR} [facility] Work Phone: Comment on above: Recommended Anticoag ulant Therapy: SEE BELOW ----- INR of 2.0 - 3.0 : - Prophylaxis of Venous Thrombosis (high-risk surgery) - Treatment of Venous Thrombosis - Treatment of Pulmonary Embolism (Includes tissue heart valves, Acute Myocardial Infarction to prevent systemic embolism, Valvular Heart Disease, and Atrial Fibrillation) ----- INR of 2.5 - 3.5 : - Mechanical Prosthetic Valves (high risk) - If oral anticoagulant therapy is used to prevent Myocardial Infarction PT Coag (PPP) [Time] 11.2 s 9.0 - 12.0 s [employer] Work Phone: Comment on above: . TS GELon 02-08-2021 TS GEL ABO Group: A Rh, Gel: POS Antibody Screen Gel: NEG Normal [employer] Comment on above: Performed By: #### L RC #### [address] [address] #### TSGL #### [employer] TYPE AND SCREENon 02-08-2021 Sodium [Moles/Vol] A [facility] Work Phone: Sodium [Moles/Vol] Positive [facility] Work Phone: Sodium [Moles/Vol] Negative [facility] Work Phone: Test Performed by [employer], [address] [place] [address] [facility] Work Phone: CR Chest Portableon 02-08-20 21 CR Chest Portable Patient Name: DANII WOLFE Diagnostic Radiology ACCESSION EXAM DATE/TIME PROCEDURE ORDERING PROVIDER [id number] 02/07/2021 06:56 EDT CR Chest Portable MEETA BATES JAN C CPT code 10919 Reason For Exam (CR Chest Portable) pre op heart surgeyr Report PORTABLE CHEST (Frontal View) History: Preop heart surgery Comparison: 02/05/2021 Findings: Frontal portable chest view shows mild interstitial prominence of the lungs with linear small basilar atelectasis without acute infiltrate or congestion. The heart is normal in size. There is no mediastinal widening,, pleural effusion, or other significant change from the prior exam. Surgical clips overlie the bilateral chest wall/axilla. There is spondylosis. IMPRESSION: Mild chronic changes. No acute pulmonary process. Report Dictated on Final Dictated: 02/07/2021 7:34 am Dictating Physician: MD BRAND AHMAD Signed Date and Time: 02/07/2021 7:36 am Signed by: MD BRAND AHMAD Transcribed Date and Time: 02/07/2021 7:34 Normal [facility] Glucose,Bedsideon 02-07-2021 Glucose [Mass/Vol] 159 mg/dL High 70-100 [facility] Comment on above: Result Comment: Test performed by glucose meter. Results may be 10%-15% lower than serum/plasma values. (CLIA ID [id number]) Performed By: #### B GLU ####[facility] [place] [address] Glucose [Mass/Vol] 218 mg/dL High 70-100 [facility] Comment on above: Result Comment: Test performed by glucose meter. Results may be 10%-15% lower than serum/plasma values. (CLIA ID [id number]) Performed By: #### B GLU #### [facility] [address] [place] [address] Glucose [Mass/Vol] 205 mg/dL High 70-100 [facility] Comment on above: Result Comment: Test performed by glucose meter. Results may be 10%-15% lower than serum/plasma values. (CLIA ID [id number]) Performed By: #### B GLU #### [facility] [address] [place] [address] POCT Glucoseon 02-07-2021 Glucose [Mass/Vol] 159 mg/dL High 70 - 100 mg/dL [facility] Work Phone: Comment on above: Test performed by gl ucose meter. Results may be 10%-15% lower than serum/plasma values. (CLIA ID [id number]) Interpretation and review of laboratory results Abnormal [facility] Work Phone: Test Performed by [facility], [address] [place] [address] [facility] Work Phone: Glucose [Mass/Vol] 218 mg/dL High 70 - 100 mg/dL [facility] Work Phone: Comment on above: Test performed by gl ucose meter. Results may be 10%-15% lower than serum/plasma values. (CLIA ID [id number]) Interpretation and review of laboratory results Abnormal [facility] Work Phone: Test Performed by [employer], [facility] [place] [address] [facility] Work Phone: Glucose [Mass/Vol] 205 mg/dL High 70 - 100 mg/dL [facility] Work Phone: Comment on above: Test performed by gl ucose meter. Results may be 10%-15% lower than serum/plasma values. (CLIA ID [id number]) Interpretation and review of laboratory results Abnormal [facility] Work Phone: Test Performed by [employer], [facility] [place] [address] [facility] Work Phone: XR CHEST PORTABLEon 02-08-20 Patient Name: DANII WOLFE Diagnostic Radiology ACCESSION EXAM DATE/TIME PROCEDURE ORDERING PROVIDER [id number] 02/07/2021 06:56 EDT CR Chest Portable MEETA BATES KOFFI Mary CPT code 40928 Reason For Exam (CR Chest Portable) pre op heart surgeyr Report PORTABLE CHEST (Frontal View) History: Preop heart surgery Comparison: 02/05/2021 Findings: Frontal portable chest view shows mild interstitial prominence of the lungs with linear small basilar atelectasis without acute infiltrate or congestion. The heart is normal in size. There is no mediastinal widening,, pleural effusion, or other significant change from the prior exam. Surgical clips overlie the bilateral chest wall/axilla. There is spondylosis. IMPRESSION: Mild chronic changes. No acute pulmonary process. Report Dictated on --- Final --- Dictated: 02/07/2021 7:34 am Dictating Physician: MD BRAND AHMAD Signed Date and Time: 02/07/2021 7:36 am Signed by: MD BRAND AHMAD Transcribed Date and Time: 02/07/2021 7:34 [facility] Work Phone: [facility] Results From [facility] - 02/07/2021 7:37 AM EDT Patient Name: DANII WOLFE Diagnostic Radiology ACCESSION EXAM DATE/TIME PROCEDURE ORDERING PROVIDER [id number] 02/07/2021 06:56 EDT CR Chest Portable MEETA BATES, Nov CPT code 13940 Reason For Exam (CR Chest Portable) pre op heart surgeyr Report PORTABLE CHEST (Frontal View) History: Preop heart surgery Comparison: 02/05/2021 Findings: Frontal portable chest view shows mild interstitial prominence of the lungs with linear small basilar atelectasis without acute infiltrate or congestion. The heart is normal in size. There is no mediastinal widening,, pleural effusion, or other significant change from the prior exam. Surgical clips overlie the bilateral chest wall/axilla. There is spondylosis. IMPRESSION: Mild chronic changes. No acute pulmonary process. Report Dictated on --- Final --- Dictated: 02/07/2021 7:34 am Dictating Physician: MD BRAND AHMAD Signed Date and Time: 02/07/2021 7:36 am Signed by: MD BRAND AHMAD Transcribed Date and Time: 02/07/2021 7:34 [facility] Work Phone: Glucose,Bedsideon 02-06-2021 Glucose [Mass/Vol] 275 mg/dL High 70-100 [facility] Angio[facility] Comment on above: Result Comment: Test performed by glucose meter. Results may be 10%-15% lower than serum/plasma values. (CLIA ID [id number]) Performed By: #### B GLU #### [address] [address] Glucose [Mass/Vol] 149 mg/dL High 70-100 [facility] Comment on above: Result Comment: Test performed by glucose meter. Results may be 10%-15% lower than serum/plasma values. (CLIA ID [id number]) Performed By: #### B GLU #### [facility] [address] [place] [address] Glucose [Mass/Vol] 154 mg/dL High 70-100 [facility] Comment on above: Result Comment: Test performed by glucose meter. Results may be 10%-15% lower than serum/plasma values. (CLIA ID [id number]) Performed By: #### B GLU ####[facility] [address] [place] [address] Glucose [Mass/Vol] 189 mg/dL High 70-100 [facility] Comment on above: Result Comment: Test performed by glucose meter. Results may be 10%-15% lower than serum/plasma values. (CLIA ID [id number]) Performed By: #### B GLU #### [facility] [address] [place] [address] POCT Glucoseon 02-06-2021 Glucose [Mass/Vol] 275 mg/dL High 70 - 100 mg/dL [facility] Work Phone: Comment on above: Test performed by gl ucose meter. Results may be 10%-15% lower than serum/plasma values. (CLIA ID [id number]) Interpretation and review of laboratory results Abnormal [facility] Work Phone: Test Performed by [employer], [address] [place] [address] [facility] Work Phone: Glucose [Mass/Vol] 149 mg/dL High 70 - 100 mg/dL [facility] Work Phone: Comment on above: Test performed by gl ucose meter. Results may be 10%-15% lower than serum/plasma values. (CLIA ID [id number]) Interpretation and review of laboratory results Abnormal [facility] Work Phone: Test Performed by [employer], [address] [place] [address] [facility] Work Phone: Glucose [Mass/Vol] 154 mg/dL High 70 - 100 mg/dL [facility] Work Phone: Comment on above: Test performed by gl ucose meter. Results may be 10%-15% lower than serum/plasma values. (CLIA ID [id number]) Interpretation and review of laboratory results Abnormal [facility] Work Phone: Test Performed by [employer], [facility] [place] [address] [facility] Work Phone: Glucose [Mass/Vol] 189 mg/dL High 70 - 100 mg/dL [facility] Work Phone: Comment on above: Test performed by gl ucose meter. Results may be 10%-15% lower than serum/plasma values. (CLIA ID [id number]) Interpretation and review of laboratory results Abnormal [facility] Work Phone: Test Performed by [employer], [facility] [place] [address] [facility] Work Phone: CR Chest Portableon 02-06-20 21 CR Chest Portable Patient Name: DANII WOLFE Diagnostic Radiology ACCESSION EXAM DATE/TIME PROCEDURE ORDERING PROVIDER [id number] 02/05/2021 05:58 EST CR Chest Portable MEETA BATES JAN C CPT code 21475 Reason For Exam (CR Chest Portable) pre op heart surgeyr Report PORTABLE CHEST X-RAY CLINICAL INDICATION: Preoperative examination A portable frontal view of the chest was obtained. COMPARISON: 02/04/2021 FINDINGS: The cardiac silhouette is within normal limits. No focal consolidation is seen within the lungs. There is no large pleural effusion or pneumothorax. The bony structures of the chest are unremarkable as visualized. IMPRESSION: No acute cardiopulmonary disease. Report Dictated on Final Dictated: 02/05/2021 7:06 am Dictating Physician: MD VELIZ JONATHAN R Signed Date and Time: 02/05/2021 7:06 am Signed by: MD VELIZ JONATHAN R Transcribed Date and Time: 02/05/2021 7:06 Normal [facility] Glucose,Bedsideon 02-05-2021 Glucose [Mass/Vol] 228 mg/dL High 70-100 [facility] Comment on above: Result Comment: Test performed by glucose meter. Results may be 10%-15% lower than serum/plasma values. (CLIA ID [id number]) Performed By: #### B GLU #### [facility] [address] [place] [address] Glucose [Mass/Vol] 214 mg/dL High 70-100 [facility] Comment on above: Result Comment: Test performed by glucose meter. Results may be 10%-15% lower than serum/plasma values. (CLIA ID [id number]) Performed By: #### B GLU #### [address] [place] [address] Glucose [Mass/Vol] 160 mg/dL High 70-100 [facility] Comment on above: Result Comment: Test performed by glucose meter. Results may be 10%-15% lower than serum/plasma values. (CLIA ID [id number]) Performed By: #### B GLU #### [address] [place] [address] Glucose [Mass/Vol] 177 mg/dL High 70-100 [facility] Comment on above: Result Comment: Test performed by glucose meter. Results may be 10%-15% lower than serum/plasma values. (CLIA ID [id number]) Performed By: #### B GLU #### [address] [place] [address] POCT Glucoseon 02-05-2021 Glucose [Mass/Vol] 228 mg/dL High 70 - 100 mg/dL [facility] Work Phone: Comment on above: Test performed by gl ucose meter. Results may be 10%-15% lower than serum/plasma values. (CLIA ID [id number]) Interpretation and review of laboratory results Abnormal [facility] Work Phone: Test Performed by [facility], [address] [place] [address] [facility] Work Phone: Glucose [Mass/Vol] 214 mg/dL High 70 - 100 mg/dL [facility] Work Phone: Comment on above: Test performed by gl ucose meter. Results may be 10%-15% lower than serum/plasma values. (CLIA ID [id number]) Interpretation and review of laboratory results Abnormal [facility] Work Phone: Test Performed by [employer], [place] [address] [facility] Work Phone: Glucose [Mass/Vol] 160 mg/dL High 70 - 100 mg/dL [facility] Work Phone: [phone] Comment on above: Test performed by gl ucose meter. Results may be 10%-15% lower than serum/plasma values. (CLIA ID [id number]) Interpretation and review of laboratory results Abnormal [facility] Work Phone: Test Performed by [employer], [facility] [place] [address] [facility] Work Phone: Glucose [Mass/Vol] 177 mg/dL High 70 - 100 mg/dL [facility] Work Phone: Comment on above: Test performed by gl ucose meter. Results may be 10%-15% lower than serum/plasma values. (CLIA ID [id number]) Interpretation and review of laboratory results Abnormal [facility] Work Phone: Test Performed by [employer], [place] [address] [facility] Work Phone: XR CHEST PORTABLEon 02-06-20 Patient Name: DANII WOLFE Diagnostic Radiology ACCESSION EXAM DATE/TIME PROCEDURE ORDERING PROVIDER [id number] 02/05/2021 05:58 EST CR Chest Portable MEETA BATES KOFFI Mary CPT code 72447 Reason For Exam (CR Chest Portable) pre op heart surgeyr Report PORTABLE CHEST X-RAY CLINICAL INDICATION: Preoperative examination A portable frontal view of the chest was obtained. COMPARISON: 02/04/2021 FINDINGS: The cardiac silhouette is within normal limits. No focal consolidation is seen within the lungs. There is no large pleural effusion or pneumothorax. The bony structures of the chest are unremarkable as visualized. IMPRESSION: No acute cardiopulmonary disease. Report Dictated on --- Final --- Dictated: 02/05/2021 7:06 am Dictating Physician: MD VELIZ JONATHAN R Signed Date and Time: 02/05/2021 7:06 am Signed by: MD VELIZ JONATHAN R Transcribed Date and Time: 02/05/2021 7:06 [facility] Work Phone: [facility] Results From [employer] - 02/05/2021 7:07 AM EST Patient Name: DANII WOLFE Diagnostic Radiology ACCESSION EXAM DATE/TIME PROCEDURE ORDERING PROVIDER [id number] 02/05/2021 05:58 EST CR Chest Portable MEETA BATES KOFFI Mary CPT code 08484 Reason For Exam (CR Chest Portable) pre op heart surgeyr Report PORTABLE CHEST X-RAY CLINICAL INDICATION: Preoperative examination A portable frontal view of the chest was obtained. COMPARISON: 02/04/2021 FINDINGS: The cardiac silhouette is within normal limits. No focal consolidation is seen within the lungs. There is no large pleural effusion or pneumothorax. The bony structures of the chest are unremarkable as visualized. IMPRESSION: No acute cardiopulmonary disease. Report Dictated on --- Final --- Dictated: 02/05/2021 7:06 am Dictating Physician: MD VELIZ JONATHAN R Signed Date and Time: 02/05/2021 7:06 am Signed by: MD VELIZ JONATHAN R Transcribed Date and Time: 02/05/2021 7:06 [facility] Work Phone: Basic Metabolic Panelon 01-24 Calcium [Mass/Vol] 9.2 mg/dL Normal 8.4-10.4 [facility] Comment on above: Performed By: #### B GLU #### [facility] [address] [address] Anion gap [Moles/Vol] 7 mmol/L Normal 3-13 [facility] Comment on above: Performed By: #### B GLU #### [facility] [address] [place], [place] CO2 [Moles/Vol] 31 mmol/L High 22-30 [facility] Comment on above: Performed By: #### B GLU #### [facility] [address] [place], [place] Creatinine [Mass/Vol] 0.81 mg/dL Normal 0.52-1.25 [facility] Comment on above: Performed By: #### B GLU #### [facility] [address] [place], [place] GFR/1.73 sq M.predicted among blacks MDRD (S/P/Bld) [Vol rate/Area] 82.7 mL/min/{1.73_m2} Normal >60 [facility] Comment on above: Performed By: #### B GLU #### [facility] [address] [place], [place] GFR/1.73 sq M.predicted among non-blacks MDRD (S/P/Bld) [Vol rate/Area] 71.4 mL/min/{1.73_m2} Normal >60 [facility] Comment on above: Result Comment: KDIG O guidelines provide the following GFR categories: Stage GFR(ml/min/1.73 m2) Terms G1 >=90 Normal or high G2 60-89 Mildly decreased* G3a 45-59 Mildly to moderately decreased G3b 30-44 Moderately to severely decreased G4 15-29 Severely decreased G5 <15 Kidney failure *Relative to young adult level. In the absence of evidence of kidney damage, neither GFR category G1 nor G2 fulfill the criteria for CKD. The CKD-EPI equation is validated in individuals 18 years of age and older. Currently the best equation for estimating glomerular filtration rate (GFR) from serum creatinine in children is the Bedside Garcia equation. It is less accurate in patients with extremes of muscle mass, restriction of dietary protein, ingestion of creatine, extra-renal metabolism of creatinine, or treatment with medications that affect renal tubular creatinine secretion. Performed By: #### B GLU #### [facility] [address] [place], [place] Glucose [Mass/Vol] 184 mg/dL High 70-100 [facility] Comment on above: Performed By: #### B GLU #### [facility] [address] [place], [place] Urea nitrogen [Mass/Vol] 26 mg/dL High 7-20 [facility] Comment on above: Performed By: #### B GLU #### [facility] [address] [place], [place] Chloride [Moles/Vol] 99 mmol/L Normal 98-107 [facility] Comment on above: Performed By: #### B GLU #### [facility] [address] [place], [place] Potassium [Moles/Vol] 3.8 mmol/L Normal 3.5-5.1 [facility] Comment on above: Performed By: #### B GLU #### [facility] [address] [place], [place] Sodium [Moles/Vol] 137 mmol/L Normal 135-145 [facility] Comment on above: Performed By: #### B GLU #### [facility] [address] [place], [place] Anion gap [Moles/Vol] 7 mmol/L 3 - 13 mmol/L [facility] Work Phone: Calcium [Mass/Vol] 9.2 mg/dL 8.4 - 10. 4 mg/dL [facility] Work Phone: Chloride [Moles/Vol] 99 mmol/L 98 - 10 7 mmol/L [facility] Work Phone: CO2 [Moles/Vol] 31 mmol/L High 22 - 30 mmol/L [facility] Work Phone: Creatinine [Mass/Vol] 0.81 mg/dL 0.52 - 1.25 mg/dL [facility] Work Phone: EGFR IF NonAfrican Yemeni 71.4 mL/min >60 [facility] Work Phone: Comment on above: KDIGO guidelines pro vide the following GFR categories: Stage GFR(ml/min/1.73 m2) Terms G1 >=90 Normal or high G2 60-89 Mildly decreased* G3a 45-59 Mildly to moderately decreased G3b 30-44 Moderately to severely decreased G4 15-29 Severely decreased G5 <15 Kidney failure *Relative to young adult level. In the absence of evidence of kidney damage, neither GFR category G1 nor G2 fulfill the criteria for CKD. The CKD-EPI equation is validated in individuals 18 years of age and older. Currently the best equation for estimating glomerular filtration rate (GFR) from serum creatinine in children is the Bedside Garcia equation. It is less accurate in patients with extremes of muscle mass, restriction of dietary protein, ingestion of creatine, extra-renal metabolism of creatinine, or treatment with medications that affect renal tubular creatinine secretion. GFR/1.73 sq M predicted among blacks MDRD (S/P/Bld) [Vol rate/Area] 82.7 mL/min/{1.73_m2} >60 [facility] Work Phone: Glucose [Mass/Vol] 184 mg/dL High 70 - 100 mg/dL [facility] Work Phone: Interpretation and review of laboratory results Abnormal [facility] Work Phone: Potassium [Moles/Vol] 3.8 mmol/L 3.5 - 5.1 mmol/L [facility] Work Phone: Sodium [Moles/Vol] 137 mmol/L 135 - 145 mmol/L [facility] Work Phone: Urea nitrogen [Mass/Vol] 26 mg/dL High 7 - 20 mg/dL [facility] Work Phone: Test Performed by [address] [address] [facility] Work Phone: CBCon 02-04-2021 Erythrocyte distribution width (RBC) [Ratio] 14.1 % 11.5 - 14.5 % [facility] Work Phone: Hematocrit (Bld) [Volume fraction] 36.6 % 35.0 - 47.0 % [facility] Work Phone: Hemoglobin (Bld) [Mass/Vol] 12.4 g/dL 11.7 - 16.0 g/dL [facility] Work Phone: [phone] MCH (RBC) [Entitic mass] 29.4 pg 26.0 - 34.0 pg [facility] Work Phone: MCHC (RBC) [Mass/Vol] 33.7 % 32.0 - 36.0 % [facility] Work Phone: MCV (RBC) [Entitic vol] 87.2 fL 79.0 - 98.0 fL [employer] Work Phone: Platelet mean volume (Bld) [Entitic vol] 8.2 fL 7.4 - 10.4 fL [facility] Work Phone: [phone] Platelets (Bld) [#/Vol] 311 10*3/uL 140 - 440 10*3/uL [facility] Work Phone: [phone] RBC (Bld) [#/Vol] 4.20 10*6/uL 3.80 - 5.2 0 10*6/uL [facility] Work Phone: WBC (Bld) [#/Vol] 9.6 10*3/uL 3.6 - 10.7 10*3/uL [facility] Work Phone: Test Performed by [facility], [address] [place] [address] [employer] Work Phone: CR Chest Portableon 02-05-20 21 CR Chest Portable Patient Name: DANII WOLFE Diagnostic Radiology ACCESSION EXAM DATE/TIME PROCEDURE ORDERING PROVIDER [id number] 02/04/2021 08:09 EST CR Chest Portable MEETA BATES JAN C CPT code 43028 Reason For Exam (CR Chest Portable) pre op heart surgeyr Report CHEST: CLINICAL INDICATION: Preoperative evaluation for heart surgery TECHNIQUE: AP portable chest COMPARISON: None FINDINGS: The heart demonstrates normal size. Calcification of the thoracic aorta is noted. Surgical clips overlie the bilateral chest. There are coarse interstitial markings likely related to chronic pulmonary disease. No consolidation or pulmonary edema. There is no sizable pleural effusion. Degenerative change of the thoracic spine is noted. IMPRESSION: Coarse interstitial markings likely related to chronic pulmonary disease. No consolidation or pulmonary edema. 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: [facility] : 1945 Requested By: KOFFI BATES Order Number: [id number] Reading MD: Tiffany Wilson Measurements Intervals Griffin Rate: 56 P: 9 WV: 142 QRS: 21 QRSD: 114 T: -15 QT: 430 QTc: 416 Interpretive Statements Sinus bradycardia Borderline T abnormalities, inferior leads Electronically Signed On 02-04-2021 12:22:43 EST by Tiffany Wilson [employer] Work Phone: [facility] Test Date: 2021-02-03 Pat Name: Danii Wolfe Department: [facility] Room: 137 Gender: F Computing Machine Operator: [facility] : 1945 Requested By: KOFFI BATES Order Number: [id number] Reading MD: Tiffany Wilson Measurements Intervals Griffin Rate: 56 P: 9 WV: 142 QRS: 21 QRSD: 114 T: -15 QT: 430 QTc: 416 Interpretive Statements Sinus bradycardia Borderline T abnormalities, inferior leads Electronically Signed On 02-04-2021 12:22:43 EST by Tiffany Wilson [employer] Work Phone: Glucose,Bedsideon 02-04-2021 Glucose [Mass/Vol] 231 mg/dL High 70-100 [facility] Comment on above: Result Comment: Test performed by glucose meter. Results may be 10%-15% lower than serum/plasma values. (CLIA ID [id number]) Performed By: #### B GLU #### [facility] [address] [address] Glucose [Mass/Vol] 218 mg/dL High 70-100 [facility] Comment on above: Result Comment: Test performed by glucose meter. Results may be 10%-15% lower than serum/plasma values. (CLIA ID [id number]) Performed By: #### B GLU ####[facility] [id number] [place] [address] Glucose [Mass/Vol] 134 mg/dL High 70-100 [facility] Comment on above: Result Comment: Test performed by glucose meter. Results may be 10%-15% lower than serum/plasma values. (CLIA ID [id number]) Performed By: #### B GLU ####[facility] [id number] [place] [address] Glucose [Mass/Vol] 145 mg/dL High 70-100 [facility] Comment on above: Result Comment: Test performed by glucose meter. Results may be 10%-15% lower than serum/plasma values. (CLIA ID [id number]) Performed By: #### B GLU #### [facility] [address] [address] HEMOGLOBIN A1Con 02-04-2021 eAG 189 mg/dL [facility] Work Phone: HbA1c (Bld) [Mass fraction] 8.2 % Abnormal [facility] Work Phone: Comment on above: Normal less than 5.7 % Prediabetes 5.7% to 6.4% Diabetes 6.5% or higher --HgbA1C levels may not be accurate in patients who have renal disease, received recent blood transfusions, are anemic, or who have dyshemoglobinemia. Interpretation and review of laboratory results Abnormal [facility] Work Phone: Test Performed by [facility], [facility] [place], [place] [id number] [place] [address] Work Phone: Hemoglobin A1Con 02-04-2021 Glucose [Mass/Vol] 189 mg/dL Normal [facility] Comment on above: Performed By: #### B GLU #### [address] [place], [place] HbA1c (Bld) [Mass fraction] 8.2 % Abnormal [facility] Comment on above: Result Comment: Norm al less than 5.7% Prediabetes 5.7% to 6.4% Diabetes 6.5% or higher --HgbA1C levels may not be accurate in patients who have renal disease, received recent blood transfusions, are anemic, or who have dyshemoglobinemia. Performed By: #### B GLU #### [address] [place], [place] Hemogramon 02-04-2021 Erythrocyte distribution width (RBC) [Ratio] 14.1 % Normal 11.5-14.5 [facility] Comment on above: Performed By: #### B GLU #### [address] Hematocrit (Bld) [Volume fraction] 36.6 % Normal 35.0-47.0 [facility] Comment on above: Performed By: #### B GLU #### [address] [address] [place], [place] Hemoglobin (Bld) [Mass/Vol] 12.4 g/dL Normal 11.7-16.0 [facility] Comment on above: Performed By: #### B GLU #### [address] MCH (RBC) [Entitic mass] 29.4 pg Normal 26.0-34.0 [facility] Comment on above: Performed By: #### B GLU #### [address] MCHC 33.7 % Normal 32.0-36.0 [facility] Comment on above: Performed By: #### B GLU #### [address] MCV (RBC) [Entitic vol] 87.2 fL Normal 79.0-98.0 [facility] Comment on above: Performed By: #### B GLU #### [address] Platelet mean volume (Bld) [Entitic vol] 8.2 fL Normal 7.4-10.4 [facility] Comment on above: Performed By: #### B GLU #### [facility] [address] [address] [place], [place] Platelets (Bld) [#/Vol] 311 10*3/uL Normal 140-440 [facility] Comment on above: Performed By: #### B GLU #### [facility] [address] [address] [address] [place], [place] RBC (Bld) [#/Vol] 4.20 10*6/uL Normal 3.80-5.20 [facility] Comment on above: Performed By: #### B GLU #### [facility] [address] [address] [address] [place], [place] WBC (Bld) [#/Vol] 9.6 10*3/uL Normal 3.6-10.7 [facility] [employer] Comment on above: Performed By: #### B GLU #### [facility] [address] [address] [address] [place], [place] POCT Glucoseon 02-04-2021 Glucose [Mass/Vol] 231 mg/dL High 70 - 100 mg/dL [facility] Work Phone: Comment on above: Test performed by gl ucose meter. Results may be 10%-15% lower than serum/plasma values. (CLIA ID [id number]) Interpretation and review of laboratory results Abnormal [facility] Work Phone: Test Performed by [employer], [address] [place] [address] [facility] Work Phone: Glucose [Mass/Vol] 218 mg/dL High 70 - 100 mg/dL [facility] Work Phone: Comment on above: Test performed by gl ucose meter. Results may be 10%-15% lower than serum/plasma values. (CLIA ID [id number]) Interpretation and review of laboratory results Abnormal [facility] Work Phone: Test Performed by [employer], [address] [place] [address] [facility] Work Phone: Glucose [Mass/Vol] 134 mg/dL High 70 - 100 mg/dL [employer] Work Phone: Comment on above: Test performed by [employer] ucose meter. Results may be 10%-15% lower than serum/plasma values. (CLIA ID [id number]) Interpretation and review of laboratory results Abnormal [employer] Work Phone: Test Performed by [employer], [place] [address] [employer] Work Phone: Glucose [Mass/Vol] 145 mg/dL High 70 - 100 mg/dL [employer] Work Phone: Comment on above: Test performed by [employer] ucose meter. Results may be 10%-15% lower than serum/plasma values. (CLIA ID [id number]) Interpretation and review of laboratory results Abnormal [employer] Work Phone: Test Performed by [employer], [place] [address] [employer] Work Phone: VL CAROTID BILATERALon 02-[address] [facility], [facility] Incoming Cardiology Results From [facility]/[place] - 02/04/2021 2:46 PM EST [facility] -- Carotid Duplex Report Patient Aiden, : 1945 Study 02/04/2021 Name: Danii Zazueta (75yrs) Date: Age: 75 Account: [id number] Gender: F Loc: BP: Ordering Physician: Koffi Bates Offshore Wind Operations Manager: Olivier Bonilla RVT Interpreting Physician: Erna Cerda MD -- Location: [facility] -- Indications: Carotid stenosis. Pre-op evaluation. -- Conclusions 1. Normal study involving the right internal carotid artery. 2. Mild carotid disease present with less than 50% stenosis involving the left internal carotid artery. 3. Antegrade flow noted in the right vertebral artery. 4. Antegrade flow noted in the left vertebral artery. -- History: Risk factors: Hypertension. Diabetes mellitus. Hyperlipidemia. Bedrest Age over 65 years. -- Study data: Complete carotid duplex study. Grayscale 2D imaging, color Doppler imaging, and spectral Doppler analysis. Location: Vascular laboratory. Procedure: A vascular evaluation was performed with the patient in the supine position. Images were obtained using a jobandtalent E9 vascular ultrasound machine. -- Findings Carotid/vertebral arteries: Right common carotid: The vessel is normal; it has no evidence of disease. Right internal carotid: The vessel is normal; it has no evidence of disease. Right external carotid: The vessel is normal; it has no evidence of disease. Right vertebral: The arterial flow direction is antegrade. Left vertebral: The arterial flow direction is antegrade. Left common carotid: The vessel is normal; it has no evidence of disease. Left internal carotid: The vessel has minor luminal irregularities and heterogeneous plaque. Left external carotid: The vessel is normal; it has no evidence of disease. -- Arterial flow: + +------- ----+ + +Location +PSV(cm/sec)+EDV(cm/sec )+ + +------- ----+ + +R CCA , prox +70 +0 + + +------- ----+ + +R CCA , mid +65 +14 + + +------- ----+ + +R CCA , distal+79 +16 + + +------- ----+ + +R ICA , prox +55 +14 + + +------- ----+ + +R ICA , mid +72 +20 + + +------- ----+ + +R ICA , distal+87 +20 + + +------- ----+ + +R ECA +140 +9 + + +------- ----+ + +R vertebral +55 +15 + + +------- ----+ + +R subclavian +162 +0 + + +------- ----+ + +L CCA , prox +97 +21 + + +------- ----+ + +L CCA , mid +88 +23 + + +------- ----+ + +L CCA , distal+79 +19 + + +------- ----+ + +L ICA , prox +83 +25 + + +------- ----+ + +L ICA , mid +80 +20 + + +------- ----+ + +L ICA , distal+95 +24 + + +------- ----+ + +L ECA +124 +0 + + +------- ----+ + +L vertebral +47 +10 + + +------- ----+ + +L subclavian +167 +0 + + +------- ----+ + Velocity ratios: + -+-----+-----+ + +R PSV+L PSV+ + -+-----+-----+ +Max ICA / Mid CCA Ratio+1.34 +1.07 + + -+-----+-----+ Prepared and electronically signed by Erna Cerda MD 02/04/2021 14:46 [facility] Work Phone: [facility] -- Carotid Duplex Report Patient KLEBER Wolfe: 1945 Study 02/04/2021 Name: Danii Zazueta (75yrs) Date: Age: 75 Account: [id number] Gender: F Loc: BP: Ordering Physician: Koffi Bates [employer]shore Wind Operations Manager: Olivier Bonilla RVT Interpreting Physician: Erna Cerda MD -- Location: [facility] -- Indications: Carotid stenosis. Pre-op evaluation. -- Conclusions 1. Normal study involving the right internal carotid artery. 2. Mild carotid disease present with less than 50% stenosis involving the left internal carotid artery. 3. Antegrade flow noted in the right vertebral artery. 4. Antegrade flow noted in the left vertebral artery. -- History: Risk factors: Hypertension. Diabetes mellitus. Hyperlipidemia. Bedrest Age over 65 years. -- Study data: Complete carotid duplex study. Grayscale 2D imaging, color Doppler imaging, and spectral Doppler analysis. Location: Vascular laboratory. Procedure: A vascular evaluation was performed with the patient in the supine position. Images were obtained using a jobandtalent E9 vascular ultrasound machine. -- Findings Carotid/vertebral arteries: Right common carotid: The vessel is normal; it has no evidence of disease. Right internal carotid: The vessel is normal; it has no evidence of disease. Right external carotid: The vessel is normal; it has no evidence of disease. Right vertebral: The arterial flow direction is antegrade. Left vertebral: The arterial flow direction is antegrade. Left common carotid: The vessel is normal; it has no evidence of disease. Left internal carotid: The vessel has minor luminal irregularities and heterogeneous plaque. Left external carotid: The vessel is normal; it has no evidence of disease. -- Arterial flow: + +------- ----+ + +Location +PSV(cm/sec)+EDV(cm/sec )+ + +------- ----+ + +R CCA , prox +70 +0 + + +------- ----+ + +R CCA , mid +65 +14 + + +------- ----+ + +R CCA , distal+79 +16 + + +------- ----+ + +R ICA , prox +55 +14 + + +------- ----+ + +R ICA , mid +72 +20 + + +------- ----+ + +R ICA , distal+87 +20 + + +------- ----+ + +R ECA +140 +9 + + +------- ----+ + +R vertebral +55 +15 + + +------- ----+ + +R subclavian +162 +0 + + +------- ----+ + +L CCA , prox +97 +21 + + +------- ----+ + +L CCA , mid +88 +23 + + +------- ----+ + +L CCA , distal+79 +19 + + +------- ----+ + +L ICA , prox +83 +25 + + +------- ----+ + +L ICA , mid +80 +20 + + +------- ----+ + +L ICA , distal+95 +24 + + +------- ----+ + +L ECA +124 +0 + + +------- ----+ + +L vertebral +47 +10 + + +------- ----+ + +L subclavian +167 +0 + + +------- ----+ + Velocity ratios: + -+-----+-----+ + +R PSV+L PSV+ + -+-----+-----+ +Max ICA / Mid CCA Ratio+1.34 +1.07 + + -+-----+-----+ Prepared and electronically signed by Erna Cerda MD 02/04/2021 14:46 [facility] Work Phone: VL Carotid Duplex Ultrasound Completeon 02-04-2021 VL Carotid Duplex Ultrasound Complete [facility]: [id number] ACCESSION EXAM DATE/TIME PROCEDURE ORDERING PROVIDER [id number] 02/04/2021 10:55 EST VL Carotid Duplex MEETA BATES JAN C Ultrasound Complete CPT code 82375 Reason For Exam (VL Carotid Duplex Ultrasound Complete) pre op CABG next week Report [facility] -- Carotid Duplex Report Patient DO AidenB: 1945 Study 02/04/2021 Name: Danii Zazueta (75yrs) Date: Age: 75 Account: [id number] Gender: F Loc: BP: Ordering Physician: Koffi Bates Offshore Wind Operations Manager: Olivier Bonilla RVT Interpreting Physician: Erna Cerda MD -- Location: [facility] -- Indications: Carotid stenosis. Pre-op evaluation. -- Conclusions 1. Normal study involving the right internal carotid artery. 2. Mild carotid disease present with less than 50% stenosis involving the left internal carotid artery. 3. Antegrade flow noted in the right vertebral artery. 4. Antegrade flow noted in the left vertebral artery. -- History: Risk factors: Hypertension. Diabetes mellitus. Hyperlipidemia. Bedrest Age over 65 years. -- Study data: Complete carotid duplex study. Grayscale 2D imaging, color Doppler imaging, and spectral Doppler analysis. Location: Vascular laboratory. Procedure: A vascular evaluation was performed with the patient in the supine position. Images were obtained using a jobandtalent E9 vascular ultrasound machine. Ultrasound Report -- Findings Carotid/vertebral arteries: Right common carotid: The vessel is normal; it has no evidence of disease. Right internal carotid: The vessel is normal; it has no evidence of disease. Right external carotid: The vessel is normal; it has no evidence of disease. Right vertebral: The arterial flow direction is antegrade. Left vertebral: The arterial flow direction is antegrade. Left common carotid: The vessel is normal; it has no evidence of disease. Left internal carotid: The vessel has minor luminal irregularities and heterogeneous plaque. Left external carotid: The vessel is normal; it has no evidence of disease. -- Arterial flow: + +------- ----+ + +Location +PSV(cm/sec)+EDV(cm/sec )+ + +------- ----+ + +R CCA , prox +70 +0 + + +------- ----+ + +R CCA , mid +65 +14 + + +------- ----+ + +R CCA , distal+79 +16 + + +------- ----+ + +R ICA , prox +55 +14 + + +------- ----+ + +R ICA , mid +72 +20 + + +------- ----+ + +R ICA , distal+87 +20 + + +------- ----+ + +R ECA +140 +9 + + +------- ----+ + +R vertebral +55 +15 + + +------- ----+ + +R subclavian +162 +0 + + +------- ----+ + +L CCA , prox +97 +21 + + +------- ----+ + +L CCA , mid +88 +23 + + +------- ----+ + +L CCA , distal+79 +19 + + +------- ----+ + +L ICA , prox +83 +25 + + +------- ----+ + +L ICA , mid +80 +20 + + +------- ----+ + +L ICA , distal+95 +24 + + +------- ----+ + +L ECA +124 +0 + + +------- ----+ + +L vertebral +47 +10 + + +------- ----+ + +L subclavian +167 +0 + + +------- ----+ + Velocity ratios: Ultrasound Report + -+-----+-----+ + +R PSV+L PSV+ + -+-----+-----+ +Max ICA / Mid CCA Ratio+1.34 +1.07 + + -+-----+-----+ Prepared and electronically signed by Erna Cerda MD 02/04/2021 14:46 Final Dictated: 02/04/2021 2:46 pm Dictating Physician: ERNA CERDA Signed Date and Time: 02/04/2021 2:46 pm Signed by: ERNA CERDA Cardiovascular ACCESSION EXAM DATE/TIME PROCEDURE [id number] 02/04/2021 10:55 EST VL Carotid Duplex Ultrasound Complete CPT code 04466 Reason For Exam (VL Carotid Duplex Ultrasound Complete) pre op CABG next week Report [facility] -- Carotid Duplex Report Patient DO AidenB (more content not included)... Normal [employer] XR CHEST PORTABLEon 02-05-20 Patient Name: DANII WOLFE Diagnostic Radiology ACCESSION EXAM DATE/TIME PROCEDURE ORDERING PROVIDER [id number] 02/04/2021 08:09 EST CR Chest Portable MEETA BATES JAN C CPT code 14006 Reason For Exam (CR Chest Portable) pre op heart surgeyr Report CHEST: CLINICAL INDICATION: Preoperative evaluation for heart surgery TECHNIQUE: AP portable chest COMPARISON: None FINDINGS: The heart demonstrates normal size. Calcification of the thoracic aorta is noted. Surgical clips overlie the bilateral chest. There are coarse interstitial markings likely related to chronic pulmonary disease. No consolidation or pulmonary edema. There is no sizable pleural effusion. Degenerative change of the thoracic spine is noted. IMPRESSION: Coarse interstitial markings likely related to chronic pulmonary disease. No consolidation or pulmonary edema. Report Dictated on --- Final --- Dictated: 02/04/2021 9:28 am Dictating Physician: MD PEARSON NICHOLAS Signed Date and Time: 02/04/2021 9:28 am Signed by: MD PEARSON NICHOLAS Transcribed Date and Time: 02/04/2021 9:28 [facility] Work Phone: [facility] From [facility] - 02/04/2021 9:30 AM EST Patient Name: DANII WOLFE Diagnostic Radiology ACCESSION EXAM DATE/TIME PROCEDURE ORDERING PROVIDER [id number] 02/04/2021 08:09 EST CR Chest Portable MEETA BATES JAN C CPT code 46065 Reason For Exam (CR Chest Portable) pre op heart surgeyr Report CHEST: CLINICAL INDICATION: Preoperative evaluation for heart surgery TECHNIQUE: AP portable chest COMPARISON: None FINDINGS: The heart demonstrates normal size. Calcification of the thoracic aorta is noted. Surgical clips overlie the bilateral chest. There are coarse interstitial markings likely related to chronic pulmonary disease. No consolidation or pulmonary edema. There is no sizable pleural effusion. Degenerative change of the thoracic spine is noted. IMPRESSION: Coarse interstitial markings likely related to chronic pulmonary disease. No consolidation or pulmonary edema. Report Dictated on --- Final --- Dictated: 02/04/2021 9:28 am Dictating Physician: MD PEARSON NICHOLAS Signed Date and Time: 02/04/2021 9:28 am Signed by: MD PEARSON NICHOLAS Transcribed Date and Time: 02/04/2021 9:28 [facility] Work Phone: Basic Metabolic Panelon 01-24 Calcium [Mass/Vol] 9.3 mg/dL Normal 8.4-10.4 [facility] Comment on above: Performed By: #### L RC #### [address] [address] #### TSGL #### [facility] Glucose [Mass/Vol] 255 mg/dL High 70-100 [facility] Comment on above: Performed By: #### L RC #### [address] [address] #### TSGL #### [facility] GFR/1.73 sq M.predicted among non-blacks MDRD (S/P/Bld) [Vol rate/Area] 82.3 mL/min/{1.73_m2} Normal >60 [facility] Comment on above: Result Comment: KDIG O guidelines provide the following GFR categories: Stage GFR(ml/min/1.73 m2) Terms G1 >=90 Normal or high G2 60-89 Mildly decreased* G3a 45-59 Mildly to moderately decreased G3b 30-44 Moderately to severely decreased G4 15-29 Severely decreased G5 <15 Kidney failure *Relative to young adult level. In the absence of evidence of kidney damage, neither GFR category G1 nor G2 fulfill the criteria for CKD. The CKD-EPI equation is validated in individuals 18 years of age and older. Currently the best equation for estimating glomerular filtration rate (GFR) from serum creatinine in children is the Bedside Garcia equation. It is less accurate in patients with extremes of muscle mass, restriction of dietary protein, ingestion of creatine, extra-renal metabolism of creatinine, or treatment with medications that affect renal tubular creatinine secretion. Performed By: #### L RC #### [address] [address] #### TSGL #### [facility] Potassium [Moles/Vol] 3.8 mmol/L Normal 3.5-5.1 [facility] Comment on above: Performed By: #### L RC #### [address] [address] #### TSGL #### [facility] Chloride [Moles/Vol] 99 mmol/L Normal 98-107 [facility] Comment on above: Performed By: #### L RC #### [address] [address] #### TSGL #### [facility] Sodium [Moles/Vol] 138 mmol/L Normal 135-145 [facility] Comment on above: Performed By: #### L RC #### [address] [address] #### TSGL #### [facility] Anion gap [Moles/Vol] 10 mmol/L Normal 3-13 [facility] Work Phone: Comment on above: Performed By: #### L RC #### [address] [address] #### TSGL #### [facility] CO2 [Moles/Vol] 29 mmol/L Normal 22-30 [facility] Work Phone: Comment on above: Performed By: #### L RC #### [address] [address] #### TSGL #### [facility] Creatinine [Mass/Vol] 0.72 mg/dL Normal 0.52-1.25 [facility] Work Phone: Comment on above: Performed By: #### L RC #### [address] [address] #### TSGL #### [facility] GFR/1.73 sq M predicted among blacks MDRD (S/P/Bld) [Vol rate/Area] mL/min/{1.73_m2} Normal >60 [facility] Work Phone: Comment on above: Performed By: #### L RC #### [address] [address] #### TSGL #### [facility] Urea nitrogen [Mass/Vol] 25 mg/dL High 7-20 [facility] Work Phone: Comment on above: Performed By: #### L RC #### [address] [address] #### TSGL #### [facility] Calcium [Mass/Vol] 9.3 mg/dL 8.4 - 10. 4 mg/dL [facility] Work Phone: [phone] Chloride [Moles/Vol] 99 mmol/L 98 - 10 7 mmol/L [facility] Work Phone: [phone] EGFR IF NonAfrican [place]i 82.3 mL/min >60 [facility] Work Phone: Comment on above: KDIGO guidelines pro vide the following GFR categories: Stage GFR(ml/min/1.73 m2) Terms G1 >=90 Normal or high G2 60-89 Mildly decreased* G3a 45-59 Mildly to moderately decreased G3b 30-44 Moderately to severely decreased G4 15-29 Severely decreased G5 <15 Kidney failure *Relative to young adult level. In the absence of evidence of kidney damage, neither GFR category G1 nor G2 fulfill the criteria for CKD. The CKD-EPI equation is validated in individuals 18 years of age and older. Currently the best equation for estimating glomerular filtration rate (GFR) from serum creatinine in children is the Bedside Garcia equation. It is less accurate in patients with extremes of muscle mass, restriction of dietary protein, ingestion of creatine, extra-renal metabolism of creatinine, or treatment with medications that affect renal tubular creatinine secretion. Glucose [Mass/Vol] 255 mg/dL High 70 - 100 mg/dL [facility] Work Phone: [phone] Interpretation and review of laboratory results Abnormal [facility] Work Phone: [phone] Potassium [Moles/Vol] 3.8 mmol/L 3.5 - 5.1 mmol/L [facility] Work Phone: [phone] Sodium [Moles/Vol] 138 mmol/L 135 - 145 mmol/L [facility] Work Phone: Test Performed by [facility], [address] [place] [address] [facility] Work Phone: Bedside spirometryon Name: DANII WOLFE PatientID: [id number] Gender: Female Birthdate: 1945 Study Date: 02/03/2021 10:02:54 Age: 75 Race: White or Height: 65.0 in, 165.1 cm Weight: 213.0 lbs, 96.8 kg Smoke Status: Never Pack Years: Tbco Prod: Cigarettes Ordering Physician: [id number] Interpreting Physician: [id number] Computing Machine Operator: FRANCISCO J OCONNELL Testing Location: [facility] Diagnosis: pre op Spirometry Units Pred PreDrug Pre%Pred Post Post%Pred %Change FVC L,btps 2.97 2.03 68. FEV1 L,btps 2.24 1.63 73. FEV1/FVC (%) % 75. 80. 107. RIN50-81% L/s 1.77 1.72 97. FEFmax L/s 5.48 3.29 60. MVV in,btps 83.44 7.98 10. Lung Volumes (Body Box) Units Pred PreDrug Pre%Pred TLC L,btps 5.15 VC L,btps 2.97 IC L,btps 2.37 FRC L,btps 2.77 ERV L,btps 0.60 RV L,btps 2.17 RV/TLC (%) % 42. VTG L,btps RAW H2O/L/s 1.38 SGaw cmH2O/L 0.26 Diffusion (DLCO) Units Pred PreDrug Pre%Pred DLCO ml/min/mmHg,stpd 22.52 DLCOHb ml/min/mmHg,stpd 22.52 VAsb L,btps 5.01 D/VAsb ml/min/mmHg/L,stpd 4.49 D/VAsbHb ml/min/mmHg/L,stpd 4.49 VInsp L Hgb g/dl COHb % Lung Mechanics Units Pred PreDrug Pre%Pred PImax /MIP cmH2O -74.22 PEmax /MEP cmH2O 94.31 COMPUTER CUSTOMER SUPPORT SPECIALIST NOTES Calibration check passed with acceptable system performance. Spirometry best effort, met acceptability and repeatability guidelines. Patient sitting on side of bed for testing. [address]38- ROWDY Tests to perform: RT17 - BEDSIDE SPIROMETRY PHYSICIAN INTERPRETATION The quality of the study is fair. Spirometry suggestive of a moderate restrictive ventilatory defect. Clinical and radiographic correlation and/or confirmation of restriction with full lung function testing is recommended. [facility] Work Phone: [place], [facility] Incoming Cardiology Results From [facility] - 02/04/2021 4:50 PM EST Name: DANII WOLFE PatientID: [id number] Gender: Female Birthdate: 1945 Study Date: 02/03/2021 10:02:54 Age: 75 Race: White or Height: 65.0 in, 165.1 cm Weight: 213.0 lbs, 96.8 kg Smoke Status: Never Pack Years: Tbco Prod: Cigarettes Ordering Physician: [id number] Interpreting Physician: [id number] Computing Machine Operator: FRANCISCO J OCONNELL Testing Location: [facility] Diagnosis: pre op Spirometry Units Pred PreDrug Pre%Pred Post Post%Pred %Change FVC L,btps 2.97 2.03 68. FEV1 L,btps 2.24 1.63 73. FEV1/FVC (%) % 75. 80. 107. EQX65-22% L/s 1.77 1.72 97. FEFmax L/s 5.48 3.29 60. MVV in,btps 83.44 7.98 10. Lung Volumes (Body Box) Units Pred PreDrug Pre%Pred TLC L,btps 5.15 VC L,btps 2.97 IC L,btps 2.37 FRC L,btps 2.77 ERV L,btps 0.60 RV L,btps 2.17 RV/TLC (%) % 42. VTG L,btps RAW H2O/L/s 1.38 SGaw cmH2O/L 0.26 Diffusion (DLCO) Units Pred PreDrug Pre%Pred DLCO ml/min/mmHg,stpd 22.52 DLCOHb ml/min/mmHg,stpd 22.52 VAsb L,btps 5.01 D/VAsb ml/min/mmHg/L,stpd 4.49 D/VAsbHb ml/min/mmHg/L,stpd 4.49 VInsp L Hgb g/dl COHb % Lung Mechanics Units Pred PreDrug Pre%Pred PImax /MIP cmH2O -74.22 PEmax /MEP cmH2O 94.31 COMPUTER CUSTOMER SUPPORT SPECIALIST NOTES Calibration check passed with acceptable system performance. Spirometry best effort, met acceptability and repeatability guidelines. Patient sitting on side of bed for testing. 11059- ROWDY Tests to perform: RT17 - BEDSIDE SPIROMETRY PHYSICIAN INTERPRETATION The quality of the study is fair. Spirometry suggestive of a moderate restrictive ventilatory defect. Clinical and radiographic correlation and/or confirmation of restriction with full lung function testing is recommended. [facility] Work Phone: [phone] CBCon 02-03-2021 Erythrocyte distribution width (RBC) [Ratio] 13.7 % 11.5 - 14.5 % [facility] Work Phone: 1 Hematocrit (Bld) [Volume fraction] 37.7 % 35.0 - 47.0 % [facility] Work Phone: 1 Hemoglobin (Bld) [Mass/Vol] 12.4 g/dL 11.7 - 16.0 g/dL [facility] Work Phone: [phone] Interpretation and review of laboratory results Abnormal [facility] Work Phone: 1) MCH (RBC) [Entitic mass] 28.9 pg 26.0 - 34.0 pg [facility] Work Phone: MCHC (RBC) [Mass/Vol] 33.0 % 32.0 - 36.0 % [facility] Work Phone: 1) MCV (RBC) [Entitic vol] 87.6 fL 79.0 - 98.0 fL [facility] Work Phone: 1) Platelet mean volume (Bld) [Entitic vol] 8.5 fL 7.4 - 10.4 fL [facility] Work Phone: 1) Platelets (Bld) [#/Vol] 326 10*3/uL 140 - 440 10*3/uL [facility] Work Phone: 1) RBC (Bld) [#/Vol] 4.30 10*6/uL 3.80 - 5.2 0 10*6/uL [facility] Work Phone: [phone] WBC (Bld) [#/Vol] 14.6 10*3/uL High 3.6 - 10.7 10*3/uL [facility] Work Phone: [phone] Test Performed by [facility], [address] [place] [address] [facility] Work Phone: [phone] COVID-19on 02-03-2021 SARS-CoV-2 Not Detected. Not Detected [facility] Work Phone: Comment on above: Not Detected. Expected Result: Not Detected _ Real-time, RT-PCR performed on the [employer] by the [facility] Negative results do not preclude SARS-CoV-2 infection and should not be used as the sole basis for treatment or other patient management decisions. This assay was developed and its performance characteristics determined by the [facility]. The U. S. Food and Drug Administration has not approved or cleared this test; however, FDA clearance or approval is not currently required for clinical use. Test Performed by [facility], [address] [place] [id number] Complete Urinalysison 2020 Appearance (U) Clear Normal Clear [facility] Comment on above: Result Comment: . Performed By: #### L RC #### [address] [address] #### TSGL #### [facility] Bilirubin,Urine Negative Normal Negative [facility] Comment on above: Result Comment: . Performed By: #### L RC #### [address] [address] #### TSGL #### [facility] Color (U) Yellow Normal Lt. Yellow [facility] Comment on above: Result Comment: . Performed By: #### L RC #### [address] [address] #### TSGL #### [facility] Glucose Ql (U) Normal Normal Normal (<70) [facility] Comment on above: Result Comment: . Performed By: #### L RC #### [address] [address] #### TSGL #### [employer] [facility] Ketone,Urine Negative Normal Negative [facility] Comment on above: Result Comment: . Performed By: #### L RC #### [address] [address] #### TSGL #### [employer] [facility] Leukocytes,Urine 250 Salome/uL Abnormal Negative [facility] Comment on above: Result Comment: . Performed By: #### L RC #### [address] [address] #### TSGL #### [facility] Nitrites,Urine Negative Normal Negative [facility] Comment on above: Result Comment: . Performed By: #### L RC #### [address] [address] #### TSGL #### [facility] Occult Blood,Urine Negative Normal Negative [facility] Comment on above: Result Comment: . Performed By: #### L RC #### [address] [address] #### TSGL #### [facility] pH,Urine 5.5 Normal 5.0-8.0 [facility] Comment on above: Result Comment: . Performed By: #### L RC #### [address] [address] #### TSGL #### [facility] Specific [place],Urine 1.025 Normal 1.005 - 1.030 [facility] Comment on above: Result Comment: . Performed By: #### L RC #### [address] [address] #### TSGL #### [facility] Total Protein,Urine Negative Normal Negative [facility] Comment on above: Result Comment: . Performed By: #### L RC #### [address] [address] #### TSGL #### [facility] Urobilinogen,Urine Normal Normal Normal (0-1) [facility] Comment on above: Result Comment: . Performed By: #### L RC #### [address] [address] #### TSGL #### [facility] Bacteria Few Abnormal Negative [facility] Comment on above: Result Comment: . Performed By: #### L RC #### [address] [address] #### TSGL #### [facility] Mucous Threads Few Normal Negative [facility] Comment on above: Result Comment: . Performed By: #### L RC #### [address] [address] #### TSGL #### [facility] RBC, Urine 0 - 2 Normal 0-2 [facility] Comment on above: Result Comment: . Performed By: #### L RC #### [facility] [address] [place] [address] #### TSGL #### [facility] Epithelial 0 - 2 Normal 3-5 [employer] Comment on above: Result Comment: . Performed By: #### L RC #### [facility] [address] [place] [address] #### TSGL #### [employer] [facility] WBC, Urine 11 - 25 Abnormal 0-5 [employer] Comment on above: Result Comment: . Performed By: #### L RC #### [address] [address] #### TSGL #### [employer] [facility] ECHO Complete 2D W Doppler W Coloron 02-03-2021 TRANSTHORACIC ECHOCARDIOGRAM PATIENT: Danii Wolfe STUDY DATE: 02/03/2021 : 1945 AGE: 75 HT/WT: 165.1 cm (65 102.1 kg (224.5 in) lb) GENDER: F BP: 157 / 82 LOCATION: [facility] PATIENT Inpatient main STATUS: *ORDERING PHYSICIAN: * Koffi Bates *READING PHYSICIAN: * Chastity Borden MD *MECHANICAL MANUFACTURING TECHNICIAN: * Shana Riley -- INDICATIONS: Assess prior to CABG surgery. -- CONCLUSIONS SUMMARY: 1. Left ventricle: The cavity size is normal. Wall thickness is normal. Systolic function is normal by the biplane method of disks. The estimated ejection fraction is 64%. There are no regional wall motion abnormalities. Although strain assessment was abnormal in the basal and mid lateral willoughby, no clear evidence for hypokinesis of the region. Left ventricular diastolic function parameters are normal for the patient's age. E/e' average: 8.7 2. No significant valve disease. -- STUDY DATA: Complete transthoracic echocardiogram. Procedure: Image quality was good. M-mode, complete 2D, strain rate, complete spectral Doppler, and color flow Doppler images were acquired and archived for permanent storage and are available for subsequent review. Study status: Routine. Patient status: Inpatient. ECG RHYTHM: NSR -- FINDINGS LEFT VENTRICLE: Average LV global longitudinal strain is -21. The cavity size is normal. Wall thickness is normal. Systolic function is normal by the biplane method of disks. The estimated ejection fraction is 64%. There are no regional wall motion abnormalities. Although strain assessment was abnormal in the basal and mid lateral willoughby, no clear evidence for hypokinesis of the region. Left ventricular diastolic function parameters are normal for the patient's age. E/e' average: 8.7 RIGHT VENTRICLE: The cavity size is normal. Systolic function is normal. Right ventricular systolic pressure is mildly increased. RVSP = 43 mm Hg assuming RAP = 3 mm Hg, VENTRICULAR SEPTUM: There is no evidence of a ventricular septal defect. LEFT ATRIUM: The atrium is normal in size. LEYLA = 31 ml/m2. RIGHT ATRIUM: The atrium is normal in size. ATRIAL SEPTUM: Color Doppler shows no shunt. MITRAL VALVE: Moderately calcified annulus. Doppler: There is mild, 1+ regurgitation. The valve area (LVOT continuity) is 2.1 cm^2. The mean diastolic gradient is 1 mm Hg. The peak diastolic gradient is 5 mm Hg. AORTIC VALVE: Structurally normal valve. Trileaflet. Doppler: There is no regurgitation. The peak systolic gradient is 11 mm Hg. The peak systolic velocity is 1.7 m/sec. TRICUSPID VALVE: Structurally normal valve. Doppler: There is mild, 1+ regurgitation. PULMONIC VALVE: Doppler: There is mild, 1+ regurgitation. AORTA: The aorta is normal. PULMONARY ARTERY: Main pulmonary artery: Normal. PERICARDIUM: There is no pericardial effusion. SYSTEMIC VEINS: Inferior vena cava: The vessel is normal. The IVC collapses by greater than 50% with inspiration. -- Measurements Value Reference Aortic root ID 3.3 cm <4.3 Aortic root ID, STJ, ED 3.1 cm 2.0 - 3.2 Aortic root ID/bsa, STJ, ED 1.4 cm/m^2 1.1 - 1.9 Value Reference Ascending aorta ID, A-P, S 3.6 cm Ascending aorta ID/bsa, A-P, S 1.6 cm/m^2 Left ventricle Value Reference GLS, 2D 20.20 % LV ID, ED (H) 5.4 cm 3.8 - 5.2 LV ID, ES 3.2 cm 2.2 - 3.5 LV ID/bsa, ED 2.4 cm/m^2 2.3 - 3.1 LV ID/bsa, ES 1.5 cm/m^2 1.3 - 2.1 LV PW thickness, ED 0.9 cm 0.6 - 0.9 LV PW/LV ID ratio, ED 0.17 LV wall mass (H) 172 g 66 - 150 LV wall mass/bsa 78 g/m^2 44 - 88 Stroke volume/bsa, 1-p A2C 40.6 ml/m^2 LV end-diastolic volume, 1-p A4C 115 ml 48 - 140 LV end-systolic volume, 1-p A4C 43 ml 12 - 60 LV end-diastolic volume, 2-p (H) 131 ml 46 - 106 LV end-systolic volume, 2-p (H) 47 ml 14 - 42 LV ejection fraction, 2-p 64 % 54 - 74 LV E/e', lateral 7.1 LV E/e', medial 11 LV E/e', average 8.7 Ventricular septum Value Reference IVS thickness, ED 0.8 cm 0.6 - 0.9 LVOT Value Reference LVOT ID, A-P 1.9 cm LVOT mean velocity, S 0.6 m/sec LVOT peak gradient, S 6 mm Hg Stroke volume (SV), LVOT DP 61 ml Stroke index (SV/bsa), LVOT DP 28 ml/m^2 Aortic valve Value Reference Aortic valve peak velocity, S 1.7 m/sec Aortic peak gradient, S 11 mm Hg Left atrium Value Reference LA volume/bsa, ES, 2-p 29 ml/m^2 16 - 34 Mitral valve Value Reference Mitral E-wave peak velocity 0.7 m/sec Mitral A-wave peak velocity 0.6 m/sec Mitral deceleration time 211 ms Mitral mean gradient, D 1 mm Hg Mitral peak gradient, D 5 mm Hg Mitral E/A ratio, peak 1.1 Mitral valve area, LVOT continuity 2.1 cm^2 Tricuspid valve Value Reference Tricuspid regurg peak velocity (H) 3.2 m/sec <=2.8 Tricuspid peak RV-RA gradient 40 mm Hg Right atrium Value Reference RA area, ES, A4C (H) 21 cm^2 10 - 18 Systemic veins Value Reference Estimated RAP 3 mm Hg Right ventricle Value Reference TAPSE, 2D 2.5 cm 1.7 - 3.1 RV pressure, S, DP 43 mm Hg RV s', lateral (H) 13.6 cm/sec 6.0 - 13.4 Legend: (L) and (H) temi values outside specified reference range. 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 -- CONCLUSIONS SUMMARY: 1. Left ventricle: The cavity size is normal. Wall thickness is normal. Systolic function is normal by the biplane method of disks. The estimated ejection fraction is 64%. There are no regional wall motion abnormalities. Although strain assessment was abnormal in the basal and mid lateral willoughby, no clear evidence for hypokinesis of the region. Left ventricular diastolic function parameters are normal for the patient's age. E/e' average: 8.7 2. No significant valve disease. -- STUDY DATA: Complete transthoracic echocardiogram. Procedure: Image quality was good. M-mode, complete 2D, strain rate, complete spectral Doppler, and color flow Doppler images were acquired and archived for permanent storage and are available for subsequent review. Study status: Routine. Patient status: Inpatient. ECG RHYTHM: NSR -- FINDINGS LEFT VENTRICLE: Average LV global longitudinal strain is -21. The cavity size is normal. Wall thickness is normal. Systolic function is normal by the biplane method of disks. The estimated ejection fraction is 64%. There are no regional wall motion abnormalities. Although strain assessment was abnormal in the basal and mid lateral willough[place], no clear evidence for hypokinesis of the region. Left ventricular diastolic function parameters are normal for the patient's age. E/e' average: 8.7 RIGHT VENTRICLE: The cavity size is normal. Systolic function is normal. Right ventricular systolic pressure is mildly increased. RVSP = 43 mm Hg assuming RAP = 3 mm Hg, VENTRICULAR SEPTUM: There is no evidence of a ventricular septal defect. LEFT ATRIUM: The atrium is normal in size. LEYLA = 31 ml/m2. RIGHT ATRIUM: The atrium is normal in size. ATRIAL SEPTUM: Color Doppler shows no shunt. MITRAL VALVE: Moderately calcified annulus. Doppler: There is mild, 1+ regurgitation. The valve area (LVOT continuity) is 2.1 cm^2. The mean diastolic gradient is 1 mm Hg. The peak diastolic gradient is 5 mm Hg. AORTIC VALVE: Structurally normal valve. Trileaflet. Doppler: There is no regurgitation. The peak systolic gradient is 11 mm Hg. The peak systolic velocity is 1.7 m/sec. TRICUSPID VALVE: Structurally normal valve. Doppler: There is mild, 1+ regurgitation. PULMONIC VALVE: Doppler: There is mild, 1+ regurgitation. AORTA: The aorta is normal. PULMONARY ARTERY: Main pulmonary artery: Normal. PERICARDIUM: There is no pericardial effusion. SYSTEMIC VEINS: Inferior vena cava: The vessel is normal. The IVC collapses by greater than 50% with inspiration. -- Measurements Value Reference Aortic root ID 3.3 cm <4.3 Aortic root ID, STJ, ED 3.1 cm 2.0 - 3.2 Aortic root ID/bsa, STJ, ED 1.4 cm/m^2 1.1 - 1.9 Value Reference Ascending aorta ID, A-P, S 3.6 cm Ascending aorta ID/bsa, A-P, S 1.6 cm/m^2 Left ventricle Value Reference GLS, 2D 20.20 % LV ID, ED (H) 5.4 cm 3.8 - 5.2 LV ID, ES 3.2 cm 2.2 - 3.5 LV ID/bsa, ED 2.4 cm/m^2 2.3 - 3.1 LV ID/bsa, ES 1.5 cm/m^2 1.3 - 2.1 LV PW thickness, ED 0.9 cm 0.6 - 0.9 LV PW/LV ID ratio, ED 0.17 LV wall mass (H) 172 g 66 - 150 LV wall mass/bsa 78 g/m^2 44 - 88 Stroke volume/bsa, 1-p A2C 40.6 ml/m^2 LV end-diastolic volume, 1-p A4C 115 ml 48 - 140 LV end-systolic volume, 1-p A4C 43 ml 12 - 60 LV end-diastolic volume, 2-p (H) 131 ml 46 - 106 LV end-systolic volume, 2-p (H) 47 ml 14 - 42 LV ejection fraction, 2-p 64 % 54 - 74 LV E/e', lateral 7.1 LV E/e', medial 11 LV E/e', average 8.7 Ventricular septum Value Reference IVS thickness, ED 0.8 cm 0.6 - 0.9 LVOT Value Reference LVOT ID, A-P 1.9 cm LVOT mean velocity, S 0.6 m/sec LVOT peak gradient, S 6 mm Hg Stroke volume (SV), LVOT DP 61 ml Stroke index (SV/bsa), LVOT DP 28 ml/m^2 Aortic valve Value Reference Aortic valve peak velocity, S 1.7 m/sec Aortic peak gradient, S 11 mm Hg Left atrium Value Reference LA volume/bsa, ES, 2-p 29 ml/m^2 16 - 34 Mitral valve Value Reference Mitral E-wave peak velocity 0.7 m/sec Mitral A-wave peak velocity 0.6 m/sec Mitral deceleration time 211 ms Mitral mean gradient, D 1 mm Hg Mitral peak gradient, D 5 mm Hg Mitral E/A ratio, peak 1.1 Mitral valve area, LVOT continuity 2.1 cm^2 Tricuspid valve Value Reference Tricuspid regurg peak velocity (H) 3.2 m/sec <=2.8 Tricuspid peak RV-RA gradient 40 mm Hg Right atrium Value Reference RA area, ES, A4C (H) 21 cm^2 10 - 18 Systemic veins Value Reference Estimated RAP 3 mm Hg Right ventricle Value Reference TAPSE, 2D 2.5 cm 1.7 - 3.1 RV pressure, S, DP 43 mm Hg RV s', lateral (H) 13.6 cm/sec 6.0 - 13.4 Legend: (L) and (H) temi values outside specified reference range. Electronically signed by Chastity Borden MD 02/03/2021 16:32 Prior Signatures: [employer] Phone: Echo Complete w/wo Contrasto n 02-03-2021 Echo Complete w/wo Contrast Patient Name: DANII WOLFE Ultrasound ACCESSION EXAM DATE/TIME PROCEDURE ORDERING PROVIDER [phone] 02/03/2021 15:37 EST Echo Complete w/wo MEETA BATES JAN C Contrast Reason For Exam (Echo Complete w/wo Contrast) assess prior to CABG surgery Report TRANSTHORACIC ECHOCARDIOGRAM PATIENT: Danii Wolfe STUDY DATE: 02/03/2021 : 1945 AGE: 75 HT/WT: 165.1 cm (65 102.1 kg (224.5 in) lb) GENDER: F BP: 157 / 82 LOCATION: [facility] PATIENT Inpatient main STATUS: *ORDERING PHYSICIAN: * Koffi Bates. *READING PHYSICIAN: * Chastity Borden MD *MECHANICAL MANUFACTURING TECHNICIAN: * Shana Riley -- INDICATIONS: Assess prior to CABG surgery. -- CONCLUSIONS SUMMARY: 1. Left ventricle: The cavity size is normal. Wall thickness is normal. Systolic function is normal by the biplane method of disks. The estimated ejection fraction is 64%. There are no regional wall motion abnormalities. Although strain assessment was abnormal in the basal and mid lateral willough[place], no clear evidence for hypokinesis of the region. Left ventricular diastolic function parameters are normal for the patient's age. E/e' average: 8.7 2. No significant valve disease. -- STUDY DATA: Complete transthoracic echocardiogram. Procedure: Image quality was good. M-mode, complete 2D, strain rate, complete spectral Doppler, and color flow Doppler images were acquired and archived for permanent storage and are available for subsequent review. Study status: Routine. Patient status: Inpatient. ECG RHYTHM: NSR -- FINDINGS LEFT VENTRICLE: Average LV global longitudinal strain is -21. The cavity size is normal. Wall thickness is normal. Systolic function is normal by the biplane method of disks. The estimated ejection fraction is 64%. There are no regional wall motion abnormalities. Although strain assessment was abnormal in the basal and mid lateral willoughby, no Ultrasound Report clear evidence for hypokinesis of the region. Left ventricular diastolic function parameters are normal for the patient's age. E/e' average: 8.7 RIGHT VENTRICLE: The cavity size is normal. Systolic function is normal. Right ventricular systolic pressure is mildly increased. RVSP = 43 mm Hg assuming RAP = 3 mm Hg, VENTRICULAR SEPTUM: There is no evidence of a ventricular septal defect. LEFT ATRIUM: The atrium is normal in size. LEYLA = 31 ml/m2. RIGHT ATRIUM: The atrium is normal in size. ATRIAL SEPTUM: Color Doppler shows no shunt. MITRAL VALVE: Moderately calcified annulus. Doppler: There is mild, 1+ regurgitation. The valve area (LVOT continuity) is 2.1 cm^2. The mean diastolic gradient is 1 mm Hg. The peak diastolic gradient is 5 mm Hg. AORTIC VALVE: Structurally normal valve. Trileaflet. Doppler: There is no regurgitation. The peak systolic gradient is 11 mm Hg. The peak systolic velocity is 1.7 m/sec. TRICUSPID VALVE: Structurally normal valve. Doppler: There is mild, 1+ regurgitation. PULMONIC VALVE: Doppler: There is mild, 1+ regurgitation. AORTA: The aorta is normal. PULMONARY ARTERY: Main pulmonary artery: Normal. PERICARDIUM: There is no pericardial effusion. SYSTEMIC VEINS: Inferior vena cava: The vessel is normal. The IVC collapses by greater than 50% with inspiration. -- Measurements Value Reference Aortic root ID 3.3 cm <4.3 Aortic root ID, STJ, ED 3.1 cm 2.0 - 3.2 Aortic root ID/bsa, STJ, ED 1.4 cm/m^2 1.1 - 1.9 Value Reference Ascending aorta ID, A-P, S 3.6 cm Ascending aorta ID/bsa, A-P, S 1.6 cm/m^2 Left ventricle Value Reference GLS, 2D 20.20 % LV ID, ED (H) 5.4 cm 3.8 - 5.2 LV ID, ES 3.2 cm 2.2 - 3.5 LV ID/bsa, ED 2.4 cm/m^2 2.3 - 3.1 LV ID/bsa, ES 1.5 cm/m^2 1.3 - 2.1 LV PW thickness, ED 0.9 cm 0.6 - 0.9 LV PW/LV ID ratio, ED 0.17 LV wall mass (H) 172 g 66 - 150 LV wall mass/bsa 78 g/m^2 44 - 88 Stroke volume/bsa, 1-p A2C 40.6 ml/m^2 LV end-diastolic volume, 1-p A4C 115 ml 48 - 140 LV end-systolic volume, 1-p A4C 43 ml 12 - 60 LV end-diastolic volume, 2-p (H) 131 ml 46 - 106 LV end-systolic volume, 2-p (H) 47 ml 14 - 42 LV ejection fraction, 2-p 64 % 54 - 74 LV E/e', lateral 7.1 LV E/e', medial 11 LV E/e', average 8.7 Ventricular septum Value Reference IVS thickness, ED 0.8 cm 0.6 - 0.9 Ultrasound Report LVOT Value Reference LVOT ID, A-P 1.9 cm LVOT mean velocity, S 0.6 m/sec LVOT peak gradient, S 6 mm Hg ------ (more content not included)... [facility]Bedside[facility] 02-03-2021 Glucose [Mass/Vol] 239 mg/dL High 70-100 [facility] [employer] Comment on above: Result Comment: Test performed by glucose meter. Results may be 10%-15% lower than serum/plasma values. (CLIA ID [id number]) Performed By: #### B GLU #### [employer] [address] [place] [address] Glucose [Mass/Vol] 201 mg/dL High 70-100 [facility] Comment on above: Result Comment: Test performed by glucose meter. Results may be 10%-15% lower than serum/plasma values. (CLIA ID [id number]) Performed By: #### B GLU #### [address] [address] Glucose [Mass/Vol] 140 mg/dL High 70-100 [facility] Comment on above: Result Comment: Test performed by glucose meter. Results may be 10%-15% lower than serum/plasma values. (CLIA ID [id number]) Performed By: #### B GLU #### [facility] [address] [place] [id number] Glucose [Mass/Vol] 214 mg/dL High 70-100 [facility] Comment on above: Result Comment: Test performed by glucose meter. Results may be 10%-15% lower than serum/plasma values. (CLIA ID [id number]) Performed By: #### B GLU #### [address] [address] Hemogramon 02-03-2021 Erythrocyte distribution width (RBC) [Ratio] 13.7 % Normal 11.5-14.5 [facility] Comment on above: Performed By: #### L RC #### [place] [address] #### TSGL #### [facility] Hematocrit (Bld) [Volume fraction] 37.7 % Normal 35.0-47.0 [facility] Comment on above: Performed By: #### L RC #### [address] [address] #### TSGL #### [facility] Hemoglobin (Bld) [Mass/Vol] 12.4 g/dL Normal 11.7-16.0 [facility] Comment on above: Performed By: #### L RC #### [address] [address] #### TSGL #### [facility] MCH (RBC) [Entitic mass] 28.9 pg Normal 26.0-34.0 [facility] Comment on above: Performed By: #### L RC #### [address] [address] #### TSGL #### [facility] MCHC 33.0 % Normal 32.0-36.0 [facility] Comment on above: Performed By: #### L RC #### [address] [address] #### TSGL #### [facility] MCV (RBC) [Entitic vol] 87.6 fL Normal 79.0-98.0 [facility] Comment on above: Performed By: #### L RC #### [address] [address] #### TSGL #### [facility] Platelet mean volume (Bld) [Entitic vol] 8.5 fL Normal 7.4-10.4 [facility] Comment on above: Performed By: #### L RC #### [address] [address] #### TSGL #### [facility] Platelets (Bld) [#/Vol] 326 10*3/uL Normal 140-440 [facility] Comment on above: Performed By: #### L RC #### [address] [address] #### TSGL #### [facility] RBC (Bld) [#/Vol] 4.30 10*6/uL Normal 3.80-5.20 [facility] Comment on above: Performed By: #### L RC #### [address] [address] #### TSGL #### [facility] WBC (Bld) [#/Vol] 14.6 10*3/uL High 3.6-10.7 [facility] Comment on above: Performed By: #### L RC #### [address] [address] #### TSGL #### [facility] MRSA by PCRon 02-03-2021 Staph Aureus Sc No S. aureus detecte d. Negative nasal MRSA PCR has a high negative predictive value for MRSA pneumonia. Consider stopping vancomycin if no other clinical indication. Contact Antimicrobial Stewardship for further recommendations. The analytical performance characteristics of this assay have been determined by [employer] in accordance with CLIA regulations. The modifications have not been cleared or approved by the U. S. Food and Drug Administration; however, the FDA has determined that such clearance or approval is not necessary. [employer] Work Phone: Test Performed by [employer], [facility] [place] [address] [facility] Work Phone: [phone] POCT Glucoseon 02-03-2021 Glucose [Mass/Vol] 239 mg/dL High 70 - 100 mg/dL [facility] Work Phone: [phone] Comment on above: Test performed by gl ucose meter. Results may be 10%-15% lower than serum/plasma values. (CLIA ID [id number]) Interpretation and review of laboratory results Abnormal [employer] Work Phone: [phone] Test Performed by [employer], [address] [place] [address] [facility] Work Phone: [phone] Glucose [Mass/Vol] 201 mg/dL High 70 - 100 mg/dL [facility] Work Phone: [phone] Comment on above: Test performed by gl ucose meter. Results may be 10%-15% lower than serum/plasma values. (CLIA ID [id number]) Interpretation and review of laboratory results Abnormal [employer] Work Phone: [phone] Test Performed by [employer], [facility] [place] [address] [facility] Work Phone: [phone] Glucose [Mass/Vol] 140 mg/dL High 70 - 100 mg/dL [facility] Work Phone: [phone] Comment on above: Test performed by gl ucose meter. Results may be 10%-15% lower than serum/plasma values. (CLIA ID [id number]) Interpretation and review of laboratory results Abnormal [facility] Work Phone: [phone] Test Performed by [employer], [facility] [place] [address] [facility] Work Phone: [phone] Glucose [Mass/Vol] 214 mg/dL High 70 - 100 mg/dL [facility] Work Phone: Comment on above: Test performed by gl ucose meter. Results may be 10%-15% lower than serum/plasma values. (CLIA ID [id number]) Interpretation and review of laboratory results Abnormal [facility] Work Phone: Test Performed by [facility], [address] [place] [address] [facility] Work Phone: [id number] 02-03-2021 SARS-CoV-2 (COVID-19) RNA EVERETT+probe Ql (Unsp spec) SARS-CoV-2 --> Status: F Not Detected. Expected Result: Not Detected _ Real-time, RT-PCR performed on the [facility] [facility] by the [facility] Negative results do not preclude SARS-CoV-2 infection and should not be used as the sole basis for treatment or other patient management decisions. This assay was developed and its performance characteristics determined by the [facility]. The U. S. Food and Drug Administration has not approved or cleared this test; however, FDA clearance or approval is not currently required for clinical use. Expected Result: Not Detected _ Real-time, RT-PCR performed on the [employer] [facility] by the [facility] Negative results do not preclude SARS-CoV-2 infection and should not be used as the sole basis for treatment or other patient management decisions. This assay was developed and its performance characteristics determined by the [facility]. The U. S. Food and Drug Administration has not approved or cleared this test; however, FDA clearance or approval is not currently required for clinical use. Normal [facility] Comment on above: Performed By: #### C OVID #### [address] [address] Staph Aureus Complete Nasalo n 02-03-2021 Staph Aureus Complete Nasal Staph Screen --> Status: F No S. aureus detected. Negative nasal MRSA PCR has a high negative predictive value for MRSA pneumonia. Consider stopping vancomycin if no other clinical indication. Contact Antimicrobial Stewardship for further recommendations. The analytical performance characteristics of this assay have [facility] in accordance with CLIA regulations. The modifications have not been cleared or approved by the U. S. Food and Drug Administration; however, the FDA has determined that such clearance or approval is not necessary. Negative nasal MRSA PCR has a high negative predictive value for MRSA pneumonia. Consider stopping vancomycin if no other clinical indication. Contact Antimicrobial Stewardship for further recommendations. The analytical performance characteristics of this assay have been determined by [employer] [facility] in accordance with CLIA regulations. The modifications have not been cleared or approved by the U. S. Food and Drug Administration; however, the FDA has determined that such clearance or approval is not necessary. Normal [facility] Comment on above: Performed By: #### B GLU #### [facility] [address] [place] [address] Urinalysison 02-03-2021 Appearance (U) Clear Clear NA [employer] Work Phone: [phone] Comment on above: . Bacteria, UA Few Abnormal Negative /[HPF] [employer] Work Phone: [phone] Comment on above: . Bilirubin Urine Negative Negative mg/dL [employer] Work Phone: [phone] Comment on above: . Color (U) Yellow Lt. Yellow NA [employer] Work Phone: [phone] Comment on above: . Glucose, Ur Normal Normal (<70) mg/dL [employer] Work Phone: [phone] Comment on above: . Interpretation and review of laboratory results Abnormal [employer] Work Phone: [phone] Ketones Ql (U) Negative Negative mg/dL [employer] Work Phone: [phone] Comment on above: . LEUKOCYTES, UA 250 Abnormal Negative Salome/uL [facility] Work Phone: [phone] Comment on above: . Mucous Threads Few Negative /[LPF] [facility] Work Phone: [phone] Comment on above: . Nitrite, Urine Negative Negative NA [facility] Work Phone: [phone] Comment on above: . Occult Blood,Urine Negative Negative mg/dL [facility] Work Phone: [phone]- Comment on above: . pH (U) 5.5 [pH] [facility] Work Phone: [phone] Comment on above: . Protein (U) [Mass/Vol] Negative Negative mg/dL [facility] Work Phone: [phone]- Comment on above: . RBC (U) [#/Vol] 0-2 0 - 2 /[HPF] [facility] Work Phone: Comment on above: . Specific [place], Urine 1.025 [facility] Work Phone: [phone] Comment on above: . Squam Epithel, UA 0-2 3 - 5 /[HPF] [facility] Work Phone: Comment on above: . Urobilinogen, Urine Normal Normal ( 0-1) mg/dL [facility] Work Phone: Comment on above: . WBC, UA 11-25 Abnormal 0 - 5 /[HPF] [facility] Work Phone: Comment on above: . Test Performed by [facility], [address] [place] [id number] [facility] Work Phone: [phone] Glucose,Bedsideon 02-02-2021 Glucose [Mass/Vol] 427 mg/dL High 70-100 [facility] Comment on above: Result Comment: Test performed by glucose meter. Results may be 10%-15% lower than serum/plasma values. (CLIA ID [id number]) Performed By: #### L RC #### [address] [address] #### TSGL #### [facility] POCT Glucoseon 02-02-2021 Glucose [Mass/Vol] 427 mg/dL High 70 - 100 mg/dL [facility] Work Phone: Comment on above: Test performed by gl ucose meter. Results may be 10%-15% lower than serum/plasma values. (CLIA ID [id number]) Interpretation and review of laboratory results Abnormal [facility] Work Phone: Test Performed by [facility], [address] [place] [id number] [facility] Work Phone: Lab Report: Basic Metabolic Profile (BMP)on 08-02-2017 Anion gap 10 mmol/L Invalid Interpretation Code 5-15 [facility] Work Phone: Anion gap [Moles/Vol] 10 mmol/L Invalid Interpretation Code 5-15 [facility] Work Phone: [phone] BUN/Creatinine Ratio 18.0 RATIO Invalid Interpretation Code 10-20 [facility] Work Phone: [phone] Calcium [Mass/Vol] 9.1 mg/dL Invalid Interpretation Code 8.5-10.1 [facility] Work Phone: [phone] Chloride [Moles/Vol] 101 mmol/L Invalid Interpretation Code 98-107 [facility] Work Phone: [phone] CO2 28.0 mmol/L Invalid Interpretation Code 21.0-32.0 [facility] Work Phone: [phone] CO2 (BldV) [Partial pressure] 28.0 mmol/L Invalid Interpretation Code 21.0-32.0 [facility] Work Phone: [phone] Creatinine [Mass/Vol] 0.67 mg/dL Invalid Interpretation Code 0.55-1.02 [facility] Work Phone: [phone] eGFR (non-black) 112 mL/min/{1.73_m2} Invalid Interpretation Code >60 [facility] Work Phone: [phone] GFR/1.73 sq M.predicted among non-blacks MDRD (S/P/Bld) [Vol rate/Area] 93 mL/min/{1.73_m2} Invalid Interpretation Code >60 [facility] Work Phone: [phone] Glomerular Filtration rate 112 mL/min Invalid Interpretation Code >60 [facility] Work Phone: [phone] Glucose [Mass/Vol] 158 mg/dL High 70-110 [facility] Work Phone: [phone] Potassium [Moles/Vol] 3.6 mmol/L Invalid Interpretation Code 3.5-5.1 [facility] Work Phone: [phone] Sodium [Moles/Vol] 139 mmol/L Invalid Interpretation Code 136-145 [facility] Work Phone: [phone] Urea nitrogen [Mass/Vol] 12 mg/dL Invalid Interpretation Code 7-18 [facility] Work Phone: [phone] Urea nitrogen/Creatinine [Mass ratio] 18.2649266 mg/mg Invalid Interpretation Code 10-20 [facility] Work Phone: [phone] Lab Report: Lipid Profileon 08-02-2017 Cholesterol [Mass/Vol] 155 mg/dL Invalid Interpretation Code 200 [facility] Work Phone: [phone] Cholesterol in HDL [Mass/Vol] 50 mg/dL Invalid Interpretation Code [facility] Work Phone: [phone] Cholesterol in LDL [Mass/Vol] 68 mg/dL Invalid Interpretation Code 0-130 [facility] Work Phone: [phone] Lipoprotein.pre-beta [Mass/Vol] 37 mg/dL Invalid Interpretation Code 5-40 [facility] Work Phone: [phone] Triglyceride [Mass/Vol] 183 mg/dL Invalid Interpretation Code [facility] Work Phone: [phone] Lab Report: Liver Profileon 08-02-2017 Albumin [Mass/Vol] 3.6 g/dL Invalid Interpretation Code 3.4-5.0 [facility] Work Phone: [phone] Alkaline phosphatase (ALP) 83 U/L Invalid Interpretation Code 45-117 [facility] Work Phone: [phone] ALP (Bld) [Catalytic activity/Vol] 83 U/L Invalid Interpretation Code 45-117 [facility] Work Phone: [phone] ALT [Catalytic activity/Vol] 23 U/L Invalid Interpretation Code 12-78 [facility] Work Phone: [phone] AST [Catalytic activity/Vol] 16 U/L Invalid Interpretation Code 15-37 [facility] Work Phone: [phone] Bilirubin [Mass/Vol] 0.90 mg/dL Invalid Interpretation Code 0.20-1.00 [facility] Work Phone: [phone] Bilirubin.direct [Mass/Vol] 0.15 mg/dL Invalid Interpretation Code 0.00-0.30 [facility] Work Phone: [phone] Globulin 3.7 g/dL High 2.3-3.5 [facility] Work Phone: [phone] Globulin (S) [Mass/Vol] 3.7 g/dL High 2.3-3.5 [facility] Work Phone: [phone] Protein [Mass/Vol] 7.3 g/dL Invalid Interpretation Code 6.4-8.2 [facility] Work Phone: [phone] Lab Report: Microalb:Creat R atio,Random URon 08-02-2017 ACR (microalbumin/creatin ine) ratio 72.1 MG/G CRE High <30 mg/g CRE [facility] Work Phone: [phone] Albumin DL <= 20 mg/L (U) [Mass/Vol] 7.57 mg/dL Invalid Interpretation Code Units converted. See lab report for original value. [facility] Work Phone: [phone] Albumin/Creatinine DL <= 20 mg/L (U) [Ratio] 72.1 MG/G CRE High <30 mg/g CRE [facility] Work Phone: [phone] Creatinine (U) [Mass/Vol] 105.00 mg/dL Invalid Interpretation Code NO RANGE EST. [facility] Work Phone: [phone]) Lab Report: Lipid Profileon 02-01-2017 Cholesterol [Mass/Vol] 163 mg/dL Invalid Interpretation Code 200 [facility] Work Phone: [phone] Cholesterol in HDL [Mass/Vol] 51 mg/dL Invalid Interpretation Code [facility] Work Phone: [phone] Cholesterol in LDL [Mass/Vol] 69 mg/dL Invalid Interpretation Code 0-130 [facility] Work Phone: [phone] Lipoprotein.pre-beta [Mass/Vol] 43 mg/dL High 5-40 [facility] Work Phone: [phone] Triglyceride [Mass/Vol] 213 mg/dL High [facility] Work Phone: [phone] Lab Report: Liver Profileon 02-01-2017 Albumin [Mass/Vol] 3.8 g/dL Invalid Interpretation Code 3.4-5.0 [facility] Work Phone: [phone] ALP (Bld) [Catalytic activity/Vol] 74 U/L Invalid Interpretation Code 45-117 [facility] Work Phone: [phone] ALT [Catalytic activity/Vol] 24 U/L Invalid Interpretation Code 12-78 [facility] Work Phone: [phone] AST [Catalytic activity/Vol] 12 U/L Low 15-37 [facility] Work Phone: [phone] Bilirubin [Mass/Vol] 1.10 mg/dL High 0.20-1.[address] [facility] Work Phone: [phone] Bilirubin.direct [Mass/Vol] 0.14 mg/dL Invalid Interpretation Code 0.00-0.30 [facility] Work Phone: [phone] Globulin (S) [Mass/Vol] 3.7 g/dL High 2.3-3.5 [facility] Work Phone: [phone] Protein [Mass/Vol] 7.5 g/dL Invalid Interpretation Code 6.4-8.2 [facility] Work Phone: [phone] Office Visit: [facility] 12-18-19 17 Dietary management education, guidance, and counseling (procedure) yes Invalid Interpretation Code [facility] Work Phone: [phone] Documentation of current medications (procedure) Done Invalid Interpretation Code [facility] Work Phone: [phone] Clinical Lists 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: 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 Left ventricular Ejection fraction 65 % Invalid Interpretation Code [facility] Work Phone: [phone] Lab Report: Thyroid Stim Hor jarad (TSH)on 08-02-2016 Thyroid stimulating hormone (TSH) 1.70 u[iU]/mL Invalid Interpretation Code 0.358-3.74 [facility] Work Phone: [phone] TSH Qn 1.70 m[IU]/L Invalid Interpretation Code 0.358-3.74 [facility] Work Phone: [phone] Office Visiton 12-13-[address] [facility] Never smoker Invalid Interpretation Code [facility] Work Phone: [phone] Replaced Document: Sky Jenkins CG Observationson 12-13-2015 EKG QRS axis 26 deg Invalid Interpretation Code [facility] Work Phone: [phone] electrocardiogram interpretation Sinus Rhythm WITHIN NORMAL LIMITS Invalid Interpretation Code [facility] Work Phone: [phone] GE use only - for [employer] import when terms are not otherwise specified 402 ms Invalid Interpretation Code [facility] Work Phone: [phone] Heart rate 66 /min Invalid Interpretation Code [facility] Work Phone: [phone] Interpretation Sinus Rhythm WITHIN NORMAL LIMITS Invalid Interpretation Code [facility] Work Phone: [phone] P Griffin 34 deg Invalid Interpretation Code [facility] Work Phone: [phone] P wave axis, electrocardiogram 34 deg Invalid Interpretation Code [facility] Work Phone: [phone] WV Interval 154 ms Invalid Interpretation Code [facility] Work Phone: [phone] WV interval, electrocardiogram 154 ms Invalid Interpretation Code [facility] Work Phone: [phone] QRS axis, electrocardiogram 26 deg Invalid Interpretation Code [facility] Work Phone: [phone] QRS Duration 96 ms Invalid Interpretation Code [facility] Work Phone: [phone] QRS duration, electrocardiogram 96 ms Invalid Interpretation Code [facility] Work Phone: [phone] QT Interval new path ms Invalid Interpretation Code [facility] Work Phone: [phone] QT interval, electrocardiogram new path ms Invalid Interpretation Code [facility] Work Phone: [phone] QTc [place] 402 ms Invalid Interpretation Code [facility] Work Phone: [phone] T Griffin 28 deg Invalid Interpretation Code [facility] Work Phone: [phone] T wave axis, electrocardiogram 28 deg Invalid Interpretation Code [facility] Work Phone: [phone] Clinical Lists Update: 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 11-24-2015 Erythrocytes (RBC) 4.86 10*6/uL Invalid Interpretation Code [facility] Work Phone: [phone] Hematocrit (Bld) [Volume fraction] 42.9 % Invalid Interpretation Code [facility] Work Phone: [phone] Hematocrit (HCT) 42.9 % Invalid Interpretation Code [facility] Work Phone: [phone] Hemoglobin (Bld) [Mass/Vol] 14.2 g/dL Invalid Interpretation Code [facility] Work Phone: [phone] Left ventricular Ejection fraction 65 % Invalid Interpretation Code [facility] Work Phone: [phone] MCH 29.2 pg Invalid Interpretation Code [facility] Work Phone: [phone] MCH (RBC) [Entitic mass] 29.2 pg Invalid Interpretation Code [facility] Work Phone: [phone] MCV 88.3 fL Invalid Interpretation Code [facility] Work Phone: [phone] MCV (RBC) [Entitic vol] 88.3 fL Invalid Interpretation Code [facility] Work Phone: [phone] Platelets 333 10*3/mm3 Invalid Interpretation Code [facility] Work Phone: [phone] Platelets (Bld) [#/Vol] 333 10*3/uL Invalid Interpretation Code [facility] Work Phone: [phone] RBC (Bld) [#/Vol] 4.86 10*6/uL Invalid Interpretation Code [facility] Work Phone: [phone] WBC (Bld) [#/Vol] 10.0 10*3/uL Invalid Interpretation Code [facility] Work Phone: [phone] WBC (Leukocytes) 10.0 10*3/uL Invalid Interpretation Code [facility] Work Phone: [phone] Office Visiton 03-01-2015 cardiac risk group C Invalid Interpretation Code [facility] Work Phone: [phone] General cardiovascular disease 10Y risk [#] [place] N/A Invalid Interpretation Code [facility] Work Phone: [phone] Lab Report: VITDon 2 vitamin D 25-hydroxy, serum 15.6 ng/mL Low 30.0-100.0 [facility] Work Phone: [phone] VITD 15.6 ng/mL Low 30.0-100.0 [facility] Work Phone: [phone] Lab Report: PTon 03-19-2012 INR Coag (PPP) [Relative time] 1.0 {INR} Normal [facility] Work Phone: [phone] prothrombin time, actual/normal, ratio 12.7 SECONDS Normal 11.9-14.4 [facility] Work Phone: PTP 12.7 SECONDS Normal 11.9-14.4 [facility] Work Phone: [phone] Lab Report: PTTon 03-19-2012 activated partial thromboplastin time 24.7 SECONDS Normal 24.1-36.2 [facility] Work Phone: [phone] aPTT 24.7 s Normal 24.1-36.2 [facility] Work Phone: [phone] Lab Report: SEDon 03-19-2012 ESR (Bld) [Velocity] 6 mm/h Normal 0-30 [facility] Work Phone: [phone] Replaced Document: [id number] 03-19-2012 Cobalamin (Vitamin B12) [Mass/Vol] 559 pg/mL Normal 254-1320 [facility] Work Phone: [phone] Replaced Document: CRPon CRP [Mass/Vol] 3.36 mg/L High 0.0-3.0 [facility] Work Phone: [phone] Replaced Document: MGon 02-25 Magnesium [Mass/Vol] 2.0 mg/dL Normal 1.8-2.4 [employer] Work Phone: [phone] Replaced Document: Midmark E CG Observationson 03-11-2012 Pulse (Heart Rate) 403 ms Invalid Interpretation Code [facility] Work Phone: [phone] QT interval/QT interval (corrected for heart rate), electrocardiogram 403 ms Invalid Interpretation Code [facility] Work Phone: [phone] Vital Signs Date Time Vital Sign Value Performing Clinician Veronica mead 02-13-2021 12:00-0400 Pulse (Heart Rate) 81 /min Mairazane Lao [facility] Work Phone: 02-13-2021 12:00-0400 Pulse Oximetry 95 % [facility] Work Phone: 02-13-2021 08:00-0400 Body Temperature 98.29 [degF] Mairazane Lao [facility] Work Phone: 02-13-2021 08:00-0400 BP Diastolic 68 mm[Hg] Mairazane LU Work Phone: 02-13-2021 08:00-0400 BP Systolic 138 mm[Hg] Maira LU Work Phone: 02-13-2021 08:00-0400 Respiratory Rate 20 /min Maira LU Work Phone: 02-13-2021 05:00-0400 BMI (Body Mass Index) 36.04 kg/m2 Maira LU Work Phone: 02-13-2021 05:00-0400 Body weight 98.25 kg Maira LU Work Phone: 02-09-2021 08:42-0400 Height 165.1 cm Maira LU Work Phone: 10-08-2017 13:41-0500 Body height 165.1 cm Yecenia Zaragoza Work Phone: [facility] Work Phone: 10-08-2017 13:41-0500 Body mass index (BMI) [Ratio] 38.69 kg/m2 Yecenia Zaragoza Work Phone: [facility] Work Phone: 10-08-2017 13:41-0500 Body weight 105.46 kg Yecenia Zaragoza Work Phone: [facility] Work Phone: 10-08-2017 13:41-0500 Diastolic blood pressure 70 mm[Hg] Yecenia Zaragoza Work Phone: [facility] Work Phone: 10-08-2017 13:41-0500 Heart rate 68 /min Yecenia Zaragoza Work Phone: [facility] Work Phone: 10-08-2017 13:41-0500 Systolic blood pressure 132 mm[Hg] Yecenia Zaragoza Work Phone: [facility] Work Phone: 12-18-2016 09:18-0500 Body mass index (BMI) [Ratio] 38.59 kg/m2 Ethel Benavides RN [facility] Work Phone: 12-18-2016 09:18-0500 Body surface area Derived from formula 2.11 m2 Ethel Benavides RN [facility] Work Phone: 12-18-2016 09:18-0500 Body weight 105.19 kg Ethel Benavides RN [facility] Work Phone: 12-18-2016 09:18-0500 Diastolic blood pressure 58 mm[Hg] Ethel Benavides RN [facility] Work Phone: 12-18-2016 09:18-0500 Heart rate 66 /min Ethel Benavides RN [facility] Work Phone: 12-18-2016 09:18-0500 Respiratory rate 18 /min Ethel Benavides RN [facility] Work Phone: 12-18-2016 09:18-0500 Systolic blood pressure 120 mm[Hg] Ethel Benavides RN [facility] Work Phone: 12-18-2016 09:18-0500 Weight 105.19 kg Dora Alberts RN [facility] Work Phone: 03-11-2012 16:19-0400 Body height 165.1 cm Ethel Benavides RN [facility] Work Phone: Encounters Encounter Date Encounter Type Care Provider Facility Start: 02-02-2021 End: 02-13-2021 Evaluation and management of inpatient Maira Lao Work Phone: [facility] Comment on above: 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); S/P CABG (coronary artery bypass graft) Start: 09-16-2018 End: 09-16-2018 Patient encounter procedure TRESSA GRAY [facility] Start: 08-12-2018 End: 08-13-2018 Patient encounter procedure YADIRA LOCKHART [facility] Start: 08-12-2018 End: 08-12-2018 Patient encounter procedure TRESSA GRAY [facility] Procedures Date Procedure Procedure Detail Performing Clinician Start: 02-13-2021 Radiologic exam ches t single view Dmitry Begum Work Phone: Start: 02-13-2021 Assay of magnesium Dmitry Begum Work Phone: Start: 02-13-2021 Basic metabolic pane l calcium total Dmitry Begum Work Phone: Start: 02-13-2021 Blood count complete automated Dmitry Begum Work Phone: Start: 02-12-2021 Gluc bld gluc mntr d ev cleared fda spec home use Maira Aziken Work Phone: Start: 02-12-2021 Gluc bld gluc mntr d ev cleared fda spec home use Maira Aziken Work Phone: Start: 02-12-2021 Gluc bld gluc mntr d ev cleared fda spec home use Maira Aziken Work Phone: Start: 02-12-2021 Radiologic exam ches t single view Dmitry Begum Work Phone: Start: 02-12-2021 Assay of magnesium Dmitry Begum Work Phone: Start: 02-12-2021 Basic metabolic pane l calcium total Dmitry Begum Work Phone: Start: 02-12-2021 Blood count complete automated Dmitry Begum Work Phone: Start: 02-11-2021 Gluc bld gluc mntr d ev cleared fda spec home use Maira Aziken Work Phone: Start: 02-11-2021 Gluc bld gluc mntr d ev cleared fda spec home use Maira Aziken Work Phone: Start: 02-11-2021 Gluc bld gluc mntr d ev cleared fda spec home use Maira Aziken Work Phone: Start: 02-11-2021 Gluc bld gluc mntr d ev cleared fda spec home use Maira Aziken Work Phone: Start: 02-11-2021 Potassium serum plas ma/whole blood Maira [facility] Work Phone: Start: 02-11-2021 Gluc bld gluc mntr d ev cleared fda spec home use Maira [facility] Work Phone: Start: 02-11-2021 Radiologic exam ches t single view Dmitry Begum Work Phone: Start: 02-11-2021 Gluc bld gluc mntr d ev cleared fda spec home use Maira [facility] Work Phone: Start: 02-11-2021 End: 02-11-2021 Gluc bld gluc mntr dev cleared fda spec home use Maira Shilo Work Phone: Start: 02-11-2021 Assay of magnesium Dmitry Begum Work Phone: Start: 02-11-2021 Basic metabolic pane l calcium total Dmitry Begum Work Phone: Start: 02-11-2021 Blood count complete automated Dmitry Begum Work Phone: Start: 02-11-2021 End: 02-11-2021 Gluc bld gluc mntr dev cleared fda spec home use Maira Lao Work Phone: Start: 02-10-2021 End: 02-10-2021 Gluc bld gluc mntr dev cleared fda spec home use Maira Calderonn Work Phone: Start: 02-10-2021 Gluc bld gluc mntr d ev cleared fda spec home use Maira [facility] Work Phone: Start: 02-10-2021 End: 02-10-2021 Gluc bld gluc mntr dev cleared fda spec home use Maira [facility] Work Phone: Start: 02-10-2021 End: 02-10-2021 Gluc bld gluc mntr dev cleared fda spec home use Maira Aziken Work Phone: Start: 02-10-2021 Gluc bld gluc mntr d ev cleared fda spec home use Maira [facility] Work Phone: Start: 02-10-2021 Gluc bld gluc mntr d ev cleared fda spec home use Maira Aziken Work Phone: Start: 02-10-2021 End: 02-10-2021 Gluc bld gluc mntr dev cleared fda spec home use Maira Aziken Work Phone: Start: 02-10-2021 End: 02-10-2021 Gluc bld gluc mntr dev cleared fda spec home use Maira Aziken Work Phone: Start: 02-10-2021 Gluc bld gluc mntr d ev cleared fda spec home use Maira Aziken Work Phone: Start: 02-10-2021 Ecg routine ecg w/le ast 12 lds w/i&r Dmitry Begum Work Phone: Start: 02-10-2021 End: 02-10-2021 Gluc bld gluc mntr dev cleared fda spec home use Maira Aziken Work Phone: Start: 02-10-2021 Radiologic exam ches t single view Dmitry Begum Work Phone: Start: 02-10-2021 Gluc bld gluc mntr d ev cleared fda spec home use Maira Aziken Work Phone: Start: 02-10-2021 End: 02-10-2021 Gluc bld gluc mntr dev cleared fda spec home use Maira Aziken Work Phone: Start: 02-10-2021 Assay of magnesium Dmitry Begum Work Phone: Start: 02-10-2021 Basic metabolic pane l calcium total Dmitry Begum Work Phone: Start: 02-10-2021 Blood count complete automated Dmitry Begum Work Phone: Start: 02-09-2021 EXTUBATION Alfie Moses Work Phone: Start: 02-09-2021 Ecg routine ecg w/le ast 12 lds w/i&r Dmitry Begum Work Phone: Start: 02-09-2021 End: 02-10-2021 Gluc bld gluc mntr dev cleared fda spec home use Maira Aziken Work Phone: Start: 02-09-2021 Radiologic exam ches t single view Dmitry Begum Work Phone: Start: 02-09-2021 OPERATIVE REPORT 3m Sca nning Start: 02-09-2021 End: 02-09-2021 Assay of magnesium Maira Aziken Work Phone: Start: 02-09-2021 Assay of phosphorus inorganic Maira Aziken Work Phone: Start: 02-09-2021 End: 02-09-2021 Basic metabolic panel calcium total Maira Aziken Work Phone: Start: 02-09-2021 End: 02-09-2021 Blood count complete automated Maira Aziken Work Phone: Start: 02-09-2021 BLOOD GAS, ARTERIAL Nke m [facility] Work Phone: Start: 02-09-2021 Calcium ionized Maira Az iken Work Phone: Start: 02-09-2021 PROTIME/INR & PTT Maira Aziken Work Phone: Start: 02-09-2021 US Heart Transesophageal Dmitry Begum Work Phone: Start: 02-08-2021 Gluc bld gluc mntr d ev cleared fda spec home use Maira Aziken Work Phone: Start: 02-08-2021 Gluc bld gluc mntr d ev cleared fda spec home use Maira Aziken Work Phone: Start: 02-08-2021 Gluc bld gluc mntr d ev cleared fda spec home use Maira Aziken Work Phone: Start: 02-08-2021 Blood count complete auto&auto difrntl wbc Dmitry Begum Work Phone: Start: 02-08-2021 Blood typing serologic abo Dmitry Begum Work Phone: Start: 02-08-2021 Prothrombin time Dmitry chery Work Phone: Start: 02-08-2021 Thromboplastin time partial plasma/whole blood Dmitry Begum Work Phone: Start: 02-08-2021 Gluc bld gluc mntr d ev cleared fda spec home use Maira Aziken Work Phone: Start: 02-08-2021 Gluc bld gluc mntr d ev cleared fda spec home use Maira Aziken Work Phone: Start: 02-07-2021 Gluc bld gluc mntr d ev cleared fda spec home use Maira Aziken Work Phone: Start: 02-07-2021 Gluc bld gluc mntr d ev cleared fda spec home use Maira Aziken Work Phone: Start: 02-07-2021 Gluc bld gluc mntr d ev cleared fda spec home use Maira Aziken Work Phone: Start: 02-07-2021 Radiologic exam ches t single view Koffi Bates Work Phone: Start: 02-06-2021 Gluc bld gluc mntr d ev cleared fda spec home use Maira Aziken Work Phone: Start: 02-06-2021 Gluc bld gluc mntr d ev cleared fda spec home use Maira Aziken Work Phone: Start: 02-06-2021 Gluc bld gluc mntr d ev cleared fda spec home use Maira Aziken Work Phone: Start: 02-06-2021 Gluc bld gluc mntr d ev cleared fda spec home use Maira Aziken Work Phone: Start: 02-05-2021 Gluc bld gluc mntr d ev cleared fda spec home use Maira Aziken Work Phone: Start: 02-05-2021 Gluc bld gluc mntr d ev cleared fda spec home use Maira Aziken Work Phone: Start: 02-05-2021 Gluc bld gluc mntr d ev cleared fda spec home use Maira Aziken Work Phone: Start: 02-05-2021 Gluc bld gluc mntr d ev cleared fda spec home use Maira Aziken Work Phone: Start: 02-05-2021 Radiologic exam ches t single view [employer] Work Phone: Start: 02-04-2021 Gluc bld gluc mntr d ev cleared fda spec home use Maira Aziken Work Phone: Start: 02-04-2021 Gluc bld gluc mntr d ev cleared fda spec home use Maira [employer] Work Phone: Start: 02-04-2021 BEDSIDE SPIROMETRY [employer] Work Phone: Start: 02-04-2021 Gluc bld gluc mntr d ev cleared fda spec home use Maira [employer] Work Phone: Start: 02-04-2021 Duplex scan extracra nial art compl bi study [employer] Work Phone: Start: 02-04-2021 Gluc bld gluc mntr d ev cleared fda spec home use Mairazane [facility] Work Phone: Start: 02-04-2021 Radiologic exam ches t single view [employer] Work Phone: Start: 02-04-2021 Basic metabolic pane l calcium total [employer] Work Phone: Start: 02-04-2021 Blood count complete automated [employer] Work Phone: Start: 02-04-2021 Hemoglobin glycosylated a1c [employer] Work Phone: Start: 02-03-2021 Gluc bld gluc mntr d ev cleared fda spec home use Maira Aziken Work Phone: Start: 02-03-2021 Gluc bld gluc mntr d ev cleared fda spec home use Maira [employer] Work Phone: Start: 02-03-2021 Echo tthrc r-t 2d w/ wom-mode compl spec&colr d Koffi Comeks Work Phone: Start: 02-03-2021 Urnls dip stick/tabl et rgnt auto w/o microscopy [employer] Work Phone: Start: 02-03-2021 Gluc bld gluc mntr d ev cleared fda spec home use [employer] Work Phone: Start: 02-03-2021 Ecg routine ecg w/le ast 12 lds w/i&r [employer] Work Phone: Start: 02-03-2021 COVID-19 [employer] Work Phone: Start: 02-03-2021 MRSA BY PCR [employer] Work Phone: Start: 02-03-2021 Gluc bld gluc mntr d ev cleared fda spec home use [employer] Work Phone: Start: 02-03-2021 Basic metabolic pane l calcium total [employer] Work Phone: Start: 02-03-2021 Blood count complete automated [employer] Work Phone: Start: 02-02-2021 Gluc bld gluc mntr d ev cleared fda spec home use [employer] Work Phone: Start: 10-08-2017 End: 10-08-2017 Dietary management education, guidance, and counseling Yecenia Zaragoza Work Phone: Start: 10-08-2017 End: 10-08-2017 Documentation of current medications Yecenia Zaragoza Work Phone: Start: 10-08-2017 End: 10-08-2017 Follow Up Appt 6 months Erna Hdez [employer] Work Phone: Start: 10-08-2017 End: 10-08-2017 PFM Erna Hdez [employer] Work Phone: Start: 08-03-2017 End: 08-03-2017 *Hepatic Function Panel Dora rosario PA-C Work Phone: Start: 08-03-2017 End: 08-03-2017 Lipid 1996 panel - Serum or Plasma Dora Delgado PA-C Work Phone: Start: 08-03-2017 End: 08-03-2017 Hepatic function 2000 panel - Serum or Plasma Dora Delgado PA-C Work Phone: Start: 08-03-2017 End: 08-03-2017 Lipid 1996 panel - Serum or Plasma Dora Delgado PA-C Work Phone: Start: 01-31-2017 End: 02-06-2017 *Hepatic Function Panel Dora rosario PA-C Work Phone: Start: 01-31-2017 End: 02-06-2017 Lipid 1996 panel - Serum or Plasma Dora Delgado PA-C Work Phone: Start: 01-31-2017 End: 02-06-2017 Hepatic function 2000 panel - Serum or Plasma Dora Delgado PA-C Work Phone: Start: 01-31-2017 End: 02-06-2017 Lipid 1996 panel - Serum or Plasma Dora Delgado PA-C Work Phone: Start: 12-18-2016 End: 12-18-2016 Follow Up Appt 6 months Dora rosario PA-C Work Phone: Start: 12-18-2016 End: 12-18-2016 PF Dora Delgado PA-C Work Phone: Start: 12-18-2016 End: 12-18-2016 Dietary management education, guidance, and counseling Ethel Benavides RN Start: 12-18-2016 End: 12-18-2016 Documentation of current medications Ethel Benavides RN Start: 12-18-2016 End: 12-18-2016 Follow Up Appt 6 months Dora rosario PA-C Work Phone: Start: 12-18-2016 End: 12-18-2016 PF Dora Delgado PA-C Work Phone: Start: 07-28-2016 End: 08-03-2016 *Hepatic Function Panel Jb Segovia MD Start: 07-28-2016 End: 08-03-2016 Lipid 1996 panel - Serum or Plasma Jb Segovia MD Start: 07-28-2016 End: 08-03-2016 Hepatic function 2000 panel - Serum or Plasma Jb Segovia MD Start: 07-28-2016 End: 08-03-2016 Lipid 1996 panel - Serum or Plasma Jb Segovia MD Start: 06-21-2016 End: 06-21-2016 *BMP Jb Segovia MD Start: 06-21-2016 End: 06-21-2016 Follow Up Appt 6 months Jb Segovia MD Start: 06-21-2016 End: 06-21-2016 MMM Jb Segovia MD Start: 06-21-2016 End: 06-21-2016 Basic metabolic 2000 panel - Serum or Plasma Jb Segovia MD Start: 06-21-2016 End: 06-21-2016 Follow Up Appt 6 months Jb Segovia MD Start: 06-21-2016 End: 06-21-2016 MMM Jb Segovia MD Start: 01-26-2016 End: 01-26-2016 *Hepatic Function Panel Jb Segovia MD Start: 01-26-2016 End: 01-26-2016 Lipid 1996 panel - Serum or Plasma Jb Segovia MD Start: 01-26-2016 End: 01-26-2016 Hepatic function 2000 panel - Serum or Plasma Jb Segovia MD Start: 01-26-2016 End: 01-26-2016 Lipid 1996 panel - Serum or Plasma Jb Segovia MD Start: 12-13-2015 End: 06-21-2016 Ecg routine ecg w/least 12 lds w/i&r Jb Segovia MD Start: 12-13-2015 End: 06-21-2016 Follow Up Appt 6 months Jb Segovia MD Start: 12-13-2015 End: 06-21-2016 MMM Jb Segovia MD Start: 12-13-2015 End: 06-21-2016 Ecg routine ecg w/least 12 lds w/i&r Jb Segovia MD Start: 12-13-2015 End: 06-21-2016 Follow Up Appt 6 months Jb Segovia MD Start: 12-13-2015 End: 06-21-2016 MM Jb Segovia MD Start: 09-20-2015 End: 12-13-2015 Follow Up Appt 6 months Dora rosario PA-C Work Phone: Start: 09-20-2015 End: 12-13-2015 [facility] Dora Delgado PA-C Work Phone: Start: 09-20-2015 End: 12-13-2015 Follow Up Appt 6 months Dora rosario PA-C Work Phone: Start: 09-20-2015 End: 12-13-2015 [facility] Dora Delgado PA-C Work Phone: Start: 07-29-2015 End: 07-29-2015 *Hepatic Function Panel Jb Segovia MD Start: 07-29-2015 End: 07-29-2015 Lipid 1996 panel - Serum or Plasma Jb Segovia MD Start: 07-29-2015 End: 07-29-2015 Hepatic function 2000 panel - Serum or Plasma Jb Segovia MD Start: 07-29-2015 End: 07-29-2015 Lipid 1996 panel - Serum or Plasma Jb Segovia MD Start: 04-29-2015 End: 04-30-2015 Documentation of current medications Jb Segovia MD Start: 04-29-2015 End: 04-29-2015 Follow Up Appt Other Jb Segovia MD Start: 04-29-2015 End: 04-30-2015 Documentation of current medications Jb Segovia MD Start: 04-29-2015 End: 04-29-2015 Follow Up Appt Other Jb Segovia MD Start: 03-01-2015 End: 03-02-2015 Documentation of current medications Jb Segovia MD Start: 03-01-2015 End: 03-01-2015 Ecg routine ecg w/least 12 lds w/i&r Jb Segovia MD Start: 03-01-2015 End: 04-29-2015 Echocardiography Jb Segovia MD Start: 03-01-2015 End: 03-01-2015 Follow Up Appt 6 months Jb Segovia MD Start: 03-01-2015 End: 03-01-2015 MMM Jb Segovia MD Start: 03-01-2015 End: 04-29-2015 Nuclear stress test -Lexiscan Jb Segovia MD Start: 03-01-2015 End: 03-02-2015 Documentation of current medications Jb Segovia MD Start: 03-01-2015 End: 03-01-2015 Ecg routine ecg w/least 12 lds w/i&r Jb Segovia MD Start: 03-01-2015 End: 04-29-2015 Echocardiography Jb Segovia MD Start: 03-01-2015 End: 03-01-2015 Follow Up Appt 6 months Jb Segovia MD Start: 03-01-2015 End: 03-01-2015 MMM Jb Segovia MD Start: 03-01-2015 End: 04-29-2015 Nuclear stress test -Lexiscan Jb Segovia MD Start: 01-25-2015 End: 01-27-2015 *Hepatic Function Panel Jb Segovia MD Start: 01-25-2015 End: 01-27-2015 Lipid 1996 panel - Serum or Plasma Jb Segovia MD Start: 01-25-2015 End: 01-27-2015 Hepatic function 2000 panel - Serum or Plasma Jb Segovia MD Start: 01-25-2015 End: 01-27-2015 Lipid 1996 panel - Serum or Plasma Jb Segovia MD Start: 08-17-2014 End: 08-17-2014 Follow Up Appt 6 months Dora rosario PA-C Work Phone: Start: 08-17-2014 End: 08-17-2014 PF Dora Delgado PA-C Work Phone: Start: 08-17-2014 End: 08-17-2014 Follow Up Appt 6 months Dora rosario PA-C Work Phone: Start: 08-17-2014 End: 08-17-2014 PFM Dora Delgado PA-C Work Phone: Start: 07-20-2014 End: 07-20-2014 *Hepatic Function Panel Jb Segovia MD Start: 07-20-2014 End: 07-20-2014 Lipid 1996 panel - Serum or Plasma Jb Segovia MD Start: 07-20-2014 End: 07-20-2014 Hepatic function 2000 panel - Serum or Plasma Jb Segovia MD Start: 07-20-2014 End: 07-20-2014 Lipid 1996 panel - Serum or Plasma Jb Segovia MD Start: 06-24-2014 End: 07-20-2014 *BMP Jb Segovia MD Start: 06-24-2014 End: 07-20-2014 Basic metabolic 2000 panel - Serum or Plasma Jb Segovia MD Start: 04-26-2014 End: 05-22-2014 *Hepatic Function Panel Jb Segovia MD Start: 04-26-2014 End: 05-22-2014 Lipid 1996 panel - Serum or Plasma Jb Segovia MD Start: 04-26-2014 End: 05-22-2014 Hepatic function 2000 panel - Serum or Plasma Jb Segovia MD Start: 04-26-2014 End: 05-22-2014 Lipid 1996 panel - Serum or Plasma Jb Segovia MD Start: 02-09-2014 End: 05-22-2014 *BMP Jb Segovia MD Start: 02-09-2014 End: 05-22-2014 Basic metabolic 2000 panel - Serum or Plasma Jb Segovia MD Start: 08-26-2013 End: 11-17-2013 *Hepatic Function Panel Dora rosario PA-C Work Phone: Start: 08-26-2013 End: 11-17-2013 Lipid 1996 panel - Serum or Plasma Dora Delgado PA-C Work Phone: Start: 08-26-2013 End: 11-17-2013 Hepatic function 2000 panel - Serum or Plasma Dora Delgado PA-C Work Phone: Start: 08-26-2013 End: 11-17-2013 Lipid 1996 panel - Serum or Plasma Dora Delgado PA-C Work Phone: Start: 07-07-2013 End: 11-17-2013 *Hepatic Function Panel Jb Segovia MD Start: 07-07-2013 End: 11-17-2013 Lipid 1996 panel - Serum or Plasma Jb Segovia MD Start: 07-07-2013 End: 11-17-2013 Hepatic function 2000 panel - Serum or Plasma Jb Segovia MD Start: 07-07-2013 End: 11-17-2013 Lipid 1996 panel - Serum or Plasma Jb Segovia MD Start: 02-27-2013 End: 02-27-2013 *Hepatic Function Panel Bernard Alex MD Start: 02-27-2013 End: 02-27-2013 Lipid 1996 panel - Serum or Plasma Bernard Alex MD Start: 02-27-2013 End: 02-27-2013 Hepatic function 2000 panel - Serum or Plasma Bernard Alex MD Start: 02-27-2013 End: 02-27-2013 Lipid 1996 panel - Serum or Plasma Bernard Alex MD Start: 09-20-2012 End: 09-20-2012 Follow Up Appt 6 months Bernard Alex MD Start: 09-20-2012 End: 09-25-2012 Nuclear stress test -adenosine Bernard Alex MD Start: 09-20-2012 End: 09-20-2012 Follow Up Appt 6 months Bernard Alex MD Start: 09-20-2012 End: 09-25-2012 Lipid 1996 panel Bernard Alex MD Start: 08-28-2012 End: 03-05-2013 *Hepatic Function Panel Bernard Alex MD Start: 08-28-2012 End: 03-05-2013 Lipid 1996 panel - Serum or Plasma Bernard Alex MD Start: 08-28-2012 End: 03-05-2013 Hepatic function 2000 panel - Serum or Plasma Bernard Alex MD Start: 08-28-2012 End: 03-05-2013 Lipid 1996 panel - Serum or Plasma Bernard Alex MD Start: 05-20-2012 End: 05-20-2012 Follow Up Appt 4 months Bernard Alex MD Start: 05-20-2012 End: 05-20-2012 Follow Up Appt 4 months Bernard Alex MD Start: 03-12-2012 End: 03-12-2012 *Hepatic Function Panel Bernard Alex MD Start: 03-12-2012 End: 03-12-2012 Lipid 1996 panel - Serum or Plasma Bernard Alex MD Start: 03-12-2012 End: 03-12-2012 Hepatic function 2000 panel - Serum or Plasma Bernard Alex MD Start: 03-12-2012 End: 03-12-2012 Lipid 1996 panel - Serum or Plasma Bernard Alex MD Start: 03-11-2012 End: 03-12-2012 *BMP Bernard Alex MD Start: 03-11-2012 End: 03-12-2012 *CBC with Differential Bernard Alex MD Start: 03-11-2012 End: 03-12-2012 aPTT in Platelet poor plasma by Coagulation assay Bernard Alex MD Start: 03-11-2012 End: 03-12-2012 Chest x-ray Bernard Alex MD Start: 03-11-2012 End: 03-11-2012 Follow Up Appt 2 months Bernard Alex MD Start: 03-11-2012 End: 03-12-2012 INR in Platelet poor plasma by Coagulation assay Bernard Alex MD Start: 03-11-2012 End: 03-12-2012 Left Heart Cath Bernard Alex MD Start: 03-11-2012 End: 03-12-2012 Magnesium [Mass/volume] in Serum or Plasma Bernard Alex MD Start: 03-11-2012 End: 03-12-2012 aPTT in Platelet poor plasma by Coagulation assay Bernard Alex MD Start: 03-11-2012 End: 03-12-2012 Basic metabolic 2000 panel - Serum or Plasma Bernard Alex MD Start: 03-11-2012 End: 03-12-2012 CBC W Auto Differential panel - Blood Bernard Alex MD Start: 03-11-2012 End: 03-12-2012 Chest x-ray Bernard Alex MD Start: 03-11-2012 End: 03-11-2012 Follow Up Appt 2 months Bernard Alex MD Start: 03-11-2012 End: 03-12-2012 INR in Platelet poor plasma by Coagulation assay Bernard Alex MD Start: 03-11-2012 End: 03-12-2012 Magnesium [Mass/volume] in Serum or Plasma Bernard Alex MD Plan of Treatment Date Care Activity Detail Author Start: 02-13-2022 Creatinine measurement Creatinine mo nitoring [facility] Work Phone: Start: 02-13-2022 Potassium monitoring Potassium monit oridavid [facility] Work Phone: Start: 02-04-2022 HbA1c (Bld) [Mass fraction] A1C test (Diabetic or Prediabetic) [employer] Phone: Start: 02-09-2021 End: 04-10-2021 Comprehensive metabolic 2000 panel Comprehensive Metabolic Panel Lab Routine 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) Expected: 02/09/2021, Expires: 04/10/2021 [facility] Work Phone: Comment on above: Expected: 02/09/2021 , Expires: 04/10/2021 Start: 02-08-2021 End: 04-10-2021 CBC auto differential CBC auto differential Lab Routine 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) Expected: 02/08/2021, Expires: 04/10/2021 [employer] Work Phone: Comment on above: Expected: 02/08/2021 , Expires: 04/10/2021 Start: 02-08-2021 End: 04-10-2021 Magnesium [Mass/Vol] Magnesium Lab Routine 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) Expected: 02/08/2021, Expires: 04/10/2021 [employer] Phone: Comment on above: Expected: 02/08/2021 , Expires: 04/10/2021 Start: 02-04-2021 Annual Wellness Visi t (AWV) Annual Wellness Visit (AWV) [employer] Phone: Start: 07-27-2020 Influenza vaccination Flu vaccine (# 1) [employer] Phone: Start: 07-01-2018 End: 07-01-2018 Patient encounter procedure Appointment [facility] Work Phone: Start: 01-31-2018 End: 08-06-2017 *Hepatic Function Panel *Hepatic Function Panel [facility] Work Phone: Start: 01-31-2018 End: 08-06-2017 Lipid panel [AGGREGATE] *Lipid Profile CC PCP [facility] Work Phone: Start: 01-31-2018 End: 08-06-2017 Hepatic function 2000 panel - Serum or Plasma *Hepatic Function Panel [facility] Work Phone: Start: 01-31-2018 End: 08-06-2017 Lipid 1996 panel - Serum or Plasma *Lipid Profile CC PCP [facility] Work Phone: Start: 10-08-2017 End: 10-08-2017 Appointment Appointment [facility] Work Phone: Start: 10-08-2017 End: 10-08-2017 Follow Up Appt 6 months Follow Up Appt 6 months [facility] Work Phone: Start: 10-08-2017 End: 10-08-2017 PFM PFM [facility] Work Phone: Start: 08-09-2017 End: 08-03-2017 *Hepatic Function Panel *Hepatic Function Panel [facility] Work Phone: Start: 08-09-2017 End: 08-03-2017 Lipid panel [AGGREGATE] *Lipid Profile CC PCP [facility] Work Phone: Start: 08-09-2017 End: 08-03-2017 Hepatic function 2000 panel - Serum or Plasma *Hepatic Function Panel [facility] Work Phone: Start: 08-09-2017 End: 08-03-2017 Lipid 1996 panel - Serum or Plasma *Lipid Profile CC PCP [facility] Work Phone: Start: 01-31-2017 End: 02-06-2017 *Hepatic Function Panel *Hepatic Function Panel [facility] Work Phone: Start: 01-31-2017 End: 02-06-2017 Lipid panel [AGGREGATE] *Lipid Profile CC PCP [facility] Work Phone: Start: 01-31-2017 End: 02-06-2017 Hepatic function 2000 panel - Serum or Plasma *Hepatic Function Panel [facility] Work Phone: Start: 01-31-2017 End: 02-06-2017 Lipid 1996 panel - Serum or Plasma *Lipid Profile CC PCP [facility] Work Phone: Start: 12-18-2016 End: 12-18-2016 Follow Up Appt 6 months Follow Up Appt 6 months [facility] Work Phone: Start: 12-18-2016 End: 12-18-2016 PFM PFM [facility] Work Phone: Start: 12-18-2016 End: 12-18-2016 Follow Up Appt 6 months Follow Up Appt 6 months [facility] Work Phone: Start: 12-18-2016 End: 12-18-2016 PFM PFM [facility] Work Phone: Start: 07-28-2016 End: 08-03-2016 *Hepatic Function Panel *Hepatic Function Panel [facility] Work Phone: Start: 07-28-2016 End: 08-03-2016 Lipid panel [AGGREGATE] *Lipid Profile CC PCP [facility] Work Phone: Start: 07-28-2016 End: 08-03-2016 Hepatic function 2000 panel - Serum or Plasma *Hepatic Function Panel [facility] Work Phone: Start: 07-28-2016 End: 08-03-2016 Lipid 1996 panel - Serum or Plasma *Lipid Profile CC PCP [facility] Work Phone: Start: 06-21-2016 End: 06-21-2016 *BMP *BMP [facility] Work Phone: Start: 06-21-2016 End: 06-21-2016 Follow Up Appt 6 months Follow Up Appt 6 months [facility] Work Phone: Start: 06-21-2016 End: 06-21-2016 MMM MMM [facility] Work Phone: Start: 06-21-2016 End: 06-21-2016 Basic metabolic 2000 panel - Serum or Plasma *BMP [facility] Work Phone: Start: 06-21-2016 End: 06-21-2016 Follow Up Appt 6 months Follow Up Appt 6 months [facility] Work Phone: Start: 06-21-2016 End: 06-21-2016 MMM MMM [facility] Work Phone: Start: 01-27-2016 End: 01-26-2016 *Hepatic Function Panel *Hepatic Function Panel [facility] Work Phone: Start: 01-27-2016 End: 01-26-2016 Lipid panel [AGGREGATE] *Lipid Profile CC PCP [facility] Work Phone: Start: 01-27-2016 End: 01-26-2016 Hepatic function 2000 panel - Serum or Plasma *Hepatic Function Panel [facility] Work Phone: Start: 01-27-2016 End: 01-26-2016 Lipid 1996 panel - Serum or Plasma *Lipid Profile CC PCP [facility] Work Phone: Start: 12-13-2015 End: 06-21-2016 Ecg routine ecg w/least 12 lds w/i&r EKG (In office) [facility] Work Phone: Start: 12-13-2015 End: 06-21-2016 Follow Up Appt 6 months Follow Up Appt 6 months [facility] Work Phone: Start: 12-13-2015 End: 06-21-2016 MMM MMM [facility] Work Phone: Start: 12-13-2015 End: 06-21-2016 Ecg routine ecg w/least 12 lds w/i&r EKG (In office) [facility] Work Phone: Start: 12-13-2015 End: 06-21-2016 Follow Up Appt 6 months Follow Up Appt 6 months [facility] Work Phone: Start: 12-13-2015 End: 06-21-2016 MMM MMM [facility] Work Phone: Start: 09-20-2015 End: 12-13-2015 Follow Up Appt 6 months Follow Up Appt 6 months [employer] Work Phone: Start: 09-20-2015 End: 12-13-2015 PF PF [facility] Work Phone: Start: 09-20-2015 End: 12-13-2015 Follow Up Appt 6 months Follow Up Appt 6 months [facility] Work Phone: Start: 09-20-2015 End: 12-13-2015 [facility] Work Phone: Start: 07-30-2015 End: 07-29-2015 *Hepatic Function Panel *Hepatic Function Panel [employer] Work Phone: Start: 07-30-2015 End: 07-29-2015 Lipid panel [AGGREGATE] *Lipid Profile CC PCP [facility] Work Phone: Start: 07-30-2015 End: 07-29-2015 Hepatic function 2000 panel - Serum or Plasma *Hepatic Function Panel [facility] Work Phone: Start: 07-30-2015 End: 07-29-2015 Lipid 1996 panel - Serum or Plasma *Lipid Profile CC PCP [facility] Work Phone: Start: 04-29-2015 End: 04-29-2015 Follow Up Appt Other Follow Up Appt Other [facility] Work Phone: Start: 04-29-2015 End: 04-29-2015 Follow Up Appt Other Follow Up Appt Other [facility] Work Phone: Start: 03-01-2015 End: 03-01-2015 Ecg routine ecg w/least 12 lds w/i&r EKG (In office) [facility] Work Phone: Start: 03-01-2015 End: 03-01-2015 Echocardiography Echocardiogram (complete) [facility] Work Phone: Start: 03-01-2015 End: 03-01-2015 Follow Up Appt 6 months Follow Up Appt 6 months [employer] Work Phone: Start: 03-01-2015 End: 03-01-2015 MMM MMM [facility] Work Phone: Start: 03-01-2015 End: 03-01-2015 Nuclear stress test -Lexiscan Nuclear stress test -Lexiscan [facility] Work Phone: Start: 03-01-2015 End: 03-01-2015 Ecg routine ecg w/least 12 lds w/i&r EKG (In office) [facility] Work Phone: Start: 03-01-2015 End: 03-01-2015 Echocardiography Echocardiogram (complete) [facility] Work Phone: Start: 03-01-2015 End: 03-01-2015 Follow Up Appt 6 months Follow Up Appt 6 months [employer] Work Phone: Start: 03-01-2015 End: 03-01-2015 MMM MMM [facility] Work Phone: Start: 03-01-2015 End: 03-01-2015 Nuclear stress test -Lexiscan Nuclear stress test -Lexiscan [facility] Work Phone: Start: 01-25-2015 End: 01-27-2015 *Hepatic Function Panel *Hepatic Function Panel [facility] Work Phone: Start: 01-25-2015 End: 01-27-2015 Lipid panel [AGGREGATE] *Lipid Profile CC PCP [facility] Work Phone: Start: 01-25-2015 End: 01-27-2015 Hepatic function 2000 panel - Serum or Plasma *Hepatic Function Panel [facility] Work Phone: Start: 01-25-2015 End: 01-27-2015 Lipid 1996 panel - Serum or Plasma *Lipid Profile CC PCP [facility] Work Phone: Start: 10-26-2014 End: 07-20-2014 *Hepatic Function Panel *Hepatic Function Panel [facility] Work Phone: Start: 10-26-2014 End: 07-20-2014 Lipid panel [AGGREGATE] *Lipid Profile CC PCP [facility] Work Phone: Start: 10-26-2014 End: 07-20-2014 Hepatic function 2000 panel - Serum or Plasma *Hepatic Function Panel [facility] Work Phone: Start: 10-26-2014 End: 07-20-2014 Lipid 1996 panel - Serum or Plasma *Lipid Profile CC PCP [facility] Work Phone: Start: 08-17-2014 End: 08-17-2014 Follow Up Appt 6 months Follow Up Appt 6 months [facility] Work Phone: Start: 08-17-2014 End: 08-17-2014 PFM PFM [facility] Work Phone: Start: 08-17-2014 End: 08-17-2014 Follow Up Appt 6 months Follow Up Appt 6 months [facility] Work Phone: Start: 08-17-2014 End: 08-17-2014 PFM PFM [facility] Work Phone: Start: 06-24-2014 End: 07-20-2014 *BMP *BMP [facility] Work Phone: Start: 06-24-2014 End: 07-20-2014 Basic metabolic 2000 panel - Serum or Plasma *BMP [facility] Work Phone: Start: 04-26-2014 End: 05-22-2014 *Hepatic Function Panel *Hepatic Function Panel [facility] Work Phone: Start: 04-26-2014 End: 05-22-2014 Lipid panel [AGGREGATE] *Lipid Profile CC PCP [facility] Work Phone: Start: 04-26-2014 End: 05-22-2014 Hepatic function 2000 panel - Serum or Plasma *Hepatic Function Panel [facility] Work Phone: Start: 04-26-2014 End: 05-22-2014 Lipid 1996 panel - Serum or Plasma *Lipid Profile CC PCP [facility] Work Phone: Start: 02-09-2014 End: 05-22-2014 *BMP *BMP [facility] Work Phone: Start: 02-09-2014 End: 05-22-2014 Basic metabolic 2000 panel - Serum or Plasma *BMP [facility] Work Phone: Start: 08-26-2013 End: 11-17-2013 *Hepatic Function Panel *Hepatic Function Panel [facility] Work Phone: Start: 08-26-2013 End: 11-17-2013 Lipid panel [AGGREGATE] *Lipid Profile [facility] Work Phone: Start: 08-26-2013 End: 11-17-2013 Hepatic function 2000 panel - Serum or Plasma *Hepatic Function Panel [facility] Work Phone: Start: 08-26-2013 End: 11-17-2013 Lipid 1996 panel - Serum or Plasma *Lipid Profile [facility] Work Phone: Start: 07-07-2013 End: 11-17-2013 *Hepatic Function Panel *Hepatic Function Panel [facility] Work Phone: Start: 07-07-2013 End: 11-17-2013 Lipid panel [AGGREGATE] *Lipid Profile CC PCP [facility] Work Phone: Start: 07-07-2013 End: 11-17-2013 Hepatic function 2000 panel - Serum or Plasma *Hepatic Function Panel [facility] Work Phone: Start: 07-07-2013 End: 11-17-2013 Lipid 1996 panel - Serum or Plasma *Lipid Profile CC PCP [facility] Work Phone: Start: 03-19-2013 End: 02-27-2013 *Hepatic Function Panel *Hepatic Function Panel [facility] Work Phone: Start: 03-19-2013 End: 02-27-2013 Lipid panel [AGGREGATE] *Lipid Profile [facility] Work Phone: Start: 03-19-2013 End: 02-27-2013 Hepatic function 2000 panel - Serum or Plasma *Hepatic Function Panel [facility] Work Phone: Start: 03-19-2013 End: 02-27-2013 Lipid 1996 panel - Serum or Plasma *Lipid Profile [facility] Work Phone: Start: 09-20-2012 End: 09-20-2012 Follow Up Appt 6 months Follow Up Appt 6 months [facility] Work Phone: Start: 09-20-2012 End: 09-20-2012 Nuclear stress test -adenosine Nuclear stress test -adenosine [facility] Work Phone: Start: 09-20-2012 End: 09-20-2012 Follow Up Appt 6 months Follow Up Appt 6 months [employer] Work Phone: Start: 09-20-2012 End: 09-20-2012 Nuclear stress test -adenosine Nuclear stress test -adenosine [facility] Work Phone: Start: 08-28-2012 End: 03-05-2013 *Hepatic Function Panel *Hepatic Function Panel [employer] [facility] Phone: Start: 08-28-2012 End: 03-05-2013 Lipid panel [AGGREGATE] *Lipid Profile [facility] Work Phone: Start: 08-28-2012 End: 03-05-2013 Hepatic function 2000 panel - Serum or Plasma *Hepatic Function Panel [facility] Phone: Start: 08-28-2012 End: 03-05-2013 Lipid 1996 panel - Serum or Plasma *Lipid Profile [facility] Phone: Start: 05-29-2012 End: 03-12-2012 *Hepatic Function Panel *Hepatic Function Panel [employer] Work Phone: Start: 05-29-2012 End: 03-12-2012 Lipid panel [AGGREGATE] *Lipid Profile [facility] Work Phone: Start: 05-29-2012 End: 03-12-2012 Hepatic function 2000 panel - Serum or Plasma *Hepatic Function Panel [facility] Work Phone: Start: 05-29-2012 End: 03-12-2012 Lipid 1996 panel - Serum or Plasma *Lipid Profile [facility] Work Phone: Start: 05-20-2012 End: 05-20-2012 Follow Up Appt 4 months Follow Up Appt 4 months [facility] Work Phone: Start: 05-20-2012 End: 05-20-2012 Follow Up Appt 4 months Follow Up Appt 4 months [facility] Work Phone: Start: 03-11-2012 End: 03-12-2012 *BMP *BMP [facility] Work Phone: Start: 03-11-2012 End: 03-11-2012 *CBC with Differential *CBC with Differential [facility] Work Phone: Start: 03-11-2012 End: 03-12-2012 aPTT *PTT-Partial Thromboplastin Time [facility] Work Phone: Start: 03-11-2012 End: 03-12-2012 Chest x-ray X-Ray, Chest, PA & Lateral [facility] Work Phone: Start: 03-11-2012 End: 03-11-2012 Follow Up Appt 2 months Follow Up Appt 2 months [employer] Work Phone: Start: 03-11-2012 End: 03-12-2012 INR Coag RelTime (PPP) *PT/INR [facility] Work Phone: Start: 03-11-2012 End: 03-11-2012 Left Heart Cath Left Heart Cath [facility] Work Phone: Start: 03-11-2012 End: 03-12-2012 Magnesium *Magnesium [facility] Work Phone: Start: 03-11-2012 End: 03-12-2012 aPTT in Platelet poor plasma by Coagulation assay *PTT-Partial Thromboplastin Time [facility] Work Phone: Start: 03-11-2012 End: 03-12-2012 Basic metabolic 2000 panel - Serum or Plasma *BMP [facility] Work Phone: Start: 03-11-2012 End: 03-11-2012 CBC W Auto Differential panel - Blood *CBC with Differential [facility] Work Phone: Start: 03-11-2012 End: 03-12-2012 Chest x-ray X-Ray, Chest, PA & Lateral [facility] Work Phone: Start: 03-11-2012 End: 03-11-2012 Follow Up Appt 2 months Follow Up Appt 2 months [facility] Work Phone: Start: 03-11-2012 End: 03-12-2012 INR in Platelet poor plasma by Coagulation assay *PT/INR [facility] Work Phone: Start: 03-11-2012 End: 03-11-2012 Left Heart Cath Left Heart Cath [facility] Work Phone: Start: 03-11-2012 End: 03-12-2012 Magnesium [Mass/volume] in Serum or Plasma *Magnesium [facility] Work Phone: Start: 2011 Pneumococcal 65+ yea rs Vaccine (1 of 1 - PPSV23) Pneumococcal 65+ years Vaccine (1 of 1 - PPSV23) [facility] Work Phone: Start: 2001 Screening for osteoporosis DEX A (modify frequency per FRAX score) [facility] Work Phone: Start: 1996 Screening for malign ant neoplasm of colon Colon cancer screen colonoscopy [facility] Work Phone: Start: 1996 Shingles Vaccine (1 of 2) Shingles V accine (1 of 2) [facility] Work Phone: Start: 1965 DTaP/Tdap/Td vaccine (1 - Tdap) DTaP/Tdap/Td vaccine (1 - Tdap) [facility] Work Phone: Start: 1964 Diabetic microalbumi patricio test Diabetic microalbuminuria test [facility] Work Phone: Start: 1962 COVID-19 Vaccine (1) COVID-19 Vaccin e (1) [facility] Work Phone: Start: 1956 Diabetic foot examination Diabetic f oot exam [facility] Work Phone: Start: 1956 Diabetic retinal exam Diabetic retin al exam [facility] Work Phone: Start: 1956 Lipid panel Lipid screen [facility] Work Phone: Start: 1946 Hepatitis C screening Hepatitis C sc reen [facility] Work Phone: Basic metabolic 2000 panel Basic Metabolic Panel Lab Routine Daily until discontinued starting 02/09/2021, 5 completed [facility] Work Phone: Comment on above: Daily until disconti nued starting 02/09/2021, 5 completed Calcium, Ionized Calcium, Ionize d Lab Routine As Needed until discontinued starting 02/09/2021 [facility] Work Phone: Comment on above: As Needed until disc ontinued starting 02/09/2021 CBC CBC Lab Routine Daily until discontinued starting 02/09/2021, 5 completed [facility] Work Phone: Comment on above: Daily until disconti nued starting 02/09/2021, 5 completed End: 03-10-2021 COVID-19 COVID-19 Lab Routine 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) 1 Occurrences starting 02/08/2021 until 03/10/2021 [facility] Work Phone: Comment on above: 1 Occurrences starti ng 02/08/2021 until 03/10/2021 End: 04-10-2021 Culture, Staph Aureus - [facility] only Culture, Staph Aureus - [facility] only Microbiology Routine 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) 1 Occurrences starting 02/08/2021 until 04/10/2021 [facility] Work Phone: Comment on above: 1 Occurrences starti ng 02/08/2021 until 04/10/2021 Home BIPAP or CPAP Home BIPAP or CPAP Respiratory Care Routine Daily until discontinued starting 02/10/2021 [facility] Work Phone: Comment on above: Daily until disconti nued starting 02/10/2021 Magnesium [Mass/Vol] Magnesium L ab Routine Daily until discontinued starting 02/09/2021, 5 completed [facility] Work Phone: Comment on above: Daily until disconti nued starting 02/09/2021, 5 completed Patient Education [facility] Work Phone: POCT Glucose [facility] Work Phone: Comment on above: As Needed until disc ontinued starting 02/09/2021 4X Daily (AC & HS) u ntil discontinued starting 02/11/2021 End: 04-10-2021 PREPARE RBC (CROSSMATCH), 1 Units PREPARE RBC (CROSSMATCH), 1 Units Blood Bank Routine 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) 1 Occurrences starting 02/08/2021 until 04/10/2021 [facility] Work Phone: Comment on above: 1 Occurrences starti ng 02/08/2021 until 04/10/2021 End: 04-10-2021 Type and screen Type and screen Blood Bank Routine 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 1945 Unknown [id number] 1945 Unknown [id number] 1945 Unknown [id number] Medicare [id number] Medicare [id number] Private Health Insurance [id number] Social History Date Type Detail Facility Start: 02-10-2021 Tobacco smoking stat [facility] Never smoker [facility] Phone: Start: 02-10-2021 Tobacco use and exposure Never used [facility] Phone: Start: 02-10-2021 Alcohol intake Lifetime non-d roseanna (finding) [facility] Work Phone: Start: 02-03-2021 History SDOH Alcohol Frequency 1 [facility] Phone: Start: 02-03-2021 History SDOH Alcohol Std Drinks 99 [facility] Phone: Sex Assigned At Not on file [facility] Phone: Exposure to SARS-CoV -2 (event) Not sure [facility] Phone: Discharge summary note 02-13-2021 Note Date & Type Note Facility 02-13-2021 Note Attestation signed by Maira Lao MD at 02/13/2021 9:04 AM DOS: 02/13/2021 I personally performed a face to face diagnostic evaluation on this patient. I agree with the findings and plan of care as documented by the resident/ENTRY LEVEL ACCOUNTANT/WINDOWS SYSTEMS ENGINEER/PA, unless otherwise noted. Maira Lao MD Cardiothoracic Surgery Discharge Summary: Cardiothoracic Surgery Danii Wolfe :1945 AGE: 75 y.o. ADMIT DATE: 02/02/2021 DISCHARGE DATE: 02/13/2021 DISCHARGING SURGEON: Maira Lao MD, Office Number: [phone] PRIMARY CARE PHYSICIAN: No primary care provider on file., None VISIT STATUS: Admission CODE STATUS: Full Code SURGERY:02/09/2021: CABG x3 (MAYS to LAD, SVG to OM, SVG to diagonal HOSPITAL COURSE: 75 y.o. F with PMH of DM, HLD, CAD/stents, ZITA (cpap), breast CA (kimberli mastectomy/chemo), HTN, mitral & tricuspid valve insufficiency, OA, and DVT underwent an outpatient cardiac catheterization at [facility] on 02/02/21 which demonstrated multivessel CAD. She underwent a CABG x3 (MAYS to LAD, SVG to OM, SVG to diagonal) with Dr. Lao on 02/09/21 following a 7 day plavix washout. Her post-operative course was unremarkable. She is being discharged home today on POD#4. CONSULTS/TREATMENT TEAM: Critical Care Medicine/Pulm Endocrinology DIAGNOSTICS: ROHAN 02/09/21: EF 60% DISCHARGE DIAGNOSES: Patient Active Problem List Diagnosis Code ? Coronary artery disease involving north fork coronary artery I25.10 ? Diabetes (HCC) E11.9 ? CAD in north fork artery I25.10 ? Class 2 severe obesity with serious comorbidity and body mass index (BMI) of 37.0 to 37.9 in adult (HCC) E66.01, Z68.37 ? S/P CABG (coronary artery bypass graft) Z95.1 DISCHARGE MEDICATIONS: Danii Wolfe Home Medication Instructions ESTEFANIA:[id number] Printed on:02/13/21 0856 Medication Information anastrozole (ARIMIDEX) 1 MG tablet Take 1 mg by mouth daily aspirin 81 MG chewable tablet Take 81 mg by mouth daily atorvastatin (LIPITOR) 10 MG tablet Take 1 tablet by mouth nightly calcium citrate-vitamin D (CITRICAL + D) 315-250 MG-UNIT TABS per tablet Take 1 tablet by mouth 2 times daily (with meals) clopidogrel (PLAVIX) 75 MG tablet Take 1 tablet by mouth daily dicyclomine (BENTYL) 20 MG tablet Take 20 mg by mouth every 6 hours hydroCHLOROthiazide (HYDRODIURIL) 25 MG tablet Take 25 mg by mouth daily metFORMIN (GLUCOPHAGE) 1000 MG tablet Take 1,000 mg by mouth 2 times daily (with meals) metoprolol tartrate (LOPRESSOR) 25 MG tablet Take 1 tablet by mouth 2 times daily oxyCODONE-acetaminophen (PERCOCET) 5-325 MG per tablet Take 1 tablet by mouth every 8 hours as needed for Pain for up to 7 days. Intended supply: 7 days. Take lowest dose possible to manage pain polyethylene glycol (GLYCOLAX) 17 g packet Take 17 g by mouth daily potassium chloride (MICRO-K) 10 MEQ extended release capsule Take 20 mEq by mouth 2 times daily ramipril (ALTACE) 2.5 MG capsule Take 2.5 mg by mouth daily vitamin D (ERGOCALCIFEROL) 1.25 MG (47745 UT) CAPS capsule Take 50,000 Units by mouth once a week Mondays and fridays *The patient's OARRS report was obtained and reviewed.* I explained to Danii Wolfe that narcotic pain medications have addictive potential and should only be taken for acute post operative surgical pain. I also explained that narcotic/opioid medication should not be taken to help sleep as they are only intended to treat pain. In addition the patient needs to avoid driving or taking other narcotics, anxiolytics or consuming alcohol or using street drugs while they are taking the narcotic because serious side effects including can occur. I discussed the side effects that can occur when taking a narcotic alone including but not limited to: nausea, vomiting, constipation and drowsiness.I told the patient that if they have any reactions to the medication or any percieved problems with the medication, they are to stop the medication and call me. CORE CARDIAC MEDICATIONS: Beta-leonard prescribed at discharge: [x] Yes [] No - reason why: ACEi or ARB prescribed at discharge: [x] Yes [] No - reason why: Statin prescribed at discharge: [x] Yes [] No - reason why: Anti-platelet agent prescribed at discharge: [x] Yes [] No - reason why: If yes, type: ASA Post-operative Atrial Fibrillation: []Yes [x] No OAC: [] Yes [x] No Initial Post-op RBC transfusion date/reason: None noted Chronic Lung Disease: Mild (FEV1 60% to 75% of predicted, and/or on chronic inhaled or oral bronchodilator therapy) BMI CLASSIFICATION:Obese (BMI 30.0-39.9) ACTIVITY: activity as tolerated, strict post-sternotomy/post-thoracotomy sternal precautions as outlined in the home going instructions and no driving or operating heavy machinery until released by provider DISP (more content not included)... [facility] Clinical Note 02-09-2021 Note Date & Type Note Facility 02-09-2021 Note DATE OF PROCEDURE: PREOPERATIVE DIAGNOSIS: Coronary artery disease Mild mitral regurgitation POSTOPERATIVE DIAGNOSIS: Coronary artery disease Mild mitral regurgitation PROCEDURE: 1. Coronary artery bypass grafting x 3 - Left internal mammary artery to the left anterior descending - Saphenous vein graft to the obtuse marginal - Saphenous vein graft to the diagonal 2. Endoscopic vein harvest, left lower extremity SURGEON: Maira Lao MD SEROLOGY TEACHER: MD Thierry Cardoza RNFA COMPLICATIONS: None intra-op CONDITION: Stable DESCRIPTION OF PROCEDURE: The patient was prepped and draped in the appropriate manner, having undergone general endotracheal anesthetic in addition to [place]-Luis catheter placement, arterial line, and hernandez catheter placement. An antibiotic and a beta leonard were administered pre-operatively and documented. Incision and conduit harvest/preparation: A midline sternotomy incision was utilized in standard fashion. The sternum was divided with the oscillating saw. The left internal mammary artery was skeletonized and taken down with clips and bovie cauterization. Papaverine was used. The left lower extremity saphenous vein was harvested via the endoscopic approach. The patient was fully heparinized prior to dividing and prepping the mammary. Cannulation and cardiopulmonary bypass: After cannulation, the patient was placed on cardiopulmonary bypass support and drifted to ~34 degrees. Ascending aortic cross-clamp was applied. Antegrade and retrograde cardioplegia (microplegia) was delivered till the heart was arrested in diastole. Cardioplegia was re-administered every 20 minutes while the ascending aorta was cross clamped. Aortic canula: 21 Fr soft flow angled cannula in distal ascending aorta Venous canula: 29/29 Fr triple stage cannula via right atrial appendage Cardioplegia: Antegrade via cannula in the mid ascending aorta. Retrograde plegia via coronary sinus Coronary artery bypass: Bypasses were performed to an obtuse marginal and previously stented diagonal. The obtuse marginal target was small but adequate. The stent in the diagonal was palpated and a graft was anastomosed to this vessel distal to the stent. Proximal anastomoses were performed with 7-0 Prolene distally and 6-0 Prolene proximally to the ascending aorta. The left internal mammary artery was anastomosed to the LAD with 7-0 Prolene. The proximal to mid LAD was intramuscular, the vessel was readily identified in the distal portion. Of note, the ramus was intramyocardial and there was no visible vessel on the epicardium. CPB wean and decannulation: The patient was given a dose of warm blood cardioplegia. Valsalva breaths were mechanically administered and the aorta was unclamped. The heart returned to normal sinus rhythm. Pacing wire was placed as the rhythm was bradycardic. The DLP left in place as a root vent. The patient was rewarmed to 38 degrees and weaned from cardiopulmonary bypass support without difficulty. Protamine was administered and cannulas were removed without difficulty. Two 24 Fr wagner drains were placed, one in the left pleural space and one in the mediastinum. Closure: Hemostasis was achieved. The sternum and incision were closed with seven #6 wire sternal wires, running 0, 2-0 and 4-0 stitches. Dressings applied, and the patient was transferred to the cardiovascular intensive care unit in stable condition. Cardiopulmonary bypass time: 122 minutes Cross clamp time: 101 minutes Intra-op ROHAN: Normal EF pre and post op. No valvular or WMA changes. Maira Lao MD Cardiothoracic Surgery [facility] Fall risk assessment 10-08-2017 Note Date & Type Note Facility 10-08-2017 Fall risk assessm [facility] Work Phone: [email or web address] No Summary Purpose Family History No Family History Records FoundNo Family History Records Found Advance Directives No Advanced Directives Records FoundLatest Code Status on File Code Status Date Activated Date Inactivated Comments Full Code 02/09/2021 5:52 PM Full Code 02/02/2021 7:16 PM 02/09/2021 5:51 PM Hospital Course * Dmitry Begum APRN - FURNITURE SERVICER - 02/13/2021 7:42 AM EDT Images from the original note were not included. Discharge Summary: Cardiothoracic Surgery Danii Wolfe :1945 AGE: 75 y.o. ADMIT DATE: 02/02/2021 DISCHARGE DATE: 02/13/2021 DISCHARGING SURGEON: Maira Lao MD, Office Number: [phone] PRIMARY CARE PHYSICIAN: No primary care provider on file., None VISIT STATUS: Admission CODE STATUS: Full Code SURGERY:02/09/2021: CABG x3 (MAYS to LAD, SVG to OM, SVG to diagonal HOSPITAL COURSE: 75 y.o. F with PMH of DM, HLD, CAD/stents, ZITA (cpap), breast CA (kimberli mastectomy/chemo), HTN, mitral & tricuspid valve insufficiency, OA, and DVT underwent an outpatient cardiac catheterization at [place] on 02/02/21 which demonstrated multivessel CAD. She underwent a CABG x3 (MAYS to LAD, SVG to OM, SVG to diagonal) with Dr. Lao on 02/09/21 following a 7 day plavix washout. Her post-operative course was unremarkable. She is being discharged home today on POD#4. CONSULTS/TREATMENT TEAM: Critical Care Medicine/Pulm Endocrinology DIAGNOSTICS: ROHAN 02/09/21: EF 60% DISCHARGE DIAGNOSES: Patient Active Problem List Diagnosis Code Coronary artery disease involving north fork coronary artery I25.10 Diabetes ([facility]) E11.9 CAD in north fork artery I25.10 Class 2 severe obesity with serious comorbidity and body mass index (BMI) of 37.0 to 37.9 in adult ([facility]) E66.01, Z68.37 S/P CABG (coronary artery bypass graft) Z95.1 DISCHARGE MEDICATIONS: Danii Wolfe Home Medication Instructions ESTEFANIA:[id number] Printed on:02/13/21 0856 Medication Information anastrozole (ARIMIDEX) 1 MG tablet Take 1 mg by mouth daily aspirin 81 MG chewable tablet Take 81 mg by mouth daily atorvastatin (LIPITOR) 10 MG tablet Take 1 tablet by mouth nightly calcium citrate-vitamin D (CITRICAL + D) 315-250 MG-UNIT TABS per tablet Take 1 tablet by mouth 2 times daily (with meals) clopidogrel (PLAVIX) 75 MG tablet Take 1 tablet by mouth daily dicyclomine (BENTYL) 20 MG tablet Take 20 mg by mouth every 6 hours hydroCHLOROthiazide (HYDRODIURIL) 25 MG tablet Take 25 mg by mouth daily metFORMIN (GLUCOPHAGE) 1000 MG tablet Take 1,000 mg by mouth 2 times daily (with meals) metoprolol tartrate (LOPRESSOR) 25 MG tablet Take 1 tablet by mouth 2 times daily oxyCODONE-acetaminophen (PERCOCET) 5-325 MG per tablet Take 1 tablet by mouth every 8 hours as needed for Pain for up to 7 days. Intended supply: 7 days. Take lowest dose possible to manage pain polyethylene glycol (GLYCOLAX) 17 g packet Take 17 g by mouth daily potassium chloride (MICRO-K) 10 MEQ extended release capsule Take 20 mEq by mouth 2 times daily ramipril (ALTACE) 2.5 MG capsule Take 2.5 mg by mouth daily vitamin D (ERGOCALCIFEROL) 1.25 MG (66870 UT) CAPS capsule Take 50,000 Units by mouth once a week Mondays and fridays *The patient's OARRS report was obtained and reviewed.* I explained to Danii Wolfe that narcotic pain medications have addictive potential and should onlybe taken for acute post operative surgical pain. I also explained that narcotic/opioid medication should not be taken to help sleep as they are only intended to treat pain. In addition the patient needs to avoid driving or taking other narcotics, anxiolytics or consuming alcohol or using street drugs while they are taking the narcotic because serious side effects including can occur. I discussed the side effects that can occur when taking a narcotic alone including but not limited to: nausea, vomiting, constipation and drowsiness.I told the patient that if they have any reactions to themedication or any percieved problems with the medication, they are to stop the medication and call me. CORE CARDIAC MEDICATIONS: Beta-leonard prescribed at discharge: [x] Yes [] No - reason why: ACEi or ARB prescribed at discharge: [x] Yes [] No - reason why: Statin prescribed at discharge: [x] Yes [] No - reason why: Anti-platelet agent prescribed at discharge: [x] Yes [] No - reason why: If yes, type: ASA Post-operative Atrial Fibrillation: []Yes [x] No OAC: [] Yes [x] No Initial Post-op RBC transfusion date/reason: None noted Chronic Lung Disease: Mild (FEV1 60% to 75% of predicted, and/or on chronic inhaled or oral bronchodilator therapy) BMI CLASSIFICATION:Obese (BMI 30.0-39.9) ACTIVITY: activity as tolerated, strict post-sternotomy/post-thoracotomy sternal precautions as outlined in the home going instructions and no driving or operating heavy machinery until released by provider DISPOSITION: Home with Home Assist IGNACIO Cheney CNP Go on 02/22/2021 post op follow up, (CHRISSY w/ Dr. Lao), Time: Office will call you with time [address] [facility] [address] [facility] [address] [place] Schedule an appointment as soon as possible for a visit in 3 weeks A copy of the discharge instructions which included the medications at the time of discharge, follow-up appointments, phone numbers to call with questions, activity, restrictions, and limitations wasprovided to the patient or their family. We greatly appreciate the opportunity to participate in the care of your patient. If you have any additional questions or concerns regarding any aspects of their care or management please do not hesitate to contact us. SIGNED: IGNACIO Cheney CNP 02/13/2021, 8:56 AM Associated attestation - Maira Lao MD - 02/13/2021 9:04 AM EDT DOS: 02/13/2021 I personally performed a face to face diagnostic evaluation on this patient. I agree with the findings and plan of care as documented by the resident/ENTRY LEVEL ACCOUNTANT/WINDOWS SYSTEMS ENGINEER/PA, unless otherwise noted. Maira Lao MD Cardiothoracic Surgery documented in this encounter Discharge Instructions * Discharge Instr - Lab* Julissa Booker LPN - 02/12/2021 4:01 PM EDT Your physician has ordered skilled home care services for you. Your home care will be provided by: [facility] [phone] SCHEDULING [phone] * Additional Instructions* Dmitry Begum APRN - FURNITURE SERVICER - 02/13/2021 Images from the original note were not included. [facility]: Cardiothoracic Surgery [address] [place] [address]. [address] [facility] #[phone] Notify us if the following occur - Increased tenderness, redness, or swelling of your incisions. - Any drainage from the chest incision (clear or pink drainage from the leg incision or chest tube site is common). - Angina symptoms like those you had before surgery - Sharp pain in chest, neck or shoulder that is worse when taking a deep breath - Persistent fever greater than 100 degrees F or 38 degrees C - Flu-like symptoms-chills, aches, fever, increased fatigue - Heart rate faster than 150 beats/minute with shortness of breath or new irregular heart rate. - Any unusual bleeding - Shortness of breath not relieved by rest - Weight gain of three pounds in one day or five pounds over one week Activity Instructions - Sternal Precautions for 6 weeks - Do not lift, push, or pull anything heavier than 10 pounds for 6 weeks (a gallon of milk weighs 8pounds). - Do not drive until you have been given permission by your surgeon/provider and until you are off narcotic/opioid pain medication - It is ok to sleep on your side if you prop pillows to support your back. Do not sleep on your stomach. - Walk at least 4 times a day, start with 5 minute intervals, increase minutes walked each day. Do not walk on a treadmill - Balance rest and activity during your recovery - Use the stairs, but go slowly, Use the handrail for balance but do not pull yourself up with yourarms. - Shower daily. Do not take your heart medication right before you shower. You could become lightheaded from your blood pressure and heart medication. Always have someone nearby to assist you. - Do not take a tub bath or use a hot tub until all incision are completely healed (no scab). - Put davis hose on in AM and remove at bedtime. Elevate your feet above level of heart when you are sitting. - Cough and deep breathe and use incentive spirometer every hour (10x/hour while awake for two weeks. Other Instructions - Weigh yourself daily at the same time (after you urinate but before breakfast) - Keep a record of your daily weight, and bring to your first post op office visit - Take all medications as prescribed. Bring all your medication bottles to any follow up office visit Incision Care - Wash your sternal incision with anti-bacterial soap and warm water. Pat dry, and leave open to air. Do not use any lotions, or powders, or ointments. documented in this encounter History of Present Illness * Miles White MD - 02/13/2021 1:19 PM EDT Images from the original note were not included. Department of Internal Medicine Division of Endocrinology, Diabetes, & Metabolism Endocrinology Note Patient Name: Danii Wolfe : 1945 AGE: 75 y.o. Room/Bed: [address] Admission Date: 02/02/2021 3:33 PM Consult Date: 02/10/21 Visit Date: 02/13/2021 Reason for Endocrine Consult: Type 2 diabetes s/p CABG X 3 Provider/Team Requesting Consult: Dr Lao PCP: No primary care provider on file. Outpt It Security Administrator: no ASSESSMENT: Type 2 diabetes with hyperglycemia without watcher automat long goods insulin use s/p CABG Type 2 diabetes with CAD Obesity BMI 37.02 PLAN: Continue Lantus 20 units every morning Continue Humalog 6 units before meals with medium dose correction Obtain blood glucose readings before meals and at bedtime Carb controlled diet Treat hypoglycemia per protocol Target BG on General floors: FBG <140 and random BG <180 Target BG for ICU <180 Patient was counseled about the importance of diabetes management. Patient was counseled about the importance of following a healthy diet and exercise. Patient was counseled about hypoglycemia symptoms and management. Discussed option of Trulicity and patient would like to try it. Discussed benefits of Trulicity on weight and heart. I have counseled the patient about the transient gastrointestinal side effects andabout the infrequent risk of pancreatitis and medullary thyroid carcinoma ANTICIPATED ENDOCRINE HOME GOING RECOMMENDATIONS: Optimized for Discharge from Endocrine standpoint: yes Home Going Endocrine Rx Recommendations-- Metformin 1000 mg twice a day Trulicity 0.75 mg subcutaneous weekly Outpt Follow Up-- Pt will follow with PCP or [facility] Endo Appointment request sent to Endo office Staff: No SUBJECTIVE/HPI: CHIEF COMPLAINT: CAD s/p CABG x 3 Type of DM: 2 Onset of DM: 3 years ago, DX on Home DM Medication Regimen: Metformin 1000 mg BID DM control (last A1c/glucose data): Lab Results Component Value Date LABA1C 8.2 (A) 02/04/2021 Lab Results Component Value Date EAG 189 02/04/2021 Denies nausea, vomiting, CP, shortness of breath Reported decreased appetite so she has not been getting her scheduled Humalog Review of Systems Constitutional: Negative for chills and fever. HENT: Negative for sinus pressure, trouble swallowing and voice change. Eyes: Negative for pain, redness, itching and visual disturbance. Respiratory: Negative for apnea, cough, chest tightness and shortness of breath. Cardiovascular: Negative for chest pain, palpitations and leg swelling. Gastrointestinal: Negative for abdominal pain, constipation, diarrhea, nausea and vomiting. Endocrine: Negative for cold intolerance, heat intolerance, polydipsia and polyphagia. Skin: Negative for rash. Neurological: Negative for dizziness, weakness and numbness. Psychiatric/Behavioral: Negative for sleep disturbance. The patient is not nervous/anxious. OBJECTIVE: Vitals: 02/13/21 0900 02/13/21 1000 02/13/21 1100 02/13/21 1200 BP: Pulse: 94 84 83 81 Resp: Temp: TempSrc: SpO2: 91% 97% 95% Weight: Height: Physical Exam Constitutional: Appearance: She is well-developed. She is obese. HENT: Head: Normocephalic and atraumatic. Eyes: General: Right eye: No discharge. Left eye: No discharge. Neck: Thyroid: No thyromegaly. Trachea: No tracheal deviation. Cardiovascular: Rate and Rhythm: Normal rate and regular rhythm. Pulmonary: Breath sounds: No wheezing or rales. Chest: Chest wall: No tenderness. Abdominal: General: There is no distension. Tenderness: There is no abdominal tenderness. There is no rebound. Comments: obese Musculoskeletal: General: No tenderness. Right lower leg: No edema. Left lower leg: No edema. Skin: Findings: No rash. Neurological: Mental Status: She is alert and oriented to person, place, and time. Psychiatric: Mood and Affect: Mood normal. Behavior: Behavior normal. Thought Content: Thought content normal. 24 hour intake/output: Intake/Output Summary (Last 24 hours) at 02/13/2021 1319 Last data filed at 02/13/2021 0530 Gross per 24 hour Intake 1500 ml Output 2900 ml Net -1400 ml Diet: DIET CARDIAC; Carb Control: 5 carb choices (75 gms)/meal; Low Sodium (2 GM) Medications (as per EMR): HomeMeds: Prior to Admission medications Medication Sig Start Date End Date Taking? Authorizing Provider metoprolol tartrate (LOPRESSOR) 25 MG tablet Take 1 tablet by mouth 2 times daily 02/13/21 Yes IGNACIO Cheney CNP polyethylene glycol (GLYCOLAX) 17 g packet Take 17 g by mouth daily 02/13/21 03/15/21 Yes IGNACIO Cheney CNP oxyCODONE-acetaminophen (PERCOCET) 5-325 MG per tablet Take 1 tablet by mouth every 8 hours as needed for Pain for up to 7 days. Intended supply: 7 days. Take lowest dose possible to manage pain 02/13/21 02/20/21 Yes IGNACIO Cheney CNP atorvastatin (LIPITOR) 10 MG tablet Take 1 tablet by mouth nightly 02/13/21 Yes IGNACIO Cheney clopidogrel (PLAVIX) 75 MG tablet Take 1 tablet by mouth daily 02/13/21 Yes IGNACIO Cheney CNP Dulaglutide (TRULICITY) 0.75 MG/0.5ML SOPN Inject 0.75 mg into the skin once a week 02/13/21 Yes IGNACIO Cheney CNP anastrozole (ARIMIDEX) 1 MG tablet Take 1 mg by mouth daily Yes Historical Provider, aspirin 81 MG chewable tablet Take 81 mg by mouth daily Yes Historical Provider, calcium citrate-vitamin D (CITRICAL + D) 315-250 MG-UNIT TABS per tablet Take 1 tablet by mouth 2 times daily (with meals) Yes Historical Provider, dicyclomine (BENTYL) 20 MG tablet Take 20 mg by mouth every 6 hours Yes Historical Provider, vitamin D (ERGOCALCIFEROL) 1.25 MG (58687 UT) CAPS capsule Take 50,000 Units by mouth once a week Mondays and fridays Yes Historical Provider, hydroCHLOROthiazide (HYDRODIURIL) 25 MG tablet Take 25 mg by mouth daily Yes Historical Provider, metFORMIN (GLUCOPHAGE) 1000 MG tablet Take 1,000 mg by mouth 2 times daily (with meals) Yes Historical Provider, potassium chloride (MICRO-K) 10 MEQ extended release capsule Take 20 mEq by mouth 2 times daily YesHistorical Provider, ramipril (ALTACE) 2.5 MG capsule Take 2.5 mg by mouth daily Yes Historical Provider, Scheduled Meds: ramipril 2.5 mg Oral Daily potassium chloride 20 mEq Oral BID hydroCHLOROthiazide 25 mg Oral Daily metoprolol tartrate 25 mg Oral BID clopidogrel 75 mg Oral Daily insulin lispro 6 Units Subcutaneous TID WC insulin lispro 0-12 Units Subcutaneous TID insulin glargine 20 Units Subcutaneous QAM atorvastatin 10 mg Oral Nightly aspirin 81 mg Oral Daily enoxaparin 40 mg Subcutaneous Daily acetaminophen 1,000 mg Oral Q8H mupirocin Nasal BID polyethylene glycol 17 g Oral Daily sennosides-docusate sodium 2 tablet Oral Nightly sodium chloride flush 10 mL Intracatheter Q8H lidocaine 1 patch Transdermal Daily Continuous Infusions: sodium chloride 20 mL/hr at 02/09/21 1825 dextrose PRN Meds:sodium chloride flush, ondansetron, morphine OR morphine, potassium chloride, potassium chloride, magnesium sulfate, calcium gluconate, albumin human, sodium chloride, glucose, dextrose,glucagon (rDNA), dextrose, insulin regular, sodium chloride flush, oxyCODONE OR oxyCODONE Diagnostic Workup: I reviewed pertinent Laboratory results, Radiographic results, and Other Clinical Notes at the timeof today's encounter. BMP: Recent Labs 02/11/21 0002 02/11/21 0848 02/12/21 0138 02/13/21 0405 NA 133* -- 137 137 K 3.2* 4.4 4.0 3.2* CL 98 -- 99 100 CO2 28 -- 31* 34* BUN 17 -- 19 20 CREATININE 0.80 -- 0.62 0.61 GLUCOSE 84 -- 145* 125* Glucose: Recent Labs 02/11/21 0811 02/11/21 0932 02/11/21 1209 02/11/21 1407 02/11/21 1740 02/12/21 0906 02/12/21 1302 02/12/21 1605 POCGLU 190* 225* 144* 188* 128* 200* 175* 138* HgbA1C: No results for input(s): LABA1C in the last 72 hours. Hepatic: No results for input(s): ALKPHOS, ALT, AST, PROT, BILITOT, BILIDIR, LABALBU in the last 72hours. Lipids: No results for input(s): CHOL, TRIG, HDL, LDLCALC in the last 72 hours. Invalid input(s): LDL TSH: No results found for: TSH, J1UVTCZ, X2FTCQX, THYROIDAB, FT3, T4FREE Radiology reportsas per the Radiologist Radiology: Echo Complete 2d W Doppler W Color Result Date: 02/03/2021 TRANSTHORACIC ECHOCARDIOGRAM PATIENT: aDnii Wolfe STUDY DATE: 02/03/2021 : 1945 AGE: 75 HT/WT: 165.1 cm (65 102.1 kg (224.5 in) lb) GENDER: F BP: 157 / 82 LOCATION: [facility] PATIENT Inpatient main STATUS: *ORDERING PHYSICIAN: * Koffi Bates *READING PHYSICIAN: * Chastity Borden MD *MECHANICAL MANUFACTURING TECHNICIAN: * Shana Riley INDICATIONS: Assess prior to CABG surgery. CONCLUSIONS SUMMARY: 1.Left ventricle: The cavity size is normal. Wall thickness is normal. Systolic function is normal bythe biplane method of disks. The estimated ejection fraction is 64%. There are no regional wall motion abnormalities. Although strain assessment was abnormal in the basal and mid lateral [place]ough[place], no clear evidence for hypokinesis of the region. Left ventricular diastolic function parameters are normal for the patient's age. E/e' average: 8.7 2. No significant valve disease. STUDY DATA: Complete transthoracic echocardiogram. Procedure: Image quality was good. M-mode, complete 2D, strain rate, complete spectral Doppler, and color flow Doppler images were acquired and archived for permanent storage and are available for subsequent review. Study status: Routine. Patient status: Inpatient. ECG RHYTHM: NSR FINDINGS LEFT VENTRICLE: Average LV global longitudinal strain is -21. The cavity size is normal. Wall thickness is normal. Systolic function is normal by the biplane method of disks. The estimated ejection fraction is 64%. There are no regional wall motion abnormalities. Although strain assessment was abnormal in the basal and mid lateral willough[place], no clear evidence for hypokinesis of the region. Left ventricular diastolic function parameters are normal for the patient's age. E/e' average: 8.7 RIGHT VENTRICLE: The cavity size is normal. Systolic function is normal. Right ventricular systolic pressure is mildly increased. RVSP = 43 mm Hg assuming RAP = 3 mm Hg, VENTRICULAR SEPTUM: There is no evidence of a ventricular septal defect. LEFT ATRIUM: The atrium is normal in size. LEYLA = 31 ml/m2. RIGHT ATRIUM: The atrium is normal in size. ATRIAL SEPTUM: Color Doppler shows no shunt. MITRAL VALVE: Moderately calcified annulus. Doppler: Thereis mild, 1+ regurgitation. The valve area (LVOT continuity) is 2.1 cm^2. The mean diastolic gradient is 1 mm Hg. The peak diastolic gradient is 5 mm Hg. AORTIC VALVE: Structurally normal valve. Abisai miller. Doppler: There is no regurgitation. The peak systolic gradient is 11 mm Hg. The peak systolicvelocity is 1.7 m/sec. TRICUSPID VALVE: Structurally normal valve. Doppler: There is mild, 1+ regurgitation. PULMONIC VALVE: Doppler: There is mild, 1+ regurgitation. AORTA: The aorta is normal. PULMONARY ARTERY: Main pulmonary artery: Normal. PERICARDIUM: There is no pericardial effusion. SYSTEMICVEINS: Inferior vena cava: The vessel is normal. The IVC collapses by greater than 50% with inspiration. Measurements Value Reference Aortic root ID 3.3 cm <4.3 Aortic root ID, STJ, ED 3.1 cm 2.0 - 3.2 Aortic root ID/bsa, STJ, ED 1.4 cm/m^2 1.1 - 1.9 Value Reference Ascending aorta ID, A-P, S 3.6 cm Ascending aorta ID/bsa, A-P, S 1.6 cm/m^2 Left ventricle Value Reference GLS, 2D 20.20 % LV ID, ED (H) 5.4 cm 3.8 - 5.2 LV ID, ES 3.2 cm 2.2 - 3.5 LV ID/bsa, ED 2.4 cm/m^2 2.3 - 3.1 LV ID/bsa, ES 1.5 cm/m^2 1.3 - 2.1 LV PW thickness, ED 0.9 cm 0.6 - 0.9 LV PW/LV ID ratio, ED 0.17 LV wall mass (H) 172 g 66 - 150 LV wall mass/bsa 78 g/m^2 44 - 88 Stroke volume/bsa, 1-p A2C 40.6 ml/m^2 LV end-diastolic volume, 1-p A4C 115 ml 48 - 140 LV end-systolic volume, 1-p A4C 43 ml 12 - 60 LV end-diastolic volume, 2-p (H) 131 ml 46 - 106 LV end-systolic volume, 2-p (H) 47 ml 14 - 42 LV ejection fraction, 2-p 64 % 54 - 74 LV E/e', lateral 7.1 LV E/e', medial 11 LV E/e', average 8.7 Ventricular septum Value Reference IVS thickness, ED 0.8 cm0.6 - 0.9 LVOT Value Reference LVOT ID, A-P 1.9 cm LVOT mean velocity, S 0.6 m/sec LVOT peak gradient, S 6 mm Hg Stroke volume (SV), LVOT DP 61 ml Stroke index (SV/bsa), LVOT DP 28 ml/m^2 Aortic valve Value Reference Aortic valve peak velocity,S 1.7 m/sec Aortic peak gradient, S 11 mm Hg Left atrium Value Reference LA volume/bsa, ES, 2-p 29 ml/m^2 16 - 34 Mitral valve Value Reference Mitral E-wave peak velocity 0.7 m/sec Mitral A-wave peak velocity 0.6 m/sec Mitral deceleration time 211 ms Mitral mean gradient, D 1 mm Hg Mitral peak gradient, D 5 mm Hg Mitral E/A ratio, peak 1.1 Mitral valve area, LVOT continuity 2.1 cm^2 Tricuspid valve Value Reference Tricuspid regurg peak velocity (H) 3.2 m/sec <=2.8 Tricuspid peak RV-RA gradient 40 mm Hg Right atrium Value Reference RA area, ES, A4C (H) 21 cm^2 10 - 18 Systemic veins Value Reference Estimated RAP 3 mm Hg Right ventricle Value Reference TAPSE, 2D 2.5 cm1.7 - 3.1 RV pressure, S, DP 43 mm Hg RV s', lateral (H) 13.6 cm/sec 6.0 - 13.4 Legend: (L) and (H) temi values outside specified reference range. 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 Breast cancer (HCC) Chemotherapy induced diarrhea Chest pain Diabetes mellitus type 2 in obese (HCC) DVT (deep venous thrombosis) (HCC) Essential hypertension Fracture of right hip (HCC) Heel spur HLD (hyperlipidemia) Malignant neoplasm of both breasts (HCC) Mass of left breast Murmur, cardiac Nonrheumatic mitral valve regurgitation Nonrheumatic tricuspid (valve) insufficiency ZITA (obstructive sleep apnea) ZITA (obstructive sleep apnea) Osteoarthritis Presence of stent in coronary artery Pulmonary HTN (HCC) Past Surgical History: Past Surgical History: Procedure Laterality Date CARPAL TUNNEL RELEASE Right CHOLECYSTECTOMY HIP FRACTURE SURGERY Right 2019 JOINT REPLACEMENT Right MASTECTOMY, BILATERAL Bilateral two years ago, lymp nodes removed from right arm Allergy(ies): Allergies Allergen Reactions Dye [Iodides] Other (See Comments) skin was peeling Povidone-Iodine Pravastatin Sodium Rosuvastatin Calcium Simvastatin Family History: Family History Problem Relation Age of Onset No Known Problems Father Diabetes Sister Breast Cancer Sister Hypertension Sister Heart Disease Sister Pancreatic Cancer Sister Diabetes Brother Cancer Brother bone cancer Hypertension Brother Stroke Brother Social History: Social History Tobacco Use Smoking status: Never Smoker Smokeless tobacco: Never Used Substance Use Topics Alcohol use: Never Frequency: Never Binge frequency: Never Drug use: Never Portions of the information within this encounter were entered using an electronic dictation system. Best attempts were made to edit/proofread the information prior to note completion. Despite the review of information, some errors may remain. If there are questions related to the information contained within the note please contact the signing physician directly. I spent 25 minutes with the pt which involved more than 51% of the time in coordination of care, medical evaluation, review of records, and/or counseling of the pt regarding his/her condition/diseasestate/prognosis on the date of this note. * Alina Osborn OT - 02/13/2021 12:37 PM EDT Occupational Therapy Chart reviewed. Pt with discharge summary in Epic & active d/c orders; defer OT at this time. Will re-attempt if change in plan. Alina Osborn OTR/L * Joselyn Rees MD - 02/13/2021 4:30 AM EDT Images from the original note were not included. Cardiothoracic Surgery Progress Note 02/13/2021 5:54 AM Subjective: Admit Date: 02/02/2021 PCP: No primary care provider on file. Procedures CABG x3 (MAYS to LAD, SVG to OM, SVG to diagonal) 02/09 Interval History No acute events overnight. Afebrile. VSS. Maintaining SpO2 on CPAP overnight. Tolerating diet. PO intake 1500cc / 24H. No nausea or vomiting. Voiding without difficulty with diuresis yesterday. UOP 2900cc / 24H. Passing flatus. No BM. Ambulatory this morning. Objective: Vitals: Temp (24hrs), Av.4 F (36.9 C), Min:98.2 F (36.8 C), Max:98.7 F (37.1 C) BP 133/64 Pulse 80 Temp 98.7 F (37.1 C) (Oral) Resp 18 Ht 5' 5 (1.651 m) Wt 216 lb 9.6 oz (98.2 kg) SpO2 97% BMI 36.04 kg/m I/O: Date 02/13/21 0000 - 02/13/21 2359 Shift [id number] 1847-7706 4343-6204 24 Hour Total INTAKE P.O.(mL/kg/hr) 240 240 Shift Total(mL/kg) 240(2.4) 240(2.4) OUTPUT Urine(mL/kg/hr) 800 800 Shift Total(mL/kg) 800(8.1) 800(8.1) Weight (kg) 98.2 98.2 98.2 98.2 Patient Vitals for the past 96 hrs (Last 3 readings): Weight 02/13/21 0500 216 lb 9.6 oz (98.2 kg) 02/11/21 0600 225 lb 11.2 oz (102.4 kg) 02/10/21 0600 222 lb 7.1 oz (100.9 kg) Labs and Diagnostics: (reviewed in EMR) BMP: Recent Labs 02/11/21 0002 02/11/21 0002 02/12/21 0138 02/13/21 0405 NA 133* -- 137 137 K 3.2* < > 4.0 3.2* CL 98 -- 99 100 CO2 28 -- 31* 34* BUN 17 -- 19 20 CREATININE 0.80 -- 0.62 0.61 GLUCOSE 84 -- 145* 125* < > = values in this interval not displayed. . CBC: Recent Labs 02/12/21 0138 02/13/21 0405 WBC 17.2* 12.8* HGB 10.8* 10.2* PLT 232 288 INR: Lab Results Component Value Date PROTIME 12.7 02/09/2021 INR 1.2 02/09/2021 Medications: Scheduled Meds: metoprolol tartrate 25 mg Oral BID clopidogrel 75 mg Oral Daily insulin lispro 6 Units Subcutaneous TID WC insulin lispro 0-12 Units Subcutaneous TID insulin glargine 20 Units Subcutaneous QAM atorvastatin 10 mg Oral Nightly aspirin 81 mg Oral Daily enoxaparin 40 mg Subcutaneous Daily acetaminophen 1,000 mg Oral Q8H mupirocin Nasal BID polyethylene glycol 17 g Oral Daily sennosides-docusate sodium 2 tablet Oral Nightly sodium chloride flush 10 mL Intracatheter Q8H lidocaine 1 patch Transdermal Daily Continuous Infusions: sodium chloride 20 mL/hr at 02/09/21 1825 dextrose Home Meds: Prior to Admission medications Medication Sig Start Date End Date Taking? Authorizing Provider anastrozole (ARIMIDEX) 1 MG tablet Take 1 mg by mouth daily Yes Historical Provider, aspirin 81 MG chewable tablet Take 81 mg by mouth daily Yes Historical Provider, atenolol (TENORMIN) 50 MG tablet Take 50 mg by mouth daily Yes Historical Provider, atorvastatin (LIPITOR) 10 MG tablet Take 10 mg by mouth daily Yes Historical Provider, calcium citrate-vitamin D (CITRICAL + D) 315-250 MG-UNIT TABS per tablet Take 1 tablet by mouth 2 times daily (with meals) Yes Historical Provider, clopidogrel (PLAVIX) 75 MG tablet Take 75 mg by mouth daily For hearth cath today 02/02/2021 Yes Historical Provider, dicyclomine (BENTYL) 20 MG tablet Take 20 mg by mouth every 6 hours Yes Historical Provider, vitamin D (ERGOCALCIFEROL) 1.25 MG (97649 UT) CAPS capsule Take 50,000 Units by mouth once a week Mondays and fridays Yes Historical Provider, hydroCHLOROthiazide (HYDRODIURIL) 25 MG tablet Take 25 mg by mouth daily Yes Historical Provider, isosorbide mononitrate (IMDUR) 30 MG extended release tablet Take 30 mg by mouth daily Yes Historical Provider, metFORMIN (GLUCOPHAGE) 1000 MG tablet Take 1,000 mg by mouth 2 times daily (with meals) Yes Historical Provider, potassium chloride (MICRO-K) 10 MEQ extended release capsule Take 20 mEq by mouth 2 times daily YesHistorical Provider, ramipril (ALTACE) 2.5 MG capsule Take 2.5 mg by mouth daily Yes Historical Provider, diphenhydrAMINE (BENADRYL) 25 MG tablet Take 50 mg by mouth every 6 hours as needed for Itching Take at HS the night before a procedure Historical Provider, nitroGLYCERIN (NITROSTAT) 0.[address] 0.4 mg under the tongue every 5 minutes as needed for Chest pain up to max of 3 total doses. If no relief after 1 dose, call 911. Historical Provider, Physical Exam Constitutional: General: She is not in acute distress. Appearance: Normal appearance. She is not ill-appearing or diaphoretic. HENT: Head: Normocephalic and atraumatic. Right Ear: External ear normal. Left Ear: External ear normal. Nose: Nose normal. No congestion. Mouth/Throat: Mouth: Mucous membranes are moist. Pharynx: Oropharynx is clear. Eyes: General: Right eye: No discharge. Left eye: No discharge. Extraocular Movements: Extraocular movements intact. Neck: Musculoskeletal: Neck supple. No muscular tenderness. Comments: Right IJ Cordis Cardiovascular: Rate and Rhythm: Normal rate and regular rhythm. Heart sounds: Normal heart sounds. Comments: Median sternotomy incision C/D/I. Pulmonary: Effort: No respiratory distress. Breath sounds: Normal breath sounds. No wheezing. Abdominal: General: There is no distension. Palpations: Abdomen is soft. Tenderness: There is no abdominal tenderness. There is no guarding or rebound. Neurological: Mental Status: She is alert and oriented to person, place, and time. Sensory: No sensory deficit. Motor: No weakness. Psychiatric: Mood and Affect: Mood normal. Behavior: Behavior normal. Diet: DIET CARDIAC; Carb Control: 5 carb choices (75 gms)/meal; Low Sodium (2 GM) Problem List: Active Problems: Coronary artery disease involving [place] fork coronary artery CAD in [place] fork artery Class 2 severe obesity with serious comorbidity and body mass index (BMI) of 37.0 to 37.9 in adult (HCC) S/P CABG (coronary artery bypass graft) Resolved Problems: * No resolved hospital problems. * Assessment and Plan: 75-year-old female admitted with CAD and mild MR s/p 3-vessel CABG 02/09 Neuro - Pain control with scheduled Tylenol. Oxycodone / morphine PRN - Lidocaine patch to chest wall CV - CAD s/p CABG x3 - Home aspirin / Plavix / Lipitor continued. - Atenolol / Imdur held. Resume ramipril and HCTZ. - Lopressor 25mg BID with hold parameters. Pulmonary - CXR stable this morning - Net negative 1.4L with diuresis yesterday. - Hx ZITA. CPAP QHS. FEN/GI - Cardiac carb control low sodium diet - Zofran PRN nausea - Scheduled bowel regimen: Miralax / Senokot-S - K 3.2. Scheduled potassium chloride 20mEq BID initiated. - Electrolyte replacement as needed - Cr 0.61 from 0.62. Monitor. Heme - Hb 10.2 from 10.8. Monitor. - No indication for transfusion Endocrine - Stress hyperglycemia / Hx DM2. Scheduled Humalog / Lantus. Moderate SSI. - Blood glucose 120s. Monitor. - Endocrinology following. Appreciate recommendations. ID - WBC 12.8 from 17.2. Monitor. - Nasal Bactroban BID x4 days postop Musculoskeletal - Activity as tolerated with sternal precautions / Ambulate. - PT/OT. Recommend home with home health PT / Home with assist PRN Prophylaxis - DVT: SCDs / DAVIS hose / Lovenox Lines / Devices - Right IJ Cordis. Remove today. Disposition - Potential discharge home today Joselyn Rees MD Disclaimers: INFORMED CONSENT: The nature and purpose of the proposed treatment and/or procedure have been discussed. The risks and benefits of the proposed treatment or procedures have been reviewed. Alternatives have been reviewed in addition to the risks and benefits of not receiving treatments or undergoingprocedures. Pursuant to this discussion, the patient agrees to undergo the proposed treatment or procedure. Captured images seen in this note are not a substitute for a comprehensive interpretation of the entire data set as reflected by the interpreting physician with regard to radiology, echocardiography,and other diagnostic images. This note may have been dictated using [employer] Practice Edition 2.6 and/or [employer] Voice Recognition Feature. The document was proofread; however, unrecognized voice recognition truck sales manager errors may be present. Associated attestation - Maira Lao MD - 02/13/2021 9:05 AM EDT DOS: 02/13/2021 I personally performed a face to face diagnostic evaluation on this patient. I agree with the findings and plan of care as documented by the resident/ENTRY LEVEL ACCOUNTANT/WINDOWS SYSTEMS ENGINEER/PA, unless otherwise noted. Maira Lao MD Cardiothoracic Surgery * Miles White MD - 02/12/2021 6:28 PM EDT Images from the original note were not included. Department of Internal Medicine Division of Endocrinology, Diabetes, & Metabolism Endocrinology Note Patient Name: Danii Wolfe : 1945 AGE: 75 y.o. Room/Bed: [place] [address] Admission Date: 02/02/2021 3:33 PM Consult Date: 02/10/21 Visit Date: 02/12/2021 Reason for Endocrine Consult: Type 2 diabetes s/p CABG X 3 Provider/Team Requesting Consult: Dr Lao PCP: No primary care provider on file. Outpt It Security Administrator: no ASSESSMENT: Type 2 diabetes with hyperglycemia without mcfp insulin use s/p CABG Type 2 diabetes with CAD Obesity BMI 37.02 PLAN: Continue Lantus 20 units every morning Decrease the Humalog to 6 units before meals with medium dose correction Obtain blood glucose readings before meals and at bedtime Carb controlled diet Treat hypoglycemia per protocol Target BG on General floors: FBG <140 and random BG <180 Target BG for ICU <180 Patient was counseled about the importance of diabetes management. Patient was counseled about the importance of following a healthy diet and exercise. Patient was counseled about hypoglycemia symptoms and management. Discussed option of Trulicity and patient would like to try it. Discussed benefits of Trulicity on weight and heart. I have counseled the patient about the transient gastrointestinal side effects andabout the infrequent risk of pancreatitis and medullary thyroid carcinoma ANTICIPATED ENDOCRINE HOME GOING RECOMMENDATIONS: Optimized for Discharge from Endocrine standpoint: yes Home Going Endocrine Rx Recommendations-- Metformin 1000 mg twice a day Trulicity 0.75 mg subcutaneous weekly Outpt Follow Up-- Pt will follow with PCP or [facility] Appointment request sent to Endo office Staff: No SUBJECTIVE/HPI: CHIEF COMPLAINT: CAD s/p CABG x 3 Type of DM: 2 Onset of DM: 3 years ago, DX on Home DM Medication Regimen: Metformin 1000 mg BID DM control (last A1c/glucose data): Lab Results Component Value Date LABA1C 8.2 (A) 02/04/2021 Lab Results Component Value Date EAG 189 02/04/2021 Denies nausea, vomiting, CP, shortness of breath Reported decreased appetite so she has not been getting her scheduled Humalog Review of Systems Constitutional: Negative for chills and fever. HENT: Negative for sinus pressure, trouble swallowing and voice change. Eyes: Negative for pain, redness, itching and visual disturbance. Respiratory: Negative for apnea, cough, chest tightness and shortness of breath. Cardiovascular: Negative for chest pain, palpitations and leg swelling. Gastrointestinal: Negative for abdominal pain, constipation, diarrhea, nausea and vomiting. Endocrine: Negative for cold intolerance, heat intolerance, polydipsia and polyphagia. Skin: Negative for rash. Neurological: Negative for dizziness, weakness and numbness. Psychiatric/Behavioral: Negative for sleep disturbance. The patient is not nervous/anxious. OBJECTIVE: Vitals: 02/12/21 0600 02/12/21 0813 02/12/21 1210 02/12/21 1600 BP: (!) 160/76 (!) 148/79 (!) 113/55 (!) 127/49 Pulse: 84 90 83 88 Resp: 20 Temp: 98.3 F (36.8 C) 98.3 F (36.8 C) 98.4 F (36.9 C) TempSrc: Oral Oral Oral SpO2: 97% 93% 94% Weight: Height: Physical Exam Constitutional: Appearance: She is well-developed. She is obese. HENT: Head: Normocephalic and atraumatic. Eyes: General: Right eye: No discharge. Left eye: No discharge. Neck: Thyroid: No thyromegaly. Trachea: No tracheal deviation. Cardiovascular: Rate and Rhythm: Normal rate and regular rhythm. Pulmonary: Breath sounds: No wheezing or rales. Chest: Chest wall: No tenderness. Abdominal: General: There is no distension. Tenderness: There is no abdominal tenderness. There is no rebound. Comments: obese Musculoskeletal: General: No tenderness. Right lower leg: No edema. Left lower leg: No edema. Skin: Findings: No rash. Neurological: Mental Status: She is alert and oriented to person, place, and time. Psychiatric: Mood and Affect: Mood normal. Behavior: Behavior normal. Thought Content: Thought content normal. 24 hour intake/output: Intake/Output Summary (Last 24 hours) at 02/12/2021 1828 Last data filed at 02/12/2021 0530 Gross per 24 hour Intake Output 1255 ml Net -1255 ml Diet: DIET CARDIAC; Carb Control: 5 carb choices (75 gms)/meal; Low Sodium (2 GM) Medications (as per EMR): HomeMeds: Prior to Admission medications Medication Sig Start Date End Date Taking? Authorizing Provider anastrozole (ARIMIDEX) 1 MG tablet Take 1 mg by mouth daily Yes Historical Provider, aspirin 81 MG chewable tablet Take 81 mg by mouth daily Yes Historical Provider, atenolol (TENORMIN) 50 MG tablet Take 50 mg by mouth daily Yes Historical Provider, atorvastatin (LIPITOR) 10 MG tablet Take 10 mg by mouth daily Yes Historical Provider, calcium citrate-vitamin D (CITRICAL + D) 315-250 MG-UNIT TABS per tablet Take 1 tablet by mouth 2 times daily (with meals) Yes Historical Provider, clopidogrel (PLAVIX) 75 MG tablet Take 75 mg by mouth daily For hearth cath today 02/02/2021 Yes Historical Provider, dicyclomine (BENTYL) 20 MG tablet Take 20 mg by mouth every 6 hours Yes Historical Provider, vitamin D (ERGOCALCIFEROL) 1.25 MG (05246 UT) CAPS capsule Take 50,000 Units by mouth once a week Mondays and fridays Yes Historical Provider, hydroCHLOROthiazide (HYDRODIURIL) 25 MG tablet Take 25 mg by mouth daily Yes Historical Provider, isosorbide mononitrate (IMDUR) 30 MG extended release tablet Take 30 mg by mouth daily Yes Historical Provider, metFORMIN (GLUCOPHAGE) 1000 MG tablet Take 1,000 mg by mouth 2 times daily (with meals) Yes Historical Provider, potassium chloride (MICRO-K) 10 MEQ extended release capsule Take 20 mEq by mouth 2 times daily YesHistorical Provider, ramipril (ALTACE) 2.5 MG capsule Take 2.5 mg by mouth daily Yes Historical Provider, diphenhydrAMINE (BENADRYL) 25 MG tablet Take 50 mg by mouth every 6 hours as needed for Itching Take at HS the night before a procedure Historical Provider, nitroGLYCERIN (NITROSTAT) 0.[address] 0.4 mg under the tongue every 5 minutes as needed for Chest pain up to max of 3 total doses. If no relief after 1 dose, call 911. Historical Provider, Scheduled Meds: metoprolol tartrate 25 mg Oral BID clopidogrel 75 mg Oral Daily insulin lispro 0-12 Units Subcutaneous TID WC insulin lispro 8 Units Subcutaneous TID WC insulin glargine 20 Units Subcutaneous QAM atorvastatin 10 mg Oral Nightly aspirin 81 mg Oral Daily enoxaparin 40 mg Subcutaneous Daily acetaminophen 1,000 mg Oral Q8H mupirocin Nasal BID polyethylene glycol 17 g Oral Daily sennosides-docusate sodium 2 tablet Oral Nightly sodium chloride flush 10 mL Intracatheter Q8H lidocaine 1 patch Transdermal Daily Continuous Infusions: sodium chloride 20 mL/hr at 02/09/21 1825 dextrose PRN Meds:sodium chloride flush, ondansetron, morphine OR morphine, potassium chloride, potassium chloride, magnesium sulfate, calcium gluconate, albumin human, sodium chloride, glucose, dextrose,glucagon (rDNA), dextrose, insulin regular, sodium chloride flush, oxyCODONE OR oxyCODONE Diagnostic Workup: I reviewed pertinent Laboratory results, Radiographic results, and Other Clinical Notes at the timeof today's encounter. BMP: Recent Labs 02/10/21 0002 02/11/21 0002 02/11/21 0848 02/12/21 0138 NA 143 133* -- 137 K 3.9 3.2* 4.4 4.0 CL 109* 98 -- 99 CO2 24 28 -- 31* BUN 18 17 -- 19 CREATININE 0.79 0.80 -- 0.62 GLUCOSE 160* 84 -- 145* Glucose: Recent Labs 02/11/21 0811 02/11/21 0932 02/11/21 1209 02/11/21 1407 02/11/21 1740 02/12/21 0906 02/12/21 1302 02/12/21 1605 POCGLU 190* 225* 144* 188* 128* 200* 175* 138* HgbA1C: No results for input(s): LABA1C in the last 72 hours. Hepatic: No results for input(s): ALKPHOS, ALT, AST, PROT, BILITOT, BILIDIR, LABALBU in the last 72hours. Lipids: No results for input(s): CHOL, TRIG, HDL, LDLCALC in the last 72 hours. Invalid input(s): LDL TSH: No results found for: TSH, H3HFNMU, E3NAUAW, THYROIDAB, FT3, T4FREE Radiology reportsas per the Radiologist Radiology: Echo Complete 2d W Doppler W Color Result Date: 02/03/2021 TRANSTHORACIC ECHOCARDIOGRAM PATIENT: Danii Wolfe STUDY DATE: 02/03/2021 : 1945 AGE: 75 HT/WT: 165.1 cm (65 102.1 kg (224.5 in) lb) GENDER: F BP: 157 / 82 LOCATION: [facility] PATIENT Inpatient main STATUS: *ORDERING PHYSICIAN: * Koffi Bates *READING PHYSICIAN: * Chastity Borden MD *MECHANICAL MANUFACTURING TECHNICIAN: * Shana Riley INDICATIONS: Assess prior to CABG surgery. CONCLUSIONS SUMMARY: 1.Left ventricle: The cavity size is normal. Wall thickness is normal. Systolic function is normal bythe biplane method of disks. The estimated ejection fraction is 64%. There are no regional wall motion abnormalities. Although strain assessment was abnormal in the basal and mid lateral [place], no clear evidence for hypokinesis of the region. Left ventricular diastolic function parameters are normal for the patient's age. E/e' average: 8.7 2. No significant valve disease. STUDY DATA: Complete transthoracic echocardiogram. Procedure: Image quality was good. M-mode, complete 2D, strain rate, complete spectral Doppler, and color flow Doppler images were acquired and archived for permanent storage and are available for subsequent review. Study status: Routine. Patient status: Inpatient. ECG RHYTHM: NSR FINDINGS LEFT VENTRICLE: Average LV global longitudinal strain is -21. The cavity size is normal. Wall thickness is normal. Systolic function is normal by the biplane method of disks. The estimated ejection fraction is 64%. There are no regional wall motion abnormalities. Although strain assessment was abnormal in the basal and mid lateral [place], no clear evidence for hypokinesis of the region. Left ventricular diastolic function parameters are normal for the patient's age. E/e' average: 8.7 RIGHT VENTRICLE: The cavity size is normal. Systolic function is normal. Right ventricular systolic pressure is mildly increased. RVSP = 43 mm Hg assuming RAP = 3 mm Hg, VENTRICULAR SEPTUM: There is no evidence of a ventricular septal defect. LEFT ATRIUM: The atrium is normal in size. LEYLA = 31 ml/m2. RIGHT ATRIUM: The atrium is normal in size. ATRIAL SEPTUM: Color Doppler shows no shunt. MITRAL VALVE: Moderately calcified annulus. Doppler: Thereis mild, 1+ regurgitation. The valve area (LVOT continuity) is 2.1 cm^2. The mean diastolic gradient is 1 mm Hg. The peak diastolic gradient is 5 mm Hg. AORTIC VALVE: Structurally normal valve. Abisai miller. Doppler: There is no regurgitation. The peak systolic gradient is 11 mm Hg. The peak systolicvelocity is 1.7 m/sec. TRICUSPID VALVE: Structurally normal valve. Doppler: There is mild, 1+ regurgitation. PULMONIC VALVE: Doppler: There is mild, 1+ regurgitation. AORTA: The aorta is normal. PULMONARY ARTERY: Main pulmonary artery: Normal. PERICARDIUM: There is no pericardial effusion. SYSTEMICVEINS: Inferior vena cava: The vessel is normal. The IVC collapses by greater than 50% with inspiration. Measurements Value Reference Aortic root ID 3.3 cm <4.3 Aortic root ID, STJ, ED 3.1 cm 2.0 - 3.2 Aortic root ID/bsa, STJ, ED 1.4 cm/m^2 1.1 - 1.9 Value Reference Ascending aorta ID, A-P, S 3.6 cm Ascending aorta ID/bsa, A-P, S 1.6 cm/m^2 Left ventricle Value Reference GLS, 2D 20.20 % LV ID, ED (H) 5.4 cm 3.8 - 5.2 LV ID, ES 3.2 cm 2.2 - 3.5 LV ID/bsa, ED 2.4 cm/m^2 2.3 - 3.1 LV ID/bsa, ES 1.5 cm/m^2 1.3 - 2.1 LV PW thickness, ED 0.9 cm 0.6 - 0.9 LV PW/LV ID ratio, ED 0.17 LV wall mass (H) 172 g 66 - 150 LV wall mass/bsa 78 g/m^2 44 - 88 Stroke volume/bsa, 1-p A2C 40.6 ml/m^2 LV end-diastolic volume, 1-p A4C 115 ml 48 - 140 LV end-systolic volume, 1-p A4C 43 ml 12 - 60 LV end-diastolic volume, 2-p (H) 131 ml 46 - 106 LV end-systolic volume, 2-p (H) 47 ml 14 - 42 LV ejection fraction, 2-p 64 % 54 - 74 LV E/e', lateral 7.1 LV E/e', medial 11 LV E/e', average 8.7 Ventricular septum Value Reference IVS thickness, ED 0.8 cm0.6 - 0.9 LVOT Value Reference LVOT ID, A-P 1.9 cm LVOT mean velocity, S 0.6 m/sec LVOT peak gradient, S 6 mm Hg Stroke volume (SV), LVOT DP 61 ml Stroke index (SV/bsa), LVOT DP 28 ml/m^2 Aortic valve Value Reference Aortic valve peak velocity,S 1.7 m/sec Aortic peak gradient, S 11 mm Hg Left atrium Value Reference LA volume/bsa, ES, 2-p 29 ml/m^2 16 - 34 Mitral valve Value Reference Mitral E-wave peak velocity 0.7 m/sec Mitral A-wave peak velocity 0.6 m/sec Mitral deceleration time 211 ms Mitral mean gradient, D 1 mm Hg Mitral peak gradient, D 5 mm Hg Mitral E/A ratio, peak 1.1 Mitral valve area, LVOT continuity 2.1 cm^2 Tricuspid valve Value Reference Tricuspid regurg peak velocity (H) 3.2 m/sec <=2.8 Tricuspid peak RV-RA gradient 40 mm Hg Right atrium Value Reference RA area, ES, A4C (H) 21 cm^2 10 - 18 Systemic veins Value Reference Estimated RAP 3 mm Hg Right ventricle Value Reference TAPSE, 2D 2.5 cm1.7 - 3.1 RV pressure, S, DP 43 mm Hg RV s', lateral (H) 13.6 cm/sec 6.0 - 13.4 Legend: (L) and (H) temi values outside specified reference range. 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 Breast cancer (HCC) Chemotherapy induced diarrhea Chest pain Diabetes mellitus type 2 in obese (HCC) DVT (deep venous thrombosis) (HCC) Essential hypertension Fracture of right hip (HCC) Heel spur HLD (hyperlipidemia) Malignant neoplasm of both breasts (HCC) Mass of left breast Murmur, cardiac Nonrheumatic mitral valve regurgitation Nonrheumatic tricuspid (valve) insufficiency ZITA (obstructive sleep apnea) ZITA (obstructive sleep apnea) Osteoarthritis Presence of stent in coronary artery Pulmonary HTN (HCC) Past Surgical History: Past Surgical History: Procedure Laterality Date CARPAL TUNNEL RELEASE Right CHOLECYSTECTOMY HIP FRACTURE SURGERY Right 2019 JOINT REPLACEMENT Right MASTECTOMY, BILATERAL Bilateral two years ago, lymp nodes removed from right arm Allergy(ies): Allergies Allergen Reactions Dye [Iodides] Other (See Comments) skin was peeling Povidone-Iodine Pravastatin Sodium Rosuvastatin Calcium Simvastatin Family History: Family History Problem Relation Age of Onset No Known Problems Father Diabetes Sister Breast Cancer Sister Hypertension Sister Heart Disease Sister Pancreatic Cancer Sister Diabetes Brother Cancer Brother bone cancer Hypertension Brother Stroke Brother Social History: Social History Tobacco Use Smoking status: Never Smoker Smokeless tobacco: Never Used Substance Use Topics Alcohol use: Never Frequency: Never Binge frequency: Never Drug use: Never Portions of the information within this encounter were entered using an electronic dictation system. Best attempts were made to edit/proofread the information prior to note completion. Despite the review of information, some errors may remain. If there are questions related to the information contained within the note please contact the signing physician directly. I spent 25 minutes with the pt which involved more than 51% of the time in coordination of care, medical evaluation, review of records, and/or counseling of the pt regarding his/her condition/diseasestate/prognosis on the date of this note. * Kenzie Farrell, NATURAL RESOURCES INSTRUCTOR - 02/12/2021 1:18 PM EDT Physical Therapy Facility/Department: [facility] Daily Treatment Note NAME: Danii Wolfe : 1945 Date of Service: 02/12/2021 Discharge Recommendations: Home with Home health PT, Home with assist PRN PT Equipment Recommendations Equipment Needed: No Other: pt already owns walker and cane Assessment Body structures, Functions, Activity limitations: Decreased functional mobility ;Decreased posture;Increased pain;Decreased ADL status;Decreased balance;Decreased strength;Decreased safe awareness;Decreased endurance Assessment: Patient demonstrated improvements this date. She continues to be challenged with the UEplacement with sit to stand/stand to sit transfers. With cueing for technique, patient easily corrects and verbalizes she will continue to work on not using UE with transfers. Education on not putting too much weight on UE with acknowledgment. Patient performed stair training CGA without cueing. Ambulated with FWW with appropriate amount of UE weight distribution. P & C 1-9 performed with patient verbalizing understanding. Handout provided. Rec home w/ assist and home PT. Treatment Diagnosis: CAD s/p CABGx3 02/09 Prognosis: Good Decision Making: Medium Complexity REQUIRES PT FOLLOW UP: Yes Activity Tolerance Activity Tolerance: Patient Tolerated treatment well Patient Diagnosis(es): The encounter diagnosis was 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). has a past medical history of Atherosclerotic heart disease of [place] coronary artery without angina pectoris, Breast cancer (HCC), Chemotherapy induced diarrhea, Chest pain, Diabetes mellitus type 2in obese (HCC), DVT (deep venous thrombosis) (HCC), Essential hypertension, Fracture of right hip (HCC), Heel spur, HLD (hyperlipidemia), Malignant neoplasm of both breasts (HCC), Mass of left breast, Murmur, cardiac, Nonrheumatic mitral valve regurgitation, Nonrheumatic tricuspid (valve) insufficiency, ZITA (obstructive sleep apnea), ZITA (obstructive sleep apnea), Osteoarthritis, Presence of stent in coronary artery, and Pulmonary HTN (HCC). has a past surgical history that includes Mastectomy, bilateral (Bilateral); Hip fracture surgery (Right, 2019); Cholecystectomy; joint replacement (Right); and Carpal tunnel release (Right). Restrictions Restrictions/Precautions Restrictions/Precautions: Fall Risk Required Braces or Orthoses?: No Position Activity Restriction Sternal Precautions: No Pushing, No Pulling, 10# Lifting Restrictions Sternal Precautions: YES Other position/activity restrictions: tele Subjective General Chart Reviewed: Yes Additional Pertinent Hx: OA; breast CA w/ Bilat mastectomy; R hip Fx; T2DM Response To Previous Treatment: Patient with no complaints from previous session. Family / Caregiver Present: No Subjective Subjective: Patient in bed, pleasant and agreeable to therapy. RN in room and ok'd PT. Reported doing exercises in bed. verbalized wanting to try walking without the walker. Orientation Orientation Overall Orientation Status: Within Functional Limits Cognition Cognition Overall Cognitive Status: WFL Objective Bed mobility Bridging: Minimal assistance Rolling to Left: Minimal assistance Supine to Sit: Minimal assistance Sit to Supine: Minimal assistance Scooting: Minimal assistance Comment: Log roll technique utilized. Brandee to assist patient. Transfers Sit to Stand: Stand by assistance Stand to sit: Stand by assistance Comment: x 4. standby assist secondary to cueing for sternal precautions and not putting pressure through arms with transfers. Good recognition and understanding from patient not to use arms with demonstrated corrections with attempts. Ambulation Ambulation?: Yes WB Status: sternal precautions Ambulation 1 Surface: level tile Device: Standard Walker Assistance: Contact guard assistance Quality of Gait: decreased weight shifting; decreased step length & height; slow lola. Gait Deviations: Decreased step height;Decreased step length;Slow Lola Distance: 100ft x 1 with fww. 15ft x 1 with fww. 85ft x 1 no AD. Comments: seated break after stairs secondary to endurance. Patient verbalized want to try without walker, patient ambulated back to room ~85 without AD. patient mask donned for ambulation in rinaldi Stairs/Curb Stairs?: Yes Stairs # Steps : 1(patient has one step at home) Stairs Height: 6 Rails: Right ascending Assistance: Contact guard assistance Balance Comments: pt performed static standing ~2 minutes demonstrating good weight distribution through B LE while assessing for physiological changes. Exercises Upper Extremity: Patient performed P & C ex's #1-9 x 10 reps each. Cueing for slow and controlled with exercises. Education on staying within pain free range Comments: IS ~1000 mL x10 reps, cues for technique with encouragment to get to 1000ml Goals Short term goals Time Frame for Short term goals: 2 wks Short term goal 1: bed mobility min assist; met Short term goal 2: transfers indep; PROGRESSING Short term goal 3: amb 300' w/ least restrictive device mod indep; PROGRESSING Short term goal 4: negotiate 1 entry step w/ min assist; met Short term goal 5: indep w/ P&C exercises and IS;progressing Short term goal 6: pt to demonstrate understanding of home walking program; progressing Patient Goals Patient goals : return home Plan Plan Times per week: 5-7x Plan weeks: 2 Specific instructions for Next Treatment: progress gait, initiate P&C ex Current Treatment Recommendations: Strengthening, Balance Training, Functional Mobility Training, Transfer Training, ROM, Stair training, Gait Training, Endurance Training, Home Exercise Program, Safety Education & Training, Patient/Caregiver Education & Training, Equipment Evaluation, Education, & procurement Plan Comment: Cont PT POC Safety Devices Type of devices: All fall risk precautions in place, Call light within reach, Patient at risk for falls, Nurse notified Restraints Initially in place: No Therapy Time Individual Concurrent Group Co-treatment Time In 1210 Time Out 1249 Minutes 39 Timed Code Treatment Minutes: (TP, GT, FA) PPE donned per facility protocol Kenzie Farrell PTA * Joselyn Rees MD - 02/12/2021 4:33 AM EDT Images from the original note were not included. Cardiothoracic Surgery Progress Note 02/12/2021 6:57 AM Subjective: Admit Date: 02/02/2021 PCP: No primary care provider on file. Procedures CABG x3 (MAYS to LAD, SVG to OM, SVG to diagonal) 02/09 Interval History No acute events overnight. Afebrile. Hypertensive with SBP 120s-160s. VS otherwise stable. Maintaining SpO2 on room air. Pain well controlled. Denies dyspnea. Tolerating diet. No nausea or vomiting. Hernandez catheter in place. UOP 2425cc / 24H. Out of bed to chair and ambulatory. Mediastinal CT output 60cc / 24H. Left pleural CT output 90cc / 24H. Objective: Vitals: Temp (24hrs), Av.2 F (36.8 C), Min:98 F (36.7 C), Max:98.4 F (36.9 C) BP (!) 160/76 Pulse 84 Temp 98.4 F (36.9 C) (Oral) Resp 20 Ht 5' 5 (1.651 m) Wt 225 lb 11.2 oz (102.4 kg) SpO2 97% BMI 37.56 kg/m I/O: Date 02/12/21 0000 - 02/12/21 2359 Shift 1403-8098 1158-0113 3338-9344 24 Hour Total INTAKE Shift Total(mL/kg) OUTPUT Urine(mL/kg/hr) 850 850 Chest Tube 80 80 Shift Total(mL/kg) 930(9.1) 930(9.1) Weight (kg) 102.4 102.4 102.4 102.4 Patient Vitals for the past 96 hrs (Last 3 readings): Weight 02/11/21 0600 225 lb 11.2 oz (102.4 kg) 02/10/21 0600 222 lb 7.1 oz (100.9 kg) 02/09/21 0615 215 lb (97.5 kg) Labs and Diagnostics: (reviewed in EMR) BMP: Recent Labs 02/10/21 0002 02/11/21 0002 02/11/21 0848 02/12/21 0138 NA 143 133* -- 137 K 3.9 3.2* 4.4 4.0 CL 109* 98 -- 99 CO2 24 28 -- 31* BUN 18 -- 19 CREATININE 0.79 0.80 -- 0.62 GLUCOSE 160* 84 -- 145* . CBC: Recent Labs 02/11/21 0002 02/12/21 0138 WBC 14.6* 17.2* HGB 10.4* 10.8* PLT 187 232 INR: Lab Results Component Value Date PROTIME 12.7 02/09/2021 INR 1.2 02/09/2021 Medications: Scheduled Meds: insulin lispro 0-12 Units Subcutaneous TID WC insulin lispro 8 Units Subcutaneous TID insulin glargine 20 Units Subcutaneous QAM atorvastatin 10 mg Oral Nightly aspirin 81 mg Oral Daily enoxaparin 40 mg Subcutaneous Daily metoprolol tartrate 12.5 mg Oral BID acetaminophen 1,000 mg Oral Q8H mupirocin Nasal BID polyethylene glycol 17 g Oral Daily sennosides-docusate sodium 2 tablet Oral Nightly sodium chloride flush 10 mL Intracatheter Q8H lidocaine 1 patch Transdermal Daily Continuous Infusions: sodium chloride 20 mL/hr at 02/09/21 1825 dextrose Home Meds: Prior to Admission medications Medication Sig Start Date End Date Taking? Authorizing Provider anastrozole (ARIMIDEX) 1 MG tablet Take 1 mg by mouth daily Yes Historical Provider, aspirin 81 MG chewable tablet Take 81 mg by mouth daily Yes Historical Provider, atenolol (TENORMIN) 50 MG tablet Take 50 mg by mouth daily Yes Historical Provider, atorvastatin (LIPITOR) 10 MG tablet Take 10 mg by mouth daily Yes Historical Provider, calcium citrate-vitamin D (CITRICAL + D) 315-250 MG-UNIT TABS per tablet Take 1 tablet by mouth 2 times daily (with meals) Yes Historical Provider, clopidogrel (PLAVIX) 75 MG tablet Take 75 mg by mouth daily For hearth cath today 02/02/2021 Yes Historical Provider, dicyclomine (BENTYL) 20 MG tablet Take 20 mg by mouth every 6 hours Yes Historical Provider, vitamin D (ERGOCALCIFEROL) 1.25 MG (54330 UT) CAPS capsule Take 50,000 Units by mouth once a week Mondays and fridays Yes Historical Provider, hydroCHLOROthiazide (HYDRODIURIL) 25 MG tablet Take 25 mg by mouth daily Yes Historical Provider, isosorbide mononitrate (IMDUR) 30 MG extended release tablet Take 30 mg by mouth daily Yes Historical Provider, metFORMIN (GLUCOPHAGE) 1000 MG tablet Take 1,000 mg by mouth 2 times daily (with meals) Yes Historical Provider, potassium chloride (MICRO-K) 10 MEQ extended release capsule Take 20 mEq by mouth 2 times daily YesHistorical Provider, ramipril (ALTACE) 2.5 MG capsule Take 2.5 mg by mouth daily Yes Historical Provider, diphenhydrAMINE (BENADRYL) 25 MG tablet Take 50 mg by mouth every 6 hours as needed for Itching Take at HS the night before a procedure Historical Provider, nitroGLYCERIN (NITROSTAT) 0.[address] 0.4 mg under the tongue every 5 minutes as needed for Chest pain up to max of 3 total doses. If no relief after 1 dose, call 911. Historical Provider, Physical Exam Constitutional: General: She is not in acute distress. Appearance: Normal appearance. She is not ill-appearing or diaphoretic. HENT: Head: Normocephalic and atraumatic. Right Ear: External ear normal. Left Ear: External ear normal. Nose: Nose normal. No congestion. Mouth/Throat: Mouth: Mucous membranes are moist. Pharynx: Oropharynx is clear. Eyes: General: Right eye: No discharge. Left eye: No discharge. Extraocular Movements: Extraocular movements intact. Neck: Musculoskeletal: Neck supple. No muscular tenderness. Comments: Right IJ Cordis Cardiovascular: Rate and Rhythm: Normal rate and regular rhythm. Heart sounds: Normal heart sounds. Comments: Median sternotomy incision C/D/I. Mediastinal and left pleural chest tubes to water seal.Serosanguinous drainage. No air leak. Pulmonary: Effort: No respiratory distress. Breath sounds: Normal breath sounds. No wheezing. Abdominal: General: There is no distension. Palpations: Abdomen is soft. Tenderness: There is no abdominal tenderness. There is no guarding or rebound. Genitourinary: Comments: Hernandez catheter in place. Clear yellow urine. Neurological: Mental Status: She is alert and oriented to person, place, and time. Sensory: No sensory deficit. Motor: No weakness. Psychiatric: Mood and Affect: Mood normal. Behavior: Behavior normal. Diet: DIET CARDIAC; Carb Control: 5 carb choices (75 gms)/meal; Low Sodium (2 GM) Problem List: Active Problems: Coronary artery disease involving north fork coronary artery CAD in north fork artery Class 2 severe obesity with serious comorbidity and body mass index (BMI) of 37.0 to 37.9 in adult (HCC) S/P CABG (coronary artery bypass graft) Resolved Problems: * No resolved hospital problems. * Assessment and Plan: 75-year-old female admitted with CAD and mild MR s/p 3-vessel CABG 02/09 Neuro - Pain control with scheduled Tylenol. Oxycodone / morphine PRN - Lidocaine patch to chest wall CV - CAD s/p CABG x3 - Home aspirin / Lipitor continued. Plavix resumed today. - Atenolol / Imdur / HCTZ / ramipril held. Ramipril to be resumed prior to discharge. - Lopressor dose increased from 12.5 to 25mg BID with hold parameters. - Pacing wires removed this morning Pulmonary - CXR stable this morning - Chest tubes removed this morning - Lasix 20mg IV x2 doses today - Hx ZITA. CPAP QHS. FEN/GI - Cardiac carb control low sodium diet - Zofran PRN nausea - Scheduled bowel regimen: Miralax / Senokot-S - Electrolyte replacement as needed - Cr 0.62 from 0.8. Monitor. - Hernandez catheter removed this morning Heme - Hb 10.8 from 10.4. Monitor. - No indication for transfusion Endocrine - Stress hyperglycemia / Hx DM2. Scheduled Humalog / Lantus. Moderate SSI. - Blood glucose 140s-200s. Monitor. - Endocrinology following. Appreciate recommendations. ID - WBC 17.2 from 14.6. Monitor. - Nasal Bactroban BID x4 days postop Musculoskeletal - Activity as tolerated with sternal precautions / Ambulate. - PT/OT. Recommend home with home health PT / 24H supervision or assist Prophylaxis - DVT: SCDs / DAVIS hose / Lovenox Lines / Devices - Right IJ Cordis - Chest tubes x2. Removed today. - Hernandez catheter. Removed today. Disposition - Continue care in [facility] - Plan for discharge home with home care when medically appropriate Joselyn Rees MD Disclaimers: INFORMED CONSENT: The nature and purpose of the proposed treatment and/or procedure have been discussed. The risks and benefits of the proposed treatment or procedures have been reviewed. Alternatives have been reviewed in addition to the risks and benefits of not receiving treatments or undergoingprocedures. Pursuant to this discussion, the patient agrees to undergo the proposed treatment or procedure. Captured images seen in this note are not a substitute for a comprehensive interpretation of the entire data set as reflected by the interpreting physician with regard to radiology, echocardiography,and other diagnostic images. This note may have been dictated using [employer] Practice Edition 2.6 and/or [employer] Voice Recognition Feature. The document was proofread; however, unrecognized voice recognition truck sales manager errors may be present. Associated attestation - Maira Lao MD - 02/12/2021 5:55 PM EDT DOS: 02/12/2021 I personally performed a face to face diagnostic evaluation on this patient. I agree with the findings and plan of care as documented by the resident/ENTRY LEVEL ACCOUNTANT/WINDOWS SYSTEMS ENGINEER/PA, unless otherwise noted. Maira Lao MD Cardiothoracic Surgery * Jennifer Zamora RCP - 02/11/2021 11:31 PM EDT Offered assistance to place patient on home PAP, stated she wants to pass on wearing the PAP tonight. Patient was resting comfortably on 1L, sats 97%. No respiratory distress. * Umer Lomas, NATURAL RESOURCES INSTRUCTOR - 02/11/2021 12:05 PM EDT Physical Therapy Facility/Department: [facility] Daily Treatment Note NAME: Danii Wolfe : 1945 Date of Service: 02/11/2021 Discharge Recommendations: Continue to assess pending progress, 24 hour supervision or assist, Home with Home health PT PT Equipment Recommendations Other: TBD Assessment Body structures, Functions, Activity limitations: Decreased functional mobility ;Decreased posture;Increased pain;Decreased ADL status;Decreased balance;Decreased strength;Decreased safe awareness;Decreased endurance Assessment: pt limited by decreased functional strength/endurance and increased dizziness w/ ambulation today. pt able to increase gait distance using rollator; Min x1 for balance. pt able to stand x2 trials from various surface heights w/ Min/Mod x1. pt required minimal cues for sternal precautions during mobility training today. pt should progress to Home w/ assist and Home PT once pain and dizziness better managed. Treatment Diagnosis: CAD s/p CABGx3 02/09 Specific instructions for Next Treatment: progress gait, initiate P&C ex Prognosis: Good Decision Making: Medium Complexity REQUIRES PT FOLLOW UP: Yes Activity Tolerance Activity Tolerance: Patient limited by fatigue;Patient limited by pain;Patient limited by endurance Activity Tolerance: pt limited by increased dizziness/nausea during ambulation today Patient Diagnosis(es): The encounter diagnosis was 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). has a past medical history of Atherosclerotic heart disease of north fork coronary artery without angina pectoris, Breast cancer (HCC), Chemotherapy induced diarrhea, Chest pain, Diabetes mellitus type 2in obese (HCC), DVT (deep venous thrombosis) (HCC), Essential hypertension, Fracture of right hip (HCC), Heel spur, HLD (hyperlipidemia), Malignant neoplasm of both breasts (HCC), Mass of left breast, Murmur, cardiac, Nonrheumatic mitral valve regurgitation, Nonrheumatic tricuspid (valve) insufficiency, ZITA (obstructive sleep apnea), ZTIA (obstructive sleep apnea), Osteoarthritis, Presence of stent in coronary artery, and Pulmonary HTN (HCC). has a past surgical history that includes Mastectomy, bilateral (Bilateral); Hip fracture surgery (Right, 2019); Cholecystectomy; joint replacement (Right); and Carpal tunnel release (Right). Restrictions Restrictions/Precautions Restrictions/Precautions: Fall Risk Required Braces or Orthoses?: No Position Activity Restriction Sternal Precautions: No Pushing, No Pulling, 10# Lifting Restrictions Sternal Precautions: YES Other position/activity restrictions: external pacer, 2 L/min O2, chest tubes x2 Subjective General Chart Reviewed: Yes Additional Pertinent Hx: OA; breast CA w/ Bilat mastectomy; R hip Fx; T2DM Response To Previous Treatment: Patient with no complaints from previous session. Family / Caregiver Present: No Referring Practitioner: NATURAL RESOURCES INSTRUCTOR wore N95 mask, gloves during PT Rx. Subjective Subjective: pt in chair, agreeable to PT. nsg cleared pt for PT. Pain Screening Patient Currently in Pain: Yes(pt reports chest tube pain pre and post PT Rx.) Pain Assessment Pain Frequency: Continuous Clinical Progression: Not changed Vital Signs Patient Currently in Pain: Yes(pt reports chest tube pain pre and post PT Rx.) Orientation Orientation Overall Orientation Status: Within Functional Limits Cognition Objective Bed mobility Bridging: Moderate assistance;2 Person assistance(to HOB; pt able to push w/ BLE) Rolling to Left: Minimal assistance Supine to Sit: Unable to assess Sit to Supine: Moderate assistance Scooting: Moderate assistance Comment: HOB elevated. pt required assist to elevate BLE onto bed surface. Transfers Sit to Stand: Minimal Assistance Stand to sit: Minimal Assistance Stand Pivot Transfers: Minimal Assistance;Moderate Assistance(toilet transfer) Comment: x1 from chair; Min/Mod x1 d/t slight knee buckling w/ initial stand; Mod x1 from toilet cues not to use grab bar to push/pull Ambulation Ambulation?: Yes WB Status: sternal precautions More Ambulation?: Yes Ambulation 1 Surface: level tile Device: Rollator Other Apparatus: O2(CT x2; hernandez) Assistance: Minimal assistance Quality of Gait: wide SHAN; decreased weight shifting; decreased step length & height; slow lola. Gait Deviations: Slow Lola;Increased SHAN;Decreased step length;Decreased step height Distance: 14ft Comments: seated break on toilet Ambulation 2 Surface - 2: level tile Device 2: Rollator Other Apparatus 2: O2(CT; hernandez) Assistance 2: Minimal assistance;Moderate assistance Quality of Gait 2: see above Gait Deviations: Slow Lola;Increased SHAN;Decreased step length;Decreased step height Distance: 20ft Comments: pt requested to sit d/t increased dizziness Stairs/Curb Stairs?: No Balance Posture: Fair Sitting - Static: Good;- Sitting - Dynamic: Fair;+ Standing - Static: Fair Standing - Dynamic: Fair Comments: pt performed x2 stands w/ cues for lateral weight shifting to narrow SHAN for improved balance and weight shifting during ambulation; Min x1 Exercises Gluteal Sets: x5 rep Knee Long Arc Quad: x10 BLE Ankle Pumps: x20 rep BLE Upper Extremity: pt unable to perform P&C d/t increased dizziness/nausea post gait. Other exercises Other exercises?: No G-Code OutComes Score AM-PAC Score Goals Short term goals Time Frame for Short term goals: 2 wks Short term goal 1: bed mobility min assist; PROGRESSING Short term goal 2: transfers indep; PROGRESSING Short term goal 3: amb 300' w/ least restrictive device mod indep; PROGRESSING SLOWLY Short term goal 4: negotiate 1 entry step w/ min assist; NOT ADDRESSED Short term goal 5: indep w/ P&C exercises and IS; NOT ADDRESSED Short term goal 6: pt to demonstrate understanding of home walking program; NOT ADDRESSED Patient Goals Patient goals : return home Plan Plan Times per week: 5-7x Plan weeks: 2 Specific instructions for Next Treatment: progress gait, initiate P&C ex Current Treatment Recommendations: Strengthening, Balance Training, Functional Mobility Training, Transfer Training, ROM, Stair training, Gait Training, Endurance Training, Home Exercise Program, Safety Education & Training, Patient/Caregiver Education & Training, Equipment Evaluation, Education, & procurement Plan Comment: Cont PT POC Safety Devices Type of devices: All fall risk precautions in place, Call light within reach, Gait belt, Patient atrisk for falls, Left in bed, Nurse notified Therapy Time Individual Concurrent Group Co-treatment Time In 1124 Time Out 1149 Minutes 25 Timed Code Treatment Minutes: 25 Minutes(FA x2) Umer Lomas PTA * Darnell Stanley APRN - ENTRY LEVEL ACCOUNTANT - 02/11/2021 8:51 AM EDT Images from the original note were not included. Department of Internal Medicine Division of Endocrinology, Diabetes, & Metabolism Endocrinology Note Patient Name: Danii Wolfe : 1945 AGE: 75 y.o. Room/Bed: [place] [address] Admission Date: 02/02/2021 3:33 PM Consult Date: 02/10/21 Visit Date: 02/11/2021 Reason for Endocrine Consult: Type 2 diabetes s/p CABG X 3 Provider/Team Requesting Consult: Dr Lao PCP: No primary care provider on file. Outpt It Security Administrator: no ASSESSMENT: Type 2 diabetes with hyperglycemia s/p CABG POD 2 Type 2 diabetes with CAD Obesity BMI 37.02 PLAN: 1. Start Lantus 20 units now and every am 2. Stop insulin gtt 1 hour after Lantus given 3. Start Humalog 8 units TID with meals 4. Start humalog mod dose ISS 5. Check BG ac and hs 6. If hypoglycemia occurs treat per protocol 7. Will follow and adjust as needed ANTICIPATED ENDOCRINE HOME GOING RECOMMENDATIONS: Optimized for Discharge from Endocrine standpoint: No Home Going Endocrine Rx Recommendations-- Metformin and basal vs GLP 1 pending coverage Outpt Follow Up-- No. Pt will follow with PCP Appointment request sent to Endo office Staff: No SUBJECTIVE/HPI: CHIEF COMPLAINT: CAD s/p CABG x 3 The patient is a 75 y.o. female who presents with chest pain and shortness of breath over the last few months, underwent outpatient cardiac catheterization at [facility], found to have multivessel CAD, mild mitral reguritation. Pt admitted 02/02. Pt underwent CABG x 3 POD 2 Type of DM: 2 Onset of DM: 3 years ago, DX on BW Home DM Medication Regimen: Metformin 1000 mg BID DM control (last A1c/glucose data): Lab Results Component Value Date LABA1C 8.2 (A) 02/04/2021 Lab Results Component Value Date EAG 189 02/04/2021 Pt up in chair recently ate BF Denies nausea, vomiting, CP, shortness of breath On insulin gtt BG 190 this am after BF Review of Systems Constitutional: Negative for chills and fever. HENT: Negative for sinus pressure, trouble swallowing and voice change. Eyes: Negative for pain, redness, itching and visual disturbance. Respiratory: Negative for apnea, cough, chest tightness and shortness of breath. Cardiovascular: Negative for chest pain, palpitations and leg swelling. Gastrointestinal: Negative for abdominal pain, constipation, diarrhea, nausea and vomiting. Endocrine: Negative for cold intolerance, heat intolerance, polydipsia and polyphagia. Skin: Negative for rash. Neurological: Negative for dizziness, weakness and numbness. Psychiatric/Behavioral: Negative for sleep disturbance. The patient is not nervous/anxious. OBJECTIVE: Vitals: 02/11/21 0600 02/11/21 0700 02/11/21 0800 02/11/21 0808 BP: (!) 148/59 (!) 129/58 (!) 164/61 124/74 Pulse: 76 74 76 77 Resp: Temp: TempSrc: SpO2: 98% 94% 94% 92% Weight: 225 lb 11.2 oz (102.4 kg) Height: Physical Exam Constitutional: Appearance: She is well-developed. HENT: Head: Normocephalic and atraumatic. Eyes: General: Right eye: No discharge. Neck: Thyroid: No thyromegaly. Trachea: No tracheal deviation. Cardiovascular: Rate and Rhythm: Normal rate and regular rhythm. Comments: CT's intact Pulmonary: Breath sounds: No wheezing or rales. Chest: Chest wall: No tenderness. Abdominal: General: There is no distension. Tenderness: There is no abdominal tenderness. There is no rebound. Comments: obese Musculoskeletal: General: No tenderness. Skin: Findings: No rash. Neurological: Mental Status: She is oriented to person, place, and time. Comments: Foot Exam: 2+pulses. No wounds. 24 hour intake/output: Intake/Output Summary (Last 24 hours) at 02/11/2021 0852 Last data filed at 02/11/2021 0700 Gross per 24 hour Intake 2426 ml Output 1591 ml Net 835 ml Diet: DIET CARDIAC; Carb Control: 5 carb choices (75 gms)/meal; Low Sodium (2 GM) Medications (as per EMR): HomeMeds: Prior to Admission medications Medication Sig Start Date End Date Taking? Authorizing Provider anastrozole (ARIMIDEX) 1 MG tablet Take 1 mg by mouth daily Yes Historical Provider, aspirin 81 MG chewable tablet Take 81 mg by mouth daily Yes Historical Provider, atenolol (TENORMIN) 50 MG tablet Take 50 mg by mouth daily Yes Historical Provider, atorvastatin (LIPITOR) 10 MG tablet Take 10 mg by mouth daily Yes Historical Provider, calcium citrate-vitamin D (CITRICAL + D) 315-250 MG-UNIT TABS per tablet Take 1 tablet by mouth 2 times daily (with meals) Yes Historical Provider, clopidogrel (PLAVIX) 75 MG tablet Take 75 mg by mouth daily For hearth cath today 02/02/2021 Yes Historical Provider, dicyclomine (BENTYL) 20 MG tablet Take 20 mg by mouth every 6 hours Yes Historical Provider, vitamin D (ERGOCALCIFEROL) 1.25 MG (46549 UT) CAPS capsule Take 50,000 Units by mouth once a week Mondays and fridays Yes Historical Provider, hydroCHLOROthiazide (HYDRODIURIL) 25 MG tablet Take 25 mg by mouth daily Yes Historical Provider, isosorbide mononitrate (IMDUR) 30 MG extended release tablet Take 30 mg by mouth daily Yes Historical Provider, metFORMIN (GLUCOPHAGE) 1000 MG tablet Take 1,000 mg by mouth 2 times daily (with meals) Yes Historical Provider, potassium chloride (MICRO-K) 10 MEQ extended release capsule Take 20 mEq by mouth 2 times daily YesHistorical Provider, ramipril (ALTACE) 2.5 MG capsule Take 2.5 mg by mouth daily Yes Historical Provider, diphenhydrAMINE (BENADRYL) 25 MG tablet Take 50 mg by mouth every 6 hours as needed for Itching Take at HS the night before a procedure Historical Provider, nitroGLYCERIN (NITROSTAT) 0.[address] 0.4 mg under the tongue every 5 minutes as needed for Chest pain up to max of 3 total doses. If no relief after 1 dose, call 911. Historical Provider, Scheduled Meds: furosemide 20 mg Intravenous BID atorvastatin 10 mg Oral Nightly aspirin 81 mg Oral Daily enoxaparin 40 mg Subcutaneous Daily metoprolol tartrate 12.5 mg Oral BID acetaminophen 1,000 mg Oral Q8H mupirocin Nasal BID polyethylene glycol 17 g Oral Daily sennosides-docusate sodium 2 tablet Oral Nightly sodium chloride flush 10 mL Intracatheter Q8H lidocaine 1 patch Transdermal Daily Continuous Infusions: sodium chloride 20 mL/hr at 02/09/21 1825 insulin 3.5 Units/hr (02/11/21 08) dextrose PRN Meds:sodium chloride flush, ondansetron, morphine OR morphine, potassium chloride, potassium chloride, magnesium sulfate, calcium gluconate, albumin human, sodium chloride, glucose, dextrose,glucagon (rDNA), dextrose, insulin regular, sodium chloride flush, oxyCODONE OR oxyCODONE Diagnostic Workup: I reviewed pertinent Laboratory results, Radiographic results, and Other Clinical Notes at the timeof today's encounter. BMP: Recent Labs 02/09/21 1802 02/10/21 0002 02/11/21 0002 NA 142 143 133* K 2.6* 3.9 3.2* CL 108* 109* 98 CO2 23 24 28 BUN 17 CREATININE 0.79 0.79 0.80 GLUCOSE 113* 160* 84 Glucose: Recent Labs 02/10/21 2208 02/10/21 2307 02/11/21 0001 02/11/21 0056 02/11/21 0203 02/11/21 0413 02/11/21 0600 02/11/21 0811 POCGLU 98 86 85 106* 99 106* 113* 190* HgbA1C: No results for input(s): LABA1C in the last 72 hours. Hepatic: No results for input(s): ALKPHOS, ALT, AST, PROT, BILITOT, BILIDIR, LABALBU in the last 72hours. Lipids: No results for input(s): CHOL, TRIG, HDL, LDLCALC in the last 72 hours. Invalid input(s): LDL TSH: No results found for: TSH, [id number], M8OAMSL, THYROIDAB, FT3, T4FREE Radiology reportsas per the Radiologist Radiology: Echo Complete 2d W Doppler W Color Result Date: 02/03/2021 TRANSTHORACIC ECHOCARDIOGRAM PATIENT: Danii Wolfe STUDY DATE: 02/03/2021 : 1945 AGE: 75 HT/WT: 165.1 cm (65 102.1 kg (224.5 in) lb) GENDER: F BP: 157 / 82 LOCATION: [facility] PATIENT Inpatient main STATUS: *ORDERING PHYSICIAN: * Koffi Bates *READING PHYSICIAN: * Chastity Borden MD *MECHANICAL MANUFACTURING TECHNICIAN: * Shana Riley INDICATIONS: Assess prior to CABG surgery. CONCLUSIONS SUMMARY: 1.Left ventricle: The cavity size is normal. Wall thickness is normal. Systolic function is normal bythe biplane method of disks. The estimated ejection fraction is 64%. There are no regional wall motion abnormalities. Although strain assessment was abnormal in the basal and mid lateral [place]ough[place], no clear evidence for hypokinesis of the region. Left ventricular diastolic function parameters are normal for the patient's age. E/e' average: 8.7 2. No significant valve disease. STUDY DATA: Complete transthoracic echocardiogram. Procedure: Image quality was good. M-mode, complete 2D, strain rate, complete spectral Doppler, and color flow Doppler images were acquired and archived for permanent storage and are available for subsequent review. Study status: Routine. Patient status: Inpatient. ECG RHYTHM: NSR FINDINGS LEFT VENTRICLE: Average LV global longitudinal strain is -21. The cavity size is normal. Wall thickness is normal. Systolic function is normal by the biplane method of disks. The estimated ejection fraction is 64%. There are no regional wall motion abnormalities. Although strain assessment was abnormal in the basal and mid lateral willoughby, no clear evidence for hypokinesis of the region. Left ventricular diastolic function parameters are normal for the patient's age. E/e' average: 8.7 RIGHT VENTRICLE: The cavity size is normal. Systolic function is normal. Right ventricular systolic pressure is mildly increased. RVSP = 43 mm Hg assuming RAP = 3 mm Hg, VENTRICULAR SEPTUM: There is no evidence of a ventricular septal defect. LEFT ATRIUM: The atrium is normal in size. LEYLA = 31 ml/m2. RIGHT ATRIUM: The atrium is normal in size. ATRIAL SEPTUM: Color Doppler shows no shunt. MITRAL VALVE: Moderately calcified annulus. Doppler: Thereis mild, 1+ regurgitation. The valve area (LVOT continuity) is 2.1 cm^2. The mean diastolic gradient is 1 mm Hg. The peak diastolic gradient is 5 mm Hg. AORTIC VALVE: Structurally normal valve. Trilea flet. Doppler: There is no regurgitation. The peak systolic gradient is 11 mm Hg. The peak systolicvelocity is 1.7 m/sec. TRICUSPID VALVE: Structurally normal valve. Doppler: There is mild, 1+ regurgitation. PULMONIC VALVE: Doppler: There is mild, 1+ regurgitation. AORTA: The aorta is normal. PULMONARY ARTERY: Main pulmonary artery: Normal. PERICARDIUM: There is no pericardial effusion. SYSTEMICVEINS: Inferior vena cava: The vessel is normal. The IVC collapses by greater than 50% with inspiration. Measurements Value Reference Aortic root ID 3.3 cm <4.3 Aortic root ID, STJ, ED 3.1 cm 2.0 - 3.2 Aortic root ID/bsa, STJ, ED 1.4 cm/m^2 1.1 - 1.9 Value Reference Ascending aorta ID, A-P, S 3.6 cm Ascending aorta ID/bsa, A-P, S 1.6 cm/m^2 Left ventricle Value Reference GLS, 2D 20.20 % LV ID, ED (H) 5.4 cm 3.8 - 5.2 LV ID, ES 3.2 cm 2.2 - 3.5 LV ID/bsa, ED 2.4 cm/m^2 2.3 - 3.1 LV ID/bsa, ES 1.5 cm/m^2 1.3 - 2.1 LV PW thickness, ED 0.9 cm 0.6 - 0.9 LV PW/LV ID ratio, ED 0.17 LV wall mass (H) 172 g 66 - 150 LV wall mass/bsa 78 g/m^2 44 - 88 Stroke volume/bsa, 1-p A2C 40.6 ml/m^2 LV end-diastolic volume, 1-p A4C 115 ml 48 - 140 LV end-systolic volume, 1-p A4C 43 ml 12 - 60 LV end-diastolic volume, 2-p (H) 131 ml 46 - 106 LV end-systolic volume, 2-p (H) 47 ml 14 - 42 LV ejection fraction, 2-p 64 % 54 - 74 LV E/e', lateral 7.1 LV E/e', medial 11 LV E/e', average 8.7 Ventricular septum Value Reference IVS thickness, ED 0.8 cm0.6 - 0.9 LVOT Value Reference LVOT ID, A-P 1.9 cm LVOT mean velocity, S 0.6 m/sec LVOT peak gradient, S 6 mm Hg Stroke volume (SV), LVOT DP 61 ml Stroke index (SV/bsa), LVOT DP 28 ml/m^2 Aortic valve Value Reference Aortic valve peak velocity,S 1.7 m/sec Aortic peak gradient, S 11 mm Hg Left atrium Value Reference LA volume/bsa, ES, 2-p 29 ml/m^2 16 - 34 Mitral valve Value Reference Mitral E-wave peak velocity 0.7 m/sec Mitral A-wave peak velocity 0.6 m/sec Mitral deceleration time 211 ms Mitral mean gradient, D 1 mm Hg Mitral peak gradient, D 5 mm Hg Mitral E/A ratio, peak 1.1 Mitral valve area, LVOT continuity 2.1 cm^2 Tricuspid valve Value Reference Tricuspid regurg peak velocity (H) 3.2 m/sec <=2.8 Tricuspid peak RV-RA gradient 40 mm Hg Right atrium Value Reference RA area, ES, A4C (H) 21 cm^2 10 - 18 Systemic veins Value Reference Estimated RAP 3 mm Hg Right ventricle Value Reference TAPSE, 2D 2.5 cm1.7 - 3.1 RV pressure, S, DP 43 mm Hg RV s', lateral (H) 13.6 cm/sec 6.0 - 13.4 Legend: (L) and (H) temi values outside specified reference range. 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 Breast cancer (HCC) Chemotherapy induced diarrhea Chest pain Diabetes mellitus type 2 in obese (HCC) DVT (deep venous thrombosis) (HCC) Essential hypertension Fracture of right hip (HCC) Heel spur HLD (hyperlipidemia) Malignant neoplasm of both breasts (HCC) Mass of left breast Murmur, cardiac Nonrheumatic mitral valve regurgitation Nonrheumatic tricuspid (valve) insufficiency ZITA (obstructive sleep apnea) ZITA (obstructive sleep apnea) Osteoarthritis Presence of stent in coronary artery Pulmonary HTN (HCC) Past Surgical History: Past Surgical History: Procedure Laterality Date CARPAL TUNNEL RELEASE Right CHOLECYSTECTOMY HIP FRACTURE SURGERY Right 2019 JOINT REPLACEMENT Right MASTECTOMY, BILATERAL Bilateral two years ago, lymp nodes removed from right arm Allergy(ies): Allergies Allergen Reactions Dye [Iodides] Other (See Comments) skin was peeling Povidone-Iodine Pravastatin Sodium Rosuvastatin Calcium Simvastatin Family History: Family History Problem Relation Age of Onset No Known Problems Father Diabetes Sister Breast Cancer Sister Hypertension Sister Heart Disease Sister Pancreatic Cancer Sister Diabetes Brother Cancer Brother bone cancer Hypertension Brother Stroke Brother Social History: Social History Tobacco Use Smoking status: Never Smoker Smokeless tobacco: Never Used Substance Use Topics Alcohol use: Never Frequency: Never Binge frequency: Never Drug use: Never Portions of the information within this encounter were entered using an electronic dictation system. Best attempts were made to edit/proofread the information prior to note completion. Despite the review of information, some errors may remain. If there are questions related to the information contained within the note please contact the signing physician directly. I spent 20 minutes with the pt which involved more than 51% of the time in coordination of care, medical evaluation, review of records, and/or counseling of the pt regarding his/her condition/diseasestate/prognosis on the date of this note. Associated attestation - Miles White MD - 02/11/2021 7:04 PM EDT I have personally performed a face to face diagnostic evaluation on this patient. In addition, I have reviewed the resident's/ENTRY LEVEL ACCOUNTANT/WINDOWS SYSTEMS ENGINEER's care plan and agree with those findings My findings are as follows: Denies complaints Vitals: BP 138/66 Pulse 82 Temp 98 F (36.7 C) (Oral) Resp 16 Ht 5' 5 (1.651 m) Wt 225 lb11.2 oz (102.4 kg) SpO2 94% BMI 37.56 kg/m Constitutional: Well developed Respiratory: No respiratory distress, Chest Clear to auscultation, symmetrical expansion, No deformity Cardiovascular System: Regular rate and rhythm, No murmurs, No rubs, No lower extremity edema Abdomen: soft, lax, non-tender, obese Psychiatric: Conscious, alert, oriented to time, place and person A/P Type 2 diabetes with hyperglycemia without long-term insulin use status post coronary artery bypassgraft Obesity Body mass index is 37.02 kg/m . Agreed to Bridge insulin drip with subcutaneous insulin as stated in WINDOWS SYSTEMS ENGINEER note Patient may benefit from Glucagon-like peptide-1 (GLP-1) receptor agonists or Sodium-glucose co-transporter 2 (SGLT2) inhibitors given their cardiovascular benefits as long as there are no contraindications and patient is able to afford such medications. Time spent with patient 15 minutes with more than 50% of that time in direct face to face counseling as documented in note LABs and/ or maging are reviewed as detailed in the resident's/ENTRY LEVEL ACCOUNTANT/WINDOWS SYSTEMS ENGINEER's note * Kalyn Villa APRN - NP - 02/11/2021 6:58 AM EDT CRITICAL CARE DAILY PROGRESS NOTE Admit Date: 02/02/2021 PCP: No primary care provider on file. Subjective Interval History: The patient is a 75 year old female with a PMH of CAD, HTN, HLD, DM, ZITA (home CPAP), OA, DVT and breast CA (bilateral mastectomy and chemo) who presented to [facility] as a direct admit on 02/03 for CTS evaluation for MVCAD. Over the past few months she had CP and SOB, leading to an outpatient cardiac cath at [facility] which showed mild calcification to L main and proximal LAD, 50% stenosis to 2nd diag, with proximal stent patent, and mid RCA 10-25% stenosis. She went for a CABG x [address] Lao yesterday 02/10 and is seen in the ICU for postop ventilator management. She was extubated POD 0 and weaned to 2L NC during the day, home CPAP at night. EVENTS OF LAST 24 HOURS: NC weaned from 4L to 2L. A-line and SGC removed. Remains on insulin gtt @ 2u/hr. Diet: DIET CARDIAC; Carb Control: 5 carb choices (75 gms)/meal; Low Sodium (2 GM) Medications: Scheduled Meds: furosemide 20 mg Intravenous BID atorvastatin 10 mg Oral Nightly aspirin 81 mg Oral Daily enoxaparin 40 mg Subcutaneous Daily metoprolol tartrate 12.5 mg Oral BID acetaminophen 1,000 mg Oral Q8H mupirocin Nasal BID polyethylene glycol 17 g Oral Daily sennosides-docusate sodium 2 tablet Oral Nightly sodium chloride flush 10 mL Intracatheter Q8H lidocaine 1 patch Transdermal Daily Infusions: sodium chloride 20 mL/hr at 02/09/21 1825 insulin 2 Units/hr (02/11/21 0600) dextrose Objective: : BP (!) 148/59 Pulse 76 Temp 98.3 F (36.8 C) (Oral) Resp 22 Ht 5' 5 (1.651 m) Wt 225 lb11.2 oz (102.4 kg) SpO2 98% BMI 37.56 kg/m Intake/Output Summary (Last 24 hours) at 02/11/2021 0658 Last data filed at 02/11/2021 0600 Gross per 24 hour Intake 2666 ml Output 1658 ml Net 1008 ml Date 02/10/21 0701 - 02/11/21 0700 02/11/21 0701 - 02/12/21 0700 Shift 1849-7956 5515-9641 5061-9168 24 Hour Total 8002-8917 6723-9738 6024-5206 24 Hour Total INTAKE P.O. 740 806 599 7238 I.V. 516 410 926 Shift Total 740 7654 740 7605 OUTPUT Urine 186 661 517 8726 Chest Tube 92 140 20 252 Shift Total 278 4022 920 4047 NET 462 -49 625 1038 Invasive Lines: CVC D#2 Results: CBC: Recent Labs 02/10/21 0002 02/11/21 0002 WBC 10.5 14.6* HGB 10.4* 10.4* PLT 204 187 BMP: Recent Labs 02/09/21 1802 02/10/21 0002 02/11/21 0002 NA 142 143 133* K 2.6* 3.9 3.2* CL 108* 109* 98 CO2 23 24 28 BUN 17 CREATININE 0.79 0.79 0.80 GLUCOSE 113* 160* 84 . Physical Exam Vitals signs and nursing note reviewed. Constitutional: General: She is awake. She is not in acute distress. Appearance: She is obese. Interventions: Nasal cannula in place. HENT: Head: Normocephalic and atraumatic. Nose: Nose normal. No congestion or rhinorrhea. Mouth/Throat: Mouth: Mucous membranes are moist. Pharynx: Oropharynx is clear. No oropharyngeal exudate or posterior oropharyngeal erythema. Eyes: General: No scleral icterus. Extraocular Movements: Extraocular movements intact. Conjunctiva/sclera: Conjunctivae normal. Pupils: Pupils are equal, round, and reactive to light. Neck: Musculoskeletal: Normal range of motion and neck supple. Trachea: Trachea normal. No tracheal deviation. Cardiovascular: Rate and Rhythm: Normal rate and regular rhythm. Pulses: Normal pulses. Heart sounds: Normal heart sounds, S1 normal and S2 normal. No murmur. No friction rub. No gallop. Pulmonary: Effort: Pulmonary effort is normal. No respiratory distress. Breath sounds: Normal breath sounds. No wheezing, rhonchi or rales. Abdominal: General: Bowel sounds are normal. There is no distension. Palpations: Abdomen is soft. Tenderness: There is no abdominal tenderness. There is no guarding or rebound. Genitourinary: Comments: Hernandez draining yellow urine Musculoskeletal: Normal range of motion. Right lower leg: No edema. Left lower leg: No edema. Skin: General: Skin is warm and dry. Capillary Refill: Capillary refill takes less than 2 seconds. Nails: There is no clubbing. Comments: Midsternal incision with no drainage. CT x 2 to waterseal with serosanguinous drainage. Epicardial wires present Neurological: General: No focal deficit present. Mental Status: She is alert and oriented to person, place, and time. GCS: GCS eye subscore is 4. GCS verbal subscore is 5. GCS motor subscore is 6. Sensory: Sensation is intact. Motor: Motor function is intact. Psychiatric: Mood and Affect: Mood and affect normal. Behavior: Behavior normal. Behavior is cooperative. Films: CXR: Results for orders placed during the hospital encounter of 02/02/21 XR CHEST PORTABLE Narrative Patient Name: DANII WOLFE Diagnostic Radiology ACCESSION EXAM DATE/TIME PROCEDURE ORDERING PROVIDER [id number] 02/11/2021 05:53 EDT CR Chest Portable [id number] -DMITRY BEGUM CPT code 27084 Reason For Exam (CR Chest Portable) Shortness of breath Report PORTABLE CHEST X-RAY CLINICAL INDICATION: Shortness of breath A portable frontal view of the chest was obtained. COMPARISON: 02/10/2021 FINDINGS: Heart size is at the upper limits of normal, similar to the prior study. Previously noted right jugular [place]-Luis catheter has been removed. A right jugular sheath remains in place. Mediastinal drain and left-sided chest tube are unchanged. Mild left basilar atelectasis is similar to the prior study. No new areas of consolidation are seen. There is no large pleural effusion or pneumothorax. There are degenerative changes of the spine. IMPRESSION: [place]-Luis catheter has been withdrawn. Right jugular sheath remains in place. Left basilar atelectasis and low lung volumes, similar to the prior study. Report Dictated on --- Final --- Dictated: 02/11/2021 5:23 am Dictating Physician: MD VELIZ JONATHAN R Signed Date and Time: 02/11/2021 5:24 am Signed by: MD VELIZ JONATHAN R Transcribed Date and Time: 02/11/2021 5:23 Assessment and Plan: 1. Acute post-operative ventilator management/hx ZITA: pt admitted from OR under general anesthesia.Successful extubation to NIV at 2200. Weaned to 2L NC yesterday. Tolerated home CPAP overnight, SpO2 remained > 96%. Continue aggressive pulmonary recruitment measures with incentive spirometer, cough and deep breathing. Continue PRN nebs and monitor daily CXR. 2. POD2 CABGx3/HTN/HLD: SBP goals 90-130. Remained stable off epi, required no further vasoactive medications. Pain management with oxycodone or morphine PRN and 1000mg acetaminophen TID. Lina-op ancef completed and discontinued. Restarted metoprolol and atorvastatin yesterday. Restart home meds atenolol, hydrochlorothiazide, isosorbide and ramipril when able per primary. Remainder of care per CTS 3. Acute blood loss anemia: Hgb preop 14.3, currently 10.4. No blood products given. CT to water seal, 250 out total yesterday. Monitor CT output and CBC. Transfuse as needed for hbg < 7. 4. Stress Hyperglycemia/hx DM: BG < 120 overnight on insulin gtt @ 2u/hr. Will continue to maintain BG between 120-180. Hbg A1c 8.2. Endocrine consult for transition off insulin gtt, plan to change to SC insulin within 24-48hrs. On home metformin. 5. Leukocytosis: increased WBC overnight, 14.6. Likely reactive 2/2 CABG. Afebrile. Periop ancef completed. Will continue to trend daily CBC. 6. Hx breast CA: s/p bilateral mastectomy and chemo. On home anastrozole, will restart per primary. 7. FEN: Cardiac diet ordered, tolerating well. No nausea. K replaced for 3.2 on AM labs. Bowel regimen ordered. +5.6L since admit, +1L over past 24 hours. 40mg lasix given yesterday with good response. Additional 20mg x 2 ordered for today. Code Status: FULL Plan of care discussed with Dr. Bynum ICU Prophylaxis: Stress ulcer: [] PPI Agent [] H2RA [] Sucralfate [] Other: VTE: [x] Enoxaparin [] SC Heparin [] SCD Associated attestation - Deborah Bynum DO - 02/11/2021 4:24 PM EDT I have personally performed a [id number] diagnostic evaluation on this patient on date of service02/11/21. History, labs, imaging studies, and electronic medical record have been reviewed by me. This note documented by the []household cook [x]CHRISSY reflects my history, exam, and medical decision making. I have reviewed and agree with the care plan. Changes were made in the orders as necessary. ROSdocumentation was reviewed and negative unless otherwise stated in HPI. Doing well, weaned from 4L-->2L. Compliant with nightly cpap. Chest tubes to water seal. Endo transitioning off insulin gtt. To receive lasix today per CTS. CCM to sign off. Please call if needed. * Joselyn Rees MD - 02/11/2021 4:29 AM EDT Images from the original note were not included. Cardiothoracic Surgery Progress Note 02/11/2021 5:43 AM Subjective: Admit Date: 02/02/2021 PCP: No primary care provider on file. Procedures CABG x3 (AMYS to LAD, SVG to OM, SVG to diagonal) 02/09 Interval History No acute events overnight. Afebrile. VSS. Maintaining SpO2 on CPAP. Pain control improved. Exacerbated by movement. Dyspnea on exertion. Tolerating diet. PO intake 1240cc / 24H. Received Lasix 40mg yesterday evvening. UOP 1301cc / 24H Mediastinal CT output 54cc / 24H. Left pleural CT output 178cc / 24H. Objective: Vitals: Temp (24hrs), Av.7 F (37.1 C), Min:98.3 F (36.8 C), Max:99.3 F (37.4 C) BP 133/61 Pulse 68 Temp 98.3 F (36.8 C) (Oral) Resp 19 Ht 5' 5 (1.651 m) Wt 222 lb 7.1 oz (100.9 kg) SpO2 97% BMI 37.02 kg/m I/O: Date 02/11/21 0000 - 02/11/21 2359 Shift 3279-0241 0347-4511 1133-9826 24 Hour Total INTAKE Shift Total(mL/kg) OUTPUT Urine(mL/kg/hr) 190 190 Chest Tube 0 0 Shift Total(mL/kg) 190(1.9) 190(1.9) Weight (kg) 100.9 100.9 100.9 100.9 Patient Vitals for the past 96 hrs (Last 3 readings): Weight 02/10/21 0600 222 lb 7.1 oz (100.9 kg) 02/09/21 0615 215 lb (97.5 kg) 02/08/21 0545 215 lb 12.8 oz (97.9 kg) Labs and Diagnostics: (reviewed in EMR) BMP: Recent Labs 02/09/21 1802 02/10/21 0002 02/11/21 0002 NA 142 143 133* K 2.6* 3.9 3.2* CL 108* 109* 98 CO2 23 24 28 BUN 18 17 CREATININE 0.79 0.79 0.80 GLUCOSE 113* 160* 84 . CBC: Recent Labs 02/10/21 0002 02/11/21 0002 WBC 10.5 14.6* HGB 10.4* 10.4* PLT 204 187 INR: Lab Results Component Value Date PROTIME 12.7 02/09/2021 INR 1.2 02/09/2021 Medications: Scheduled Meds: atorvastatin 10 mg Oral Nightly aspirin 81 mg Oral Daily enoxaparin 40 mg Subcutaneous Daily metoprolol tartrate 12.5 mg Oral BID acetaminophen 1,000 mg Oral Q8H mupirocin Nasal BID polyethylene glycol 17 g Oral Daily sennosides-docusate sodium 2 tablet Oral Nightly ceFAZolin (ANCEF) IVPB 2,000 mg Intravenous Q8H sodium chloride flush 10 mL Intracatheter Q8H lidocaine 1 patch Transdermal Daily Continuous Infusions: sodium chloride 20 mL/hr at 02/09/21 1825 insulin 2 Units/hr (02/11/21 0413) dextrose Home Meds: Prior to Admission medications Medication Sig Start Date End Date Taking? Authorizing Provider anastrozole (ARIMIDEX) 1 MG tablet Take 1 mg by mouth daily Yes Historical Provider, aspirin 81 MG chewable tablet Take 81 mg by mouth daily Yes Historical Provider, atenolol (TENORMIN) 50 MG tablet Take 50 mg by mouth daily Yes Historical Provider, atorvastatin (LIPITOR) 10 MG tablet Take 10 mg by mouth daily Yes Historical Provider, calcium citrate-vitamin D (CITRICAL + D) 315-250 MG-UNIT TABS per tablet Take 1 tablet by mouth 2 times daily (with meals) Yes Historical Provider, clopidogrel (PLAVIX) 75 MG tablet Take 75 mg by mouth daily For hearth cath today 02/02/2021 Yes Historical Provider, dicyclomine (BENTYL) 20 MG tablet Take 20 mg by mouth every 6 hours Yes Historical Provider, vitamin D (ERGOCALCIFEROL) 1.25 MG (09996 UT) CAPS capsule Take 50,000 Units by mouth once a week Mondays and fridays Yes Historical Provider, hydroCHLOROthiazide (HYDRODIURIL) 25 MG tablet Take 25 mg by mouth daily Yes Historical Provider, isosorbide mononitrate (IMDUR) 30 MG extended release tablet Take 30 mg by mouth daily Yes Historical Provider, metFORMIN (GLUCOPHAGE) 1000 MG tablet Take 1,000 mg by mouth 2 times daily (with meals) Yes Historical Provider, potassium chloride (MICRO-K) 10 MEQ extended release capsule Take 20 mEq by mouth 2 times daily YesHistorical Provider, ramipril (ALTACE) 2.5 MG capsule Take 2.5 mg by mouth daily Yes Historical Provider, diphenhydrAMINE (BENADRYL) 25 MG tablet Take 50 mg by mouth every 6 hours as needed for Itching Take at HS the night before a procedure Historical Provider, nitroGLYCERIN (NITROSTAT) 0.[address] 0.4 mg under the tongue every 5 minutes as needed for Chest pain up to max of 3 total doses. If no relief after 1 dose, call 911. Historical Provider, Physical Exam Constitutional: General: She is not in acute distress. Appearance: Normal appearance. She is not ill-appearing or diaphoretic. HENT: Head: Normocephalic and atraumatic. Right Ear: External ear normal. Left Ear: External ear normal. Nose: Nose normal. No congestion. Mouth/Throat: Mouth: Mucous membranes are moist. Pharynx: Oropharynx is clear. Eyes: General: Right eye: No discharge. Left eye: No discharge. Extraocular Movements: Extraocular movements intact. Neck: Musculoskeletal: Neck supple. No muscular tenderness. Comments: Right IJ Cordis Cardiovascular: Rate and Rhythm: Normal rate and regular rhythm. Heart sounds: Normal heart sounds. Comments: Median sternotomy dressing C/D/I. Mediastinal and left pleural chest tubes to water seal.Serosanguinous drainage. No air leak. Pulmonary: Effort: No respiratory distress. Breath sounds: Normal breath sounds. No wheezing. Abdominal: General: There is no distension. Palpations: Abdomen is soft. Tenderness: There is no abdominal tenderness. There is no guarding or rebound. Genitourinary: Comments: Hernandez catheter in place. Clear yellow urine. Neurological: Mental Status: She is alert and oriented to person, place, and time. Sensory: No sensory deficit. Motor: No weakness. Psychiatric: Mood and Affect: Mood normal. Behavior: Behavior normal. Diet: DIET CARDIAC; Carb Control: 5 carb choices (75 gms)/meal; Low Sodium (2 GM) Problem List: Active Problems: Coronary artery disease involving north fork coronary artery CAD in north fork artery Class 2 severe obesity with serious comorbidity and body mass index (BMI) of 37.0 to 37.9 in adult (HCC) S/P CABG (coronary artery bypass graft) Resolved Problems: * No resolved hospital problems. * Assessment and Plan: 75-year-old female admitted with CAD and mild MR s/p 3-vessel CABG 02/09 Neuro - Pain control with scheduled Tylenol. Oxycodone / morphine PRN - Lidocaine patch to chest wall CV - CAD s/p CABG x3 - Home aspirin / Lipitor continued. Plavix held. - Atenolol / Imdur / HCTZ / ramipril held. Continue scheduled Lopressor. Pulmonary - Chest tubes to water seal. Will discuss timing of removal with Dr. Lao. - CXR stable this morning - Lasix 20mg IV x2 doses today - Hx ZITA. CPAP QHS. FEN/GI - Cardiac carb control low sodium diet - Zofran PRN nausea - Scheduled bowel regimen: Miralax / Senokot-S - Electrolyte replacement as needed - Cr 0.8 from 0.79. Monitor. - Hernandez catheter in place. Monitor UOP. Heme - Hb 10.4 from 10.4. Monitor. - Platelets 187 from 204. Monitor. - No indication for transfusion Endocrine - Stress hyperglycemia / Hx DM2. Continue insulin gtt. Endocrinology following. - Blood glucose 80s-100s. Monitor. ID - WBC 14.6 from 10.5. Monitor. - Ancef 2g Q8H x5 doses postop - Nasal Bactroban BID x4 days postop Musculoskeletal - Activity as tolerated with sternal precautions / Ambulate. - PT/OT. Recommend home with home health PT / 24H supervision or assist Prophylaxis - DVT: SCDs / DAVIS hose / Lovenox Lines / Devices - Right IJ Cordis - Chest tubes x2 - Hernandez catheter Disposition - Continue care in U Joselyn Rees MD Disclaimers: INFORMED CONSENT: The nature and purpose of the proposed treatment and/or procedure have been discussed. The risks and benefits of the proposed treatment or procedures have been reviewed. Alternatives have been reviewed in addition to the risks and benefits of not receiving treatments or undergoingprocedures. Pursuant to this discussion, the patient agrees to undergo the proposed treatment or procedure. Captured images seen in this note are not a substitute for a comprehensive interpretation of the entire data set as reflected by the interpreting physician with regard to radiology, echocardiography,and other diagnostic images. This note may have been dictated using [employer] Practice Edition 2.6 and/or [employer] Voice Recognition Feature. The document was proofread; however, unrecognized voice recognition truck sales manager errors may be present. Associated attestation - Maira Lao MD - 02/12/2021 5:43 PM EDT DOS: 02/11/21 I personally performed a face to face diagnostic evaluation on this patient. I agree with the findings and plan of care as documented by the resident/ENTRY LEVEL ACCOUNTANT/WINDOWS SYSTEMS ENGINEER/PA, unless otherwise noted. Maira Lao MD Cardiothoracic Surgery * Sheila Duenas, PT - 02/10/2021 1:43 PM EDT Physical Therapy Facility/Department: [facility] Initial Assessment NAME: Danii Wolfe : 1945 Date of Service: 02/10/2021 *N95 mask, goggles and gloves worn by this PT throughout pt encounter* Discharge Recommendations: Home with Home health PT, 24 hour supervision or assist, Home with assist PRN PT Equipment Recommendations Other: TBD Assessment Body structures, Functions, Activity limitations: Decreased functional mobility ;Decreased posture;Increased pain;Decreased ADL status;Decreased balance;Decreased strength;Decreased safe awareness Assessment: pt w/ above deficits. Educated on sternal precautions; minimal cues to comply. pt limited by fatigue and L flank pain. Cues for deep breaths w/ IS. Anticipate return home w/ daughter assist and home PT. 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 has a past medical history of Atherosclerotic heart disease of north fork coronary artery without angina pectoris, Breast cancer (HCC), Chemotherapy induced diarrhea, Chest pain, Diabetes mellitus type 2in obese (HCC), DVT (deep venous thrombosis) (HCC), Essential hypertension, Fracture of right hip (HCC), Heel spur, HLD (hyperlipidemia), Malignant neoplasm of both breasts (HCC), Mass of left breast, Murmur, cardiac, Nonrheumatic mitral valve regurgitation, Nonrheumatic tricuspid (valve) insufficiency, ZITA (obstructive sleep apnea), ZITA (obstructive sleep apnea), Osteoarthritis, Presence of stent in coronary artery, and Pulmonary HTN (HCC). has a past surgical history that includes Mastectomy, bilateral (Bilateral); Hip fracture surgery (Right, 2019); Cholecystectomy; joint replacement (Right); and Carpal tunnel release (Right). Restrictions Restrictions/Precautions Restrictions/Precautions: Fall Risk Position Activity Restriction Sternal Precautions: No Pushing, No Pulling, 10# Lifting Restrictions Sternal Precautions: YES Other position/activity restrictions: external pacer, 2 L/min O2, chest tubes Subjective General Chart Reviewed: Yes Patient assessed for rehabilitation services?: Yes Family / Caregiver Present: No Diagnosis: CAD s/p CABGx3 02/09 Follows Commands: Within Functional Limits Subjective Subjective: pt in bed, agrees to PT. Feels tired. [place]/Art line removed this am. RN ok'd PT. Pain Screening Patient Currently in Pain: Yes(7/10 L flank) Pre Treatment Pain Screening Comments / Details: pt reports she received pain meds prior to tx Social/Functional History Social/Functional History Lives With: Alone(daughter will stay w/ pt) Type of Home: House Home Layout: One level Home Access: Stairs to enter with rails Entrance Stairs - Number of Steps: 1 Bathroom Shower/Tub: Walk-in shower Bathroom Toilet: Handicap height Bathroom Equipment: Grab bars in shower, Shower chair Bathroom Accessibility: Accessible Home Equipment: Grab bars, Rolling walker, Cane ADL Assistance: Independent Homemaking Assistance: Independent Homemaking Responsibilities: Yes Ambulation Assistance: Independent Transfer Assistance: Independent Active Mortgage Professional: Yes Mode of Transportation: Car Occupation: Retired Additional Comments: no recent snf stay Cognition Cognition Overall Cognitive Status: Exceptions Arousal/Alertness: Appropriate responses to stimuli Following Commands: Follows one step commands with repetition Attention Span: Appears intact Memory: Appears intact Safety Judgement: Decreased awareness of need for assistance;Decreased awareness of need for safety Insights: Decreased awareness of deficits Initiation: Requires cues for some Sequencing: Requires cues for some Objective AROM RLE (degrees) RLE AROM: WFL AROM LLE (degrees) LLE AROM : WFL Strength Other Other: bilat hip flex 4/5, rest WFL Sensation Overall Sensation Status: WFL Bed mobility Supine to Sit: Moderate assistance(raised HOB) Comment: cues for sternal precautions Transfers Sit to Stand: Moderate Assistance Stand to sit: Moderate Assistance Ambulation Ambulation?: Yes WB Status: sternal precautions More Ambulation?: No Ambulation 1 Surface: level tile Device: No Device Other Apparatus: O2 Assistance: Moderate assistance Quality of Gait: retro lean Gait Deviations: Slow Lola;Decreased step length;Decreased step height;Staggers Distance: 4' to chair Stairs/Curb Stairs?: No Balance Posture: Fair Sitting - Static: Good;- Sitting - Dynamic: Fair;+ Standing - Static: Fair;+ Standing - Dynamic: Fair Exercises Gluteal Sets: x10 Hip Flexion: x10 bilat Knee Long Arc Quad: x10 bilat Comments: IS ~500 mL x10-15 reps, cues to slow pace Plan Plan Times per week: 5-7x Plan weeks: 2 Specific instructions for Next Treatment: progress gait, initiate P&C ex Current Treatment Recommendations: Strengthening, Balance Training, Functional Mobility Training, Transfer Training, ROM, Stair training, Gait Training, Endurance Training, Home Exercise Program, Safety Education & Training, Patient/Caregiver Education & Training, Equipment Evaluation, Education, & procurement Plan Comment: Chest PT Safety Devices Type of devices: All fall risk precautions in place, Left in chair, Call light within reach, Patient at risk for falls, Nurse notified AM-PAC Score AM-PAC Inpatient Mobility Raw Score : 8 (02/10/21 1342) AM-PAC Inpatient T-Scale Score : 28.52 (02/10/21 1342) Mobility Inpatient CMS 0-100% Score: 86.62 (02/10/21 1342) Mobility Inpatient CMS G-Code Modifier : CM (02/10/21 134) Goals Short term goals Time Frame for Short term goals: 2 wks Short term goal 1: bed mobility min assist Short term goal 2: transfers indep Short term goal 3: amb 300' w/ least restrictive device mod indep Short term goal 4: negotiate 1 entry step w/ min assist Short term goal 5: indep w/ P&C exercises and IS Short term goal 6: pt to demonstrate understanding of hoem walking program Patient Goals Patient goals : return home Therapy Time Individual Concurrent Group Co-treatment Time In 1247 Time Out 1318 Minutes 31 Timed Code Treatment Minutes: 10 Minutes(TP) Patient s Physical Therapy Plan of Care supervision is transferred to [facility] Department Physical Therapist. Goals and/or treatment plan was established in collaboration with patient/family/other representatives. Sheila Duenas, PT * Kalyn Villa APRN - TIAN - 02/10/2021 6:59 AM EDT CRITICAL CARE DAILY PROGRESS NOTE Admit Date: 02/02/2021 PCP: No primary care provider on file. Subjective Interval History: The patient is a 75 year old female with a PMH of CAD, HTN, HLD, DM, ZITA (home CPAP), OA, DVT and breast CA (bilateral mastectomy and chemo) who presented to [facility] as a direct admit on 02/03 for CTS evaluation for MVCAD. Over the past few months she had CP and SOB, leading to an outpatient cardiac cath at [facility] which showed mild calcification to L main and proximal LAD, 50% stenosis to 2nd diag, with proximal stent patent, and mid RCA 10-25% stenosis. She went for a CABG x [address] Lao yesterday 02/10 and is seen in the ICU for postop ventilator management. EVENTS OF LAST 24 HOURS: successfully extubated last night to NIV. Epi gtt weaned off. Remains on insulin @ 8units/hr. Complaints of 6/10 incisional chest pain this morning. Diet: DIET CARDIAC; Carb Control: 5 carb choices (75 gms)/meal; Low Sodium (2 GM) Medications: Scheduled Meds: atorvastatin 10 mg Oral Nightly aspirin 81 mg Oral Daily enoxaparin 40 mg Subcutaneous Daily metoprolol tartrate 12.5 mg Oral BID acetaminophen 1,000 mg Oral Q8H chlorhexidine 15 mL Mouth/Throat BID mupirocin Nasal BID polyethylene glycol 17 g Oral Daily sennosides-docusate sodium 2 tablet Oral Nightly ceFAZolin (ANCEF) IVPB 2,000 mg Intravenous Q8H sodium chloride flush 10 mL Intracatheter Q8H lidocaine 1 patch Transdermal Daily Infusions: sodium chloride 20 mL/hr at 02/09/21 1825 insulin 8 Units/hr (02/10/21612) dextrose Objective: : BP (!) 149/76 Pulse 85 Temp 98.6 F (37 C) (Temporal) Resp 18 Ht 5' 5 (1.651 m) Wt 222 lb 7.1 oz (100.9 kg) SpO2 96% BMI 37.02 kg/m Hemodynamic Monitoring Hemodynamic Device: [place]Lu[place] Core (Body) Temperature: 99.5 F (37.5 C) PAP: 39/17 PAP (Mean): 26 mmHg CVP (Mean): 12 mmHg CO (l/min): 4.3 l/min CI (l/min/m2): 2.1 l/min/m2 SVR (dyne*sec)/cm5: 1330 (dyne*sec)/cm5 Intake/Output Summary (Last 24 hours) at 02/10/2021 0659 Last data filed at 02/10/2021 0600 Gross per 24 hour Intake 2531 ml Output 1161 ml Net 1370 ml Date 02/09/21 0701 - 02/10/21 0700 02/10/21 0701 - 02/11/21 0700 Shift 5938-5705 8805-8504 2560-5522 24 Hour Total 6851-8992 1601-8629 6001-3153 24 Hour Total INTAKE I.V. 1335 1196 2531 Shift Total 1335 1196 2531 OUTPUT Urine 725 155 880 Chest Tube 194 87 281 Shift Total 768 532 8792 NET 472 238 3171 Invasive Lines: CVC D#1 Art Line D#1 Results: ABG: Recent Labs 02/09/211706 PH 7.42 CBC: Recent Labs 02/09/21 18002/10/21 0002 WBC 16.0* 10.5 HGB 9.7* 10.4* PLT 193 204 BMP: Recent Labs 02/09/21 1707 02/09/21 1802 02/10/21 0002 NA 142 142 143 K 2.9* 2.6* 3.9 CL 104 108* 109* CO2 25 23 24 BUN 20 19 18 CREATININE 0.83 0.79 0.79 GLUCOSE 113* 113* 160* . Ionized Calcium: Lab Results Component Value Date IONCA 4.60 02/09/2021 INR: Recent Labs 02/08/21 0941 02/09/211706 INR 1.0 1.2* Physical Exam Vitals signs and nursing note reviewed. Constitutional: General: She is awake. She is not in acute distress. Appearance: She is obese. Interventions: Nasal cannula in place. HENT: Head: Normocephalic and atraumatic. Nose: Nose normal. No congestion or rhinorrhea. Mouth/Throat: Mouth: Mucous membranes are moist. Pharynx: Oropharynx is clear. No oropharyngeal exudate or posterior oropharyngeal erythema. Eyes: General: No scleral icterus. Extraocular Movements: Extraocular movements intact. Conjunctiva/sclera: Conjunctivae normal. Pupils: Pupils are equal, round, and reactive to light. Neck: Musculoskeletal: Normal range of motion and neck supple. Trachea: Trachea normal. No tracheal deviation. Cardiovascular: Rate and Rhythm: Normal rate and regular rhythm. Pulses: Normal pulses. Heart sounds: Normal heart sounds, S1 normal and S2 normal. No murmur. No friction rub. No gallop. Pulmonary: Effort: Pulmonary effort is normal. Breath sounds: Normal breath sounds and air entry. No wheezing, rhonchi or rales. Abdominal: General: Bowel sounds are decreased. Palpations: Abdomen is soft. Tenderness: There is no abdominal tenderness. There is no guarding or rebound. Genitourinary: Comments: Hernandez draining dark yellow urine Musculoskeletal: Right lower leg: No edema. Left lower leg: No edema. Skin: General: Skin is warm and dry. Capillary Refill: Capillary refill takes less than 2 seconds. Nails: There is no clubbing. Comments: Midsternal incision dressing intact. No drainage noted. LLE graft sites WNL with no drainage. CT x 2 with serosanguinous drainage Epicardial wires present, not hooked to TPM. Neurological: General: No focal deficit present. Mental Status: She is alert and oriented to person, place, and time. GCS: GCS eye subscore is 4. GCS verbal subscore is 5. GCS motor subscore is 6. Sensory: Sensation is intact. Motor: Motor function is intact. Psychiatric: Mood and Affect: Mood and affect normal. Behavior: Behavior normal. Behavior is cooperative. Films: CXR: Results for orders placed during the hospital encounter of 02/02/21 XR CHEST PORTABLE Narrative Patient Name: DANII WOLFE Diagnostic Radiology ACCESSION EXAM DATE/TIME PROCEDURE ORDERING PROVIDER [id number] 02/10/2021 05:54 EDT CR Chest Portable [id number] -DMITRY BEGUM CPT code 35450 Reason For Exam (CR Chest Portable) Shortness of breath Report PORTABLE CHEST X-RAY CLINICAL INDICATION: Shortness of breath A portable frontal view of the chest was obtained. COMPARISON: 02/09/2021 FINDINGS: Heart size is at the upper limits of normal. Previously noted endotracheal tube and feeding tube have been removed. Right jugular [place]Luis catheter, mediastinal drain, and left basilar chest tube are unchanged. Low lung volumes are present. There is atelectasis at the left lung base. There is no pleural effusion or evidence of pneumothorax. There are degenerative changes of the spine. IMPRESSION: Endotracheal tube and feeding tube have been withdrawn. Additional lines and tubes otherwise unchanged. Low lung volumes. Left basilar atelectasis. Report Dictated on --- Final --- Dictated: 02/10/2021 5:15 am Dictating Physician: MD VELIZ JONATHAN R Signed Date and Time: 02/10/2021 5:16 am Signed by: MD VELIZ JONATHAN R Transcribed Date and Time: 02/10/2021 5:15 Assessment and Plan: Assessment/Plan: 1. Acute post-operative ventilator management/hx ZITA: pt admitted from OR under general anesthesia.Successful extubation to NIV at 2200. Currently on 2L NC. Continue aggressive pulmonary recruitmentmeasures with incentive spirometer, cough and deep breathing. Continue PRN nebs and monitor daily CXR. Will order home CPAP for tonight. 2. POD1 CABGx3/HTN/HLD: SBP goals 90-130. IVF and vasoactive medications as needed for hemodynamicsgoals per CTS, epi weaned off overnight. Pain management with oxycodone or morphine PRN and 1000mg acetaminophen TID. Continue lina-op ancef per CTS. 81mg ASA starting this morning, continue atorvastatin. Restart home meds atenolol, hydrochlorothiazide, isosorbide and ramipril when able per primary. Remainder of care per CTS 3. Acute blood loss anemia: Hgb preop 14.3, currently 10.4. No blood products given. INR 1.2. Monitor CT output and CBC. Transfuse as needed for hbg < 7. 4. Stress Hyperglycemia/hx DM: BG currently controlled on 8 RHI. Will continue to maintain BG between 120-180. Hbg A1c 8.2. Endocrine consult for transition off insulin gtt. On home metformin. 5. Leukocytosis: resolved likely reactive 2/2 CABG. Preop WBC 10.8 currently 10.5. Continue periop ancef. Will continue to trend daily CBC. 6. Hx breast CA: s/p bilateral mastectomy and chemo. On home anastrozole, will restart per primary. 7. FEN: Cardiac diet ordered. Did not eat breakfast d/t nausea. Encouraged use of PRN medications prior to lunch. Replace electrolytes as needed. Bowel regimen ordered. +4.7L since admit, +1.2L over past 24 hours. Low urine output noted, will defer to CTS for treatment. Code Status: FULL Plan of care discussed with Dr. Bynum ICU Prophylaxis: Stress ulcer: [] PPI Agent [] H2RA [] Sucralfate [] Other: VTE: [x] Enoxaparin [] SC Heparin [] SCD Associated attestation - Deborah Bynum DO - 02/10/2021 2:12 PM EDT I have personally performed a [id number] diagnostic evaluation on this patient on date of service02/10/21. History, labs, imaging studies, and electronic medical record have been reviewed by me. This note documented by the []household cook [x]CHRISSY reflects my history, exam, and medical decision making. I have reviewed and agree with the care plan. Changes were made in the orders as necessary. ROSdocumentation was reviewed and negative unless otherwise stated in HPI. Assessment: #POD 1 CABGx3 for multivessel CAD, HTN/HLD #acute post op respiratory failure related to cardiac surgery #acute post op blood loss anemia #stress hyperglycemia, DM2 #hx breast CA #ZITA on cpap Plan: -successfully extubated last night, cont supplemental 02, wean as able. Cont IS, acapella, encourage activity/OOB. Optimize analgesia -ASA, BB and statin started by CTS -monitor H&H and CT output closely -remains on insulin gtt per protocol, endo managing Total critical care time for this patient with life-threatening unstable organ failure, including direct patient contact, management of life support systems, review of data including imaging and labs, and discussions with other team members and physicians at least 33 minutes so far today, excludingprocedures. * Joselyn Rees MD - 02/10/2021 4:36 AM EDT Images from the original note were not included. Cardiothoracic Surgery Progress Note 02/10/2021 5:33 AM Subjective: Admit Date: 02/02/2021 PCP: No primary care provider on file. Procedures CABG x3 (MAYS to LAD, SVG to OM, SVG to diagonal) 02/09 Interval History No acute events overnight. Afebrile. VSS. Maintaining SpO2 on BiPAP 14/8 with FiO2 40%. Pain well controlled. Denies dyspnea. UOP 880cc / 24H (30cc/H per RN). Mediastinal CT output 172cc / 24H. Left pleural CT output 109cc / 24H. Objective: Vitals: Temp (24hrs), Av.4 F (36.9 C), Min:98.2 F (36.8 C), Max:98.6 F (37 C) BP (!) 149/76 Pulse 80 Temp 98.6 F (37 C) (Temporal) Resp 13 Ht 5' 5 (1.651 m) Wt 215 lb(97.5 kg) SpO2 95% BMI 35.78 kg/m I/O: Date 02/10/21 0000 - 02/10/212358 Shift 7714-6840 2387-7558 2622-2902 24 Hour Total INTAKE Shift Total(mL/kg) OUTPUT Urine(mL/kg/hr) 155 155 Chest Tube 87 87 Shift Total(mL/kg) 242(2.5) 242(2.5) Weight (kg) 97.5 97.5 97.5 97.5 Patient Vitals for the past 96 hrs (Last 3 readings): Weight 02/09/21 0615 215 lb (97.5 kg) 02/08/21 0545 215 lb 12.8 oz (97.9 kg) 02/07/21 0630 220 lb (99.8 kg) Labs and Diagnostics: (reviewed in EMR) BMP: Recent Labs 02/09/21 1707 02/09/21 1802 02/10/21 0002 NA 142 142 143 K 2.9* 2.6* 3.9 CL 104 108* 109* CO2 25 23 24 BUN 20 19 18 CREATININE 0.83 0.79 0.79 GLUCOSE 113* 113* 160* . CBC: Recent Labs 02/09/21 18002/10/21 0002 WBC 16.0* 10.5 HGB 9.7* 10.4* PLT 193 204 INR: Lab Results Component Value Date PROTIME 12.7 02/09/2021 INR 1.2 02/09/2021 Medications: Scheduled Meds: acetaminophen 1,000 mg Oral Q8H chlorhexidine 15 mL Mouth/Throat BID mupirocin Nasal BID polyethylene glycol 17 g Oral Daily sennosides-docusate sodium 2 tablet Oral Nightly pantoprazole 40 mg Intravenous Daily And sodium chloride (PF) 10 mL Intravenous Daily ceFAZolin (ANCEF) IVPB 2,000 mg Intravenous Q8H sodium chloride flush 10 mL Intracatheter Q8H lidocaine 1 patch Transdermal Daily Continuous Infusions: sodium chloride 20 mL/hr at 02/09/21 1825 propofol Stopped (02/09/21 1930) insulin 6 Units/hr (02/10/21 0401) dextrose EPINEPHrine infusion Stopped (02/09/21 1834) niCARdipine Stopped (02/09/21 1850) norepinephrine Home Meds: Prior to Admission medications Medication Sig Start Date End Date Taking? Authorizing Provider anastrozole (ARIMIDEX) 1 MG tablet Take 1 mg by mouth daily Yes Historical Provider, aspirin 81 MG chewable tablet Take 81 mg by mouth daily Yes Historical Provider, atenolol (TENORMIN) 50 MG tablet Take 50 mg by mouth daily Yes Historical Provider, atorvastatin (LIPITOR) 10 MG tablet Take 10 mg by mouth daily Yes Historical Provider, calcium citrate-vitamin D (CITRICAL + D) 315-250 MG-UNIT TABS per tablet Take 1 tablet by mouth 2 times daily (with meals) Yes Historical Provider, clopidogrel (PLAVIX) 75 MG tablet Take 75 mg by mouth daily For hearth cath today 02/02/2021 Yes Historical Provider, dicyclomine (BENTYL) 20 MG tablet Take 20 mg by mouth every 6 hours Yes Historical Provider, vitamin D (ERGOCALCIFEROL) 1.25 MG (59489 UT) CAPS capsule Take 50,000 Units by mouth once a week Mondays and fridays Yes Historical Provider, hydroCHLOROthiazide (HYDRODIURIL) 25 MG tablet Take 25 mg by mouth daily Yes Historical Provider, isosorbide mononitrate (IMDUR) 30 MG extended release tablet Take 30 mg by mouth daily Yes Historical Provider, metFORMIN (GLUCOPHAGE) 1000 MG tablet Take 1,000 mg by mouth 2 times daily (with meals) Yes Historical Provider, potassium chloride (MICRO-K) 10 MEQ extended release capsule Take 20 mEq by mouth 2 times daily YesHistorical Provider, ramipril (ALTACE) 2.5 MG capsule Take 2.5 mg by mouth daily Yes Historical Provider, diphenhydrAMINE (BENADRYL) 25 MG tablet Take 50 mg by mouth every 6 hours as needed for Itching Take at HS the night before a procedure Historical Provider, nitroGLYCERIN (NITROSTAT) 0.[address] 0.4 mg under the tongue every 5 minutes as needed for Chest pain up to max of 3 total doses. If no relief after 1 dose, call 911. Historical Provider, Physical Exam Constitutional: General: She is not in acute distress. Appearance: Normal appearance. She is not ill-appearing or diaphoretic. HENT: Head: Normocephalic and atraumatic. Right Ear: External ear normal. Left Ear: External ear normal. Nose: Nose normal. No congestion. Mouth/Throat: Mouth: Mucous membranes are moist. Pharynx: Oropharynx is clear. Eyes: General: Right eye: No discharge. Left eye: No discharge. Extraocular Movements: Extraocular movements intact. Neck: Musculoskeletal: Neck supple. No muscular tenderness. Comments: Right IJ Cordis / [place] Luis catheter Cardiovascular: Rate and Rhythm: Normal rate and regular rhythm. Heart sounds: Normal heart sounds. Comments: Median sternotomy dressing C/D/I. Mediastinal and left pleural chest tubes to suction. Serosanguinous drainage. No air leak. Left radial arterial line. Pulmonary: Effort: No respiratory distress. Breath sounds: Normal breath sounds. No wheezing. Abdominal: General: There is no distension. Palpations: Abdomen is soft. Tenderness: There is no abdominal tenderness. There is no guarding or rebound. Genitourinary: Comments: Hernandez catheter in place. Clear yellow urine. Musculoskeletal: General: No tenderness or signs of injury. Comments: LLE JENNI bandage C/D/I Neurological: Mental Status: She is alert and oriented to person, place, and time. Sensory: No sensory deficit. Motor: No weakness. Psychiatric: Mood and Affect: Mood normal. Behavior: Behavior normal. Diet: Diet NPO Effective Now Exceptions are: Other (See Comment) Problem List: Active Problems: Coronary artery disease involving north fork coronary artery CAD in north fork artery Resolved Problems: * No resolved hospital problems. * Assessment and Plan: 75-year-old female admitted with CAD and mild MR s/p 3-vessel CABG 02/09 Neuro - Pain control with scheduled Tylenol. Oxycodone / morphine PRN - Lidocaine patch to chest wall CV - CAD s/p CABG x3 - Home aspirin / Lipitor resumed. Plavix held. - Atenolol / Imdur / HCTZ / ramipril held. Initiate scheduled Lopressor. Pulmonary - Chest tubes to water seal today. - CXR stable this morning - Hx ZITA. BiPAP QHS. FEN/GI - Advance to cardiac carb control low sodium diet as tolerated - Zofran PRN nausea - Scheduled bowel regimen: Miralax / Senokot-S - Electrolyte replacement as needed - Cr 0.79 from 0.79. Monitor. - Hernandez catheter in place. Monitor UOP. Heme - Hb 10.4 from 9.7. Monitor. - Platelets 204 from 193. Monitor. - No indication for transfusion Endocrine - Continue insulin gtt. Endocrinology following. - Blood glucose 110s-160s. Monitor. ID - WBC 10.5 from 16.0. Monitor. - Ancef 2g Q8H x5 doses postop - Nasal Bactroban BID x4 days postop Musculoskeletal - Activity as tolerated with sternal precautions / Ambulate. PT/OT. Prophylaxis - DVT: SCDs / DAVIS hose. Initiate Lovenox. Lines / Devices - Right IJ Cordis / [place] catheter - Left radial arterial line - Chest tubes x2 - Hernandez catheter Disposition - Continue care in U Joselyn Rees MD Disclaimers: INFORMED CONSENT: The nature and purpose of the proposed treatment and/or procedure have been discussed. The risks and benefits of the proposed treatment or procedures have been reviewed. Alternatives have been reviewed in addition to the risks and benefits of not receiving treatments or undergoingprocedures. Pursuant to this discussion, the patient agrees to undergo the proposed treatment or procedure. Captured images seen in this note are not a substitute for a comprehensive interpretation of the entire data set as reflected by the interpreting physician with regard to radiology, echocardiography,and other diagnostic images. This note may have been dictated using [employer] Medical Practice Edition 2.6 and/or [employer] Voice Recognition Feature. The document was proofread; however, unrecognized voice recognition truck sales manager errors may be present. Associated attestation - Maira Lao MD - 02/10/2021 9:39 AM EDT DOS: 02/10/2021 I personally performed a face to face diagnostic evaluation on this patient. I agree with the findings and plan of care as documented by the resident/ENTRY LEVEL ACCOUNTANT/WINDOWS SYSTEMS ENGINEER/PA, unless otherwise noted. Maira Lao MD Cardiothoracic Surgery * Amita Heard, MS, RD, LD - 02/09/2021 8:46 AM EDT Comprehensive Nutrition Assessment Type and Reason for Visit: Reassess Nutrition Recommendations/Plan: 1. Pt NPO for CABG; recommend re-initiating PO diet as medically feasible, with goal of Cardiac/CHOControl. Will continue to monitor adequacy of PO intake once diet re-initiated. 2. Will also monitor need for diet ed reinforcement (pt previously provided with diet handouts as well). 3. RD to monitor weight, labs, fluid, overall nutritional status, & follow up weekly. Nutrition Assessment: Pt NPO, CTS planning to complete CABG this date. Appears during admission, pthas had adequate PO intake, previously received diet education (including handouts) from RD and appeared to have good understanding of information discussed/provided t that time. Pt from home alone however per chart, has children nearby who will be able to provide assistance. Malnutrition Assessment: Malnutrition Status: (Pt now NPO for procedure, prior to this date appears pt's PO intake was adequate, will continue to monitor s/p surgery) Nutrition Related Findings: pos I/O; Abd WDL; trace BLE/generalized edema; medications reviewed; POC Glucose ~200 mgl/dL Wounds: None Current Nutrition Therapies: Diet NPO Time Specified Anthropometric Measures: Height: 5' 5 (165.1 cm) Current Body Weight: 215 lb (97.5 kg)(standing scale 02/09) Admission Body Weight: 224 lb (101.6 kg)(standing scale per petroleum engineering professor) Usual Body Weight: [place] Body Weight: 125 lbs; % [place] Body Weight 172 % BMI: 35.8 Adjusted Body Weight: ; No Adjustment BMI Categories: Obese Class 2 (BMI 35.0 -39.9) Nutrition Interventions: Food and/or Nutrient Delivery: Start Oral Diet(As medically feasible s/p surgery) Nutrition Education/Counseling: (education previously provided, will monitor need for diet ed reinforcement) Coordination of Nutrition Care: Continue to monitor while inpatient Goals: Pt verbalizes understanding of homegoing diet prior to discharge. Nutrition Monitoring and Evaluation: Behavioral-Environmental Outcomes: Knowledge or Skill Food/Nutrient Intake Outcomes: Food and Nutrient Intake Physical Signs/Symptoms Outcomes: Biochemical Data, Skin, Weight Discharge Planning: Too soon to determine Contact: pager [phone] * Koffi Bates APRN - ENTRY LEVEL ACCOUNTANT - 02/08/2021 9:30 AM EDT Images from the original note were not included. Cardiothoracic Surgery Progress Note 02/08/2021 PATIENT NAME: Danii Wolfe TODAY'S DATE: 02/08/2021 Interval History: Awaiting CABG surgery tomorrow Subjective: Up in chair. No complaints Objective: Vitals: Temp (24hrs), Av.5 F (36.4 C), Min:97 F (36.1 C), Max:98.4 F (36.9 C) BP (!) 160/91 Pulse 67 Temp 97 F (36.1 C) (Temporal) Resp 16 Ht 5' 5 (1.651 m) Wt 215 lb12.8 oz (97.9 kg) SpO2 92% BMI 35.91 kg/m I/O: Intake/Output Summary (Last 24 hours) at 02/08/2021 1009 Last data filed at 02/08/2021 0559 Gross per 24 hour Intake 300 ml Output Net 300 ml Weights: Patient Vitals for the past 96 hrs (Last 3 readings): Weight 02/08/21 0545 215 lb 12.8 oz (97.9 kg) 02/07/21 0630 220 lb (99.8 kg) 02/06/21 0358 219 lb 9.6 oz (99.6 kg) Labs: BMP: No results for input(s): NA, K, CL, CO2, BUN, CREATININE, GLUCOSE in the last 72 hours. Invalid input(s): PHOS, MG . CBC: No results for input(s): WBC, RBC, HGB, HCT, MCV, MCH, MCHC, RDW, PLT, MPV in the last 72 hours. Hepatic: No results for input(s): AST, ALT, ALB, BILITOT, ALKPHOS in the last 72 hours. INR: No results found for: PROTIME, INR Physical Exam: Physical Exam Constitutional: General: She is not in acute distress. Appearance: She is well-developed. She is not diaphoretic. HENT: Head: Normocephalic and atraumatic. Nose: Nose normal. Mouth/Throat: Mouth: Mucous membranes are moist. Eyes: Pupils: Pupils are equal, round, and reactive to light. Neck: Musculoskeletal: Normal range of motion and neck supple. Vascular: No JVD. Cardiovascular: Rate and Rhythm: Normal rate and regular rhythm. Pulses: Dorsalis pedis pulses are 2+ on the right side and 2+ on the left side. Heart sounds: Normal heart sounds, S1 normal and S2 normal. No murmur. No friction rub. No gallop. Pulmonary: Effort: Pulmonary effort is normal. No respiratory distress. Breath sounds: Normal breath sounds. No stridor. Abdominal: General: Bowel sounds are normal. There is no distension. Palpations: Abdomen is soft. Tenderness: There is no abdominal tenderness. Musculoskeletal: Normal range of motion. General: No tenderness. Skin: General: Skin is warm and dry. Neurological: Mental Status: She is alert and oriented to person, place, and time. Psychiatric: Mood and Affect: Mood normal. Behavior: Behavior normal. Thought Content: Thought content normal. Judgment: Judgment normal. Scheduled Meds: mupirocin Nasal BID chlorhexidine 15 mL Mouth/Throat BID chlorhexidine Topical See Admin Instructions sennosides-docusate sodium 2 tablet Oral Nightly amLODIPine 5 mg Oral Daily atorvastatin 10 mg Oral Nightly anastrozole 1 mg Oral Daily isosorbide mononitrate 30 mg Oral Daily calcium-cholecalciferol 1 tablet Oral Daily insulin lispro 0-3 Units Subcutaneous Nightly metoprolol tartrate 25 mg Oral BID insulin lispro 0-6 Units Subcutaneous TID [facility] Meds: Prior to Admission medications Medication Sig Start Date End Date Taking? Authorizing Provider anastrozole (ARIMIDEX) 1 MG tablet Take 1 mg by mouth daily Yes Historical Provider, aspirin 81 MG chewable tablet Take 81 mg by mouth daily Yes Historical Provider, atenolol (TENORMIN) 50 MG tablet Take 50 mg by mouth daily Yes Historical Provider, atorvastatin (LIPITOR) 10 MG tablet Take 10 mg by mouth daily Yes Historical Provider, calcium citrate-vitamin D (CITRICAL + D) 315-250 MG-UNIT TABS per tablet Take 1 tablet by mouth 2 times daily (with meals) Yes Historical Provider, clopidogrel (PLAVIX) 75 MG tablet Take 75 mg by mouth daily For hearth cath today 02/02/2021 Yes Historical Provider, dicyclomine (BENTYL) 20 MG tablet Take 20 mg by mouth every 6 hours Yes Historical Provider, vitamin D (ERGOCALCIFEROL) 1.25 MG (74120 UT) CAPS capsule Take 50,000 Units by mouth once a week Mondays and fridays Yes Historical Provider, hydroCHLOROthiazide (HYDRODIURIL) 25 MG tablet Take 25 mg by mouth daily Yes Historical Provider, isosorbide mononitrate (IMDUR) 30 MG extended release tablet Take 30 mg by mouth daily Yes Historical Provider, metFORMIN (GLUCOPHAGE) 1000 MG tablet Take 1,000 mg by mouth 2 times daily (with meals) Yes Historical Provider, potassium chloride (MICRO-K) 10 MEQ extended release capsule Take 20 mEq by mouth 2 times daily YesHistorical Provider, ramipril (ALTACE) 2.5 MG capsule Take 2.5 mg by mouth daily Yes Historical Provider, diphenhydrAMINE (BENADRYL) 25 MG tablet Take 50 mg by mouth every 6 hours as needed for Itching Take at HS the night before a procedure Historical Provider, nitroGLYCERIN (NITROSTAT) 0.[address] 0.4 mg under the tongue every 5 minutes as needed for Chest pain up to max of 3 total doses. If no relief after 1 dose, call 911. Historical Provider, Assessment/Plan MVCAD: -[place] Cath 02/02 results not on chart. Pt would like to know exact percentage of blockages. WIll have CTS office call [facility] fax written report. Images in Impax -Received Plavix last dose 02/02/21 -Plan for CABG surgery tomorrow 02/09 11:[address] Lao. -Continue ASA, BB, Statin -Carotids- Mild L- less than 50% stenosis R-Normal -COVID 19 negative, UA negative, Nasal cx negative -Cr 0.80 WBC 9.6 H/H 12.4/36.6 Platelets 311 -NPO after MN tonight- No meds day of surgery -Reviewed heart surgery education-questions answered. Diabetes-II -Off home metformin (continue to hold for surgery) -On SSI -HgbA1C 8.2 (endo will be consulted post op) HxOSA -Has own cpap from home Hypertension -SBP 120-160's -On isordil, HCTZ, Norvasc, prn hyrdralazine -On metoprolol tartrate 25 mg BID Associated attestation - Maira Lao MD - 02/08/2021 1:35 PM EDT DOS: 02/08/2021 I personally performed a face to face diagnostic evaluation on this patient. I agree with the findings and plan of care as documented by the resident/ENTRY LEVEL ACCOUNTANT/WINDOWS SYSTEMS ENGINEER/PA, unless otherwise noted. Plan for 3v CABG tomorrow for LM equivalent lesion. LAD, OM, and Ramus. Pre-op images reviewed STS score below, ~2% mortality risk Discussed procedure in detail including risks, benefits, and lina-operative course. The risks of the procedure/s include but are not limited to, bleeding, infection, pneumonia, respiratory failure, prolonged Intensive Care Unit stay, multiorgan failure, renal failure needing temporary and/or permanent dialysis, cerebrovascular accident, pulmonary embolism, deep venous thrombosis, cardiac failure or ischemia or arrhythmia, and . Consent obtained Maira Lao MD Cardiothoracic Surgery * Koffi Bates APRN - CNS - 02/07/2021 10:09 AM EDT Images from the original note were not included. Cardiothoracic Surgery Progress Note 02/07/2021 PATIENT NAME: Danii Wolfe TODAY'S DATE: 02/07/2021 Interval History: Awaiting CABG surgery this Friday 02/09 Subjective: Up independent in room. Denies chest pain and shortness of breath Objective: Vitals: Temp (24hrs), Av.8 F (36.6 C), Min:97.2 F (36.2 C), Max:98.7 F (37.1 C) BP (!) 176/92 Pulse 81 Temp 98.1 F (36.7 C) (Temporal) Resp 18 Ht 5' 5 (1.651 m) Wt 220 lb (99.8 kg) SpO2 98% BMI 36.61 kg/m I/O: Intake/Output Summary (Last 24 hours) at 02/07/2021 1009 Last data filed at 02/06/2021 1700 Gross per 24 hour Intake 550 ml Output Net 550 ml Weights: Patient Vitals for the past 96 hrs (Last 3 readings): Weight 02/07/21 0630 220 lb (99.8 kg) 02/06/21 0358 219 lb 9.6 oz (99.6 kg) 02/05/21 0512 221 lb 6.4 oz (100.4 kg) Labs: BMP: No results for input(s): NA, K, CL, CO2, BUN, CREATININE, GLUCOSE in the last 72 hours. Invalid input(s): PHOS, MG . CBC: No results for input(s): WBC, RBC, HGB, HCT, MCV, MCH, MCHC, RDW, PLT, MPV in the last 72 hours. Hepatic: No results for input(s): AST, ALT, ALB, BILITOT, ALKPHOS in the last 72 hours. INR: No results found for: PROTIME, INR Physical Exam: Physical Exam Constitutional: General: She is not in acute distress. Appearance: She is well-developed. She is not diaphoretic. HENT: Head: Normocephalic and atraumatic. Nose: Nose normal. Mouth/Throat: Mouth: Mucous membranes are moist. Eyes: Pupils: Pupils are equal, round, and reactive to light. Neck: Musculoskeletal: Normal range of motion and neck supple. Vascular: No JVD. Cardiovascular: Rate and Rhythm: Normal rate and regular rhythm. Pulses: Dorsalis pedis pulses are 2+ on the right side and 2+ on the left side. Heart sounds: Normal heart sounds, S1 normal and S2 normal. No murmur. No friction rub. No gallop. Pulmonary: Effort: Pulmonary effort is normal. No respiratory distress. Breath sounds: Normal breath sounds. No stridor. Abdominal: General: Bowel sounds are normal. There is no distension. Palpations: Abdomen is soft. Tenderness: There is no abdominal tenderness. Musculoskeletal: Normal range of motion. General: No tenderness. Skin: General: Skin is warm and dry. Neurological: Mental Status: She is alert and oriented to person, place, and time. Psychiatric: Mood and Affect: Mood normal. Behavior: Behavior normal. Thought Content: Thought content normal. Judgment: Judgment normal. Scheduled Meds: hydroCHLOROthiazide 25 mg Oral Daily amLODIPine 5 mg Oral Daily atorvastatin 10 mg Oral Nightly anastrozole 1 mg Oral Daily isosorbide mononitrate 30 mg Oral Daily calcium-cholecalciferol 1 tablet Oral Daily insulin lispro 0-3 Units Subcutaneous Nightly aspirin 81 mg Oral Daily metoprolol tartrate 25 mg Oral BID insulin lispro 0-6 Units Subcutaneous TID Home Meds: Prior to Admission medications Medication Sig Start Date End Date Taking? Authorizing Provider anastrozole (ARIMIDEX) 1 MG tablet Take 1 mg by mouth daily Yes Historical Provider, aspirin 81 MG chewable tablet Take 81 mg by mouth daily Yes Historical Provider, atenolol (TENORMIN) 50 MG tablet Take 50 mg by mouth daily Yes Historical Provider, atorvastatin (LIPITOR) 10 MG tablet Take 10 mg by mouth daily Yes Historical Provider, calcium citrate-vitamin D (CITRICAL + D) 315-250 MG-UNIT TABS per tablet Take 1 tablet by mouth 2 times daily (with meals) Yes Historical Provider, clopidogrel (PLAVIX) 75 MG tablet Take 75 mg by mouth daily For hearth cath today 02/02/2021 Yes Historical Provider, dicyclomine (BENTYL) 20 MG tablet Take 20 mg by mouth every 6 hours Yes Historical Provider, vitamin D (ERGOCALCIFEROL) 1.25 MG (03223 UT) CAPS capsule Take 50,000 Units by mouth once a week Mondays and fridays Yes Historical Provider, hydroCHLOROthiazide (HYDRODIURIL) 25 MG tablet Take 25 mg by mouth daily Yes Historical Provider, isosorbide mononitrate (IMDUR) 30 MG extended release tablet Take 30 mg by mouth daily Yes Historical Provider, metFORMIN (GLUCOPHAGE) 1000 MG tablet Take 1,000 mg by mouth 2 times daily (with meals) Yes Historical Provider, potassium chloride (MICRO-K) 10 MEQ extended release capsule Take 20 mEq by mouth 2 times daily YesHistorical Provider, ramipril (ALTACE) 2.5 MG capsule Take 2.5 mg by mouth daily Yes Historical Provider, diphenhydrAMINE (BENADRYL) 25 MG tablet Take 50 mg by mouth every 6 hours as needed for Itching Take at HS the night before a procedure Historical Provider, nitroGLYCERIN (NITROSTAT) 0.[address] 0.4 mg under the tongue every 5 minutes as needed for Chest pain up to max of 3 total doses. If no relief after 1 dose, call 911. Historical Provider, Assessment/Plan MVCAD: -[place] Cath 02/02 results not on chart. Pt would like to know exact percentage of blockages. WIll have CTS office call [facility] fax written report. Images in Impax -Received Plavix last dose 02/02/21 -Plan for CABG surgery next Friday 02/09 11:[address] Lao. -Continue ASA, BB, Statin -Carotids- Mild L- less than 50% stenosis R-Normal -COVID 19 negative, UA negative, Nasal cx negative -Cr 0.80 WBC 9.6 H/H 12.4/36.6 Platelets 311 -Will add additional pre ops tomorrow Hx Mitral/Tricuspid insufficiency -Echo completed [place] 11/17/20- Ef 65% trivial mitral and tricuspid insufficiency -Echo 02/03 reeeals EF 64%. No significant valve disease Diabetes-II -Off home metformin (continue to hold for surgery) -On SSI -HgbA1C 8.2 (endo will be consulted post op) HxOSA -Has own cpap from home Hypertension -SBP 130-170 after norvasc added over weekend. -Off home Altace 2.5 mg. Will hold off adding r/t surgery. WIll add prn hydralazine -On isordil, HCTZ, norvasc. -On metoprolol tartrate 25 mg BID Bradycardia -HR now 60-80's -On low dose BB HxBreast Cancer -Bilateral mastectomy/chemo -on Anastrozole HxHyperlipidemia -Has several statin allergies but states able to take atorvastatin -Continue Lipitor 10 mg Disposition: - continue progressive care in 1 [facility] Addendum: 12:10 PM Cath report obtained from [place] with results media -Ostial LAD 90% stneosis -Diagonal 85% stenosis -prox Circ 26% restenosis * Brady Alba APRN - CNP - 02/06/2021 7:15 AM EDT Images from the original note were not included. Cardiothoracic Surgery Progress Note PATIENT NAME: Danii Wolfe : 1945 (75 y.o.) TODAY'S DATE: 02/06/2021 Surgery/Procedure: Planned CABG 02/09/[address] Lao Interval History: 02/06/21: HTN last night SBP 170's; denies any chest pain, SOB or any other cardiac symptoms. Up independently. Review of Systems Constitutional: Negative for diaphoresis, fatigue and fever. Respiratory: Negative for cough, shortness of breath and wheezing. Cardiovascular: Negative for chest pain, palpitations and leg swelling. Gastrointestinal: Negative for abdominal distention, constipation and diarrhea. Skin: Negative for color change, pallor and rash. Last recorded/verified vitals in Epic BP (!) 172/84 Pulse 65 Temp 97.4 F (36.3 C) (Temporal) Resp 16 Ht 5' 5 (1.651 m) Wt 219 lb 9.6 oz (99.6 kg) SpO2 93% BMI 36.54 kg/m Recent Labs 02/04/21 0325 WBC 9.6 HGB 12.4 PLT 311 NA 137 K 3.8 CREATININE 0.81 Diagnostics: Cath 02/03/21 -(outside facility) reveals EF 65% L-Main mild calcification, prox:LAD mild calcification, 50% stenosis, 2nd Diag- proxstent patent, [id number]-72-34% stenosis. TTE 02/03/21 LEFT VENTRICLE: Average LV global longitudinal strain is -21. The cavity size is normal. Wall thickness is normal. Systolic function is normal by the biplane method of disks. The estimated ejection fraction is 64%. There are no regional wall motion abnormalities. Although strain assessment was abnormal in the basal and mid lateral willough[place], no clear evidence for hypokinesis of the region. Left ventricular diastolic function parameters are normal for the patient's age. E/e' average: 8.7 RIGHT VENTRICLE: The cavity size is normal. Systolic function is normal. Right ventricular systolicpressure is mildly increased. RVSP = 43 mm Hg assuming RAP = 3 mm Hg, VENTRICULAR SEPTUM: There is no evidence of a ventricular septal defect. LEFT ATRIUM: The atrium is normal in size. LEYLA = 31 ml/m2. RIGHT ATRIUM: The atrium is normal in size. ATRIAL SEPTUM: Color Doppler shows no shunt. MITRAL VALVE: Moderately calcified annulus. Doppler: There is mild, 1+ regurgitation. The valve area (LVOT continuity) is 2.1 cm^2. The mean diastolic gradient is 1 mm Hg. The peak diastolic gradientis 5 mm Hg. AORTIC VALVE: Structurally normal valve. Trileaflet. Doppler: There is no regurgitation. The peak systolic gradient is 11 mm Hg. The peak systolic velocity is 1.7 m/sec. TRICUSPID VALVE: Structurally normal valve. Doppler: There is mild, 1+ regurgitation. PULMONIC VALVE: Doppler: There is mild, 1+ regurgitation. AORTA: The aorta is normal. PULMONARY ARTERY: Main pulmonary artery: Normal. PERICARDIUM: There is no pericardial effusion. SYSTEMIC VEINS: Inferior vena cava: The vessel is normal. The IVC collapses by greater than 50% with inspiration. Physical Exam Cardiovascular: Rate and Rhythm: Normal rate and regular rhythm. Heart sounds: Normal heart sounds. No murmur. Pulmonary: Effort: Pulmonary effort is normal. Breath sounds: Normal breath sounds. Abdominal: Palpations: Abdomen is soft. Tenderness: There is no abdominal tenderness. Skin: General: Skin is warm and dry. Capillary Refill: Capillary refill takes less than 2 seconds. Neurological: Mental Status: She is alert. Psychiatric: Behavior: Behavior normal. Behavior is cooperative. Current Outpatient Medications Medication Instructions anastrozole (ARIMIDEX) 1 mg, Oral, DAILY aspirin 81 mg, Oral, DAILY atenolol (TENORMIN) 50 mg, Oral, DAILY atorvastatin (LIPITOR) 10 mg, Oral, DAILY calcium citrate-vitamin D (CITRICAL + D) 315-250 MG-UNIT TABS per tablet 1 tablet, Oral, 2 TIMES DAILY WITH MEALS clopidogrel (PLAVIX) 75 mg, Oral, DAILY, For hearth cath today 02/02/2021 dicyclomine (BENTYL) 20 mg, Oral, EVERY 6 HOURS diphenhydrAMINE (BENADRYL) 50 mg, Oral, EVERY 6 HOURS PRN, Take at HS the night before a procedure hydroCHLOROthiazide (HYDRODIURIL) 25 mg, Oral, DAILY isosorbide mononitrate (IMDUR) 30 mg, Oral, DAILY metFORMIN (GLUCOPHAGE) 1,000 mg, Oral, 2 TIMES DAILY WITH MEALS nitroGLYCERIN (NITROSTAT) 0.4 mg, Sublingual, EVERY 5 MIN PRN, up to max of 3 total doses. If no relief after 1 dose, call 911. potassium chloride (MICRO-K) 10 MEQ extended release capsule 20 mEq, Oral, 2 TIMES DAILY ramipril (ALTACE) 2.5 mg, Oral, DAILY vitamin D (ERGOCALCIFEROL) 50,000 Units, Oral, WEEKLY, Mondays and fridays ASSESSMENT/PLAN: CAD s/p previous stent HLD HTN Hx DVT ZITA Hx Pulm HTN Hyperglycemia due T2DM- hgbA1C- 8.2% Obesity without obesity hypoventilation syndrome Planned CABG 02/09/21; plavix washout last dose 02/02/21; hold home ACEi; add norvasc. Will need additional preops placed closer to surgery Cardiac Core Medications: ASA, Statin and BB EF: 02/03-EF 64% DVT prophylaxis: TEDs, SCDs and Lovenox Treatment Team: Primary Care Provider: No primary care provider on file. Cardiology: [facility] Disclaimer INFORMED CONSENT:The nature and purpose of the proposed treatment or procedure have been discussed.The risks and benefits of the proposed treatment or procedures have been reviewed. Alternatives have been reviewed in addition to the risks and benefits of not receiving treatments or undergoing procedures. Pursuant to this discussion, the patient agrees to undergo the proposed treatment or procedure. Captured images seen in this note from are not a substitute for a comprehensive interpretation of the entire data set as reflected by the interpreting physician with regard to radiology, echocardiography, and other diagnostic images. This note may have been dictated using [employer] Medical Practice Edition 2.6 and/or [employer] Voice Recognition Feature. The document was proofread, however unrecognized voice recognition truck sales manager errors may be present. * Aviva Ferreira, , RD, LD - 02/05/2021 1:18 PM EST Comprehensive Nutrition Assessment Type and Reason for Visit: Initial Nutrition Recommendations/Plan: 1. Pt currently ordered General diet; per MNT, include Cardiac/Carb Control diet restrictions considering PMHx. Monitor Glucose control for need to further restrict to 4 CHO/meal, however fairly wellcontrolled during admission. 2. Monitor adequacy of PO for need to initiate ONS. 3. RD provided Heart Healthy/Low Na and CHO Control diet guidelines and RD contact info; pt was very engaged and motivated to change throughout verbal review. 4. Monitor nutrition status, intakes, wt trends, labs, and fluid balance. RD will continue to follow. Nutrition Assessment: Pt hx breast cancer s/p b/l mastectomy and chemo, DM, HTN, HLD. Admitted s/p outpt cardiac cath showing severe multivessel CAD; CTS planning CABG 02/09. 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 Pt states she typically consumes smaller portions than what's served to her here, however knows at home she is consuming the wrong things. Pt acknowledges the fact she is a big salt eater, and is very motivated to make nutritional changes. RD provided Heart Healthy and Carb Control diet guidelines and verbal review. Pt was very engaged and understanding throughout education, and knows she will have good support home goingas well. Malnutrition Assessment: Malnutrition Status: No malnutrition Estimated Daily Nutrient Needs: Energy (kcal): 3987-2210; Weight Used for Energy Requirements: [place] Protein (g): 57-68; Weight Used for Protein Requirements: [place] Fluid (ml/day): per MD; Nutrition Related Findings: +BS. Trace edema BLE. +I&O. Elliot 23. Glucose 177, A1C 8.2 Wounds: None Current Nutrition Therapies: DIET GENERAL; Anthropometric Measures: Height: 5' 5 (165.1 cm) Current Body Weight: 221 lb (100.2 kg)(02/05) [place] Body Weight: 125 lbs; % [place] Body Weight 176.8 % BMI: 36.8 Adjusted Body Weight: ; No Adjustment BMI Categories: Obese Class 2 (BMI 35.0 -39.9) Nutrition Diagnosis: Altered nutrition-related lab values related to food and nutrition related knowledge deficit, cardiac dysfunction, endocrine dysfuntion as evidenced by lab values, localized or generalized fluid accumulation Nutrition Interventions: Food and/or Nutrient Delivery: Modify Current Diet Nutrition Education/Counseling: Education completed Coordination of Nutrition Care: Continue to monitor while inpatient Goals: Pt labs to trend toward baseline values Nutrition Monitoring and Evaluation: Behavioral-Environmental Outcomes: Knowledge or Skill Food/Nutrient Intake Outcomes: Diet Advancement/Tolerance, Food and Nutrient Intake Physical Signs/Symptoms Outcomes: Biochemical Data, Fluid Status or Edema, Nutrition Focused Physical Findings, Skin, Weight Discharge Planning: Too soon to determine Contact: [phone] * Brady Alba APRN - FURNITURE SERVICER - 02/05/2021 6:20 AM EST Images from the original note were not included. Cardiothoracic Surgery Progress Note PATIENT NAME: Danii Wolfe : 1945 (75 y.o.) TODAY'S DATE: 02/05/2021 Surgery/Procedure: Planned CABG 02/09/[address] Lao Interval History: 02/05/21: no acute events overnight. Patient up independently. Plavix washout; last dose. Labs reviewed; additional preops closer to surgery. Review of Systems Constitutional: Negative for diaphoresis, fatigue and fever. Respiratory: Negative for cough, shortness of breath and wheezing. Cardiovascular: Negative for chest pain, palpitations and leg swelling. Gastrointestinal: Negative for abdominal distention, constipation and diarrhea. Skin: Negative for color change, pallor and rash. Last recorded/verified vitals in [facility] BP 116/61 Pulse 65 Temp 98 F (36.7 C) (Temporal) Resp 16 Ht 5' 5 (1.651 m) Wt 221 lb 6.4oz (100.4 kg) SpO2 95% BMI 36.84 kg/m Recent Labs 02/03/21 0356 02/04/21 0325 WBC 14.6* 9.6 HGB 12.4 12.4 PLT 326 311 NA 138 137 K 3.8 3.8 CREATININE 0.72 0.81 Diagnostics: Cath 02/03/21 -(outside facility) reveals EF 65% L-Main mild calcification, prox:LAD mild calcification, 50% stenosis, 2nd Diag- proxstent patent, [id number]-74-48% stenosis. TTE 02/03/21 LEFT VENTRICLE: Average LV global longitudinal strain is -21. The cavity size is normal. Wall thickness is normal. Systolic function is normal by the biplane method of disks. The estimated ejection fraction is 64%. There are no regional wall motion abnormalities. Although strain assessment was abnormal in the basal and mid lateral [place], no clear evidence for hypokinesis of the region. Left ventricular diastolic function parameters are normal for the patient's age. E/e' average: 8.7 RIGHT VENTRICLE: The cavity size is normal. Systolic function is normal. Right ventricular systolicpressure is mildly increased. RVSP = 43 mm Hg assuming RAP = 3 mm Hg, VENTRICULAR SEPTUM: There is no evidence of a ventricular septal defect. LEFT ATRIUM: The atrium is normal in size. LEYLA = 31 ml/m2. RIGHT ATRIUM: The atrium is normal in size. ATRIAL SEPTUM: Color Doppler shows no shunt. MITRAL VALVE: Moderately calcified annulus. Doppler: There is mild, 1+ regurgitation. The valve area (LVOT continuity) is 2.1 cm^2. The mean diastolic gradient is 1 mm Hg. The peak diastolic gradientis 5 mm Hg. AORTIC VALVE: Structurally normal valve. Trileaflet. Doppler: There is no regurgitation. The peak systolic gradient is 11 mm Hg. The peak systolic velocity is 1.7 m/sec. TRICUSPID VALVE: Structurally normal valve. Doppler: There is mild, 1+ regurgitation. PULMONIC VALVE: Doppler: There is mild, 1+ regurgitation. AORTA: The aorta is normal. PULMONARY ARTERY: Main pulmonary artery: Normal. PERICARDIUM: There is no pericardial effusion. SYSTEMIC VEINS: Inferior vena cava: The vessel is normal. The IVC collapses by greater than 50% with inspiration. Physical Exam Cardiovascular: Rate and Rhythm: Normal rate and regular rhythm. Heart sounds: Normal heart sounds. No murmur. Pulmonary: Effort: Pulmonary effort is normal. Breath sounds: Normal breath sounds. Abdominal: Palpations: Abdomen is soft. Tenderness: There is no abdominal tenderness. Skin: General: Skin is warm and dry. Capillary Refill: Capillary refill takes less than 2 seconds. Neurological: Mental Status: She is alert. Psychiatric: Behavior: Behavior normal. Behavior is cooperative. Current Outpatient Medications Medication Instructions anastrozole (ARIMIDEX) 1 mg, Oral, DAILY aspirin 81 mg, Oral, DAILY atenolol (TENORMIN) 50 mg, Oral, DAILY atorvastatin (LIPITOR) 10 mg, Oral, DAILY calcium citrate-vitamin D (CITRICAL + D) 315-250 MG-UNIT TABS per tablet 1 tablet, Oral, 2 TIMES DAILY WITH MEALS clopidogrel (PLAVIX) 75 mg, Oral, DAILY, For hearth cath today 02/02/2021 dicyclomine (BENTYL) 20 mg, Oral, EVERY 6 HOURS diphenhydrAMINE (BENADRYL) 50 mg, Oral, EVERY 6 HOURS PRN, Take at HS the night before a procedure hydroCHLOROthiazide (HYDRODIURIL) 25 mg, Oral, DAILY isosorbide mononitrate (IMDUR) 30 mg, Oral, DAILY metFORMIN (GLUCOPHAGE) 1,000 mg, Oral, 2 TIMES DAILY WITH MEALS nitroGLYCERIN (NITROSTAT) 0.4 mg, Sublingual, EVERY 5 MIN PRN, up to max of 3 total doses. If no relief after 1 dose, call 911. potassium chloride (MICRO-K) 10 MEQ extended release capsule 20 mEq, Oral, 2 TIMES DAILY ramipril (ALTACE) 2.5 mg, Oral, DAILY vitamin D (ERGOCALCIFEROL) 50,000 Units, Oral, WEEKLY, Mondays and fridays ASSESSMENT/PLAN: CAD s/p previous stent HLD HTN Hx DVT ZITA Hx Pulm HTN T2DM- hgbA1C- 8.2% Planned CABG 02/09/21; continue current medicaitons; plavix washout last dose 02/02/21 Cardiac Core Medications: ASA, Statin and BB EF: 02/03-EF 64% DVT prophylaxis: TEDs, SCDs and Lovenox Treatment Team: Primary Care Provider: No primary care provider on file. Cardiology: [facility] Disclaimer INFORMED CONSENT:The nature and purpose of the proposed treatment or procedure have been discussed.The risks and benefits of the proposed treatment or procedures have been reviewed. Alternatives have been reviewed in addition to the risks and benefits of not receiving treatments or undergoing procedures. Pursuant to this discussion, the patient agrees to undergo the proposed treatment or procedure. Captured images seen in this note from are not a substitute for a comprehensive interpretation of the entire data set as reflected by the interpreting physician with regard to radiology, echocardiography, and other diagnostic images. This note may have been dictated using [employer] Edition 2.6 and/or [employer] Voice Recognition Feature. The document was proofread, however unrecognized voice recognition truck sales manager errors may be present. * Batsheva Benjamin - 02/04/2021 9:58 AM EST Nutrition rescreen completed. Patient referred to the Dietitian. SVETA Wood * Koffi Bates APRN - ENTRY LEVEL ACCOUNTANT - 02/04/2021 6:05 AM EST Images from the original note were not included. Cardiothoracic Surgery Progress Note 02/04/2021 PATIENT NAME: Danii Wolfe TODAY'S DATE: 02/04/2021 Interval History: Awaiting CABG surgery next week. Subjective: Up independent in room. Denies chest pain and shortness of breath Objective: Vitals: Temp (24hrs), Av.1 F (36.2 C), Min:96.5 F (35.8 C), Max:98.3 F (36.8 C) BP (!) 125/53 Pulse 58 Temp 98.3 F (36.8 C) (Temporal) Resp 14 Ht 5' 5 (1.651 m) Wt 225 lb 4.8 oz (102.2 kg) SpO2 95% BMI 37.49 kg/m I/O: Intake/Output Summary (Last 24 hours) at 02/04/2021 0605 Last data filed at 02/03/2021 0830 Gross per 24 hour Intake 300 ml Output Net 300 ml Weights: Patient Vitals for the past 96 hrs (Last 3 readings): Weight 02/03/21 0355 225 lb 4.8 oz (102.2 kg) 02/02/21 1545 224 lb (101.6 kg) Labs: BMP: Recent Labs 02/03/21 0356 02/04/21 0325 NA 138 137 K 3.8 3.8 CL 99 99 CO2 29 31* BUN 25* 26* CREATININE 0.72 0.81 GLUCOSE 255* 184* . CBC: Recent Labs 02/03/21 0356 02/04/21 0325 WBC 14.6* 9.6 RBC 4.30 4.20 HGB 12.4 12.4 HCT 37.7 36.6 MCV 87.6 87.2 MCH 28.9 29.4 MCHC 33.0 33.7 RDW 13.7 14.1 PLT 326 311 MPV 8.5 8.2 Hepatic: No results for input(s): AST, ALT, ALB, BILITOT, ALKPHOS in the last 72 hours. INR: No results found for: PROTIME, INR Physical Exam: Physical Exam Constitutional: General: She is not in acute distress. Appearance: She is well-developed. She is not diaphoretic. HENT: Head: Normocephalic and atraumatic. Nose: Nose normal. Mouth/Throat: Mouth: Mucous membranes are moist. Eyes: Pupils: Pupils are equal, round, and reactive to light. Neck: Musculoskeletal: Normal range of motion and neck supple. Vascular: No JVD. Cardiovascular: Rate and Rhythm: Normal rate and regular rhythm. Heart sounds: Normal heart sounds. No murmur. No friction rub. No gallop. Pulmonary: Effort: Pulmonary effort is normal. No respiratory distress. Breath sounds: Normal breath sounds. No stridor. Abdominal: General: Bowel sounds are normal. There is no distension. Palpations: Abdomen is soft. Tenderness: There is no abdominal tenderness. Musculoskeletal: Normal range of motion. General: No tenderness. Skin: General: Skin is warm and dry. Neurological: Mental Status: She is alert and oriented to person, place, and time. Psychiatric: Mood and Affect: Mood normal. Behavior: Behavior normal. Thought Content: Thought content normal. Judgment: Judgment normal. Scheduled Meds: atorvastatin 10 mg Oral Nightly anastrozole 1 mg Oral Daily hydroCHLOROthiazide 25 mg Oral Daily isosorbide mononitrate 30 mg Oral Daily enoxaparin 40 mg Subcutaneous Daily calcium-cholecalciferol 1 tablet Oral Daily insulin lispro 0-3 Units Subcutaneous Nightly aspirin 81 mg Oral Daily metoprolol tartrate 25 mg Oral BID insulin lispro 0-6 Units Subcutaneous TID [facility] Meds: Prior to Admission medications Medication Sig Start Date End Date Taking? Authorizing Provider anastrozole (ARIMIDEX) 1 MG tablet Take 1 mg by mouth daily Yes Historical Provider, aspirin 81 MG chewable tablet Take 81 mg by mouth daily Yes Historical Provider, atenolol (TENORMIN) 50 MG tablet Take 50 mg by mouth daily Yes Historical Provider, atorvastatin (LIPITOR) 10 MG tablet Take 10 mg by mouth daily Yes Historical Provider, calcium citrate-vitamin D (CITRICAL + D) 315-250 MG-UNIT TABS per tablet Take 1 tablet by mouth 2 times daily (with meals) Yes Historical Provider, clopidogrel (PLAVIX) 75 MG tablet Take 75 mg by mouth daily For hearth cath today 02/02/2021 Yes Historical Provider, dicyclomine (BENTYL) 20 MG tablet Take 20 mg by mouth every 6 hours Yes Historical Provider, vitamin D (ERGOCALCIFEROL) 1.25 MG (40033 UT) CAPS capsule Take 50,000 Units by mouth once a week Mondays and fridays Yes Historical Provider, hydroCHLOROthiazide (HYDRODIURIL) 25 MG tablet Take 25 mg by mouth daily Yes Historical Provider, isosorbide mononitrate (IMDUR) 30 MG extended release tablet Take 30 mg by mouth daily Yes Historical Provider, metFORMIN (GLUCOPHAGE) 1000 MG tablet Take 1,000 mg by mouth 2 times daily (with meals) Yes Historical Provider, potassium chloride (MICRO-K) 10 MEQ extended release capsule Take 20 mEq by mouth 2 times daily YesHistorical Provider, ramipril (ALTACE) 2.5 MG capsule Take 2.5 mg by mouth daily Yes Historical Provider, diphenhydrAMINE (BENADRYL) 25 MG tablet Take 50 mg by mouth every 6 hours as needed for Itching Take at HS the night before a procedure Historical Provider, nitroGLYCERIN (NITROSTAT) 0.[address] 0.4 mg under the tongue every 5 minutes as needed for Chest pain up to max of 3 total doses. If no relief after 1 dose, call 911. Historical Provider, Assessment/Plan MVCAD: -Cath 02/02 Received Plavix last dose 02/02/21.Will need to let plavix washout with plan for CABG surgery next Sunday afternoon with Dr. Lao. -Continue ASA, BB, Statin -Carotids pending completion. Will need vein mappings closer to surgery date -COVID 19 negative, UA negative, Nasal cx negative -Heart surgery booklet and education reviewed with pt Hx Mitral/Tricuspid insufficiency -Echo completed [facility] 11/17/20- Ef 65% trivial mitral and tricuspid insufficiency -Echo 02/03 reeeals EF 64%. No significant valve disease Diabetes-II -Off home metformin (continue to hold for surgery) -On SSI -HgbA1C 8.2 (endo will be consulted post op) HxOSA -Has own cpap from home Hypertension -SBP 110-120's. -Controlled on isordil, hctz -On metoprolol tartrate 25 mg BID Bradycardia -HR 53-65 -asymptomatic -On low dose BB HxBreast Cancer -Bilateral mastectomy/chemo -on Anastrozole HxHyperlipidemia -Has several statin allergies but states able to take atorvastatin -on Lipitor 10 mg Leukocytosis -WBC 9.6 resolved down from 14.6 -Received steroids prior to cath likely reactive Disposition: - continue progressive care in 1 [facility] Associated attestation - Maira Lao MD - 02/07/2021 8:11 PM EDT DOS: 02/07/2021 I personally performed a face to face diagnostic evaluation on this patient. I agree with the findings and plan of care as documented by the resident/ENTRY LEVEL ACCOUNTANT/WINDOWS SYSTEMS ENGINEER/PA, unless otherwise noted. Plan for CABG x3, afternoon 02/09/21 Consent obtained The risks of the procedure/s include but are not limited to, bleeding, infection, pneumonia, respiratory failure, prolonged Intensive Care Unit stay, multiorgan failure, renal failure needing temporary and/or permanent dialysis, cerebrovascular accident, pulmonary embolism, deep venous thrombosis, cardiac failure or ischemia or arrhythmia, and . Maira Lao MD Cardiothoracic Surgery documented in this encounter Assessments Diagnosis 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)- Primary S/P CABG (coronary artery bypass graft) Postsurgical aortocoronary bypass status CAD in [place] artery Coronary atherosclerosis of [place] coronary artery Class 2 severe obesity with serious comorbidity and body mass index (BMI) of 37.0 to 37.9 in adult (HCC) Additional Source Comments INFORMATION SOURCE (unrecogn ized section and content) DATE CREATED AUTHOR 02/11/2019 [facility] DATE CREATED AUTHOR AUTHOR'S ORGANIZ ATION 04/24/2021 [facility] [employer] Ordered Prescriptions (unrec ognized section and content) Prescription Sig Dispensed Refills Start Date End Da te Dulaglutide (TRULICITY) 0.75 MG/0.5ML SOPN Inject 0.75 mg into the skin once a week 4 pen 1 02/13/2021 clopidogrel (PLAVIX) 75 MG tablet Take 1 tablet by mouth daily 30 tablet 3 02/13/2021 atorvastatin (LIPITOR) 10 MG tablet Take 1 tablet by mouth nightly 30 tablet 3 02/13/2021 oxyCODONE-acetaminophen (PERCOCET) 5-325 MG per tabletIndications:S/P CABG (coronary artery bypass graft) Take 1 tablet by mouth every 8 hours as needed for Pain for up to 7 days. Intended supply: 7 days. Take lowest dose possible to manage pain 21 tablet 0 02/13/2021 02/20/2021 polyethylene glycol (GLYCOLAX) 17 g packet Take 17 g by mouth daily 30 each 0 02/13/2021 03/15/2021 metoprolol tartrate (LOPRESSOR) 25 MG tablet Take 1 tablet by mouth 2 times daily 60 tablet 3 02/13/2021 FOR RECORDS PERTAINING TO PATIENTS WHO ARE OR HAVE BEEN ENROLLED IN A CHEMICAL DEPENDENCY/SUBSTANCEABUSE PROGRAM, SOME INFORMATION MAY BE OMITTED. This clinical summary was aggregated from multiple sources. Caution should be exercised in using it in the provision of clinical care. This summary normalizes information from multiple sources, and as a consequence, information in this document may materially change the coding, format and clinical context of patient data. In addition, data may be omitted in some cases. CLINICAL DECISIONS SHOULD BE BASED ON THE PRIMARY CLINICAL RECORDS. [employer] [facility]. provides no warranty or guarantee of the accuracy or completeness of information in this document.
== END | disposition home or self-care (01) ==
LOC: CVS 07:45
PROVIDERS: PCP Family Medicine; Referring Provider Internal Medicine Hematology & Oncology; Visit Provider Internal Medicine Hematology & Oncology
DX: Z79.899 Other long term (current) drug therapy (principal)
CPT/HCPCS: 93308; 93356

== ENCOUNTER 2024-10-25 21:18 | Emergency (ER) | payer MEDICARE, OTHER, SELFPAY ==
[2023-01-17 10:06] VITALS: BMI 36.6
[2024-10-25 21:19] VITALS: BP 170/68; PULSE 76; RESP 20; TEMP 37; O2SAT 93
[2024-10-25 21:21] VITALS: BMI 34.9
[2024-10-25 21:22] VITALS: BP 144/81; PULSE 85; RESP 18; TEMP 37; O2SAT 93
--- NOTE | 2024-10-25 21:34 | EKG12_ITS ---
Test Reason : DYSRHYTHMIA Blood Pressure : */* mmHG Vent. Rate : 81 BPM Atrial Rate : 81 BPM P-R Int : 162 ms QRS Dur : 90 ms QT Int : 370 ms P-R-T Axes : 13 45 21 degrees QTcB Int : 429 ms Normal sinus rhythm Septal infarct , age undetermined Abnormal ECG Confirmed by Umer Burnham ([id number]), publication editor JESSICA HOFFMAN ([id number]) on 10/27/2024 11:38:44 AM Referred By: Christian Bernal Confirmed By: Umer Burnham
[2024-10-25 22:01] VITALS: O2SAT 94
[2024-10-25 22:11] LABS: Absolute Lymphocyte Count 2.36 X10^3/uL (0.83-4.51); Basophil# 0.04 X10^3/uL; Basophil% 0.4 % (0-1); Eosinophil# 0.14 X10^3/uL; Eosinophils% 1.3 % (0-5); Hematocrit 36.4 % (37-47); Hemoglobin 11.8 g/dL (12.0-15.0); Lymphocyte # 2.36 X10^3/ul (0.83-4.51); Lymphocyte % 22.4 % (19-41); Mean Corp Hgb Conc 32.4 g/dL (32-36); Mean Corpuscular Hgb 28.8 pg (27.0-32.0); Mean Corpuscular Volume 88.8 fL (81-99); Mean Platelet Vol. 9.7 fl (6.2-12.0); Monocyte# 0.99 X10^3/uL; Monocyte% 9.4 % (0-10); NRBC Flagged by Analyzer 0 % (0-5); Neutrophil # 6.95 X10^3/uL (2.7-7.7); Platelet Count 329 K/mm3 (150-450); RBC Distribution Width CV 13.3 % (11.6-14.6); RBC Distribution Width SD 43.2 fl (35.1-43.9); White Blood Count 10.5 K/mm3 (4.4-11.0)
--- NOTE | 2024-10-25 22:14 | EDS_ITS ---
HPI History of Present Illness Chief Complaint: Shortness of Breath Informant: patient and family Narrative Narrative: Presents here with her 2 children for evaluation. Intermittent left-sided chest pain for the past few weeks with dyspnea. Last 3 days pain rating to the middle of her back. History of cardiac stents in the past and subsequent three-vessel bypass 3 years ago. Currently on aspirin therapy. She reported a week ago those her heart took nitroglycerin no relief. Also diagnosed with recurrent breast cancer with possible little concerning mets. She had a previous mastectomy with her initial diagnosis. Symptoms recur a year ago she is follo wed by Dr. Rey. She was on Herceptin infusions every 21 days. However recent PET scan reported 2 weeks ago had increasing uptake in her bones and liver. She has an appointment on Sunday to discuss with her oncologist. Her last treatment was unable to get due to her PET scan findings per family. She denies cough. She is stating exertional dyspnea. She had DVTs in both legs 20 years ago. No recent travel or surgeries. 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 Bone metastases Liver metastases Recurrent breast cancer Cancer Diabetes Arthritis High cholesterol Non-smoker CPAP (continuous positive airway pressure) dependence History of echocardiogram History of stress test Cardiology follow-up encounter Screening for colon cancer History of colon polyps History of left heart catheterization (LHC) (~02/02/21) CAD (coronary artery disease) Mass of left breast Essential hypertension Diabetes mellitus type 2 in obese Fracture of hip, right, closed Heel spur Pulmonary hypertension Osteoarthritis History of DVT (deep vein thrombosis) Nonrheumatic tricuspid (valve) insufficiency Nonrheumatic mitral valve regurgitation Atherosclerotic heart disease of [place] coronary artery without angina pectoris Presence of stent in coronary artery (~03/12/12) Chemotherapy management, encounter for Genetic counseling Chemotherapy induced diarrhea Breast cancer PORT PLACEMENT Bilateral malignant neoplasm of breast in female HLD (hyperlipidemia) Home Medications ?Medication ?Instructions ?Recorded ?Last Taken ?Type aspirin 81 mg chewable tablet 81 mg PO DAILY 05/24/20 1 Week Ago History ~01/15/23 nitroglycerin 0.4 mg sublingual 0.4 mg sublingual Q5M PRN 07/22/21 Unknown Rx tablet Cardiac/Chest Pain #25 tabs lidocaine-prilocaine 2.5 %-2.5 % 1 applic topical ONCE PRN port 12/18/22 01/22/23 Rx topical cream access 30 days #30 grams potassium chloride 10 mEq 10 meq PO 4X/DAY 02/07/23 Unknown History tablet,extended release(part/cryst) hydrochlorothiazide 25 mg tablet 25 tablet PO DAILY 03/29/23 Unknown History metformin 625 mg tablet 625 mg PO BID 03/29/23 Unknown History metoprolol tartrate 50 mg tablet 50 mg PO BID #180 tabs 11/21/23 Unknown Rx dulaglutide 0.75 mg/0.5 mL mg subcut 12/31/23 Unknown History subcutaneous pen injector (Trulicity) tamoxifen 20 mg tablet 20 mg PO DAILY #30 tabs 12/31/23 Unknown Rx Breast prosthesis (left) #1 ea 02/13/24 Unknown Rx Breast prosthesis (right) #3 ea 02/13/24 Unknown Rx Mastectomy bra #3 ea 02/13/24 Unknown Rx isosorbide mononitrate 30 mg 30 mg PO DAILY #90 tabs 06/25/24 Unknown Rx tablet,extended release 24 hr Allergy/AdvReac Type Severity Reaction Status Date / Time iodine Allergy Severe Rash Verified 10/25/24 21:19 povidone-iodine (From AdvReac Severe Itching Verified 10/25/24 21:19 Betadine) pravastatin sodium (From AdvReac Severe LEG CRAMPS Verified 10/25/24 21:19 Pravachol) rosuvastatin calcium (From AdvReac Severe LEG CRAMPS Verified 10/25/24 21:19 Crestor) simvastatin AdvReac Severe LEG CRAMPS Verified 10/25/24 21:19 soap (From Betadine) AdvReac Severe Itching Verified 10/25/24 21:19 ramipril AdvReac Intermediate coughing Verified 10/25/24 21:19 Family History Sister Pancreatic cancer Diabetes Heart disease Leukemia Breast cancer Hypertension Brother Diabetes Bone cancer Heart disease Hypertension CVA (cerebral vascular accident) Father No problems noted. Surgical History Hx of colonoscopy History of cardiac catheterization History of surgery S/P coronary artery bypass graft x 3 (~02/09/21) History of coronary artery bypass graft x 3 (~02/09/21) Presence of coronary angioplasty implant and graft (~03/12/12) History of carpal tunnel surgery Postsurgical percutaneous transluminal coronary angioplasty (PTCA) status History of bilateral mastectomy History of right breast biopsy History of colonoscopy History of knee joint replacement History of cholecystectomy Social History Smoking Status: Never smoker alcohol intake: never substance use type: does not use caffeine: Yes Type: tea Number of servings: 1 ROS ROS ED Constitutional Constitutional ED: Denies chills, fever(s) or sweats Eyes Eyes: Denies change in vision ENT ENT ED: Denies dysphagia or sore throat Cardiovascular Cardiovascular: Reports chest pain; Denies leg edema, palpitations or racing heartbeat Respiratory/Chest Respiratory/Chest: Reports dyspnea and dyspnea on exertion; Denies cough Gastrointestinal Gastrointestinal: Denies abdominal pain, diarrhea, nausea or vomiting Genitourinary Genitourinary ED: Denies dysuria, hematuria or urinary frequency Musculoskeletal Musculoskeletal: Denies back pain, extremity pain or neck pain Integumentary Denies rash or wounds Neurologic Neurologic: Denies headache(s), paresthesias or weakness EXAM Physical Exam Const Vital Signs: 10/25/24 21:19 10/25/24 21:22 10/25/24 22:01 Temperature 98.6 F 98.6 F Temperature Source Oral Oral Pulse Rate 76 85 Respiratory Rate 20 H 18 Respiratory Effort Short of Breath Respiratory Depth Normal Respiratory Pattern Tachypnea Blood Pressure 170/68 H 144/81 H Blood Pressure Mean 102 102 Pulse Ox 93 93 Oxygen Delivery Method Room Air Room Air Room Air 10/25/24 22:22 10/25/24 22:24 10/25/24 23:00 Temperature 98.7 F 98.7 F Temperature Source Oral Oral Pulse Rate 84 79 Respiratory Rate 18 17 Respiratory Effort Short of Breath Respiratory Depth Respiratory Pattern Blood Pressure 125/68 H 110/85 H Blood Pressure Mean 87 93 Pulse Ox 92 94 Oxygen Delivery Method Room Air Positive well nourished and well developed General Appearance ED: well developed and NAD HEENT Reports moist mucous membranes normocephalic and atraumatic Eyes EOMs intact bilaterally and conjunctivae normal General Eye ED: Yes normal appearance of both eyes Neck no lymphadenopathy and supple General: Negative for tenderness Chest Wall Chest: Negative for tenderness Resp normal respiratory effort and normal air movement Resp Narrative: Symmetric breath sounds. Effort and Inspection: symmetric chest movement; Negative for respiratory distress Cardio regular rate, regular rhythm and no murmurs Peripheral Pulses: pulses 2+ throughout GI normal to inspection, nondistended, normoactive bowel sounds and non-tender Palpation: Negative for guarding or rebound tenderness present Back/Spine no CVA tenderness and no thoracic nor lumbar tenderness Extremity normal to inspection General Extremety ED: Negative for edema or tenderness General Extremity: Negative for edema Neuro oriented x3 and no sensory deficits noted Sensorium / Orientation: awake and alert Skin no rashes or lesions noted and no wounds MDM MDM MDM Narrative Medical decision making narrative: Interventions / MDM: Differential diagnosis: Metastatic breast cancer, dyspnea Diagnosis considered but do not suspect: ACS however EKG chronic findings and negative cardiac enzyme. My EKG interpretation: Sinus rate of 81, no ST changes, T wave version V1 V2. Similar findings 11/30/2023. Imaging independently reviewed and interpreted by myself: CTA chest: External documents reviewed: PET scan 10/14/2024 PET/PET/CT Tumor Base -Thigh Subs IMPRESSION: 1. ABNORMAL EXAMINATION INDICATIVE OF MALIGNANT VIABLE NEOPLASM. 2. Increased tracer uptake noted in the left breast fulfills quantitative criteria for viable neoplasm. 3. Redemonstrated left axillary, periclavicular and retropectoral hypermetabolic foci fulfill quantitative criteria for viable neoplasm. 4. Redefined and newly apparent left and right lobe hepatic parenchymal hypermetabolic abnormalities fulfill quantitative criteria for viable hepatic neoplasm. (Glynn et al, Archives of Surgery, 133:510 1997). 5. Both persistently demonstrated and newly apparent skeletal fluorine labeled glucose uptake fulfills quantitative criteria for viable osseous neoplasm. (Alicja et al, Clinical Nuclear Medicine, 29:161, 2004). 6. Overall, compared to the prior FDG PET study dated 07/01/24, there is interim metabolic progression of defined viable neoplastic disease within the left breast, the hepatic parenchyma and osseous skeletal structures. There is relative metabolic stability in the left axillary, periclavicular and retropectoral hypermetabolic foci. Test considered but not ordered:N/A ED course: Left-sided chest pain cardiac history. Cardiac workup initiated. EKG of chronic T wave versions V1 V2. Cardiac enzymes D-dimer ordered for further evaluation. Pulse ox 93% on arrival. However did note patient arrival to room she was dyspneic getting into the bed. She is improved at rest. 2255: Initial troponin negative. Review of her PET scan from the , concerning new lesions left-sided chest into her axilla along with liver lobe involvement. With persistent chest pain last couple days neck troponin less likely cardiac in nature. She is concerned of metastatic cancer however also exertional dyspnea, therefore discussed PE rule out will need to be obtained. She had normal creatinine. She has a iodine allergy causing a rash. She reports her nuclear scans does not require pretreatment. I spoke with CT department, dye used for her nuclear scans are different than CT scan. Recommended pretreatment. Solu-Medrol and Benadryl ordered for plan CT. 2354: Reevaluation stable at rest. Awaiting CT scan of the chest for further evaluation primary concerns would be to rule out pulmonary embolism. As result we will plan on ambulation with pulse ox for disposition plans. Patient will be signed out to night physician. Re-evaluation: stable Disposition discussed with patient/family/significant other: Case discussed with consulting clinician: N/A This note was generated with [employer] dictation software. It may contain incorrect words, spelling, and punctuation that were not noted in checking the note before signing. Lab Data Attestation: I reviewed the patient's lab results. Labs: Laboratory Results - last 24 hr 10/25/24 22:00 WBC 10.5 RBC 4.10 L Hgb 11.8 L Hct 36.4 L MCV 88.8 MCH 28.8 MCHC 32.4 RDW Std Deviation 43.2 RDW Coeff of Ruel 13.3 Plt Count 329 MPV 9.7 Immature Gran % (Auto) 0.500 Neut % (Auto) 66.0 Lymph % (Auto) 22.4 [place] % (Auto) 9.4 Eos % (Auto) 1.3 Baso % (Auto) 0.4 Absolute Neuts (auto) 7.0 Absolute Lymphs (auto) 2.36 Nucleated RBC % 0 PT 13.4 INR 1.0 APTT 28.8 D-Dimer Quant (PE/DVT) 0.95 H* Sodium 140 Potassium 3.5 Chloride 101 Carbon Dioxide 33.0 H Anion Gap 5 BUN 16 Creatinine 1.07 H Estim Creat Clear Calc 47.73 Est GFR (MDRD) Af Amer 64 Est GFR (MDRD) Non-Af 53 L BUN/Creatinine Ratio 15.0 Glucose 141 H Calcium 8.8 Troponin I High Sens 9 Discharge Plan Triage Chief Complaint: Shortness of Breath ED Provider: Christian Bernal Dx/Rx/DC Orders Clinical Impression: Breast cancer metastasized to liver, History of coronary artery bypass graft x 3, Chest pain, Dyspnea Prescriptions: No Action aspirin 81 mg tablet,chewable 81 mg PO DAILY nitroglycerin 0.4 mg tablet, sublingual 0.4 mg SL Q5M PRN (Reason: Cardiac/Chest Pain) Qty: 25 3RF lidocaine-prilocaine 2.5-2.5 % cream 1 applic topical ONCE PRN (Reason: port access) 30 Days Qty: 30 2RF potassium chloride 10 MEQ tablet,ER particles/crystals 10 meq PO 4X/DAY hydrochlorothiazide 25 mg tablet 25 tablet PO DAILY metformin 625 mg tablet 625 mg PO BID Trulicity 0.75 mg/0.5 mL pen injector subcut tamoxifen 20 mg tablet 20 mg PO DAILY Qty: 30 12RF metoprolol tartrate 50 mg tablet 50 mg PO BID Qty: 180 3RF (DME) Breast prosthesis (left) See Rx Instructions .Route .MEDSUPPLY Qty: 1 0RF Rx Instructions: As directed (DME) Breast prosthesis (right) See Rx Instructions .Route .MEDSUPPLY Qty: 3 3RF Rx Instructions: As directed (DME) Mastectomy bra See Rx Instructions .Route .MEDSUPPLY Qty: 3 3RF Rx Instructions: As directed isosorbide mononitrate 30 mg tablet extended release 24 hr 30 mg PO DAILY Qty: 90 4RF Primary Care Provider: Jb Cast Referrals: Jb Cast MD [Primary Care Provider] - Print Language: Filipino
[2024-10-25 22:20] LABS: Prothrombin Time (Protime)PT. 13.4 SECONDS (11.7-14.9)
[2024-10-25 22:21] LABS: Partial Thromboplast Time 28.8 Seconds (24.1-36.2)
[2024-10-25 22:22] VITALS: BP 125/68; PULSE 84; RESP 18; TEMP 37.1; O2SAT 92
[2024-10-25 22:33] LABS: Anion Gap 5 (5-15); BUN 16 mg/dL (7-18); Calcium,Total 8.8 mg/dL (8.5-10.1); Chloride 101 mmol/L (98-107); Creatinine, Serum 1.07 mg/dL (0.55-1.02); EST Glomerular Filtration Rate 53 mL/min (>60); Est Glom Filt Rate - Afr Amer 64 mL/min (>60); Estimated Creatinine Clearance 47.73 ml/min; Glucose 141 mg/dL (74-106); Potassium 3.5 mmol/L (3.5-5.1); Sodium Level 140 mmol/L (136-145); Troponin-I HS (w/2H Reflex) 9 pg/mL (3.0-54.0)
[2024-10-25] MEDS: DiphenhydrAMINE 50 MG/ML Syringe IV (22:56)
[2024-10-25] MEDS: MethylPREDNISolone 125 MG/2 ML Vial IV (22:56)
[2024-10-25 23:00] VITALS: BP 110/85; PULSE 79; RESP 17; TEMP 37.1; O2SAT 94
[2024-10-25] MEDS: Morphine 2 MG/ML Syringe IV (23:10)
[2024-10-25 23:12] LABS: D-Dimer Quantitative (DVT/PE) 0.95 FEU/ug/m (0.27-0.49)
[2024-10-26] VITALS: BP 125/69; PULSE 74; RESP 18; TEMP 37.1; O2SAT 92
[2024-10-26 00:08] LABS: Reflex Troponin-HS? (from REC) Y
[2024-10-26 00:28] VITALS: O2SAT 92
[2024-10-26 00:51] LABS: Troponin-I HS 9 pg/mL (3.0-54.0)
[2024-10-26 01:00] VITALS: BP 120/62; PULSE 76; RESP 18; O2SAT 92
[2024-10-26 01:03] VITALS: BP 120/62; PULSE 76; RESP 18; TEMP 37.1; O2SAT 92
[2024-10-26] MEDS: oxyCODONE 5 MG Tablet PO (01:13)
[2024-10-26] MEDS: 0.9 % NaCl (Sterile) Posiflush 10 mL IV (01:14)
[2024-10-26] MEDS: 0.9% Saline Lock 10 ML Syringe IV (01:14)
--- NOTE | 2024-10-26 22:45 | CT_ITS ---
STUDY: CTA CHEST REASON FOR EXAM: Female, 79 years old. Metastatic breast cancer, presenting with shortness of breath RADIATION DOSAGE (If Supplied By Facility): CTDIvol = ( 19.21 ) mGy, DLP = ( 538.17 ) mGycm TECHNIQUE: The examination was performed with the intravenous administration of IV 100mL Isovue-370. Post-processing of the angiographic images was performed, with multiplanar reformation and 3D reconstruction. The protocol utilizes one or more of the following dose reduction techniques: automated exposure control, adjustment of mA and/or kV according to patient size, and/or use of iterative reconstruction technique. COMPARISON: FINDINGS: Normal enhancement of the main pulmonary artery and right and left pulmonary arteries. Normal enhancement of the bilateral peripheral pulmonary arteries. There is no demonstrated pulmonary embolism. Borderline aneurysmal dilatation of ascending aorta measuring 4 cm. No aortic dissection. Borderline cardiomegaly. Coronary artery calcification. Normal pericardium. Normal mediastinum. Normal hilar regions. Normal visualized trachea and bronchi. No confluent pulmonary infiltrate. Bilateral dependent atelectasis versus scar formation at the lung bases. No concerning pulmonary nodules. No pleural effusion or pneumothorax. Lobulated masses within the left anterior chest wall with associated bulky left subpectoral and axillary lymph nodes. Normal osseous structures. Diffuse blastic change within the T7 vertebral body with mixed lytic and blastic change within the T3 vertebral body. Blastic change within the left first rib. Visualized portions of the upper abdomen demonstrate a 27 mm mass associated with the left adrenal gland, unchanged. Hypoattenuated mass within the right hepatic lobe measuring up to 9.7 cm, increased in size. An additional hypoattenuated lesion noted the left hepatic dome, unchanged. Hypoattenuated lesion off of the medial midpole of the left kidney measures near water density CT/CTA Chest W/WO Contrast IMPRESSION: 1. No acute pulmonary embolism. 2. Lobulated masses within the left anterior chest wall with associated left subpectoral and axillary lymphadenopathy 3. Hepatic metastases, increased in size. 4. 27 mm left adrenal gland mass which is unchanged, likely representing an adenoma. 5. Blastic metastatic disease within the thoracic spine and within the left first rib. 6. Borderline aneurysmal dilatation of ascending aorta measuring 4 cm. Electronically Signed: Raul Herron MD at 0:35 EST ,
== END 2024-10-26 01:23 | disposition home or self-care (01) ==
PROVIDERS: Emergency Provider Emergency Medicine; PCP Family Medicine; Referring Provider Emergency Medicine; Visit Provider Emergency Medicine
DX: R07.9 Chest pain, unspecified (principal); C78.7 Secondary malignant neoplasm of liver and intrahepatic bile duct; C79.51 Secondary malignant neoplasm of bone; C79.89 Secondary malignant neoplasm of other specified sites; C50.811 Malignant neoplasm of overlapping sites of right female breast; C50.812 Malignant neoplasm of overlapping sites of left female breast; E11.9 Type 2 diabetes mellitus without complications; I25.10 Atherosclerotic heart disease of native coronary artery without angina pectoris; I10 Essential (primary) hypertension; E78.00 Pure hypercholesterolemia, unspecified; R06.00 Dyspnea, unspecified; Z91.041 Radiographic dye allergy status; Z79.82 Long term (current) use of aspirin; Z79.84 Long term (current) use of oral hypoglycemic drugs; Z79.85 Long-term (current) use of injectable non-insulin antidiabetic drugs; Z86.718 Personal history of other venous thrombosis and embolism; Z80.0 Family history of malignant neoplasm of digestive organs; Z80.3 Family history of malignant neoplasm of breast; Z95.1 Presence of aortocoronary bypass graft; Z95.5 Presence of coronary angioplasty implant and graft
CPT/HCPCS: 36591; 71275; 80048; 84484; 85025; 85379; 85610; 85730; 93005; 96374; 96375; 99285; Q9967; A4216

== ENCOUNTER 2024-11-30 19:51 | Emergency (ER) | payer MEDICARE, OTHER, SELFPAY ==
[2023-01-17 10:06] VITALS: BMI 36.6
[2024-11-30 19:51] VITALS: BP 122/70; PULSE 67; RESP 16; TEMP 36.6; O2SAT 98
[2024-11-30 19:54] VITALS: BMI 32.1
--- NOTE | 2024-11-30 20:08 | EX.ED.DYSGE1 ---
HPI <BELINDA Pizano - Last Filed: 11/30/24 21:40> History of Present Illness Chief Complaint: General Illness Narrative Narrative: Patient is a 79-year-old female with history of type 2 diabetes, hyperlipidemia, significant history of breast cancer. Patient states that she had breast cancer for the last 6 years that has been in remission. Over the last year, the patient has been seeing Dr. Youssef. Patient has had 2 treatments since early October. She gets chemotherapy infusion treatments every 21 days. Since these treatments, she has had a long history of diarrhea, she has been treated for this. She did need IV fluids prior to [place]. She states that she just feels worn out dehydrated and would like fluids again. She denies any fever or chills, she denies any blood in her stool or vomit. 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 Bone metastases Liver metastases Recurrent breast cancer Cancer Diabetes Arthritis High cholesterol Non-smoker CPAP (continuous positive airway pressure) dependence History of echocardiogram History of stress test Cardiology follow-up encounter Screening for colon cancer History of colon polyps History of left heart catheterization (LHC) (~02/02/21) CAD (coronary artery disease) Mass of left breast Essential hypertension Diabetes mellitus type 2 in obese Fracture of hip, right, closed Heel spur Pulmonary hypertension Osteoarthritis History of DVT (deep vein thrombosis) Nonrheumatic tricuspid (valve) insufficiency Nonrheumatic mitral valve regurgitation Atherosclerotic heart disease of false pass coronary artery without angina pectoris Presence of stent in coronary artery (~03/12/12) Chemotherapy management, encounter for Genetic counseling Chemotherapy induced diarrhea Breast cancer PORT PLACEMENT Bilateral malignant neoplasm of breast in female HLD (hyperlipidemia) Home Medications ?Medication ?Instructions ?Recorded ?Last Taken ?Type aspirin 81 mg chewable tablet 81 mg PO DAILY 05/24/20 1 Week Ago History ~01/15/23 nitroglycerin 0.4 mg sublingual 0.4 mg sublingual Q5M PRN 07/22/21 Unknown Rx tablet Cardiac/Chest Pain #25 tabs lidocaine-prilocaine 2.5 %-2.5 % 1 applic topical ONCE PRN port 12/18/22 01/22/23 Rx topical cream access 30 days #30 grams potassium chloride 10 mEq 10 meq PO 4X/DAY 02/07/23 Unknown History tablet,extended release(part/cryst) hydrochlorothiazide 25 mg tablet 25 tablet PO DAILY 03/29/23 Unknown History metformin 625 mg tablet 625 mg PO BID 03/29/23 Unknown History dulaglutide 0.75 mg/0.5 mL 0.75 mg subcut .weekly 12/31/23 Unknown History subcutaneous pen injector (Trulicity) Breast prosthesis (left) #1 ea 02/13/24 Unknown Rx Breast prosthesis (right) #3 ea 02/13/24 Unknown Rx Mastectomy bra #3 ea 02/13/24 Unknown Rx isosorbide mononitrate 30 mg 30 mg PO DAILY #90 tabs 06/25/24 Unknown Rx tablet,extended release 24 hr ondansetron 8 mg disintegrating 8 mg PO Q8H PRN nausea and 10/28/24 Unknown Rx tablet vomiting #30 tabs prochlorperazine maleate 10 mg 10 mg PO Q6H PRN nausea and 10/28/24 Unknown Rx tablet vomiting #30 tabs loperamide 2 mg capsule (Imodium 2 mg PO Q4H PRN loose stool 11/17/24 Unknown History A-D) omeprazole magnesium 20 mg 20 mg PO QDAY #30 tabs 11/17/24 Unknown Rx tablet,delayed release (Prilosec OTC) MAGIC MOUTH WASH (BMX) 180 mL 5 ml buccal QAC #180 mL 11/24/24 Unknown Rx suspension Allergy/AdvReac Type Severity Reaction Status Date / Time iodine Allergy Severe Rash Verified 11/30/24 19:54 povidone-iodine (From AdvReac Severe Itching Verified 11/30/24 19:54 Betadine) pravastatin sodium (From AdvReac Severe LEG CRAMPS Verified 11/30/24 19:54 Pravachol) rosuvastatin calcium (From AdvReac Severe LEG CRAMPS Verified 11/30/24 19:54 Crestor) simvastatin AdvReac Severe LEG CRAMPS Verified 11/30/24 19:54 soap (From Betadine) AdvReac Severe Itching Verified 11/30/24 19:54 ramipril AdvReac Intermediate coughing Verified 11/30/24 19:54 Family History Sister Pancreatic cancer Diabetes Heart disease Leukemia Breast cancer Hypertension Brother Diabetes Bone cancer Heart disease Hypertension CVA (cerebral vascular accident) Father No problems noted. Surgical History Hx of colonoscopy History of cardiac catheterization History of surgery S/P coronary artery bypass graft x 3 (~02/09/21) History of coronary artery bypass graft x 3 (~02/09/21) Presence of coronary angioplasty implant and graft (~03/12/12) History of carpal tunnel surgery Postsurgical percutaneous transluminal coronary angioplasty (PTCA) status History of bilateral mastectomy History of right breast biopsy History of colonoscopy History of knee joint replacement History of cholecystectomy Social History Smoking Status: Never smoker alcohol intake: never substance use type: does not use caffeine: Yes Type: tea Number of servings: 1 ROS <BELINDA Pizano - Last Filed: 11/30/24 21:40> ROS ED ROS Narrative Constitutional: Negative for fever, chills, weight loss. Positive for weakness Eyes: Negative for vision loss, vision change, double vision ENT: Negative for any sore throat, ear pain, congestion Cardiovascular: Negative for any chest pain, tightness, palpitations Respiratory: Negative for any cough, sputum production, hemoptysis, dyspnea, dyspnea on exertion, orthopnea Gastrointestinal: Negative for any abdominal pain, vomiting, constipation, blood in stool, blood in vomit. Positive for nausea, diarrhea : Negative for any urinary frequency, dysuria, retention, blood in urine Muscle skeletal: Negative for any neck pain, back pain Neurological: Negative for any headache, syncope, dizziness Skin: Negative for any rashes, itching, abrasions, lacerations Psychiatric: Negative for any depression, anxiety, stress, suicidal ideation, homicidal ideation Hematologic: Negative for any excessive bruising, easy bleeding EXAM <BELINDA Pizano - Last Filed: 11/30/24 21:40> Physical Exam Narrative Exam Narrative: Vital signs reviewed. HEET: Head normocephalic atraumatic, TMs clear bilaterally. Posterior pharynx is clear, dry mucous membranes. Nares clear bilaterally. Neck: Supple with no lymphadenopathy or tenderness. No signs of meningismus. Cardiac: Regular rate and rhythm no murmurs gallops or rubs, equal peripheral pulses bilaterally. Respiratory: Lungs clear to auscultation bilaterally. No chest tenderness. Abdomen: Soft, nontender, nondistended. No abdominal bruit or pulsatile masses. No hepatosplenomegaly Extremities: No peripheral edema, no signs of gross trauma or deformity. Active full range of motion of all extremities. Neuro: Cranial nerves II through XII intact, no focal neurological deficits. Skin: Clean dry and intact with no rash, purpura, petechiae, vesicles or pustules. Backs/flank: No CVA tenderness, no midline spinal tenderness, no deformity. Psych: Normal mood and affect. No SI, HI or acute psychosis. Const Vital Signs: 11/30/24 19:51 11/30/24 21:51 11/30/24 22:40 Temperature 97.8 F Temperature Source Oral Pulse Rate 67 60 Respiratory Rate 16 16 Blood Pressure 122/70 H 84/45 L 107/68 Blood Pressure Mean 87 58 81 Pulse Ox 98 99 Oxygen Delivery Method Room Air Room Air 11/30/24 22:51 Temperature 98.4 F Temperature Source Pulse Rate 65 Respiratory Rate 18 Blood Pressure 108/48 L Blood Pressure Mean 68 Pulse Ox 97 Oxygen Delivery Method <Allen Morales MD - Last Filed: 11/30/24 23:22> Physical Exam Const Vital Signs: 11/30/24 19:51 11/30/24 21:51 11/30/24 22:40 Temperature 97.8 F Temperature Source Oral Pulse Rate 67 60 Respiratory Rate 16 16 Blood Pressure 122/70 H 84/45 L 107/68 Blood Pressure Mean 87 58 81 Pulse Ox 98 99 Oxygen Delivery Method Room Air Room Air 11/30/24 22:51 Temperature 98.4 F Temperature Source Pulse Rate 65 Respiratory Rate 18 Blood Pressure 108/48 L Blood Pressure Mean 68 Pulse Ox 97 Oxygen Delivery Method MDM <BELINDA Pizano - Last Filed: 11/30/24 21:40> [facility] Lab Data Labs: Laboratory Results - last 24 hr 11/30/24 20:20 WBC 13.5 H RBC 4.35 Hgb 12.2 Hct 38.3 MCV 88.0 MCH 28.0 MCHC 31.9 L RDW Std Deviation 43.7 RDW Coeff of Ruel 14.2 Plt Count 192 MPV 9.6 Immature Gran % (Auto) 1.300 H Neut % (Auto) 80.4 H Lymph % (Auto) 14.9 L [place] % (Auto) 2.5 Eos % (Auto) 0.8 Baso % (Auto) 0.1 Absolute Neuts (auto) 10.8 H Absolute Lymphs (auto) 2.00 Nucleated RBC % 0 Differential Comment SCANNED Sodium 134 L Potassium 3.6 Chloride 99 Carbon Dioxide 28.0 Anion Gap 8 BUN 17 Creatinine 0.91 Estim Creat Clear Calc 53.71 Est GFR (MDRD) Af Amer 77 Est GFR (MDRD) Non-Af 64 BUN/Creatinine Ratio 18.7 Glucose 154 H Calcium 8.2 L Total Bilirubin 0.70 AST 21 ALT 16 Alkaline Phosphatase 107 Total Protein 6.0 L Albumin 2.5 L Globulin 3.5 Albumin/Globulin Ratio 0.7 L Treatment and Re-Evaluation :: Differential diagnosis includes however is not limited to: Dehydration, side effect of chemotherapy, electrode abnormality, C. difficile, failure to thrive Patient appears generally well, vital signs are stable, patient is nontoxic-appearing. Presenting to the emergency department for ongoing diarrhea secondary to chemotherapy. Patient has been on chemotherapy for 1 month. Since then, the patient has had diarrhea, she has had to get infusions of fluids in the past. Patient denies any specific pain fever chills. Patient physical examination was unremarkable. Patient will receive IV fluids, Zofran as well as basic laboratory values. Patient CBC does show slight leukocytosis with a white blood count of 13.5, however since November 17, 2024, she has been downtrending from 17.6. Hemoglobin stable 12.2. Chemistries were unremarkable, glucose was 154, patient received 2 L of normal saline, IV Zofran. Patient felt much improved. She states that she would like to go home and follow-up outpatient. She will continue following up with her oncologist. All questions answered, stable for discharge. <Allen Morales MD - Last Filed: 11/30/24 23:22> [facility] Narrative Medical decision making narrative: Dr. Morales: I have personally performed a face to face assessment of the patient and have reviewed the CHRISSY Note. I performed a substantive portion of the visit including all aspects of the following. My caro findings include: History is nausea, vomiting, but more so diarrhea with chemotherapy infusions. Feels dehydrated. Presents to the emergency department wanting IV fluids for rehydration. Exam is afebrile. Vital signs noted. Cardiovascular examination regular rate and rhythm. Lungs clear to auscultation bilaterally. Nontoxic-appearing. Medical Decision Making: Check labs. IV fluids. Follow-up hematology/oncology. Discharge. Other additions or changes: [None] History & Record Review Discussion w/independent historian: Patient Lab Data Attestation: I reviewed the patient's lab results. Labs: Laboratory Results - last 24 hr 11/30/24 20:20 WBC 13.5 H RBC 4.35 Hgb 12.2 Hct 38.3 MCV 88.0 MCH 28.0 MCHC 31.9 L RDW Std Deviation 43.7 RDW Coeff of [place]uel 14.2 Plt Count 192 MPV 9.6 Immature Gran % (Auto) 1.300 H Neut % (Auto) 80.4 H Lymph % (Auto) 14.9 L [place] % (Auto) 2.5 Eos % (Auto) 0.8 Baso % (Auto) 0.1 Absolute Neuts (auto) 10.8 H Absolute Lymphs (auto) 2.00 Nucleated RBC % 0 Differential Comment SCANNED Sodium 134 L Potassium 3.6 Chloride 99 Carbon Dioxide 28.0 Anion Gap 8 BUN 17 Creatinine 0.91 Estim Creat Clear Calc 53.71 Est GFR (MDRD) Af Amer 77 Est GFR (MDRD) Non-Af 64 BUN/Creatinine Ratio 18.7 Glucose 154 H Calcium 8.2 L Total Bilirubin 0.70 AST 21 ALT 16 Alkaline Phosphatase 107 Total Protein 6.0 L Albumin 2.5 L Globulin 3.5 Albumin/Globulin Ratio 0.7 L Discharge Plan Triage Chief Complaint: General Illness ED Midlevel Provider: Jb Jones ED Provider: Allen Morales Dx/Rx/DC Orders Clinical Impression: Diarrhea, History of breast cancer Instructions: Treating Diarrhea, Self-Care for Vomiting and Diarrhea, ED Diarrhea, Unknown Cause Prescriptions: No Action aspirin 81 mg tablet,chewable 81 mg PO DAILY nitroglycerin 0.4 mg tablet, sublingual 0.4 mg SL Q5M PRN (Reason: Cardiac/Chest Pain) Qty: 25 3RF lidocaine-prilocaine 2.5-2.5 % cream 1 applic topical ONCE PRN (Reason: port access) 30 Days Qty: 30 2RF potassium chloride 10 MEQ tablet,ER particles/crystals 10 meq PO 4X/DAY hydrochlorothiazide 25 mg tablet 25 tablet PO DAILY metformin 625 mg tablet 625 mg PO BID Trulicity 0.75 mg/0.5 mL pen injector 0.75 mg subcut .weekly prochlorperazine maleate 10 mg tablet 10 mg PO Q6H PRN (Reason: nausea and vomiting) Qty: 30 2RF ondansetron 8 mg tablet,disintegrating 8 mg PO Q8H PRN (Reason: nausea and vomiting) Qty: 30 2RF loperamide [Imodium A-D] 2 mg capsule 2 mg PO Q4H PRN (Reason: loose stool) Rx Instructions: administer after each loose stool until symptoms controlled; do not exceed 8 mg per 24 hrs omeprazole magnesium [Prilosec OTC] 20 mg tablet,delayed release (DR/EC) 20 mg PO QDAY Qty: 30 2RF MAGIC MOUTH WASH (BMX) 180 mL suspension 5 ml buccal QAC Qty: 180 0RF Rx Instructions: diphenhydramine 12.5 mg/5 mL oral liquid 60 mL; aluminum-mag hydroxide-simethicone 400 mg-400 mg-40 mg/5 mL oral susp 60 mL; Lidocaine Viscous 2 % mucosal solution 60 mL; Per 180 mL (DME) Breast prosthesis (left) See Rx Instructions .Route .MEDSUPPLY Qty: 1 0RF Rx Instructions: As directed (DME) Breast prosthesis (right) See Rx Instructions .Route .MEDSUPPLY Qty: 3 3RF Rx Instructions: As directed (DME) Mastectomy bra See Rx Instructions .Route .MEDSUPPLY Qty: 3 3RF Rx Instructions: As directed isosorbide mononitrate 30 mg tablet extended release 24 hr 30 mg PO DAILY Qty: 90 4RF Primary Care Provider: Jb Cast Referrals: Jb Cast MD [Primary Care Provider] - Activity Restrictions/Additional Instructions: Continue to follow-up outpatient. Print Language: Wolof Disposition Disposition: Home, Self Care Discharge Date/Time: 11/30/24 22:52
[2024-11-30] MEDS: 0.9% Normal Saline (1000mL) 1,000 ML 999 ML IV ×2 (20:22→20:51)
[2024-11-30] MEDS: Ondansetron 4 MG/2 ML Vial IV (20:25)
[2024-11-30 20:31] LABS: Absolute Neutrophil Count 10.8 X10^3/uL (2.0-7.7); Basophil# 0.01 X10^3/uL; Basophil% 0.1 % (0-1); Eosinophil# 0.11 X10^3/uL; Eosinophils% 0.8 % (0-5); Hematocrit 38.3 % (37-47); Hemoglobin 12.2 g/dL (12.0-15.0); Lymphocyte % 14.9 % (19-41); Mean Corp Hgb Conc 31.9 g/dL (32-36); Mean Platelet Vol. 9.6 fl (6.2-12.0); Monocyte# 0.33 X10^3/uL; Monocyte% 2.5 % (0-10); NRBC Flagged by Analyzer 0 % (0-5); Neutrophil # 10.84 X10^3/uL (2.7-7.7); Neutrophil % 80.4 % (47-70); POSITIVE MORPHOLOGY YES; Platelet Count 192 K/mm3 (150-450); RBC Distribution Width CV 14.2 % (11.6-14.6); RBC Distribution Width SD 43.7 fl (35.1-43.9); Red Blood Count 4.35 M/mm3 (4.2-5.4); White Blood Count 13.5 K/mm3 (4.4-11.0)
[2024-11-30 20:34] LABS: Differential Indicated SCAN CRITERIA MET
[2024-11-30 20:47] LABS: ALB/GLOB Ratio 0.7 RATIO (0.9-2.4); AST(SGOT) 21 U/L (15-37); Alanine Aminotransfer ALT/SGPT 16 U/L (13-56); Albumin, Serum 2.5 g/dL (3.2-5.0); Alkaline Phosphatase 107 U/L (45-117); Anion Gap 8 (5-15); BUN 17 mg/dL (7-18); BUN/Creat Ratio 18.7 RATIO (10-20); Calcium,Total 8.2 mg/dL (8.5-10.1); Chloride 99 mmol/L (98-107); Creatinine, Serum 0.91 mg/dL (0.55-1.02); EST Glomerular Filtration Rate 64 mL/min (>60); Est Glom Filt Rate - Afr Amer 77 mL/min (>60); Estimated Creatinine Clearance 53.71 ml/min; Globulin 3.5 g/dL (2.2-4.2); Glucose 154 mg/dL (74-106); Potassium 3.6 mmol/L (3.5-5.1); Sodium Level 134 mmol/L (136-145)
[2024-11-30 20:55] LABS: Differential Comment SCANNED
[2024-11-30 21:51] VITALS: BP 84/45; PULSE 60; RESP 16; O2SAT 99
[2024-11-30 22:40] VITALS: BP 107/68
[2024-11-30 22:51] VITALS: BP 108/48; PULSE 65; RESP 18; TEMP 36.9; O2SAT 97
== END 2024-11-30 22:52 | disposition home or self-care (01) ==
PROVIDERS: Nurse Practitioner; Emergency Provider Emergency Medicine; PCP Family Medicine; Visit Provider Emergency Medicine
DX: E11.9 Type 2 diabetes mellitus without complications (principal); I25.10 Atherosclerotic heart disease of native coronary artery without angina pectoris; T45.1X5A Adverse effect of antineoplastic and immunosuppressive drugs, initial encounter; K52.1 Toxic gastroenteritis and colitis; I10 Essential (primary) hypertension; E78.00 Pure hypercholesterolemia, unspecified; Z85.3 Personal history of malignant neoplasm of breast; Z80.3 Family history of malignant neoplasm of breast; Z95.1 Presence of aortocoronary bypass graft; Z95.5 Presence of coronary angioplasty implant and graft
CPT/HCPCS: 80053; 85025; 96361; 96374; 99283; A4216; J2405